=== PATIENT | male | born 1975 | race Hispanic/Latino ===

== ENCOUNTER 2017-02-08 17:04 | Inpatient (IN) | payer MEDICAID, OTHER ==
[2017-02-08 17:05] VITALS: BMI 24.3
[2017-02-08 17:50] LABS: BASO # 0.1 K/uL (0.0-0.2); BASO % 1.1 % (0.0-2.0); EOS # 0.2 K/uL (0.0-0.7); EOS % 2.1 % (0.0-4.0); HEMATOCRIT 43.2 % (35.0-51.0); LYMPH # 4.3 K/uL (1.0-4.3); LYMPH % 42.5 % (20.0-40.0); MEAN CELL VOLUME 95.2 fL (80.0-94.0); MEAN CORPUSCULAR HEMOGLOBIN 33.4 pg (27.0-31.0); MEAN CORPUSCULAR HGB CONC 35.1 g/dL (33.0-37.0); MEAN PLATELET VOLUME 8.1 fL (7.2-11.7); MONO # 0.5 K/uL (0.0-0.8); NRBC % 0.1 % (0.0-2.0); RED CELL DISTRIBUTION WIDTH 12.6 % (11.5-14.5); WHITE BLOOD COUNT 10.2 K/uL (4.8-10.8)
[2017-02-08 18:00] LABS: RBC URINE < 1 /hpf (0-3); URINE BILIRUBIN NEGATIVE (NEGATIVE); URINE BLOOD NEGATIVE (NEGATIVE); URINE COLOR Straw (YELLOW); URINE GLUCOSE (UA) 3+ mg/dL (Normal); URINE KETONE TRACE mg/dL (NEGATIVE); URINE LEUKOCYTE ESTERASE NEG Leu/uL (Negative); URINE PROTEIN NEGATIVE (NEGATIVE); URINE UROBILINOGEN NORMAL mg/dL (0.2-1.0); WBC URINE < 1 /hpf (0-5)
[2017-02-08 18:01] LABS: CHLORIDE 96 mmol/L (98-107); POTASSIUM 4.3 mmol/L (3.6-5.2); SODIUM 134 mmol/L (132-148)
[2017-02-08 18:03] LABS: BILIRUBIN,TOTAL 0.5 mg/dL (0.2-1.3); CARBON DIOXIDE 22 mmol/L (22-30); GFR AFRICAN-AMERICAN > 60
[2017-02-08 18:04] LABS: ALB/GLOB RATIO 1.3 (1.0-2.1); ALCOHOL SERUM 161 mg/dl (0-10); ALKALINE PHOSPHATASE 85 U/L (38-126); ALT/SGPT 47 U/L (21-72); AST/SGOT 31 U/L (17-59); BLOOD UREA NITROGEN 9 mg/dL (9-20); CALCIUM 9.7 mg/dl (8.6-10.4); GLUCOSE,RANDOM 364 mg/dL (75-110); TOTAL PROTEIN 7.9 g/dL (6.3-8.3)
--- NOTE | 2017-02-08 21:46 | PCM.BM ---
<Boo Mckinnon - Last Filed: 02/08/17 21:46> Treatment Plan Problems - Problems identified on initial assessmt Alcohol abuse Date Initiated: 02/08/17 Time Initiated: 20:00 Assessment reference: NA Status: Active Treatment assets and liabiliti Patient Assests: adapts well, educated, ADL independent, good support system, negotiates basic needs Patient Liabilities: dietary restrictions (diabetic diet), substance abuse ( alcohol), medical problems (diabetes) - Milieu Protocol Maintain good personal hygiene: daily Encourage regular showers, daily Remind patient to perform daily oral care Maintain personal safety: every shift Educate patient to report safety concerns to staff, every shift Monitor environment for contraband/sharps Medication safety: Monitor for expected outcome, potential side effects: every shift, Assess barriers to learning: every shift, Assess readiness for medication education: every shift <Gasper Harper - Last Filed: 02/11/17 12:52> - Diagnosis (1) Alcohol use disorder, severe, dependence Status: Acute Interventions: 02/11/17 12:52 * Assess 7x/week regarding severity of withdrawal * Educate regarding risks, benefits, side effects and alternatives of medications * Use Motivational Interviewing for abstinence * Use CBT for relapse prevention * Medication management for withdrawal symptoms * Encourage medication assisted treatment *
--- NOTE | 2017-02-08 23:46 | C.PDOC ---
History Of Present Illness 41 year old male who presents to the ER as a prescreen for ETOH detox. Patient reports his last drink was earlier today. Denies substance abuse or physical complaints. Chief Complaint (Nursing): Substance Abuse History Per: Patient History/Exam Limitations: no limitations Onset/Duration Of Symptoms: Days Current Symptoms Are (Timing): Still Present Suicide/Self Injury Attempted (Context): None Modifying Factor(s): Alcohol Associated Symptoms: denies: Depression, Suicidal Thoughts, Suicidal Plan Involuntary Hold By: None Recent travel outside of the [place]: No Past Medical History Reviewed: Historical Data, Nursing Documentation, Vital Signs Vital Signs: Last Vital Signs Temp 97.8 F 02/08/17 20:27 Pulse 120 H 02/08/17 20:47 Resp 18 02/08/17 20:27 BP 134/88 02/08/17 20:27 Pulse Ox 96 02/08/17 23:58 - Medical History PMH: Diabetes (Type 2), Gastritis - [facility] Procedures CLOSURE SKIN & SUBCUTANEOUS NEC (06/04/03) ESOPHAGOGASTRODUODENOSCOPY [EGD] W/CLOSED BIOPSY (11/12/14) INFLUENZA VACCINATION (02/05/13) LARYGNOSCOPY AND OTH TRACHEOSCOPY (05/02/14) Family History: States: Unknown Family Hx - Social History Hx Tobacco Use: Yes Hx Alcohol Use: Yes Hx Substance Use: No - Immunization History Hx Tetanus Toxoid Vaccination: Yes Hx Influenza Vaccination: No Hx Pneumococcal Vaccination: No Review Of Systems Constitutional: Negative for: Fever, Chills Gastrointestinal: Negative for: Nausea, Vomiting, Diarrhea Physical Exam - Physical Exam Appears: Non-toxic, No Acute Distress Skin: Normal Color, Warm, Dry Head: Atraumatic, Normacephalic Oral Mucosa: Moist Chest: Symmetrical Cardiovascular: Rhythm Regular Respiratory: Normal Breath Sounds, No Rales, No Rhonchi, No Wheezing Gastrointestinal/Abdominal: Soft, No Tenderness Neurological/Psych: Oriented x3, Normal Speech, Normal Cognition ED Course And Treatment - Laboratory Results Result Diagrams: 02/08/17 17:44 02/08/17 17:44 O2 Sat by Pulse Oximetry: 96 (Room air) Pulse Ox Interpretation: Normal Progress Note: Blood work and urinalysis ordered. Crisis notified. Disposition - Disposition Disposition: HOSPITALIZED Disposition Time: 19:00 Condition: STABLE - Clinical Impression Clinical Impression: Alcohol abuse - Scribe Statement The provider has reviewed the documentation as recorded by the Scribe Brendan Joseph All medical record entries made by the Scribe were at my direction and personally dictated by me. I have reviewed the chart and agree that the record accurately reflects my personal performance of the history, physical exam, medical decision making, and the department course for this patient. I have also personally directed, reviewed, and agree with the discharge instructions and disposition.
[2017-02-09] MEDS: Multiple Vitamins Tab PO SCH (09:34)
--- NOTE | 2017-02-09 11:34 | PCM.PSYCH ---
Initial Psychiatric Evaluation - Initial Psychiatric Evaluation Type of Admission: Voluntary Legal Status: Capacity Chief Complaint (in patient's own words): "Alcohol" History of Present Illness and Precipitating Events: The patient is seen, chart reviewed and case discussed. This is a 41-year-old male, single with no child, lives with his father and brother in [place]. 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 The patient admits to drinking from 1 pint to 3 pints every day for the past 2 years. However he first started drinking heavily 10 years ago. He smokes 2 packs per day cigarette and denies all other drugs. No history of DTs or seizures. He has never been to alcohol treatment before including AA. Past psych history: Denies Family psych history: Denies Medical history: Diabetes. He was on metformin but he stopped and just kept drinking and his sugar was very high on admission. Current Medications: Active Medications Generic Name Dose Route Start Last Admin Trade Name Freq PRN Reason Stop Dose Admin Chlordiazepoxide 25 mg 02/08/17 21:15 02/09/17 06:09 Librium PO 02/12/17 21:14 25 mg Q6 LUCILA Administration Taper Chlordiazepoxide 25 mg 02/08/17 22:20 Librium PO Q4H PRN alcohol withdrawal Clonidine HCl 0.1 mg 02/08/17 22:18 02/09/17 08:47 Catapres PO 0.1 mg Q4H PRN Administration Symptoms of alcohol withdrawl Folic Acid 1 mg 02/09/17 10:00 02/09/17 09:34 Folic Acid PO 1 mg DAILY LUCILA Administration Gabapentin 300 mg 02/09/17 10:00 02/09/17 09:37 Neurontin PO 300 mg TID LUCILA Administration Hydroxyzine HCl 50 mg 02/08/17 22:20 02/09/17 02:57 Atarax PO 50 mg Q6H PRN Administration Anxiety Ibuprofen 600 mg 02/08/17 22:20 Motrin Tab PO Q6H PRN Pain, moderate (4-7) Metformin HCl 500 mg 02/08/17 21:30 02/09/17 09:34 Glucophage PO 500 mg BID LUCILA Administration Multivitamins 1 tab 02/09/17 10:00 02/09/17 09:34 Hexavitamin PO 1 tab DAILY LUCILA Administration Nicotine 1 patch 02/09/17 10:00 02/09/17 09:34 Nicoderm Cq TD 1 patch DAILY LUCILA Administration Pneumococcal Polyvalent Vaccine 0.5 ml 02/11/17 10:00 Pneumovax 23 Vaccine IM 02/11/17 10:01 .ONCE ONE Quetiapine Fumarate 100 mg 02/09/17 22:00 Seroquel PO HS LUCILA Thiamine HCl 100 mg 02/09/17 10:00 02/09/17 09:37 Vitamin B1 Tab PO 100 mg DAILY LUCILA Administration Trazodone HCl 100 mg 02/08/17 22:18 Desyrel PO HS PRN Insomnia Past Psychiatric History - Past Psychiatric History Previous Treatment History: None Pertinent Medical Hx (Current Medical&Sleep Prob, Allergies): Allergies Allergy/AdvReac Type Severity Reaction Status Date / Time No Known Allergies Allergy Verified 02/08/17 17:12 MetFORMIN [glucoPHAGE] 1,000 mg PO DAILY #14 tab 12/22/16 Review of Systems - Neurological Neurological: UNREMARKABLE - Psychiatric Psychiatric: Abnormal Sleep Pattern, Anxiety. absent: Depression, Hallucinations, Homicidal Ideation, Suicidal Ideation Mental Status Examination - Personal Presentation Personal Presentation: Looks stated age - Affect Affect: Constricted - Motor Activity Motor Activity: Calm - Reliability in Providing Information Reliability in Providing Information: Good - Speech Speech: Organized - Mood Mood: Anxious - Formal Thought Process Formal Thought Process: No Impairment - Cognitive Functions Orientation: Person, Place, Situation, Time Sensorium: Alert Estimate of Intelligence: Average Judgement: Intact, as evidence by: Insight regarding need for hospitalization Memory: Recent intact, as evidence by: Ability to recall events of the day, Remote intact, as evidenced by: Abilit to recall sig. life events - Risk Risk: Withdrawal, Diminished functioning - Strength & Assets Inventory Strength & Assets Inventory: Cooperative - Limitations Limitations: Other DSM 5 DX - DSM 5 DSM 5 Diagnosis: Alcohol withdrawal - uncomplicated Alcohol use d/o - severe Tobacco use d/o - severe - Recommended/Plan of Treatment Treatment Recommendations and Plan of Treatment: Librium detox As needed medications Seroquel for sleep Gabapentin for augmentation Attend groups and activities Supportive therapy and psychoeducation [place] for abstinence CBT for relapse prevention Encourage MAT Refer to rehab or IOP Attend self-help groups as well Resume metformin Check accucheck Consult if needed 34 min Projected ELOS: 5 days Prognosis: good with treatment Discharge Plan and Discharge Criteria: No wdw sxs refer to rehab - Smoking Cessation Smoking Cessation Initiated: Yes
[2017-02-09 18:45] LABS: MAGNESIUM 1.7 mg/dL (1.6-2.3)
[2017-02-09 19:15] LABS: THYROID STIMULATING HORMONE 0.54 mIU/L (0.46-4.68)
[2017-02-10] MEDS: Multiple Vitamins Tab PO SCH (09:31)
--- NOTE | 2017-02-10 12:48 | RAD ---
HISTORY: productive cough, alcohol patient COMPARISON: No prior. TECHNIQUE: Chest PA and lateral FINDINGS: LUNGS: No active pulmonary disease. PLEURA: No significant pleural effusion identified. No pneumothorax apparent. CARDIOVASCULAR: Normal. OSSEOUS STRUCTURES: No significant abnormalities. VISUALIZED UPPER ABDOMEN: Normal. OTHER FINDINGS: None. IMPRESSION: No active disease.
--- NOTE | 2017-02-10 12:48 | PCM.PYCHPN ---
Psychiatric Progress Note - Psychiatric Progress Note Patient seen today, length of contact: 16 min Patient Chief Complaint: "Not well" Problems Identified/Issues Discussed: The pt is seen, chart reviewed, case discussed with staff. Support given, CBT and [place] used briefly No new symptoms reported, improving slowly and needs more time No SEs from medications, risks discussed. After care discussed Medication Change: Yes (detox changes daily, and is adjusted) Medical Record Reviewed: Yes Mental Status Examination - Cognitive Function Orientation: Person, Place, Situation, Time Memory: Impaired Attention: Poor Concentration: Poor Association: WNL Fund of Knowledge: WNL - Mood Mood: Anxious - Affect Affect: Constricted - Speech Speech: Appropriate - Formal Thought Process Formal Thought Process: No Impairment - Suicidal Ideation Suicidal Ideation: No - Homicidal Ideation Homicidal Ideation: No Goal/Treatment Plan - Goal/Treatment Plan Need for Continued Stay: Discharge may exacerbated symptoms, Severe functional impairment Progress Toward Problem(s) and Goals/Treatment Plan: Librium detox As needed medications Seroquel for sleep Gabapentin for augmentation Attend groups and activities Supportive therapy and psychoeducation [place] for abstinence CBT for relapse prevention Encourage MAT Refer to rehab or IOP Attend self-help groups as well Resume metformin Check accucheck Consult if needed
[2017-02-10] MEDS: Propranolol 60 mg ER Cap PO SCH (14:04)
[2017-02-11] MEDS: Multiple Vitamins Tab PO SCH (09:17)
[2017-02-11] MEDS ORDERED: Pneumococcal 23-Valent Vaccine IM ONE (10:00)
--- NOTE | 2017-02-11 13:55 | PCM.PYCHPN ---
Psychiatric Progress Note - Psychiatric Progress Note Patient seen today, length of contact: 16 min Patient Chief Complaint: "Feeling muhc better than before" Problems Identified/Issues Discussed: The pt is seen, chart reviewed, case discussed with staff. Pt stating he is feeling more anxious and still shaking Educated patient on controlling his blood sugar levels. No SEs from medications, risks discussed. Discussed starting patient on naltrexone. Pt plans to go to AA meetings and CRC after discharge Medication Change: Yes (detox changes daily, and is adjusted) Medical Record Reviewed: Yes Mental Status Examination - Cognitive Function Orientation: Person, Place, Situation, Time Memory: Intact Attention: WNL Concentration: WNL Association: WNL Fund of Knowledge: WNL - Mood Mood: Anxious - Affect Affect: Constricted - Speech Speech: Appropriate - Formal Thought Process Formal Thought Process: No Impairment - Suicidal Ideation Suicidal Ideation: No - Homicidal Ideation Homicidal Ideation: No Goal/Treatment Plan - Goal/Treatment Plan Need for Continued Stay: Discharge may exacerbated symptoms Progress Toward Problem(s) and Goals/Treatment Plan: Librium detox As needed medications Seroquel for sleep Gabapentin for augmentation Attend groups and activities Supportive therapy and psychoeducation [place] for abstinence CBT for relapse prevention Encourage MAT Refer to rehab or IOP Attend self-help groups as well Resume metformin Check accucheck Consult if needed - Smoking Cessation Smoking Cessation Initiated: No
[2017-02-11] MEDS: Propranolol 60 mg ER Cap PO SCH (14:24)
[2017-02-12] MEDS: Multiple Vitamins Tab PO SCH (09:49)
--- NOTE | 2017-02-12 13:29 | PCM.PYCHPN ---
Psychiatric Progress Note - Psychiatric Progress Note Patient seen today, length of contact: 16 min Patient Chief Complaint: "Feels Good" Problems Identified/Issues Discussed: The pt is seen, chart reviewed, case discussed with staff. Support given, CBT and [place] used briefly Still feels anxious and shaky , feels pain all around his joints. Pt slept well No SEs from medications, risks discussed. Discussed discharge plans with patient Medication Change: Yes (detox changes daily, and is adjusted) Medical Record Reviewed: Yes Mental Status Examination - Cognitive Function Orientation: Person, Place, Situation, Time Memory: Intact Attention: WNL Concentration: WNL Association: WNL Fund of Knowledge: WNL - Mood Mood: Anxious - Affect Affect: Constricted - Speech Speech: Stammering - Formal Thought Process Formal Thought Process: No Impairment - Suicidal Ideation Suicidal Ideation: No - Homicidal Ideation Homicidal Ideation: No Goal/Treatment Plan - Goal/Treatment Plan Need for Continued Stay: Discharge may exacerbated symptoms Progress Toward Problem(s) and Goals/Treatment Plan: Librium detox As needed medications Seroquel for sleep Gabapentin for augmentation Attend groups and activities Supportive therapy and psychoeducation [place] for abstinence CBT for relapse prevention Encourage MAT Refer to rehab or IOP Attend self-help groups as well Resume metformin Check accucheck Consult if needed - Smoking Cessation Smoking Cessation Initiated: No
[2017-02-12] MEDS: Aluminum Hydroxide/Magnesium Hydroxide Susp (30 mL) PO PRN (16:48)
[2017-02-13 06:55] VITALS: RESP 18
[2017-02-13] MEDS: Aluminum Hydroxide/Magnesium Hydroxide Susp (30 mL) PO PRN ×2 (08:58→20:13)
[2017-02-13] MEDS: Multiple Vitamins Tab PO SCH (09:54)
--- NOTE | 2017-02-13 14:20 | PCM.PYCHPN ---
Psychiatric Progress Note - Psychiatric Progress Note Patient seen today, length of contact: 16 min Patient Chief Complaint: "Feels Good" Problems Identified/Issues Discussed: The pt is seen, chart reviewed, case discussed with staff. Support given, CBT and [place] used briefly Pt slept well PT still feels anxious but having fewer tremors than yesterday. Recommended using naltrexone up to 6 months after discharge Discussed going to out [facility] in [place] and attend AA meetings in the area Medication Change: Yes (detox changes daily, and is adjusted) Medical Record Reviewed: Yes Mental Status Examination - Cognitive Function Orientation: Person, Place, Situation, Time Memory: Intact Attention: WNL Concentration: WNL Association: WNL Fund of Knowledge: WNL - Mood Mood: Anxious - Affect Affect: Constricted - Speech Speech: Stammering - Formal Thought Process Formal Thought Process: No Impairment - Suicidal Ideation Suicidal Ideation: No - Homicidal Ideation Homicidal Ideation: No Goal/Treatment Plan - Goal/Treatment Plan Need for Continued Stay: Discharge may exacerbated symptoms Progress Toward Problem(s) and Goals/Treatment Plan: Librium detox As needed medications Seroquel for sleep Gabapentin for augmentation Attend groups and activities Supportive therapy and psychoeducation [place] for abstinence CBT for relapse prevention Encourage MAT Refer to rehab or IOP Attend self-help groups as well Resume metformin Check accucheck Consult if needed
--- NOTE | 2017-02-14 08:43 | PCM.PYCHDC ---
Mental Status Examination - Mental Status Examination Orientation: Person, Place, Situation, Time Memory: Intact Mood: Anxious Affect: Constricted Speech: Stammering Attention: WNL Concentration: WNL Association: WNL Fund of Knowledge: WNL Formal Thought Process: No Impairment Suicidal Ideation: No Current Homicidal Ideation?: No Discharge Summary - Discharge Note Reason for Hospitalization: Alcohol Withdrawal and Detox Laboratory Data: Abnormal Lab Results 02/13/17 07:36 POC Glucose (mg/dL) 329 H Consultations:: List each consultation separately and include: 1. Reason for request. 2. Findings. 3. Follow-up Summary of Hospital Course include:: 1. Description of specific treatment plan utilized for patients during their course of treatmen. 2. Summarize the time- course for resolution of acute symptoms and/or regressed behaviors. 3. Describe issues identified and worked on during hospitalization. 4. Describe medication utilized. 5. Describe medical problems identified and treated. 6. Reassessment of suicide risk Summary of Hospital Course: The pt was admitted and started on treatment with psychotherapy, support, psychoeducation and medications. [place] and CBT used. The pt attended groups and activities, as well as milieu therapy. All the risks and benefits of medications are discussed and the patient understood and agreed. The pt improved with the treatments provided Still Feels anxious but has little to no tremors Has been sleeping well Pt talked to to attend [facility] facility, [facility] after discharge - Final Diagnosis (DSM 5) Condition upon Discharge: STABLE DSM 5: Alcohol Use disorder- Severe Alcohol Withdrawal Disposition: HOME/ ROUTINE Follow-up Treatment Plan: Continue below medications after discharge. Discharged to [facility] and recommended to attend AA meetings Use relapse prevention skills Return to ER or call 911 if suicidal, homicidal or symptoms relapse. Stay away from stress, alcohol and drugs. See primary doctor regularly and get labs. Prescriptions/Medication Reconciliation: Gabapentin [Neurontin] 400 mg PO TID #90 cap metFORMIN [glucOPHAGE] 500 mg PO BID #60 tab Naltrexone [Revia] 50 mg PO DAILY #30 tab QUEtiapine [Seroquel] 100 mg PO HS #30 tab traZODone [Desyrel] 50 mg PO HS PRN #30 tab PRN Reason: Insomnia - Smoking Cessation Smoking Cessation Medication prescribed: No - Antipsychotic Medications Pt discharged on 2 or more routine antipsychotic medications: No
[2017-02-14] MEDS: Multiple Vitamins Tab PO SCH (09:00)
[2017-02-14] MEDS: Aluminum Hydroxide/Magnesium Hydroxide Susp (30 mL) PO PRN (09:03)
[2017-02-14 09:12] VITALS: BP 120/77; PULSE 93; TEMP 97.6; O2SAT 99
== END 2017-02-14 10:00 | disposition home or self-care (01) | DRG 751 ==
LOC: C.ER 17:04 → C.7D 19:16
PROVIDERS: ADMIT Psychiatry & Neurology Psychiatry; ATTEND Psychiatry & Neurology Psychiatry
DX: F10.239 Alcohol dependence with withdrawal, unspecified (principal); E11.9 Type 2 diabetes mellitus without complications; F17.210 Nicotine dependence, cigarettes, uncomplicated

== ENCOUNTER 2017-06-20 13:25 | Inpatient (IN) | payer MEDICAID, OTHER ==
[2017-06-20 13:25] VITALS: BMI 24.3
[2017-06-20 15:07] LABS: URINE BACTERIA RARE (<OCC); URINE BILIRUBIN NEGATIVE (NEGATIVE); URINE BLOOD NEGATIVE (NEGATIVE); URINE CLARITY Clear (Clear); URINE COLOR Yellow (YELLOW); URINE GLUCOSE (UA) 3+ mg/dL (Normal); URINE LEUKOCYTE ESTERASE NEG Leu/uL (Negative); URINE NITRATE NEGATIVE (NEGATIVE); URINE PROTEIN NEGATIVE (NEGATIVE)
[2017-06-20 15:10] LABS: BASO % 0.5 % (0.0-2.0); EOS % 0.3 % (0.0-4.0); HEMOGLOBIN 16.5 g/dL (12.0-18.0); LYMPH # 1.2 K/uL (1.0-4.3); LYMPH % 15.5 % (20.0-40.0); MEAN CORPUSCULAR HEMOGLOBIN 31.8 pg (27.0-31.0); MEAN CORPUSCULAR HGB CONC 34.9 g/dL (33.0-37.0); MEAN PLATELET VOLUME 8.3 fL (7.2-11.7); MONO # 0.4 K/uL (0.0-0.8); MONO % 4.5 % (0.0-10.0); NEUT # 6.3 K/uL (1.8-7.0); NEUT % 79.2 % (50.0-75.0); RBC 5.2 Mil/uL (4.40-5.90); RED CELL DISTRIBUTION WIDTH 15.7 % (11.5-14.5); WHITE BLOOD COUNT 7.9 K/uL (4.8-10.8)
[2017-06-20 15:16] LABS: MEAN CELL VOLUME 91.2 fL (80.0-94.0)
[2017-06-20 15:23] LABS: ALBUMIN 4.5 g/dL (3.5-5.0); BLOOD UREA NITROGEN 13 mg/dL (9-20); CALCIUM 9.5 mg/dl (8.6-10.4); GFR AFRICAN-AMERICAN > 60; GFR NON-AFRICAN AMERICAN > 60
[2017-06-20 15:24] LABS: ALB/GLOB RATIO 1.2 (1.0-2.1); ALT/SGPT 34 U/L (21-72); AST/SGOT 49 U/L (17-59)
[2017-06-20 15:42] LABS: BARBITURATES, UR NEGATIVE (NEGATIVE); BENZODIAZEPINES, UR NEGATIVE (NEGATIVE); OPIATES, UR NEGATIVE (NEGATIVE); PHENCYCLIDINE, UR NEGATIVE (NEGATIVE)
[2017-06-20] MEDS ORDERED: Sodium Chloride 0.9% 1,000 ML IV ONE (15:42)
[2017-06-20] MEDS ORDERED: Potassium Chloride 20 mEq ER Tab PO ONE (16:01)
[2017-06-20] MEDS ORDERED: Sodium Chloride 0.9% 250 ML IV ONE (16:01)
[2017-06-20] MEDS: Potassium Chloride 20 mEq ER Tab PO SCH (16:02)
[2017-06-20] MEDS ORDERED: Multivitamin (MVI) 10 ML, Thiamine 100 MG, Folic Acid 1 MG in Sodium Chloride 0.9% 1,00... IV ONE (16:43)
[2017-06-20 16:51] VITALS: RESP 20
[2017-06-20] MEDS: Multivitamin (MVI) 10 ML, Thiamine 100 MG, Folic Acid 1 MG in Sodium Chloride 0.9% 1,00... IV SCH (18:50)
[2017-06-20 19:10] LABS: MAGNESIUM 1.6 mg/dL (1.6-2.3)
--- NOTE | 2017-06-20 20:14 | C.PDOC ---
History Of Present Illness 41 y/o male presents to the ER for detox from ETOH. Patient reports that his last drink was at 5:30 pm yesterday. Patient denies fever, cough, chest pain, and SOB. Chief Complaint (Nursing): Substance Abuse History Per: Patient History/Exam Limitations: no limitations Past Medical History Reviewed: Historical Data, Nursing Documentation, Vital Signs Vital Signs: Last Vital Signs Temp 98.2 F 06/20/17 16:30 Pulse 120 H 06/20/17 16:30 Resp 20 06/20/17 16:30 BP 118/86 06/20/17 16:30 Pulse Ox 98 06/20/17 20:23 - Medical History PMH: Anxiety, Diabetes (metformin), Gastritis Denies: Depression, Hepatitis, HIV, HTN, Chronic Kidney Disease, Seizures, Sexually Transmitted Disease Surgical History: No Surg Hx - [facility] Procedures CLOSURE SKIN & SUBCUTANEOUS NEC (06/04/03) ESOPHAGOGASTRODUODENOSCOPY [EGD] W/CLOSED BIOPSY (11/12/14) INFLUENZA VACCINATION (02/05/13) LARYGNOSCOPY AND OTH TRACHEOSCOPY (05/02/14) Family History: States: No Known Family Hx - Social History Hx Tobacco Use: Yes Hx Alcohol Use: Yes Hx Substance Use: Yes - Immunization History Hx Tetanus Toxoid Vaccination: No Hx Influenza Vaccination: No Hx Pneumococcal Vaccination: No Review Of Systems Constitutional: Negative for: Fever, Chills Cardiovascular: Negative for: Chest Pain Respiratory: Negative for: Cough, Shortness of Breath Physical Exam - Physical Exam Appears: No Acute Distress Skin: Normal Color, Warm Head: Atraumatic, Normacephalic Eye(s): bilateral: Normal Inspection Nose: Normal Oral Mucosa: Moist Neck: Supple Chest: Symmetrical Cardiovascular: Rhythm Regular Respiratory: Normal Breath Sounds, No Accessory Muscle Use, No Rales, No Rhonchi , No Wheezing Neurological/Psych: Oriented x3, Normal Speech, Other (hand tremors) Other Neurological Findings: Other (mild tongue fasciculation) ED Course And Treatment - Laboratory Results Result Diagrams: 06/20/17 15:01 06/20/17 15:01 O2 Sat by Pulse Oximetry: 98 (RA) Pulse Ox Interpretation: Normal Progress Note: After reviewing the labs, patient has been admitted to ' s service for low sodium, low potassium, and high glucose levels. Disposition - Disposition Disposition: HOSPITALIZED Disposition Time: 15:30 Condition: STABLE - Clinical Impression Clinical Impression: Alcohol use disorder, severe, dependence, Hyperglycemia, Hyponatremia - Scribe Statement The provider has reviewed the documentation as recorded by the Michelle Ruelas Provider Attestation: All medical record entries made by the Michelle were at my direction and personally dictated by me. I have reviewed the chart and agree that the record accurately reflects my personal performance of the history, physical exam, medical decision making, and the department course for this patient. I have also personally directed, reviewed, and agree with the discharge instructions and disposition.
[2017-06-21 08:41] LABS: BASO % 0.9 % (0.0-2.0); EOS # 0.1 K/uL (0.0-0.7); EOS % 1.7 % (0.0-4.0); LYMPH # 2.2 K/uL (1.0-4.3); LYMPH % 44.1 % (20.0-40.0); MEAN CELL VOLUME 90.3 fL (80.0-94.0); MEAN CORPUSCULAR HEMOGLOBIN 31.3 pg (27.0-31.0); MEAN CORPUSCULAR HGB CONC 34.7 g/dL (33.0-37.0); MONO # 0.2 K/uL (0.0-0.8); MONO % 4.4 % (0.0-10.0); NEUT # 2.5 K/uL (1.8-7.0); NEUT % 48.9 % (50.0-75.0); NRBC % 0.1 % (0.0-2.0); RBC 4.45 Mil/uL (4.40-5.90); RED CELL DISTRIBUTION WIDTH 15.6 % (11.5-14.5); WHITE BLOOD COUNT 5.1 K/uL (4.8-10.8)
[2017-06-21 08:43] LABS: ALB/GLOB RATIO 1.3 (1.0-2.1); ALBUMIN 3.6 g/dL (3.5-5.0); ALT/SGPT 24 U/L (21-72); AST/SGOT 29 U/L (17-59); BLOOD UREA NITROGEN 9 mg/dL (9-20); CALCIUM 8.2 mg/dl (8.6-10.4); GFR AFRICAN-AMERICAN > 60; GFR NON-AFRICAN AMERICAN > 60
[2017-06-21 08:51] LABS: HEMOGLOBIN 13.9 g/dL (12.0-18.0)
[2017-06-21] MEDS: Potassium Chloride 20 mEq ER Tab PO SCH (09:51)
--- NOTE | 2017-06-21 13:33 | PCM.PSYCH ---
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 The patient lives with his father and brother after spending 120 days at [facility] in [place]. He reports that he was there and returned with dirty urine because he relapsed and started to drink again. He reports ringing 2 pints of alcohol a day and smokes 1-2 packs of cigarettes a day. He began drinking 10 years ago but did not start drinking this heavily until 2 years ago. He denies the use of other drugs or substances. The patient reports that he came to the hospital to be admitted to detox but because his sodium and potassium were low and sugar was high they admitted him to the medical floor. The patient reports that upon finishing detox he would like to return to [facility]. Patient reports tremors but denies previous seizure and DTs. Detox Hx: has been to detox previously, number of times is unknown Rehab Hx: unknown Medical Hx: DM Type II Medications: denies Psych Hx: denies Fam psych Hx: denies Fam Substance Abuse Hx: denies Current Medications: Active Medications Generic Name Dose Route Start Last Admin Trade Name Danelle PRN Reason Stop Dose Admin Chlordiazepoxide 25 mg 06/21/17 12:00 06/21/17 11:24 Librium PO 06/26/17 11:59 25 mg Q6H [facility] Administration Taper Chlordiazepoxide 25 mg 06/21/17 11:12 Librium PO Q4H PRN Alcohol Withdrawal Clonidine HCl 0.1 mg 06/21/17 09:30 06/21/17 09:50 Catapres PO Not Given Q6H LUCILA Heparin Sodium (Porcine) 5,000 units 06/21/17 10:00 06/21/17 10:24 Heparin SC 5,000 units Q12 [facility] Administration Multivitamins/Vitamin C 10 ml/ 1,011.2 mls @ 100 mls/hr 06/20/17 18:00 18:50 Thiamine HCl 100 mg/ Folic IV 100 mls/hr Acid 1 mg/ Sodium Chloride Q24H [facility] Administration Lorazepam 1 mg 06/20/17 16:46 06/21/17 12:18 Ativan IVP 1 mg Q6H PRN Administration Anxiety Metformin HCl 1,000 mg 06/20/17 18:00 06/21/17 09:51 Glucophage PO 1,000 mg BID [facility] Administration Pneumococcal Polyvalent Vaccine 0.5 ml 06/23/17 10:00 Pneumovax 23 Vaccine IM 06/23/17 10:01 .ONCE ONE Potassium Chloride 40 meq 06/20/17 15:45 06/21/17 09:51 K-Dur 20 Meq Er Tab PO 40 meq DAILY [facility] Administration Trazodone HCl 100 mg 06/21/17 22:00 Desyrel PO HS [facility] Past Psychiatric History - Past Psychiatric History Previous Treatment History: Inpatient Pertinent Medical Hx (Current Medical&Sleep Prob, Allergies): Allergies Allergy/AdvReac Type Severity Reaction Status Date / Time No Known Allergies Allergy Verified 05/18/17 16:38 MetFORMIN [glucoPHAGE] 1,000 mg PO ONCE #20 tab 05/18/17 Review of Systems - Neurological Neurological: Tremor - Psychiatric Psychiatric: UNREMARKABLE Mental Status Examination - Personal Presentation Personal Presentation: Looks stated age - Affect Affect: Broad - Motor Activity Motor Activity: Calm - Reliability in Providing Information Reliability in Providing Information: Good - Speech Speech: Organized - Mood Mood: Anxious - Formal Thought Process Formal Thought Process: No Impairment - Obsessions/Compulsions Obsessions: None Compulsions: None - Cognitive Functions Orientation: Person, Place, Situation, Time Sensorium: Alert Attention/Concentration: Attentive Abstract Thinking: Innis Estimate of Intelligence: Average Judgement: Intact, as evidence by: Good judgement, Intact, as evidence by: Insight regarding need for hospitalization Memory: Recent intact, as evidence by: Ability to recall events of the day, Remote intact, as evidenced by: Abilit to recall sig. life events - Risk Risk: Seizure, Withdrawal - Strength & Assets Inventory Strength & Assets Inventory: Family support, Employment history, Cooperative DSM 5 DX - DSM 5 DSM 5 Diagnosis: Alcohol Withdrawal Alcohol Use d/o - severe Tobacco Use d/o - severe - Recommended/Plan of Treatment Treatment Recommendations and Plan of Treatment: Alcohol detox As needed medications All risks, benefits and alternatives of the meds discussed, and the pt agreed and understood. Therapy and psychoeducation [place] for abstinence CBT for relapse prevention Encourage MAT Refer back to [facility] Smoking cessation with [place] Nicotine patch When patient is medically cleared, transfer to detox - Please contact insurance underwriter sales. 34 min Projected ELOS: dependent on medical clearance Prognosis: good with treatment Discharge Plan and Discharge Criteria: Rehab and MAT - Smoking Cessation Smoking Cessation Initiated: Yes
[2017-06-21] MEDS: Alum-Mag Hydrox-Simethicone Susp (30 mL) PO PRN (17:28)
--- NOTE | 2017-06-21 18:36 | CP.PCM.HP ---
Past Patient History - Infectious Disease Hx of Infectious Diseases: None - Tetanus Immunizations Tetanus Immunization: Unknown - Past Medical History & Family History Past Medical History?: Yes - Past Social History Smoking Status: Light Smoker < 10 Cigarettes Daily - CARDIAC Hx Hypertension: No - PULMONARY Hx Tuberculosis: No - NEUROLOGICAL Hx Seizures: No - HEENT Hx HEENT Problems: No - RENAL Hx Chronic Kidney Disease: No - ENDOCRINE/METABOLIC Hx Endocrine Disorders: Yes Hx Diabetes Mellitus Type 2: Yes - HEMATOLOGICAL/ONCOLOGICAL Hx Human Immunodeficiency Virus (HIV): No - INTEGUMENTARY Hx Dermatological Problems: No (TATTOO TO LEFT LEG.) - MUSCULOSKELETAL/RHEUMATOLOGICAL Hx Falls: No - GASTROINTESTINAL Hx Gastritis: Yes - GENITOURINARY/GYNECOLOGICAL Hx Sexually Transmitted Disorders: No - PSYCHIATRIC Hx Anxiety: Yes Hx Depression: No Hx Substance Use: Yes - SURGICAL HISTORY Hx Surgeries: No - ANESTHESIA Hx Anesthesia: Yes Hx Anesthesia Reactions: No Meds Allergies/Adverse Reactions: Allergies Allergy/AdvReac Type Severity Reaction Status Date / Time No Known Allergies Allergy Verified 05/18/17 16:38 Physical Exam - Constitutional Appears: Well - Head Exam Head Exam: ATRAUMATIC, NORMAL INSPECTION, NORMOCEPHALIC - Eye Exam Eye Exam: EOMI, Normal appearance, PERRL Pupil Exam: NORMAL ACCOMODATION, PERRL - ENT Exam ENT Exam: Mucous Membranes Moist, Normal Exam - Neck Exam Neck exam: Positive for: Normal Inspection - Respiratory Exam Respiratory Exam: Decreased Breath Sounds - Cardiovascular Exam Cardiovascular Exam: REGULAR RHYTHM, +S1, +S2 - GI/Abdominal Exam GI & Abdominal Exam: Diminished Bowel Sounds, Soft - Rectal Exam Rectal Exam: Deferred Results - Vital Signs Recent Vital Signs: Last Vital Signs Temp 98.1 F 06/21/17 16:30 Pulse 95 H 06/21/17 16:30 Resp 20 06/21/17 16:30 BP 133/87 06/21/17 16:30 Pulse Ox 99 06/21/17 16:30 - Labs Result Diagrams: 06/21/17 08:22 06/21/17 08:22 Labs: Laboratory Results - last 24 hr 06/20/17 06/20/17 06/21/17 15:01 21:42 08:22 WBC 5.1 RBC 4.45 Hgb 13.9 D Hct 40.2 MCV 90.3 MCH 31.3 H MCHC 34.7 RDW 15.6 H Plt Count 112 L D MPV 9.0 Neut % (Auto) 48.9 L Lymph % (Auto) 44.1 H [place] % (Auto) 4.4 Eos % (Auto) 1.7 Baso % (Auto) 0.9 Neut # (Auto) 2.5 Lymph # (Auto) 2.2 [place] # (Auto) 0.2 Eos # (Auto) 0.1 Baso # (Auto) 0.0 Differential Comment Sodium 123 L Potassium 3.1 L Chloride 75 L D Carbon Dioxide 32 H Anion Gap 19 BUN 13 Creatinine 0.8 Est GFR ( Amer) > 60 Est GFR (Non-Af Amer) > 60 POC Glucose (mg/dL) 277 H Random Glucose 392 H Calcium 9.5 Phosphorus 3.8 Magnesium 1.6 Total Bilirubin 1.7 H AST 49 ALT 34 Alkaline Phosphatase 110 Total Protein 8.1 Albumin 4.5 Globulin 3.6 Albumin/Globulin Ratio 1.2 Alcohol, Quantitative < 10 06/21/17 06/21/17 08:22 16:44 WBC RBC Hgb Hct MCV MCH MCHC RDW Plt Count MPV Neut % (Auto) Lymph % (Auto) [place] % (Auto) Eos % (Auto) Baso % (Auto) Neut # (Auto) Lymph # (Auto) [place] # (Auto) Eos # (Auto) Baso # (Auto) Differential Comment Sodium 128 L Potassium 3.2 L Chloride 92 L D Carbon Dioxide 26 Anion Gap 13 BUN 9 Creatinine 0.5 L Est GFR ( Amer) > 60 Est GFR (Non-Af Amer) > 60 POC Glucose (mg/dL) 265 H Random Glucose 267 H Calcium 8.2 L Phosphorus Magnesium Total Bilirubin 0.9 AST 29 ALT 24 Alkaline Phosphatase 86 Total Protein 6.5 Albumin 3.6 Globulin 2.8 Albumin/Globulin Ratio 1.3 Alcohol, Quantitative
[2017-06-21] MEDS: Multivitamin (MVI) 10 ML, Thiamine 100 MG, Folic Acid 1 MG in Sodium Chloride 0.9% 1,00... IV SCH (18:46)
[2017-06-22 08:36] LABS: BASO % 0.9 % (0.0-2.0); EOS # 0.2 K/uL (0.0-0.7); EOS % 3.1 % (0.0-4.0); HEMOGLOBIN 12.5 g/dL (12.0-18.0); LYMPH # 2.3 K/uL (1.0-4.3); LYMPH % 45.7 % (20.0-40.0); MEAN CELL VOLUME 91.9 fL (80.0-94.0); MEAN CORPUSCULAR HEMOGLOBIN 31.7 pg (27.0-31.0); MEAN CORPUSCULAR HGB CONC 34.5 g/dL (33.0-37.0); MEAN PLATELET VOLUME 9.1 fL (7.2-11.7); MONO # 0.3 K/uL (0.0-0.8); MONO % 5.4 % (0.0-10.0); NEUT # 2.3 K/uL (1.8-7.0); NEUT % 44.9 % (50.0-75.0); RBC 3.94 Mil/uL (4.40-5.90); RED CELL DISTRIBUTION WIDTH 15.5 % (11.5-14.5); WHITE BLOOD COUNT 5.1 K/uL (4.8-10.8)
[2017-06-22 09:00] LABS: ALB/GLOB RATIO 1.2 (1.0-2.1); ALBUMIN 3.3 g/dL (3.5-5.0); ALT/SGPT 38 U/L (21-72); AST/SGOT 35 U/L (17-59); BLOOD UREA NITROGEN 9 mg/dL (9-20); CALCIUM 8.2 mg/dl (8.6-10.4); GFR AFRICAN-AMERICAN > 60; GFR NON-AFRICAN AMERICAN > 60
[2017-06-22] MEDS: Potassium Chloride 20 mEq ER Tab PO SCH (09:47)
[2017-06-22] MEDS: Pantoprazole 40 mg EC Tab PO SCH (09:47)
[2017-06-22] MEDS: Alum-Mag Hydrox-Simethicone Susp (30 mL) PO PRN (09:58)
[2017-06-22] MEDS: Sodium Chloride 0.9% 1,000 ML IV SCH (15:30)
[2017-06-22] MEDS: Multivitamin (MVI) 10 ML, Thiamine 100 MG, Folic Acid 1 MG in Sodium Chloride 0.9% 1,00... IV SCH (17:34)
--- NOTE | 2017-06-22 17:56 | CP.PCM.PN ---
Subjective - Date & Time of Evaluation Date of Evaluation: 06/22/17 Time of Evaluation: 08:40 - Subjective Subjective: clinically same Objective - Vital Signs/Intake and Output Vital Signs (last 24 hours): Temp Pulse Resp BP Pulse Ox 97.5 F L 77 20 136/95 H 100 06/22/17 16:00 06/22/17 16:00 06/22/17 16:00 06/22/17 16:00 06/22/17 16:00 Intake and Output: 06/22/17 06/22/17 06:59 18:59 Intake Total 1500 1280 Balance 1500 1280 - Medications Medications: Current Medications Al Hydrox/Mg Hydrox/Simethicone (Maalox Plus 30 Ml) 30 ml PO Q8 PRN PRN Reason: Indigestion / Heartburn Last Admin: 06/22/17 09:58 Dose: 30 ml Chlordiazepoxide (Librium) 25 mg PO Q8H [facility] PRN Reason: Taper Stop: 06/26/17 11:59 Last Admin: 06/22/17 12:29 Dose: 25 mg Chlordiazepoxide (Librium) 25 mg PO Q4H PRN PRN Reason: Alcohol Withdrawal Clonidine HCl (Catapres) 0.1 mg PO Q6H [facility] Last Admin: 06/22/17 17:20 Dose: Not Given Heparin Sodium (Porcine) (Heparin) 5,000 units SC Q12 [facility] Last Admin: 06/22/17 09:48 Dose: 5,000 units Multivitamins/Vitamin C 10 ml/Thiamine HCl 100 mg/ Folic Acid 1 mg/ Sodium Chloride 1,011.2 mls @ 100 mls/hr IV Q24H [facility] Last Admin: 06/22/17 17:34 Dose: 100 mls/hr Sodium Chloride (Sodium Chloride 0.9%) 1,000 mls @ 100 mls/hr IV .Q10H [facility] Lorazepam (Ativan) 1 mg IVP Q6H PRN PRN Reason: Anxiety Last Admin: 06/22/17 17:20 Dose: 1 mg Metformin HCl (Glucophage) 1,000 mg PO BID [facility] Last Admin: 06/22/17 17:20 Dose: 1,000 mg Nicotine (Nicoderm Cq) 1 patch TD DAILY [facility] Last Admin: 06/22/17 09:46 Dose: 1 patch Pantoprazole Sodium (Protonix Ec Tab) 40 mg PO DAILY [facility] Last Admin: 06/22/17 09:47 Dose: 40 mg Pneumococcal Polyvalent Vaccine (Pneumovax 23 Vaccine) 0.5 ml IM .ONCE ONE Stop: 06/23/17 10:01 Potassium Chloride (K-Dur 20 Meq Er Tab) 40 meq PO DAILY [facility] Last Admin: 06/22/17 09:47 Dose: 40 meq Trazodone HCl (Desyrel) 100 mg PO HS [facility] Last Admin: 06/21/17 21:23 Dose: 100 mg - Labs Labs: 06/22/17 08:26 06/22/17 08:26 - Constitutional Appears: Well - Head Exam Head Exam: ATRAUMATIC, NORMAL INSPECTION, NORMOCEPHALIC - Eye Exam Eye Exam: EOMI, Normal appearance, PERRL Pupil Exam: NORMAL ACCOMODATION, PERRL - ENT Exam ENT Exam: Mucous Membranes Moist, Normal Exam - Neck Exam Neck Exam: Full ROM, Normal Inspection. absent: Lymphadenopathy - Respiratory Exam Respiratory Exam: Decreased Breath Sounds - Cardiovascular Exam Cardiovascular Exam: REGULAR RHYTHM, +S1, +S2 - GI/Abdominal Exam GI & Abdominal Exam: Soft, Diminished Bowel Sounds - Rectal Exam Rectal Exam: Deferred
[2017-06-22] MEDS: (Novolog) Insulin Aspart, Recombinant 100 u/ml 10 ml vial SC SCH (22:41)
[2017-06-23] MEDS: Sodium Chloride 0.9% 1,000 ML IV SCH ×4 (04:21→23:12)
[2017-06-23] MEDS: (Novolog) Insulin Aspart, Recombinant 100 u/ml 10 ml vial SC SCH ×4 (08:30→21:45)
[2017-06-23] MEDS: Pantoprazole 40 mg EC Tab PO SCH (09:33)
[2017-06-23] MEDS: Potassium Chloride 20 mEq ER Tab PO SCH (09:33)
[2017-06-23] MEDS: Alum-Mag Hydrox-Simethicone Susp (30 mL) PO PRN (09:50)
[2017-06-23] MEDS ORDERED: Influenza Vaccine 60 mcg/0.5 mL SYR (4YR UP) IM ONE (10:00)
[2017-06-23] MEDS ORDERED: Pneumococcal 23-Valent Vaccine IM ONE (10:00)
[2017-06-23 11:38] LABS: BASO # 0.1 K/uL (0.0-0.2); BASO % 1.4 % (0.0-2.0); EOS # 0.1 K/uL (0.0-0.7); EOS % 2.5 % (0.0-4.0); HEMOGLOBIN 13.3 g/dL (12.0-18.0); LYMPH # 1.7 K/uL (1.0-4.3); LYMPH % 37.3 % (20.0-40.0); MEAN CELL VOLUME 92.2 fL (80.0-94.0); MEAN CORPUSCULAR HEMOGLOBIN 31.4 pg (27.0-31.0); MEAN CORPUSCULAR HGB CONC 34.1 g/dL (33.0-37.0); MEAN PLATELET VOLUME 8.4 fL (7.2-11.7); MONO # 0.3 K/uL (0.0-0.8); NEUT # 2.4 K/uL (1.8-7.0); NEUT % 52.8 % (50.0-75.0); RBC 4.24 Mil/uL (4.40-5.90); RED CELL DISTRIBUTION WIDTH 15.7 % (11.5-14.5); WHITE BLOOD COUNT 4.6 K/uL (4.8-10.8)
[2017-06-23 12:27] LABS: ALB/GLOB RATIO 1.2 (1.0-2.1); ALBUMIN 3.8 g/dL (3.5-5.0); ALT/SGPT 52 U/L (21-72); AST/SGOT 51 U/L (17-59); BLOOD UREA NITROGEN 10 mg/dL (9-20); CALCIUM 9.1 mg/dl (8.6-10.4); GFR AFRICAN-AMERICAN > 60; GFR NON-AFRICAN AMERICAN > 60
--- NOTE | 2017-06-23 13:44 | CP.PCM.PN ---
Subjective - Date & Time of Evaluation Date of Evaluation: 06/23/17 Time of Evaluation: 08:40 - Subjective Subjective: clinically same Objective - Vital Signs/Intake and Output Vital Signs (last 24 hours): Temp Pulse Resp BP Pulse Ox 97.9 F 79 20 119/80 98 06/23/17 08:29 06/23/17 08:29 06/23/17 08:29 06/23/17 08:29 06/23/17 08:29 Intake and Output: 06/23/17 06/23/17 06:59 18:59 Intake Total 1160 Balance 1160 - Medications Medications: Current Medications Al Hydrox/Mg Hydrox/Simethicone (Maalox Plus 30 Ml) 30 ml PO Q8 PRN PRN Reason: Indigestion / Heartburn Last Admin: 06/23/17 09:50 Dose: 30 ml Chlordiazepoxide (Librium) 25 mg PO Q8H [facility] PRN Reason: Taper Stop: 06/26/17 11:59 Last Admin: 06/23/17 12:29 Dose: 25 mg Chlordiazepoxide (Librium) 25 mg PO Q4H PRN PRN Reason: Alcohol Withdrawal Clonidine HCl (Catapres) 0.1 mg PO Q6H [facility] Last Admin: 06/23/17 08:43 Dose: Not Given Heparin Sodium (Porcine) (Heparin) 5,000 units SC Q12 [facility] Last Admin: 06/23/17 09:36 Dose: 5,000 units Multivitamins/Vitamin C 10 ml/Thiamine HCl 100 mg/ Folic Acid 1 mg/ Sodium Chloride 1,011.2 mls @ 100 mls/hr IV Q24H [facility] Last Admin: 06/22/17 17:34 Dose: 100 mls/hr Sodium Chloride (Sodium Chloride 0.9%) 1,000 mls @ 100 mls/hr IV .Q10H [facility] Last Admin: 06/23/17 11:30 Dose: Not Given Insulin Aspart (Novolog) 0 unit SC ACHS [facility] PRN Reason: Protocol Last Admin: 06/23/17 12:29 Dose: 1 unit Lorazepam (Ativan) 1 mg IVP Q6H PRN PRN Reason: Anxiety Last Admin: 06/23/17 09:32 Dose: 1 mg Metformin HCl (Glucophage) 1,000 mg PO BID [facility] Last Admin: 06/23/17 09:33 Dose: 1,000 mg Nicotine (Nicoderm Cq) 1 patch TD DAILY [facility] Last Admin: 06/23/17 09:34 Dose: 1 patch Pantoprazole Sodium (Protonix Ec Tab) 40 mg PO DAILY [facility] Last Admin: 06/23/17 09:33 Dose: 40 mg Potassium Chloride (K-Dur 20 Meq Er Tab) 40 meq PO DAILY [facility] Last Admin: 06/23/17 09:33 Dose: 40 meq Trazodone HCl (Desyrel) 100 mg PO HS [facility] Last Admin: 06/22/17 21:19 Dose: 100 mg - Labs Labs: 06/23/17 11:28 06/23/17 11:28 - Constitutional Appears: Well - Head Exam Head Exam: ATRAUMATIC, NORMAL INSPECTION, NORMOCEPHALIC - Eye Exam Eye Exam: EOMI, Normal appearance, PERRL Pupil Exam: NORMAL ACCOMODATION, PERRL - ENT Exam ENT Exam: Mucous Membranes Moist, Normal Exam - Neck Exam Neck Exam: Full ROM, Normal Inspection. absent: Lymphadenopathy - Respiratory Exam Respiratory Exam: Decreased Breath Sounds - Cardiovascular Exam Cardiovascular Exam: +S1 - GI/Abdominal Exam GI & Abdominal Exam: Soft, Diminished Bowel Sounds - Rectal Exam Rectal Exam: Deferred
[2017-06-23] MEDS: Multivitamin (MVI) 10 ML, Thiamine 100 MG, Folic Acid 1 MG in Sodium Chloride 0.9% 1,00... IV SCH (18:05)
[2017-06-24] MEDS: Sodium Chloride 0.9% 1,000 ML IV SCH ×3 (05:53→17:27)
[2017-06-24] MEDS: (Novolog) Insulin Aspart, Recombinant 100 u/ml 10 ml vial SC SCH ×4 (07:58→21:28)
[2017-06-24] MEDS: Potassium Chloride 20 mEq ER Tab PO SCH (09:59)
[2017-06-24] MEDS: Pantoprazole 40 mg EC Tab PO SCH (10:02)
--- NOTE | 2017-06-24 16:58 | CP.PCM.PN ---
Subjective - Date & Time of Evaluation Date of Evaluation: 06/24/17 Time of Evaluation: 08:20 - Subjective Subjective: clinically same Objective - Vital Signs/Intake and Output Vital Signs (last 24 hours): Temp Pulse Resp BP Pulse Ox 97.6 F 81 20 134/88 100 06/24/17 16:00 06/24/17 16:00 06/24/17 16:00 06/24/17 16:00 06/24/17 16:00 Intake and Output: 06/24/17 06/24/17 06:59 18:59 Intake Total 1840 400 Balance 1840 400 - Medications Medications: Current Medications Al Hydrox/Mg Hydrox/Simethicone (Maalox Plus 30 Ml) 30 ml PO Q8 PRN PRN Reason: Indigestion / Heartburn Last Admin: 06/23/17 09:50 Dose: 30 ml Chlordiazepoxide (Librium) 25 mg PO Q12H [facility] PRN Reason: Taper Stop: 06/26/17 11:59 Last Admin: 06/24/17 12:04 Dose: 25 mg Chlordiazepoxide (Librium) 25 mg PO Q4H PRN PRN Reason: Alcohol Withdrawal Clonidine HCl (Catapres) 0.1 mg PO Q6H [facility] Last Admin: 06/24/17 16:41 Dose: 0.1 mg Sodium Chloride (Sodium Chloride 0.9%) 1,000 mls @ 100 mls/hr IV .Q10H [facility] Last Admin: 06/24/17 07:59 Dose: Not Given Insulin Aspart (Novolog) 0 unit SC ACHS [facility] PRN Reason: Protocol Last Admin: 06/24/17 12:05 Dose: 3 unit Ketorolac Tromethamine (Toradol) 15 mg IVP Q6 PRN PRN Reason: Pain, severe (8-10) Last Admin: 06/24/17 16:41 Dose: 15 mg Lorazepam (Ativan) 1 mg IVP Q6H PRN PRN Reason: Anxiety Last Admin: 06/24/17 10:00 Dose: 1 mg Metformin HCl (Glucophage) 1,000 mg PO BID [facility] Last Admin: 06/24/17 10:01 Dose: 1,000 mg Nicotine (Nicoderm Cq) 1 patch TD DAILY [facility] Last Admin: 06/24/17 10:03 Dose: 1 patch Pantoprazole Sodium (Protonix Ec Tab) 40 mg PO DAILY [facility] Last Admin: 06/24/17 10:02 Dose: 40 mg Potassium Chloride (K-Dur 20 Meq Er Tab) 40 meq PO DAILY [facility] Last Admin: 06/24/17 09:59 Dose: 40 meq Trazodone HCl (Desyrel) 100 mg PO HS [facility] Last Admin: 06/23/17 21:43 Dose: 100 mg - Labs Labs: 06/23/17 11:28 06/23/17 11:28 - Constitutional Appears: Well - Head Exam Head Exam: ATRAUMATIC, NORMAL INSPECTION, NORMOCEPHALIC - Eye Exam Eye Exam: EOMI, Normal appearance, PERRL Pupil Exam: NORMAL ACCOMODATION, PERRL - ENT Exam ENT Exam: Mucous Membranes Moist, Normal Exam - Neck Exam Neck Exam: Full ROM, Normal Inspection. absent: Lymphadenopathy - Respiratory Exam Respiratory Exam: Decreased Breath Sounds - Cardiovascular Exam Cardiovascular Exam: REGULAR RHYTHM ( nb.), +S1, +S2 - GI/Abdominal Exam GI & Abdominal Exam: Soft, Diminished Bowel Sounds - Rectal Exam Rectal Exam: Deferred
[2017-06-24] MEDS: HYDROmorphone 1 mg/ml ISec IVP PRN (20:10)
[2017-06-25] MEDS: Sodium Chloride 0.9% 1,000 ML IV SCH ×2 (02:38→14:29)
[2017-06-25] MEDS: HYDROmorphone 1 mg/ml ISec IVP PRN ×2 (08:00→16:27)
[2017-06-25] MEDS: (Novolog) Insulin Aspart, Recombinant 100 u/ml 10 ml vial SC SCH ×4 (08:01→21:24)
[2017-06-25 08:10] LABS: ALB/GLOB RATIO 1.2 (1.0-2.1); ALBUMIN 3.5 g/dL (3.5-5.0); ALT/SGPT 60 U/L (21-72); AST/SGOT 53 U/L (17-59); BLOOD UREA NITROGEN 15 mg/dL (9-20); CALCIUM 8.3 mg/dl (8.6-10.4); GFR AFRICAN-AMERICAN > 60; GFR NON-AFRICAN AMERICAN > 60
[2017-06-25] MEDS: Potassium Chloride 20 mEq ER Tab PO SCH (10:06)
[2017-06-25] MEDS: Pantoprazole 40 mg EC Tab PO SCH (10:07)
--- NOTE | 2017-06-25 10:07 | CP.PCM.PN ---
Subjective - Date & Time of Evaluation Date of Evaluation: 06/25/17 Time of Evaluation: 10:00 - Subjective Subjective: Progress note. ATTENDING: BAMBI BOWMAN MD Pt seen and examined at bedside. this am. No acute distress. No events overnight. Pt is complaining of some aches and pains in his back. No fevers, chills, vomiting, diarrhea. Objective - Vital Signs/Intake and Output Vital Signs (last 24 hours): Temp Pulse Resp BP Pulse Ox 97.6 F 93 H 20 121/85 99 06/25/17 08:00 06/25/17 08:00 06/25/17 08:00 06/25/17 08:00 06/25/17 08:00 Intake and Output: 06/25/17 06/25/17 06:59 18:59 Intake Total 1250 Balance 1250 - Medications Medications: Current Medications Al Hydrox/Mg Hydrox/Simethicone (Maalox Plus 30 Ml) 30 ml PO Q8 PRN PRN Reason: Indigestion / Heartburn Last Admin: 06/23/17 09:50 Dose: 30 ml Chlordiazepoxide (Librium) 25 mg PO Q12H [facility] PRN Reason: Taper Stop: 06/26/17 11:59 Last Admin: 06/25/17 00:09 Dose: 25 mg Chlordiazepoxide (Librium) 25 mg PO Q4H PRN PRN Reason: Alcohol Withdrawal Clonidine HCl (Catapres) 0.1 mg PO Q6H [facility] Last Admin: 06/25/17 05:01 Dose: 0.1 mg Hydromorphone HCl (Dilaudid) 1 mg IVP Q8 PRN PRN Reason: Pain, severe (8-10) Last Admin: 06/25/17 08:00 Dose: 1 mg Sodium Chloride (Sodium Chloride 0.9%) 1,000 mls @ 100 mls/hr IV .Q10H [facility] Last Admin: 06/25/17 02:38 Dose: 100 mls/hr Insulin Aspart (Novolog) 0 unit SC ACHS [facility] PRN Reason: Protocol Last Admin: 06/25/17 08:01 Dose: 2 unit Ketorolac Tromethamine (Toradol) 15 mg IVP Q6 PRN PRN Reason: Pain, severe (8-10) Last Admin: 06/24/17 16:41 Dose: 15 mg Lorazepam (Ativan) 1 mg IVP Q6H PRN PRN Reason: Anxiety Last Admin: 06/25/17 00:19 Dose: 1 mg Metformin HCl (Glucophage) 1,000 mg PO BID [facility] Last Admin: 06/24/17 17:26 Dose: 1,000 mg Nicotine (Nicoderm Cq) 1 patch TD DAILY [facility] Last Admin: 06/24/17 10:03 Dose: 1 patch Pantoprazole Sodium (Protonix Ec Tab) 40 mg PO DAILY [facility] Last Admin: 06/24/17 10:02 Dose: 40 mg Potassium Chloride (K-Dur 20 Meq Er Tab) 40 meq PO DAILY [facility] Last Admin: 06/24/17 09:59 Dose: 40 meq Trazodone HCl (Desyrel) 100 mg PO HS [facility] Last Admin: 06/24/17 21:25 Dose: 100 mg - Labs Labs: 06/23/17 11:28 06/25/17 07:47 - Constitutional Appears: Non-toxic, No Acute Distress, Unkempt - Head Exam Head Exam: ATRAUMATIC, NORMAL INSPECTION, NORMOCEPHALIC - Eye Exam Eye Exam: EOMI - ENT Exam ENT Exam: Mucous Membranes Moist - Neck Exam Neck Exam: Full ROM, Normal Inspection - Respiratory Exam Respiratory Exam: NORMAL BREATHING PATTERN. absent: Respiratory Distress - Cardiovascular Exam Cardiovascular Exam: REGULAR RHYTHM, +S1, +S2 - GI/Abdominal Exam GI & Abdominal Exam: Soft, Normal Bowel Sounds. absent: Tenderness - Extremities Exam Extremities Exam: Full ROM, Normal Inspection - Neurological Exam Neurological Exam: Alert, Awake, Oriented x3 - Psychiatric Exam Psychiatric exam: Normal Affect, Normal Mood - Skin Skin Exam: Dry, Intact, Normal Color, Warm Assessment and Plan - Assessment and Plan (Free Text) Assessment: This is a 41 yo male with 1. Alcohol abuse -librium 25 q4 PRN -maalox -librium 25 q 12 [facility] -clonidine .1 q 6 [facility] -fall precautions -seizure precautions -CIWA protocol -dilaudid for pain IV PRN -ativan 1 mg IV q 6 hrs PRN -IV normal saline -psych consult. recs appreciated. 2. Leukopenia/thrombocytopenia -likely secondary to alcohol abuse -continue to monitor 3. hx of DM -continue metformin BID -ISS 4. hx of tobacco abuse -continue nicotine patch 5. hx of insomnia -continue trazodone 100 mg PO HS 6. hyponatremia -continue to monitor -may be secondary to hyperglycemia 6. GI/DVT ppx -protonix -continue SCDs. discussed with DR BOWMAN.
[2017-06-25 11:18] LABS: BASO % 0.6 % (0.0-2.0); EOS # 0.1 K/uL (0.0-0.7); HEMOGLOBIN 12.5 g/dL (12.0-18.0); LYMPH # 1.8 K/uL (1.0-4.3); LYMPH % 34.4 % (20.0-40.0); MEAN CELL VOLUME 91.4 fL (80.0-94.0); MEAN CORPUSCULAR HEMOGLOBIN 31.7 pg (27.0-31.0); MEAN CORPUSCULAR HGB CONC 34.7 g/dL (33.0-37.0); MONO # 0.6 K/uL (0.0-0.8); MONO % 10.5 % (0.0-10.0); NEUT # 2.8 K/uL (1.8-7.0); NEUT % 52.5 % (50.0-75.0); RBC 3.95 Mil/uL (4.40-5.90); WHITE BLOOD COUNT 5.3 K/uL (4.8-10.8)
[2017-06-25 12:00] LABS: ALB/GLOB RATIO 1.3 (1.0-2.1); ALBUMIN 3.6 g/dL (3.5-5.0); ALT/SGPT 65 U/L (21-72); AST/SGOT 61 U/L (17-59); BLOOD UREA NITROGEN 17 mg/dL (9-20); CALCIUM 8.6 mg/dl (8.6-10.4); GFR AFRICAN-AMERICAN > 60; GFR NON-AFRICAN AMERICAN > 60
--- NOTE | 2017-06-25 16:19 | CP.PCM.PN ---
Subjective - Date & Time of Evaluation Date of Evaluation: 06/25/17 Time of Evaluation: 07:20 - Subjective Subjective: clinically same Objective - Vital Signs/Intake and Output Vital Signs (last 24 hours): Temp Pulse Resp BP Pulse Ox 97.6 F 77 20 113/74 99 06/25/17 16:00 06/25/17 16:00 06/25/17 16:00 06/25/17 16:00 06/25/17 16:00 Intake and Output: 06/25/17 06/25/17 06:59 18:59 Intake Total 1250 1250 Balance 1250 1250 - Medications Medications: Current Medications Al Hydrox/Mg Hydrox/Simethicone (Maalox Plus 30 Ml) 30 ml PO Q8 PRN PRN Reason: Indigestion / Heartburn Last Admin: 06/23/17 09:50 Dose: 30 ml Chlordiazepoxide (Librium) 25 mg PO Q24H [facility] PRN Reason: Taper Stop: 06/26/17 11:59 Last Admin: 06/25/17 11:47 Dose: 25 mg Chlordiazepoxide (Librium) 25 mg PO Q4H PRN PRN Reason: Alcohol Withdrawal Hydromorphone HCl (Dilaudid) 1 mg IVP Q8 PRN PRN Reason: Pain, severe (8-10) Last Admin: 06/25/17 08:00 Dose: 1 mg Sodium Chloride (Sodium Chloride 0.9%) 1,000 mls @ 100 mls/hr IV .Q10H [facility] Last Admin: 06/25/17 14:29 Dose: Not Given Insulin Aspart (Novolog) 0 unit SC ACHS [facility] PRN Reason: Protocol Last Admin: 06/25/17 11:47 Dose: 3 unit Ketorolac Tromethamine (Toradol) 15 mg IVP Q6 PRN PRN Reason: Pain, severe (8-10) Last Admin: 06/24/17 16:41 Dose: 15 mg Lorazepam (Ativan) 1 mg IVP Q6H PRN PRN Reason: Anxiety Last Admin: 06/25/17 11:00 Dose: 1 mg Metformin HCl (Glucophage) 1,000 mg PO BID [facility] Last Admin: 06/25/17 10:07 Dose: 1,000 mg Nicotine (Nicoderm Cq) 1 patch TD DAILY [facility] Last Admin: 06/25/17 10:08 Dose: 1 patch Pantoprazole Sodium (Protonix Ec Tab) 40 mg PO DAILY [facility] Last Admin: 06/25/17 10:07 Dose: 40 mg Potassium Chloride (K-Dur 20 Meq Er Tab) 40 meq PO DAILY [facility] Last Admin: 06/25/17 10:06 Dose: 40 meq Trazodone HCl (Desyrel) 100 mg PO HS [facility] Last Admin: 06/24/17 21:25 Dose: 100 mg - Labs Labs: 06/25/17 11:05 06/25/17 11:05 - Constitutional Appears: Well - Head Exam Head Exam: ATRAUMATIC, NORMAL INSPECTION, NORMOCEPHALIC - Eye Exam Eye Exam: EOMI, Normal appearance, PERRL Pupil Exam: NORMAL ACCOMODATION, PERRL - ENT Exam ENT Exam: Mucous Membranes Moist, Normal Exam - Neck Exam Neck Exam: Full ROM, Normal Inspection. absent: Lymphadenopathy - Respiratory Exam Respiratory Exam: Decreased Breath Sounds - Cardiovascular Exam Cardiovascular Exam: REGULAR RHYTHM, +S1, +S2 - GI/Abdominal Exam GI & Abdominal Exam: Soft, Diminished Bowel Sounds - Rectal Exam Rectal Exam: Deferred
[2017-06-26] MEDS: HYDROmorphone 1 mg/ml ISec IVP PRN ×2 (00:14→08:43)
[2017-06-26 02:19] VITALS: O2SAT 98
[2017-06-26 07:37] LABS: BASO # 0.1 K/uL (0.0-0.2); BASO % 0.9 % (0.0-2.0); EOS # 0.1 K/uL (0.0-0.7); EOS % 2.1 % (0.0-4.0); LYMPH # 2.2 K/uL (1.0-4.3); LYMPH % 36.7 % (20.0-40.0); MEAN CELL VOLUME 91.9 fL (80.0-94.0); MEAN CORPUSCULAR HEMOGLOBIN 32.1 pg (27.0-31.0); MEAN CORPUSCULAR HGB CONC 34.9 g/dL (33.0-37.0); MEAN PLATELET VOLUME 7.6 fL (7.2-11.7); MONO # 0.9 K/uL (0.0-0.8); MONO % 14.3 % (0.0-10.0); NEUT # 2.8 K/uL (1.8-7.0); NRBC % 0.1 % (0.0-2.0); RBC 4.06 Mil/uL (4.40-5.90); RED CELL DISTRIBUTION WIDTH 15.8 % (11.5-14.5)
[2017-06-26 07:43] LABS: ALB/GLOB RATIO 1.3 (1.0-2.1); ALBUMIN 3.6 g/dL (3.5-5.0); ALT/SGPT 69 U/L (21-72); AST/SGOT 52 U/L (17-59); BLOOD UREA NITROGEN 14 mg/dL (9-20); CALCIUM 9.3 mg/dl (8.6-10.4); GFR AFRICAN-AMERICAN > 60; GFR NON-AFRICAN AMERICAN > 60
[2017-06-26] MEDS: (Novolog) Insulin Aspart, Recombinant 100 u/ml 10 ml vial SC SCH ×2 (08:42→12:31)
[2017-06-26 09:15] VITALS: BP 109/74; PULSE 89; TEMP 98
[2017-06-26] MEDS: Pantoprazole 40 mg EC Tab PO SCH (09:34)
[2017-06-26] MEDS: Potassium Chloride 20 mEq ER Tab PO SCH (09:34)
--- NOTE | 2017-06-26 11:08 | CP.PCM.PN ---
Subjective - Date & Time of Evaluation Date of Evaluation: 06/26/17 Time of Evaluation: 11:00 - Subjective Subjective: Progress note BAMBI BOWMAN: Attending Pt seen and examined at bedside. No acute distress. No events overnight. No fevers, chills, vomiting, diarrhea, cp, sob. Objective - Vital Signs/Intake and Output Vital Signs (last 24 hours): Temp Pulse Resp BP Pulse Ox 98.0 F 89 20 109/74 98 06/26/17 08:00 06/26/17 08:00 06/26/17 08:00 06/26/17 08:00 06/26/17 08:00 Intake and Output: 06/26/17 06/26/17 06:59 18:59 Intake Total 2360 Balance 2360 - Medications Medications: Current Medications Al Hydrox/Mg Hydrox/Simethicone (Maalox Plus 30 Ml) 30 ml PO Q8 PRN PRN Reason: Indigestion / Heartburn Last Admin: 06/23/17 09:50 Dose: 30 ml Hydromorphone HCl (Dilaudid) 1 mg IVP Q8 PRN PRN Reason: Pain, severe (8-10) Last Admin: 06/26/17 08:43 Dose: 1 mg Insulin Aspart (Novolog) 0 unit SC ACHS MARY ALICE PRN Reason: Protocol Last Admin: 06/26/17 08:42 Dose: 2 unit Ketorolac Tromethamine (Toradol) 15 mg IVP Q6 PRN PRN Reason: Pain, severe (8-10) Last Admin: 06/24/17 16:41 Dose: 15 mg Lorazepam (Ativan) 1 mg IVP Q6H PRN PRN Reason: Anxiety Last Admin: 06/25/17 11:00 Dose: 1 mg Metformin HCl (Glucophage) 1,000 mg PO BID [facility] Last Admin: 06/26/17 09:33 Dose: 1,000 mg Nicotine (Nicoderm Cq) 1 patch TD DAILY [facility] Last Admin: 06/26/17 09:34 Dose: 1 patch Pantoprazole Sodium (Protonix Ec Tab) 40 mg PO DAILY [facility] Last Admin: 06/26/17 09:34 Dose: 40 mg Potassium Chloride (K-Dur 20 Meq Er Tab) 40 meq PO DAILY [facility] Last Admin: 06/26/17 09:34 Dose: 40 meq Trazodone HCl (Desyrel) 100 mg PO HS MARY ALICE Last Admin: 06/25/17 21:24 Dose: 100 mg - Labs Labs: 06/26/17 07:21 06/26/17 07:21 - Constitutional Appears: Non-toxic, No Acute Distress, Unkempt - Head Exam Head Exam: ATRAUMATIC, NORMAL INSPECTION, NORMOCEPHALIC - Eye Exam Eye Exam: EOMI - ENT Exam ENT Exam: Mucous Membranes Moist - Respiratory Exam Respiratory Exam: NORMAL BREATHING PATTERN. absent: Respiratory Distress - Cardiovascular Exam Cardiovascular Exam: +S1, +S2 - GI/Abdominal Exam GI & Abdominal Exam: Soft, Normal Bowel Sounds. absent: Tenderness - Extremities Exam Extremities Exam: Full ROM, Normal Inspection - Neurological Exam Neurological Exam: Alert, Awake, Oriented x3 - Psychiatric Exam Psychiatric exam: Normal Affect, Normal Mood - Skin Skin Exam: Dry, Intact, Normal Color, Warm Assessment and Plan - Assessment and Plan (Free Text) Assessment: This is a 41 yo male with 1. Alcohol abuse -librium 25 q4 PRN -maalox -librium 25 q 12 MARY ALICE -clonidine .1 q 6 marya lice -fall precautions -seizure precautions -CIWA protocol -dilaudid for pain IV PRN -ativan 1 mg IV q 6 hrs PRN -IV normal saline -psych consult. recs appreciated. 2. Leukopenia/thrombocytopenia -likely secondary to alcohol abuse -continue to monitor 3. hx of DM -continue metformin BID -ISS 4. hx of tobacco abuse -continue nicotine patch 5. hx of insomnia -continue trazodone 100 mg PO HS 6. hyponatremia -continue to monitor -may be secondary to hyperglycemia 6. GI/DVT ppx -protonix -continue SCDs. discussed with DR BOWMAN.
--- NOTE | 2017-06-26 16:28 | CP.PCM.PN ---
Subjective - Date & Time of Evaluation Date of Evaluation: 06/26/17 Time of Evaluation: 16:21 - Subjective Subjective: PT SEEN AND EXAMINED TODAY, DENIES ANY PAIN, RESPIRATION EASY AND UNLABORED. NAD Objective - Vital Signs/Intake and Output Vital Signs (last 24 hours): Temp Pulse Resp BP Pulse Ox 98.0 F 89 20 109/74 98 06/26/17 08:00 06/26/17 08:00 06/26/17 08:00 06/26/17 08:00 06/26/17 08:00 Intake and Output: 06/26/17 06/26/17 06:59 18:59 Intake Total 2360 Balance 2360 - Labs Labs: 06/26/17 07:21 06/26/17 07:21 Assessment and Plan - Assessment and Plan (Free Text) Plan: PATIENT IS A 41 YEAR OLD MALE WITH PMHX DM II ADMITTED FOR HYPONATREMIA, HYPERGLYCEMIA, ALCOHOL DEPENDENCE, DETOX PT SEEN BY DR LOPEZ AND CLEARED FOR DISCHARGE PT GIVEN RX FOR METFORMIN AND TRAZADON PT CLEARED FOR DISCHARGE TO [facility]
== END 2017-06-26 12:20 | disposition home or self-care (01) | DRG 750 ==
LOC: C.ER 13:25 → C.9E 15:43 → C.3T 15:43
PROVIDERS: ADMIT Internal Medicine Nephrology; ATTEND Internal Medicine Nephrology
PROC: HZ2ZZZZ Detoxification Services for Substance Abuse Treatment (ICD-10-PCS; principal; 2017-06-21)
PROC: HZ59ZZZ Individual Psychotherapy for Substance Abuse Treatment, Supportive (ICD-10-PCS; 2017-06-21)
PROC: HZ90ZZZ Pharmacotherapy for Substance Abuse Treatment, Nicotine Replacement (ICD-10-PCS; 2017-06-21)
DX: F10.230 Alcohol dependence with withdrawal, uncomplicated (principal); E87.1 Hypo-osmolality and hyponatremia; D69.59 Other secondary thrombocytopenia; E11.65 Type 2 diabetes mellitus with hyperglycemia; D72.819 Decreased white blood cell count, unspecified; F17.210 Nicotine dependence, cigarettes, uncomplicated

== ENCOUNTER 2018-04-03 13:59 | Inpatient (IN) | payer MEDICAID, OTHER ==
[2018-04-03 13:59] VITALS: BMI 23.6
[2018-04-03] MEDS ORDERED: Multivitamin (MVI) 10 ML, Thiamine 100 MG, Folic Acid 1 MG in Sodium Chloride 0.9% 1,00... IV ONE (14:32)
[2018-04-03] MEDS ORDERED: Sodium Chloride 0.9% 1,000 ML IV ONE ×2 (14:32→15:20)
[2018-04-03 14:48] LABS: BASO # 0.1 K/uL (0.0-0.2); BASO % 0.5 % (0.0-2.0); HEMOGLOBIN 15.2 g/dL (12.0-18.0); LYMPH # 1.5 K/uL (1.0-4.3); LYMPH % 12.4 % (20.0-40.0); MEAN CORPUSCULAR HEMOGLOBIN 31.2 pg (27.0-31.0); MEAN CORPUSCULAR HGB CONC 33.9 g/dL (33.0-37.0); MEAN PLATELET VOLUME 9.1 fL (7.2-11.7); MONO # 0.5 K/uL (0.0-0.8); MONO % 4.4 % (0.0-10.0); NEUT # 10.2 K/uL (1.8-7.0); NEUT % 82.7 % (50.0-75.0); NRBC % 0.1 % (0.0-2.0); RBC 4.88 Mil/uL (4.40-5.90)
[2018-04-03 14:50] LABS: PROTHROMBIN TIME 10.8 SECONDS (9.7-12.2); WHITE BLOOD COUNT 12.3 K/uL (4.8-10.8)
--- NOTE | 2018-04-03 14:52 | C.PDOC ---
History Of Present Illness 42 year old male, whose past medical history includes diabetes and opiate and alcohol abuse ( as per previous records) presents to the ED for evaluation. Patient initially presented to the ED with complaint of vomiting for two days. While in the triage room, patient had a witnessed seizure. Additional information limited secondary to patient's clinical conditions. Time Seen by Provider: 04/03/18 14:06 Chief Complaint (Nursing): Seizure History Per: Patient History/Exam Limitations: clinical condition Recent Seizure Activity Began: Just Before Arrival Number Of Seizures: One Additional History Per: Patient Past Medical History Reviewed: Historical Data, Nursing Documentation, Vital Signs Vital Signs: Last Vital Signs Temp Pulse 123 H 04/03/18 14:13 Resp 25 H 04/03/18 14:13 BP 137/86 04/03/18 14:13 Pulse Ox - Medical History PMH: Anxiety, Diabetes (metformin), Gastritis Denies: Depression, Hepatitis, HIV, HTN, Chronic Kidney Disease, Seizures, Sexually Transmitted Disease Surgical History: No Surg Hx - [facility] Procedures CLOSURE SKIN & SUBCUTANEOUS NEC (06/04/03) DETOXIFICATION SERVICES FOR SUBSTANCE ABUSE TREATMENT (06/20/17) ESOPHAGOGASTRODUODENOSCOPY [EGD] W/CLOSED BIOPSY (11/12/14) INDIV PSYCHOTHERAPY FOR SUBSTANCE ABUSE TREATMENT, SUPPORT (06/20/17) INFLUENZA VACCINATION (02/05/13) LARYGNOSCOPY AND OTH TRACHEOSCOPY (05/02/14) PHARMACOTHERAPY FOR SUBSTANCE ABUSE, NICOTINE REPLACE (06/20/17) Family History: States: Unknown Family Hx - Social History Hx Tobacco Use: Yes Hx Alcohol Use: Yes Hx Substance Use: Yes - Immunization History Hx Tetanus Toxoid Vaccination: No Hx Influenza Vaccination: No Hx Pneumococcal Vaccination: No Review Of Systems Review Of Systems: ROS cannot be obtained secondary to pt's inabilty to answer questions. Physical Exam - Physical Exam Appears: Non-toxic, Unkempt, Confused, Chronically Ill, Other (agitated) Skin: Normal Color, Warm, Dry, Other (old, healing laceration to dorsal aspect of left hand ) Head: Normacephalic, Laceration (old, healing to right upper forehead ) Eye(s): bilateral: Normal Inspection, PERRL, EOMI Oral Mucosa: Dry Neck: Supple Chest: Symmetrical, No Deformity, No Tenderness Cardiovascular: Rhythm Regular, No Murmur, Other (tachycardia ) Respiratory: Normal Breath Sounds, No Rales, No Rhonchi, No Wheezing Gastrointestinal/Abdominal: Bowel Sounds, Soft Back: No Vertebral Tenderness, No Paraspinal Tenderness Extremity: Normal ROM (moving all extremites x4), Capillary Refill (less than 2 seconds ) Neurological/Psych: Other (awake, alert, confused) ED Course And Treatment - Laboratory Results Result Diagrams: 04/03/18 14:36 04/03/18 19:22 ECG Rhythm: Sinus Tachycardia Interpretation Of ECG: Sinus Tachycardia at rate 119bpm. Normal intervals, normal axis. No ST elevations or depression. Negative for ischemia. Rate From EC O2 Sat by Pulse Oximetry: 100 - Other Rad CXR X-Ray: Viewed By Me, Read By Radiologist Interpretation: Date of service: 04/03/2018. HISTORY: seizure. COMPARISON: Comparison chest 02/10/2017. FINDINGS: LUNGS: No active pulmonary disease. PLEURA: No significant pleural effusion identified, no pneumothorax apparent. CARDIOVASCULAR: No discernible aortic atherosclerotic calcification seen. Normal cardiac size. No pulmonary vascular congestion. OSSEOUS STRUCTURES: No significant abnormalities. VISUALIZED UPPER ABDOMEN: Normal. OTHER FINDINGS: None. IMPRESSION: No active disease. - CT Scan/US CT A/P Other Rad Studies (CT/US): Read By Radiologist, Radiology Report Reviewed CT/US Interpretation: Date of service: 04/03/2018. PROCEDURE: CT Abdomen and Pelvis without intravenous contrast. HISTORY: vomiting, elevated lipase. COMPARISON: None. TECHNIQUE: Axial and reformatted coronal and sagittal CT images of the abdomen and pelvis were obtained without IV or oral contrast administration.. Contrast dose: 0. Radiation dose: Total exam DLP = 414.11 mGy-cm. This CT exam was performed using one or more of the following dose reduction techniques: Automated exposure control, adjustment of the mA and/or kV according to patient size, and/or use of iterative reconstruction technique. FINDINGS: LOWER THORAX: Unremarkable. LIVER: The liver is mildly enlarged demonstrate moderate diffuse low-attenuation suggestive of moderate fibrofatty infiltration. GALLBLADDER AND BILE DUCTS: No evidence of acute cholecystitis or biliary obstruction. PANCREAS: No CT evidence of acute pancreatitis. No evidence of dilated main pancreatic duct. SPLEEN: Unremarkable. ADRENALS: There is 1.3 centimeter nodule at the left adrenal gland. KIDNEYS AND URETERS: No evidence of hydronephrosis or obstructing stone. The kidneys are symmetrical in size and shape. VASCULATURE: Unremarkable. No aortic aneurysm. No aortic atherosclerotic calcification or mural plaque present. BOWEL: Mildly dilated small bowel loops suspicious for mild enteritis. No evidence of high- grade bowel obstruction. APPENDIX: No evidence of appendicitis. PERITONEUM: Unremarkable. No free fluid. No free air. LYMPH NODES: Unremarkable. No enlarged lymph nodes. BLADDER: The urinary bladder is seen at low somewhat low position. Please correlate clinically for cystocele. REPRODUCTIVE: The prostate and seminal vesicles are mildly enlarged. BONES: No acute fracture. OTHER FINDINGS: None. IMPRESSION: Findings suspicious for enteritis. Moderate fatty liver infiltration. No CT evidence of acute cholecystitis or pancreatitis. No evidence of obstructing renal stone. CT Cervical spine Other Rad Studies (CT/US): Read By Radiologist, Radiology Report Reviewed CT/US Interpretation: Date of service: 04/03/2018. PROCEDURE: CT Cervical Spine without contrast. HISTORY: Seizure post fall. COMPARISON: None available. TECHNIQUE: Axial computed tomography images were obtained of the c ervical spine without the use of intravenous contrast. Coronal and sagittal reformatted images were created and reviewed. Radiation dose: Total exam DLP = 374.0 mGy-cm. This CT exam was performed using one or more of the following dose reduction techniques: Automated exposure control, adjustment of the mA and/or kV according to patient size, and/or use of iterative reconstruction technique. FINDINGS: Note that the examination is slightly limited by motion artifact.. VERTEBRAE: No fracture. Normal alignment. No destructive bony lesion. DISCS/SPINAL CANAL/NEURAL FORAMINA: No significant central canal or neural foraminal stenosis. Discs heights are grossly preserved. PARASPINAL SOFT TISSUES: Unremarkable. OTHER FINDINGS: None. IMPRESSION: Slightly limited motion degraded study. No acute fractures.. CT Head Other Rad Studies (CT/US): Read By Radiologist, Radiology Report Reviewed CT/US Interpretation: Date of service: 04/03/2018. PROCEDURE: CT HEAD WITHOUT CONTRAST. HISTORY: s/p fall and seizure. COMPARISON: None available. TECHNIQUE: Axial computed tomography images were obtained through the head/brain without intravenous contrast. Radiation dose: Total exam DLP = 1033.4 mGy-cm. This CT exam was performed using one or more of the following dose reduction techniques: Automated exposure control, adjustment of the mA and/or kV according to patient size, and/or use of iterative reconstruction technique. FINDINGS: HEMORRHAGE: Small region of high density noted within the right parietal cortex (series 4, image 42); in the setting of trauma finding presumed to represent blood unless proven otherwise. Recommend 6 hr follow-up noncontrast head CT. BRAIN: No mass effect or edema. Intracranial a therosclerosis. The samuel-white matter differentiation appears intact. Please note that MRI with diffusion imaging is more sensitive in the detection of acute ischemic event. VENTRICLES: No hydrocephalus. CALVARIUM: Unremarkable. PARANASAL SINUSES: Fluid/mucosal thickening of the left maxillary sinus. Mild mucosal thickening of the right maxillary sinus. MASTOID AIR CELLS: Unremarkable as visualized. No inflammatory changes. OTHER FINDINGS: None. IMPRESSION: Small region of high density noted within the right parietal cortex (series 4, image 42); in the setting of trauma finding presumed to represent blood unless proven otherwise. Recommend 6 hr follow-up noncontrast head CT. F luid/mucosal thickening of the left maxillary sinus; correlate for sinusitis. Mild mucosal thickening of the right maxillary sinus. Findings discussed with Dr. Taylor Deal on 04/03/18 at 5:36 p.m. Medical Decision Making Medical Decision Making: Progress: Bloodwork, urinalysis, CT Cervical Spine, CT Head, and EKG ordered and reviewed. 1529: Case discussed with Dr. 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 Recommends to order saline and KCL at 200cc per hour. Also recommends DKA protocol and accepts the patient for ICU. 1547: Case discussed with Dr. Johann chen, who accepts the patient. 1737 Case discussed with radiologist, Dr. Camarena, who states Head CT results show small region of high density noted within the right parietal cortex. States in the setting of trauma, the finding is presumed to represent blood unless proven otherwise. Recommend 6 hr follow-up noncontrast head CT. [address] Trin[address] Dr. Johann Chen notified. Disposition - Disposition Disposition: HOSPITALIZED Disposition Time: 15:47 Condition: FAIR - Clinical Impression Clinical Impression: Seizure, Dehydration, Vomiting, DKA (diabetic ketoacidoses) - Scribe Statement The provider has reviewed the documentation as recorded by the Scribe (Pat Chen) Provider Attestation: All medical record entries made by the Scribe were at my direction and persona lly dictated by me. I have reviewed the chart and agree that the record accurately reflects my personal performance of the history, physical exam, medical decision making, and the department course for this patient. I have also personally directed, reviewed, and agree with the discharge instructions and disposition.
[2018-04-03 14:54] LABS: URINE BILIRUBIN NEGATIVE (NEGATIVE); URINE BLOOD 2+ (NEGATIVE); URINE CLARITY Clear (Clear); URINE COLOR Yellow (YELLOW); URINE GLUCOSE (UA) 3+ mg/dL (Normal); URINE LEUKOCYTE ESTERASE NEG Leu/uL (Negative); URINE PROTEIN 1+ mg/dL (NEGATIVE); URINE UROBILINOGEN NORMAL mg/dL (0.2-1.0)
[2018-04-03 14:55] LABS: ACETAMINOPHEN < 10.0 ug/mL (10.0-30.0); SALICYLATE < 1.0 mg/dL 1
[2018-04-03 15:14] LABS: ALB/GLOB RATIO 1.9 (1.0-2.1); ALBUMIN 5.5 g/dL (3.5-5.0); ALT/SGPT 76 U/L (21-72); AST/SGOT 158 U/L (17-59); BLOOD UREA NITROGEN 24 mg/dL (9-20); CALCIUM 8.5 mg/dl (8.6-10.4); GFR NON-AFRICAN AMERICAN 45
[2018-04-03] MEDS ORDERED: Glucagon Recombinant 1 mg Inj IM PRN (15:21)
[2018-04-03] MEDS ORDERED: Dextrose 50% SYRINGE Inj (50 ml) IV PRN (15:21)
[2018-04-03 15:28] LABS: BARBITURATES, UR NEGATIVE (NEGATIVE); BENZODIAZEPINES, UR NEGATIVE (NEGATIVE); OPIATES, UR NEGATIVE (NEGATIVE); PHENCYCLIDINE, UR NEGATIVE (NEGATIVE)
[2018-04-03] MEDS ORDERED: Insulin Human Regular 100 UNIT in Sodium Chloride 0.9% 99 ML IV SCH ×3 (15:30→23:30)
[2018-04-03 16:15] LABS: ABG ALLEN TEST POS; ARTERIAL BLOOD GAS HCO3 18.5 mmol/L (21-28); ARTERIAL BLOOD GAS HEMOGLOBIN 14.3 g/dL (11.7-17.4); ARTERIAL BLOOD GAS O2 SAT 93.2 % (95-98); ARTERIAL BLOOD GAS PCO2 24 mm/Hg (35-45); ARTERIAL BLOOD GAS PO2 62 mm/Hg (80-100); ARTERIAL BLOOD GAS TCO2 15.6 mmol/L (22-28)
--- NOTE | 2018-04-03 16:21 | RAD ---
Date of service: 04/03/2018 HISTORY: seizure COMPARISON: Comparison chest 02/10/2017. FINDINGS: LUNGS: No active pulmonary disease. PLEURA: No significant pleural effusion identified, no pneumothorax apparent. CARDIOVASCULAR: No discernible aortic atherosclerotic calcification seen Normal cardiac size. No pulmonary vascular congestion. OSSEOUS STRUCTURES: No significant abnormalities. VISUALIZED UPPER ABDOMEN: Normal. OTHER FINDINGS: None. IMPRESSION: No active disease.
--- NOTE | 2018-04-03 16:55 | PCM.FALL ---
<MiriamandreaHardy stafford - Last Filed: 04/03/18 16:53> Post Fall Progress Note - Post Fall Fall Date: 04/03/18 Fall Time: 14:00 Description of Fall: in Triage of ED, pt transfered to bed then taken into ED - Post Fall Exam Vital Sign: Temp Pulse Resp BP Pulse Ox 99.3 F 119 H 20 151/113 H 100 04/03/18 14:30 04/03/18 15:47 04/03/18 15:47 04/03/18 15:47 04/03/18 16:52 Skull Exam: Negative for: Scalp wound, Scalp hematoma, Scalp depression Eye Exam: Negative for: Pupils reactive Mouth Exam: Negative for: Tongue bitten Neck Exam: Negative for: Tenderness, Weakness Spinal Exam: Negative for: Tenderness, Weakness Chest Exam: Negative for: Difficulty breathing Abdomen Exam: Negative for: Tenderness Pelvic Exam: Negative for: Tenderness Arm Exam: Negative for: Deformity Leg Exam: Negative for: Deformity (dilated) Impression/Plan: cervical collar 2mg ativan transfer to ED Vitals HR 123, BP 137/86, RR 25 <Lyle Carlton - Last Filed: 04/03/18 18:31> Post Fall Progress Note - Post Fall Exam Vital Sign: Temp Pulse Resp BP Pulse Ox 99.3 F 120 H 16 147/97 H 100 04/03/18 14:30 04/03/18 16:46 04/03/18 17:46 04/03/18 17:46 04/03/18 16:52 Addendum Addendum: 04/03/18 18:30 Hospitalist: Please not I do not know who this patient is, it was forwarded to me to sign by the medical radiation dosimetrist for documentation purposes. Lyle Carlton
--- NOTE | 2018-04-03 17:44 | CT ---
Date of service: 04/03/2018 PROCEDURE: CT HEAD WITHOUT CONTRAST. HISTORY: s/p fall and seizure COMPARISON: None available. TECHNIQUE: Axial computed tomography images were obtained through the head/brain without intravenous contrast. Radiation dose: Total exam DLP = 1033.4 mGy-cm. This CT exam was performed using one or more of the following dose reduction techniques: Automated exposure control, adjustment of the mA and/or kV according to patient size, and/or use of iterative reconstruction technique. FINDINGS: HEMORRHAGE: Small region of high density noted within the right parietal cortex (series 4, image 42); in the setting of trauma finding presumed to represent blood unless proven otherwise. Recommend 6 hr follow-up noncontrast head CT. BRAIN: No mass effect or edema. Intracranial atherosclerosis. The samuel-white matter differentiation appears intact. Please note that MRI with diffusion imaging is more sensitive in the detection of acute ischemic event. VENTRICLES: No hydrocephalus. CALVARIUM: Unremarkable. PARANASAL SINUSES: Fluid/mucosal thickening of the left maxillary sinus. Mild mucosal thickening of the right maxillary sinus. MASTOID AIR CELLS: Unremarkable as visualized. No inflammatory changes. OTHER FINDINGS: None. IMPRESSION: Small region of high density noted within the right parietal cortex (series 4, image 42); in the setting of trauma finding presumed to represent blood unless proven otherwise. Recommend 6 hr follow-up noncontrast head CT. Fluid/mucosal thickening of the left maxillary sinus; correlate for sinusitis. Mild mucosal thickening of the right maxillary sinus. Findings discussed with Dr. Taylor Deal on 04/03/18 at 5:36 p.m.
--- NOTE | 2018-04-03 17:45 | CT ---
Date of service: 04/03/2018 PROCEDURE: CT Cervical Spine without contrast HISTORY: Seizure post fall COMPARISON: None available. TECHNIQUE: Axial computed tomography images were obtained of the cervical spine without the use of intravenous contrast. Coronal and sagittal reformatted images were created and reviewed. Radiation dose: Total exam DLP = 374.0 mGy-cm. This CT exam was performed using one or more of the following dose reduction techniques: Automated exposure control, adjustment of the mA and/or kV according to patient size, and/or use of iterative reconstruction technique. FINDINGS: Note that the examination is slightly limited by motion artifact.. VERTEBRAE: No fracture. Normal alignment. No destructive bony lesion. DISCS/SPINAL CANAL/NEURAL FORAMINA: No significant central canal or neural foraminal stenosis. Discs heights are grossly preserved. PARASPINAL SOFT TISSUES: Unremarkable. OTHER FINDINGS: None. IMPRESSION: Slightly limited motion degraded study. No acute fractures..
--- NOTE | 2018-04-03 18:04 | CP.PCM.CON ---
<Matt Burton - Last Filed: 04/03/18 18:19> History of Present Illness - History of Present Illness History of Present Illness: PGY- 1 ICU consult note for Dr. Trinidad Patient is a 42 yo male, with a PMH of alcohol abuse, opiate abuse, gastritis, diabetes, and anxiety, presenting with a seizure episode. Fany phoenix was called in the ED waiting room and the patient was found to have a seizure episode. Upon chart review, patient has been multiple times at [facility] and [facility] (formerly [facility]3] for alcohol abuse, seizures, and hyperglycemia. In the ED today, patient was found to have a glucose level of more than 600. Patient admitted to the ICU for seizures, DKA, and alcohol withdrawal symptoms. History and ROS are both very limited due to patient's altered mental status, most of the past medical history is obtained from chart review. PMH: alcohol abuse, heroin abuse, Diabetes, Gastritis, Anxiety PSH: denies FH: Mother OR in 7th decade, Father OR in 6th decade SH: 15pack years, 3 beers every other day X 15 years, Cocaine use, opiate use home meds: unknown Allergies: NKDA PMD: unknown Review of Systems - Review of Systems All systems: reviewed and no additional remarkable complaints except Past Patient History - Infectious Disease Hx of Infectious Diseases: None - Tetanus Immunizations Tetanus Immunization: Unknown - Past Medical History & Family History Past Medical History?: Yes - Past Social History Smoking Status: Heavy Smoker > 10 Cigarettes Daily - CARDIAC Hx Hypertension: No - PULMONARY Hx Tuberculosis: No - NEUROLOGICAL Hx Seizures: No - HEENT Hx HEENT Problems: No - RENAL Hx Chronic Kidney Disease: No - ENDOCRINE/METABOLIC Hx Endocrine Disorders: Yes Hx Diabetes Mellitus Type 2: Yes - HEMATOLOGICAL/ONCOLOGICAL Hx Human Immunodeficiency Virus (HIV): No - INTEGUMENTARY Hx Dermatological Problems: No (TATTOO TO LEFT LEG.) - MUSCULOSKELETAL/RHEUMATOLOGICAL Hx Falls: Yes - GASTROINTESTINAL Hx Gastritis: Yes - GENITOURINARY/GYNECOLOGICAL Hx Sexually Transmitted Disorders: No - PSYCHIATRIC Hx Anxiety: Yes Hx Depression: No Hx Substance Use: Yes - SURGICAL HISTORY Hx Surgeries: No - ANESTHESIA Hx Anesthesia: Yes Hx Anesthesia Reactions: No Meds Allergies/Adverse Reactions: Allergies Allergy/AdvReac Type Severity Reaction Status Date / Time No Known Allergies Allergy Verified 04/03/18 14:18 - Medications Medications: Current Medications Dextrose (Dextrose 50% Inj) 0 ml IV STAT PRN; Protocol PRN Reason: Hypoglycemia Protocol Dextrose (Glutose 15) 0 gm PO ONCE PRN; Protocol PRN Reason: Hypoglycemia Protocol Glucagon (Glucagen Diagnostic Kit) 0 mg IM STAT PRN; Protocol PRN Reason: Hypoglycemia Protocol Multivitamins/Vitamin C 10 ml/Thiamine HCl 100 mg/ Folic Acid 1 mg/ Sodium Chloride 1,011.2 mls @ 150 mls/hr IV .Q6H45M ONE Stop: 04/03/18 21:16 Dextrose (Dextrose 5% In Water 1000 Ml) 1,000 mls @ 0 mls/hr IV .Q0M PRN; Protocol PRN Reason: Hypoglycemia Protocol Insulin Human Regular 100 unit (/ Sodium Chloride) 100 mls @ 7 mls/hr IV .Q1 4H18M [facility] Last Admin: 04/03/18 16:46 Dose: 7 mls/hr Potassium Chloride 20 meq/ (Sodium Chloride) 1,010 mls @ 200 mls/hr IV .Q5H3M [facility] Last Admin: 04/03/18 16:48 Dose: 200 mls/hr Lorazepam (Ativan) 1 mg IVP Q4H PRN PRN Reason: Symptoms of alcohol withdrawl Physical Exam - Constitutional Appears: Toxic, No Acute Distress - Head Exam Head Exam: ATRAUMATIC, NORMOCEPHALIC Additional comments: No lacerations or bleeding noted - Eye Exam Eye Exam: EOMI, Normal appearance, PERRL. absent: Scleral icterus Pupil Exam: PERRL - ENT Exam ENT Exam: Mucous Membranes Dry - Respiratory Exam Respiratory Exam: Rhonchi. absent: Accessory Muscle Use, Clear to Auscultation Bilateral, Rales, Wheezes, Respiratory Distress - Cardiovascular Exam Cardiovascular Exam: Tachycardia, +S1, +S2. absent: Gallop, Rubs, Systolic Murmur - GI/Abdominal Exam GI & Abdominal Exam: Normal Bowel Sounds, Soft. absent: Distended, Firm, Guarding, Tenderness - Extremities Exam Extremities exam: Positive for: normal inspection. Negative for: pedal edema - Psychiatric Exam Additional comments: Lethargic - Skin Additional comments: Bruising noted on bilateral knees. Results - Vital Signs Recent Vital Signs: Last Vital Signs Temp 99.3 F 04/03/18 14:30 Pulse 120 H 04/03/18 16:46 Resp 16 04/03/18 17:46 BP 147/97 H 04/03/18 17:46 Pulse Ox 100 04/03/18 16:52 - Labs Result Diagrams: 04/03/18 14:36 04/03/18 14:36 Labs: Laboratory Results - last 24 hr 04/03/18 04/03/18 04/03/18 14:17 14:36 14:36 WBC 12.3 H D RBC 4.88 Hgb 15.2 D Hct 44.9 MCV 92.0 MCH 31.2 H MCHC 33.9 RDW 14.0 Plt Count 192 MPV 9.1 Neut % (Auto) 82.7 H Lymph % (Auto) 12.4 L [place] % (Auto) 4.4 Eos % (Auto) 0.0 Baso % (Auto) 0.5 Neut # (Auto) 10.2 H Lymph # (Auto) 1.5 [place] # (Auto) 0.5 Eos # (Auto) 0.0 Baso # (Auto) 0.1 PT 10.8 INR 1.0 APTT 26 Puncture Site pCO2 pO2 HCO3 ABG pH ABG Total CO2 ABG O2 Saturation ABG Base Excess ABG Hemoglobin ABG Carboxyhemoglobin POC ABG HHb (Measured) ABG Methemoglobin Nathaniel Test A-a O2 Difference Respiratory Index Hgb O2 Saturation FiO2 Sodium Potassium Chloride Carbon Dioxide Anion Gap BUN Creatinine Est GFR ( Amer) Est GFR (Non-Af Amer) POC Glucose (mg/dL) > 500 H* Random Glucose Calcium Phosphorus Magnesium Total Bilirubin AST ALT Alkaline Phosphatase Troponin I Total Protein Albumin Globulin Albumin/Globulin Ratio Lipase Urine Color Urine Clarity Urine pH Ur Specific [place] Urine Protein Urine Glucose (UA) Urine Ketones Urine Blood Urine Nitrate Urine Bilirubin Urine Urobilinogen Ur Leukocyte Esterase Urine WBC (Auto) Urine RBC (Auto) Salicylates Urine Opiates Screen Urine Methadone Screen Acetaminophen Ur Barbiturates Screen Ur Phencyclidine Scrn Ur Amphetamines Screen U Benzodiazepines Scrn U Oth Cocaine Metabols U Cannabinoids Screen Alcohol, Quantitative 04/03/18 04/03/18 04/03/18 14:36 14:36 14:44 WBC RBC Hgb Hct MCV MCH MCHC RDW Plt Count MPV Neut % (Auto) Lymph % (Auto) [place] % (Auto) Eos % (Auto) Baso % (Auto) Neut # (Auto) Lymph # (Auto) [place] # (Auto) Eos # (Auto) Baso # (Auto) PT INR APTT Puncture Site pCO2 pO2 HCO3 ABG pH ABG Total CO2 ABG O2 Saturation ABG Base Excess ABG Hemoglobin ABG Carboxyhemoglobin POC ABG HHb (Measured) ABG Methemoglobin Nathaniel Test A-a O2 Difference Respiratory Index Hgb O2 Saturation FiO2 Sodium 119 L* Potassium 3.3 L Chloride 61 L D Carbon Dioxide 13 L Anion Gap 50 H BUN 24 H Creatinine 1.7 H Est GFR ( Amer) 54 Est GFR (Non-Af Amer) 45 POC Glucose (mg/dL) Random Glucose 600 H* D Calcium 8.5 L Phosphorus 6.3 H Magnesium 2.3 Total Bilirubin 1.7 H AST 158 H D ALT 76 H Alkaline Phosphatase 163 H D Troponin I 0.0220 Total Protein 8.3 Albumin 5.5 H D Globulin 2.8 Albumin/Globulin Ratio 1.9 Lipase Urine Color Urine Clarity Urine pH Ur Specific [place] Urine Protein Urine Glucose (UA) Urine Ketones Urine Blood Urine Nitrate Urine Bilirubin Urine Urobilinogen Ur Leukocyte Esterase Urine WBC (Auto) Urine RBC (Auto) Salicylates < 1.0 Urine Opiates Screen Negative Urine Methadone Screen Negative Acetaminophen < 10.0 L Ur Barbiturates Screen Negative Ur Phencyclidine Scrn Negative Ur Amphetamines Screen Negative U Benzodiazepines Scrn Negative U Oth Cocaine Metabols Negative U Cannabinoids Screen Negative Alcohol, Quantitative < 10 04/03/18 04/03/18 04/03/18 14:44 16:10 16:25 WBC RBC Hgb Hct MCV MCH MCHC RDW Plt Count MPV Neut % (Auto) Lymph % (Auto) [place] % (Auto) Eos % (Auto) Baso % (Auto) Neut # (Auto) Lymph # (Auto) [place] # (Auto) Eos # (Auto) Baso # (Auto) PT INR APTT Puncture Site Rradial pCO2 24 L pO2 62 L HCO3 18.5 L ABG pH 7.40 ABG Total CO2 15.6 L ABG O2 Saturation 93.2 L ABG Base Excess -7.9 L ABG Hemoglobin 14.3 ABG Carboxyhemoglobin 2.8 H POC ABG HHb (Measured) 6.5 H ABG Methemoglobin 1.3 Nathaniel Test Pos A-a O2 Difference 58.0 Respiratory Index 0.9 Hgb O2 Saturation 89.4 L FiO2 21.0 Sodium Potassium Chloride Carbon Dioxide Anion Gap BUN Creatinine Est GFR ( Amer) Est GFR (Non-Af Amer) POC Glucose (mg/dL) Random Glucose Calcium Phosphorus Magnesium Total Bilirubin AST ALT Alkaline Phosphatase Troponin I Total Protein Albumin Globulin Albumin/Globulin Ratio Lipase 1960 H Urine Color Yellow Urine Clarity Clear Urine pH 5.0 Ur Specific [place] 1.017 Urine Protein 1+ H Urine Glucose (UA) 3+ H Urine Ketones 2+ H Urine Blood 2+ H Urine Nitrate Negative Urine Bilirubin Negative Urine Urobilinogen Normal Ur Leukocyte Esterase Neg Urine WBC (Auto) 1 Urine RBC (Auto) 15 H Salicylates Urine Opiates Screen Urine Methadone Screen Acetaminophen Ur Barbiturates Screen Ur Phencyclidine Scrn Ur Amphetamines Screen U Benzodiazepines Scrn U Oth Cocaine Metabols U Cannabinoids Screen Alcohol, Quantitative Assessment & Plan - Assessment and Plan (Free Text) Assessment: Patient is a 42 year old male with PMH of alcohol abuse admitted to ICU for seizures, DKA, and alcohol withdrawal symptoms. Plan: Neuro: Seizures - Likely 2/2 alcohol withdrawal symptoms - Altered mental status - 6mg Ativan given in the ED - Neurochecks Q4 Alcohol withdrawal symtoms - Ativan 1mg IV Q4 PRN - Thiamine, folic acid, MV daily - CIWA protocol - Seizure protocol - Aspiration protocol Cardiovascular: Sinus tachycardia - EKG: Sinus tachycardia, no ST changes - Continue to monitor Respiratory: Tachypnea - Continue O2 nasal cannula - O2 sat: 100% on 2L O2 - Monitor for respiratory distress - CXR: No active disease GI: Rule out Acute pancreatitis - Lipase: 1960 - CT abdomen/pelvis (04/03): suspicious for enteritis. Moderate fatty liver. No evidence of pancreatitis, cholecystitis, or nephrolithiasis. - NPO - Lipid panel: f/u Alcoholic liver disease - AST/ALT: 158/76 - Hepatitis panel (03/10): negative Endo: DKA - Glucose level on admission: >600 - Insulin drip - HbA1C (03/10): 12.3 - BMP Q4H - Accuchecks Q4H x 6 - Dextrose 5%/ 0.9%NS with potassium chloride @ 150mls/hr - Hypoglycemia protocol Renal: NORMA - BUN/Cr: 24/1.7 - Pt given fluid bolus - Dextrose 5%/ 0.9%NS with potassium chloride @ 150mls/hr - Avoid nephrotoxins - Cotinue to monitor ID: Leukocytosis - WBC: 12.3 - Patient afebrile - Continue to monitor Prophylaxis: - SCD's - Lovenox 40mg SC QD - GI prophylaxis not indicated Case discussed with Dr. Vivi Burton <Luis Trinidad - Last Filed: 04/04/18 09:12> Meds - Medications Medications: Current Medications Chlordiazepoxide (Librium) 25 mg PO Q8 [facility] Last Admin: 04/04/18 05:36 Dose: Not Given Dextrose (Dextrose 50% Inj) 0 ml IV STAT PRN; Protocol PRN Reason: Hypoglycemia Protocol Dextrose (Glutose 15) 0 gm PO ONCE PRN; Protocol PRN Reason: Hypoglycemia Protocol Enoxaparin Sodium (Lovenox) 40 mg SC DAILY [facility] Glucagon (Glucagen Diagnostic Kit) 0 mg IM STAT PRN; Protocol PRN Reason: Hypoglycemia Protocol Dextrose (Dextrose 5% In Water 1000 Ml) 1,000 mls @ 0 mls/hr IV .Q0M PRN; Protocol PRN Reason: Hypoglycemia Protocol Folic Acid 1 mg/ Sodium (Chloride) 100.2 mls @ 60 mls/hr IV DAILY [facility] Potassium Phosphate 15 mmole/ (Sodium Chloride) 255 mls @ 42.5 mls/hr IVPB ONCE ONE Stop: 04/04/18 13:20 Potassium Chloride 20 meq/ (Dextrose/Sodium Chloride) 1,010 mls @ 100 mls/hr IV .Q10H6M [facility] Insulin Glargine (Lantus) 10 unit SC [facility] Last Admin: 04/03/18 23:59 Dose: 10 units Insulin Human Regular (Novolin R) 0 unit SC Q4H LUCILA; Protocol Lorazepam (Ativan) 1 mg IVP Q4H PRN PRN Reason: Symptoms of alcohol withdrawl Multivitamins/Vitamin C (Multi-Delyn Liquid) 5 ml PO DAILY [facility] Oxycodone/Acetaminophen (Percocet 5/325 Mg Tab) 1 tab PO Q6H PRN PRN Reason: Pain, moderate (4-7) Stop: 04/07/18 00:21 Last Admin: 04/04/18 04:46 Dose: 1 tab Results - Vital Signs Recent Vital Signs: Last Vital Signs Temp 98.4 F 04/04/18 08:00 Pulse 101 H 04/04/18 08:00 Resp 21 04/04/18 08:00 BP 138/80 04/04/18 08:00 Pulse Ox 99 04/04/18 08:00 - Labs Result Diagrams: 04/04/18 05:53 04/04/18 05:53 Labs: Laboratory Results - last 24 hr 04/03/18 04/03/18 04/03/18 14:17 14:36 14:36 WBC 12.3 H D RBC 4.88 Hgb 15.2 D Hct 44.9 MCV 92.0 MCH 31.2 H MCHC 33.9 RDW 14.0 Plt Count 192 MPV 9.1 Neut % (Auto) 82.7 H Lymph % (Auto) 12.4 L [place] % (Auto) 4.4 Eos % (Auto) 0.0 Baso % (Auto) 0.5 Neut # (Auto) 10.2 H Lymph # (Auto) 1.5 [place] # (Auto) 0.5 Eos # (Auto) 0.0 Baso # (Auto) 0.1 PT 10.8 INR 1.0 APTT 26 Puncture Site pCO2 pO2 HCO3 ABG pH ABG Total CO2 ABG O2 Saturation ABG Base Excess ABG Hemoglobin ABG Carboxyhemoglobin POC ABG HHb (Measured) ABG Methemoglobin Nathaniel Test A-a O2 Difference Respiratory Index Hgb O2 Saturation FiO2 Sodium Potassium Chloride Carbon Dioxide Anion Gap BUN Creatinine Est GFR ( Amer) Est GFR (Non-Af Amer) POC Glucose (mg/dL) > 500 H* Random Glucose Calcium Phosphorus Magnesium Total Bilirubin AST ALT Alkaline Phosphatase Troponin I Total Protein Albumin Globulin Albumin/Globulin Ratio Triglycerides Cholesterol LDL Cholesterol Direct HDL Cholesterol Lipase Urine Color Urine Clarity Urine pH Ur Specific [place] Urine Protein Urine Glucose (UA) Urine Ketones Urine Blood Urine Nitrate Urine Bilirubin Urine Urobilinogen Ur Leukocyte Esterase Urine WBC (Auto) Urine RBC (Auto) Salicylates Urine Opiates Screen Urine Methadone Screen Acetaminophen Ur Barbiturates Screen Ur Phencyclidine Scrn Ur Amphetamines Screen U Benzodiazepines Scrn U Oth Cocaine Metabols U Cannabinoids Screen Alcohol, Quantitative 04/03/18 04/03/18 04/03/18 14:36 14:36 14:44 WBC RBC Hgb Hct MCV MCH MCHC RDW Plt Count MPV Neut % (Auto) Lymph % (Auto) [place] % (Auto) Eos % (Auto) Baso % (Auto) Neut # (Auto) Lymph # (Auto) [place] # (Auto) Eos # (Auto) Baso # (Auto) PT INR APTT Puncture Site pCO2 pO2 HCO3 ABG pH ABG Total CO2 ABG O2 Saturation ABG Base Excess ABG Hemoglobin ABG Carboxyhemoglobin POC ABG HHb (Measured) ABG Methemoglobin Nathaniel Test A-a O2 Difference Respiratory Index Hgb O2 Saturation FiO2 Sodium 119 L* Potassium 3.3 L Chloride 61 L D Carbon Dioxide 13 L Anion Gap 50 H BUN 24 H Creatinine 1.7 H Est GFR ( Amer) 54 Est GFR (Non-Af Amer) 45 POC Glucose (mg/dL) Random Glucose 600 H* D Calcium 8.5 L Phosphorus 6.3 H Magnesium 2.3 Total Bilirubin 1.7 H AST 158 H D ALT 76 H Alkaline Phosphatase 163 H D Troponin I 0.0220 Total Protein 8.3 Albumin 5.5 H D Globulin 2.8 Albumin/Globulin Ratio 1.9 Triglycerides Cholesterol LDL Cholesterol Direct HDL Cholesterol Lipase Urine Color Urine Clarity Urine pH Ur Specific [place] Urine Protein Urine Glucose (UA) Urine Ketones Urine Blood Urine Nitrate Urine Bilirubin Urine Urobilinogen Ur Leukocyte Esterase Urine WBC (Auto) Urine RBC (Auto) Salicylates < 1.0 Urine Opiates Screen Negative Urine Methadone Screen Negative Acetaminophen < 10.0 L Ur Barbiturates Screen Negative Ur Phencyclidine Scrn Negative Ur Amphetamines Screen Negative U Benzodiazepines Scrn Negative U Oth Cocaine Metabols Negative U Cannabinoids Screen Negative Alcohol, Quantitative < 10 04/03/18 04/03/18 04/03/18 14:44 16:10 16:25 WBC RBC Hgb Hct MCV MCH MCHC RDW Plt Count MPV Neut % (Auto) Lymph % (Auto) [place] % (Auto) Eos % (Auto) Baso % (Auto) Neut # (Auto) Lymph # (Auto) [place] # (Auto) Eos # (Auto) Baso # (Auto) PT INR APTT Puncture Site Rradial pCO2 24 L pO2 62 L HCO3 18.5 L ABG pH 7.40 ABG Total CO2 15.6 L ABG O2 Saturation 93.2 L ABG Base Excess -7.9 L ABG Hemoglobin 14.3 ABG Carboxyhemoglobin 2.8 H POC ABG HHb (Measured) 6.5 H ABG Methemoglobin 1.3 Nathaniel Test Pos A-a O2 Difference 58.0 Respiratory Index 0.9 Hgb O2 Saturation 89.4 L FiO2 21.0 Sodium Potassium Chloride Carbon Dioxide Anion Gap BUN Creatinine Est GFR ( Amer) Est GFR (Non-Af Amer) POC Glucose (mg/dL) Random Glucose Calcium Phosphorus Magnesium Total Bilirubin AST ALT Alkaline Phosphatase Troponin I Total Protein Albumin Globulin Albumin/Globulin Ratio Triglycerides Cholesterol LDL Cholesterol Direct HDL Cholesterol Lipase 1960 H Urine Color Yellow Urine Clarity Clear Urine pH 5.0 Ur Specific [place] 1.017 Urine Protein 1+ H Urine Glucose (UA) 3+ H Urine Ketones 2+ H Urine Blood 2+ H Urine Nitrate Negative Urine Bilirubin Negative Urine Urobilinogen Normal Ur Leukocyte Esterase Neg Urine WBC (Auto) 1 Urine RBC (Auto) 15 H Salicylates Urine Opiates Screen Urine Methadone Screen Acetaminophen Ur Barbiturates Screen Ur Phencyclidine Scrn Ur Amphetamines Screen U Benzodiazepines Scrn U Oth Cocaine Metabols U Cannabinoids Screen Alcohol, Quantitative 04/03/18 04/03/18 04/03/18 19:22 21:40 22:42 WBC RBC Hgb Hct MCV MCH MCHC RDW Plt Count MPV Neut % (Auto) Lymph % (Auto) [place] % (Auto) Eos % (Auto) Baso % (Auto) Neut # (Auto) Lymph # (Auto) [place] # (Auto) Eos # (Auto) Baso # (Auto) PT INR APTT Puncture Site pCO2 pO2 HCO3 ABG pH ABG Total CO2 ABG O2 Saturation ABG Base Excess ABG Hemoglobin ABG Carboxyhemoglobin POC ABG HHb (Measured) ABG Methemoglobin Nathaniel Test A-a O2 Difference Respiratory Index Hgb O2 Saturation FiO2 Sodium 126 L Potassium 4.4 Chloride 82 L D Carbon Dioxide 17 L Anion Gap 31 H BUN 21 H Creatinine 1.0 Est GFR ( Amer) > 60 Est GFR (Non-Af Amer) > 60 POC Glucose (mg/dL) 187 H 207 H Random Glucose 127 H Calcium 7.7 L Phosphorus Magnesium Total Bilirubin 1.1 AST 124 H D ALT 61 Alkaline Phosphatase 102 Troponin I Total Protein 7.3 Albumin 4.5 Globulin 2.9 Albumin/Globulin Ratio 1.6 Triglycerides 353 H Cholesterol 270 H LDL Cholesterol Direct 141 H HDL Cholesterol 66 Lipase Urine Color Urine Clarity Urine pH Ur Specific [place] Urine Protein Urine Glucose (UA) Urine Ketones Urine Blood Urine Nitrate Urine Bilirubin Urine Urobilinogen Ur Leukocyte Esterase Urine WBC (Auto) Urine RBC (Auto) Salicylates Urine Opiates Screen Urine Methadone Screen Acetaminophen Ur Barbiturates Screen Ur Phencyclidine Scrn Ur Amphetamines Screen U Benzodiazepines Scrn U Oth Cocaine Metabols U Cannabinoids Screen Alcohol, Quantitative 04/03/18 04/04/18 04/04/18 23:27 00:30 01:29 WBC RBC Hgb Hct MCV MCH MCHC RDW Plt Count MPV Neut % (Auto) Lymph % (Auto) [place] % (Auto) Eos % (Auto) Baso % (Auto) Neut # (Auto) Lymph # (Auto) [place] # (Auto) Eos # (Auto) Baso # (Auto) PT INR APTT Puncture Site pCO2 pO2 HCO3 ABG pH ABG Total CO2 ABG O2 Saturation ABG Base Excess ABG Hemoglobin ABG Carboxyhemoglobin POC ABG HHb (Measured) ABG Methemoglobin Nathaniel Test A-a O2 Difference Respiratory Index Hgb O2 Saturation FiO2 Sodium Potassium Chloride Carbon Dioxide Anion Gap BUN Creatinine Est GFR ( Amer) Est GFR (Non-Af Amer) POC Glucose (mg/dL) 219 H 159 H 116 H Random Glucose Calcium Phosphorus Magnesium Total Bilirubin AST ALT Alkaline Phosphatase Troponin I Total Protein Albumin Globulin Albumin/Globulin Ratio Triglycerides Cholesterol LDL Cholesterol Direct HDL Cholesterol Lipase Urine Color Urine Clarity Urine pH Ur Specific [place] Urine Protein Urine Glucose (UA) Urine Ketones Urine Blood Urine Nitrate Urine Bilirubin Urine Urobilinogen Ur Leukocyte Esterase Urine WBC (Auto) Urine RBC (Auto) Salicylates Urine Opiates Screen Urine Methadone Screen Acetaminophen Ur Barbiturates Screen Ur Phencyclidine Scrn Ur Amphetamines Screen U Benzodiazepines Scrn U Oth Cocaine Metabols U Cannabinoids Screen Alcohol, Quantitative 04/04/18 04/04/18 04/04/18 01:57 02:21 03:29 WBC RBC Hgb Hct MCV MCH MCHC RDW Plt Count MPV Neut % (Auto) Lymph % (Auto) [place] % (Auto) Eos % (Auto) Baso % (Auto) Neut # (Auto) Lymph # (Auto) [place] # (Auto) Eos # (Auto) Baso # (Auto) PT INR APTT Puncture Site pCO2 pO2 HCO3 ABG pH ABG Total CO2 ABG O2 Saturation ABG Base Excess ABG Hemoglobin ABG Carboxyhemoglobin POC ABG HHb (Measured) ABG Methemoglobin Nathaniel Test A-a O2 Difference Respiratory Index Hgb O2 Saturation FiO2 Sodium 130 L Potassium 3.6 Chloride 92 L Carbon Dioxide 17 L Anion Gap 25 H BUN 18 Creatinine 0.8 Est GFR ( Amer) > 60 Est GFR (Non-Af Amer) > 60 POC Glucose (mg/dL) 101 196 H Random Glucose 72 L Calcium 7.6 L Phosphorus Magnesium Total Bilirubin AST ALT Alkaline Phosphatase Troponin I Total Protein Albumin Globulin Albumin/Globulin Ratio Triglycerides Cholesterol LDL Cholesterol Direct HDL Cholesterol Lipase Urine Color Urine Clarity Urine pH Ur Specific [place] Urine Protein Urine Glucose (UA) Urine Ketones Urine Blood Urine Nitrate Urine Bilirubin Urine Urobilinogen Ur Leukocyte Esterase Urine WBC (Auto) Urine RBC (Auto) Salicylates Urine Opiates Screen Urine Methadone Screen Acetaminophen Ur Barbiturates Screen Ur Phencyclidine Scrn Ur Amphetamines Screen U Benzodiazepines Scrn U Oth Cocaine Metabols U Cannabinoids Screen Alcohol, Quantitative 04/04/18 04/04/18 04/04/18 04:28 05:28 05:53 WBC 10.1 RBC 4.01 L Hgb 12.4 D Hct 35.8 MCV 89.1 D MCH 30.9 MCHC 34.7 RDW 13.7 Plt Count 98 L D MPV 8.0 Neut % (Auto) 78.8 H Lymph % (Auto) 16.7 L [place] % (Auto) 3.6 Eos % (Auto) 0.1 Baso % (Auto) 0.8 Neut # (Auto) 7.9 H Lymph # (Auto) 1.7 [place] # (Auto) 0.4 Eos # (Auto) 0.0 Baso # (Auto) 0.1 PT INR APTT Puncture Site pCO2 pO2 HCO3 ABG pH ABG Total CO2 ABG O2 Saturation ABG Base Excess ABG Hemoglobin ABG Carboxyhemoglobin POC ABG HHb (Measured) ABG Methemoglobin Nathaniel Test A-a O2 Difference Respiratory Index Hgb O2 Saturation FiO2 Sodium Potassium Chloride Carbon Dioxide Anion Gap BUN Creatinine Est GFR ( Amer) Est GFR (Non-Af Amer) POC Glucose (mg/dL) 154 H 128 H Random Glucose Calcium Phosphorus Magnesium Total Bilirubin AST ALT Alkaline Phosphatase Troponin I Total Protein Albumin Globulin Albumin/Globulin Ratio Triglycerides Cholesterol LDL Cholesterol Direct HDL Cholesterol Lipase Urine Color Urine Clarity Urine pH Ur Specific [place] Urine Protein Urine Glucose (UA) Urine Ketones Urine Blood Urine Nitrate Urine Bilirubin Urine Urobilinogen Ur Leukocyte Esterase Urine WBC (Auto) Urine RBC (Auto) Salicylates Urine Opiates Screen Urine Methadone Screen Acetaminophen Ur Barbiturates Screen Ur Phencyclidine Scrn Ur Amphetamines Screen U Benzodiazepines Scrn U Oth Cocaine Metabols U Cannabinoids Screen Alcohol, Quantitative 04/04/18 04/04/18 04/04/18 05:53 06:24 07:52 WBC RBC Hgb Hct MCV MCH MCHC RDW Plt Count MPV Neut % (Auto) Lymph % (Auto) [place] % (Auto) Eos % (Auto) Baso % (Auto) Neut # (Auto) Lymph # (Auto) [place] # (Auto) Eos # (Auto) Baso # (Auto) PT INR APTT Puncture Site pCO2 pO2 HCO3 ABG pH ABG Total CO2 ABG O2 Saturation ABG Base Excess ABG Hemoglobin ABG Carboxyhemoglobin POC ABG HHb (Measured) ABG Methemoglobin Nathaniel Test A-a O2 Difference Respiratory Index Hgb O2 Saturation FiO2 Sodium 131 L Potassium 3.5 L Chloride 96 L Carbon Dioxide 17 L Anion Gap 21 H BUN 14 Creatinine 0.8 Est GFR ( Amer) > 60 Est GFR (Non-Af Amer) > 60 POC Glucose (mg/dL) 158 H 141 H Random Glucose 124 H Calcium 7.7 L Phosphorus 1.3 L Magnesium 2.2 Total Bilirubin 0.8 AST 57 ALT 43 Alkaline Phosphatase 97 Troponin I Total Protein 6.6 Albumin 3.9 Globulin 2.7 Albumin/Globulin Ratio 1.5 Triglycerides Cholesterol LDL Cholesterol Direct HDL Cholesterol Lipase Urine Color Urine Clarity Urine pH Ur Specific [place] Urine Protein Urine Glucose (UA) Urine Ketones Urine Blood Urine Nitrate Urine Bilirubin Urine Urobilinogen Ur Leukocyte Esterase Urine WBC (Auto) Urine RBC (Auto) Salicylates Urine Opiates Screen Urine Methadone Screen Acetaminophen Ur Barbiturates Screen Ur Phencyclidine Scrn Ur Amphetamines Screen U Benzodiazepines Scrn U Oth Cocaine Metabols U Cannabinoids Screen Alcohol, Quantitative Attending/Attestation - Attestation I have personally seen and examined this patient.: Yes I have fully participated in the care of the patient.: Yes I have reviewed all pertinent clinical information: Yes Notes (Text): 04/03/18 07:30PM I have seen and examined the patient. Medical records, lab studies, and imaging were reviewed by me and a management plan was formulated on multidisciplinary rounds with resident Dr. Burton. I agree with their documented assessment and plan. Patient was in diabetic ketoacidosis and possibly alcoholic ketoacidosis, started on insulin drip, will monitor. Critical Care Time 35 minutes. Multi-disciplinary rounds were performed with house staff, nursing, speech therapy, respiratory therapy, pharmacy and nutrition with integrated input from the primary team/attending and other consulting services. The documented time is cumulative and includes review of patient data/exams/labs/chart review and examination of the patient on rounds and throughout the day; time is exclusive of any procedures or teaching time.
--- NOTE | 2018-04-03 18:04 | CT ---
Date of service: 04/03/2018 PROCEDURE: CT Abdomen and Pelvis without intravenous contrast HISTORY: vomiting, elevated lipase COMPARISON: None. TECHNIQUE: Axial and reformatted coronal and sagittal CT images of the abdomen and pelvis were obtained without IV or oral contrast administration.. Contrast dose: 0 Radiation dose: Total exam DLP = 414.11 mGy-cm. This CT exam was performed using one or more of the following dose reduction techniques: Automated exposure control, adjustment of the mA and/or kV according to patient size, and/or use of iterative reconstruction technique. FINDINGS: LOWER THORAX: Unremarkable. LIVER: The liver is mildly enlarged demonstrate moderate diffuse low-attenuation suggestive of moderate fibrofatty infiltration. GALLBLADDER AND BILE DUCTS: No evidence of acute cholecystitis or biliary obstruction. PANCREAS: No CT evidence of acute pancreatitis. No evidence of dilated main pancreatic duct. SPLEEN: Unremarkable. ADRENALS: There is 1.3 centimeter nodule at the left adrenal gland KIDNEYS AND URETERS: No evidence of hydronephrosis or obstructing stone. The kidneys are symmetrical in size and shape. VASCULATURE: Unremarkable. No aortic aneurysm. No aortic atherosclerotic calcification or mural plaque present. BOWEL: Mildly dilated small bowel loops suspicious for mild enteritis. No evidence of high-grade bowel obstruction. APPENDIX: No evidence of appendicitis. PERITONEUM: Unremarkable. No free fluid. No free air. LYMPH NODES: Unremarkable. No enlarged lymph nodes. BLADDER: The urinary bladder is seen at low somewhat low position. Please correlate clinically for cystocele. REPRODUCTIVE: The prostate and seminal vesicles are mildly enlarged. BONES: No acute fracture. OTHER FINDINGS: None. IMPRESSION: Findings suspicious for enteritis. Moderate fatty liver infiltration. No CT evidence of acute cholecystitis or pancreatitis. No evidence of obstructing renal stone.
[2018-04-03] MEDS ORDERED: Thiamine 100 mg/ml Inj IV ONE (18:13)
[2018-04-03] MEDS: Potassium Chloride 20 MEQ in Dextrose 5%/0.9% NS 1,000 ML IV SCH (18:40)
[2018-04-03 19:47] LABS: LDL CHOLESTEROL 141 mg/dL (0-129)
[2018-04-03 19:48] LABS: ALB/GLOB RATIO 1.6 (1.0-2.1); ALBUMIN 4.5 g/dL (3.5-5.0); ALT/SGPT 61 U/L (21-72); AST/SGOT 124 U/L (17-59); BLOOD UREA NITROGEN 21 mg/dL (9-20); CALCIUM 7.7 mg/dl (8.6-10.4); GFR NON-AFRICAN AMERICAN > 60; HDL CHOLESTEROL 66 mg/dL (30-70)
--- NOTE | 2018-04-03 21:48 | CP.PCM.HP ---
Past Patient History - Infectious Disease Hx of Infectious Diseases: None - Tetanus Immunizations Tetanus Immunization: Unknown - Past Medical History & Family History Past Medical History?: Yes - Past Social History Smoking Status: Heavy Smoker > 10 Cigarettes Daily - CARDIAC Hx Hypertension: No - PULMONARY Hx Tuberculosis: No - NEUROLOGICAL Hx Seizures: No - HEENT Hx HEENT Problems: No - RENAL Hx Chronic Kidney Disease: No - ENDOCRINE/METABOLIC Hx Endocrine Disorders: Yes Hx Diabetes Mellitus Type 2: Yes - HEMATOLOGICAL/ONCOLOGICAL Hx Human Immunodeficiency Virus (HIV): No - INTEGUMENTARY Hx Dermatological Problems: No (TATTOO TO LEFT LEG.) - MUSCULOSKELETAL/RHEUMATOLOGICAL Hx Falls: Yes - GASTROINTESTINAL Hx Gastritis: Yes - GENITOURINARY/GYNECOLOGICAL Hx Sexually Transmitted Disorders: No - PSYCHIATRIC Hx Anxiety: Yes Hx Depression: No Hx Substance Use: Yes - SURGICAL HISTORY Hx Surgeries: No - ANESTHESIA Hx Anesthesia: Yes Hx Anesthesia Reactions: No Meds Allergies/Adverse Reactions: Allergies Allergy/AdvReac Type Severity Reaction Status Date / Time No Known Allergies Allergy Verified 04/03/18 14:18 Physical Exam - Constitutional Appears: Well - Head Exam Head Exam: ATRAUMATIC, NORMAL INSPECTION, NORMOCEPHALIC - Eye Exam Eye Exam: EOMI, Normal appearance, PERRL Pupil Exam: NORMAL ACCOMODATION, PERRL - ENT Exam ENT Exam: Mucous Membranes Moist, Normal Exam - Neck Exam Neck exam: Positive for: Normal Inspection - Respiratory Exam Respiratory Exam: Decreased Breath Sounds - Cardiovascular Exam Cardiovascular Exam: REGULAR RHYTHM, +S1, +S2 - GI/Abdominal Exam GI & Abdominal Exam: Diminished Bowel Sounds, Soft - Rectal Exam Rectal Exam: Deferred Results - Vital Signs Recent Vital Signs: Last Vital Signs Temp 99.3 F 04/03/18 14:30 Pulse 120 H 04/03/18 18:40 Resp 26 H 04/03/18 18:40 BP 130/93 H 04/03/18 18:40 Pulse Ox 100 04/03/18 21:30 - Labs Result Diagrams: 04/03/18 14:36 04/03/18 19:22 Labs: Laboratory Results - last 24 hr 04/03/18 04/03/18 04/03/18 14:17 14:36 14:36 WBC 12.3 H D RBC 4.88 Hgb 15.2 D Hct 44.9 MCV 92.0 MCH 31.2 H MCHC 33.9 RDW 14.0 Plt Count 192 MPV 9.1 Neut % (Auto) 82.7 H Lymph % (Auto) 12.4 L [place] % (Auto) 4.4 Eos % (Auto) 0.0 Baso % (Auto) 0.5 Neut # (Auto) 10.2 H Lymph # (Auto) 1.5 [place] # (Auto) 0.5 Eos # (Auto) 0.0 Baso # (Auto) 0.1 PT 10.8 INR 1.0 APTT 26 Puncture Site pCO2 pO2 HCO3 ABG pH ABG Total CO2 ABG O2 Saturation ABG Base Excess ABG Hemoglobin ABG Carboxyhemoglobin POC ABG HHb (Measured) ABG Methemoglobin Nathaniel Test A-a O2 Difference Respiratory Index Hgb O2 Saturation FiO2 Sodium Potassium Chloride Carbon Dioxide Anion Gap BUN Creatinine Est GFR ( Amer) Est GFR (Non-Af Amer) POC Glucose (mg/dL) > 500 H* Random Glucose Calcium Phosphorus Magnesium Total Bilirubin AST ALT Alkaline Phosphatase Troponin I Total Protein Albumin Globulin Albumin/Globulin Ratio Triglycerides Cholesterol LDL Cholesterol Direct HDL Cholesterol Lipase Urine Color Urine Clarity Urine pH Ur Specific [place] Urine Protein Urine Glucose (UA) Urine Ketones Urine Blood Urine Nitrate Urine Bilirubin Urine Urobilinogen Ur Leukocyte Esterase Urine WBC (Auto) Urine RBC (Auto) Salicylates Urine Opiates Screen Urine Methadone Screen Acetaminophen Ur Barbiturates Screen Ur Phencyclidine Scrn Ur Amphetamines Screen U Benzodiazepines Scrn U Oth Cocaine Metabols U Cannabinoids Screen Alcohol, Quantitative 04/03/18 04/03/18 04/03/18 14:36 14:36 14:44 WBC RBC Hgb Hct MCV MCH MCHC RDW Plt Count MPV Neut % (Auto) Lymph % (Auto) [place] % (Auto) Eos % (Auto) Baso % (Auto) Neut # (Auto) Lymph # (Auto) [place] # (Auto) Eos # (Auto) Baso # (Auto) PT INR APTT Puncture Site pCO2 pO2 HCO3 ABG pH ABG Total CO2 ABG O2 Saturation ABG Base Excess ABG Hemoglobin ABG Carboxyhemoglobin POC ABG HHb (Measured) ABG Methemoglobin Nathaniel Test A-a O2 Difference Respiratory Index Hgb O2 Saturation FiO2 Sodium 119 L* Potassium 3.3 L Chloride 61 L D Carbon Dioxide 13 L Anion Gap 50 H BUN 24 H Creatinine 1.7 H Est GFR ( Amer) 54 Est GFR (Non-Af Amer) 45 POC Glucose (mg/dL) Random Glucose 600 H* D Calcium 8.5 L Phosphorus 6.3 H Magnesium 2.3 Total Bilirubin 1.7 H AST 158 H D ALT 76 H Alkaline Phosphatase 163 H D Troponin I 0.0220 Total Protein 8.3 Albumin 5.5 H D Globulin 2.8 Albumin/Globulin Ratio 1.9 Triglycerides Cholesterol LDL Cholesterol Direct HDL Cholesterol Lipase Urine Color Urine Clarity Urine pH Ur Specific [place] Urine Protein Urine Glucose (UA) Urine Ketones Urine Blood Urine Nitrate Urine Bilirubin Urine Urobilinogen Ur Leukocyte Esterase Urine WBC (Auto) Urine RBC (Auto) Salicylates < 1.0 Urine Opiates Screen Negative Urine Methadone Screen Negative Acetaminophen < 10.0 L Ur Barbiturates Screen Negative Ur Phencyclidine Scrn Negative Ur Amphetamines Screen Negative U Benzodiazepines Scrn Negative U Oth Cocaine Metabols Negative U Cannabinoids Screen Negative Alcohol, Quantitative < 10 04/03/18 04/03/18 04/03/18 14:44 16:10 16:25 WBC RBC Hgb Hct MCV MCH MCHC RDW Plt Count MPV Neut % (Auto) Lymph % (Auto) [place] % (Auto) Eos % (Auto) Baso % (Auto) Neut # (Auto) Lymph # (Auto) [place] # (Auto) Eos # (Auto) Baso # (Auto) PT INR APTT Puncture Site Rradial pCO2 24 L pO2 62 L HCO3 18.5 L ABG pH 7.40 ABG Total CO2 15.6 L ABG O2 Saturation 93.2 L ABG Base Excess -7.9 L ABG Hemoglobin 14.3 ABG Carboxyhemoglobin 2.8 H POC ABG HHb (Measured) 6.5 H ABG Methemoglobin 1.3 Nathaniel Test Pos A-a O2 Difference 58.0 Respiratory Index 0.9 Hgb O2 Saturation 89.4 L FiO2 21.0 Sodium Potassium Chloride Carbon Dioxide Anion Gap BUN Creatinine Est GFR ( Amer) Est GFR (Non-Af Amer) POC Glucose (mg/dL) Random Glucose Calcium Phosphorus Magnesium Total Bilirubin AST ALT Alkaline Phosphatase Troponin I Total Protein Albumin Globulin Albumin/Globulin Ratio Triglycerides Cholesterol LDL Cholesterol Direct HDL Cholesterol Lipase 1960 H Urine Color Yellow Urine Clarity Clear Urine pH 5.0 Ur Specific [place] 1.017 Urine Protein 1+ H Urine Glucose (UA) 3+ H Urine Ketones 2+ H Urine Blood 2+ H Urine Nitrate Negative Urine Bilirubin Negative Urine Urobilinogen Normal Ur Leukocyte Esterase Neg Urine WBC (Auto) 1 Urine RBC (Auto) 15 H Salicylates Urine Opiates Screen Urine Methadone Screen Acetaminophen Ur Barbiturates Screen Ur Phencyclidine Scrn Ur Amphetamines Screen U Benzodiazepines Scrn U Oth Cocaine Metabols U Cannabinoids Screen Alcohol, Quantitative 04/03/18 19:22 WBC RBC Hgb Hct MCV MCH MCHC RDW Plt Count MPV Neut % (Auto) Lymph % (Auto) [place] % (Auto) Eos % (Auto) Baso % (Auto) Neut # (Auto) Lymph # (Auto) [place] # (Auto) Eos # (Auto) Baso # (Auto) PT INR APTT Puncture Site pCO2 pO2 HCO3 ABG pH ABG Total CO2 ABG O2 Saturation ABG Base Excess ABG Hemoglobin ABG Carboxyhemoglobin POC ABG HHb (Measured) ABG Methemoglobin Nathaniel Test A-a O2 Difference Respiratory Index Hgb O2 Saturation FiO2 Sodium 126 L Potassium 4.4 Chloride 82 L D Carbon Dioxide 17 L Anion Gap 31 H BUN 21 H Creatinine 1.0 Est GFR ( Amer) > 60 Est GFR (Non-Af Amer) > 60 POC Glucose (mg/dL) Random Glucose 127 H Calcium 7.7 L Phosphorus Magnesium Total Bilirubin 1.1 AST 124 H D ALT 61 Alkaline Phosphatase 102 Troponin I Total Protein 7.3 Albumin 4.5 Globulin 2.9 Albumin/Globulin Ratio 1.6 Triglycerides 353 H Cholesterol 270 H LDL Cholesterol Direct 141 H HDL Cholesterol 66 Lipase Urine Color Urine Clarity Urine pH Ur Specific [place] Urine Protein Urine Glucose (UA) Urine Ketones Urine Blood Urine Nitrate Urine Bilirubin Urine Urobilinogen Ur Leukocyte Esterase Urine WBC (Auto) Urine RBC (Auto) Salicylates Urine Opiates Screen Urine Methadone Screen Acetaminophen Ur Barbiturates Screen Ur Phencyclidine Scrn Ur Amphetamines Screen U Benzodiazepines Scrn U Oth Cocaine Metabols U Cannabinoids Screen Alcohol, Quantitative
[2018-04-03] MEDS ORDERED: (Lantus) Insulin Glargine, Recombinant SC SCH (23:00)
[2018-04-04] MEDS: Potassium Chloride 20 MEQ in Dextrose 5%/0.9% NS 1,000 ML IV SCH ×2 (00:02→08:00)
[2018-04-04 02:14] LABS: BLOOD UREA NITROGEN 18 mg/dL (9-20); CALCIUM 7.6 mg/dl (8.6-10.4); GFR NON-AFRICAN AMERICAN > 60
[2018-04-04] MEDS: Oxycodone/Acetaminophen 5/325 mg Tab PO PRN ×2 (04:46→10:33)
[2018-04-04 05:55] LABS: BASO # 0.1 K/uL (0.0-0.2); BASO % 0.8 % (0.0-2.0); EOS % 0.1 % (0.0-4.0); HEMOGLOBIN 12.4 g/dL (12.0-18.0); LYMPH # 1.7 K/uL (1.0-4.3); LYMPH % 16.7 % (20.0-40.0); MEAN CELL VOLUME 89.1 fL (80.0-94.0); MEAN CORPUSCULAR HEMOGLOBIN 30.9 pg (27.0-31.0); MEAN CORPUSCULAR HGB CONC 34.7 g/dL (33.0-37.0); MONO # 0.4 K/uL (0.0-0.8); MONO % 3.6 % (0.0-10.0); NEUT # 7.9 K/uL (1.8-7.0); NEUT % 78.8 % (50.0-75.0); RBC 4.01 Mil/uL (4.40-5.90); RED CELL DISTRIBUTION WIDTH 13.7 % (11.5-14.5); WHITE BLOOD COUNT 10.1 K/uL (4.8-10.8)
[2018-04-04 06:20] LABS: ALB/GLOB RATIO 1.5 (1.0-2.1); ALBUMIN 3.9 g/dL (3.5-5.0); ALT/SGPT 43 U/L (21-72); AST/SGOT 57 U/L (17-59); BLOOD UREA NITROGEN 14 mg/dL (9-20); CALCIUM 7.7 mg/dl (8.6-10.4); GFR NON-AFRICAN AMERICAN > 60
[2018-04-04] MEDS ORDERED: Potassium Chloride 20 mEq/15 ml LIQ UD PO STA (07:23)
[2018-04-04] MEDS ORDERED: Potassium Chloride 20 MEQ in Dextrose 5%/0.9% NS 1,000 ML IV SCH (07:24)
[2018-04-04] MEDS: Potassium Phosphate 15 MMOLE in Sodium Chloride 0.9% 250 ML IVPB ONE ×2 (07:30→08:20)
--- NOTE | 2018-04-04 07:31 | CP.CCUPN ---
<Matt Burton - Last Filed: 04/04/18 07:22> CCU Subjective - Physician Review Critical Care Time Spent (in minutes): 35 CCU Objective - Vital Signs / Intake & Output Vital Signs (Last 4 hours): Vital Signs Temp Pulse Resp BP Pulse Ox 04/04/18 06:00 99 H 20 148/83 97 04/04/18 05:00 99 F 106 H 18 139/92 H 100 04/04/18 04:00 104 H 18 140/91 H 96 Intake and Output (Last 8hrs): Intake & Output 04/03/18 04/04/18 04/04/18 22:59 06:59 14:59 Intake Total 250 2256 Output Total 302 300 Balance -52 1956 Weight 141 lb 141 lb Intake: IV 22 Intake, IV Amount 250 2024 Left Forearm 100 800 Left Wrist 150 1210 Right Wrist 14 Oral 210 Output: Urine 300 300 Urine, Voided 300 300 Urine/Stool Mix 2 Other: Voiding Method Incontinent - Medications Active Medications: Active Medications Generic Name Dose Route Start Last Admin Trade Name Freq PRN Reason Stop Dose Admin Chlordiazepoxide 25 mg 04/04/18 00:30 04/04/18 05:36 Librium PO Not Given Q8 LUCILA Dextrose 0 ml 04/03/18 15:21 Dextrose 50% Inj IV STAT PRN Hypoglycemia Protocol Protocol Dextrose 0 gm 04/03/18 15:21 Glutose 15 PO ONCE PRN Hypoglycemia Protocol Protocol Enoxaparin Sodium 40 mg 04/04/18 10:00 Lovenox SC DAILY LUCILA Glucagon 0 mg 04/03/18 15:21 Glucagen Diagnostic Kit IM STAT PRN Hypoglycemia Protocol Protocol Dextrose 1,000 mls @ 0 mls/hr 04/03/18 15:21 Dextrose 5% In Water 1000 Ml IV .Q0M PRN Hypoglycemia Protocol Protocol Per Protocol Folic Acid 1 mg/ Sodium 100.2 mls @ 60 mls/hr 04/04/18 10:00 Chloride IV DAILY LUCILA Potassium Chloride 20 meq/ 1,010 mls @ 150 mls/hr 04/03/18 18:15 04/04/18 00:02 Dextrose/Sodium Chloride IV 150 mls/hr .[id number] LUCILA Administration Insulin Human Regular 100 unit 100 mls @ 7 mls/hr 04/03/18 23:30 04/04/18 05:31 / Sodium Chloride IV 0 unit/hr .[id number] LUCILA 0 mls/hr Titration Protocol 7 UNIT/HR Potassium Phosphate 15 mmole/ 255 mls @ 42.5 mls/hr 04/04/18 07:21 Sodium Chloride IVPB 04/04/18 13:20 ONCE ONE Insulin Glargine 10 unit 04/03/18 23:00 04/03/18 23:59 Lantus SC 10 units HS LUCILA Administration Lorazepam 1 mg 04/03/18 17:48 Ativan IVP Q4H PRN Symptoms of alcohol withdrawl Multivitamins/Vitamin C 5 ml 04/04/18 10:00 Multi-Delyn Liquid PO DAILY LUCILA Oxycodone/Acetaminophen 1 tab 04/04/18 00:20 04/04/18 04:46 Percocet 5/325 Mg Tab PO 04/07/18 00:21 1 tab Q6H PRN Administration Pain, moderate (4-7) - Patient Studies Lab Studies: Lab Studies 04/04/18 04/04/18 04/04/18 Range/Units 06:24 05:53 05:53 WBC 10.1 (4.8-10.8) K/uL RBC 4.01 L (4.40-5.90) Mil/uL Hgb 12.4 D (12.0-18.0) g/dL Hct 35.8 (35.0-51.0) % MCV 89.1 D (80.0-94.0) fL MCH 30.9 (27.0-31.0) pg MCHC 34.7 (33.0-37.0) g/dL RDW 13.7 (11.5-14.5) % Plt Count 98 L D (130-400) K/uL MPV 8.0 (7.2-11.7) fL Neut % (Auto) 78.8 H (50.0-75.0) % Lymph % (Auto) 16.7 L (20.0-40.0) % Posey % (Auto) 3.6 (0.0-10.0) % Eos % (Auto) 0.1 (0.0-4.0) % Baso % (Auto) 0.8 (0.0-2.0) % Neut # (Auto) 7.9 H (1.8-7.0) K/uL Lymph # (Auto) 1.7 (1.0-4.3) K/uL Posey # (Auto) 0.4 (0.0-0.8) K/uL Eos # (Auto) 0.0 (0.0-0.7) K/uL Baso # (Auto) 0.1 (0.0-0.2) K/uL PT (9.7-12.2) SECONDS INR APTT (21-34) SECONDS Puncture Site pCO2 (35-45) mm/Hg pO2 (80-100) mm/Hg HCO3 (21-28) mmol/L ABG pH (7.35-7.45) ABG Total CO2 (22-28) mmol/L ABG O2 Saturation (95-98) % ABG Base Excess (-2.0-3.0) mmol/L ABG Hemoglobin (11.7-17.4) g/dL ABG Carboxyhemoglobin (0.5-1.5) % POC ABG HHb (Measured) (0.0-5.0) % ABG Methemoglobin (0.0-3.0) % Nathaniel Test A-a O2 Difference mm/Hg Respiratory Index Hgb O2 Saturation (95.0-98.0) % FiO2 % Sodium 131 L (132-148) mmol/L Potassium 3.5 L (3.6-5.2) mmol/L Chloride 96 L (98-107) mmol/L Carbon Dioxide 17 L (22-30) mmol/L Anion Gap 21 H (10-20) BUN 14 (9-20) mg/dL Creatinine 0.8 (0.8-1.5) mg/dL Est GFR ( Amer) > 60 Est GFR (Non-Af Amer) > 60 POC Glucose (mg/dL) 158 H (65-110) mg/dL Random Glucose 124 H (75-110) mg/dL Calcium 7.7 L (8.6-10.4) mg/dl Phosphorus 1.3 L (2.5-4.5) mg/dL Magnesium 2.2 (1.6-2.3) mg/dL Total Bilirubin 0.8 (0.2-1.3) mg/dL AST 57 (17-59) U/L ALT 43 (21-72) U/L Alkaline Phosphatase 97 (38-126) U/L Troponin I (0.00-0.120) ng/mL Total Protein 6.6 (6.3-8.3) g/dL Albumin 3.9 (3.5-5.0) g/dL Globulin 2.7 (2.2-3.9) gm/dL Albumin/Globulin Ratio 1.5 (1.0-2.1) Triglycerides (0-149) mg/dL Cholesterol (0-199) mg/dL LDL Cholesterol Direct (0-129) mg/dL HDL Cholesterol (30-70) mg/dL Lipase (23-300) U/L Urine Color (YELLOW) Urine Clarity (Clear) Urine pH (5.0-8.0) Ur Specific Carroll (1.003-1.030) Urine Protein (NEGATIVE) mg/dL Urine Glucose (UA) (Normal) mg/dL Urine Ketones (NEGATIVE) mg/dL Urine Blood (NEGATIVE) Urine Nitrate (NEGATIVE) Urine Bilirubin (NEGATIVE) Urine Urobilinogen (0.2-1.0) mg/dL Ur Leukocyte Esterase (Negative) Mando/uL Urine WBC (Auto) (0-5) /hpf Urine RBC (Auto) (0-3) /hpf Salicylates mg/dL 1 Urine Opiates Screen (NEGATIVE) Urine Methadone Screen (NEGATIVE) Acetaminophen (10.0-30.0) ug/mL Ur Barbiturates Screen (NEGATIVE) Ur Phencyclidine Scrn (NEGATIVE) Ur Amphetamines Screen (NEGATIVE) U Benzodiazepines Scrn (NEGATIVE) U Oth Cocaine Metabols (NEGATIVE) U Cannabinoids Screen (NEGATIVE) Alcohol, Quantitative (0-10) mg/dl 04/04/18 04/04/18 04/04/18 Range/Units 05:28 04:28 03:29 WBC (4.8-10.8) K/uL RBC (4.40-5.90) Mil/uL Hgb (12.0-18.0) g/dL Hct (35.0-51.0) % MCV (80.0-94.0) fL MCH (27.0-31.0) pg MCHC (33.0-37.0) g/dL RDW (11.5-14.5) % Plt Count (130-400) K/uL MPV (7.2-11.7) fL Neut % (Auto) (50.0-75.0) % Lymph % (Auto) (20.0-40.0) % Posey % (Auto) (0.0-10.0) % Eos % (Auto) (0.0-4.0) % Baso % (Auto) (0.0-2.0) % Neut # (Auto) (1.8-7.0) K/uL Lymph # (Auto) (1.0-4.3) K/uL Posey # (Auto) (0.0-0.8) K/uL Eos # (Auto) (0.0-0.7) K/uL Baso # (Auto) (0.0-0.2) K/uL PT (9.7-12.2) SECONDS INR APTT (21-34) SECONDS Puncture Site pCO2 (35-45) mm/Hg pO2 (80-100) mm/Hg HCO3 (21-28) mmol/L ABG pH (7.35-7.45) ABG Total CO2 (22-28) mmol/L ABG O2 Saturation (95-98) % ABG Base Excess (-2.0-3.0) mmol/L ABG Hemoglobin (11.7-17.4) g/dL ABG Carboxyhemoglobin (0.5-1.5) % POC ABG HHb (Measured) (0.0-5.0) % ABG Methemoglobin (0.0-3.0) % Nathaniel Test A-a O2 Difference mm/Hg Respiratory Index Hgb O2 Saturation (95.0-98.0) % FiO2 % Sodium (132-148) mmol/L Potassium (3.6-5.2) mmol/L Chloride (98-107) mmol/L Carbon Dioxide (22-30) mmol/L Anion Gap (10-20) BUN (9-20) mg/dL Creatinine (0.8-1.5) mg/dL Est GFR ( Amer) Est GFR (Non-Af Amer) POC Glucose (mg/dL) 128 H 154 H 196 H (65-110) mg/dL Random Glucose (75-110) mg/dL Calcium (8.6-10.4) mg/dl Phosphorus (2.5-4.5) mg/dL Magnesium (1.6-2.3) mg/dL Total Bilirubin (0.2-1.3) mg/dL AST (17-59) U/L ALT (21-72) U/L Alkaline Phosphatase (38-126) U/L Troponin I (0.00-0.120) ng/mL Total Protein (6.3-8.3) g/dL Albumin (3.5-5.0) g/dL Globulin (2.2-3.9) gm/dL Albumin/Globulin Ratio (1.0-2.1) Triglycerides (0-149) mg/dL Cholesterol (0-199) mg/dL LDL Cholesterol Direct (0-129) mg/dL HDL Cholesterol (30-70) mg/dL Lipase (23-300) U/L Urine Color (YELLOW) Urine Clarity (Clear) Urine pH (5.0-8.0) Ur Specific Carroll (1.003-1.030) Urine Protein (NEGATIVE) mg/dL Urine Glucose (UA) (Normal) mg/dL Urine Ketones (NEGATIVE) mg/dL Urine Blood (NEGATIVE) Urine Nitrate (NEGATIVE) Urine Bilirubin (NEGATIVE) Urine Urobilinogen (0.2-1.0) mg/dL Ur Leukocyte Esterase (Negative) Mando/uL Urine WBC (Auto) (0-5) /hpf Urine RBC (Auto) (0-3) /hpf Salicylates mg/dL 1 Urine Opiates Screen (NEGATIVE) Urine Methadone Screen (NEGATIVE) Acetaminophen (10.0-30.0) ug/mL Ur Barbiturates Screen (NEGATIVE) Ur Phencyclidine Scrn (NEGATIVE) Ur Amphetamines Screen (NEGATIVE) U Benzodiazepines Scrn (NEGATIVE) U Oth Cocaine Metabols (NEGATIVE) U Cannabinoids Screen (NEGATIVE) Alcohol, Quantitative (0-10) mg/dl 04/04/18 04/04/18 04/04/18 Range/Units 02:21 01:57 01:29 WBC (4.8-10.8) K/uL RBC (4.40-5.90) Mil/uL Hgb (12.0-18.0) g/dL Hct (35.0-51.0) % MCV (80.0-94.0) fL MCH (27.0-31.0) pg MCHC (33.0-37.0) g/dL RDW (11.5-14.5) % Plt Count (130-400) K/uL MPV (7.2-11.7) fL Neut % (Auto) (50.0-75.0) % Lymph % (Auto) (20.0-40.0) % Posey % (Auto) (0.0-10.0) % Eos % (Auto) (0.0-4.0) % Baso % (Auto) (0.0-2.0) % Neut # (Auto) (1.8-7.0) K/uL Lymph # (Auto) (1.0-4.3) K/uL Posey # (Auto) (0.0-0.8) K/uL Eos # (Auto) (0.0-0.7) K/uL Baso # (Auto) (0.0-0.2) K/uL PT (9.7-12.2) SECONDS INR APTT (21-34) SECONDS Puncture Site pCO2 (35-45) mm/Hg pO2 (80-100) mm/Hg HCO3 (21-28) mmol/L ABG pH (7.35-7.45) ABG Total CO2 (22-28) mmol/L ABG O2 Saturation (95-98) % ABG Base Excess (-2.0-3.0) mmol/L ABG Hemoglobin (11.7-17.4) g/dL ABG Carboxyhemoglobin (0.5-1.5) % POC ABG HHb (Measured) (0.0-5.0) % ABG Methemoglobin (0.0-3.0) % Nathaniel Test A-a O2 Difference mm/Hg Respiratory Index Hgb O2 Saturation (95.0-98.0) % FiO2 % Sodium 130 L (132-148) mmol/L Potassium 3.6 (3.6-5.2) mmol/L Chloride 92 L (98-107) mmol/L Carbon Dioxide 17 L (22-30) mmol/L Anion Gap 25 H (10-20) BUN 18 (9-20) mg/dL Creatinine 0.8 (0.8-1.5) mg/dL Est GFR ( Amer) > 60 Est GFR (Non-Af Amer) > 60 POC Glucose (mg/dL) 101 116 H (65-110) mg/dL Random Glucose 72 L (75-110) mg/dL Calcium 7.6 L (8.6-10.4) mg/dl Phosphorus (2.5-4.5) mg/dL Magnesium (1.6-2.3) mg/dL Total Bilirubin (0.2-1.3) mg/dL AST (17-59) U/L ALT (21-72) U/L Alkaline Phosphatase (38-126) U/L Troponin I (0.00-0.120) ng/mL Total Protein (6.3-8.3) g/dL Albumin (3.5-5.0) g/dL Globulin (2.2-3.9) gm/dL Albumin/Globulin Ratio (1.0-2.1) Triglycerides (0-149) mg/dL Cholesterol (0-199) mg/dL LDL Cholesterol Direct (0-129) mg/dL HDL Cholesterol (30-70) mg/dL Lipase (23-300) U/L Urine Color (YELLOW) Urine Clarity (Clear) Urine pH (5.0-8.0) Ur Specific Carroll (1.003-1.030) Urine Protein (NEGATIVE) mg/dL Urine Glucose (UA) (Normal) mg/dL Urine Ketones (NEGATIVE) mg/dL Urine Blood (NEGATIVE) Urine Nitrate (NEGATIVE) Urine Bilirubin (NEGATIVE) Urine Urobilinogen (0.2-1.0) mg/dL Ur Leukocyte Esterase (Negative) Mando/uL Urine WBC (Auto) (0-5) /hpf Urine RBC (Auto) (0-3) /hpf Salicylates mg/dL 1 Urine Opiates Screen (NEGATIVE) Urine Methadone Screen (NEGATIVE) Acetaminophen (10.0-30.0) ug/mL Ur Barbiturates Screen (NEGATIVE) Ur Phencyclidine Scrn (NEGATIVE) Ur Amphetamines Screen (NEGATIVE) U Benzodiazepines Scrn (NEGATIVE) U Oth Cocaine Metabols (NEGATIVE) U Cannabinoids Screen (NEGATIVE) Alcohol, Quantitative (0-10) mg/dl 04/04/18 04/03/18 04/03/18 Range/Units 00:30 23:27 22:42 WBC (4.8-10.8) K/uL RBC (4.40-5.90) Mil/uL Hgb (12.0-18.0) g/dL Hct (35.0-51.0) % MCV (80.0-94.0) fL MCH (27.0-31.0) pg MCHC (33.0-37.0) g/dL RDW (11.5-14.5) % Plt Count (130-400) K/uL MPV (7.2-11.7) fL Neut % (Auto) (50.0-75.0) % Lymph % (Auto) (20.0-40.0) % Posey % (Auto) (0.0-10.0) % Eos % (Auto) (0.0-4.0) % Baso % (Auto) (0.0-2.0) % Neut # (Auto) (1.8-7.0) K/uL Lymph # (Auto) (1.0-4.3) K/uL Posey # (Auto) (0.0-0.8) K/uL Eos # (Auto) (0.0-0.7) K/uL Baso # (Auto) (0.0-0.2) K/uL PT (9.7-12.2) SECONDS INR APTT (21-34) SECONDS Puncture Site pCO2 (35-45) mm/Hg pO2 (80-100) mm/Hg HCO3 (21-28) mmol/L ABG pH (7.35-7.45) ABG Total CO2 (22-28) mmol/L ABG O2 Saturation (95-98) % ABG Base Excess (-2.0-3.0) mmol/L ABG Hemoglobin (11.7-17.4) g/dL ABG Carboxyhemoglobin (0.5-1.5) % POC ABG HHb (Measured) (0.0-5.0) % ABG Methemoglobin (0.0-3.0) % Nathaniel Test A-a O2 Difference mm/Hg Respiratory Index Hgb O2 Saturation (95.0-98.0) % FiO2 % Sodium (132-148) mmol/L Potassium (3.6-5.2) mmol/L Chloride (98-107) mmol/L Carbon Dioxide (22-30) mmol/L Anion Gap (10-20) BUN (9-20) mg/dL Creatinine (0.8-1.5) mg/dL Est GFR ( Amer) Est GFR (Non-Af Amer) POC Glucose (mg/dL) 159 H 219 H 207 H (65-110) mg/dL Random Glucose (75-110) mg/dL Calcium (8.6-10.4) mg/dl Phosphorus (2.5-4.5) mg/dL Magnesium (1.6-2.3) mg/dL Total Bilirubin (0.2-1.3) mg/dL AST (17-59) U/L ALT (21-72) U/L Alkaline Phosphatase (38-126) U/L Troponin I (0.00-0.120) ng/mL Total Protein (6.3-8.3) g/dL Albumin (3.5-5.0) g/dL Globulin (2.2-3.9) gm/dL Albumin/Globulin Ratio (1.0-2.1) Triglycerides (0-149) mg/dL Cholesterol (0-199) mg/dL LDL Cholesterol Direct (0-129) mg/dL HDL Cholesterol (30-70) mg/dL Lipase (23-300) U/L Urine Color (YELLOW) Urine Clarity (Clear) Urine pH (5.0-8.0) Ur Specific Carroll (1.003-1.030) Urine Protein (NEGATIVE) mg/dL Urine Glucose (UA) (Normal) mg/dL Urine Ketones (NEGATIVE) mg/dL Urine Blood (NEGATIVE) Urine Nitrate (NEGATIVE) Urine Bilirubin (NEGATIVE) Urine Urobilinogen (0.2-1.0) mg/dL Ur Leukocyte Esterase (Negative) Mando/uL Urine WBC (Auto) (0-5) /hpf Urine RBC (Auto) (0-3) /hpf Salicylates mg/dL 1 Urine Opiates Screen (NEGATIVE) Urine Methadone Screen (NEGATIVE) Acetaminophen (10.0-30.0) ug/mL Ur Barbiturates Screen (NEGATIVE) Ur Phencyclidine Scrn (NEGATIVE) Ur Amphetamines Screen (NEGATIVE) U Benzodiazepines Scrn (NEGATIVE) U Oth Cocaine Metabols (NEGATIVE) U Cannabinoids Screen (NEGATIVE) Alcohol, Quantitative (0-10) mg/dl 04/03/18 04/03/18 04/03/18 Range/Units 21:40 19:22 16:25 WBC (4.8-10.8) K/uL RBC (4.40-5.90) Mil/uL Hgb (12.0-18.0) g/dL Hct (35.0-51.0) % MCV (80.0-94.0) fL MCH (27.0-31.0) pg MCHC (33.0-37.0) g/dL RDW (11.5-14.5) % Plt Count (130-400) K/uL MPV (7.2-11.7) fL Neut % (Auto) (50.0-75.0) % Lymph % (Auto) (20.0-40.0) % Posey % (Auto) (0.0-10.0) % Eos % (Auto) (0.0-4.0) % Baso % (Auto) (0.0-2.0) % Neut # (Auto) (1.8-7.0) K/uL Lymph # (Auto) (1.0-4.3) K/uL Posey # (Auto) (0.0-0.8) K/uL Eos # (Auto) (0.0-0.7) K/uL Baso # (Auto) (0.0-0.2) K/uL PT (9.7-12.2) SECONDS INR APTT (21-34) SECONDS Puncture Site pCO2 (35-45) mm/Hg pO2 (80-100) mm/Hg HCO3 (21-28) mmol/L ABG pH (7.35-7.45) ABG Total CO2 (22-28) mmol/L ABG O2 Saturation (95-98) % ABG Base Excess (-2.0-3.0) mmol/L ABG Hemoglobin (11.7-17.4) g/dL ABG Carboxyhemoglobin (0.5-1.5) % POC ABG HHb (Measured) (0.0-5.0) % ABG Methemoglobin (0.0-3.0) % Nathaniel Test A-a O2 Difference mm/Hg Respiratory Index Hgb O2 Saturation (95.0-98.0) % FiO2 % Sodium 126 L (132-148) mmol/L Potassium 4.4 (3.6-5.2) mmol/L Chloride 82 L D (98-107) mmol/L Carbon Dioxide 17 L (22-30) mmol/L Anion Gap 31 H (10-20) BUN 21 H (9-20) mg/dL Creatinine 1.0 (0.8-1.5) mg/dL Est GFR ( Amer) > 60 Est GFR (Non-Af Amer) > 60 POC Glucose (mg/dL) 187 H (65-110) mg/dL Random Glucose 127 H (75-110) mg/dL Calcium 7.7 L (8.6-10.4) mg/dl Phosphorus (2.5-4.5) mg/dL Magnesium (1.6-2.3) mg/dL Total Bilirubin 1.1 (0.2-1.3) mg/dL AST 124 H D (17-59) U/L ALT 61 (21-72) U/L Alkaline Phosphatase 102 (38-126) U/L Troponin I (0.00-0.120) ng/mL Total Protein 7.3 (6.3-8.3) g/dL Albumin 4.5 (3.5-5.0) g/dL Globulin 2.9 (2.2-3.9) gm/dL Albumin/Globulin Ratio 1.6 (1.0-2.1) Triglycerides 353 H (0-149) mg/dL Cholesterol 270 H (0-199) mg/dL LDL Cholesterol Direct 141 H (0-129) mg/dL HDL Cholesterol 66 (30-70) mg/dL Lipase 1960 H (23-300) U/L Urine Color (YELLOW) Urine Clarity (Clear) Urine pH (5.0-8.0) Ur Specific Carroll (1.003-1.030) Urine Protein (NEGATIVE) mg/dL Urine Glucose (UA) (Normal) mg/dL Urine Ketones (NEGATIVE) mg/dL Urine Blood (NEGATIVE) Urine Nitrate (NEGATIVE) Urine Bilirubin (NEGATIVE) Urine Urobilinogen (0.2-1.0) mg/dL Ur Leukocyte Esterase (Negative) Mando/uL Urine WBC (Auto) (0-5) /hpf Urine RBC (Auto) (0-3) /hpf Salicylates mg/dL 1 Urine Opiates Screen (NEGATIVE) Urine Methadone Screen (NEGATIVE) Acetaminophen (10.0-30.0) ug/mL Ur Barbiturates Screen (NEGATIVE) Ur Phencyclidine Scrn (NEGATIVE) Ur Amphetamines Screen (NEGATIVE) U Benzodiazepines Scrn (NEGATIVE) U Oth Cocaine Metabols (NEGATIVE) U Cannabinoids Screen (NEGATIVE) Alcohol, Quantitative (0-10) mg/dl 04/03/18 04/03/18 04/03/18 Range/Units 16:10 14:44 14:44 WBC (4.8-10.8) K/uL RBC (4.40-5.90) Mil/uL Hgb (12.0-18.0) g/dL Hct (35.0-51.0) % MCV (80.0-94.0) fL MCH (27.0-31.0) pg MCHC (33.0-37.0) g/dL RDW (11.5-14.5) % Plt Count (130-400) K/uL MPV (7.2-11.7) fL Neut % (Auto) (50.0-75.0) % Lymph % (Auto) (20.0-40.0) % Posey % (Auto) (0.0-10.0) % Eos % (Auto) (0.0-4.0) % Baso % (Auto) (0.0-2.0) % Neut # (Auto) (1.8-7.0) K/uL Lymph # (Auto) (1.0-4.3) K/uL Posey # (Auto) (0.0-0.8) K/uL Eos # (Auto) (0.0-0.7) K/uL Baso # (Auto) (0.0-0.2) K/uL PT (9.7-12.2) SECONDS INR APTT (21-34) SECONDS Puncture Site Rradial pCO2 24 L (35-45) mm/Hg pO2 62 L (80-100) mm/Hg HCO3 18.5 L (21-28) mmol/L ABG pH 7.40 (7.35-7.45) ABG Total CO2 15.6 L (22-28) mmol/L ABG O2 Saturation 93.2 L (95-98) % ABG Base Excess -7.9 L (-2.0-3.0) mmol/L ABG Hemoglobin 14.3 (11.7-17.4) g/dL ABG Carboxyhemoglobin 2.8 H (0.5-1.5) % POC ABG HHb (Measured) 6.5 H (0.0-5.0) % ABG Methemoglobin 1.3 (0.0-3.0) % Nathaniel Test Pos A-a O2 Difference 58.0 mm/Hg Respiratory Index 0.9 Hgb O2 Saturation 89.4 L (95.0-98.0) % FiO2 21.0 % Sodium (132-148) mmol/L Potassium (3.6-5.2) mmol/L Chloride (98-107) mmol/L Carbon Dioxide (22-30) mmol/L Anion Gap (10-20) BUN (9-20) mg/dL Creatinine (0.8-1.5) mg/dL Est GFR ( Amer) Est GFR (Non-Af Amer) POC Glucose (mg/dL) (65-110) mg/dL Random Glucose (75-110) mg/dL Calcium (8.6-10.4) mg/dl Phosphorus (2.5-4.5) mg/dL Magnesium (1.6-2.3) mg/dL Total Bilirubin (0.2-1.3) mg/dL AST (17-59) U/L ALT (21-72) U/L Alkaline Phosphatase (38-126) U/L Troponin I (0.00-0.120) ng/mL Total Protein (6.3-8.3) g/dL Albumin (3.5-5.0) g/dL Globulin (2.2-3.9) gm/dL Albumin/Globulin Ratio (1.0-2.1) Triglycerides (0-149) mg/dL Cholesterol (0-199) mg/dL LDL Cholesterol Direct (0-129) mg/dL HDL Cholesterol (30-70) mg/dL Lipase (23-300) U/L Urine Color Yellow (YELLOW) Urine Clarity Clear (Clear) Urine pH 5.0 (5.0-8.0) Ur Specific Carroll 1.017 (1.003-1.030) Urine Protein 1+ H (NEGATIVE) mg/dL Urine Glucose (UA) 3+ H (Normal) mg/dL Urine Ketones 2+ H (NEGATIVE) mg/dL Urine Blood 2+ H (NEGATIVE) Urine Nitrate Negative (NEGATIVE) Urine Bilirubin Negative (NEGATIVE) Urine Urobilinogen Normal (0.2-1.0) mg/dL Ur Leukocyte Esterase Neg (Negative) Mando/uL Urine WBC (Auto) 1 (0-5) /hpf Urine RBC (Auto) 15 H (0-3) /hpf Salicylates mg/dL 1 Urine Opiates Screen Negative (NEGATIVE) Urine Methadone Screen Negative (NEGATIVE) Acetaminophen (10.0-30.0) ug/mL Ur Barbiturates Screen Negative (NEGATIVE) Ur Phencyclidine Scrn Negative (NEGATIVE) Ur Amphetamines Screen Negative (NEGATIVE) U Benzodiazepines Scrn Negative (NEGATIVE) U Oth Cocaine Metabols Negative (NEGATIVE) U Cannabinoids Screen Negative (NEGATIVE) Alcohol, Quantitative (0-10) mg/dl 04/03/18 04/03/18 04/03/18 Range/Units 14:36 14:36 14:36 WBC (4.8-10.8) K/uL RBC (4.40-5.90) Mil/uL Hgb (12.0-18.0) g/dL Hct (35.0-51.0) % MCV (80.0-94.0) fL MCH (27.0-31.0) pg MCHC (33.0-37.0) g/dL RDW (11.5-14.5) % Plt Count (130-400) K/uL MPV (7.2-11.7) fL Neut % (Auto) (50.0-75.0) % Lymph % (Auto) (20.0-40.0) % Posey % (Auto) (0.0-10.0) % Eos % (Auto) (0.0-4.0) % Baso % (Auto) (0.0-2.0) % Neut # (Auto) (1.8-7.0) K/uL Lymph # (Auto) (1.0-4.3) K/uL Posey # (Auto) (0.0-0.8) K/uL Eos # (Auto) (0.0-0.7) K/uL Baso # (Auto) (0.0-0.2) K/uL PT 10.8 (9.7-12.2) SECONDS INR 1.0 APTT 26 (21-34) SECONDS Puncture Site pCO2 (35-45) mm/Hg pO2 (80-100) mm/Hg HCO3 (21-28) mmol/L ABG pH (7.35-7.45) ABG Total CO2 (22-28) mmol/L ABG O2 Saturation (95-98) % ABG Base Excess (-2.0-3.0) mmol/L ABG Hemoglobin (11.7-17.4) g/dL ABG Carboxyhemoglobin (0.5-1.5) % POC ABG HHb (Measured) (0.0-5.0) % ABG Methemoglobin (0.0-3.0) % Nathaniel Test A-a O2 Difference mm/Hg Respiratory Index Hgb O2 Saturation (95.0-98.0) % FiO2 % Sodium 119 L* (132-148) mmol/L Potassium 3.3 L (3.6-5.2) mmol/L Chloride 61 L D (98-107) mmol/L Carbon Dioxide 13 L (22-30) mmol/L Anion Gap 50 H (10-20) BUN 24 H (9-20) mg/dL Creatinine 1.7 H (0.8-1.5) mg/dL Est GFR ( Amer) 54 Est GFR (Non-Af Amer) 45 POC Glucose (mg/dL) (65-110) mg/dL Random Glucose 600 H* D (75-110) mg/dL Calcium 8.5 L (8.6-10.4) mg/dl Phosphorus 6.3 H (2.5-4.5) mg/dL Magnesium 2.3 (1.6-2.3) mg/dL Total Bilirubin 1.7 H (0.2-1.3) mg/dL AST 158 H D (17-59) U/L ALT 76 H (21-72) U/L Alkaline Phosphatase 163 H D (38-126) U/L Troponin I 0.0220 (0.00-0.120) ng/mL Total Protein 8.3 (6.3-8.3) g/dL Albumin 5.5 H D (3.5-5.0) g/dL Globulin 2.8 (2.2-3.9) gm/dL Albumin/Globulin Ratio 1.9 (1.0-2.1) Triglycerides (0-149) mg/dL Cholesterol (0-199) mg/dL LDL Cholesterol Direct (0-129) mg/dL HDL Cholesterol (30-70) mg/dL Lipase (23-300) U/L Urine Color (YELLOW) Urine Clarity (Clear) Urine pH (5.0-8.0) Ur Specific Carroll (1.003-1.030) Urine Protein (NEGATIVE) mg/dL Urine Glucose (UA) (Normal) mg/dL Urine Ketones (NEGATIVE) mg/dL Urine Blood (NEGATIVE) Urine Nitrate (NEGATIVE) Urine Bilirubin (NEGATIVE) Urine Urobilinogen (0.2-1.0) mg/dL Ur Leukocyte Esterase (Negative) Mando/uL Urine WBC (Auto) (0-5) /hpf Urine RBC (Auto) (0-3) /hpf Salicylates < 1.0 mg/dL 1 Urine Opiates Screen (NEGATIVE) Urine Methadone Screen (NEGATIVE) Acetaminophen < 10.0 L (10.0-30.0) ug/mL Ur Barbiturates Screen (NEGATIVE) Ur Phencyclidine Scrn (NEGATIVE) Ur Amphetamines Screen (NEGATIVE) U Benzodiazepines Scrn (NEGATIVE) U Oth Cocaine Metabols (NEGATIVE) U Cannabinoids Screen (NEGATIVE) Alcohol, Quantitative < 10 (0-10) mg/dl 04/03/18 04/03/18 Range/Units 14:36 14:17 WBC 12.3 H D (4.8-10.8) K/uL RBC 4.88 (4.40-5.90) Mil/uL Hgb 15.2 D (12.0-18.0) g/dL Hct 44.9 (35.0-51.0) % MCV 92.0 (80.0-94.0) fL MCH 31.2 H (27.0-31.0) pg MCHC 33.9 (33.0-37.0) g/dL RDW 14.0 (11.5-14.5) % Plt Count 192 (130-400) K/uL MPV 9.1 (7.2-11.7) fL Neut % (Auto) 82.7 H (50.0-75.0) % Lymph % (Auto) 12.4 L (20.0-40.0) % Posey % (Auto) 4.4 (0.0-10.0) % Eos % (Auto) 0.0 (0.0-4.0) % Baso % (Auto) 0.5 (0.0-2.0) % Neut # (Auto) 10.2 H (1.8-7.0) K/uL Lymph # (Auto) 1.5 (1.0-4.3) K/uL Posey # (Auto) 0.5 (0.0-0.8) K/uL Eos # (Auto) 0.0 (0.0-0.7) K/uL Baso # (Auto) 0.1 (0.0-0.2) K/uL PT (9.7-12.2) SECONDS INR APTT (21-34) SECONDS Puncture Site pCO2 (35-45) mm/Hg pO2 (80-100) mm/Hg HCO3 (21-28) mmol/L ABG pH (7.35-7.45) ABG Total CO2 (22-28) mmol/L ABG O2 Saturation (95-98) % ABG Base Excess (-2.0-3.0) mmol/L ABG Hemoglobin (11.7-17.4) g/dL ABG Carboxyhemoglobin (0.5-1.5) % POC ABG HHb (Measured) (0.0-5.0) % ABG Methemoglobin (0.0-3.0) % Nathaniel Test A-a O2 Difference mm/Hg Respiratory Index Hgb O2 Saturation (95.0-98.0) % FiO2 % Sodium (132-148) mmol/L Potassium (3.6-5.2) mmol/L Chloride (98-107) mmol/L Carbon Dioxide (22-30) mmol/L Anion Gap (10-20) BUN (9-20) mg/dL Creatinine (0.8-1.5) mg/dL Est GFR ( Amer) Est GFR (Non-Af Amer) POC Glucose (mg/dL) > 500 H* (65-110) mg/dL Random Glucose (75-110) mg/dL Calcium (8.6-10.4) mg/dl Phosphorus (2.5-4.5) mg/dL Magnesium (1.6-2.3) mg/dL Total Bilirubin (0.2-1.3) mg/dL AST (17-59) U/L ALT (21-72) U/L Alkaline Phosphatase (38-126) U/L Troponin I (0.00-0.120) ng/mL Total Protein (6.3-8.3) g/dL Albumin (3.5-5.0) g/dL Globulin (2.2-3.9) gm/dL Albumin/Globulin Ratio (1.0-2.1) Triglycerides (0-149) mg/dL Cholesterol (0-199) mg/dL LDL Cholesterol Direct (0-129) mg/dL HDL Cholesterol (30-70) mg/dL Lipase (23-300) U/L Urine Color (YELLOW) Urine Clarity (Clear) Urine pH (5.0-8.0) Ur Specific Carroll (1.003-1.030) Urine Protein (NEGATIVE) mg/dL Urine Glucose (UA) (Normal) mg/dL Urine Ketones (NEGATIVE) mg/dL Urine Blood (NEGATIVE) Urine Nitrate (NEGATIVE) Urine Bilirubin (NEGATIVE) Urine Urobilinogen (0.2-1.0) mg/dL Ur Leukocyte Esterase (Negative) Mando/uL Urine WBC (Auto) (0-5) /hpf Urine RBC (Auto) (0-3) /hpf Salicylates mg/dL 1 Urine Opiates Screen (NEGATIVE) Urine Methadone Screen (NEGATIVE) Acetaminophen (10.0-30.0) ug/mL Ur Barbiturates Screen (NEGATIVE) Ur Phencyclidine Scrn (NEGATIVE) Ur Amphetamines Screen (NEGATIVE) U Benzodiazepines Scrn (NEGATIVE) U Oth Cocaine Metabols (NEGATIVE) U Cannabinoids Screen (NEGATIVE) Alcohol, Quantitative (0-10) mg/dl Laboratory Results - last 24 hr 04/03/18 04/03/18 04/03/18 14:17 14:36 14:36 WBC 12.3 H D RBC 4.88 Hgb 15.2 D Hct 44.9 MCV 92.0 MCH 31.2 H MCHC 33.9 RDW 14.0 Plt Count 192 MPV 9.1 Neut % (Auto) 82.7 H Lymph % (Auto) 12.4 L Posey % (Auto) 4.4 Eos % (Auto) 0.0 Baso % (Auto) 0.5 Neut # (Auto) 10.2 H Lymph # (Auto) 1.5 Posey # (Auto) 0.5 Eos # (Auto) 0.0 Baso # (Auto) 0.1 PT 10.8 INR 1.0 APTT 26 Puncture Site pCO2 pO2 HCO3 ABG pH ABG Total CO2 ABG O2 Saturation ABG Base Excess ABG Hemoglobin ABG Carboxyhemoglobin POC ABG HHb (Measured) ABG Methemoglobin Nathaniel Test A-a O2 Difference Respiratory Index Hgb O2 Saturation FiO2 Sodium Potassium Chloride Carbon Dioxide Anion Gap BUN Creatinine Est GFR ( Amer) Est GFR (Non-Af Amer) POC Glucose (mg/dL) > 500 H* Random Glucose Calcium Phosphorus Magnesium Total Bilirubin AST ALT Alkaline Phosphatase Troponin I Total Protein Albumin Globulin Albumin/Globulin Ratio Triglycerides Cholesterol LDL Cholesterol Direct HDL Cholesterol Lipase Urine Color Urine Clarity Urine pH Ur Specific Carroll Urine Protein Urine Glucose (UA) Urine Ketones Urine Blood Urine Nitrate Urine Bilirubin Urine Urobilinogen Ur Leukocyte Esterase Urine WBC (Auto) Urine RBC (Auto) Salicylates Urine Opiates Screen Urine Methadone Screen Acetaminophen Ur Barbiturates Screen Ur Phencyclidine Scrn Ur Amphetamines Screen U Benzodiazepines Scrn U Oth Cocaine Metabols U Cannabinoids Screen Alcohol, Quantitative 04/03/18 04/03/18 04/03/18 14:36 14:36 14:44 WBC RBC Hgb Hct MCV MCH MCHC RDW Plt Count MPV Neut % (Auto) Lymph % (Auto) Posey % (Auto) Eos % (Auto) Baso % (Auto) Neut # (Auto) Lymph # (Auto) Posey # (Auto) Eos # (Auto) Baso # (Auto) PT INR APTT Puncture Site pCO2 pO2 HCO3 ABG pH ABG Total CO2 ABG O2 Saturation ABG Base Excess ABG Hemoglobin ABG Carboxyhemoglobin POC ABG HHb (Measured) ABG Methemoglobin Nathaniel Test A-a O2 Difference Respiratory Index Hgb O2 Saturation FiO2 Sodium 119 L* Potassium 3.3 L Chloride 61 L D Carbon Dioxide 13 L Anion Gap 50 H BUN 24 H Creatinine 1.7 H Est GFR ( Amer) 54 Est GFR (Non-Af Amer) 45 POC Glucose (mg/dL) Random Glucose 600 H* D Calcium 8.5 L Phosphorus 6.3 H Magnesium 2.3 Total Bilirubin 1.7 H AST 158 H D ALT 76 H Alkaline Phosphatase 163 H D Troponin I 0.0220 Total Protein 8.3 Albumin 5.5 H D Globulin 2.8 Albumin/Globulin Ratio 1.9 Triglycerides Cholesterol LDL Cholesterol Direct HDL Cholesterol Lipase Urine Color Urine Clarity Urine pH Ur Specific Carroll Urine Protein Urine Glucose (UA) Urine Ketones Urine Blood Urine Nitrate Urine Bilirubin Urine Urobilinogen Ur Leukocyte Esterase Urine WBC (Auto) Urine RBC (Auto) Salicylates < 1.0 Urine Opiates Screen Negative Urine Methadone Screen Negative Acetaminophen < 10.0 L Ur Barbiturates Screen Negative Ur Phencyclidine Scrn Negative Ur Amphetamines Screen Negative U Benzodiazepines Scrn Negative U Oth Cocaine Metabols Negative U Cannabinoids Screen Negative Alcohol, Quantitative < 10 04/03/18 04/03/18 04/03/18 14:44 16:10 16:25 WBC RBC Hgb Hct MCV MCH MCHC RDW Plt Count MPV Neut % (Auto) Lymph % (Auto) Posey % (Auto) Eos % (Auto) Baso % (Auto) Neut # (Auto) Lymph # (Auto) Posey # (Auto) Eos # (Auto) Baso # (Auto) PT INR APTT Puncture Site Rradial pCO2 24 L pO2 62 L HCO3 18.5 L ABG pH 7.40 ABG Total CO2 15.6 L ABG O2 Saturation 93.2 L ABG Base Excess -7.9 L ABG Hemoglobin 14.3 ABG Carboxyhemoglobin 2.8 H POC ABG HHb (Measured) 6.5 H ABG Methemoglobin 1.3 Nathaniel Test Pos A-a O2 Difference 58.0 Respiratory Index 0.9 Hgb O2 Saturation 89.4 L FiO2 21.0 Sodium Potassium Chloride Carbon Dioxide Anion Gap BUN Creatinine Est GFR ( Amer) Est GFR (Non-Af Amer) POC Glucose (mg/dL) Random Glucose Calcium Phosphorus Magnesium Total Bilirubin AST ALT Alkaline Phosphatase Troponin I Total Protein Albumin Globulin Albumin/Globulin Ratio Triglycerides Cholesterol LDL Cholesterol Direct HDL Cholesterol Lipase 1960 H Urine Color Yellow Urine Clarity Clear Urine pH 5.0 Ur Specific Carroll 1.017 Urine Protein 1+ H Urine Glucose (UA) 3+ H Urine Ketones 2+ H Urine Blood 2+ H Urine Nitrate Negative Urine Bilirubin Negative Urine Urobilinogen Normal Ur Leukocyte Esterase Neg Urine WBC (Auto) 1 Urine RBC (Auto) 15 H Salicylates Urine Opiates Screen Urine Methadone Screen Acetaminophen Ur Barbiturates Screen Ur Phencyclidine Scrn Ur Amphetamines Screen U Benzodiazepines Scrn U Oth Cocaine Metabols U Cannabinoids Screen Alcohol, Quantitative 04/03/18 04/03/18 04/03/18 19:22 21:40 22:42 WBC RBC Hgb Hct MCV MCH MCHC RDW Plt Count MPV Neut % (Auto) Lymph % (Auto) Posey % (Auto) Eos % (Auto) Baso % (Auto) Neut # (Auto) Lymph # (Auto) Posey # (Auto) Eos # (Auto) Baso # (Auto) PT INR APTT Puncture Site pCO2 pO2 HCO3 ABG pH ABG Total CO2 ABG O2 Saturation ABG Base Excess ABG Hemoglobin ABG Carboxyhemoglobin POC ABG HHb (Measured) ABG Methemoglobin Nathaniel Test A-a O2 Difference Respiratory Index Hgb O2 Saturation FiO2 Sodium 126 L Potassium 4.4 Chloride 82 L D Carbon Dioxide 17 L Anion Gap 31 H BUN 21 H Creatinine 1.0 Est GFR ( Amer) > 60 Est GFR (Non-Af Amer) > 60 POC Glucose (mg/dL) 187 H 207 H Random Glucose 127 H Calcium 7.7 L Phosphorus Magnesium Total Bilirubin 1.1 AST 124 H D ALT 61 Alkaline Phosphatase 102 Troponin I Total Protein 7.3 Albumin 4.5 Globulin 2.9 Albumin/Globulin Ratio 1.6 Triglycerides 353 H Cholesterol 270 H LDL Cholesterol Direct 141 H HDL Cholesterol 66 Lipase Urine Color Urine Clarity Urine pH Ur Specific Carroll Urine Protein Urine Glucose (UA) Urine Ketones Urine Blood Urine Nitrate Urine Bilirubin Urine Urobilinogen Ur Leukocyte Esterase Urine WBC (Auto) Urine RBC (Auto) Salicylates Urine Opiates Screen Urine Methadone Screen Acetaminophen Ur Barbiturates Screen Ur Phencyclidine Scrn Ur Amphetamines Screen U Benzodiazepines Scrn U Oth Cocaine Metabols U Cannabinoids Screen Alcohol, Quantitative 04/03/18 04/04/18 04/04/18 23:27 00:30 01:29 WBC RBC Hgb Hct MCV MCH MCHC RDW Plt Count MPV Neut % (Auto) Lymph % (Auto) Posey % (Auto) Eos % (Auto) Baso % (Auto) Neut # (Auto) Lymph # (Auto) Posey # (Auto) Eos # (Auto) Baso # (Auto) PT INR APTT Puncture Site pCO2 pO2 HCO3 ABG pH ABG Total CO2 ABG O2 Saturation ABG Base Excess ABG Hemoglobin ABG Carboxyhemoglobin POC ABG HHb (Measured) ABG Methemoglobin Nathaniel Test A-a O2 Difference Respiratory Index Hgb O2 Saturation FiO2 Sodium Potassium Chloride Carbon Dioxide Anion Gap BUN Creatinine Est GFR ( Amer) Est GFR (Non-Af Amer) POC Glucose (mg/dL) 219 H 159 H 116 H Random Glucose Calcium Phosphorus Magnesium Total Bilirubin AST ALT Alkaline Phosphatase Troponin I Total Protein Albumin Globulin Albumin/Globulin Ratio Triglycerides Cholesterol LDL Cholesterol Direct HDL Cholesterol Lipase Urine Color Urine Clarity Urine pH Ur Specific [place] Urine Protein Urine Glucose (UA) Urine Ketones Urine Blood Urine Nitrate Urine Bilirubin Urine Urobilinogen Ur Leukocyte Esterase Urine WBC (Auto) Urine RBC (Auto) Salicylates Urine Opiates Screen Urine Methadone Screen Acetaminophen Ur Barbiturates Screen Ur Phencyclidine Scrn Ur Amphetamines Screen U Benzodiazepines Scrn U Oth Cocaine Metabols U Cannabinoids Screen Alcohol, Quantitative 04/04/18 04/04/18 04/04/18 01:57 02:21 03:29 WBC RBC Hgb Hct MCV MCH MCHC RDW Plt Count MPV Neut % (Auto) Lymph % (Auto) Posey % (Auto) Eos % (Auto) Baso % (Auto) Neut # (Auto) Lymph # (Auto) Posey # (Auto) Eos # (Auto) Baso # (Auto) PT INR APTT Puncture Site pCO2 pO2 HCO3 ABG pH ABG Total CO2 ABG O2 Saturation ABG Base Excess ABG Hemoglobin ABG Carboxyhemoglobin POC ABG HHb (Measured) ABG Methemoglobin Nathaniel Test A-a O2 Difference Respiratory Index Hgb O2 Saturation FiO2 Sodium 130 L Potassium 3.6 Chloride 92 L Carbon Dioxide 17 L Anion Gap 25 H BUN 18 Creatinine 0.8 Est GFR ( Amer) > 60 Est GFR (Non-Af Amer) > 60 POC Glucose (mg/dL) 101 196 H Random Glucose 72 L Calcium 7.6 L Phosphorus Magnesium Total Bilirubin AST ALT Alkaline Phosphatase Troponin I Total Protein Albumin Globulin Albumin/Globulin Ratio Triglycerides Cholesterol LDL Cholesterol Direct HDL Cholesterol Lipase Urine Color Urine Clarity Urine pH Ur Specific [place] Urine Protein Urine Glucose (UA) Urine Ketones Urine Blood Urine Nitrate Urine Bilirubin Urine Urobilinogen Ur Leukocyte Esterase Urine WBC (Auto) Urine RBC (Auto) Salicylates Urine Opiates Screen Urine Methadone Screen Acetaminophen Ur Barbiturates Screen Ur Phencyclidine Scrn Ur Amphetamines Screen U Benzodiazepines Scrn U Oth Cocaine Metabols U Cannabinoids Screen Alcohol, Quantitative 04/04/18 04/04/18 04/04/18 04:28 05:28 05:53 WBC 10.1 RBC 4.01 L Hgb 12.4 D Hct 35.8 MCV 89.1 D MCH 30.9 MCHC 34.7 RDW 13.7 Plt Count 98 L D MPV 8.0 Neut % (Auto) 78.8 H Lymph % (Auto) 16.7 L Posey % (Auto) 3.6 Eos % (Auto) 0.1 Baso % (Auto) 0.8 Neut # (Auto) 7.9 H Lymph # (Auto) 1.7 Posey # (Auto) 0.4 Eos # (Auto) 0.0 Baso # (Auto) 0.1 PT INR APTT Puncture Site pCO2 pO2 HCO3 ABG pH ABG Total CO2 ABG O2 Saturation ABG Base Excess ABG Hemoglobin ABG Carboxyhemoglobin POC ABG HHb (Measured) ABG Methemoglobin Nathaniel Test A-a O2 Difference Respiratory Index Hgb O2 Saturation FiO2 Sodium Potassium Chloride Carbon Dioxide Anion Gap BUN Creatinine Est GFR ( Amer) Est GFR (Non-Af Amer) POC Glucose (mg/dL) 154 H 128 H Random Glucose Calcium Phosphorus Magnesium Total Bilirubin AST ALT Alkaline Phosphatase Troponin I Total Protein Albumin Globulin Albumin/Globulin Ratio Triglycerides Cholesterol LDL Cholesterol Direct HDL Cholesterol Lipase Urine Color Urine Clarity Urine pH Ur Specific [place] Urine Protein Urine Glucose (UA) Urine Ketones Urine Blood Urine Nitrate Urine Bilirubin Urine Urobilinogen Ur Leukocyte Esterase Urine WBC (Auto) Urine RBC (Auto) Salicylates Urine Opiates Screen Urine Methadone Screen Acetaminophen Ur Barbiturates Screen Ur Phencyclidine Scrn Ur Amphetamines Screen U Benzodiazepines Scrn U Oth Cocaine Metabols U Cannabinoids Screen Alcohol, Quantitative 04/04/18 04/04/18 05:53 06:24 WBC RBC Hgb Hct MCV MCH MCHC RDW Plt Count MPV Neut % (Auto) Lymph % (Auto) Posey % (Auto) Eos % (Auto) Baso % (Auto) Neut # (Auto) Lymph # (Auto) Posey # (Auto) Eos # (Auto) Baso # (Auto) PT INR APTT Puncture Site pCO2 pO2 HCO3 ABG pH ABG Total CO2 ABG O2 Saturation ABG Base Excess ABG Hemoglobin ABG Carboxyhemoglobin POC ABG HHb (Measured) ABG Methemoglobin Nathaniel Test A-a O2 Difference Respiratory Index Hgb O2 Saturation FiO2 Sodium 131 L Potassium 3.5 L Chloride 96 L Carbon Dioxide 17 L Anion Gap 21 H BUN 14 Creatinine 0.8 Est GFR ( Amer) > 60 Est GFR (Non-Af Amer) > 60 POC Glucose (mg/dL) 158 H Random Glucose 124 H Calcium 7.7 L Phosphorus 1.3 L Magnesium 2.2 Total Bilirubin 0.8 AST 57 ALT 43 Alkaline Phosphatase 97 Troponin I Total Protein 6.6 Albumin 3.9 Globulin 2.7 Albumin/Globulin Ratio 1.5 Triglycerides Cholesterol LDL Cholesterol Direct HDL Cholesterol Lipase Urine Color Urine Clarity Urine pH Ur Specific [place] Urine Protein Urine Glucose (UA) Urine Ketones Urine Blood Urine Nitrate Urine Bilirubin Urine Urobilinogen Ur Leukocyte Esterase Urine WBC (Auto) Urine RBC (Auto) Salicylates Urine Opiates Screen Urine Methadone Screen Acetaminophen Ur Barbiturates Screen Ur Phencyclidine Scrn Ur Amphetamines Screen U Benzodiazepines Scrn U Oth Cocaine Metabols U Cannabinoids Screen Alcohol, Quantitative EKG/Cardiology Studies: Cardiology / EKG Studies 04/03/18 14:29 EKG [ELECTROCARDIOGRAM] Stat Comment: Mode Of Transportation: Reason For Exam: Seizure Fingerstick Blood Sugar Results: 219 Critical Care Progress Note - Nutrition Nutrition: Nutrition Category Date Time Status NPO Diet [DIET] Diets 04/03/18 Dinner Active Assessment/Plan - Assessment and Plan (Free Text) Assessment: Patient is a 42 year old male with PMH of alcohol abuse admitted to ICU for seizures, DKA, and alcohol withdrawal symptoms. Plan: Neuro: Seizures - Likely 2/2 alcohol withdrawal symptoms - Altered mental status - 6mg Ativan given in the ED - Neurochecks Q4 Alcohol withdrawal symtoms - Ativan 1mg IV Q4 PRN - Thiamine, folic acid, MV daily - CIWA protocol - Seizure protocol - Aspiration protocol Cardiovascular: Sinus tachycardia - EKG: Sinus tachycardia, no ST changes - Continue to monitor Respiratory: Tachypnea - Continue O2 nasal cannula - O2 sat: 100% on 2L O2 - Monitor for respiratory distress - CXR: No active disease GI: Rule out Acute pancreatitis - Lipase: 1960 - CT abdomen/pelvis (04/03): suspicious for enteritis. Moderate fatty liver. No evidence of pancreatitis, cholecystitis, or nephrolithiasis. - NPO - Lipid panel: Triglycerides 353, chol 270, LDL 141, HDL 66 Alcoholic liver disease - AST/ALT: 158/76 on admission - Hepatitis panel (03/10): negative Endo: DKA - Glucose level on admission: >600 - Anio gap today: 18 - Insulin drip - HbA1C (03/10): 12.3 - Accuchecks Q4H x 6 - Dextrose 5%/ 0.9%NS with potassium chloride @ 150mls/hr - Hypoglycemia protocol Renal: NORMA - Resolved - Pt given fluid bolus - Dextrose 5%/ 0.9%NS with potassium chloride @ 150mls/hr - Avoid nephrotoxins - Continue to monitor ID: Leukocytosis - Resolved - Patient afebrile - Continue to monitor Prophylaxis: - SCD's - Lovenox 40mg SC QD - GI prophylaxis not indicated Case discussed with Dr. Vivi Burton, PGY-1 <Luis Trinidad - Last Filed: 04/04/18 18:51> CCU Objective - Vital Signs / Intake & Output Vital Signs (Last 4 hours): Vital Signs Temp Pulse Resp BP Pulse Ox 04/04/18 12:00 98 F 99 H 20 124/80 99 Intake and Output (Last 8hrs): Intake & Output 04/04/18 04/04/18 04/04/18 06:59 14:59 22:59 Intake Total 2256 3010 Output Total 300 2000 Balance 195 1010 Weight 141 lb Intake: IV 22 Intake, IV Amount 2023 1250 Left Forearm 800 320 Left Wrist 1210 750 Right Wrist 14 180 Oral 210 1760 Output: Urine 300 500 Urine, Voided 300 500 Stool 1500 - Medications Active Medications: Active Medications Generic Name Dose Route Start Last Admin Trade Name Freq PRN Reason Stop Dose Admin Chlordiazepoxide 5 mg 04/04/18 10:16 04/04/18 10:51 Librium PO 5 mg Q8 PRN Administration Symptoms of alcohol withdrawl Dextrose 0 ml 04/03/18 15:21 Dextrose 50% Inj IV STAT PRN Hypoglycemia Protocol Protocol Dextrose 0 gm 04/03/18 15:21 Glutose 15 PO ONCE PRN Hypoglycemia Protocol Protocol Enoxaparin Sodium 40 mg 04/04/18 10:00 04/04/18 10:42 Lovenox SC Not Given DAILY LUCILA Folic Acid 1 mg 04/05/18 10:00 Folic Acid PO DAILY LUCILA Glucagon 0 mg 04/03/18 15:21 Glucagen Diagnostic Kit IM STAT PRN Hypoglycemia Protocol Protocol Dextrose 1,000 mls @ 0 mls/hr 04/03/18 15:21 Dextrose 5% In Water 1000 Ml IV .Q0M PRN Hypoglycemia Protocol Protocol Per Protocol Potassium Chloride 20 meq/ 1,010 mls @ 100 mls/hr 04/04/18 07:24 04/04/18 07:30 Dextrose/Sodium Chloride IV Not Given .Q10H6M LUCILA Insulin Glargine 10 unit 04/03/18 23:00 04/03/18 23:59 Lantus SC 10 units HS LUCILA Administration Insulin Human Regular 0 unit 04/04/18 08:30 04/04/18 12:00 Novolin R SC Not Given Q4H LUCILA Protocol Multivitamins/Vitamin C 5 ml 04/04/18 10:00 04/04/18 10:37 Multi-Delyn Liquid PO 5 ml DAILY LUCILA Administration Oxycodone/Acetaminophen 1 tab 04/04/18 00:20 04/04/18 10:33 Percocet 5/325 Mg Tab PO 04/07/18 00:21 1 tab Q6H PRN Administration Pain, moderate (4-7) Thiamine HCl 100 mg 04/05/18 10:00 Vitamin B1 Tab PO DAILY LUCILA - Patient Studies Lab Studies: Lab Studies 04/04/18 04/04/18 04/04/18 Range/Units 11:45 11:23 07:52 WBC (4.8-10.8) K/uL RBC (4.40-5.90) Mil/uL Hgb (12.0-18.0) g/dL Hct (35.0-51.0) % MCV (80.0-94.0) fL MCH (27.0-31.0) pg MCHC (33.0-37.0) g/dL RDW (11.5-14.5) % Plt Count (130-400) K/uL MPV (7.2-11.7) fL Neut % (Auto) (50.0-75.0) % Lymph % (Auto) (20.0-40.0) % Posey % (Auto) (0.0-10.0) % Eos % (Auto) (0.0-4.0) % Baso % (Auto) (0.0-2.0) % Neut # (Auto) (1.8-7.0) K/uL Lymph # (Auto) (1.0-4.3) K/uL Posey # (Auto) (0.0-0.8) K/uL Eos # (Auto) (0.0-0.7) K/uL Baso # (Auto) (0.0-0.2) K/uL Differential Comment Puncture Site pCO2 (35-45) mm/Hg pO2 (80-100) mm/Hg HCO3 (21-28) mmol/L ABG pH (7.35-7.45) ABG Total CO2 (22-28) mmol/L ABG O2 Saturation (95-98) % ABG Base Excess (-2.0-3.0) mmol/L ABG Hemoglobin (11.7-17.4) g/dL ABG Carboxyhemoglobin (0.5-1.5) % POC ABG HHb (Measured) (0.0-5.0) % ABG Methemoglobin (0.0-3.0) % Nathaniel Test A-a O2 Difference mm/Hg Respiratory Index Hgb O2 Saturation (95.0-98.0) % FiO2 % Sodium (132-148) mmol/L Potassium (3.6-5.2) mmol/L Chloride (98-107) mmol/L Carbon Dioxide (22-30) mmol/L Anion Gap (10-20) BUN (9-20) mg/dL Creatinine (0.8-1.5) mg/dL Est GFR ( Amer) Est GFR (Non-Af Amer) POC Glucose (mg/dL) 179 H 141 H (65-110) mg/dL Random Glucose (75-110) mg/dL Lactic Acid 1.6 (0.7-2.1) mmol/L Calcium (8.6-10.4) mg/dl Phosphorus (2.5-4.5) mg/dL Magnesium (1.6-2.3) mg/dL Total Bilirubin (0.2-1.3) mg/dL AST (17-59) U/L ALT (21-72) U/L Alkaline Phosphatase (38-126) U/L Total Protein (6.3-8.3) g/dL Albumin (3.5-5.0) g/dL Globulin (2.2-3.9) gm/dL Albumin/Globulin Ratio (1.0-2.1) Triglycerides (0-149) mg/dL Cholesterol (0-199) mg/dL LDL Cholesterol Direct (0-129) mg/dL HDL Cholesterol (30-70) mg/dL Lipase (23-300) U/L Urine Opiates Screen (NEGATIVE) Urine Methadone Screen (NEGATIVE) Ur Barbiturates Screen (NEGATIVE) Ur Phencyclidine Scrn (NEGATIVE) Ur Amphetamines Screen (NEGATIVE) U Benzodiazepines Scrn (NEGATIVE) U Oth Cocaine Metabols (NEGATIVE) U Cannabinoids Screen (NEGATIVE) Alcohol, Quantitative (0-10) mg/dl 04/04/18 04/04/18 04/04/18 Range/Units 06:24 05:53 05:53 WBC 10.1 (4.8-10.8) K/uL RBC 4.01 L (4.40-5.90) Mil/uL Hgb 12.4 D (12.0-18.0) g/dL Hct 35.8 (35.0-51.0) % MCV 89.1 D (80.0-94.0) fL MCH 30.9 (27.0-31.0) pg MCHC 34.7 (33.0-37.0) g/dL RDW 13.7 (11.5-14.5) % Plt Count 98 L D (130-400) K/uL MPV 8.0 (7.2-11.7) fL Neut % (Auto) 78.8 H (50.0-75.0) % Lymph % (Auto) 16.7 L (20.0-40.0) % Posey % (Auto) 3.6 (0.0-10.0) % Eos % (Auto) 0.1 (0.0-4.0) % Baso % (Auto) 0.8 (0.0-2.0) % Neut # (Auto) 7.9 H (1.8-7.0) K/uL Lymph # (Auto) 1.7 (1.0-4.3) K/uL Posey # (Auto) 0.4 (0.0-0.8) K/uL Eos # (Auto) 0.0 (0.0-0.7) K/uL Baso # (Auto) 0.1 (0.0-0.2) K/uL Differential Comment Puncture Site pCO2 (35-45) mm/Hg pO2 (80-100) mm/Hg HCO3 (21-28) mmol/L ABG pH (7.35-7.45) ABG Total CO2 (22-28) mmol/L ABG O2 Saturation (95-98) % ABG Base Excess (-2.0-3.0) mmol/L ABG Hemoglobin (11.7-17.4) g/dL ABG Carboxyhemoglobin (0.5-1.5) % POC ABG HHb (Measured) (0.0-5.0) % ABG Methemoglobin (0.0-3.0) % Nathaniel Test A-a O2 Difference mm/Hg Respiratory Index Hgb O2 Saturation (95.0-98.0) % FiO2 % Sodium 131 L (132-148) mmol/L Potassium 3.5 L (3.6-5.2) mmol/L Chloride 96 L (98-107) mmol/L Carbon Dioxide 17 L (22-30) mmol/L Anion Gap 21 H (10-20) BUN 14 (9-20) mg/dL Creatinine 0.8 (0.8-1.5) mg/dL Est GFR ( Amer) > 60 Est GFR (Non-Af Amer) > 60 POC Glucose (mg/dL) 158 H (65-110) mg/dL Random Glucose 124 H (75-110) mg/dL Lactic Acid (0.7-2.1) mmol/L Calcium 7.7 L (8.6-10.4) mg/dl Phosphorus 1.3 L (2.5-4.5) mg/dL Magnesium 2.2 (1.6-2.3) mg/dL Total Bilirubin 0.8 (0.2-1.3) mg/dL AST 57 (17-59) U/L ALT 43 (21-72) U/L Alkaline Phosphatase 97 (38-126) U/L Total Protein 6.6 (6.3-8.3) g/dL Albumin 3.9 (3.5-5.0) g/dL Globulin 2.7 (2.2-3.9) gm/dL Albumin/Globulin Ratio 1.5 (1.0-2.1) Triglycerides (0-149) mg/dL Cholesterol (0-199) mg/dL LDL Cholesterol Direct (0-129) mg/dL HDL Cholesterol (30-70) mg/dL Lipase (23-300) U/L Urine Opiates Screen (NEGATIVE) Urine Methadone Screen (NEGATIVE) Ur Barbiturates Screen (NEGATIVE) Ur Phencyclidine Scrn (NEGATIVE) Ur Amphetamines Screen (NEGATIVE) U Benzodiazepines Scrn (NEGATIVE) U Oth Cocaine Metabols (NEGATIVE) U Cannabinoids Screen (NEGATIVE) Alcohol, Quantitative (0-10) mg/dl 04/04/18 04/04/18 04/04/18 Range/Units 05:28 04:28 03:29 WBC (4.8-10.8) K/uL RBC (4.40-5.90) Mil/uL Hgb (12.0-18.0) g/dL Hct (35.0-51.0) % MCV (80.0-94.0) fL MCH (27.0-31.0) pg MCHC (33.0-37.0) g/dL RDW (11.5-14.5) % Plt Count (130-400) K/uL MPV (7.2-11.7) fL Neut % (Auto) (50.0-75.0) % Lymph % (Auto) (20.0-40.0) % Posey % (Auto) (0.0-10.0) % Eos % (Auto) (0.0-4.0) % Baso % (Auto) (0.0-2.0) % Neut # (Auto) (1.8-7.0) K/uL Lymph # (Auto) (1.0-4.3) K/uL Posey # (Auto) (0.0-0.8) K/uL Eos # (Auto) (0.0-0.7) K/uL Baso # (Auto) (0.0-0.2) K/uL Differential Comment Puncture Site pCO2 (35-45) mm/Hg pO2 (80-100) mm/Hg HCO3 (21-28) mmol/L ABG pH (7.35-7.45) ABG Total CO2 (22-28) mmol/L ABG O2 Saturation (95-98) % ABG Base Excess (-2.0-3.0) mmol/L ABG Hemoglobin (11.7-17.4) g/dL ABG Carboxyhemoglobin (0.5-1.5) % POC ABG HHb (Measured) (0.0-5.0) % ABG Methemoglobin (0.0-3.0) % Nathaniel Test A-a O2 Difference mm/Hg Respiratory Index Hgb O2 Saturation (95.0-98.0) % FiO2 % Sodium (132-148) mmol/L Potassium (3.6-5.2) mmol/L Chloride (98-107) mmol/L Carbon Dioxide (22-30) mmol/L Anion Gap (10-20) BUN (9-20) mg/dL Creatinine (0.8-1.5) mg/dL Est GFR ( Amer) Est GFR (Non-Af Amer) POC Glucose (mg/dL) 128 H 154 H 196 H (65-110) mg/dL Random Glucose (75-110) mg/dL Lactic Acid (0.7-2.1) mmol/L Calcium (8.6-10.4) mg/dl Phosphorus (2.5-4.5) mg/dL Magnesium (1.6-2.3) mg/dL Total Bilirubin (0.2-1.3) mg/dL AST (17-59) U/L ALT (21-72) U/L Alkaline Phosphatase (38-126) U/L Total Protein (6.3-8.3) g/dL Albumin (3.5-5.0) g/dL Globulin (2.2-3.9) gm/dL Albumin/Globulin Ratio (1.0-2.1) Triglycerides (0-149) mg/dL Cholesterol (0-199) mg/dL LDL Cholesterol Direct (0-129) mg/dL HDL Cholesterol (30-70) mg/dL Lipase (23-300) U/L Urine Opiates Screen (NEGATIVE) Urine Methadone Screen (NEGATIVE) Ur Barbiturates Screen (NEGATIVE) Ur Phencyclidine Scrn (NEGATIVE) Ur Amphetamines Screen (NEGATIVE) U Benzodiazepines Scrn (NEGATIVE) U Oth Cocaine Metabols (NEGATIVE) U Cannabinoids Screen (NEGATIVE) Alcohol, Quantitative (0-10) mg/dl 04/04/18 04/04/18 04/04/18 Range/Units 02:21 01:57 01:29 WBC (4.8-10.8) K/uL RBC (4.40-5.90) Mil/uL Hgb (12.0-18.0) g/dL Hct (35.0-51.0) % MCV (80.0-94.0) fL MCH (27.0-31.0) pg MCHC (33.0-37.0) g/dL RDW (11.5-14.5) % Plt Count (130-400) K/uL MPV (7.2-11.7) fL Neut % (Auto) (50.0-75.0) % Lymph % (Auto) (20.0-40.0) % Posey % (Auto) (0.0-10.0) % Eos % (Auto) (0.0-4.0) % Baso % (Auto) (0.0-2.0) % Neut # (Auto) (1.8-7.0) K/uL Lymph # (Auto) (1.0-4.3) K/uL Posey # (Auto) (0.0-0.8) K/uL Eos # (Auto) (0.0-0.7) K/uL Baso # (Auto) (0.0-0.2) K/uL Differential Comment Puncture Site pCO2 (35-45) mm/Hg pO2 (80-100) mm/Hg HCO3 (21-28) mmol/L ABG pH (7.35-7.45) ABG Total CO2 (22-28) mmol/L ABG O2 Saturation (95-98) % ABG Base Excess (-2.0-3.0) mmol/L ABG Hemoglobin (11.7-17.4) g/dL ABG Carboxyhemoglobin (0.5-1.5) % POC ABG HHb (Measured) (0.0-5.0) % ABG Methemoglobin (0.0-3.0) % Nathaniel Test A-a O2 Difference mm/Hg Respiratory Index Hgb O2 Saturation (95.0-98.0) % FiO2 % Sodium 130 L (132-148) mmol/L Potassium 3.6 (3.6-5.2) mmol/L Chloride 92 L (98-107) mmol/L Carbon Dioxide 17 L (22-30) mmol/L Anion Gap 25 H (10-20) BUN 18 (9-20) mg/dL Creatinine 0.8 (0.8-1.5) mg/dL Est GFR ( Amer) > 60 Est GFR (Non-Af Amer) > 60 POC Glucose (mg/dL) 101 116 H (65-110) mg/dL Random Glucose 72 L (75-110) mg/dL Lactic Acid (0.7-2.1) mmol/L Calcium 7.6 L (8.6-10.4) mg/dl Phosphorus (2.5-4.5) mg/dL Magnesium (1.6-2.3) mg/dL Total Bilirubin (0.2-1.3) mg/dL AST (17-59) U/L ALT (21-72) U/L Alkaline Phosphatase (38-126) U/L Total Protein (6.3-8.3) g/dL Albumin (3.5-5.0) g/dL Globulin (2.2-3.9) gm/dL Albumin/Globulin Ratio (1.0-2.1) Triglycerides (0-149) mg/dL Cholesterol (0-199) mg/dL LDL Cholesterol Direct (0-129) mg/dL HDL Cholesterol (30-70) mg/dL Lipase (23-300) U/L Urine Opiates Screen (NEGATIVE) Urine Methadone Screen (NEGATIVE) Ur Barbiturates Screen (NEGATIVE) Ur Phencyclidine Scrn (NEGATIVE) Ur Amphetamines Screen (NEGATIVE) U Benzodiazepines Scrn (NEGATIVE) U Oth Cocaine Metabols (NEGATIVE) U Cannabinoids Screen (NEGATIVE) Alcohol, Quantitative (0-10) mg/dl 04/04/18 04/03/18 04/03/18 Range/Units 00:30 23:27 22:42 WBC (4.8-10.8) K/uL RBC (4.40-5.90) Mil/uL Hgb (12.0-18.0) g/dL Hct (35.0-51.0) % MCV (80.0-94.0) fL MCH (27.0-31.0) pg MCHC (33.0-37.0) g/dL RDW (11.5-14.5) % Plt Count (130-400) K/uL MPV (7.2-11.7) fL Neut % (Auto) (50.0-75.0) % Lymph % (Auto) (20.0-40.0) % Posey % (Auto) (0.0-10.0) % Eos % (Auto) (0.0-4.0) % Baso % (Auto) (0.0-2.0) % Neut # (Auto) (1.8-7.0) K/uL Lymph # (Auto) (1.0-4.3) K/uL Posey # (Auto) (0.0-0.8) K/uL Eos # (Auto) (0.0-0.7) K/uL Baso # (Auto) (0.0-0.2) K/uL Differential Comment Puncture Site pCO2 (35-45) mm/Hg pO2 (80-100) mm/Hg HCO3 (21-28) mmol/L ABG pH (7.35-7.45) ABG Total CO2 (22-28) mmol/L ABG O2 Saturation (95-98) % ABG Base Excess (-2.0-3.0) mmol/L ABG Hemoglobin (11.7-17.4) g/dL ABG Carboxyhemoglobin (0.5-1.5) % POC ABG HHb (Measured) (0.0-5.0) % ABG Methemoglobin (0.0-3.0) % Nathaniel Test A-a O2 Difference mm/Hg Respiratory Index Hgb O2 Saturation (95.0-98.0) % FiO2 % Sodium (132-148) mmol/L Potassium (3.6-5.2) mmol/L Chloride (98-107) mmol/L Carbon Dioxide (22-30) mmol/L Anion Gap (10-20) BUN (9-20) mg/dL Creatinine (0.8-1.5) mg/dL Est GFR ( Amer) Est GFR (Non-Af Amer) POC Glucose (mg/dL) 159 H 219 H 207 H (65-110) mg/dL Random Glucose (75-110) mg/dL Lactic Acid (0.7-2.1) mmol/L Calcium (8.6-10.4) mg/dl Phosphorus (2.5-4.5) mg/dL Magnesium (1.6-2.3) mg/dL Total Bilirubin (0.2-1.3) mg/dL AST (17-59) U/L ALT (21-72) U/L Alkaline Phosphatase (38-126) U/L Total Protein (6.3-8.3) g/dL Albumin (3.5-5.0) g/dL Globulin (2.2-3.9) gm/dL Albumin/Globulin Ratio (1.0-2.1) Triglycerides (0-149) mg/dL Cholesterol (0-199) mg/dL LDL Cholesterol Direct (0-129) mg/dL HDL Cholesterol (30-70) mg/dL Lipase (23-300) U/L Urine Opiates Screen (NEGATIVE) Urine Methadone Screen (NEGATIVE) Ur Barbiturates Screen (NEGATIVE) Ur Phencyclidine Scrn (NEGATIVE) Ur Amphetamines Screen (NEGATIVE) U Benzodiazepines Scrn (NEGATIVE) U Oth Cocaine Metabols (NEGATIVE) U Cannabinoids Screen (NEGATIVE) Alcohol, Quantitative (0-10) mg/dl 04/03/18 04/03/18 04/03/18 Range/Units 21:40 19:22 16:25 WBC (4.8-10.8) K/uL RBC (4.40-5.90) Mil/uL Hgb (12.0-18.0) g/dL Hct (35.0-51.0) % MCV (80.0-94.0) fL MCH (27.0-31.0) pg MCHC (33.0-37.0) g/dL RDW (11.5-14.5) % Plt Count (130-400) K/uL MPV (7.2-11.7) fL Neut % (Auto) (50.0-75.0) % Lymph % (Auto) (20.0-40.0) % Posey % (Auto) (0.0-10.0) % Eos % (Auto) (0.0-4.0) % Baso % (Auto) (0.0-2.0) % Neut # (Auto) (1.8-7.0) K/uL Lymph # (Auto) (1.0-4.3) K/uL Posey # (Auto) (0.0-0.8) K/uL Eos # (Auto) (0.0-0.7) K/uL Baso # (Auto) (0.0-0.2) K/uL Differential Comment Puncture Site pCO2 (35-45) mm/Hg pO2 (80-100) mm/Hg HCO3 (21-28) mmol/L ABG pH (7.35-7.45) ABG Total CO2 (22-28) mmol/L ABG O2 Saturation (95-98) % ABG Base Excess (-2.0-3.0) mmol/L ABG Hemoglobin (11.7-17.4) g/dL ABG Carboxyhemoglobin (0.5-1.5) % POC ABG HHb (Measured) (0.0-5.0) % ABG Methemoglobin (0.0-3.0) % Nathaniel Test A-a O2 Difference mm/Hg Respiratory Index Hgb O2 Saturation (95.0-98.0) % FiO2 % Sodium 126 L (132-148) mmol/L Potassium 4.4 (3.6-5.2) mmol/L Chloride 82 L D (98-107) mmol/L Carbon Dioxide 17 L (22-30) mmol/L Anion Gap 31 H (10-20) BUN 21 H (9-20) mg/dL Creatinine 1.0 (0.8-1.5) mg/dL Est GFR ( Amer) > 60 Est GFR (Non-Af Amer) > 60 POC Glucose (mg/dL) 187 H (65-110) mg/dL Random Glucose 127 H (75-110) mg/dL Lactic Acid (0.7-2.1) mmol/L Calcium 7.7 L (8.6-10.4) mg/dl Phosphorus (2.5-4.5) mg/dL Magnesium (1.6-2.3) mg/dL Total Bilirubin 1.1 (0.2-1.3) mg/dL AST 124 H D (17-59) U/L ALT 61 (21-72) U/L Alkaline Phosphatase 102 (38-126) U/L Total Protein 7.3 (6.3-8.3) g/dL Albumin 4.5 (3.5-5.0) g/dL Globulin 2.9 (2.2-3.9) gm/dL Albumin/Globulin Ratio 1.6 (1.0-2.1) Triglycerides 353 H (0-149) mg/dL Cholesterol 270 H (0-199) mg/dL LDL Cholesterol Direct 141 H (0-129) mg/dL HDL Cholesterol 66 (30-70) mg/dL Lipase 1960 H (23-300) U/L Urine Opiates Screen (NEGATIVE) Urine Methadone Screen (NEGATIVE) Ur Barbiturates Screen (NEGATIVE) Ur Phencyclidine Scrn (NEGATIVE) Ur Amphetamines Screen (NEGATIVE) U Benzodiazepines Scrn (NEGATIVE) U Oth Cocaine Metabols (NEGATIVE) U Cannabinoids Screen (NEGATIVE) Alcohol, Quantitative (0-10) mg/dl 04/03/18 04/03/18 04/03/18 Range/Units 16:10 14:44 14:36 WBC (4.8-10.8) K/uL RBC (4.40-5.90) Mil/uL Hgb (12.0-18.0) g/dL Hct (35.0-51.0) % MCV (80.0-94.0) fL MCH (27.0-31.0) pg MCHC (33.0-37.0) g/dL RDW (11.5-14.5) % Plt Count (130-400) K/uL MPV (7.2-11.7) fL Neut % (Auto) (50.0-75.0) % Lymph % (Auto) (20.0-40.0) % Posey % (Auto) (0.0-10.0) % Eos % (Auto) (0.0-4.0) % Baso % (Auto) (0.0-2.0) % Neut # (Auto) (1.8-7.0) K/uL Lymph # (Auto) (1.0-4.3) K/uL Posey # (Auto) (0.0-0.8) K/uL Eos # (Auto) (0.0-0.7) K/uL Baso # (Auto) (0.0-0.2) K/uL Differential Comment Puncture Site Rradial pCO2 24 L (35-45) mm/Hg pO2 62 L (80-100) mm/Hg HCO3 18.5 L (21-28) mmol/L ABG pH 7.40 (7.35-7.45) ABG Total CO2 15.6 L (22-28) mmol/L ABG O2 Saturation 93.2 L (95-98) % ABG Base Excess -7.9 L (-2.0-3.0) mmol/L ABG Hemoglobin 14.3 (11.7-17.4) g/dL ABG Carboxyhemoglobin 2.8 H (0.5-1.5) % POC ABG HHb (Measured) 6.5 H (0.0-5.0) % ABG Methemoglobin 1.3 (0.0-3.0) % Nathaniel Test Pos A-a O2 Difference 58.0 mm/Hg Respiratory Index 0.9 Hgb O2 Saturation 89.4 L (95.0-98.0) % FiO2 21.0 % Sodium 119 L* (132-148) mmol/L Potassium 3.3 L (3.6-5.2) mmol/L Chloride 61 L D (98-107) mmol/L Carbon Dioxide 13 L (22-30) mmol/L Anion Gap 50 H (10-20) BUN 24 H (9-20) mg/dL Creatinine 1.7 H (0.8-1.5) mg/dL Est GFR ( Amer) 54 Est GFR (Non-Af Amer) 45 POC Glucose (mg/dL) (65-110) mg/dL Random Glucose 600 H* D (75-110) mg/dL Lactic Acid (0.7-2.1) mmol/L Calcium 8.5 L (8.6-10.4) mg/dl Phosphorus 6.3 H (2.5-4.5) mg/dL Magnesium 2.3 (1.6-2.3) mg/dL Total Bilirubin 1.7 H (0.2-1.3) mg/dL AST 158 H D (17-59) U/L ALT 76 H (21-72) U/L Alkaline Phosphatase 163 H D (38-126) U/L Total Protein 8.3 (6.3-8.3) g/dL Albumin 5.5 H D (3.5-5.0) g/dL Globulin 2.8 (2.2-3.9) gm/dL Albumin/Globulin Ratio 1.9 (1.0-2.1) Triglycerides (0-149) mg/dL Cholesterol (0-199) mg/dL LDL Cholesterol Direct (0-129) mg/dL HDL Cholesterol (30-70) mg/dL Lipase (23-300) U/L Urine Opiates Screen Negative (NEGATIVE) Urine Methadone Screen Negative (NEGATIVE) Ur Barbiturates Screen Negative (NEGATIVE) Ur Phencyclidine Scrn Negative (NEGATIVE) Ur Amphetamines Screen Negative (NEGATIVE) U Benzodiazepines Scrn Negative (NEGATIVE) U Oth Cocaine Metabols Negative (NEGATIVE) U Cannabinoids Screen Negative (NEGATIVE) Alcohol, Quantitative < 10 (0-10) mg/dl 04/03/18 Range/Units 14:17 WBC (4.8-10.8) K/uL RBC (4.40-5.90) Mil/uL Hgb (12.0-18.0) g/dL Hct (35.0-51.0) % MCV (80.0-94.0) fL MCH (27.0-31.0) pg MCHC (33.0-37.0) g/dL RDW (11.5-14.5) % Plt Count (130-400) K/uL MPV (7.2-11.7) fL Neut % (Auto) (50.0-75.0) % Lymph % (Auto) (20.0-40.0) % Posey % (Auto) (0.0-10.0) % Eos % (Auto) (0.0-4.0) % Baso % (Auto) (0.0-2.0) % Neut # (Auto) (1.8-7.0) K/uL Lymph # (Auto) (1.0-4.3) K/uL Posey # (Auto) (0.0-0.8) K/uL Eos # (Auto) (0.0-0.7) K/uL Baso # (Auto) (0.0-0.2) K/uL Differential Comment Puncture Site pCO2 (35-45) mm/Hg pO2 (80-100) mm/Hg HCO3 (21-28) mmol/L ABG pH (7.35-7.45) ABG Total CO2 (22-28) mmol/L ABG O2 Saturation (95-98) % ABG Base Excess (-2.0-3.0) mmol/L ABG Hemoglobin (11.7-17.4) g/dL ABG Carboxyhemoglobin (0.5-1.5) % POC ABG HHb (Measured) (0.0-5.0) % ABG Methemoglobin (0.0-3.0) % Nathaniel Test A-a O2 Difference mm/Hg Respiratory Index Hgb O2 Saturation (95.0-98.0) % FiO2 % Sodium (132-148) mmol/L Potassium (3.6-5.2) mmol/L Chloride (98-107) mmol/L Carbon Dioxide (22-30) mmol/L Anion Gap (10-20) BUN (9-20) mg/dL Creatinine (0.8-1.5) mg/dL Est GFR ( Amer) Est GFR (Non-Af Amer) POC Glucose (mg/dL) > 500 H* (65-110) mg/dL Random Glucose (75-110) mg/dL Lactic Acid (0.7-2.1) mmol/L Calcium (8.6-10.4) mg/dl Phosphorus (2.5-4.5) mg/dL Magnesium (1.6-2.3) mg/dL Total Bilirubin (0.2-1.3) mg/dL AST (17-59) U/L ALT (21-72) U/L Alkaline Phosphatase (38-126) U/L Total Protein (6.3-8.3) g/dL Albumin (3.5-5.0) g/dL Globulin (2.2-3.9) gm/dL Albumin/Globulin Ratio (1.0-2.1) Triglycerides (0-149) mg/dL Cholesterol (0-199) mg/dL LDL Cholesterol Direct (0-129) mg/dL HDL Cholesterol (30-70) mg/dL Lipase (23-300) U/L Urine Opiates Screen (NEGATIVE) Urine Methadone Screen (NEGATIVE) Ur Barbiturates Screen (NEGATIVE) Ur Phencyclidine Scrn (NEGATIVE) Ur Amphetamines Screen (NEGATIVE) U Benzodiazepines Scrn (NEGATIVE) U Oth Cocaine Metabols (NEGATIVE) U Cannabinoids Screen (NEGATIVE) Alcohol, Quantitative (0-10) mg/dl Laboratory Results - last 24 hr 04/03/18 04/03/18 04/03/18 14:17 14:36 14:44 WBC RBC Hgb Hct MCV MCH MCHC RDW Plt Count MPV Neut % (Auto) Lymph % (Auto) Posey % (Auto) Eos % (Auto) Baso % (Auto) Neut # (Auto) Lymph # (Auto) Posey # (Auto) Eos # (Auto) Baso # (Auto) Differential Comment Puncture Site pCO2 pO2 HCO3 ABG pH ABG Total CO2 ABG O2 Saturation ABG Base Excess ABG Hemoglobin ABG Carboxyhemoglobin POC ABG HHb (Measured) ABG Methemoglobin Nathaniel Test A-a O2 Difference Respiratory Index Hgb O2 Saturation FiO2 Sodium 119 L* Potassium 3.3 L Chloride 61 L D Carbon Dioxide 13 L Anion Gap 50 H BUN 24 H Creatinine 1.7 H Est GFR ( Amer) 54 Est GFR (Non-Af Amer) 45 POC Glucose (mg/dL) > 500 H* Random Glucose 600 H* D Lactic Acid Calcium 8.5 L Phosphorus 6.3 H Magnesium 2.3 Total Bilirubin 1.7 H AST 158 H D ALT 76 H Alkaline Phosphatase 163 H D Total Protein 8.3 Albumin 5.5 H D Globulin 2.8 Albumin/Globulin Ratio 1.9 Triglycerides Cholesterol LDL Cholesterol Direct HDL Cholesterol Lipase Urine Opiates Screen Negative Urine Methadone Screen Negative Ur Barbiturates Screen Negative Ur Phencyclidine Scrn Negative Ur Amphetamines Screen Negative U Benzodiazepines Scrn Negative U Oth Cocaine Metabols Negative U Cannabinoids Screen Negative Alcohol, Quantitative < 10 04/03/18 04/03/18 04/03/18 16:10 16:25 19:22 WBC RBC Hgb Hct MCV MCH MCHC RDW Plt Count MPV Neut % (Auto) Lymph % (Auto) Posey % (Auto) Eos % (Auto) Baso % (Auto) Neut # (Auto) Lymph # (Auto) Posey # (Auto) Eos # (Auto) Baso # (Auto) Differential Comment Puncture Site Rradial pCO2 24 L pO2 62 L HCO3 18.5 L ABG pH 7.40 ABG Total CO2 15.6 L ABG O2 Saturation 93.2 L ABG Base Excess -7.9 L ABG Hemoglobin 14.3 ABG Carboxyhemoglobin 2.8 H POC ABG HHb (Measured) 6.5 H ABG Methemoglobin 1.3 Nathaniel Test Pos A-a O2 Difference 58.0 Respiratory Index 0.9 Hgb O2 Saturation 89.4 L FiO2 21.0 Sodium 126 L Potassium 4.4 Chloride 82 L D Carbon Dioxide 17 L Anion Gap 31 H BUN 21 H Creatinine 1.0 Est GFR ( Amer) > 60 Est GFR (Non-Af Amer) > 60 POC Glucose (mg/dL) Random Glucose 127 H Lactic Acid Calcium 7.7 L Phosphorus Magnesium Total Bilirubin 1.1 AST 124 H D ALT 61 Alkaline Phosphatase 102 Total Protein 7.3 Albumin 4.5 Globulin 2.9 Albumin/Globulin Ratio 1.6 Triglycerides 353 H Cholesterol 270 H LDL Cholesterol Direct 141 H HDL Cholesterol 66 Lipase 1960 H Urine Opiates Screen Urine Methadone Screen Ur Barbiturates Screen Ur Phencyclidine Scrn Ur Amphetamines Screen U Benzodiazepines Scrn U Oth Cocaine Metabols U Cannabinoids Screen Alcohol, Quantitative 04/03/18 04/03/18 04/03/18 21:40 22:42 23:27 WBC RBC Hgb Hct MCV MCH MCHC RDW Plt Count MPV Neut % (Auto) Lymph % (Auto) Posey % (Auto) Eos % (Auto) Baso % (Auto) Neut # (Auto) Lymph # (Auto) Posey # (Auto) Eos # (Auto) Baso # (Auto) Differential Comment Puncture Site pCO2 pO2 HCO3 ABG pH ABG Total CO2 ABG O2 Saturation ABG Base Excess ABG Hemoglobin ABG Carboxyhemoglobin POC ABG HHb (Measured) ABG Methemoglobin Nathaniel Test A-a O2 Difference Respiratory Index Hgb O2 Saturation FiO2 Sodium Potassium Chloride Carbon Dioxide Anion Gap BUN Creatinine Est GFR ( Amer) Est GFR (Non-Af Amer) POC Glucose (mg/dL) 187 H 207 H 219 H Random Glucose Lactic Acid Calcium Phosphorus Magnesium Total Bilirubin AST ALT Alkaline Phosphatase Total Protein Albumin Globulin Albumin/Globulin Ratio Triglycerides Cholesterol LDL Cholesterol Direct HDL Cholesterol Lipase Urine Opiates Screen Urine Methadone Screen Ur Barbiturates Screen Ur Phencyclidine Scrn Ur Amphetamines Screen U Benzodiazepines Scrn U Oth Cocaine Metabols U Cannabinoids Screen Alcohol, Quantitative 04/04/18 04/04/18 04/04/18 00:30 01:29 01:57 WBC RBC Hgb Hct MCV MCH MCHC RDW Plt Count MPV Neut % (Auto) Lymph % (Auto) Posey % (Auto) Eos % (Auto) Baso % (Auto) Neut # (Auto) Lymph # (Auto) Posey # (Auto) Eos # (Auto) Baso # (Auto) Differential Comment Puncture Site pCO2 pO2 HCO3 ABG pH ABG Total CO2 ABG O2 Saturation ABG Base Excess ABG Hemoglobin ABG Carboxyhemoglobin POC ABG HHb (Measured) ABG Methemoglobin Nathaniel Test A-a O2 Difference Respiratory Index Hgb O2 Saturation FiO2 Sodium 130 L Potassium 3.6 Chloride 92 L Carbon Dioxide 17 L Anion Gap 25 H BUN 18 Creatinine 0.8 Est GFR ( Amer) > 60 Est GFR (Non-Af Amer) > 60 POC Glucose (mg/dL) 159 H 116 H Random Glucose 72 L Lactic Acid Calcium 7.6 L Phosphorus Magnesium Total Bilirubin AST ALT Alkaline Phosphatase Total Protein Albumin Globulin Albumin/Globulin Ratio Triglycerides Cholesterol LDL Cholesterol Direct HDL Cholesterol Lipase Urine Opiates Screen Urine Methadone Screen Ur Barbiturates Screen Ur Phencyclidine Scrn Ur Amphetamines Screen U Benzodiazepines Scrn U Oth Cocaine Metabols U Cannabinoids Screen Alcohol, Quantitative 04/04/18 04/04/18 04/04/18 02:21 03:29 04:28 WBC RBC Hgb Hct MCV MCH MCHC RDW Plt Count MPV Neut % (Auto) Lymph % (Auto) Posey % (Auto) Eos % (Auto) Baso % (Auto) Neut # (Auto) Lymph # (Auto) Posey # (Auto) Eos # (Auto) Baso # (Auto) Differential Comment Puncture Site pCO2 pO2 HCO3 ABG pH ABG Total CO2 ABG O2 Saturation ABG Base Excess ABG Hemoglobin ABG Carboxyhemoglobin POC ABG HHb (Measured) ABG Methemoglobin Nathaniel Test A-a O2 Difference Respiratory Index Hgb O2 Saturation FiO2 Sodium Potassium Chloride Carbon Dioxide Anion Gap BUN Creatinine Est GFR ( Amer) Est GFR (Non-Af Amer) POC Glucose (mg/dL) 101 196 H 154 H Random Glucose Lactic Acid Calcium Phosphorus Magnesium Total Bilirubin AST ALT Alkaline Phosphatase Total Protein Albumin Globulin Albumin/Globulin Ratio Triglycerides Cholesterol LDL Cholesterol Direct HDL Cholesterol Lipase Urine Opiates Screen Urine Methadone Screen Ur Barbiturates Screen Ur Phencyclidine Scrn Ur Amphetamines Screen U Benzodiazepines Scrn U Oth Cocaine Metabols U Cannabinoids Screen Alcohol, Quantitative 04/04/18 04/04/18 04/04/18 05:28 05:53 05:53 WBC 10.1 RBC 4.01 L Hgb 12.4 D Hct 35.8 MCV 89.1 D MCH 30.9 MCHC 34.7 RDW 13.7 Plt Count 98 L D MPV 8.0 Neut % (Auto) 78.8 H Lymph % (Auto) 16.7 L Posey % (Auto) 3.6 Eos % (Auto) 0.1 Baso % (Auto) 0.8 Neut # (Auto) 7.9 H Lymph # (Auto) 1.7 Posey # (Auto) 0.4 Eos # (Auto) 0.0 Baso # (Auto) 0.1 Differential Comment Puncture Site pCO2 pO2 HCO3 ABG pH ABG Total CO2 ABG O2 Saturation ABG Base Excess ABG Hemoglobin ABG Carboxyhemoglobin POC ABG HHb (Measured) ABG Methemoglobin Nathaniel Test A-a O2 Difference Respiratory Index Hgb O2 Saturation FiO2 Sodium 131 L Potassium 3.5 L Chloride 96 L Carbon Dioxide 17 L Anion Gap 21 H BUN 14 Creatinine 0.8 Est GFR ( Amer) > 60 Est GFR (Non-Af Amer) > 60 POC Glucose (mg/dL) 128 H Random Glucose 124 H Lactic Acid Calcium 7.7 L Phosphorus 1.3 L Magnesium 2.2 Total Bilirubin 0.8 AST 57 ALT 43 Alkaline Phosphatase 97 Total Protein 6.6 Albumin 3.9 Globulin 2.7 Albumin/Globulin Ratio 1.5 Triglycerides Cholesterol LDL Cholesterol Direct HDL Cholesterol Lipase Urine Opiates Screen Urine Methadone Screen Ur Barbiturates Screen Ur Phencyclidine Scrn Ur Amphetamines Screen U Benzodiazepines Scrn U Oth Cocaine Metabols U Cannabinoids Screen Alcohol, Quantitative 04/04/18 04/04/18 04/04/18 06:24 07:52 11:23 WBC RBC Hgb Hct MCV MCH MCHC RDW Plt Count MPV Neut % (Auto) Lymph % (Auto) Posey % (Auto) Eos % (Auto) Baso % (Auto) Neut # (Auto) Lymph # (Auto) Posey # (Auto) Eos # (Auto) Baso # (Auto) Differential Comment Puncture Site pCO2 pO2 HCO3 ABG pH ABG Total CO2 ABG O2 Saturation ABG Base Excess ABG Hemoglobin ABG Carboxyhemoglobin POC ABG HHb (Measured) ABG Methemoglobin Nathaniel Test A-a O2 Difference Respiratory Index Hgb O2 Saturation FiO2 Sodium Potassium Chloride Carbon Dioxide Anion Gap BUN Creatinine Est GFR ( Amer) Est GFR (Non-Af Amer) POC Glucose (mg/dL) 158 H 141 H 179 H Random Glucose Lactic Acid Calcium Phosphorus Magnesium Total Bilirubin AST ALT Alkaline Phosphatase Total Protein Albumin Globulin Albumin/Globulin Ratio Triglycerides Cholesterol LDL Cholesterol Direct HDL Cholesterol Lipase Urine Opiates Screen Urine Methadone Screen Ur Barbiturates Screen Ur Phencyclidine Scrn Ur Amphetamines Screen U Benzodiazepines Scrn U Oth Cocaine Metabols U Cannabinoids Screen Alcohol, Quantitative 04/04/18 11:45 WBC RBC Hgb Hct MCV MCH MCHC RDW Plt Count MPV Neut % (Auto) Lymph % (Auto) Posey % (Auto) Eos % (Auto) Baso % (Auto) Neut # (Auto) Lymph # (Auto) Posey # (Auto) Eos # (Auto) Baso # (Auto) Differential Comment Puncture Site pCO2 pO2 HCO3 ABG pH ABG Total CO2 ABG O2 Saturation ABG Base Excess ABG Hemoglobin ABG Carboxyhemoglobin POC ABG HHb (Measured) ABG Methemoglobin Nathaniel Test A-a O2 Difference Respiratory Index Hgb O2 Saturation FiO2 Sodium Potassium Chloride Carbon Dioxide Anion Gap BUN Creatinine Est GFR ( Amer) Est GFR (Non-Af Amer) POC Glucose (mg/dL) Random Glucose Lactic Acid 1.6 Calcium Phosphorus Magnesium Total Bilirubin AST ALT Alkaline Phosphatase Total Protein Albumin Globulin Albumin/Globulin Ratio Triglycerides Cholesterol LDL Cholesterol Direct HDL Cholesterol Lipase Urine Opiates Screen Urine Methadone Screen Ur Barbiturates Screen Ur Phencyclidine Scrn Ur Amphetamines Screen U Benzodiazepines Scrn U Oth Cocaine Metabols U Cannabinoids Screen Alcohol, Quantitative EKG/Cardiology Studies: Cardiology / EKG Studies 04/03/18 14:29 EKG [ELECTROCARDIOGRAM] Stat Comment: Mode Of Transportation: Reason For Exam: Seizure Critical Care Progress Note - Nutrition Nutrition: Nutrition Category Date Time Status Diabetic [Consistent Carbohydrate] [DIET] Diets 04/04/18 Lunch Active Attending/Attestation - Attestation I have personally seen and examined this patient.: Yes I have fully participated in the care of the patient.: Yes I have reviewed all pertinent clinical information: Yes Notes (Text): 04/04/18 15:07 I have seen and examined the patient. Medical records, lab studies, and imaging were reviewed by me and a management plan was formulated on multidisciplinary rounds with resident Dr. Burton. I agree with their documented assessment and plan. Stopped insulin drip, most likely secondary acidosis, possible alcoholic ketoacidosis. As soon as patient was off the drip he demanded to leave. He was AAO x 3. Advised him against this and risk to his health, but he did not care and signed out AMA. Critical Care Time 35 minutes. Multi-disciplinary rounds were performed with house staff, nursing, speech therapy, respiratory therapy, pharmacy and nutrition with integrated input from the primary team/attending and other consulting services. The documented time is cumulative and includes review of patient data/exams/labs/chart review and examination of the patient on rounds and throughout the day; time is exclusive of any procedures or teaching time.
[2018-04-04] MEDS: (Novolin R) Insulin Human Regular 100 units/ml vial SC SCH ×2 (08:00→12:00)
[2018-04-04] MEDS ORDERED: Multiple Vitamins Oral Solution PO SCH (10:00)
[2018-04-04] MEDS: Enoxaparin 40 mg Syringe SC SCH ×2 (10:35→10:42)
--- NOTE | 2018-04-04 12:39 | CARD ---
APPROVED REPORT Date of service: 04/03/2018 EKG Measurement Heart [id number] <Conclusion> Sinus tachycardia Otherwise normal ECG
--- NOTE | 2018-04-04 13:17 | CP.PCM.CON ---
History of Present Illness - History of Present Illness History of Present Illness: called re ? ICH L parietal region doubt it is there in any case of no consequence no NRS involvement indicated Past Patient History - Infectious Disease Hx of Infectious Diseases: None - Tetanus Immunizations Tetanus Immunization: Unknown - Past Medical History & Family History Past Medical History?: Yes - Past Social History Smoking Status: Heavy Smoker > 10 Cigarettes Daily - CARDIAC Hx Hypertension: No - PULMONARY Hx Tuberculosis: No - NEUROLOGICAL Hx Seizures: No - HEENT Hx HEENT Problems: No - RENAL Hx Chronic Kidney Disease: No - ENDOCRINE/METABOLIC Hx Diabetes Mellitus Type 2: Yes - HEMATOLOGICAL/ONCOLOGICAL Hx Human Immunodeficiency Virus (HIV): No - INTEGUMENTARY Hx Dermatological Problems: No (TATTOO TO LEFT LEG.) - MUSCULOSKELETAL/RHEUMATOLOGICAL Hx Falls: Yes - GASTROINTESTINAL Hx Gastritis: Yes - GENITOURINARY/GYNECOLOGICAL Hx Sexually Transmitted Disorders: No - PSYCHIATRIC Hx Anxiety: Yes Hx Depression: No Hx Substance Use: Yes - SURGICAL HISTORY Hx Surgeries: No - ANESTHESIA Hx Anesthesia: Yes Hx Anesthesia Reactions: No Meds Allergies/Adverse Reactions: Allergies Allergy/AdvReac Type Severity Reaction Status Date / Time No Known Allergies Allergy Verified 04/03/18 14:18 - Medications Medications: Current Medications Chlordiazepoxide (Librium) 5 mg PO Q8 PRN PRN Reason: Symptoms of alcohol withdrawl Last Admin: 04/04/18 10:51 Dose: 5 mg Dextrose (Dextrose 50% Inj) 0 ml IV STAT PRN; Protocol PRN Reason: Hypoglycemia Protocol Dextrose (Glutose 15) 0 gm PO ONCE PRN; Protocol PRN Reason: Hypoglycemia Protocol Enoxaparin Sodium (Lovenox) 40 mg SC DAILY [facility] Last Admin: 04/04/18 10:42 Dose: Not Given Folic Acid (Folic Acid) 1 mg PO DAILY [facility] Glucagon (Glucagen Diagnostic Kit) 0 mg IM STAT PRN; Protocol PRN Reason: Hypoglycemia Protocol Dextrose (Dextrose 5% In Water 1000 Ml) 1,000 mls @ 0 mls/hr IV .Q0M PRN; Protocol PRN Reason: Hypoglycemia Protocol Potassium Phosphate 15 mmole/ (Sodium Chloride) 255 mls @ 42.5 mls/hr IVPB ONCE ONE Stop: 04/04/18 13:20 Last Admin: 04/04/18 08:20 Dose: 42.5 mls/hr Potassium Chloride 20 meq/ (Dextrose/Sodium Chloride) 1,010 mls @ 100 mls/hr IV .Q10H6M [facility] Last Admin: 04/04/18 07:30 Dose: Not Given Insulin Glargine (Lantus) 10 unit SC HS [facility] Last Admin: 04/03/18 23:59 Dose: 10 units Insulin Human Regular (Novolin R) 0 unit SC Q4H [facility]; Protocol Last Admin: 04/04/18 08:00 Dose: Not Given Multivitamins/Vitamin C (Multi-Delyn Liquid) 5 ml PO DAILY [facility] Last Admin: 04/04/18 10:37 Dose: 5 ml Oxycodone/Acetaminophen (Percocet 5/325 Mg Tab) 1 tab PO Q6H PRN PRN Reason: Pain, moderate (4-7) Stop: 04/07/18 00:21 Last Admin: 04/04/18 10:33 Dose: 1 tab Thiamine HCl (Vitamin B1 Tab) 100 mg PO DAILY [facility] Results - Vital Signs Recent Vital Signs: Last Vital Signs Temp 98.4 F 04/04/18 08:00 Pulse 108 H 04/04/18 09:00 Resp 21 04/04/18 09:00 BP 140/80 04/04/18 09:00 Pulse Ox 98 04/04/18 09:00 - Labs Result Diagrams: 04/04/18 05:53 04/04/18 05:53 Labs: Laboratory Results - last 24 hr 04/03/18 04/03/18 04/03/18 14:17 14:36 14:36 WBC 12.3 H D RBC 4.88 Hgb 15.2 D Hct 44.9 MCV 92.0 MCH 31.2 H MCHC 33.9 RDW 14.0 Plt Count 192 MPV 9.1 Neut % (Auto) 82.7 H Lymph % (Auto) 12.4 L Kinney % (Auto) 4.4 Eos % (Auto) 0.0 Baso % (Auto) 0.5 Neut # (Auto) 10.2 H Lymph # (Auto) 1.5 Kinney # (Auto) 0.5 Eos # (Auto) 0.0 Baso # (Auto) 0.1 Differential Comment PT 10.8 INR 1.0 APTT 26 Puncture Site pCO2 pO2 HCO3 ABG pH ABG Total CO2 ABG O2 Saturation ABG Base Excess ABG Hemoglobin ABG Carboxyhemoglobin POC ABG HHb (Measured) ABG Methemoglobin Nathaniel Test A-a O2 Difference Respiratory Index Hgb O2 Saturation FiO2 Sodium Potassium Chloride Carbon Dioxide Anion Gap BUN Creatinine Est GFR ( Amer) Est GFR (Non-Af Amer) POC Glucose (mg/dL) > 500 H* Random Glucose Lactic Acid Calcium Phosphorus Magnesium Total Bilirubin AST ALT Alkaline Phosphatase Troponin I Total Protein Albumin Globulin Albumin/Globulin Ratio Triglycerides Cholesterol LDL Cholesterol Direct HDL Cholesterol Lipase Urine Color Urine Clarity Urine pH Ur Specific [place] Urine Protein Urine Glucose (UA) Urine Ketones Urine Blood Urine Nitrate Urine Bilirubin Urine Urobilinogen Ur Leukocyte Esterase Urine WBC (Auto) Urine RBC (Auto) Salicylates Urine Opiates Screen Urine Methadone Screen Acetaminophen Ur Barbiturates Screen Ur Phencyclidine Scrn Ur Amphetamines Screen U Benzodiazepines Scrn U Oth Cocaine Metabols U Cannabinoids Screen Alcohol, Quantitative 04/03/18 04/03/18 04/03/18 14:36 14:36 14:44 WBC RBC Hgb Hct MCV MCH MCHC RDW Plt Count MPV Neut % (Auto) Lymph % (Auto) Kinney % (Auto) Eos % (Auto) Baso % (Auto) Neut # (Auto) Lymph # (Auto) Kinney # (Auto) Eos # (Auto) Baso # (Auto) Differential Comment PT INR APTT Puncture Site pCO2 pO2 HCO3 ABG pH ABG Total CO2 ABG O2 Saturation ABG Base Excess ABG Hemoglobin ABG Carboxyhemoglobin POC ABG HHb (Measured) ABG Methemoglobin Nathaniel Test A-a O2 Difference Respiratory Index Hgb O2 Saturation FiO2 Sodium 119 L* Potassium 3.3 L Chloride 61 L D Carbon Dioxide 13 L Anion Gap 50 H BUN 24 H Creatinine 1.7 H Est GFR ( Amer) 54 Est GFR (Non-Af Amer) 45 POC Glucose (mg/dL) Random Glucose 600 H* D Lactic Acid Calcium 8.5 L Phosphorus 6.3 H Magnesium 2.3 Total Bilirubin 1.7 H AST 158 H D ALT 76 H Alkaline Phosphatase 163 H D Troponin I 0.0220 Total Protein 8.3 Albumin 5.5 H D Globulin 2.8 Albumin/Globulin Ratio 1.9 Triglycerides Cholesterol LDL Cholesterol Direct HDL Cholesterol Lipase Urine Color Urine Clarity Urine pH Ur Specific [place] Urine Protein Urine Glucose (UA) Urine Ketones Urine Blood Urine Nitrate Urine Bilirubin Urine Urobilinogen Ur Leukocyte Esterase Urine WBC (Auto) Urine RBC (Auto) Salicylates < 1.0 Urine Opiates Screen Negative Urine Methadone Screen Negative Acetaminophen < 10.0 L Ur Barbiturates Screen Negative Ur Phencyclidine Scrn Negative Ur Amphetamines Screen Negative U Benzodiazepines Scrn Negative U Oth Cocaine Metabols Negative U Cannabinoids Screen Negative Alcohol, Quantitative < 10 04/03/18 04/03/18 04/03/18 14:44 16:10 16:25 WBC RBC Hgb Hct MCV MCH MCHC RDW Plt Count MPV Neut % (Auto) Lymph % (Auto) Kinney % (Auto) Eos % (Auto) Baso % (Auto) Neut # (Auto) Lymph # (Auto) Kinney # (Auto) Eos # (Auto) Baso # (Auto) Differential Comment PT INR APTT Puncture Site Rradial pCO2 24 L pO2 62 L HCO3 18.5 L ABG pH 7.40 ABG Total CO2 15.6 L ABG O2 Saturation 93.2 L ABG Base Excess -7.9 L ABG Hemoglobin 14.3 ABG Carboxyhemoglobin 2.8 H POC ABG HHb (Measured) 6.5 H ABG Methemoglobin 1.3 Nathaniel Test Pos A-a O2 Difference 58.0 Respiratory Index 0.9 Hgb O2 Saturation 89.4 L FiO2 21.0 Sodium Potassium Chloride Carbon Dioxide Anion Gap BUN Creatinine Est GFR ( Amer) Est GFR (Non-Af Amer) POC Glucose (mg/dL) Random Glucose Lactic Acid Calcium Phosphorus Magnesium Total Bilirubin AST ALT Alkaline Phosphatase Troponin I Total Protein Albumin Globulin Albumin/Globulin Ratio Triglycerides Cholesterol LDL Cholesterol Direct HDL Cholesterol Lipase 1960 H Urine Color Yellow Urine Clarity Clear Urine pH 5.0 Ur Specific [place] 1.017 Urine Protein 1+ H Urine Glucose (UA) 3+ H Urine Ketones 2+ H Urine Blood 2+ H Urine Nitrate Negative Urine Bilirubin Negative Urine Urobilinogen Normal Ur Leukocyte Esterase Neg Urine WBC (Auto) 1 Urine RBC (Auto) 15 H Salicylates Urine Opiates Screen Urine Methadone Screen Acetaminophen Ur Barbiturates Screen Ur Phencyclidine Scrn Ur Amphetamines Screen U Benzodiazepines Scrn U Oth Cocaine Metabols U Cannabinoids Screen Alcohol, Quantitative 04/03/18 04/03/18 04/03/18 19:22 21:40 22:42 WBC RBC Hgb Hct MCV MCH MCHC RDW Plt Count MPV Neut % (Auto) Lymph % (Auto) Kinney % (Auto) Eos % (Auto) Baso % (Auto) Neut # (Auto) Lymph # (Auto) Kinney # (Auto) Eos # (Auto) Baso # (Auto) Differential Comment PT INR APTT Puncture Site pCO2 pO2 HCO3 ABG pH ABG Total CO2 ABG O2 Saturation ABG Base Excess ABG Hemoglobin ABG Carboxyhemoglobin POC ABG HHb (Measured) ABG Methemoglobin Nathaniel Test A-a O2 Difference Respiratory Index Hgb O2 Saturation FiO2 Sodium 126 L Potassium 4.4 Chloride 82 L D Carbon Dioxide 17 L Anion Gap 31 H BUN 21 H Creatinine 1.0 Est GFR ( Amer) > 60 Est GFR (Non-Af Amer) > 60 POC Glucose (mg/dL) 187 H 207 H Random Glucose 127 H Lactic Acid Calcium 7.7 L Phosphorus Magnesium Total Bilirubin 1.1 AST 124 H D ALT 61 Alkaline Phosphatase 102 Troponin I Total Protein 7.3 Albumin 4.5 Globulin 2.9 Albumin/Globulin Ratio 1.6 Triglycerides 353 H Cholesterol 270 H LDL Cholesterol Direct 141 H HDL Cholesterol 66 Lipase Urine Color Urine Clarity Urine pH Ur Specific [place] Urine Protein Urine Glucose (UA) Urine Ketones Urine Blood Urine Nitrate Urine Bilirubin Urine Urobilinogen Ur Leukocyte Esterase Urine WBC (Auto) Urine RBC (Auto) Salicylates Urine Opiates Screen Urine Methadone Screen Acetaminophen Ur Barbiturates Screen Ur Phencyclidine Scrn Ur Amphetamines Screen U Benzodiazepines Scrn U Oth Cocaine Metabols U Cannabinoids Screen Alcohol, Quantitative 04/03/18 04/04/18 04/04/18 23:27 00:30 01:29 WBC RBC Hgb Hct MCV MCH MCHC RDW Plt Count MPV Neut % (Auto) Lymph % (Auto) Kinney % (Auto) Eos % (Auto) Baso % (Auto) Neut # (Auto) Lymph # (Auto) Kinney # (Auto) Eos # (Auto) Baso # (Auto) Differential Comment PT INR APTT Puncture Site pCO2 pO2 HCO3 ABG pH ABG Total CO2 ABG O2 Saturation ABG Base Excess ABG Hemoglobin ABG Carboxyhemoglobin POC ABG HHb (Measured) ABG Methemoglobin Nathaniel Test A-a O2 Difference Respiratory Index Hgb O2 Saturation FiO2 Sodium Potassium Chloride Carbon Dioxide Anion Gap BUN Creatinine Est GFR ( Amer) Est GFR (Non-Af Amer) POC Glucose (mg/dL) 219 H 159 H 116 H Random Glucose Lactic Acid Calcium Phosphorus Magnesium Total Bilirubin AST ALT Alkaline Phosphatase Troponin I Total Protein Albumin Globulin Albumin/Globulin Ratio Triglycerides Cholesterol LDL Cholesterol Direct HDL Cholesterol Lipase Urine Color Urine Clarity Urine pH Ur Specific [place] Urine Protein Urine Glucose (UA) Urine Ketones Urine Blood Urine Nitrate Urine Bilirubin Urine Urobilinogen Ur Leukocyte Esterase Urine WBC (Auto) Urine RBC (Auto) Salicylates Urine Opiates Screen Urine Methadone Screen Acetaminophen Ur Barbiturates Screen Ur Phencyclidine Scrn Ur Amphetamines Screen U Benzodiazepines Scrn U Oth Cocaine Metabols U Cannabinoids Screen Alcohol, Quantitative 04/04/18 04/04/18 04/04/18 01:57 02:21 03:29 WBC RBC Hgb Hct MCV MCH MCHC RDW Plt Count MPV Neut % (Auto) Lymph % (Auto) Kinney % (Auto) Eos % (Auto) Baso % (Auto) Neut # (Auto) Lymph # (Auto) Kinney # (Auto) Eos # (Auto) Baso # (Auto) Differential Comment PT INR APTT Puncture Site pCO2 pO2 HCO3 ABG pH ABG Total CO2 ABG O2 Saturation ABG Base Excess ABG Hemoglobin ABG Carboxyhemoglobin POC ABG HHb (Measured) ABG Methemoglobin Nathaniel Test A-a O2 Difference Respiratory Index Hgb O2 Saturation FiO2 Sodium 130 L Potassium 3.6 Chloride 92 L Carbon Dioxide 17 L Anion Gap 25 H BUN 18 Creatinine 0.8 Est GFR ( Amer) > 60 Est GFR (Non-Af Amer) > 60 POC Glucose (mg/dL) 101 196 H Random Glucose 72 L Lactic Acid Calcium 7.6 L Phosphorus Magnesium Total Bilirubin AST ALT Alkaline Phosphatase Troponin I Total Protein Albumin Globulin Albumin/Globulin Ratio Triglycerides Cholesterol LDL Cholesterol Direct HDL Cholesterol Lipase Urine Color Urine Clarity Urine pH Ur Specific [place] Urine Protein Urine Glucose (UA) Urine Ketones Urine Blood Urine Nitrate Urine Bilirubin Urine Urobilinogen Ur Leukocyte Esterase Urine WBC (Auto) Urine RBC (Auto) Salicylates Urine Opiates Screen Urine Methadone Screen Acetaminophen Ur Barbiturates Screen Ur Phencyclidine Scrn Ur Amphetamines Screen U Benzodiazepines Scrn U Oth Cocaine Metabols U Cannabinoids Screen Alcohol, Quantitative 04/04/18 04/04/18 04/04/18 04:28 05:28 05:53 WBC 10.1 RBC 4.01 L Hgb 12.4 D Hct 35.8 MCV 89.1 D MCH 30.9 MCHC 34.7 RDW 13.7 Plt Count 98 L D MPV 8.0 Neut % (Auto) 78.8 H Lymph % (Auto) 16.7 L Kinney % (Auto) 3.6 Eos % (Auto) 0.1 Baso % (Auto) 0.8 Neut # (Auto) 7.9 H Lymph # (Auto) 1.7 Kinney # (Auto) 0.4 Eos # (Auto) 0.0 Baso # (Auto) 0.1 Differential Comment PT INR APTT Puncture Site pCO2 pO2 HCO3 ABG pH ABG Total CO2 ABG O2 Saturation ABG Base Excess ABG Hemoglobin ABG Carboxyhemoglobin POC ABG HHb (Measured) ABG Methemoglobin Nathaniel Test A-a O2 Difference Respiratory Index Hgb O2 Saturation FiO2 Sodium Potassium Chloride Carbon Dioxide Anion Gap BUN Creatinine Est GFR ( Amer) Est GFR (Non-Af Amer) POC Glucose (mg/dL) 154 H 128 H Random Glucose Lactic Acid Calcium Phosphorus Magnesium Total Bilirubin AST ALT Alkaline Phosphatase Troponin I Total Protein Albumin Globulin Albumin/Globulin Ratio Triglycerides Cholesterol LDL Cholesterol Direct HDL Cholesterol Lipase Urine Color Urine Clarity Urine pH Ur Specific [place] Urine Protein Urine Glucose (UA) Urine Ketones Urine Blood Urine Nitrate Urine Bilirubin Urine Urobilinogen Ur Leukocyte Esterase Urine WBC (Auto) Urine RBC (Auto) Salicylates Urine Opiates Screen Urine Methadone Screen Acetaminophen Ur Barbiturates Screen Ur Phencyclidine Scrn Ur Amphetamines Screen U Benzodiazepines Scrn U Oth Cocaine Metabols U Cannabinoids Screen Alcohol, Quantitative 04/04/18 04/04/18 04/04/18 05:53 06:24 07:52 WBC RBC Hgb Hct MCV MCH MCHC RDW Plt Count MPV Neut % (Auto) Lymph % (Auto) Kin[place] % (Auto) Eos % (Auto) Baso % (Auto) Neut # (Auto) Lymph # (Auto) Kinney # (Auto) Eos # (Auto) Baso # (Auto) Differential Comment PT INR APTT Puncture Site pCO2 pO2 HCO3 ABG pH ABG Total CO2 ABG O2 Saturation ABG Base Excess ABG Hemoglobin ABG Carboxyhemoglobin POC ABG HHb (Measured) ABG Methemoglobin Nathaniel Test A-a O2 Difference Respiratory Index Hgb O2 Saturation FiO2 Sodium 131 L Potassium 3.5 L Chloride 96 L Carbon Dioxide 17 L Anion Gap 21 H BUN 14 Creatinine 0.8 Est GFR ( Amer) > 60 Est GFR (Non-Af Amer) > 60 POC Glucose (mg/dL) 158 H 141 H Random Glucose 124 H Lactic Acid Calcium 7.7 L Phosphorus 1.3 L Magnesium 2.2 Total Bilirubin 0.8 AST 57 ALT 43 Alkaline Phosphatase 97 Troponin I Total Protein 6.6 Albumin 3.9 Globulin 2.7 Albumin/Globulin Ratio 1.5 Triglycerides Cholesterol LDL Cholesterol Direct HDL Cholesterol Lipase Urine Color Urine Clarity Urine pH Ur Specific [place] Urine Protein Urine Glucose (UA) Urine Ketones Urine Blood Urine Nitrate Urine Bilirubin Urine Urobilinogen Ur Leukocyte Esterase Urine WBC (Auto) Urine RBC (Auto) Salicylates Urine Opiates Screen Urine Methadone Screen Acetaminophen Ur Barbiturates Screen Ur Phencyclidine Scrn Ur Amphetamines Screen U Benzodiazepines Scrn U Oth Cocaine Metabols U Cannabinoids Screen Alcohol, Quantitative 04/04/18 04/04/18 11:23 11:45 WBC RBC Hgb Hct MCV MCH MCHC RDW Plt Count MPV Neut % (Auto) Lymph % (Auto) Kinney % (Auto) Eos % (Auto) Baso % (Auto) Neut # (Auto) Lymph # (Auto) Kinney # (Auto) Eos # (Auto) Baso # (Auto) Differential Comment PT INR APTT Puncture Site pCO2 pO2 HCO3 ABG pH ABG Total CO2 ABG O2 Saturation ABG Base Excess ABG Hemoglobin ABG Carboxyhemoglobin POC ABG HHb (Measured) ABG Methemoglobin Nathaniel Test A-a O2 Difference Respiratory Index Hgb O2 Saturation FiO2 Sodium Potassium Chloride Carbon Dioxide Anion Gap BUN Creatinine Est GFR ( Amer) Est GFR (Non-Af Amer) POC Glucose (mg/dL) 179 H Random Glucose Lactic Acid 1.6 Calcium Phosphorus Magnesium Total Bilirubin AST ALT Alkaline Phosphatase Troponin I Total Protein Albumin Globulin Albumin/Globulin Ratio Triglycerides Cholesterol LDL Cholesterol Direct HDL Cholesterol Lipase Urine Color Urine Clarity Urine pH Ur Specific [place] Urine Protein Urine Glucose (UA) Urine Ketones Urine Blood Urine Nitrate Urine Bilirubin Urine Urobilinogen Ur Leukocyte Esterase Urine WBC (Auto) Urine RBC (Auto) Salicylates Urine Opiates Screen Urine Methadone Screen Acetaminophen Ur Barbiturates Screen Ur Phencyclidine Scrn Ur Amphetamines Screen U Benzodiazepines Scrn U Oth Cocaine Metabols U Cannabinoids Screen Alcohol, Quantitative
[2018-04-04 13:25] VITALS: PULSE 99
--- NOTE | 2018-04-04 14:03 | CT ---
Date of service: 04/04/2018 PROCEDURE: CT HEAD WITHOUT CONTRAST. HISTORY: 6 hours post 1rst History of fall and seizure COMPARISON: 04/03/2018 TECHNIQUE: Axial computed tomography images were obtained through the head/brain without intravenous contrast. Radiation dose: Total exam DLP = 1009.65 mGy-cm. This CT exam was performed using one or more of the following dose reduction techniques: Automated exposure control, adjustment of the mA and/or kV according to patient size, and/or use of iterative reconstruction technique. Please note that the scan is grossly technically limited in that the inferior aspect of the cerebellum was not included on the scan. Attempts to have the patient return from the intensive care unit 2 Radiology to complete the scan were unsuccessful as the patient had reportedly signed out against medical advice. FINDINGS: HEMORRHAGE: Focal cortical high attenuation in the posterior right parietal cortex essentially unchanged from prior examination, possibly representing focal parenchymal hemorrhage. Consistent with petechial contusion. Cannot entirely rule out subarachnoid component. No other hemorrhage identified elsewhere. BRAIN: No mass effect or edema. Ovoid 8 area of low attenuation in the right parietal white matter may represent an old lacune. No evidence of acute infarct. VENTRICLES: Unremarkable. No hydrocephalus. CALVARIUM: Unremarkable. PARANASAL SINUSES: Extensive chronic left maxillary sinusitis. Minimal chronic ethmoid sinusitis. Minimal chronic right maxillary sinusitis. MASTOID AIR CELLS: Unremarkable as visualized. No inflammatory changes. OTHER FINDINGS: None. IMPRESSION: Likely focal petechial contusion in the posterior right parietal lobe. Incomplete examination. The patient has signed out against medical advice and the examination could not be completed. No significant change from prior examination of 04/03/2018. Chronic paranasal sinusitis.
[2018-04-04 14:47] VITALS: RESP 20; O2SAT 99
[2018-04-04 14:50] VITALS: BP 124/80; TEMP 98
== END 2018-04-04 13:00 | disposition left against medical advice (07) | DRG 294 ==
LOC: C.ER 13:59 → C.9E 15:50 → C.9I 20:19
PROVIDERS: ADMIT Internal Medicine Nephrology; ATTEND Internal Medicine Nephrology
DX: E11.10 Type 2 diabetes mellitus with ketoacidosis without coma (principal); E86.0 Dehydration; R56.9 Unspecified convulsions; F10.239 Alcohol dependence with withdrawal, unspecified; F14.90 Cocaine use, unspecified, uncomplicated; F17.210 Nicotine dependence, cigarettes, uncomplicated

== ENCOUNTER 2018-04-06 05:06 | Inpatient (IN) | payer OTHER ==
[2018-04-06 05:06] VITALS: BMI 23.6
[2018-04-06] MEDS ORDERED: Sodium Chloride 0.9% 1,000 ML IV ONE ×2 (05:28→06:31)
[2018-04-06] MEDS ORDERED: (Novolin R) Insulin Human Regular 100 units/ml vial IVP STA (05:32)
--- NOTE | 2018-04-06 05:34 | C.PDOC ---
History Of Present Illness 42 year old male presents to the ED for evaluation of vomiting blood today [employer]. Patient reports she was admitted to ICU and signed out AMA 2 days ago. Patient has PMHx of DKA and GI bleed. Patient reports he drank some alcohol today. Patient denies fever, chills, diarrhea, dysuria, hematuria, back pain, weakness, numbness. Chief Complaint (Nursing): GI Problem History Per: Patient History/Exam Limitations: no limitations Onset/Duration Of Symptoms: Hrs Current Symptoms Are (Timing): Still Present Location Of Pain/Discomfort: Diffuse Quality Of Discomfort: "Pain" Associated Symptoms: Nausea, Vomiting. denies: Diarrhea, Urinary Symptoms Recent travel outside of the [place]: No Additional History Per: Patient Past Medical History Reviewed: Historical Data, Nursing Documentation, Vital Signs Vital Signs: Last Vital Signs Temp 97.9 F 04/06/18 05:12 Pulse 123 H 04/06/18 05:12 Resp 28 H 04/06/18 05:12 BP 125/86 04/06/18 05:12 Pulse Ox 98 04/06/18 05:12 - Medical History PMH: Anxiety, Diabetes (metformin), Gastritis Denies: Depression, Hepatitis, HIV, HTN, Chronic Kidney Disease, Seizures, Sexually Transmitted Disease Surgical History: No Surg Hx - [facility] Procedures CLOSURE SKIN & SUBCUTANEOUS NEC (06/04/03) DETOXIFICATION SERVICES FOR SUBSTANCE ABUSE TREATMENT (06/20/17) ESOPHAGOGASTRODUODENOSCOPY [EGD] W/CLOSED BIOPSY (11/12/14) INDIV PSYCHOTHERAPY FOR SUBSTANCE ABUSE TREATMENT, SUPPORT (06/20/17) INFLUENZA VACCINATION (02/05/13) LARYGNOSCOPY AND OTH TRACHEOSCOPY (05/02/14) PHARMACOTHERAPY FOR SUBSTANCE ABUSE, NICOTINE REPLACE (06/20/17) Family History: States: Unknown Family Hx - Social History Hx Tobacco Use: Yes Hx Alcohol Use: Yes Hx Substance Use: Yes (denies) - Immunization History Hx Tetanus Toxoid Vaccination: No Hx Influenza Vaccination: No Hx Pneumococcal Vaccination: No Review Of Systems Constitutional: Negative for: Fever, Chills Cardiovascular: Negative for: Chest Pain Respiratory: Negative for: Cough, Shortness of Breath Gastrointestinal: Positive for: Vomiting, Abdominal Pain. Negative for: Nausea, Diarrhea Skin: Negative for: Rash Neurological: Negative for: Weakness, Numbness, Headache, Dizziness Physical Exam - Physical Exam Appears: Non-toxic, No Acute Distress, Other (AOB) Skin: Normal Color, Warm, Dry Head: Atraumatic, Normacephalic Eye(s): bilateral: Normal Inspection Oral Mucosa: Moist Neck: Normal ROM, Supple Chest: Symmetrical Cardiovascular: Rhythm Regular Respiratory: Normal Breath Sounds, No Rales, No Rhonchi, No Wheezing, Other (non specific cough) Gastrointestinal/Abdominal: Soft, No Tenderness, No Guarding, No Rebound Extremity: Normal ROM, No Tenderness, No Swelling Neurological/Psych: Oriented x3, Normal Speech, Normal Cognition Gait: Steady ED Course And Treatment - Laboratory Results Result Diagrams: 04/06/18 05:39 04/06/18 05:39 ECG: Interpreted By Me, Viewed By Me ECG Rhythm: Sinus Tachycardia ECG Interpretation: No Acute Changes Interpretation Of ECG: Sinus tachycardia,otherwise normal tracings. Rate From EC O2 Sat by Pulse Oximetry: 98 (ON RA) Pulse Ox Interpretation: Normal Medical Decision Making Medical Decision Making: Plan: * ABG * CXR * EKG * Labs * Insulin * IV fluids * UA Disposition - Disposition Disposition: HOSPITALIZED Disposition Time: 07:00 Condition: GUARDED Forms: [employer] (Scottish) - Clinical Impression Clinical Impression: DKA (diabetic ketoacidoses), Hyperglycemia - Scribe Statement The provider has reviewed the documentation as recorded by the Scribe Kt Hua All medical record entries made by the Scribe were at my direction and personally dictated by me. I have reviewed the chart and agree that the record accurately reflects my personal performance of the history, physical exam, medi megan decision making, and the department course for this patient. I have also personally directed, reviewed, and agree with the discharge instructions and disposition.
[2018-04-06 05:42] LABS: BASO # 0.1 K/uL (0.0-0.2); BASO % 0.7 % (0.0-2.0); EOS % 0.1 % (0.0-4.0); HEMOGLOBIN 12.4 g/dL (12.0-18.0); LYMPH # 0.7 K/uL (1.0-4.3); LYMPH % 6.1 % (20.0-40.0); MEAN CELL VOLUME 90.7 fL (80.0-94.0); MEAN CORPUSCULAR HEMOGLOBIN 31.2 pg (27.0-31.0); MEAN CORPUSCULAR HGB CONC 34.5 g/dL (33.0-37.0); MEAN PLATELET VOLUME 9.1 fL (7.2-11.7); MONO # 0.4 K/uL (0.0-0.8); MONO % 3.5 % (0.0-10.0); NEUT % 89.6 % (50.0-75.0); PLATELET COUNT 150 K/uL (130-400); RBC 3.96 Mil/uL (4.40-5.90); RED CELL DISTRIBUTION WIDTH 13.3 % (11.5-14.5); WHITE BLOOD COUNT 11.2 K/uL (4.8-10.8)
[2018-04-06 05:49] LABS: ABG ALLEN TEST POS; ARTERIAL BLOOD GAS HCO3 12.3 mmol/L (21-28); ARTERIAL BLOOD GAS HEMOGLOBIN 12.3 g/dL (11.7-17.4); ARTERIAL BLOOD GAS O2 SAT 99.2 % (95-98); ARTERIAL BLOOD GAS PCO2 16 mm/Hg (35-45); ARTERIAL BLOOD GAS PO2 121 mm/Hg (80-100); ARTERIAL BLOOD GAS TCO2 8.4 mmol/L (22-28)
[2018-04-06] MEDS ORDERED: (Novolin R) Insulin Human Regular 100 units/ml vial ONE (05:57)
[2018-04-06] MEDS ORDERED: Insulin Human Regular 100 UNIT in Sodium Chloride 0.9% 99 ML IV SCH (06:00)
[2018-04-06 06:21] LABS: BANDS 2 % (0-2); LYMPHOCYTE 10 % (20-40); MONOCYTE 3 % (0-10); NEUTROPHIL 85 % (50-75); PLATELET ESTIMATE NORMAL (NORMAL); TOTAL CELLS COUNTED 100
[2018-04-06 06:28] LABS: ALB/GLOB RATIO 1.5 (1.0-2.1); ALBUMIN 4.5 g/dL (3.5-5.0); ALT/SGPT 39 U/L (21-72); AST/SGOT 55 U/L (17-59); BLOOD UREA NITROGEN 18 mg/dL (9-20); CALCIUM 8.2 mg/dl (8.6-10.4); GFR NON-AFRICAN AMERICAN > 60; LIPASE 127 U/L (23-300)
[2018-04-06] MEDS ORDERED: Sodium Chloride 0.9% 1,000 ML ONE (06:40)
[2018-04-06 07:33] LABS: SQUAMOUS EPITHIAL < 1 /hpf (0-5); URINE BACTERIA RARE (<OCC); URINE BILIRUBIN NEGATIVE (NEGATIVE); URINE BLOOD 3+ (NEGATIVE); URINE CLARITY Clear (Clear); URINE COLOR Yellow (YELLOW); URINE GLUCOSE (UA) 3+ mg/dL (Normal); URINE LEUKOCYTE ESTERASE TRACE Leu/uL (Negative); URINE PROTEIN NEGATIVE (NEGATIVE); URINE UROBILINOGEN NORMAL mg/dL (0.2-1.0)
--- NOTE | 2018-04-06 07:51 | CP.PCM.CON ---
History of Present Illness - History of Present Illness History of Present Illness: Hospitalist Covering ICU Consult Note Patient was seen and examined in ER Bed #4 04/06/18 at 6:55 AM 42 year old male (PMHx: DM 2, Alcohol Abuse, Opiate Abuse, Gastritis, Anxiety) who presented to [facility] ER earlier this morning with chief complaint of vomiting blood. Patient was recently admitted to [facility] ICU for treatment of DKA but signed AMA (04/03/18 through 04/04/18). Currently upon FULL ROS: Complains of low back pain nonradiating chronic in nature and asking for narcotic pain medication N/V stating that he is vomiting dark red blood material (he was witnessed "vomiting" which was him coughing/bringing up clear white material) Soreness in throat NO abdominal pain NO chest pain NO palpitations NO SOB/Wheezing NO burning/pain with urination NO new changes in vision NO new changes in hearing NO paresthesias NO edema NO headache PMHx: DM 2, Alcohol Abuse, Opiate Abuse, Gastritis, Anxiety PSHx: Denies Allergies: NKDA Medications: Metformin 1,000 mg PO 2x/day (can not recall last use) Social Hx: 15 pack years of smoking, 3 beers every other day X 15 years and daily vodka 1 pint, Cocaine Abuse (this as per prior records but patient denied on my exam), Opiate Abuse (admits to Percocet but NOT Heroin) Family Hx: Mother [place] in 7th decade, Father [place] in 6th decade PMD: unspecified by patient General: Lethargic but following instructions and answering questions HEENT: NCA, EOMI, PERRLA, NO cervical/supraclavicular/submandibular lymphadenopathy but complains of pain when palpating these areas, NO thyromegaly, Nasal Turbinates and Oral Mucosa are dry, NO pharyngeal erythema/exudate Cardio: NS1 and NS2, NO M/R/G GI: BSx4, Soft, NT, ND, NO guarding/rebound tenderness, NO HSM up palpation Resp: CTA B/L, NO R/R/W (+) upper airway sounds with inspiration Ext: Pulses are strong and equal, Capillary Refill is 2 seconds, NO edema, Multiple excoriations on lower legs and scattered on upper arms all without any evidence of surrounding cellulitis Neuro: CN II through XII are grossly intact, Muscle strength was not checked at this time Skin: Full body skin exam did not reveal any ulcerations on any part of the skin or on any of the bony prominences or between webbing of toes : NO evidence of peritoneal/scrotal erythema or skin breakdown, NO rectal/anal abscess palpated with NO gross blood on glove Assessment and Plan: 1). DKA Anion Gap is 34, Bicarb < 15, Urine + Ketones, Blood Glucose > 250 5 units of Regular Insulin given in the ER Started on Regular Insulin Drip at 7 units per hour based upon 0.1 units/kg/hour Received 2 liter NS boluses in ER and started on /2 NS at 250 ml/hr as potassium is below 5.3 and Insulin Drip started with goal of receiving 4 liters by 1:30 PM today 04/06/18 Add D5 to the fluids once blood glucose reaches 250 with goal of keeping blood glucose between 150 and 200 for the next 24 hours Accuchecks Q1H Vitals Q2H BMP, Mag, Phos, Serum Osm Q4H x 6 starting at 8 AM Beta Hydroxybuturic Acid, HgBA1C, TSH, Free T4, Lipids at 8 AM F/U Blood Culture F/U Urine Culture F/U UDS F/U Rapid Influenza Chest X Ray does not show any active disease as per my reading F/U further recommendations from Endocrine Dr. Ulrich 2). Alcohol Abuse Last drink of alcohol was Vodka a few hours before he presented to ER Folic Acid 1 mg PO 1x/day Thiamine 100 mg PO 1x/day MVI 1 capsule PO 1x/day Ativan 1 mg IV Q6H PRN signs of withdrawl 3). C/O Nausea and Vomiting Blood Could be secondary to the DKA CT Abdomen Pelvis 04/03/18: suspicious for enteritis, moderate fatty liver infiltration Monitor HgB/Hct which is currently normal HOLD anticoagulation for now NO evidence of this during my exam when patient was "vomiting" Zofran 4 mg IV Q6H PRN N/V Reglan 10 mg IV Q6H PRN N/V Protonix 40 mg IV Q12H fow now Should resolve with treatment of the DKA 4). Hx of Opiate Abuse Patient states that his last use of Percocet was 1 month ago but denies current Cocaine or Heroin abuse F/U UDS 5). Prophylaxis Protonix 40 mg IV Q12H NO anticoagulation for DVT prophylaxis considering patient's complaints. Therefore Bilateral SCDs NPO for now until anion gap closes Misha Gill D.O. Past Patient History - Infectious Disease Hx of Infectious Diseases: None - Tetanus Immunizations Tetanus Immunization: Unknown - Past Medical History & Family History Past Medical History?: Yes - Past Social History Smoking Status: Heavy Smoker > 10 Cigarettes Daily - CARDIAC Hx Hypertension: No - PULMONARY Hx Tuberculosis: No - NEUROLOGICAL Hx Seizures: No - HEENT Hx HEENT Problems: No - RENAL Hx Chronic Kidney Disease: No - ENDOCRINE/METABOLIC Hx Diabetes Mellitus Type 2: Yes - HEMATOLOGICAL/ONCOLOGICAL Hx Human Immunodeficiency Virus (HIV): No - INTEGUMENTARY Hx Dermatological Problems: No (TATTOO TO LEFT LEG.) - MUSCULOSKELETAL/RHEUMATOLOGICAL Hx Falls: Yes - GASTROINTESTINAL Hx Gastritis: Yes - GENITOURINARY/GYNECOLOGICAL Hx Sexually Transmitted Disorders: No - PSYCHIATRIC Hx Anxiety: Yes Hx Depression: No Hx Substance Use: Yes (denies) - SURGICAL HISTORY Hx Surgeries: No - ANESTHESIA Hx Anesthesia: Yes Hx Anesthesia Reactions: No Meds Allergies/Adverse Reactions: Allergies Allergy/AdvReac Type Severity Reaction Status Date / Time No Known Allergies Allergy Verified 04/03/18 14:18 - Medications Medications: Current Medications Folic Acid (Folic Acid) 1 mg PO DAILY [facility] Insulin Human Regular 100 unit (/ Sodium Chloride) 100 mls @ 7 mls/hr IV .[id number] [facility] Last Admin: 04/06/18 06:45 Dose: 7 mls/hr Potassium Chloride 30 meq/ (Sodium Chloride) 1,015 mls @ 250 mls/hr IV .Q4H4M [facility] Last Admin: 04/06/18 07:47 Dose: 250 mls/hr Lorazepam (Ativan) 1 mg IVP Q6H PRN PRN Reason: Symptoms of alcohol withdrawl Multivitamins (Hexavitamin) 1 tab PO DAILY [facility] Ondansetron HCl (Zofran Inj) 4 mg IVP Q6H PRN PRN Reason: Nausea/Vomiting Last Admin: 04/06/18 07:30 Dose: 4 mg Thiamine HCl (Vitamin B1 Tab) 100 mg PO DAILY [facility] Results - Vital Signs Recent Vital Signs: Last Vital Signs Temp 98.5 F 04/06/18 07:35 Pulse 125 H 04/06/18 07:35 Resp 26 H 04/06/18 07:35 BP 118/69 04/06/18 07:35 Pulse Ox 96 04/06/18 07:35 - Labs Result Diagrams: 04/06/18 05:39 04/06/18 05:39 Labs: Laboratory Results - last 24 hr 04/06/18 04/06/18 04/06/18 05:22 05:39 05:39 WBC 11.2 H RBC 3.96 L Hgb 12.4 Hct 35.9 MCV 90.7 MCH 31.2 H MCHC 34.5 RDW 13.3 Plt Count 150 MPV 9.1 Neut % (Auto) 89.6 H Lymph % (Auto) 6.1 L Bryan % (Auto) 3.5 Eos % (Auto) 0.1 Baso % (Auto) 0.7 Neut # (Auto) 10.0 H Lymph # (Auto) 0.7 L Bryan # (Auto) 0.4 Eos # (Auto) 0.0 Baso # (Auto) 0.1 Neutrophils % (Manual) 85 H Band Neutrophils % 2 Lymphocytes % (Manual) 10 L Monocytes % (Manual) 3 Platelet Estimate Normal Puncture Site pCO2 pO2 HCO3 ABG pH ABG Total CO2 ABG O2 Saturation ABG Base Excess ABG Hemoglobin ABG Carboxyhemoglobin POC ABG HHb (Measured) ABG Methemoglobin Nathaniel Test A-a O2 Difference Respiratory Index Hgb O2 Saturation Liter Flow Vent Mode FiO2 Crit Value Called To Crit Value Called By Crit Value Read Back Blood Gas Notified Time Sodium 124 L Potassium 4.0 Chloride 84 L Carbon Dioxide 6 L* D Anion Gap 38 H BUN 18 Creatinine 0.9 Est GFR ( Amer) > 60 Est GFR (Non-Af Amer) > 60 POC Glucose (mg/dL) 438 H* Random Glucose 511 H* D Calcium 8.2 L Total Bilirubin 1.3 AST 55 ALT 39 Alkaline Phosphatase 130 H D Total Protein 7.7 Albumin 4.5 Globulin 3.1 Albumin/Globulin Ratio 1.5 Lipase 127 Urine Color Urine Clarity Urine pH Ur Specific [place] Urine Protein Urine Glucose (UA) Urine Ketones Urine Blood Urine Nitrate Urine Bilirubin Urine Urobilinogen Ur Leukocyte Esterase Urine WBC (Auto) Urine RBC (Auto) Ur Squamous Epith Cells Urine Bacteria Alcohol, Quantitative 81 H B-Hydroxybutyrate 9.06 H 04/06/18 04/06/18 04/06/18 05:45 07:06 07:08 WBC RBC Hgb Hct MCV MCH MCHC RDW Plt Count MPV Neut % (Auto) Lymph % (Auto) Bryan % (Auto) Eos % (Auto) Baso % (Auto) Neut # (Auto) Lymph # (Auto) Bryan # (Auto) Eos # (Auto) Baso # (Auto) Neutrophils % (Manual) Band Neutrophils % Lymphocytes % (Manual) Monocytes % (Manual) Platelet Estimate Puncture Site Rr pCO2 16 L* pO2 121 H HCO3 12.3 L ABG pH 7.30 L ABG Total CO2 8.4 L ABG O2 Saturation 99.2 H ABG Base Excess -16.1 L ABG Hemoglobin 12.3 ABG Carboxyhemoglobin 3.3 H POC ABG HHb (Measured) 0.8 ABG Methemoglobin 1.6 Nathaniel Test Pos A-a O2 Difference 59.0 Respiratory Index 0.5 Hgb O2 Saturation 94.3 L Liter Flow 2.0 Vent Mode Bipap FiO2 28.0 Crit Value Called To Dr teddy hodges/dottie Crit Value Called By Kyrie castillo/rt Crit Value Read Back Y Blood Gas Notified Time 550 Sodium Potassium Chloride Carbon Dioxide Anion Gap BUN Creatinine Est GFR ( Amer) Est GFR (Non-Af Amer) POC Glucose (mg/dL) 332 H Random Glucose Calcium Total Bilirubin AST ALT Alkaline Phosphatase Total Protein Albumin Globulin Albumin/Globulin Ratio Lipase Urine Color Yellow Urine Clarity Clear Urine pH 5.0 Ur Specific [place] 1.022 Urine Protein Negative Urine Glucose (UA) 3+ H Urine Ketones 2+ H Urine Blood 3+ H Urine Nitrate Negative Urine Bilirubin Negative Urine Urobilinogen Normal Ur Leukocyte Esterase Trace Urine WBC (Auto) 5 Urine RBC (Auto) 1 Ur Squamous Epith Cells < 1 Urine Bacteria Rare Alcohol, Quantitative B-Hydroxybutyrate
[2018-04-06 07:54] LABS: BARBITURATES, UR NEGATIVE (NEGATIVE); OPIATES, UR NEGATIVE (NEGATIVE); PHENCYCLIDINE, UR NEGATIVE (NEGATIVE)
[2018-04-06 08:22] LABS: BENZODIAZEPINES, UR POSITIVE (NEGATIVE)
[2018-04-06] MEDS: Potassium Chloride 30 MEQ in Dextrose 5%/0.45% NS 1,000 ML IV SCH ×5 (08:39→23:18)
[2018-04-06 08:42] LABS: LDL CHOLESTEROL 72 mg/dL (0-129)
[2018-04-06 08:47] LABS: FREE T4 0.7 ng/dL (0.78-2.19)
[2018-04-06 08:50] LABS: BARBITURATES, UR NEGATIVE (NEGATIVE); OPIATES, UR NEGATIVE (NEGATIVE); PHENCYCLIDINE, UR NEGATIVE (NEGATIVE)
[2018-04-06 08:50] LABS: BLOOD UREA NITROGEN 12 mg/dL (9-20); CALCIUM 6.3 mg/dl (8.6-10.4); GFR NON-AFRICAN AMERICAN > 60; HDL CHOLESTEROL 39 mg/dL (30-70)
--- NOTE | 2018-04-06 08:54 | RAD ---
Chest x-ray single frontal view HISTORY: Diabetic. COMPARISON: 04/03/2018 Findings: Mild venous congestion. Right hilar prominence. Mild patchy increased markings in the right infrahilar region. Upper lobe granulomatous changes. Heart size within normal limits. Degenerative changes in the spine. Deformity of the mid left clavicle, chronic. Impression: Mild venous congestion. Right hilar prominence. Mild patchy increased markings in the right infrahilar region. Upper lobe granulomatous changes. Heart size within normal limits. Degenerative changes in the spine. Deformity of the mid left clavicle, chronic.
[2018-04-06 09:16] LABS: BENZODIAZEPINES, UR POSITIVE (NEGATIVE)
[2018-04-06] MEDS: Multiple Vitamins Tab PO SCH (10:05)
[2018-04-06 10:22] LABS: BLOOD UREA NITROGEN 13 mg/dL (9-20); CALCIUM 7.4 mg/dl (8.6-10.4); GFR NON-AFRICAN AMERICAN > 60
[2018-04-06] MEDS: Insulin Human Regular 100 UNIT in Sodium Chloride 0.9% 99 ML IV SCH (11:00)
[2018-04-06 13:43] LABS: BLOOD UREA NITROGEN 13 mg/dL (9-20); CALCIUM 7.9 mg/dl (8.6-10.4); GFR NON-AFRICAN AMERICAN > 60
[2018-04-06 20:00] LABS: BLOOD UREA NITROGEN 12 mg/dL (9-20); GFR NON-AFRICAN AMERICAN > 60
[2018-04-06] MEDS ORDERED: Potassium Phosphate 15 MMOLE in Dextrose 5% In Water 250 ML IVPB ONE (20:16)
[2018-04-06] MEDS: Magnesium Sulfate 1 gm in D5W 1 GM/100 ML BAG IVPB SCH ×2 (20:25→20:55)
[2018-04-07] MEDS ORDERED: Potassium Phosphate 15 MMOLE in Sodium Chloride 0.9% 250 ML IV ONE (02:00)
[2018-04-07] MEDS: Insulin Human Regular 100 UNIT in Sodium Chloride 0.9% 99 ML IV SCH ×2 (02:02→11:07)
[2018-04-07] MEDS: Potassium Chloride 30 MEQ in Dextrose 5%/0.45% NS 1,000 ML IV SCH ×3 (02:04→11:31)
[2018-04-07 06:34] LABS: HEMOGLOBIN 10.9 g/dL (12.0-18.0); MEAN CELL VOLUME 88.4 fL (80.0-94.0); MEAN PLATELET VOLUME 8.2 fL (7.2-11.7); RBC 3.51 Mil/uL (4.40-5.90); RED CELL DISTRIBUTION WIDTH 13.8 % (11.5-14.5); WHITE BLOOD COUNT 6.4 K/uL (4.8-10.8)
[2018-04-07 06:45] LABS: BLOOD UREA NITROGEN 6 mg/dL (9-20); CALCIUM 7.3 mg/dl (8.6-10.4); GFR NON-AFRICAN AMERICAN > 60
[2018-04-07 06:47] LABS: LDL CHOLESTEROL 102 mg/dL (0-129)
[2018-04-07 06:48] LABS: BLOOD UREA NITROGEN 6 mg/dL (9-20); CALCIUM 7.2 mg/dl (8.6-10.4); GFR NON-AFRICAN AMERICAN > 60; HDL CHOLESTEROL 42 mg/dL (30-70)
[2018-04-07 06:49] LABS: IRON 22 ug/dL (49-181)
[2018-04-07 06:58] LABS: % IRON SATURATION 10 (20-55); TOTAL IRON BINDING CAPACITY 223 ug/dL (250-450)
--- NOTE | 2018-04-07 07:40 | CON ---
DATE: 04/06/2018 HISTORY OF PRESENT ILLNESS: This is a 42-year-old male with known history of type 2 diabetes, presenting here with generalized body weakness and supervening upper abdominal pain with intractable vomiting episodes and was found to be in diabetic ketoacidosis and dehydration, is being referred now for diabetic evaluation and management. He was actually here over a day ago with AAA and signed out against medical advice as per the nursing staff. PAST MEDICAL HISTORY: As mentioned above, history of type 2 diabetes, currently on metformin given as 1 g b.i.d., history of hypertension, and dyslipidemia. FAMILY HISTORY: Positive for diabetes and hypertension. SOCIAL HISTORY: The patient has a history of chronic alcoholism. The patient admits failure with nicotine dependence. REVIEW OF SYSTEMS: Admits to generalized body weakness with episodic bouts of dizziness and lightheadedness from these episodes with diffuse upper abdominal pain, also admits to marked polyuria, nocturia, and polydipsia as noted. PHYSICAL EXAMINATION: GENERAL: This is an average built male, in no apparent distress. VITAL SIGNS: Blood pressure of . HEENT: Head, normocephalic. Eyes anicteric with pink conjunctivae. Funduscopy not possible at this time. Ears, nose, and throat otherwise normal. NECK: Supple. Thyroid gland is normal size. No carotid bruits or any cervical adenopathy. CARDIOPULMONARY: Adynamic precordium. S1 and S2 are rapid and regular. LUNGS: Clear to auscultation. ABDOMEN: Flat, soft, with positive bowel sounds. EXTREMITIES: No peripheral edema. Pulses are +2 bilaterally. LABORATORY DATA: 12.3% which is extremely elevated and given metabolic control condition. His glucose levels have ranged from 164 to 197 mg/dL. His latest chemistries show a BUN of 18, sodium 134, potassium 4, chloride 84, CO2 of 26, glucose is 511, and creatinine is 0.9. ASSESSMENT: This is a 42-year-old with diabetes mellitus type 2 insulin-requiring diabetes, presenting here with diabetic ketoacidosis. . Khushi Ulrich MD
[2018-04-07 07:43] LABS: FOLATE 4.3 ng/mL
[2018-04-07] MEDS ORDERED: Multivitamin (MVI) 10 ML, Thiamine 100 MG, Folic Acid 1 MG in Sodium Chloride 0.9% 1,00... IV ONE (07:48)
[2018-04-07] MEDS ORDERED: Potassium Phosphate 30 MMOLE in Sodium Chloride 0.9% 500 ML IV ONE (08:00)
--- NOTE | 2018-04-07 09:53 | CARD ---
APPROVED REPORT Date of service: 04/06/2018 EKG Measurement Heart [id number] ID [id number] <Conclusion> Sinus tachycardia Otherwise normal ECG
[2018-04-07] MEDS: Multiple Vitamins Tab PO SCH (10:00)
[2018-04-07] MEDS: Enoxaparin 40 mg Syringe SC SCH (10:32)
--- NOTE | 2018-04-07 10:49 | HP ---
DATE OF EXAM: 04/06/2018 The patient was seen and examined at the beside on 04/06/2018. CHIEF COMPLAINT: Nausea and vomiting. HISTORY OF PRESENT ILLNESS: Mr. Jared Escamilla is a 42-year-old male with past medical history of alcohol abuse, opiate abuse, gastritis, and anxiety, came to the emergency room of [facility] with nausea and vomiting. The patient was recently admitted at [facility] in the ICU for treatment of DKA. Signed against medical advice on 04/03/2018. Now came back complaining of low back pain, not radiating and according to him, he is using narcotics for back pain. Nausea and vomiting started. He is vomiting dark red blood material. Coughing, bringing phlegm, soreness in the throat. PAST MEDICAL HISTORY: Diabetes mellitus, alcohol abuse, opiate abuse, gastritis, and anxiety. PAST SURGICAL HISTORY: Denied. ALLERGIES: THE PATIENT IS NOT ALLERGIC WITH ANY MEDICATIONS. HOME MEDICATIONS: Metformin. FAMILY HISTORY: Mother; [place] in 7th decade. Father; [place] in 6th decade. SOCIAL HISTORY: Fifteen pack year of smoking, 3 beer everyday for 15 years daily, vodka 1 pint, cocaine abuse. The patient denies , opiate abuse, admits to Percocet, but not heroin. REVIEW OF SYSTEMS: The patient was seen and examined at the bedside. Still nauseous and vomiting. No fever. No chills. No hematuria. No hematochezia. No swelling of the legs. No chest pain. No palpitation, but still nauseous. No coughing. PHYSICAL EXAMINATION VITAL SIGNS: Temperature is 97.9, pulse 123, respiratory rate 28, blood pressure 125/86. HEENT: Head; normocephalic, atraumatic. Eyes PERRLA. Extraocular muscles intact. Conjunctivae clear. Nose patent. Mucous membranes moist. NECK: Supple. No carotid bruits. No JVD or thyromegaly. CHEST: Bilaterally symmetrical. HEART: S1, S2 positive. LUNGS: Clear to auscultation. ABDOMEN: Soft. Bowel sounds positive. No organomegaly. EXTREMITIES: No edema, no cyanosis. NEUROLOGIC: The patient is awake and alert. Moving all four extremities. No focal deficits. LABORATORY DATA: White blood cells 11.3, hemoglobin 12.4, hematocrit 35.9, and platelets 150. Sodium 124, potassium 4.0, BUN 18, creatinine 0.9, glucose of 511. ASSESSMENT AND PLAN: Mr. Jared Escamilla is a 42-year-old male with leukocytosis, hyponatremia, hypochloremia, and hyperglycemia, is admitted for diabetic ketoacidosis and hyperglycemia. The patient is very noncompliant. Signed against medical advice, last admission with diabetic ketoacidosis. The patient's blood sugar was low, got dextrose, history of alcohol abuse, opiate abuse, gastritis, and anxiety. Using metformin for diabetes as per patient. Getting insulin drip. Vitals every 2 hours. Electrolytes adjusted. Blood test ordered. Follow up blood cultures. Follow up urine cultures. Chest x-ray does not show any active disease as per radiology reading. History of opiate use. Gastrointestinal and deep venous thrombosis prophylaxis given. Urge to be compliant. Repeat labs. We will follow up. Harmony Leyva MD MTDD
[2018-04-07] MEDS ORDERED: (Novolin R) Insulin Human Regular 100 units/ml vial SC SCH (11:30)
[2018-04-07] MEDS: Piperacill/Tazo 3.375gm in Dex 3.375 GM/50 ML BAG IVPB SCH ×3 (11:49→22:32)
--- NOTE | 2018-04-07 12:11 | PCM.PSYCH ---
Initial Psychiatric Evaluation - Initial Psychiatric Evaluation Type of Admission: Voluntary Legal Status: Capacity History of Present Illness and Precipitating Events: Patient (ICU4) is a 42 year old male who is currently single, lives with his father, and is unemployed. He says that he admitted himself to the hospital after drinking a pint of vodka two days ago. He normally drinks a pint of vodka per day. He has been abusing alcohol for a couple of years now. He states that he has been to detox last year. He has attended AA meetings in the past but stopped going. He denies feeling depressed, feelings of wanting to hurt himself or others, or hearing voices. He denies having racing thoughts. He states that his sleep hasn't been great lately and that he has low energy. He denies illict drug use. He currently smokes a pack a day for 20 years. Past Psych Hx: Denies Past Medical Hx: Type II Diabetes Current Medications: - Past Family Psych Hx: Denies. Assessment: Alcohol Use Disorder, severe. Plan: Taper with librium. Attend groups and activities Individual therapy daily Psychoeducation and support daily Encourage compliance with meds and after care Current Medications: Active Medications Generic Name Dose Route Start Last Admin Trade Name Freq PRN Reason Stop Dose Admin Enoxaparin Sodium 40 mg 04/07/18 10:00 04/07/18 10:32 Lovenox SC 40 mg DAILY LUCILA Administration Folic Acid 1 mg 04/06/18 10:00 04/07/18 10:00 Folic Acid PO Not Given DAILY [facility] Potassium Chloride 30 meq/ 1,015 mls @ 250 mls/hr 04/06/18 08:15 04/07/18 11:31 Dextrose/Sodium Chloride IV 250 mls/hr .Q4H4M [facility] Administration Insulin Human Regular 100 unit 100 mls @ 7 mls/hr 04/06/18 11:02 04/07/18 11:07 / Sodium Chloride IV 2 ml/hr .[id number] LUCILA 2 mls/hr Administration Protocol Multivitamins/Vitamin C 10 ml/ 1,011.2 mls @ 100 mls/hr 04/07/18 07:48 04/07/18 08:00 Thiamine HCl 100 mg/ Folic IV 04/07/18 17:54 100 mls/hr Acid 1 mg/ Sodium Chloride .Q10H7M ONE Administration Potassium Phosphate 30 mmole/ 510 mls @ 63 mls/hr 04/07/18 08:00 04/07/18 08:00 Sodium Chloride IV 04/07/18 16:05 63 mls/hr ONCE ONE Administration Piperacillin Sod/Tazobactam Sod 3.375 gm in 50 mls @ 100 mls/hr 04/07/18 11:00 Zosyn 3.375 Gm Iv Premix IVPB Q6H [facility]UC[facility]A Protocol Lorazepam 1 mg 04/06/18 07:32 Ativan IVP Q6H PRN Symptoms of alcohol withdrawl Metoclopramide HCl 10 mg 04/06/18 10:30 04/06/18 10:30 Reglan IVP 10 mg Q6H PRN Administration Nausea/Vomiting Multivitamins 1 tab 04/06/18 10:00 04/07/18 10:00 Hexavitamin PO Not Given DAILY [facility] Ondansetron HCl 4 mg 04/06/18 07:20 04/07/18 05:00 Zofran Inj IVP 4 mg Q6H PRN Administration Nausea/Vomiting Thiamine HCl 100 mg 04/06/18 10:00 04/07/18 10:00 Vitamin B1 Tab PO Not Given DAILY [facility] Past Psychiatric History - Past Psychiatric History Pertinent Medical Hx (Current Medical&Sleep Prob, Allergies): Allergies Allergy/AdvReac Type Severity Reaction Status Date / Time No Known Allergies Allergy Verified 04/03/18 14:18 metFORMIN [glucOPHAGE] 1,000 mg PO BID 30 Days #60 tab 06/26/17 traZODone [Desyrel] 100 mg PO HS #30 tab 06/26/17
--- NOTE | 2018-04-07 12:27 | RAD ---
Date of service: 04/07/2018 HISTORY: PNA COMPARISON: Comparison chest dated 04/06/2018 FINDINGS: LUNGS: There appears to be some minor left basilar atelectasis PLEURA: No significant pleural effusion identified, no pneumothorax apparent. CARDIOVASCULAR: No aortic atherosclerotic calcification present. Normal cardiac size. No pulmonary vascular congestion. OSSEOUS STRUCTURES: No significant abnormalities. VISUALIZED UPPER ABDOMEN: Normal. OTHER FINDINGS: None. IMPRESSION: Minor left basilar atelectasis..
[2018-04-07 16:13] LABS: BLOOD UREA NITROGEN 3 mg/dL (9-20); GFR NON-AFRICAN AMERICAN > 60
--- NOTE | 2018-04-07 16:44 | CP.CCUPN ---
CCU Subjective - Physician Review Subjective (Free Text): 04/07/18 16:41 Brooklynn Zelaya PGY1 Progress Note for Dr. Thurman Pt was examined at bedside this morning. He reported not feeling well. He reported nausea and spitting up phlegm, and complained of a sore throat. He denied dizziness, headache, chest pain, abdominal pain, diarrhea, dysuria. 04/07/18 16:44 CCU Objective - Vital Signs / Intake & Output Intake and Output (Last 8hrs): Intake & Output 04/07/18 04/07/18 04/07/18 06:59 14:59 22:59 Intake Total 2717 3220.5 415 Output Total 2400 1200 300 Balance 317 2020.5 115 Weight 162 lb 12.8 oz Intake: IV 24 59.5 Intake, IV Amount 2643 3161 415 Left Distal Port Upper 441 63 arm Left Forearm 1999 1999 250 Left Upper arm 700 100 Left Wrist 25 20 2 RFA #[id number] Right Forearm 200 Oral 50 Output: Urine 2400 1200 300 Urine, Voided 2400 1200 300 - Physical Exam Head: Positive for: Atraumatic, Normocephalic Pupils: Positive for: PERRL Extroacular Muscles: Positive for: EOMI Conjunctiva: Positive for: Normal Mouth: Positive for: Moist Mucous Membranes Pharnyx: Positive for: Normal, Muffled/Hoarse Voice Neck: Positive for: Normal Range of Motion Respiratory/Chest: Positive for: Rales, Other. Negative for: Respiratory Distress, Wheezes, Rhonchi Cardiovascular: Positive for: Regular Rate and Rhythm, Normal S1, S2. Negative for: Murmurs Abdomen: Positive for: Normal Bowel Sounds. Negative for: Tenderness, Distention, Peritoneal Signs Upper Extremity: Positive for: Normal Inspection. Negative for: Cyanosis, Edema Lower Extremity: Positive for: Normal Inspection. Negative for: Edema Neurological: Positive for: GCS=15, CN II-XII Intact, Speech Normal Skin: Positive for: Warm, Dry, Normal Color Psychiatric: Positive for: Alert, Oriented x 3 - Medications Active Medications: Active Medications Generic Name Dose Route Start Last Admin Trade Name Freq PRN Reason Stop Dose Admin Enoxaparin Sodium 40 mg 04/07/18 10:00 04/07/18 10:32 Lovenox SC 40 mg DAILY LUCILA Administration Folic Acid 1 mg 04/06/18 10:00 04/07/18 10:00 Folic Acid PO Not Given DAILY [facility] Potassium Chloride 30 meq/ 1,015 mls @ 250 mls/hr 04/06/18 08:15 04/07/18 11:31 Dextrose/Sodium Chloride IV 250 mls/hr .[id number] LUCILA Administration Insulin Human Regular 100 unit 100 mls @ 7 mls/hr 04/06/18 11:02 04/07/18 11:07 / Sodium Chloride IV 2 ml/hr .[id number] LUCILA 2 mls/hr Administration Protocol Multivitamins/Vitamin C 10 ml/ 1,011.2 mls @ 100 mls/hr 04/07/18 07:48 04/07/18 08:00 Thiamine HCl 100 mg/ Folic IV 04/07/18 17:54 100 mls/hr Acid 1 mg/ Sodium Chloride .[id number] ONE Administration Piperacillin Sod/Tazobactam Sod 3.375 gm in 50 mls @ 100 mls/hr 04/07/18 11:00 Zosyn 3.375 Gm Iv Premix IVPB Q6H [facility] Protocol Lorazepam 1 mg 04/06/18 07:32 Ativan IVP Q6H PRN Symptoms of alcohol withdrawl Metoclopramide HCl 10 mg 04/06/18 10:30 04/06/18 10:30 Reglan IVP 10 mg Q6H PRN Administration Nausea/Vomiting Multivitamins 1 tab 04/06/18 10:00 04/07/18 10:00 Hexavitamin PO Not Given DAILY [facility] Ondansetron HCl 4 mg 04/06/18 07:20 04/07/18 05:00 Zofran Inj IVP 4 mg Q6H PRN Administration Nausea/Vomiting Thiamine HCl 100 mg 04/06/18 10:00 04/07/18 10:00 Vitamin B1 Tab PO Not Given DAILY [facility]A - Patient Studies Lab Studies: Microbiology Studies 04/06/18 08:23 Blood Culture - Preliminary Blood-Venous NO GROWTH AFTER 24 HOURS 04/06/18 08:14 Blood Culture - Preliminary Blood-Venous NO GROWTH AFTER 24 HOURS Lab Studies 04/07/18 04/07/18 04/07/18 Range/Units 16:04 15:31 14:53 WBC (4.8-10.8) K/uL RBC (4.40-5.90) Mil/uL Hgb (12.0-18.0) g/dL Hct (35.0-51.0) % MCV (80.0-94.0) fL MCH (27.0-31.0) pg MCHC (33.0-37.0) g/dL RDW (11.5-14.5) % Plt Count (130-400) K/uL MPV (7.2-11.7) fL Sodium 128 L (132-148) mmol/L Potassium 3.0 L (3.6-5.2) mmol/L Chloride 97 L (98-107) mmol/L Carbon Dioxide 25 (22-30) mmol/L Anion Gap 9 L (10-20) BUN 3 L (9-20) mg/dL Creatinine 0.4 L (0.8-1.5) mg/dL Est GFR ( Amer) > 60 Est GFR (Non-Af Amer) > 60 POC Glucose (mg/dL) 127 H 152 H (65-110) mg/dL Random Glucose 137 H (75-110) mg/dL Hemoglobin A1c (4.2-6.5) % Serum Osmolality (272-300) mosm/kg Calcium 7.0 L (8.6-10.4) mg/dl Phosphorus (2.5-4.5) mg/dL Magnesium (1.6-2.3) mg/dL Iron (49-181) ug/dL TIBC (250-450) ug/dL % Saturation (20-55) Triglycerides (0-149) mg/dL Cholesterol (0-199) mg/dL LDL Cholesterol Direct (0-129) mg/dL HDL Cholesterol (30-70) mg/dL Vitamin B12 (239-931) pg/mL Folate ng/mL TSH 3rd Generation (0.46-4.68) mIU/L 04/07/18 04/07/18 04/07/18 Range/Units 14:38 13:12 13:10 WBC (4.8-10.8) K/uL RBC (4.40-5.90) Mil/uL Hgb (12.0-18.0) g/dL Hct (35.0-51.0) % MCV (80.0-94.0) fL MCH (27.0-31.0) pg MCHC (33.0-37.0) g/dL RDW (11.5-14.5) % Plt Count (130-400) K/uL MPV (7.2-11.7) fL Sodium (132-148) mmol/L Potassium (3.6-5.2) mmol/L Chloride (98-107) mmol/L Carbon Dioxide (22-30) mmol/L Anion Gap (10-20) BUN (9-20) mg/dL Creatinine (0.8-1.5) mg/dL Est GFR ( Amer) Est GFR (Non-Af Amer) POC Glucose (mg/dL) 185 H 233 H > 500 H* (65-110) mg/dL Random Glucose (75-110) mg/dL Hemoglobin A1c (4.2-6.5) % Serum Osmolality (272-300) mosm/kg Calcium (8.6-10.4) mg/dl Phosphorus (2.5-4.5) mg/dL Magnesium (1.6-2.3) mg/dL Iron (49-181) ug/dL TIBC (250-450) ug/dL % Saturation (20-55) Triglycerides (0-149) mg/dL Cholesterol (0-199) mg/dL LDL Cholesterol Direct (0-129) mg/dL HDL Cholesterol (30-70) mg/dL Vitamin B12 (239-931) pg/mL Folate ng/mL TSH 3rd Generation (0.46-4.68) mIU/L 04/07/18 04/07/18 04/07/18 Range/Units 12:09 11:03 10:15 WBC (4.8-10.8) K/uL RBC (4.40-5.90) Mil/uL Hgb (12.0-18.0) g/dL Hct (35.0-51.0) % MCV (80.0-94.0) fL MCH (27.0-31.0) pg MCHC (33.0-37.0) g/dL RDW (11.5-14.5) % Plt Count (130-400) K/uL MPV (7.2-11.7) fL Sodium (132-148) mmol/L Potassium (3.6-5.2) mmol/L Chloride (98-107) mmol/L Carbon Dioxide (22-30) mmol/L Anion Gap (10-20) BUN (9-20) mg/dL Creatinine (0.8-1.5) mg/dL Est GFR ( Amer) Est GFR (Non-Af Amer) POC Glucose (mg/dL) 160 H 167 H 181 H (65-110) mg/dL Random Glucose (75-110) mg/dL Hemoglobin A1c (4.2-6.5) % Serum Osmolality (272-300) mosm/kg Calcium (8.6-10.4) mg/dl Phosphorus (2.5-4.5) mg/dL Magnesium (1.6-2.3) mg/dL Iron (49-181) ug/dL TIBC (250-450) ug/dL % Saturation (20-55) Triglycerides (0-149) mg/dL Cholesterol (0-199) mg/dL LDL Cholesterol Direct (0-129) mg/dL HDL Cholesterol (30-70) mg/dL Vitamin B12 (239-931) pg/mL Folate ng/mL TSH 3rd Generation (0.46-4.68) mIU/L 04/07/18 04/07/18 04/07/18 Range/Units 08:54 08:01 07:00 WBC (4.8-10.8) K/uL RBC (4.40-5.90) Mil/uL Hgb (12.0-18.0) g/dL Hct (35.0-51.0) % MCV (80.0-94.0) fL MCH (27.0-31.0) pg MCHC (33.0-37.0) g/dL RDW (11.5-14.5) % Plt Count (130-400) K/uL MPV (7.2-11.7) fL Sodium (132-148) mmol/L Potassium (3.6-5.2) mmol/L Chloride (98-107) mmol/L Carbon Dioxide (22-30) mmol/L Anion Gap (10-20) BUN (9-20) mg/dL Creatinine (0.8-1.5) mg/dL Est GFR ( Amer) Est GFR (Non-Af Amer) POC Glucose (mg/dL) 348 H 192 H 221 H (65-110) mg/dL Random Glucose (75-110) mg/dL Hemoglobin A1c (4.2-6.5) % Serum Osmolality (272-300) mosm/kg Calcium (8.6-10.4) mg/dl Phosphorus (2.5-4.5) mg/dL Magnesium (1.6-2.3) mg/dL Iron (49-181) ug/dL TIBC (250-450) ug/dL % Saturation (20-55) Triglycerides (0-149) mg/dL Cholesterol (0-199) mg/dL LDL Cholesterol Direct (0-129) mg/dL HDL Cholesterol (30-70) mg/dL Vitamin B12 (239-931) pg/mL Folate ng/mL TSH 3rd Generation (0.46-4.68) mIU/L 04/07/18 04/07/18 04/07/18 Range/Units 06:22 06:22 06:16 WBC 6.4 (4.8-10.8) K/uL RBC 3.51 L (4.40-5.90) Mil/uL Hgb 10.9 L (12.0-18.0) g/dL Hct 31.1 L (35.0-51.0) % MCV 88.4 D (80.0-94.0) fL MCH 31.0 (27.0-31.0) pg MCHC 35.0 (33.0-37.0) g/dL RDW 13.8 (11.5-14.5) % Plt Count 177 (130-400) K/uL MPV 8.2 (7.2-11.7) fL Sodium (132-148) mmol/L Potassium (3.6-5.2) mmol/L Chloride (98-107) mmol/L Carbon Dioxide (22-30) mmol/L Anion Gap (10-20) BUN (9-20) mg/dL Creatinine (0.8-1.5) mg/dL Est GFR ( Amer) Est GFR (Non-Af Amer) POC Glucose (mg/dL) (65-110) mg/dL Random Glucose (75-110) mg/dL Hemoglobin A1c 12.2 H (4.2-6.5) % Serum Osmolality (272-300) mosm/kg Calcium (8.6-10.4) mg/dl Phosphorus (2.5-4.5) mg/dL Magnesium (1.6-2.3) mg/dL Iron 22 L (49-181) ug/dL TIBC 223 L (250-450) ug/dL % Saturation 10 L (20-55) Triglycerides (0-149) mg/dL Cholesterol (0-199) mg/dL LDL Cholesterol Direct (0-129) mg/dL HDL Cholesterol (30-70) mg/dL Vitamin B12 (239-931) pg/mL Folate ng/mL TSH 3rd Generation (0.46-4.68) mIU/L 04/07/18 04/07/18 04/07/18 Range/Units 06:16 06:16 06:16 WBC (4.8-10.8) K/uL RBC (4.40-5.90) Mil/uL Hgb (12.0-18.0) g/dL Hct (35.0-51.0) % MCV (80.0-94.0) fL MCH (27.0-31.0) pg MCHC (33.0-37.0) g/dL RDW (11.5-14.5) % Plt Count (130-400) K/uL MPV (7.2-11.7) fL Sodium 131 L (132-148) mmol/L Potassium 3.0 L (3.6-5.2) mmol/L Chloride 96 L (98-107) mmol/L Carbon Dioxide 23 (22-30) mmol/L Anion Gap 16 (10-20) BUN 6 L (9-20) mg/dL Creatinine 0.5 L (0.8-1.5) mg/dL Est GFR ( Amer) > 60 Est GFR (Non-Af Amer) > 60 POC Glucose (mg/dL) (65-110) mg/dL Random Glucose 182 H (75-110) mg/dL Hemoglobin A1c (4.2-6.5) % Serum Osmolality 272 (272-300) mosm/kg Calcium 7.3 L (8.6-10.4) mg/dl Phosphorus (2.5-4.5) mg/dL Magnesium (1.6-2.3) mg/dL Iron 23 L (49-181) ug/dL TIBC (250-450) ug/dL % Saturation (20-55) Triglycerides (0-149) mg/dL Cholesterol (0-199) mg/dL LDL Cholesterol Direct (0-129) mg/dL HDL Cholesterol (30-70) mg/dL Vitamin B12 (239-931) pg/mL Folate ng/mL TSH 3rd Generation 0.10 L (0.46-4.68) mIU/L 04/07/18 04/07/18 04/07/18 Range/Units 06:16 06:01 05:13 WBC (4.8-10.8) K/uL RBC (4.40-5.90) Mil/uL Hgb (12.0-18.0) g/dL Hct (35.0-51.0) % MCV (80.0-94.0) fL MCH (27.0-31.0) pg MCHC (33.0-37.0) g/dL RDW (11.5-14.5) % Plt Count (130-400) K/uL MPV (7.2-11.7) fL Sodium 130 L (132-148) mmol/L Potassium 3.0 L (3.6-5.2) mmol/L Chloride 95 L (98-107) mmol/L Carbon Dioxide 23 (22-30) mmol/L Anion Gap 15 (10-20) BUN 6 L (9-20) mg/dL Creatinine 0.5 L (0.8-1.5) mg/dL Est GFR ( Amer) > 60 Est GFR (Non-Af Amer) > 60 POC Glucose (mg/dL) 208 H 197 H (65-110) mg/dL Random Glucose 182 H (75-110) mg/dL Hemoglobin A1c (4.2-6.5) % Serum Osmolality (272-300) mosm/kg Calcium 7.2 L (8.6-10.4) mg/dl Phosphorus 0.8 L* (2.5-4.5) mg/dL Magnesium 2.1 (1.6-2.3) mg/dL Iron (49-181) ug/dL TIBC (250-450) ug/dL % Saturation (20-55) Triglycerides 142 D (0-149) mg/dL Cholesterol 159 (0-199) mg/dL LDL Cholesterol Direct 102 (0-129) mg/dL HDL Cholesterol 42 (30-70) mg/dL Vitamin B12 874 (239-931) pg/mL Folate 4.3 ng/mL TSH 3rd Generation (0.46-4.68) mIU/L 04/07/18 04/07/18 04/07/18 Range/Units 04:04 02:53 01:59 WBC (4.8-10.8) K/uL RBC (4.40-5.90) Mil/uL Hgb (12.0-18.0) g/dL Hct (35.0-51.0) % MCV (80.0-94.0) fL MCH (27.0-31.0) pg MCHC (33.0-37.0) g/dL RDW (11.5-14.5) % Plt Count (130-400) K/uL MPV (7.2-11.7) fL Sodium (132-148) mmol/L Potassium (3.6-5.2) mmol/L Chloride (98-107) mmol/L Carbon Dioxide (22-30) mmol/L Anion Gap (10-20) BUN (9-20) mg/dL Creatinine (0.8-1.5) mg/dL Est GFR ( Amer) Est GFR (Non-Af Amer) POC Glucose (mg/dL) 222 H 243 H 217 H (65-110) mg/dL Random Glucose (75-110) mg/dL Hemoglobin A1c (4.2-6.5) % Serum Osmolality (272-300) mosm/kg Calcium (8.6-10.4) mg/dl Phosphorus (2.5-4.5) mg/dL Magnesium (1.6-2.3) mg/dL Iron (49-181) ug/dL TIBC (250-450) ug/dL % Saturation (20-55) Triglycerides (0-149) mg/dL Cholesterol (0-199) mg/dL LDL Cholesterol Direct (0-129) mg/dL HDL Cholesterol (30-70) mg/dL Vitamin B12 (239-931) pg/mL Folate ng/mL TSH 3rd Generation (0.46-4.68) mIU/L 04/07/18 04/06/18 04/06/18 Range/Units 00:50 23:55 22:57 WBC (4.8-10.8) K/uL RBC (4.40-5.90) Mil/uL Hgb (12.0-18.0) g/dL Hct (35.0-51.0) % MCV (80.0-94.0) fL MCH (27.0-31.0) pg MCHC (33.0-37.0) g/dL RDW (11.5-14.5) % Plt Count (130-400) K/uL MPV (7.2-11.7) fL Sodium (132-148) mmol/L Potassium (3.6-5.2) mmol/L Chloride (98-107) mmol/L Carbon Dioxide (22-30) mmol/L Anion Gap (10-20) BUN (9-20) mg/dL Creatinine (0.8-1.5) mg/dL Est GFR ( Amer) Est GFR (Non-Af Amer) POC Glucose (mg/dL) 210 H 315 H 242 H (65-110) mg/dL Random Glucose (75-110) mg/dL Hemoglobin A1c (4.2-6.5) % Serum Osmolality (272-300) mosm/kg Calcium (8.6-10.4) mg/dl Phosphorus (2.5-4.5) mg/dL Magnesium (1.6-2.3) mg/dL Iron (49-181) ug/dL TIBC (250-450) ug/dL % Saturation (20-55) Triglycerides (0-149) mg/dL Cholesterol (0-199) mg/dL LDL Cholesterol Direct (0-129) mg/dL HDL Cholesterol (30-70) mg/dL Vitamin B12 (239-931) pg/mL Folate ng/mL TSH 3rd Generation (0.46-4.68) mIU/L 04/06/18 04/06/18 04/06/18 Range/Units 22:00 21:14 19:51 WBC (4.8-10.8) K/uL RBC (4.40-5.90) Mil/uL Hgb (12.0-18.0) g/dL Hct (35.0-51.0) % MCV (80.0-94.0) fL MCH (27.0-31.0) pg MCHC (33.0-37.0) g/dL RDW (11.5-14.5) % Plt Count (130-400) K/uL MPV (7.2-11.7) fL Sodium (132-148) mmol/L Potassium (3.6-5.2) mmol/L Chloride (98-107) mmol/L Carbon Dioxide (22-30) mmol/L Anion Gap (10-20) BUN (9-20) mg/dL Creatinine (0.8-1.5) mg/dL Est GFR ( Amer) Est GFR (Non-Af Amer) POC Glucose (mg/dL) 240 H 223 H 184 H (65-110) mg/dL Random Glucose (75-110) mg/dL Hemoglobin A1c (4.2-6.5) % Serum Osmolality (272-300) mosm/kg Calcium (8.6-10.4) mg/dl Phosphorus (2.5-4.5) mg/dL Magnesium (1.6-2.3) mg/dL Iron (49-181) ug/dL TIBC (250-450) ug/dL % Saturation (20-55) Triglycerides (0-149) mg/dL Cholesterol (0-199) mg/dL LDL Cholesterol Direct (0-129) mg/dL HDL Cholesterol (30-70) mg/dL Vitamin B12 (239-931) pg/mL Folate ng/mL TSH 3rd Generation (0.46-4.68) mIU/L 04/06/18 04/06/18 04/06/18 Range/Units 19:35 19:35 19:06 WBC (4.8-10.8) K/uL RBC (4.40-5.90) Mil/uL Hgb (12.0-18.0) g/dL Hct (35.0-51.0) % MCV (80.0-94.0) fL MCH (27.0-31.0) pg MCHC (33.0-37.0) g/dL RDW (11.5-14.5) % Plt Count (130-400) K/uL MPV (7.2-11.7) fL Sodium 129 L (132-148) mmol/L Potassium 2.9 L (3.6-5.2) mmol/L Chloride 95 L (98-107) mmol/L Carbon Dioxide 20 L (22-30) mmol/L Anion Gap 17 (10-20) BUN 12 (9-20) mg/dL Creatinine 0.6 L (0.8-1.5) mg/dL Est GFR ( Amer) > 60 Est GFR (Non-Af Amer) > 60 POC Glucose (mg/dL) 186 H (65-110) mg/dL Random Glucose 156 H (75-110) mg/dL Hemoglobin A1c (4.2-6.5) % Serum Osmolality 273 (272-300) mosm/kg Calcium 8.0 L (8.6-10.4) mg/dl Phosphorus 0.7 L* (2.5-4.5) mg/dL Magnesium 2.0 (1.6-2.3) mg/dL Iron (49-181) ug/dL TIBC (250-450) ug/dL % Saturation (20-55) Triglycerides (0-149) mg/dL Cholesterol (0-199) mg/dL LDL Cholesterol Direct (0-129) mg/dL HDL Cholesterol (30-70) mg/dL Vitamin B12 (239-931) pg/mL Folate ng/mL TSH 3rd Generation (0.46-4.68) mIU/L 04/06/18 04/06/18 04/06/18 Range/Units 18:02 17:03 16:45 WBC (4.8-10.8) K/uL RBC (4.40-5.90) Mil/uL Hgb (12.0-18.0) g/dL Hct (35.0-51.0) % MCV (80.0-94.0) fL MCH (27.0-31.0) pg MCHC (33.0-37.0) g/dL RDW (11.5-14.5) % Plt Count (130-400) K/uL MPV (7.2-11.7) fL Sodium (132-148) mmol/L Potassium (3.6-5.2) mmol/L Chloride (98-107) mmol/L Carbon Dioxide (22-30) mmol/L Anion Gap (10-20) BUN (9-20) mg/dL Creatinine (0.8-1.5) mg/dL Est GFR ( Amer) Est GFR (Non-Af Amer) POC Glucose (mg/dL) 225 H 218 H (65-110) mg/dL Random Glucose (75-110) mg/dL Hemoglobin A1c (4.2-6.5) % Serum Osmolality 347 H (272-300) mosm/kg Calcium (8.6-10.4) mg/dl Phosphorus (2.5-4.5) mg/dL Magnesium (1.6-2.3) mg/dL Iron (49-181) ug/dL TIBC (250-450) ug/dL % Saturation (20-55) Triglycerides (0-149) mg/dL Cholesterol (0-199) mg/dL LDL Cholesterol Direct (0-129) mg/dL HDL Cholesterol (30-70) mg/dL Vitamin B12 (239-931) pg/mL Folate ng/mL TSH 3rd Generation (0.46-4.68) mIU/L 04/06/18 Range/Units 16:43 WBC (4.8-10.8) K/uL RBC (4.40-5.90) Mil/uL Hgb (12.0-18.0) g/dL Hct (35.0-51.0) % MCV (80.0-94.0) fL MCH (27.0-31.0) pg MCHC (33.0-37.0) g/dL RDW (11.5-14.5) % Plt Count (130-400) K/uL MPV (7.2-11.7) fL Sodium (132-148) mmol/L Potassium (3.6-5.2) mmol/L Chloride (98-107) mmol/L Carbon Dioxide (22-30) mmol/L Anion Gap (10-20) BUN (9-20) mg/dL Creatinine (0.8-1.5) mg/dL Est GFR ( Amer) Est GFR (Non-Af Amer) POC Glucose (mg/dL) 209 H (65-110) mg/dL Random Glucose (75-110) mg/dL Hemoglobin A1c (4.2-6.5) % Serum Osmolality (272-300) mosm/kg Calcium (8.6-10.4) mg/dl Phosphorus (2.5-4.5) mg/dL Magnesium (1.6-2.3) mg/dL Iron (49-181) ug/dL TIBC (250-450) ug/dL % Saturation (20-55) Triglycerides (0-149) mg/dL Cholesterol (0-199) mg/dL LDL Cholesterol Direct (0-129) mg/dL HDL Cholesterol (30-70) mg/dL Vitamin B12 (239-931) pg/mL Folate ng/mL TSH 3rd Generation (0.46-4.68) mIU/L Laboratory Results - last 24 hr 04/06/18 04/06/18 04/06/18 16:43 16:45 17:03 WBC RBC Hgb Hct MCV MCH MCHC RDW Plt Count MPV Sodium Potassium Chloride Carbon Dioxide Anion Gap BUN Creatinine Est GFR ( Amer) Est GFR (Non-Af Amer) POC Glucose (mg/dL) 209 H 218 H Random Glucose Hemoglobin A1c Serum Osmolality 347 H Calcium Phosphorus Magnesium Iron TIBC % Saturation Triglycerides Cholesterol LDL Cholesterol Direct HDL Cholesterol Vitamin B12 Folate TSH 3rd Generation 04/06/18 04/06/18 04/06/18 18:02 19:06 19:35 WBC RBC Hgb Hct MCV MCH MCHC RDW Plt Count MPV Sodium Potassium Chloride Carbon Dioxide Anion Gap BUN Creatinine Est GFR ( Amer) Est GFR (Non-Af Amer) POC Glucose (mg/dL) 225 H 186 H Random Glucose Hemoglobin A1c Serum Osmolality 273 Calcium Phosphorus Magnesium Iron TIBC % Saturation Triglycerides Cholesterol LDL Cholesterol Direct HDL Cholesterol Vitamin B12 Folate TSH 3rd Generation 04/06/18 04/06/18 04/06/18 19:35 19:51 21:14 WBC RBC Hgb Hct MCV MCH MCHC RDW Plt Count MPV Sodium 129 L Potassium 2.9 L Chloride 95 L Carbon Dioxide 20 L Anion Gap 17 BUN 12 Creatinine 0.6 L Est GFR ( Amer) > 60 Est GFR (Non-Af Amer) > 60 POC Glucose (mg/dL) 184 H 223 H Random Glucose 156 H Hemoglobin A1c Serum Osmolality Calcium 8.0 L Phosphorus 0.7 L* Magnesium 2.0 Iron TIBC % Saturation Triglycerides Cholesterol LDL Cholesterol Direct HDL Cholesterol Vitamin B12 Folate TSH 3rd Generation 04/06/18 04/06/18 04/06/18 22:00 22:57 23:55 WBC RBC Hgb Hct MCV MCH MCHC RDW Plt Count MPV Sodium Potassium Chloride Carbon Dioxide Anion Gap BUN Creatinine Est GFR ( Amer) Est GFR (Non-Af Amer) POC Glucose (mg/dL) 240 H 242 H 315 H Random Glucose Hemoglobin A1c Serum Osmolality Calcium Phosphorus Magnesium Iron TIBC % Saturation Triglycerides Cholesterol LDL Cholesterol Direct HDL Cholesterol Vitamin B12 Folate TSH 3rd Generation 04/07/18 04/07/18 04/07/18 00:50 01:59 02:53 WBC RBC Hgb Hct MCV MCH MCHC RDW Plt Count MPV Sodium Potassium Chloride Carbon Dioxide Anion Gap BUN Creatinine Est GFR ( Amer) Est GFR (Non-Af Amer) POC Glucose (mg/dL) 210 H 217 H 243 H Random Glucose Hemoglobin A1c Serum Osmolality Calcium Phosphorus Magnesium Iron TIBC % Saturation Triglycerides Cholesterol LDL Cholesterol Direct HDL Cholesterol Vitamin B12 Folate TSH 3rd Generation 04/07/18 04/07/18 04/07/18 04:04 05:13 06:01 WBC RBC Hgb Hct MCV MCH MCHC RDW Plt Count MPV Sodium Potassium Chloride Carbon Dioxide Anion Gap BUN Creatinine Est GFR ( Amer) Est GFR (Non-Af Amer) POC Glucose (mg/dL) 222 H 197 H 208 H Random Glucose Hemoglobin A1c Serum Osmolality Calcium Phosphorus Magnesium Iron TIBC % Saturation Triglycerides Cholesterol LDL Cholesterol Direct HDL Cholesterol Vitamin B12 Folate TSH 3rd Generation 04/07/18 04/07/18 04/07/18 06:16 06:16 06:16 WBC RBC Hgb Hct MCV MCH MCHC RDW Plt Count MPV Sodium 130 L 131 L Potassium 3.0 L 3.0 L Chloride 95 L 96 L Carbon Dioxide 23 23 Anion Gap 15 16 BUN 6 L 6 L Creatinine 0.5 L 0.5 L Est GFR ( Amer) > 60 > 60 Est GFR (Non-Af Amer) > 60 > 60 POC Glucose (mg/dL) Random Glucose 182 H 182 H Hemoglobin A1c Serum Osmolality 272 Calcium 7.2 L 7.3 L Phosphorus 0.8 L* Magnesium 2.1 Iron TIBC % Saturation Triglycerides 142 D Cholesterol 159 LDL Cholesterol Direct 102 HDL Cholesterol 42 Vitamin B12 874 Folate 4.3 TSH 3rd Generation 0.10 L 04/07/18 04/07/18 04/07/18 06:16 06:16 06:22 WBC 6.4 RBC 3.51 L Hgb 10.9 L Hct 31.1 L MCV 88.4 D MCH 31.0 MCHC 35.0 RDW 13.8 Plt Count 177 MPV 8.2 Sodium Potassium Chloride Carbon Dioxide Anion Gap BUN Creatinine Est GFR ( Amer) Est GFR (Non-Af Amer) POC Glucose (mg/dL) Random Glucose Hemoglobin A1c Serum Osmolality Calcium Phosphorus Magnesium Iron 23 L 22 L TIBC 223 L % Saturation 10 L Triglycerides Cholesterol LDL Cholesterol Direct HDL Cholesterol Vitamin B12 Folate TSH 3rd Generation 04/07/18 04/07/18 04/07/18 06:22 07:00 08:01 WBC RBC Hgb Hct MCV MCH MCHC RDW Plt Count MPV Sodium Potassium Chloride Carbon Dioxide Anion Gap BUN Creatinine Est GFR ( Amer) Est GFR (Non-Af Amer) POC Glucose (mg/dL) 221 H 192 H Random Glucose Hemoglobin A1c 12.2 H Serum Osmolality Calcium Phosphorus Magnesium Iron TIBC % Saturation Triglycerides Cholesterol LDL Cholesterol Direct HDL Cholesterol Vitamin B12 Folate TSH 3rd Generation 04/07/18 04/07/18 04/07/18 08:54 10:15 11:03 WBC RBC Hgb Hct MCV MCH MCHC RDW Plt Count MPV Sodium Potassium Chloride Carbon Dioxide Anion Gap BUN Creatinine Est GFR ( Amer) Est GFR (Non-Af Amer) POC Glucose (mg/dL) 348 H 181 H 167 H Random Glucose Hemoglobin A1c Serum Osmolality Calcium Phosphorus Magnesium Iron TIBC % Saturation Triglycerides Cholesterol LDL Cholesterol Direct HDL Cholesterol Vitamin B12 Folate TSH 3rd Generation 04/07/18 04/07/18 04/07/18 12:09 13:10 13:12 WBC RBC Hgb Hct MCV MCH MCHC RDW Plt Count MPV Sodium Potassium Chloride Carbon Dioxide Anion Gap BUN Creatinine Est GFR ( Amer) Est GFR (Non-Af Amer) POC Glucose (mg/dL) 160 H > 500 H* 233 H Random Glucose Hemoglobin A1c Serum Osmolality Calcium Phosphorus Magnesium Iron TIBC % Saturation Triglycerides Cholesterol LDL Cholesterol Direct HDL Cholesterol Vitamin B12 Folate TSH 3rd Generation 04/07/18 04/07/18 04/07/18 14:38 14:53 15:31 WBC RBC Hgb Hct MCV MCH MCHC RDW Plt Count MPV Sodium 128 L Potassium 3.0 L Chloride 97 L Carbon Dioxide 25 Anion Gap 9 L BUN 3 L Creatinine 0.4 L Est GFR ( Amer) > 60 Est GFR (Non-Af Amer) > 60 POC Glucose (mg/dL) 185 H 152 H Random Glucose 137 H Hemoglobin A1c Serum Osmolality Calcium 7.0 L Phosphorus Magnesium Iron TIBC % Saturation Triglycerides Cholesterol LDL Cholesterol Direct HDL Cholesterol Vitamin B12 Folate TSH 3rd Generation 04/07/18 16:04 WBC RBC Hgb Hct MCV MCH MCHC RDW Plt Count MPV Sodium Potassium Chloride Carbon Dioxide Anion Gap BUN Creatinine Est GFR ( Amer) Est GFR (Non-Af Amer) POC Glucose (mg/dL) 127 H Random Glucose Hemoglobin A1c Serum Osmolality Calcium Phosphorus Magnesium Iron TIBC % Saturation Triglycerides Cholesterol LDL Cholesterol Direct HDL Cholesterol Vitamin B12 Folate TSH 3rd Generation Fingerstick Blood Sugar Results: 167 Review of Systems - Review of Systems Review of Systems: as per HPI Critical Care Progress Note - Nutrition Nutrition: Nutrition Category Date Time Status Diabetic [Consistent Carbohydrate] [DIET] Diets 04/07/18 Dinner Active Assessment/Plan - Assessment and Plan (Free Text) Assessment: 42yo M with PMH DM 2, Alcohol Abuse, Opiate Abuse, Gastritis, Anxiety presented to ED with chief complaint of vomiting blood. Patient was recently admitted to [facility] ICU for treatment of DKA but signed AMA (04/03/18 through 03/08 ). Pt admitted for treatment of DKA. Anion gap has closed and glucose controlled. Plan: Neuro - AAOx3 - no focal deficits Cardio - maintain normotension Pulm - CXR 04/07: minor left basilar atelectasis - zosyn 3.375mg IV q8h - maintain spO2>92% GI - zofran 4mg IV q6h PRN - reglan 10mg IV q6h PRN Renal - no active issues Endo - DKA, anion gap 6 today - glucose 127 - d/c insulin drip - d/c D5 1/2 NS - lantus 10u SC - low dose sliding scale - hypoglycemia protocol - accuchecks q6h - K+ 3.0 - Potassium Phosphate 30mmole @63ml/hr - B-hydroxybutarate 5.52 - HbA1c 12.2 ID - CXR 04/07: minor left basilar atelectasis - zosyn 3.375mg IV q8h Heme - no active issues Psych - h/o etoh use - multivitamin daily - folic acid daily - thiamine daily - ativan 1mg IV PRN - Psych consulted, Dr. Scott PPX: GI: protonix 40mg IV q12 DVT: lovenox 40 sc daily HHD Pt seen and case reviewed with Dr. Thurman
[2018-04-07] MEDS ORDERED: (Lantus) Insulin Glargine, Recombinant SC ONE (17:15)
[2018-04-07] MEDS: (Novolin R) Insulin Human Regular 100 units/ml vial SC SCH (22:57)
--- NOTE | 2018-04-08 01:51 | PN ---
DATE: 04/07/2018 ENDOCRINOLOGY FOLLOWUP NOTE LOCATION: ICU room 4. This is a 42-year-old male with recent uncontrolled type 2 insulin-requiring diabetes, presenting here with diabetic ketoacidosis and dehydration and has now improved clinically and metabolically with the initiation of vigorous IV hydration and intensive insulin therapy as given. He has now been taken off the insulin drip infusion as noted today. His glycemic values have remarkably improved and have ranged from 127 to 158 mg/dL. His latest chemistries showed a BUN of 3, sodium 128, potassium 3, chloride 97, CO2 of 25, glucose 137, and creatinine 0.4. His hemoglobin A1c is 12.2% which is extremely elevated and once again confirming his suboptimal metabolic control even prior to this admission. So at this time, we will continue the low-dose correction scale using regular insulin as given. However, we will start him on oral hypoglycemic therapy with Amaryl given as 4 mg b.i.d. before meals as ordered. We will hold off the metformin at this time considering the recent metabolic acidosis as noted. We will obtain serial chemistries and supplement accordingly as needed. We have recommended continuing the IV hydration to fully replenish the lost fluids and electrolytes especially with the persistent hyponatremia and hypokalemia as noted otherwise. We will obtain serial chemistries and supplement accordingly as needed. We will follow. Khushi Ulrich MD
[2018-04-08] MEDS: Piperacill/Tazo 3.375gm in Dex 3.375 GM/50 ML BAG IVPB SCH ×4 (05:25→22:30)
[2018-04-08 05:55] LABS: BASO % 0.3 % (0.0-2.0); EOS # 0.1 K/uL (0.0-0.7); EOS % 1.3 % (0.0-4.0); HEMOGLOBIN 11.3 g/dL (12.0-18.0); LYMPH % 19.4 % (20.0-40.0); MEAN CELL VOLUME 88.6 fL (80.0-94.0); MEAN CORPUSCULAR HEMOGLOBIN 31.4 pg (27.0-31.0); MEAN CORPUSCULAR HGB CONC 35.4 g/dL (33.0-37.0); MEAN PLATELET VOLUME 9.1 fL (7.2-11.7); MONO # 0.8 K/uL (0.0-0.8); MONO % 16.3 % (0.0-10.0); NEUT # 3.2 K/uL (1.8-7.0); NEUT % 62.7 % (50.0-75.0); NRBC % 0.1 % (0.0-2.0); RBC 3.59 Mil/uL (4.40-5.90); RED CELL DISTRIBUTION WIDTH 13.8 % (11.5-14.5); WHITE BLOOD COUNT 5.1 K/uL (4.8-10.8)
[2018-04-08 06:25] LABS: ALB/GLOB RATIO 1.1 (1.0-2.1); ALBUMIN 3.3 g/dL (3.5-5.0)
[2018-04-08 06:39] LABS: ALT/SGPT 37 U/L (21-72); AST/SGOT 46 U/L (17-59); BLOOD UREA NITROGEN 5 mg/dL (9-20); CALCIUM 7.8 mg/dl (8.6-10.4); GFR NON-AFRICAN AMERICAN > 60
[2018-04-08] MEDS: (Novolin R) Insulin Human Regular 100 units/ml vial SC SCH ×4 (08:26→22:00)
--- NOTE | 2018-04-08 08:27 | PN ---
DATE: 04/07/2018 SUBJECTIVE: The patient is a 42-year-old male. The patient was seen and examined on 04/07/2018, looking comfortable. Nausea is better. Having sore throat. No fever. No chills. No hematuria or hematochezia. No chest pain. No palpitation. PHYSICAL EXAMINATION: VITAL SIGNS: Temperature 98.6, pulse 112, respiratory rate 18, and blood pressure 120/80. HEENT: Head: Normocephalic and atraumatic. Eyes: PERRLA. Extraocular muscles are intact. Conjunctivae clear. Nose patent. Mucous membranes moist. NECK: Supple. No carotid bruit. No JVD or thyromegaly. CHEST: Bilaterally symmetrical. HEART: S1 and S2 positive. LUNGS: Clear to auscultation. ABDOMEN: Soft. Bowel sounds present. No organomegaly. EXTREMITIES: No edema. No cyanosis. NEUROLOGICAL: The patient is awake and alert. Moving all 4 extremities. No focal deficit. MEDICATIONS: Heparin, Ativan, folic acid, multivitamins, Lovenox, Reglan, Zofran, and Zosyn. LABORATORY DATA: White blood cells 6.4, hemoglobin 10.9, hematocrit 31.1, and platelets 177. Sodium 128, potassium 3, BUN 3, creatinine 0.4, glucose 113, and calcium 7. ASSESSMENT AND PLAN: Mr. Jared Reese is a 42-year-old male with leukocytosis, anemia, hyponatremia, hypokalemia, hypochloremia, hyperglycemia, hypocalcemia, proteinuria, ketonuria, hematuria, came with alcohol intoxication, beta-hydroxybutyrate with high levels are trending down. Influenza is negative. He is in the intensive care unit, seen by dip stand loader, Dr. Thurman and psychiatrist, Dr. Scott. History of ethanol abuse. Signed against medical advice last admission a couple of days ago. History of diabetes mellitus type 2, opiate abuse, gastritis, anxiety, having nausea, vomiting, and has diabetic ketoacidosis. Anion gap has been closed and glucose controlled. No focal deficit. Getting Zosyn , Zofran 4 mg for nauseousness, and Reglan every 6 hours. No active issue in the kidneys. Endocrinology is on the case. Getting Zosyn. We will fix the electrolytes. Repeat labs. We will follow up. Harmony Leyva MD [facility]
[2018-04-08] MEDS: Multiple Vitamins Tab PO SCH (10:44)
[2018-04-08] MEDS: Enoxaparin 40 mg Syringe SC SCH (10:44)
[2018-04-08 14:51] VITALS: RESP 20
[2018-04-08] MEDS: Potassium & Sodium Phosphate PO SCH (17:47)
[2018-04-08] MEDS ORDERED: Magnesium Oxide 400 mg Tab UD PO ONE (18:00)
[2018-04-08] MEDS ORDERED: Potassium Chloride 20 mEq ER Tab PO ONE (18:00)
[2018-04-08] MEDS: Benzocaine/Menthol (Cepacol) Lozenge MT PRN (21:37)
--- NOTE | 2018-04-08 23:16 | PN ---
DATE: 04/08/2018 LOCATION: In ICU, room 4. SUBJECTIVE: This is a 42-year-old male with recent uncontrolled type 2 insulin-requiring diabetes, presenting here with diabetic ketoacidosis and dehydration and has since then improved clinically and metabolically as noted thereof. He received vigorous IV hydration and intensive insulin therapy on admission here to the ICU with remarkable improvement thereof. His glucose values overnight have ranged from 187 to 265 mg/dL. His bedtime glucose was elevated at 313 mg/dL. LABORATORY DATA: His A1c is extremely elevated at 12.3% indicative of suboptimal metabolic control of his diabetic condition even prior to this admission. His chemistries showed BUN of 5, sodium 128, potassium 3.2, chloride 89, CO2 of 27, glucose 157 and creatinine 0.5. PLAN OF MANAGEMENT: So at this time, we will modify his current oral regimen and add metformin given as 1 g b.i.d. to start today as ordered. We will continue the Amaryl given as 4 mg b.i.d. before meals as ordered. We will hold off the resumption of insulin therapy for now as the patient has a remarkable biochemical response to intensive insulin therapy as given in the ICU as ordered. This wound enhance his outpatient adherence to his oral therapy for now as indicated. We will obtain serial chemistries and supplement accordingly as needed. We will follow. Khushi Ulrich MD
[2018-04-08] MEDS: Sodium Chloride 0.9% 1,000 ML IV SCH (23:23)
--- NOTE | 2018-04-09 04:32 | PN ---
DATE: 04/08/2018 SUBJECTIVE: The patient is a 42-year-old male. The patient was seen and examined on 04/08/2018, looking comfortable. No fever. No chills. No nausea, vomiting, or diarrhea. No hematuria or hematochezia. No swelling of the legs. No chest pain. No palpitation. No headache or dizziness. PHYSICAL EXAMINATION: VITAL SIGNS: Temperature 98, blood pressure 100/64, respiratory rate 20, pulse 101. HEENT: Head: Normocephalic and atraumatic. Eyes: PERRLA. Extraocular movements intact. Conjunctivae clear. Nose patent. Mucous membranes moist. NECK: Supple. No carotid bruits, JVD or thyromegaly. CHEST: Bilaterally symmetrical. HEART: S1 and S2 positive. LUNGS: Clear to auscultation. ABDOMEN: Soft. Bowel sounds present. No organomegaly. EXTREMITIES: No edema. No cyanosis. NEUROLOGIC: The patient is awake and alert. Moving all four extremities. No focal deficits. MEDICATIONS: Heparin, Ativan, folic acid, Glucophage, multivitamin, Lovenox, potassium, Novolin, Reglan, vitamin B1, Zofran, and Zosyn. LABORATORY DATA: White blood cells 5.1, hemoglobin 11.3, hematocrit 31.8, platelets 264. Sodium 128, potassium 3.2, BUN 5, creatinine 0.5, glucose 265. ASSESSMENT AND PLAN: Mr. Jared Rodríguez is a 42-year-old male with neutropenia, hypokalemia, hypochloremia insulin-dependent diabetes mellitus, hypocalcemia, hypophosphatemia, hypoalbuminemia. Leukocytosis, improved. Anemia, proteinuria, ketonuria, hematuria, history of ethanol abuse, beta-hydroxybutyrate abuse. Seen by Appreciated no more insulin, therefore continue hydration. The patient came with diabetic ketoacidosis, improving. Electrolytic imbalance, getting adjusted. Repeat labs. History of opiate abuse, gastritis and anxiety. Nausea and vomiting is better. On 04/04/2018, the patient left against medical advice and came back. Re-admitted under my service. Has anion gap and glucose controlled. Neurologically, the patient is oriented x3. Continue Zosyn, Zofran, Reglan p.r.n. Discontinue D5 half normal saline. Discontinue insulin drip. He will be getting insulin on low dose sliding scale. Repeat labs. We will follow up. Harmony Leyva MD [facility]
[2018-04-09] MEDS: Piperacill/Tazo 3.375gm in Dex 3.375 GM/50 ML BAG IVPB SCH ×4 (04:57→22:06)
[2018-04-09] MEDS: (Novolin R) Insulin Human Regular 100 units/ml vial SC SCH ×4 (07:41→21:46)
[2018-04-09 07:51] LABS: BLOOD UREA NITROGEN 6 mg/dL (9-20); GFR NON-AFRICAN AMERICAN > 60
[2018-04-09] MEDS: Sodium Chloride 0.9% 1,000 ML IV SCH ×3 (08:01→21:48)
[2018-04-09 08:17] LABS: HEMOGLOBIN 10.4 g/dL (12.0-18.0); MEAN CELL VOLUME 89.2 fL (80.0-94.0); MEAN CORPUSCULAR HEMOGLOBIN 31.7 pg (27.0-31.0); MEAN CORPUSCULAR HGB CONC 35.6 g/dL (33.0-37.0); MEAN PLATELET VOLUME 7.4 fL (7.2-11.7); RBC 3.29 Mil/uL (4.40-5.90); RED CELL DISTRIBUTION WIDTH 13.6 % (11.5-14.5)
[2018-04-09 08:18] LABS: WHITE BLOOD COUNT 7.9 K/uL (4.8-10.8)
[2018-04-09] MEDS: Potassium & Sodium Phosphate PO SCH ×3 (09:09→17:36)
[2018-04-09] MEDS: Enoxaparin 40 mg Syringe SC SCH (09:09)
[2018-04-09] MEDS: Multiple Vitamins Tab PO SCH (09:09)
[2018-04-09] MEDS: Benzocaine/Menthol (Cepacol) Lozenge MT PRN (15:56)
--- NOTE | 2018-04-09 19:48 | PN ---
DATE: 04/09/2018 ENDOCRINOLOGY FOLLOWUP NOTE LOCATION: Room 351. SUBJECTIVE: This is a 42-year-old male with recent uncontrolled type 2 insulin-requiring diabetes, now being followed closely for metabolic management. His glycemic levels overnight started to fluctuate as noted with glucose values ranging from 187 to 265 mg/dL. LABORATORY DATA: His chemistry shows a BUN of 6, sodium 129, potassium 3.4, chloride 86, CO2 of 33, glucose 263 and creatinine 0.6. His A1c is extremely elevated at 12.3%, indicative of suboptimal metabolic control of his diabetic condition even prior to this admission. ASSESSMENT AND PLAN: So, at this time, we will modify once again his current regimen and actually add basal insulin with Lantus to be given as 12 units subcutaneous at bedtime daily to start tonight. We will continue the dual oral hypoglycemic drug therapy with metformin at 1 g b.i.d. and Amaryl at 4 mg b.i.d. as ordered. We will obtain serial chemistries and supplement accordingly as needed. We will also continue the low dose correction scale using Novolog insulin as given. We will follow. Khushi Ulrich MD
[2018-04-09] MEDS ORDERED: (Lantus) Insulin Glargine, Recombinant SC SCH (22:00)
[2018-04-10] MEDS ORDERED: DiphenhydrAMINE 50 mg/ml Inj IVP STA (01:49)
[2018-04-10] MEDS: Sodium Chloride 0.9% 1,000 ML IV SCH ×2 (02:52→14:52)
[2018-04-10] MEDS: Piperacill/Tazo 3.375gm in Dex 3.375 GM/50 ML BAG IVPB SCH ×4 (05:14→22:27)
--- NOTE | 2018-04-10 06:57 | PN ---
DATE: 04/09/2018 SUBJECTIVE: The patient is a 42-year-old male. The patient was seen and examined at the bedside on 04/09/2018. Looking comfortable. No fever. No chills. No hematuria or hematochezia. No swelling of the legs. No chest pain or palpitations. Tolerating food very well. Seen by the industrial psychology teacher. PHYSICAL EXAMINATION: VITAL SIGNS: Temperature 98.3, pulse 94, blood pressure 131/84, respiratory rate 20. HEENT: Head is normocephalic and atraumatic. Eyes PERRLA. Extraocular movements are intact. Conjunctivae clear. Nose patent. Mucous membranes are moist. NECK: Supple. No carotid bruits. No JVD or thyromegaly. CHEST: Bilaterally symmetrical. HEART: S1 and S2 positive. LUNGS: Clear to auscultation. ABDOMEN: Soft. Bowel sounds present. No organomegaly. EXTREMITIES: No edema. No cyanosis. NEUROLOGIC: The patient is awake and alert. Moving all four extremities. No focal deficits. MEDICATIONS: Amaryl, Ativan, folic acid, Glucophage, multivitamin, Lantus, Lovenox, Novolin, Reglan, NS, B1, Zofran, Zosyn. LABORATORY DATA: White blood cells 7.9, hemoglobin 10.7, hematocrit 29.4, and platelets 357. Sodium 129, potassium 3.4, BUN 6, creatinine 0.6, glucose 116, calcium 8. ASSESSMENT AND PLAN: The patient is a 42-year-old male with anemia, hyponatremia, hypokalemia, hypochloremia, hyperglycemia, insulin-dependent diabetes mellitus, hypocalcemia, proteinuria, ketonuria, hematuria, history of ethanol abuse. Seen by Dr. Khushi Ulrich, industrial psychology teacher. The patient has uncontrolled diabetes mellitus, insulin requiring. We will continue dual oral hypoglycemic therapy with metformin and Amaryl. Gastrointestinal and deep venous thrombosis prophylaxis. We will replete electrolytes. We will follow up. Harmony Leyva MD
[2018-04-10] MEDS: (Novolin R) Insulin Human Regular 100 units/ml vial SC SCH ×4 (07:36→21:15)
[2018-04-10 08:37] LABS: ALBUMIN 2.9 g/dL (3.5-5.0); ALT/SGPT 35 U/L (21-72); AST/SGOT 23 U/L (17-59); BLOOD UREA NITROGEN 4 mg/dL (9-20); GFR NON-AFRICAN AMERICAN > 60
--- NOTE | 2018-04-10 09:01 | CP.PCM.PCO ---
Physician Communication Note - Physician Communication Note Physician Communication Note: RN called to inform about k- 2.5 ,
[2018-04-10] MEDS: Potassium Chloride 20 mEq ER Tab PO SCH (09:04)
[2018-04-10] MEDS ORDERED: Potassium Chloride 20 mEq/15 ml LIQ UD PO ONE (09:30)
[2018-04-10] MEDS: Potassium & Sodium Phosphate PO SCH ×3 (09:31→17:31)
[2018-04-10] MEDS: Multiple Vitamins Tab PO SCH (09:32)
[2018-04-10] MEDS ORDERED: Potassium Phosphate 15 MMOLE in Dextrose 5% In Water 250 ML IVPB ONE (14:00)
[2018-04-10 14:41] LABS: BLOOD UREA NITROGEN 5 mg/dL (9-20); CALCIUM 8.2 mg/dl (8.6-10.4); GFR NON-AFRICAN AMERICAN > 60
[2018-04-10] MEDS ORDERED: Albuterol-Ipratrop 3 mg / 0.5 (3 ml) UD INH PRN (14:48)
[2018-04-10] MEDS: Magnesium Sulfate 1 gm in D5W 1 GM/100 ML BAG IVPB SCH ×3 (16:05→22:23)
[2018-04-10] MEDS ORDERED: (Lantus) Insulin Glargine, Recombinant SC SCH (22:00)
[2018-04-11] MEDS: Magnesium Sulfate 1 gm in D5W 1 GM/100 ML BAG IVPB SCH (04:49)
[2018-04-11] MEDS: Sodium Chloride 0.9% 1,000 ML IV SCH (05:00)
[2018-04-11] MEDS: Piperacill/Tazo 3.375gm in Dex 3.375 GM/50 ML BAG IVPB SCH ×4 (05:22→22:22)
--- NOTE | 2018-04-11 07:24 | PN ---
DATE: 04/10/2018 SUBJECTIVE: The patient is a 42-year-old male. The patient was seen and examined at the bedside on 04/10/2018. Looking comfortable. sleep problem. No fever. No chills. No hematuria or hematochezia. No swelling of the legs. No chest pain or palpitation. No headache or dizziness. The patient's left leg was normal. Nurse practitionerGemma transferred the patient to the telemetry and fixed the electrolytes. We will repeat the electrolytes. No fever. No chills. No hematuria or hematochezia. No swelling of the legs. PHYSICAL EXAMINATION: VITAL SIGNS: Temperature 98.4, pulse 102, blood pressure 135/90, and respiratory rate 20. HEENT: Head, normocephalic and atraumatic. Eyes, PERRLA. Extraocular muscles are intact. Conjunctivae clear. Nose patent. Mucous membranes moist. NECK: Supple. No carotid bruits or thyromegaly. CHEST: Bilaterally symmetrical. HEART: S1, S2 positive. LUNGS: Clear to auscultation. ABDOMEN: Soft. Bowel sounds present. No organomegaly. EXTREMITIES: No edema. No cyanosis. NEUROLOGICAL: The patient is awake, alert, moving all four extremities. No focal deficits. MEDICATIONS: Amaryl, Benadryl, benzocaine, DuoNeb, folic acid, metformin, multivitamins, potassium, Lantus, magnesium, Neutra-Phos, Novolin, Pepcid, Reglan, vitamin B1, and Zosyn. LABORATORY DATA: White blood cells 7.9, hemoglobin 10.4, hematocrit 29.4, platelets 354. Sodium 129, potassium 3.3, BUN 5, creatinine 0.6, glucose 244, calcium . ASSESSMENT AND PLAN: The patient is a 42-year-old male with history of leukocytosis, improved; anemia; hyponatremia; hypochloremia; hyperglycemia; hypocalcemia; hypophosphatemia, hematuria; drug screen is positive for beta hydroxybutyrate; alcohol positive; electrolyte imbalance. , nurse practitioner, replaced that, and discussion done with nurse practitioner. Has insomnia as the patient is sleep, and if the patient's electrolytes are good tomorrow, we will discharge the patient. Today, I had discussion done with the nurse that we have to teach him how to use insulin and how to keep record of his blood sugar. Diabetic education consult called. We will follow up. Harmony Leyva MD
--- NOTE | 2018-04-11 07:27 | PN ---
DATE: 04/10/2018 ENDOCRINOLOGY FOLLOWUP NOTE LOCATION: Room 566. This is a 42-year-old male with recent uncontrolled type 2 insulin-requiring diabetes, now being followed closely for metabolic management. His glycemic levels are fluctuating, and the glucose values overnight have ranged from 220 to 276 mg/dL. His chemistries showed a BUN of 5, sodium 129, potassium 3.3, chloride 91, CO2 of 29, glucose 276, and creatinine 0.6. So at this time, we will modify once again his basal insulin and increase the Lantus to units subcu at bedtime daily to start tonight. We will continue the dual oral hypoglycemic therapy given as Amaryl at 4 mg b.i.d. before meals as ordered with metformin given as 1 g b.i.d. after meals of given as ordered. We will obtain serial chemistries and supplement accordingly as needed. We will also continue the low-dose corrections using NovoLog insulin as ordered. We will continue the IV hydration and serial chemistries accordingly. We will follow. Khushi Ulrich MD
[2018-04-11] MEDS: (Novolin R) Insulin Human Regular 100 units/ml vial SC SCH ×4 (08:19→21:13)
[2018-04-11 08:24] LABS: HEMOGLOBIN 9.8 g/dL (12.0-18.0); MEAN CELL VOLUME 90.6 fL (80.0-94.0); MEAN CORPUSCULAR HEMOGLOBIN 31.4 pg (27.0-31.0); MEAN CORPUSCULAR HGB CONC 34.7 g/dL (33.0-37.0); RBC 3.12 Mil/uL (4.40-5.90); WHITE BLOOD COUNT 6.9 K/uL (4.8-10.8)
[2018-04-11 08:37] LABS: ALB/GLOB RATIO 1.1 (1.0-2.1); ALT/SGPT 41 U/L (21-72); AST/SGOT 26 U/L (17-59); BLOOD UREA NITROGEN 4 mg/dL (9-20); CALCIUM 7.8 mg/dl (8.6-10.4); GFR NON-AFRICAN AMERICAN > 60
[2018-04-11] MEDS: Potassium Chloride 20 mEq ER Tab PO SCH ×2 (10:23→10:24)
[2018-04-11] MEDS: Potassium & Sodium Phosphate PO SCH ×3 (10:24→18:06)
[2018-04-11] MEDS: Multiple Vitamins Tab PO SCH (10:24)
--- NOTE | 2018-04-11 23:02 | PN ---
DATE: 04/11/2018 ENDOCRINOLOGY FOLLOWUP NOTE LOCATION: Room 566. SUBJECTIVE: This is a 42-year-old male with recent uncontrolled type 2 insulin-requiring diabetes, now being followed closely for metabolic management because of recent hyperglycemic accelerations as noted thereof. His glucose values have improved overnight and have ranged from 172 to 197 mg/dL plus 153 before breakfast this morning as noted. LABORATORY DATA: His chemistry showed a BUN of 4, sodium 132, potassium 3.2, chloride 95, CO2 of 30, glucose 154, and creatinine 0.5. ASSESSMENT AND PLAN: So at this time, we will continue the same combination of both oral hypoglycemic therapy given in combination with basal insulin as ordered. We will continue the Lantus given as 16 units subcutaneously at bedtime daily as given. We will continue the metformin at 1000 mg b.i.d. with meals and Amaryl at 4 mg b.i.d. before meals as ordered. We will continue the low-dose correction scale using regular insulin as ordered. We will follow and advise accordingly. Khushi Ulrich MD
--- NOTE | 2018-04-12 05:10 | PN ---
DATE: 04/11/2018 SUBJECTIVE: The patient is a 42-year-old male. The patient was seen and examined at bedside on 04/11/2018. Looking comfortable. No fever. No chills. No nausea, vomiting, or diarrhea. No hematuria or hematochezia. No swelling of the legs. No chest pain or palpitation. No headache or dizziness. Just complaining that he cannot sleep at night. PHYSICAL EXAMINATION: VITAL SIGNS: Temperature 98.2, pulse 106, blood pressure 118/79, and respiratory rate 20. HEENT: Head, normocephalic and atraumatic. Eyes, PERRLA. Extraocular muscles intact. Conjunctivae clear. Nose patent. NECK: Supple. No carotid bruit, JVD, or thyromegaly. CHEST: Bilaterally symmetrical. HEART: S1 and S2 positive. LUNGS: Clear to auscultation. ABDOMEN: Soft. Bowel sounds present. No organomegaly. EXTREMITIES: No edema. No cyanosis. NEUROLOGICAL: The patient is awake, alert, and moving all four extremities. No focal deficits. MEDICATIONS: Amaryl, Benadryl, DuoNeb, folic acid, metformin, potassium, Lantus, Neutra-Phos, Novolin, Pepcid, Reglan, Seroquel, ____, and Zosyn. LABORATORY DATA: White blood cells 6.9, hemoglobin 9.8, hematocrit 28.2, and platelets 630. Sodium 132, potassium 3.2, BUN 4, creatinine 0.5, glucose 206, calcium 7.8, and magnesium 2.4. ASSESSMENT AND PLAN: Mr. Jared Rodríguez is a 42-year-old male with hypokalemia, hypochloremia, hypocalcemia, hypermagnesemia, anemia, thrombocytosis, proteinuria, ketonuria, urinary tract infection, drug screening positive, seen by Dr. Khushi Ulrich, medical sales. The patient has diabetes type 2 uncontrolled, insulin requiring, currently receiving combination of both oral hypoglycemic therapy and combination with basal insulin as ordered. Continue Lantus. We will replete the electrolytes. Gastrointestinal and deep venous thrombosis prophylaxis. We will follow up. Harmony Leyva MD
[2018-04-12] MEDS: Piperacill/Tazo 3.375gm in Dex 3.375 GM/50 ML BAG IVPB SCH ×2 (06:05→11:21)
[2018-04-12] MEDS: (Novolin R) Insulin Human Regular 100 units/ml vial SC SCH ×4 (08:43→21:08)
[2018-04-12] MEDS: Potassium Chloride 20 mEq ER Tab PO SCH ×2 (09:19→11:40)
[2018-04-12] MEDS: Multiple Vitamins Tab PO SCH (09:19)
[2018-04-12] MEDS: Potassium & Sodium Phosphate PO SCH ×3 (09:20→18:07)
[2018-04-12] MEDS: Lidocaine 5% Patch TD SCH (11:21)
[2018-04-12 11:58] LABS: BLOOD UREA NITROGEN 8 mg/dL (9-20); GFR NON-AFRICAN AMERICAN > 60
[2018-04-12] MEDS ORDERED: Potassium Chloride 20 mEq ER Tab PO ONE (12:00)
[2018-04-12] MEDS ORDERED: (Lantus) Insulin Glargine, Recombinant SC SCH (22:00)
--- NOTE | 2018-04-12 22:33 | PN ---
DATE: 04/12/2018 ENDOCRINOLOGY FOLLOWUP NOTE LOCATION: In room 566. SUBJECTIVE: This is a 42-year-old male with recent uncontrolled type 2 insulin-requiring diabetes with persistent hyperglycemic accelerations and variable oral intake, and is now being followed closely for metabolic management. His glucose levels overnight have ranged from 162 to 200 and 306 mg/dL. LABORATORY DATA: His latest chemistries show a BUN of 8, sodium 131, potassium 4.4, chloride 92, CO2 29, glucose 279, and creatinine 0.6. ASSESSMENT AND PLAN: So at this time, we will modify once again his basal insulin and increase the Lantus to 20 units subcutaneously at bedtime daily, to start tonight. We will continue the dual oral hypoglycemic therapy with Amaryl at 4 mg b.i.d. and metformin at 1000 mg b.i.d. with meals as ordered. We will add also Januvia given as 100 mg once daily to augment insulin sensitivity thereof. We are trying to hold off the addition of prandial insulin three times a day because of the patient's very strong history of poor medical followup or nonadherence to his insulin regimen. We will obtain serial chemistries and supplement accordingly as needed. We will follow. Khushi Ulrich MD
[2018-04-13 08:12] VITALS: BP 116/75; PULSE 111; TEMP 98.3; O2SAT 95
[2018-04-13] MEDS: Lidocaine 5% Patch TD SCH (08:40)
[2018-04-13] MEDS: (Novolin R) Insulin Human Regular 100 units/ml vial SC SCH (08:40)
[2018-04-13] MEDS: Multiple Vitamins Tab PO SCH (09:12)
[2018-04-13] MEDS: Potassium Chloride 20 mEq ER Tab PO SCH ×2 (09:12)
[2018-04-13] MEDS: Potassium & Sodium Phosphate PO SCH (09:12)
--- NOTE | 2018-04-13 09:40 | PN ---
DATE: 04/12/2018 SUBJECTIVE: The patient was seen and examined at the bedside on 04/12/2018. Looking comfortable. No fever. No chills. No nausea or vomiting. No hematuria or hematochezia. No headache or dizziness. No palpitations. PHYSICAL EXAMINATION: VITAL SIGNS: Temperature 98.1, pulse 97, blood pressure 105/73, respiratory rate 20. HEENT: Head: Normocephalic, atraumatic. Eyes: PERRLA. Extraocular muscles intact. Conjunctivae clear. Nose patent. Mucous membranes moist. NECK: Supple. No carotid bruits, JVD, or thyromegaly. CHEST: Bilaterally symmetric. HEART: S1 and S2 positive. LUNGS: Clear to auscultation. ABDOMEN: Soft. Bowel sounds present. No organomegaly. EXTREMITIES: No edema. No cyanosis. NEUROLOGIC: The patient is awake and alert. Moving all four extremities. No focal deficits. MEDICATIONS: Amaryl, Benadryl, Cepacol Lozenges, DuoNeb, folic acid, metformin, Januvia, K-Dur, Lantus, Lidoderm, Neutra-Phos, Novolin, Pepcid, Reglan, Seroquel, vitamin B1. LABORATORY DATA: We do not have the cardiovascular reviewed or labs. ASSESSMENT AND PLAN: Mr. Jared Rodríguez is a 42-year-old male with anemia, thrombocytosis, hyponatremia, hypoglycemia, Gastrointestinal and deep venous thrombosis prophylaxis. The patient has history of uncontrolled diabetes mellitus type 2, ____ possibility of diabetic ketoacidosis, history of electrolyte imbalance, replaced, acute urinary tract infection, blood sugar, possibility of dying, drug screening by Dr. Khushi Ulrich. Endocrinology ____. The patient had ____. The patient is ____, history of drug abuse, history of ethanol abuse. ____ understands. Psych is on the case. We will follow. Harmony Leyva MD
--- NOTE | 2018-04-13 14:07 | PN ---
DATE: 04/13/2018 ENDOCRINOLOGY FOLLOWUP NOTE LOCATION: Room #566. SUBJECTIVE: This is a 42-year-old male with recent uncontrolled type 2 insulin requiring diabetes, presenting here with diabetic ketoacidosis and dehydration and has since then improved clinically and metabolically as note thereof. There is also significant history of chronic alcoholism with recent intoxication as noted. His chemistry showed the BUN of 8, sodium 131, potassium 4.4, chloride 92, CO2 29, glucose 279, and creatinine 0.6. His glucose levels overnight have ranged from 200 to 219 mg/dL. So at this time, we will modify once again his basal insulin and increase the Lantus to 24 units subcutaneously at bedtime daily to start tonight. We will continue the oral hypoglycemic therapy to really just enhance adherence and compliance with the patient and continue the metformin at 1000 mg b.i.d. with meals with Advil given as 4 mg b.i.d. before meals as ordered. We also added Januvia of 100 mg once daily in the morning, which just started today as ordered. He can be sent home on a combination of the so called Janumet b.i.d. with Amaryl at 4 mg b.i.d. upon discharge. We will obtain serial chemistry and supplement accordingly as needed. We will follow with you. Khushi Ulrich MD
[2018-04-13] MEDS ORDERED: (Lantus) Insulin Glargine, Recombinant SC SCH (22:00)
== END 2018-04-13 11:30 | disposition home or self-care (01) | DRG 294 ==
LOC: C.ER 05:06 → C.9I 07:04 → C.3T 04-08 19:34 → C.5S 04-10 11:40
PROVIDERS: ADMIT Internal Medicine; ATTEND Internal Medicine
DX: E11.10 Type 2 diabetes mellitus with ketoacidosis without coma (principal); E87.6 Hypokalemia; E87.1 Hypo-osmolality and hyponatremia; E86.0 Dehydration; F14.10 Cocaine abuse, uncomplicated; F11.10 Opioid abuse, uncomplicated; Z79.4 Long term (current) use of insulin; D70.9 Neutropenia, unspecified; E83.51 Hypocalcemia; F10.220 Alcohol dependence with intoxication, uncomplicated; Y90.4 Blood alcohol level of 80-99 mg/100 ml; F17.210 Nicotine dependence, cigarettes, uncomplicated; F41.9 Anxiety disorder, unspecified; G47.00 Insomnia, unspecified; I10 Essential (primary) hypertension

== ENCOUNTER 2018-04-24 11:03 | Inpatient (IN) | payer OTHER ==
[2018-04-24 11:04] VITALS: BMI 22.1
[2018-04-24] MEDS ORDERED: Thiamine 100 mg/ml Inj IV ONE (11:25)
[2018-04-24] MEDS ORDERED: Sodium Chloride 0.9% 1,000 ML IV ONE ×2 (11:26→12:29)
[2018-04-24] MEDS ORDERED: Sodium Chloride 0.9% 1,000 ML ONE ×2 (11:44→12:52)
[2018-04-24 11:48] LABS: BASO # 0.1 K/uL (0.0-0.2); BASO % 0.5 % (0.0-2.0); HEMOGLOBIN 12.1 g/dL (12.0-18.0); LYMPH # 1.5 K/uL (1.0-4.3); LYMPH % 11.8 % (20.0-40.0); MEAN CELL VOLUME 89.3 fL (80.0-94.0); MEAN CORPUSCULAR HEMOGLOBIN 30.8 pg (27.0-31.0); MEAN CORPUSCULAR HGB CONC 34.5 g/dL (33.0-37.0); MEAN PLATELET VOLUME 6.8 fL (7.2-11.7); MONO # 0.5 K/uL (0.0-0.8); MONO % 3.6 % (0.0-10.0); NEUT # 10.8 K/uL (1.8-7.0); NEUT % 84.1 % (50.0-75.0); RBC 3.92 Mil/uL (4.40-5.90); RED CELL DISTRIBUTION WIDTH 14.7 % (11.5-14.5)
[2018-04-24 11:53] LABS: WHITE BLOOD COUNT 12.8 K/uL (4.8-10.8)
[2018-04-24 11:57] LABS: PROTHROMBIN TIME 11.3 SECONDS (9.7-12.2)
[2018-04-24 12:06] LABS: ALB/GLOB RATIO 1.2 (1.0-2.1); ALBUMIN 3.9 g/dL (3.5-5.0); ALT/SGPT 14 U/L (21-72); AST/SGOT 26 U/L (17-59); BLOOD UREA NITROGEN 7 mg/dL (9-20); CALCIUM 8.1 mg/dl (8.6-10.4); GFR NON-AFRICAN AMERICAN > 60
[2018-04-24] MEDS ORDERED: Magnesium Sulfate 1 gm in D5W 1 GM/100 ML BAG IVPB ONE ×2 (12:09→12:52)
[2018-04-24 12:14] LABS: B-TYPE NATRIURETIC PEPTIDE 44.7 pg/mL (0-450)
[2018-04-24 12:16] LABS: LIPASE 18 U/L (23-300)
--- NOTE | 2018-04-24 12:22 | C.PDOC ---
History Of Present Illness 42 y/o male presents to the ER for evaluation of ETOH abuse. Patient states that he has been binge drinking for the past 6 days. Patient reports that he was not able to drink today secondary to nausea and abdominal pain. He is complaining of feeling weak,nauseous, and having abdominal pain. Denies fever, chills, vomiting, dysuria, and hematuria. Time Seen by Provider: 04/24/18 11:23 Chief Complaint (Nursing): Substance Abuse History Per: Patient History/Exam Limitations: no limitations Onset/Duration Of Symptoms: Days Current Symptoms Are (Timing): Still Present Severity: Moderate Past Medical History Reviewed: Historical Data, Nursing Documentation, Vital Signs Vital Signs: Last Vital Signs Temp 98.3 F 04/24/18 11:07 Pulse 129 H 04/24/18 11:07 Resp 20 04/24/18 11:07 BP 135/86 04/24/18 11:07 Pulse Ox 100 04/24/18 11:07 - Medical History PMH: Anxiety, Diabetes (metformin), Gastritis Denies: Depression, Hepatitis, HIV, HTN, Chronic Kidney Disease, Seizures, Sexually Transmitted Disease - [facility] Procedures CLOSURE SKIN & SUBCUTANEOUS NEC (06/04/03) DETOXIFICATION SERVICES FOR SUBSTANCE ABUSE TREATMENT (06/20/17) ESOPHAGOGASTRODUODENOSCOPY [EGD] W/CLOSED BIOPSY (11/12/14) INDIV PSYCHOTHERAPY FOR SUBSTANCE ABUSE TREATMENT, SUPPORT (06/20/17) INFLUENZA VACCINATION (02/05/13) LARYGNOSCOPY AND OTH TRACHEOSCOPY (05/02/14) PHARMACOTHERAPY FOR SUBSTANCE ABUSE, NICOTINE REPLACE (06/20/17) Family History: States: Unknown Family Hx - Social History Hx Tobacco Use: Yes Hx Alcohol Use: Yes Hx Substance Use: No - Immunization History Hx Tetanus Toxoid Vaccination: Yes Hx Influenza Vaccination: Yes Hx Pneumococcal Vaccination: No Review Of Systems Except As Marked, All Systems Reviewed And Found Negative. Constitutional: Positive for: Weakness. Negative for: Fever, Chills Gastrointestinal: Positive for: Nausea, Abdominal Pain. Negative for: Vomiting Genitourinary: Negative for: Dysuria, Hematuria Physical Exam - Physical Exam Appears: Non-toxic, No Acute Distress Skin: Normal Color, Warm, Dry Head: Atraumatic, Normacephalic Eye(s): bilateral: Normal Inspection Nose: Normal Oral Mucosa: Moist Neck: Supple Chest: Symmetrical Cardiovascular: Rhythm Regular Respiratory: Normal Breath Sounds, No Rales, No Rhonchi, No Wheezing Gastrointestinal/Abdominal: Soft, Tenderness (diffuse tenderness), No Guarding, No Rebound Extremity: Normal ROM Neurological/Psych: Oriented x3, Normal Speech ED Course And Treatment - Laboratory Results Result Diagrams: 04/24/18 11:43 04/24/18 11:43 ECG: Interpreted By Me, Viewed By Me ECG Rhythm: Sinus Tachycardia Interpretation Of ECG: Sinus Tachycardia with normal intervals, normal axises, and no ST/ T wave abnormalities Rate From EC O2 Sat by Pulse Oximetry: 100 (RA) Pulse Ox Interpretation: Normal - Radiology CXR: Interpreted by Me, Viewed By Me CXR Interpretation: Yes: No Acute Disease Medical Decision Making Medical Decision Making: Assessment: ETOH intoxication, Abdominal Pain Plan: --Labs --ECG --UA --IV Fluids --Zofran IV --Thiamine IV --Magnesium Sulfate IV patient feels better but still anxious. cleared medically and accepted by Dr. Harper to detox. Disposition Discussed With : Gasper Harper Doctor Will See Patient In The: Hospital Counseled Patient/Family Regarding: Studies Performed, Diagnosis - Disposition Disposition: HOSPITALIZED Disposition Time: 13:44 Condition: FAIR - Clinical Impression Clinical Impression: Alcohol use disorder, severe, dependence - Scribe Statement The provider has reviewed the documentation as recorded by the Michelle Ruelas Provider Attestation: All medical record entries made by the Scribe were at my direction and personally dictated by me. I have reviewed the chart and agree that the record accurately reflects my personal performance of the history, physical exam, medical decision making, and the department course for this patient. I have also personally directed, reviewed, and agree with the discharge instructions and disposition.
[2018-04-24 13:15] LABS: URINE BILIRUBIN NEGATIVE (NEGATIVE); URINE BLOOD NEGATIVE (NEGATIVE); URINE CLARITY Clear (Clear); URINE COLOR Yellow (YELLOW); URINE GLUCOSE (UA) 3+ mg/dL (Normal); URINE LEUKOCYTE ESTERASE NEG Leu/uL (Negative); URINE PROTEIN 1+ mg/dL (NEGATIVE)
[2018-04-24 13:31] LABS: BARBITURATES, UR NEGATIVE (NEGATIVE); BENZODIAZEPINES, UR NEGATIVE (NEGATIVE); OPIATES, UR NEGATIVE (NEGATIVE); PHENCYCLIDINE, UR NEGATIVE (NEGATIVE)
--- NOTE | 2018-04-24 13:53 | RAD ---
HISTORY: SOB COMPARISON: Chest x-ray performed 04/07/18 TECHNIQUE: Chest, one view. FINDINGS: LUNGS: No focal consolidation. Please note that chest x-ray has limited sensitivity for the detection of pulmonary masses. PLEURA: No significant pleural effusion identified. No definite pneumothorax . CARDIOVASCULAR: Heart size appears within normal limits. No significant atherosclerotic calcification present. OSSEOUS STRUCTURES: No acute osseous abnormality identified. VISUALIZED UPPER ABDOMEN: Unremarkable. OTHER FINDINGS: None. IMPRESSION: No focal consolidation.
--- NOTE | 2018-04-24 14:52 | PCM.BM ---
<Clau Lubin - Last Filed: 04/24/18 14:51> Treatment Plan Problems - Problems identified on initial assessmt potential for alcohol withdrawals Date Initiated: 04/24/18 Assessment reference: NA Status: Active Treatment assets and liabiliti Patient Assests: adapts well, educated, ADL independent, good support system, negotiates basic needs Patient Liabilities: substance abuse, other - Milieu Protocol Maintain good personal hygiene: daily Encourage regular showers, daily Remind patient to perform daily oral care, daily Assist patient to perform ADL's Conduct patient checks and document Observation sheet: Q15 minutes Maintain personal safety: every shift Educate patient to report safety concerns to staff, every shift Monitor environment for contraband/sharps Medication safety: Monitor for expected outcome, potential side effects: every shift, Assess barriers to learning: every shift, Assess readiness for medication education: every shift <Gasper Harper - Last Filed: 04/25/18 12:12> - Diagnosis (1) Alcohol use disorder, severe, dependence Status: Acute Interventions: 04/25/18 12:12 * Assess 7x/week regarding severity of withdrawal * Educate regarding risks, benefits, side effects and alternatives of medications * Use Motivational Interviewing for abstinence * Use CBT for relapse prevention * Medication management for withdrawal symptoms * Encourage medication assisted treatment * <Kathryn Rod - Last Filed: 05/02/18 09:35> Family Contact Family involvement: No known Family/SO - Goals for Treatment Patient goals for treatment: Complete detox and apply for long-term inpatient rehab. Discharge/Continuing Care - Education Needs Education Needs: Patient Medication, Patient Diagnosis/Disease Process, Patient Coping Skills, Patient Anger Management skills, Patient Placement options, Patient Community resources, Patient Other (diabetic care maintenance) - Discharge Discharge Criteria: Ability to care for self, No longer exhibiting s/s of withdrawal, Reduction of target symptoms Discharge to:: Substance Abuse Rehab - Treatment Team Participation Patient/Family/SO Statement: 05/02/18 09:35 "I need to go inpatient somewhere..." Discussed with Family/SO: No Was Patient/Family/SO present at Treatment Team Meeting: Yes
[2018-04-24] MEDS: (Novolog) Insulin Aspart, Recombinant 100 u/ml 10 ml vial SC SCH ×2 (17:30→21:08)
[2018-04-25] MEDS: (Novolog) Insulin Aspart, Recombinant 100 u/ml 10 ml vial SC SCH ×4 (09:01→21:11)
[2018-04-25] MEDS: Multiple Vitamins Tab PO SCH (09:29)
--- NOTE | 2018-04-25 12:06 | CARD ---
APPROVED REPORT Date of service: 04/24/2018 EKG Measurement Heart [id number] <Conclusion> Sinus tachycardia Possible Left atrial enlargement Borderline ECG
--- NOTE | 2018-04-25 12:11 | PCM.PSYCH ---
Initial Psychiatric Evaluation - Initial Psychiatric Evaluation Type of Admission: Voluntary Legal Status: Capacity Chief Complaint (in patient's own words): "Too much alcohol" History of Present Illness and Precipitating Events: The patient is seen, chart reviewed and case discussed. 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 The patient admits to drinking 2 to 3 pints every day for the past 2 years. However he first started drinking heavily 10 years ago. He smokes 2 packs per day cigarette and denies all other drugs. No history of DTs or seizures but he has severe wdw sxs He has never been to rehab but he was with us last year. Past psych history: Denies but he now feels depressed. Family psych history: Denies Medical history: Diabetes. He was on metformin and glyp. but he stopped and just kept drinking and his sugar was high on admission again. Current Medications: Active Medications Generic Name Dose Route Start Last Admin Trade Name Danelle PRN Reason Stop Dose Admin Chlordiazepoxide 25 mg 04/24/18 16:00 04/25/18 09:28 Librium PO 04/29/18 15:59 25 mg Q6H LUCILA Administration Taper Chlordiazepoxide 25 mg 04/24/18 13:52 Librium PO Q4H PRN Alcohol Withdrawal Clonidine HCl 0.1 mg 04/24/18 13:52 Catapres PO Q4H PRN Symptoms of alcohol withdrawl Folic Acid 1 mg 04/25/18 10:00 04/25/18 09:27 Folic Acid PO 1 mg DAILY LUCILA Administration Glimepiride 2 mg 04/24/18 17:00 04/25/18 09:29 Amaryl PO 2 mg DAILY LUCILA Administration Insulin Aspart 0 unit 04/24/18 16:30 04/25/18 11:54 Novolog SC 8 units ACHS LUCILA Administration Protocol Metformin HCl 1,000 mg 04/25/18 08:00 04/25/18 09:02 Glucophage PO 1,000 mg BRK LUCILA Administration Multivitamins 1 tab 04/25/18 10:00 04/25/18 09:29 Hexavitamin PO 1 tab DAILY LUCILA Administration Nicotine 1 patch 04/25/18 10:00 04/25/18 09:46 Nicoderm Cq TD 1 patch DAILY LUCILA Administration Ondansetron HCl 4 mg 04/25/18 09:31 04/25/18 09:46 Zofran Odt PO 4 mg Q6 PRN Administration Nausea/Vomiting Quetiapine Fumarate 50 mg 04/24/18 22:00 04/24/18 21:07 Seroquel PO 50 mg HS LUCILA Administration Thiamine HCl 100 mg 04/25/18 10:00 04/25/18 09:27 Vitamin B1 Tab PO 100 mg DAILY LUCILA Administration Trazodone HCl 50 mg 04/24/18 13:52 04/24/18 21:07 Desyrel PO 50 mg HS PRN Administration Insomnia Past Psychiatric History - Past Psychiatric History Previous Treatment History: None Pertinent Medical Hx (Current Medical&Sleep Prob, Allergies): Allergies Allergy/AdvReac Type Severity Reaction Status Date / Time No Known Allergies Allergy Verified 04/24/18 11:12 traZODone [Desyrel] 100 mg PO HS #30 tab 06/26/17 Glimepiride [amaRYL] 4 mg PO ACBD #60 tab 04/12/18 Insulin Glargine,Hum.rec.anlog [Lantus Solostar] 16 unit SQ HS 30 Days insuln.pen 04/12/18 QUEtiapine [SEROquel] 50 mg PO HS #30 tab 04/12/18 MetFORMIN [glucoPHAGE] 1,000 mg PO AC 04/24/18 Review of Systems - Neurological Neurological: Tremor - Psychiatric Psychiatric: Abnormal Sleep Pattern, Anhedonia, Anxiety, Depression, Difficulty Concentrating. absent: Hallucinations, Homicidal Ideation, Mood Swings, S uicidal Ideation Mental Status Examination - Personal Presentation Personal Presentation: Looks stated age - Affect Affect: Other (intense, irate) - Motor Activity Motor Activity: Calm - Reliability in Providing Information Reliability in Providing Information: Fair - Speech Speech: Organized - Mood Mood: Depressed, Anxious, Other (irate) - Formal Thought Process Formal Thought Process: No Impairment - Cognitive Functions Orientation: Person, Place, Situation, Time Sensorium: Alert Attention/Concentration: Easily distracted Abstract Thinking: Suring Estimate of Intelligence: Average Judgement: Intact, as evidence by: Insight regarding need for hospitalization Memory: Recent intact, as evidence by: Ability to recall events of the day, Remote intact, as evidenced by: Abilit to recall sig. life events - Risk Risk: Withdrawal, Diminished functioning - Strength & Assets Inventory Strength & Assets Inventory: Cooperative - Limitations Limitations: Living alone DSM 5 DX - DSM 5 DSM 5 Diagnosis: Alcohol withdrawal - uncomplicated Alcohol use d/o - severe Tobacco use d/o - severe Personality d/o - unspecified Depressive d/o - unspecified DM HTN - Recommended/Plan of Treatment Treatment Recommendations and Plan of Treatment: Librium detox As needed medications Seroquel for sleep Gabapentin for augmentation Attend groups and activities Supportive therapy and psychoeducation [place] for abstinence CBT for relapse prevention Encourage MAT Refer to rehab or IOP Attend self-help groups as well Resume DM meds and FS coverage Check accucheck Consult if needed 35 min Projected ELOS: 4-5 days - Smoking Cessation Smoking Cessation Initiated: Yes
[2018-04-25] MEDS: Aluminum Hydroxide/Magnesium Hydroxide Susp (30 mL) PO PRN (16:06)
[2018-04-25 17:05] LABS: ALB/GLOB RATIO 1.1 (1.0-2.1); ALBUMIN 3.5 g/dL (3.5-5.0); AST/SGOT 29 U/L (17-59); BLOOD UREA NITROGEN 8 mg/dL (9-20); CALCIUM 8.7 mg/dl (8.6-10.4); GFR NON-AFRICAN AMERICAN > 60
[2018-04-25 17:06] LABS: ALT/SGPT 10 U/L (21-72)
[2018-04-25] MEDS: Calcium Carbonate 500 mg Chewable Antacid Tab PO SCH (17:20)
[2018-04-25] MEDS ORDERED: (Novolog) Insulin Aspart, Recombinant 100 u/ml 10 ml vial SC STA (21:25)
[2018-04-25] MEDS ORDERED: Potassium Chloride 20 mEq ER Tab PO ONE (21:43)
[2018-04-25 21:55] LABS: BASO # 0.1 K/uL (0.0-0.2); BASO % 0.8 % (0.0-2.0); EOS # 0.2 K/uL (0.0-0.7); EOS % 2.2 % (0.0-4.0); HEMOGLOBIN 10.9 g/dL (12.0-18.0); LYMPH # 2.9 K/uL (1.0-4.3); LYMPH % 40.7 % (20.0-40.0); MEAN CORPUSCULAR HEMOGLOBIN 29.8 pg (27.0-31.0); MEAN CORPUSCULAR HGB CONC 32.7 g/dL (33.0-37.0); MEAN PLATELET VOLUME 7.1 fL (7.2-11.7); MONO # 0.2 K/uL (0.0-0.8); MONO % 2.7 % (0.0-10.0); NEUT # 3.9 K/uL (1.8-7.0); NEUT % 53.6 % (50.0-75.0); RBC 3.66 Mil/uL (4.40-5.90); RED CELL DISTRIBUTION WIDTH 14.5 % (11.5-14.5); WHITE BLOOD COUNT 7.2 K/uL (4.8-10.8)
[2018-04-25 22:13] LABS: ALB/GLOB RATIO 1.1 (1.0-2.1); ALBUMIN 3.4 g/dL (3.5-5.0); ALT/SGPT 8 U/L (21-72); AST/SGOT 18 U/L (17-59); BLOOD UREA NITROGEN 8 mg/dL (9-20); CALCIUM 8.7 mg/dl (8.6-10.4); GFR NON-AFRICAN AMERICAN > 60
[2018-04-25 22:15] LABS: MEAN CELL VOLUME 91.4 fL (80.0-94.0)
[2018-04-26] MEDS: (Novolog) Insulin Aspart, Recombinant 100 u/ml 10 ml vial SC SCH ×4 (08:09→21:24)
[2018-04-26] MEDS: Multiple Vitamins Tab PO SCH (09:25)
[2018-04-26] MEDS: Calcium Carbonate 500 mg Chewable Antacid Tab PO SCH ×2 (09:31→17:58)
[2018-04-26] MEDS: Aluminum Hydroxide/Magnesium Hydroxide Susp (30 mL) PO PRN ×2 (13:10→17:21)
--- NOTE | 2018-04-26 13:20 | PCM.PYCHPN ---
Psychiatric Progress Note - Psychiatric Progress Note Patient seen today, length of contact: 19 min Patient Chief Complaint: "I am still withdrawing" Problems Identified/Issues Discussed: The pt is seen, chart reviewed, case discussed with staff. The pt is compliant with medications and reports no side-effects. Symptoms are improving but needs more time to stabilize. He complained of ongoing withdrawal symptoms and especially anxiety Valium given with good effect Pt attends groups and activities. Support given, psycho-education provided. After care discussed. Medication Change: Yes (Detox changes daily) Medical Record Reviewed: Yes Mental Status Examination - Cognitive Function Orientation: Person, Place, Situation, Time Memory: Intact Attention: Poor Concentration: Poor Association: WNL Fund of Knowledge: WNL - Mood Mood: Depressed, Anxious, Other (irate) - Affect Affect: Other (intense, irate) - Speech Speech: Appropriate - Formal Thought Process Formal Thought Process: No Impairment - Suicidal Ideation Suicidal Ideation: No - Homicidal Ideation Homicidal Ideation: No Goal/Treatment Plan - Goal/Treatment Plan Need for Continued Stay: Discharge may exacerbated symptoms, Severe functional impairment Progress Toward Problem(s) and Goals/Treatment Plan: Librium detox As needed medications Seroquel for sleep Gabapentin for augmentation Attend groups and activities Supportive therapy and psychoeducation [place] for abstinence CBT for relapse prevention Encourage MAT Refer to rehab or IOP Attend self-help groups as well Resume DM meds and FS coverage Check accucheck Consult if needed
[2018-04-26] MEDS: (Lantus) Insulin Glargine, Recombinant SC SCH (21:31)
[2018-04-26] MEDS ORDERED: Potassium Chloride 20 mEq ER Tab PO ONE (21:45)
[2018-04-27] MEDS: (Novolog) Insulin Aspart, Recombinant 100 u/ml 10 ml vial SC SCH ×4 (08:27→21:28)
[2018-04-27] MEDS: Calcium Carbonate 500 mg Chewable Antacid Tab PO SCH ×2 (09:17→17:10)
[2018-04-27] MEDS: Aluminum Hydroxide/Magnesium Hydroxide Susp (30 mL) PO PRN (09:17)
[2018-04-27] MEDS: Multiple Vitamins Tab PO SCH (09:19)
[2018-04-27] MEDS: guaiFENesin 200 mg/10 ml Syrup UD PO PRN (18:50)
[2018-04-27] MEDS: (Lantus) Insulin Glargine, Recombinant SC SCH (21:25)
--- NOTE | 2018-04-27 23:08 | PCM.PYCHPN ---
Psychiatric Progress Note - Psychiatric Progress Note Patient seen today, length of contact: 16 min Patient Chief Complaint: "I am not well" Problems Identified/Issues Discussed: The pt is seen, chart reviewed, case discussed with staff. The pt is compliant with medications and reports no side-effects. Symptoms are improving but needs more time to stabilize. Med-seeking, but also has genuine wdw sxs too and lots of anxiety Glucose is very high - addressed Pt attends groups and activities. Support given, psycho-education provided. After care discussed. He is not sure. Medication Change: Yes (Detox changes daily) Medical Record Reviewed: Yes Mental Status Examination - Cognitive Function Orientation: Person, Place, Situation, Time Memory: Intact Attention: Poor Concentration: Poor Association: WNL Fund of Knowledge: WNL - Mood Mood: Depressed, Anxious, Other (irate) - Affect Affect: Other (intense, irate) - Speech Speech: Appropriate - Formal Thought Process Formal Thought Process: No Impairment - Suicidal Ideation Suicidal Ideation: No - Homicidal Ideation Homicidal Ideation: No Goal/Treatment Plan - Goal/Treatment Plan Need for Continued Stay: Discharge may exacerbated symptoms, Severe functional impairment Progress Toward Problem(s) and Goals/Treatment Plan: Librium detox As needed medications Seroquel for sleep Gabapentin for augmentation Attend groups and activities Supportive therapy and psychoeducation [place] for abstinence CBT for relapse prevention Encourage MAT Refer to rehab or IOP Attend self-help groups as well Resume DM meds and FS coverage Check accucheck Consult if needed
[2018-04-28] MEDS: guaiFENesin 200 mg/10 ml Syrup UD PO PRN ×2 (01:35→19:05)
[2018-04-28] MEDS: (Novolog) Insulin Aspart, Recombinant 100 u/ml 10 ml vial SC SCH ×4 (08:30→21:04)
[2018-04-28] MEDS: Calcium Carbonate 500 mg Chewable Antacid Tab PO SCH ×2 (09:27→17:03)
[2018-04-28] MEDS: Multiple Vitamins Tab PO SCH (09:27)
--- NOTE | 2018-04-28 13:32 | PCM.PYCHPN ---
Psychiatric Progress Note - Psychiatric Progress Note Patient seen today, length of contact: 17 min Patient Chief Complaint: "I am a little better - my stomach hurts" Problems Identified/Issues Discussed: The pt is seen, chart reviewed, case discussed with staff. Support and psychoeducation given, CBT and ME used briefly No new symptoms reported, improving slowly and needs more time No SEs from medications, risks discussed. Protonix added for stomach After care discussed Medication Change: Yes (Detox changes daily) Medical Record Reviewed: Yes Mental Status Examination - Cognitive Function Orientation: Person, Place, Situation, Time Memory: Intact Attention: Poor Concentration: Poor Association: WNL Fund of Knowledge: WNL - Mood Mood: Depressed, Anxious, Other (irate) - Affect Affect: Other (intense, irate) - Speech Speech: Appropriate - Formal Thought Process Formal Thought Process: No Impairment - Suicidal Ideation Suicidal Ideation: No - Homicidal Ideation Homicidal Ideation: No Goal/Treatment Plan - Goal/Treatment Plan Need for Continued Stay: Discharge may exacerbated symptoms, Severe functional impairment Progress Toward Problem(s) and Goals/Treatment Plan: Librium detox As needed medications Seroquel for sleep Gabapentin for augmentation Attend groups and activities Supportive therapy and psychoeducation [place] for abstinence CBT for relapse prevention Encourage MAT Refer to rehab or IOP Attend self-help groups as well Resume DM meds and FS coverage Check accucheck Consult if needed
[2018-04-28] MEDS: Pantoprazole 20 mg EC Tab PO SCH (13:48)
[2018-04-28] MEDS: Aluminum Hydroxide/Magnesium Hydroxide Susp (30 mL) PO PRN (15:49)
[2018-04-28] MEDS: (Lantus) Insulin Glargine, Recombinant SC SCH (21:00)
[2018-04-29] MEDS: (Novolog) Insulin Aspart, Recombinant 100 u/ml 10 ml vial SC SCH ×4 (08:23→21:23)
[2018-04-29 09:07] LABS: ALB/GLOB RATIO 1.1 (1.0-2.1); ALBUMIN 3.5 g/dL (3.5-5.0); ALT/SGPT 22 U/L (21-72); AST/SGOT 25 U/L (17-59); BLOOD UREA NITROGEN 12 mg/dL (9-20); CALCIUM 8.8 mg/dl (8.6-10.4); GFR NON-AFRICAN AMERICAN > 60; LIPASE 33 U/L (23-300)
[2018-04-29 09:25] LABS: BASO % 0.7 % (0.0-2.0); EOS # 0.3 K/uL (0.0-0.7); EOS % 5.1 % (0.0-4.0); HEMOGLOBIN 11.8 g/dL (12.0-18.0); LYMPH # 2.7 K/uL (1.0-4.3); LYMPH % 49.2 % (20.0-40.0); MEAN CELL VOLUME 93.3 fL (80.0-94.0); MEAN CORPUSCULAR HEMOGLOBIN 30.6 pg (27.0-31.0); MEAN CORPUSCULAR HGB CONC 32.8 g/dL (33.0-37.0); MEAN PLATELET VOLUME 7.5 fL (7.2-11.7); MONO # 0.6 K/uL (0.0-0.8); MONO % 11.2 % (0.0-10.0); NEUT # 1.8 K/uL (1.8-7.0); NEUT % 33.8 % (50.0-75.0); NRBC % 0.1 % (0.0-2.0); RBC 3.85 Mil/uL (4.40-5.90); RED CELL DISTRIBUTION WIDTH 15.4 % (11.5-14.5); WHITE BLOOD COUNT 5.4 K/uL (4.8-10.8)
[2018-04-29] MEDS: Aluminum Hydroxide/Magnesium Hydroxide Susp (30 mL) PO PRN ×2 (09:26→18:47)
[2018-04-29] MEDS: Multiple Vitamins Tab PO SCH (09:28)
[2018-04-29] MEDS: Pantoprazole 20 mg EC Tab PO SCH (09:29)
[2018-04-29] MEDS: Calcium Carbonate 500 mg Chewable Antacid Tab PO SCH ×2 (09:37→17:12)
--- NOTE | 2018-04-29 10:59 | PCM.PYCHPN ---
Psychiatric Progress Note - Psychiatric Progress Note Patient seen today, length of contact: 17 min Patient Chief Complaint: I am feeling little better Problems Identified/Issues Discussed: Patient was seen and evaluated, chart reviewed and discussed with the staff. Patient still reports withdrawal symptoms and still reports sweating, headaches, anxiety and shakes. Patient reports improvement in his mood and denies any feelings of hopelessness and helplessness. He denies any auditory hallucinations or any paranoia. He is compliant with the withdrawal medications and denies any side effects Symptoms are improving but he needs to stay longer for further stabilization. Supportive therapy was given Medication Change: Yes (Detox changes daily) Medical Record Reviewed: Yes Mental Status Examination - Cognitive Function Orientation: Person, Place, Situation, Time Memory: Intact Attention: Poor Concentration: Poor Association: WNL Fund of Knowledge: WNL - Mood Mood: Depressed, Anxious, Other (irate) - Affect Affect: Other (intense, irate) - Speech Speech: Appropriate - Formal Thought Process Formal Thought Process: No Impairment - Suicidal Ideation Suicidal Ideation: No - Homicidal Ideation Homicidal Ideation: No Goal/Treatment Plan - Goal/Treatment Plan Need for Continued Stay: Discharge may exacerbated symptoms, Severe functional impairment Progress Toward Problem(s) and Goals/Treatment Plan: Alcohol withdrawal - uncomplicated Alcohol use d/o - severe Tobacco use d/o - severe Personality d/o - unspecified Depressive d/o - unspecified DM HTN Librium detox As needed medications Seroquel for sleep Gabapentin for augmentation Attend groups and activities Supportive therapy and psychoeducation [place] for abstinence CBT for relapse prevention Encourage MAT Refer to rehab or IOP Attend self-help groups as well Resume DM meds and FS coverage Check accucheck Consult if needed
[2018-04-29] MEDS: (Lantus) Insulin Glargine, Recombinant SC SCH (21:28)
[2018-04-30] MEDS: (Novolog) Insulin Aspart, Recombinant 100 u/ml 10 ml vial SC SCH ×4 (08:39→21:17)
[2018-04-30] MEDS: Pantoprazole 20 mg EC Tab PO SCH (09:16)
[2018-04-30] MEDS: Calcium Carbonate 500 mg Chewable Antacid Tab PO SCH ×2 (09:16→17:04)
[2018-04-30] MEDS: Multiple Vitamins Tab PO SCH (09:16)
[2018-04-30] MEDS: Aluminum Hydroxide/Magnesium Hydroxide Susp (30 mL) PO PRN (10:40)
--- NOTE | 2018-04-30 21:08 | PCM.PYCHPN ---
Psychiatric Progress Note - Psychiatric Progress Note Patient seen today, length of contact: 15 minutes Patient Chief Complaint: I am feeling better. Problems Identified/Issues Discussed: Patient seen, chart reviewed, case discussed with the staff. Issues related to illness and treatment were discussed with the patient and staff. Reported compliant with treatment with no adverse affects. Tolerating treatment very well. Patient reported feeling better. His blood sugar is still not in control. Will call medical consult. Mood reported as anxious. Affect appropriate. Calm and cooperative. Awake, alert and oriented 3. Speech soft with good eye contact. Aftercare discussed with the patient. At the time of evaluation, patient denied any delusions, auditory or visual hallucinations, suicidal ideations or homicidal ideations. Medical Problems: Diabetes mellitus Diagnostic Results: Reviewed DSM 5 Symptoms Update: Some improvement with treatment. Medication Change: No Medical Record Reviewed: Yes Consults ordered or reviewed: Medical consult Mental Status Examination - Cognitive Function Orientation: Person, Place, Situation, Time Memory: Intact Attention: WNL Concentration: WNL Association: [facility] Fund of Knowledge: [facility] Decription of patient's judgement and insights: Fair - Mood Mood: Anxious - Affect Affect: Other (Appropriate) - Speech Speech: Appropriate - Formal Thought Process Formal Thought Process: No Impairment Psychotic Thoughts and Behaviors: None - Suicidal Ideation Suicidal Ideation: No - Homicidal Ideation Homicidal Ideation: No Goal/Treatment Plan - Goal/Treatment Plan Need for Continued Stay: Remain at risks for inpatient hospitalization, Discharge may exacerbated symptoms, Severe functional impairment Progress Toward Problem(s) and Goals/Treatment Plan: Patient is improving with treatment. Patient/staff education. Supportive therapy. CBT for relapse prevention. [place] for abstinence. Will call medical consult for uncontrolled diabetes mellitus. Continue rest of the treatment as before. Patient will go to [facility] in [place] for follow-up care after discharge from the hospital. Estimated Date of D/C: 05/01/18 - Smoking Cessation Smoking Cessation Initiated: Yes
[2018-04-30] MEDS: (Lantus) Insulin Glargine, Recombinant SC SCH (21:09)
--- NOTE | 2018-05-01 03:27 | CON ---
DATE: 04/30/2018 ENDOCRINOLOGY CONSULT LOCATION: Room 762. HISTORY OF PRESENT ILLNESS: This is a 42-year-old male with recent uncontrolled type 2 insulin-requiring diabetes presenting here with alcohol intoxication and is now admitted to the alcohol detox unit and is being referred also now for diabetic management because of recent marked hyperglycemic accelerations as noted thereof. PAST MEDICAL HISTORY: As mentioned above, history of type 2 insulin-requiring diabetes, previously seen a month ago here for diabetic ketoacidosis and dehydration and actually improved metabolically on a combination of oral hypoglycemic therapy and basal insulin therapy given as Lantus at 16 units subcu at bedtime daily. He was also on a combination of Amaryl given as 4 mg b.i.d. and metformin 1 g b.i.d. as given with Januvia 100 mg once daily. History of hypertension and dyslipidemia, history of chronic alcoholism as noted. History of generalized anxiety state, on anxiolytic medications taken p.r.n. History of chronic gastritis. FAMILY HISTORY: Positive for diabetes, hypertension. SOCIAL HISTORY: The patient admits to chronic alcoholism with recent alcoholic intoxication, consuming 2-3 pints of alcohol a day; history of nicotine dependence and smokes two packs a day for many years now. The patient actually is currently homeless as his family in [place] refused the patient to return to their home. REVIEW OF SYSTEMS: As mention above, admits to generalized body weakness with progressive bouts of dizziness and lightheadedness, worse on the day of admission. Also admits to easy fatigability and tiredness with hypersomnolence as noted. No chest pains, palpitations, or PND. His oral intake has been variable with nausea, dyspepsia, and diffuse upper abdominal pain. Also admits to marked polyuria, nocturia, polydipsia. PHYSICAL EXAMINATION: GENERAL: This is an average-built male in no apparent distress. VITAL SIGNS: Blood pressure of 140/80, pulse of 100 beats per minute and regular, temperature 98, respirations 20. Height is 5 feet 9 inches. Weight is 140 pounds. HEENT: Head is normocephalic. Eyes: Anicteric with pink conjunctivae. Funduscopy is not possible at this time. Ears, nose, and throat otherwise normal. NECK: Supple. Thyroid gland is normal in size. No carotid bruits or any cervical adenopathy. CARDIOPULMONARY: Some adynamic precordium. S1 and S2 are rapid and regular. LUNGS: Clear to auscultation. ABDOMEN: Flat, soft with positive bowel sounds. EXTREMITIES. No peripheral edema. Pulses are +2 bilaterally. LABORATORY DATA: His chemistries showed initially a BUN of 7, sodium 127, potassium 3.4, chloride 85, CO2 of 27, glucose 246, and creatinine 0.4. TSH is 0.25, lipase is 18. ASSESSMENT: This is a 42-year-old male with uncontrolled and decompensated type 2 insulin-requiring diabetes with extremes of glycemic fluctuations and recent hyperglycemic accelerations of glucose levels ranging from 369 to over 500 mg/dL related to drug omission and poor adherence to healthier food choices and continued chronic alcoholism and recent acute alcohol intoxication. PLAN OF MANAGEMENT: We will continue the basal insulin regimen as ordered with Lantus given as 20 units subcu at bedtime daily, and we will titrate incrementally as indicated to optimize metabolic control. We will modify the coverage scale to obviate hypoglycemia and detailed orders have been given. We will try to avoid giving him prandial insulin with NovoLog given t.i.d. because of his current homelessness situation. We will maximize his Amaryl to 4 mg b.i.d. before meals and continue the metformin at 1 g b.i.d. as ordered. We will also add Januvia at 100 mg once daily in the morning, to start tomorrow as ordered. We will obtain serial chemistries and supplement accordingly as needed. We will also repeat the thyroid studies as indicated as the initial levels were indicative of the so-called acute sick euthyroid syndrome. We will follow and advise accordingly. Khushi Ulrich MD
[2018-05-01] MEDS: (Novolog) Insulin Aspart, Recombinant 100 u/ml 10 ml vial SC SCH ×4 (08:02→21:36)
[2018-05-01] MEDS: Pantoprazole 20 mg EC Tab PO SCH (09:51)
[2018-05-01] MEDS: Multiple Vitamins Tab PO SCH (09:51)
[2018-05-01] MEDS: Calcium Carbonate 500 mg Chewable Antacid Tab PO SCH ×2 (09:55→18:24)
--- NOTE | 2018-05-01 12:57 | PCM.RRT ---
RN ADMISSIONS Nurses Assessment - Situation Date: 05/01/18 Time RN ADMISSIONS was called: 12:46 RN ADMISSIONS Responder Arrival Time:: 12:48 RN ADMISSIONS Location:: Med/Detox Room Number: 762B RN ADMISSIONS Reason for Call: Respiratory Distress RN ADMISSIONS Called By: RN - IV IV Inserted during RN ADMISSIONS?: No - Respiratory RN ADMISSIONS Delivery Method: Room Air - Diagnostic Test Ordered CT Scan: Yes (CT neck) - Time RN ADMISSIONS Ended Time RN ADMISSIONS Ended: 12:51 - Recommendations 5) RN ADMISSIONS Level of Care Recommendations: Remain in current setting - Neurological Status (Select all that apply): Alert, Responsive, Oriented - Respiratory Oxygen Delivery Method: Room Air - Constitutional Appears: Non-toxic, No Acute Distress - Head Head Exam: ATRAUMATIC, NORMOCEPHALIC - Eyes Eye Exam: EOMI, Normal appearance - Respiratory Exam Respiratory Exam: Clear to Ausculation Bilateral, NORMAL BREATHING PATTERN. absent: Rales, Rhonchi, Wheezes - Cardiovascular Exam Cardiovascular Exam: REGULAR RHYTHM, +S1, +S2 - GI/Abdominal Exam GI & Abdominal Exam: Soft, Normal Bowel Sounds. absent: Tenderness - Neurological Exam Neurological Exam: Alert, Awake, Oriented x3 - Extremities Exam Extremities Exam: Normal Capillary Refill. absent: Calf Tenderness Plan - Assessment of Findings&Treatment Plan Patient had tried to self induce vomiting as he was feeling a choking sensation. He was able to produce liquid comprising of what he had this morning. Nurse attempted to Heimlich, however patient was sufficiently breathing and nothing came out. RN ADMISSIONS called by RN for difficulty breathing @ 1246 Vitals taken on arrival: T afebrile HR 95 BP 118/74 RR 16 O2 99% RA Patient says he still has the sensation of something stuck. CT Neck ordered. If CT neg, patient is clear for discharge per medicine. RN ADMISSIONS ended at 1251.
[2018-05-01] MEDS ORDERED: Iodixanol 320 MG/ML 100 ML BOTTLE IV ONE (14:06)
--- NOTE | 2018-05-01 16:48 | CT ---
Date of service: 05/01/2018 PROCEDURE: CT NECK WITH CONTRAST HISTORY: R/o obstruction COMPARISON: None available. TECHNIQUE: CT of the neck with intravenous contrast. Coronal and sagittal reformats generated. Intravenous contrast dose: 100 mL Visipaque 320 Radiation dose: Total exam DLP = 100 mL Visipaque 320 mGy-cm. This CT exam was performed using one or more of the following dose reduction techniques: Automated exposure control, adjustment of the mA and/or kV according to patient size, and/or use of iterative reconstruction technique. FINDINGS: NASOPHARYNX: Unremarkable. SUPRAHYOID NECK: Unremarkable oropharynx, oral cavity, parapharyngeal space and retropharyngeal space. INFRAHYOID NECK: Unremarkable larynx, hypopharynx, and supraglottic space. Vocal cords intact. MASS: None. GLANDS: Parotid and submandibular glands unremarkable. Normal size thyroid gland, without nodule. LYMPH NODES: Shotty subcentimeter cervical nodes are seen bilaterally. CERVICAL SPINE: No fracture or focal lesion. VASCULAR STRUCTURES: There is severe stenosis of the right internal carotid artery beginning at the carotid bifurcation. This is best demonstrated on series 2, image 47. There is mural thrombus or atheromatous plaque surrounding the narrowed lumen. There is focal intimal calcification at this isolated level, of uncertain significance. In retrospect, on examination of 05/02/2014, there is a similar focal atheromatous plaque to a much lesser extent on the right. This could represent atherosclerosis. However, it is an isolated focus. In addition, there is abnormal soft tissue density about the distal common carotid and the internal carotid artery bilaterally. This is of uncertain significance. The possibility of a vasculitis must be considered. Appropriate clinical and laboratory evaluation is advised. Consider vascular surgical consult. OTHER FINDINGS: The upper thoracic esophagus has a moderate amount of dependent fluid creating an air-fluid level. This indicates either extensive gastroesophageal reflux or stenosis/obstruction of the more distal thoracic esophagus. The reported episode of choking earlier on this same date may have been the result of aspiration of the patient's secretions. IMPRESSION: No radiopaque foreign body fluid within the upper thoracic esophagus reflecting either extensive reflux or distal stenosis/obstruction in the thoracic esophagus. Focal stenosis of the right internal carotid artery with abnormal soft tissue density between the jugular vein and internal carotid artery bilaterally, of uncertain significance rule out vasculitis. No other significant abnormality.
--- NOTE | 2018-05-01 18:10 | PCM.PYCHPN ---
Psychiatric Progress Note - Psychiatric Progress Note Patient seen today, length of contact: 15 minutes Patient Chief Complaint: I am feeling better. Problems Identified/Issues Discussed: Patient seen, chart reviewed, case discussed with the staff. Issues related to illness and treatment were discussed with the patient and staff. Reported compliant with treatment with no adverse affects. Tolerating treatment very well. Patient reported feeling better. His blood sugar is better after adjustment of his medication for blood sugar. Patient was seen by Dr. Khushi philip and today cleared the patient medically for discharge. Later while eating dinner, for breast start in his throat and patient choked. Heimlich procedure was attempted and meanwhile cold was announced. Patient was evaluated by medical team, reported was removed from his neck and ordered CT neck for further evaluation. CT neck later found abnormal. Patient's discharge was canceled until patient will be evaluated by medical team and cleared him medically. Mood reported as anxious. Affect appropriate. Calm and cooperative. Awake, alert and oriented 3. Speech soft with good eye contact. Aftercare discussed with the patient. At the time of evaluation, patient denied any delusions, auditory or visual hallucinations, suicidal ideations or homicidal ideations. Medical Problems: Diabetes mellitus Diagnostic Results: Reviewed DSM 5 Symptoms Update: Improvement with treatment Medication Change: No Medical Record Reviewed: Yes Consults ordered or reviewed: Reviewed Mental Status Examination - Cognitive Function Orientation: Person, Place, Situation, Time Memory: Intact Attention: WNL Concentration: WNL Association: WN Fund of Knowledge: [facility] Decription of patient's judgement and insights: Fair - Mood Mood: Anxious - Affect Affect: Other (Appropriate) - Speech Speech: Appropriate - Formal Thought Process Formal Thought Process: No Impairment Psychotic Thoughts and Behaviors: None - Suicidal Ideation Suicidal Ideation: No - Homicidal Ideation Homicidal Ideation: No Goal/Treatment Plan - Goal/Treatment Plan Need for Continued Stay: Remain at risks for inpatient hospitalization, Discha rge may exacerbated symptoms, Severe functional impairment Progress Toward Problem(s) and Goals/Treatment Plan: Patient is improving with treatment. Patient/staff education. Supportive therapy. CBT for relapse prevention. [place] for abstinence. Will call medicine again. Patient will go to [facility] in [place] for follow-up care after discharge from the hospital. Estimated Date of D/C: 05/01/18 - Smoking Cessation Smoking Cessation Initiated: Yes
--- NOTE | 2018-05-01 18:42 | CP.PCM.PCO ---
Physician Communication Note - Physician Communication Note Physician Communication Note: please see above
[2018-05-01 19:57] VITALS: RESP 18
[2018-05-01] MEDS: (Lantus) Insulin Glargine, Recombinant SC SCH (21:16)
[2018-05-01] MEDS ORDERED: Magnesium Hydroxide Susp 30 ml UD PO PRN (21:20)
[2018-05-02] MEDS: (Novolog) Insulin Aspart, Recombinant 100 u/ml 10 ml vial SC SCH (08:10)
--- NOTE | 2018-05-02 08:14 | PN ---
DATE: 05/01/2018 ENDOCRINOLOGY FOLLOWUP NOTE LOCATION: Room 762. SUBJECTIVE: This is a 42-year-old male with recent uncontrolled type 2 insulin-requiring diabetes, presenting here for alcohol detox and also being followed closely for metabolic management because of marked hyperglycemic accelerations related to drug omission as noted thereof. His glycemic levels are fluctuating, but improved overnight, and the glucose values have ranged from 146 to 154 mg/dL today, and it was 289 at bedtime last night. LABORATORY DATA: His chemistry showed a BUN of 12, sodium 137, potassium 4.1, chloride 100, CO2 of 29, glucose 138, creatinine 0.6. ASSESSMENT: This is a 42-year-old male with uncontrolled and decompensated type 2 insulin-requiring diabetes with marked hyperglycemic accelerations related to drug omission and is now undergoing alcohol detoxification as noted. PLAN OF MANAGEMENT: We will continue the basal insulin regimen another type of given as Lantus 20 units subcu at bedtime daily as given. We will continue the triple oral hypoglycemic drug therapy with Januvia given as 100 mg daily and metformin at 1 g b.i.d. and Amaryl given as 4 mg b.i.d. as ordered. We will also obtain serial chemistries and supplement accordingly as needed. We will follow. Khushi Ulrich MD
[2018-05-02] MEDS: Calcium Carbonate 500 mg Chewable Antacid Tab PO SCH (09:22)
[2018-05-02] MEDS: Multiple Vitamins Tab PO SCH (09:22)
[2018-05-02] MEDS: Pantoprazole 20 mg EC Tab PO SCH (09:22)
[2018-05-02 09:40] VITALS: BP 110/80; PULSE 102; TEMP 97.2; O2SAT 100
--- NOTE | 2018-05-02 18:45 | PN ---
DATE: 05/02/2018 ENDOCRINOLOGY FOLLOWUP NOTE LOCATION: Room 762. SUBJECTIVE: This is a 42-year-old male with recent uncontrolled type 2 insulin-requiring diabetes, admitted to alcohol detox and now being followed closely for metabolic management. His glycemic levels have remarkably improved overnight with glucose values ranging from 117 to 125 and 171 mg/dL. LABORATORY DATA: His latest chemistry shows a BUN of 12, sodium 137, potassium 4.1, chloride 100, CO2 of 29, glucose 138, and creatinine 0.6. ASSESSMENT: This is a 42-year-old male with uncontrolled and decompensated type 2 insulin-requiring diabetes with marked hyperglycemic accelerations related to a recent drug omission and is now admitted to alcohol detox because of recent acute alcoholic intoxication. PLAN OF MANAGEMENT: We will continue the modified basal and oral hypoglycemic drug regimen as given. We will continue his Lantus given as 20 unit subcutaneously at bedtime daily as ordered. We will continue also the triple oral hypoglycemic regimen with Januvia given at 100 mg daily and metformin at 1 g twice daily and Amaryl at 4 mg twice daily as ordered. He will follow up with his medical doctor for outpatient and ongoing medical and diabetic management. He will be transferred today to the alcohol rehab unit as noted. The imperative need for tighter metabolic control was discussed with the patient at bedside. We will follow. Khushi Ulrich MD
--- NOTE | 2018-05-02 23:30 | PCM.PYCHDC ---
Mental Status Examination - Mental Status Examination Orientation: Person, Place, Situation, Time Memory: Intact Mood: Neutral Affect: Other (Appropriate) Speech: Appropriate Attention: WNL Concentration: WNL Association: WNL Fund of Knowledge: WNL Formal Thought Process: No Impairment Description of patient's judgement and insight: Fair Psychotic Thoughts and Behaviors: None Suicidal Ideation: No Current Homicidal Ideation?: No Discharge Summary - Discharge Note Reason for Hospitalization: Alcohol use disorder severe Tobacco use disorder severe. Depressive disorder Laboratory Data: Abnormal Lab Results 05/02/18 08:01 POC Glucose (mg/dL) 125 H Consultations:: List each consultation separately and include: 1. Reason for request. 2. Findings. 3. Follow-up Consultations: Reviewed Summary of Hospital Course include:: 1. Description of specific treatment plan utilized for patients during their course of treatmen. 2. Summarize the time- course for resolution of acute symptoms and/or regressed behaviors. 3. Describe issues identified and worked on during hospitalization. 4. Describe medication utilized. 5. Describe medical problems identified and treated. 6. Reassessment of suicide risk Summary of Hospital Course: The patient is seen, chart reviewed and case discussed. 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 The patient admits to drinking 2 to 3 pints every day for the past 2 years. However he first started drinking heavily 10 years ago. He smokes 2 packs per day cigarette and denies all other drugs. No history of DTs or seizures but he has severe wdw sxs He has never been to rehab but he was with us last year. Past psych history: Denies but he now feels depressed. Family psych history: Denies Medical history: Diabetes. He was on metformin and glyp. but he stopped and just kept drinking and his sugar was high on admission again. During his stay in the hospital, patient was treated with Ativan taper for alcohol withdrawal symptoms. Was started on other PRN medications. During his admission his blood sugar was very uncontrolled due to noncompliance with the treatment. [employer] was consulted who adjusted the medications for blood sugar. With above treatments patient started feeling better, had no withdrawal symptoms, his blood sugar was controlled with medication adjustment. With above treatment, patient started feeling better, had no withdrawal symptoms and his blood sugar was also within normal limits. Patient was ready for discharge from the hospital. Patient was also cleared for discharge by director of hotel. At the time of evaluation and discharge, patient was awake, alert and oriented x3, had no delusions, no auditory or visual hallucinations, no suicidal ideations or homicidal ideations. Patient was discharged in a stable condition. - Final Diagnosis (DSM 5) Condition upon Discharge: FAIR Disposition: HOME/ ROUTINE Follow-up Treatment Plan: Patient will go to [facility] in [place] for follow-up care after discharge from the hospital. Prescriptions/Medication Reconciliation: busPIRone [Buspar] 10 mg PO BID #60 tab Gabapentin [Neurontin] 400 mg PO TID #90 cap Glimepiride [amaRYL] 4 mg PO ACBD #30 tab metFORMIN [glucOPHAGE] 1,000 mg PO BID #60 tab Omeprazole 40 mg PO DAILY #30 capsule. Pantoprazole [Protonix EC Tab] 20 mg PO DAILY #30 ect QUEtiapine [SEROquel] 200 mg PO HS #30 tab SITagliptin [Januvia] 100 mg PO DAILY #30 tab traZODone [Desyrel] 100 mg PO HS PRN #30 tab PRN Reason: Insomnia - Smoking Cessation Smoking Cessation Medication prescribed: No - Antipsychotic Medications Pt discharged on 2 or more routine antipsychotic medications: No
== END 2018-05-02 11:20 | disposition home or self-care (01) | DRG 750 ==
LOC: C.ER 11:03 → C.7D 13:43
PROVIDERS: ADMIT Psychiatry & Neurology Psychiatry; ATTEND Psychiatry & Neurology Psychiatry
PROC: HZ2ZZZZ Detoxification Services for Substance Abuse Treatment (ICD-10-PCS; principal; 2018-04-24)
PROC: HZ52ZZZ Individual Psychotherapy for Substance Abuse Treatment, Cognitive-Behavioral (ICD-10-PCS; 2018-04-24)
PROC: HZ59ZZZ Individual Psychotherapy for Substance Abuse Treatment, Supportive (ICD-10-PCS; 2018-04-24)
PROC: HZ56ZZZ Individual Psychotherapy for Substance Abuse Treatment, Psychoeducation (ICD-10-PCS; 2018-04-24)
PROC: HZ46ZZZ Group Counseling for Substance Abuse Treatment, Psychoeducation (ICD-10-PCS; 2018-04-24)
PROC: GZHZZZZ Group Psychotherapy (ICD-10-PCS; 2018-04-24)
PROC: GZ58ZZZ Individual Psychotherapy, Cognitive-Behavioral (ICD-10-PCS; 2018-04-24)
PROC: GZ56ZZZ Individual Psychotherapy, Supportive (ICD-10-PCS; 2018-04-24)
PROC: HZ42ZZZ Group Counseling for Substance Abuse Treatment, Cognitive-Behavioral (ICD-10-PCS; 2018-04-24)
DX: F10.230 Alcohol dependence with withdrawal, uncomplicated (principal); E11.65 Type 2 diabetes mellitus with hyperglycemia; F10.220 Alcohol dependence with intoxication, uncomplicated; Y90.0 Blood alcohol level of less than 20 mg/100 ml; E78.5 Hyperlipidemia, unspecified; F32.9 Major depressive disorder, single episode, unspecified; F41.1 Generalized anxiety disorder; I10 Essential (primary) hypertension; Z79.4 Long term (current) use of insulin; Z91.19 Patient's noncompliance with other medical treatment and regimen; F17.210 Nicotine dependence, cigarettes, uncomplicated

== ENCOUNTER 2018-05-07 09:43 | Emergency (ER) | payer OTHER ==
[2018-05-07 09:44] VITALS: BMI 22.1
[2018-05-07 10:01] VITALS: O2SAT 100
[2018-05-07 12:05] VITALS: BP 113/79; PULSE 85; RESP 18; TEMP 98.1
--- NOTE | 2018-05-07 12:57 | C.PDOC ---
History Of Present Illness 42 year old male presents to the ED for evaluation of a foreign body sensation to his throat. Patient states he choked on a hamburger while was receiving detox one week ago. Patient underwent a CT scan at the time, but is unsure of the results. He returns to the ED because he is still experiencing the sensation. Patient has been tolerating liquids, but reports some difficulty with swallowing sold foods. He reports mild throat pain. Otherwise, patient denies fever, chills, headache. Time Seen by Provider: 05/07/18 09:59 Chief Complaint (Nursing): ENT Problem History Per: Patient History/Exam Limitations: None Onset/Duration Of Symptoms: Days Current Symptoms Are (Timing): Still Present Past Medical History Reviewed: Historical Data, Nursing Documentation, Vital Signs Vital Signs: Last Vital Signs Temp 98.1 F 05/07/18 11:12 Pulse 85 05/07/18 11:12 Resp 18 05/07/18 11:12 BP 113/79 05/07/18 11:12 Pulse Ox 100 05/07/18 11:12 - Medical History PMH: Anxiety, Diabetes (metformin), Gastritis Denies: Depression, Hepatitis, HIV, HTN, Chronic Kidney Disease, Seizures, Sexually Transmitted Disease Surgical History: No Surg Hx - [facility] Procedures CLOSURE SKIN & SUBCUTANEOUS NEC (06/04/03) DETOXIFICATION SERVICES FOR SUBSTANCE ABUSE TREATMENT (04/24/18) ESOPHAGOGASTRODUODENOSCOPY [EGD] W/CLOSED BIOPSY (11/12/14) GROUP HIGH LEAD YARDER FOR SUBSTANCE ABUSE TREATMENT, PSYCHOEDUCATION (04/24/18) GROUP HIGH LEAD YARDER FOR SUBSTANCE ABUSE, COGNITIVE BEHAVIORAL (04/24/18) GROUP PSYCHOTHERAPY (04/24/18) INDIV PSYCHOTHERAPY FOR SUBSTANCE ABUSE TREATMENT, SUPPORT (04/24/18) INDIV PSYCHOTHERAPY FOR SUBSTANCE ABUSE, COGNITIV BEHAVIORAL (04/24/18) INDIV PSYCHOTHERAPY FOR SUBSTANCE ABUSE, PSYCHOEDUCATION (04/24/18) INDIVIDUAL PSYCHOTHERAPY, COGNITIVE-BEHAVIORAL (04/24/18) INDIVIDUAL PSYCHOTHERAPY, SUPPORTIVE (04/24/18) INFLUENZA VACCINATION (02/05/13) LARYGNOSCOPY AND OTH TRACHEOSCOPY (05/02/14) PHARMACOTHERAPY FOR SUBSTANCE ABUSE, NICOTINE REPLACE (06/20/17) Family History: States: Unknown Family Hx - Social History Hx Tobacco Use: Yes Hx Alcohol Use: Yes (Discharged from Detox) Hx Substance Use: No - Immunization History Hx Tetanus Toxoid Vaccination: Yes Hx Influenza Vaccination: Yes (02/2018) Hx Pneumococcal Vaccination: No Review Of Systems Constitutional: Negative for: Fever, Chills ENT: Positive for: Throat Pain, Other Neurological: Negative for: Headache Physical Exam - Physical Exam Appears: Non-toxic, No Acute Distress Skin: Normal Color, Warm, Dry Head: Atraumatic, Normacephalic Eye(s): bilateral: Normal Inspection Oral Mucosa: Moist Throat: Normal, No Erythema, No Exudate, No Drooling Neck: Supple Chest: Symmetrical, No Deformity Cardiovascular: Rhythm Regular Respiratory: Normal Breath Sounds Extremity: Normal ROM Neurological/Psych: Oriented x3, Normal Speech, Normal Cognition ED Course And Treatment O2 Sat by Pulse Oximetry: 100 (on RA) Pulse Ox Interpretation: Normal Medical Decision Making Medical Decision Making: Progress: Case discussed with Dr. Mack's certified juvenile probation officer. Patient will be evaluated in office tomorrow. Disposition - Disposition Referrals: Saurabh Mack MD [Staff Provider] - Disposition: HOME/ ROUTINE Disposition Time: 11:30 Condition: STABLE Additional Instructions: Follow up on 05/08/18 at 10:00am. Prescriptions: Famotidine [Pepcid] 1 tab PO BID #30 tab Instructions: Sore Throat in Adults Forms: [facility] (Comoran), General Discharge Instructions - Clinical Impression Clinical Impression: Throat pain in adult - Scribe Statement The provider has reviewed the documentation as recorded by the Scribe (Pat Gill) Provider Attestation: All medical record entries made by the Scribe were at my direction and personally dictated by me. I have reviewed the chart and agree that the record accurately reflects my personal performance of the history, physical exam, medical decision making, and the department course for this patient. I have also personally directed, reviewed, and agree with the discharge instructions and disposition.
== END 2018-05-07 11:33 | disposition home or self-care (01) ==
LOC: C.ER 09:43
DX: R07.0 Pain in throat (principal)

== ENCOUNTER 2018-05-18 14:58 | Emergency (ER) | payer OTHER ==
[2018-05-18 14:58] VITALS: BMI 22.1
[2018-05-18 15:17] VITALS: RESP 18
--- NOTE | 2018-05-18 15:19 | C.PDOC ---
History Of Present Illness 42 y/o male brought in by ambulance for ETOH intoxication. Patient was found wandering the streets with unsteady gait, and brought to the ED for evaluation. He denies any suicidal or homicidal ideation. Patient offers no medical complaints at this time. PMHx is significant for diabetes and alcohol abuse. Time Seen by Provider: 05/18/18 15:10 Chief Complaint (Nursing): Substance Abuse History Per: Patient History/Exam Limitations: intoxication Onset/Duration Of Symptoms: Hrs Current Symptoms Are (Timing): Still Present Modifying Factor(s): Alcohol Additional History Per: EMS Past Medical History Reviewed: Historical Data, Nursing Documentation, Vital Signs - Medical History PMH: Anxiety, Diabetes (metformin), Gastritis Denies: Depression, Hepatitis, HIV, HTN, Chronic Kidney Disease, Seizures, Sexually Transmitted Disease Other PMH: Alcohol abuse - [facility] Procedures CLOSURE SKIN & SUBCUTANEOUS NEC (06/04/03) DETOXIFICATION SERVICES FOR SUBSTANCE ABUSE TREATMENT (04/24/18) ESOPHAGOGASTRODUODENOSCOPY [EGD] W/CLOSED BIOPSY (11/12/14) GROUP COURT ATTENDANT FOR SUBSTANCE ABUSE TREATMENT, PSYCHOEDUCATION (04/24/18) GROUP COURT ATTENDANT FOR SUBSTANCE ABUSE, COGNITIVE BEHAVIORAL (04/24/18) GROUP PSYCHOTHERAPY (04/24/18) INDIV PSYCHOTHERAPY FOR SUBSTANCE ABUSE TREATMENT, SUPPORT (04/24/18) INDIV PSYCHOTHERAPY FOR SUBSTANCE ABUSE, COGNITIV BEHAVIORAL (04/24/18) INDIV PSYCHOTHERAPY FOR SUBSTANCE ABUSE, PSYCHOEDUCATION (04/24/18) INDIVIDUAL PSYCHOTHERAPY, COGNITIVE-BEHAVIORAL (04/24/18) INDIVIDUAL PSYCHOTHERAPY, SUPPORTIVE (04/24/18) INFLUENZA VACCINATION (02/05/13) LARYGNOSCOPY AND OTH TRACHEOSCOPY (05/02/14) PHARMACOTHERAPY FOR SUBSTANCE ABUSE, NICOTINE REPLACE (06/20/17) Family History: States: Unknown Family Hx - Social History Hx Tobacco Use: Yes Hx Alcohol Use: Yes (Discharged from Detox) Hx Substance Use: No - Immunization History Hx Tetanus Toxoid Vaccination: Yes Hx Influenza Vaccination: Yes (02/2018) Hx Pneumococcal Vaccination: No Review Of Systems Except As Marked, All Systems Reviewed And Found Negative. Constitutional: Negative for: Fever Cardiovascular: Negative for: Chest Pain Respiratory: Negative for: Shortness of Breath Gastrointestinal: Negative for: Vomiting, Abdominal Pain Neurological: Negative for: Weakness Psych: Positive for: Other (ETOH intoxication). Negative for: Suicidal ideation (or homicidal) Physical Exam - Physical Exam Appears: Non-toxic, No Acute Distress Skin: Warm, Dry Head: Atraumatic, Normacephalic Eye(s): bilateral: Normal Inspection, PERRL, EOMI Oral Mucosa: Moist Neck: Normal ROM Chest: Symmetrical Cardiovascular: Rhythm Regular, No Murmur Respiratory: Normal Breath Sounds, No Accessory Muscle Use, Other (No respiratory distress) Gastrointestinal/Abdominal: Soft, No Tenderness, No Distention Extremity: Bilateral: Atraumatic, Normal ROM Neurological/Psych: Other (Alert, +Alcohol on breath, otherwise calm and cooperative) Gait: Unsteady ED Course And Treatment O2 Sat by Pulse Oximetry: 99 (RA) Pulse Ox Interpretation: Normal Medical Decision Making Medical Decision Making: Impression: ETOH intoxication Plan: --Will monitor in the ED for clinical sobriety, and discharge when sober 17:00 On reassessment patient is clinically sober, AAOx3, ambulating in the ED with steady gait. Patient is asking to leave so he can get to his [facility] on time. Will discharge patient home, outpatient resources provided. Disposition Counseled Patient/Family Regarding: Diagnosis, Need For Followup - Disposition Referrals: Alcoholics Anonymous [Outside] Disposition: HOME/ ROUTINE Disposition Time: 17:05 Condition: STABLE Additional Instructions: Shelters list Instructions: Alcohol Use - When Is Drinking a Problem?, Alcohol Abuse and Alcoholism (DC) Forms: [facility] (Turkmen) - Clinical Impression Clinical Impression: Alcohol intoxication - Scribe Statement The provider has reviewed the documentation as recorded by the Michelle Cope Provider Attestation: All medical record entries made by the Michelle were at my direction and persona lly dictated by me. I have reviewed the chart and agree that the record accurately reflects my personal performance of the history, physical exam, medical decision making, and the department course for this patient. I have also personally directed, reviewed, and agree with the discharge instructions and disposition.
[2018-05-18 17:26] VITALS: BP 118/81; PULSE 102; TEMP 97.3; O2SAT 100
== END 2018-05-18 17:45 | disposition home or self-care (01) ==
LOC: C.ER 14:58
DX: F10.129 Alcohol abuse with intoxication, unspecified (principal); E11.9 Type 2 diabetes mellitus without complications; Z79.84 Long term (current) use of oral hypoglycemic drugs

== ENCOUNTER → 2018-05-18 18:14 | Emergency (ER) | payer OTHER ==
[2018-05-18 18:15] VITALS: BMI 22.1
== END | disposition left against medical advice (07) ==
LOC: C.ER 18:14
DX: Z02.89 Encounter for other administrative examinations (principal); F19.10 Other psychoactive substance abuse, uncomplicated

== ENCOUNTER 2018-06-13 11:53 | Inpatient (IN) | payer OTHER ==
[2018-06-13 11:53] VITALS: BMI 20.7
[2018-06-13 12:49] LABS: URINE BILIRUBIN NEGATIVE (NEGATIVE); URINE BLOOD NEGATIVE (NEGATIVE); URINE CLARITY Clear (Clear); URINE COLOR Yellow (YELLOW); URINE GLUCOSE (UA) 3+ mg/dL (Normal); URINE LEUKOCYTE ESTERASE NEG Leu/uL (Negative); URINE PROTEIN NEGATIVE (NEGATIVE); URINE UROBILINOGEN NORMAL mg/dL (0.2-1.0)
[2018-06-13 13:11] LABS: BARBITURATES, UR NEGATIVE (NEGATIVE); BENZODIAZEPINES, UR NEGATIVE (NEGATIVE); OPIATES, UR NEGATIVE (NEGATIVE); PHENCYCLIDINE, UR NEGATIVE (NEGATIVE)
[2018-06-13 13:29] LABS: BASO # 0.1 K/uL (0.0-0.2); BASO % 1.1 % (0.0-2.0); EOS % 0.5 % (0.0-4.0); HEMOGLOBIN 11.4 g/dL (12.0-18.0); LYMPH % 25.6 % (20.0-40.0); MEAN CORPUSCULAR HEMOGLOBIN 28.1 pg (27.0-31.0); MEAN CORPUSCULAR HGB CONC 32.6 g/dL (33.0-37.0); MEAN PLATELET VOLUME 7.1 fL (7.2-11.7); MONO # 0.4 K/uL (0.0-0.8); MONO % 5.6 % (0.0-10.0); NEUT # 5.4 K/uL (1.8-7.0); NEUT % 67.2 % (50.0-75.0); RBC 4.06 Mil/uL (4.40-5.90); RED CELL DISTRIBUTION WIDTH 17.6 % (11.5-14.5)
[2018-06-13 13:30] LABS: MEAN CELL VOLUME 86.3 fL (80.0-94.0)
[2018-06-13 13:46] LABS: ALB/GLOB RATIO 1.4 (1.0-2.1); ALBUMIN 3.7 g/dL (3.5-5.0); ALT/SGPT 53 U/L (21-72); AST/SGOT 31 U/L (17-59); BLOOD UREA NITROGEN 3 mg/dL (9-20); CALCIUM 7.8 mg/dl (8.6-10.4); GFR NON-AFRICAN AMERICAN > 60
--- NOTE | 2018-06-13 13:51 | C.PDOC ---
History Of Present Illness 42 year old male presents to the ED requesting alcohol detox. Patient was on the detox waiting list, and was being called to come in prior to presenting to the ED himself. Contrary to triage, patient denies abdominal pain at this time. He reports feeling slightly tremulous. Otherwise, he denies fever, chills, nausea and vomiting. Time Seen by Provider: 06/13/18 12:22 Chief Complaint (Nursing): Abdominal Pain History Per: Patient History/Exam Limitations: no limitations Onset/Duration Of Symptoms: Hrs Current Symptoms Are (Timing): Still Present Past Medical History Vital Signs: Last Vital Signs Temp 98.0 F 06/13/18 12:19 Pulse 107 H 06/13/18 12:19 Resp 18 06/13/18 12:19 BP 155/105 H 06/13/18 12:19 Pulse Ox 100 06/13/18 12:19 - Medical History PMH: Anxiety, Diabetes (metformin), Gastritis Denies: Depression, Hepatitis, HIV, HTN, Chronic Kidney Disease, Seizures, Sexually Transmitted Disease - [facility] Procedures CLOSURE SKIN & SUBCUTANEOUS NEC (06/04/03) DETOXIFICATION SERVICES FOR SUBSTANCE ABUSE TREATMENT (04/24/18) ESOPHAGOGASTRODUODENOSCOPY [EGD] W/CLOSED BIOPSY (11/12/14) GROUP DRAW BENCH OPERATOR FOR SUBSTANCE ABUSE TREATMENT, PSYCHOEDUCATION (04/24/18) GROUP DRAW BENCH OPERATOR FOR SUBSTANCE ABUSE, COGNITIVE BEHAVIORAL (04/24/18) GROUP PSYCHOTHERAPY (04/24/18) INDIV PSYCHOTHERAPY FOR SUBSTANCE ABUSE TREATMENT, SUPPORT (04/24/18) INDIV PSYCHOTHERAPY FOR SUBSTANCE ABUSE, COGNITIV BEHAVIORAL (04/24/18) INDIV PSYCHOTHERAPY FOR SUBSTANCE ABUSE, PSYCHOEDUCATION (04/24/18) INDIVIDUAL PSYCHOTHERAPY, COGNITIVE-BEHAVIORAL (04/24/18) INDIVIDUAL PSYCHOTHERAPY, SUPPORTIVE (04/24/18) INFLUENZA VACCINATION (02/05/13) LARYGNOSCOPY AND OTH TRACHEOSCOPY (05/02/14) PHARMACOTHERAPY FOR SUBSTANCE ABUSE, NICOTINE REPLACE (06/20/17) Family History: States: Unknown Family Hx - Social History Hx Tobacco Use: Yes Hx Alcohol Use: Yes Hx Substance Use: No - Immunization History Hx Tetanus Toxoid Vaccination: Yes Hx Influenza Vaccination: Yes (02/2018) Hx Pneumococcal Vaccination: No ED Course And Treatment - Laboratory Results Result Diagrams: 06/13/18 13:14 06/13/18 13:14 Lab Results: Total Bilirubin 0.3 mg/dL (0.2-1.3) 06/13/18 13:14 AST 31 U/L (17-59) 06/13/18 13:14 ALT 53 U/L (21-72) 06/13/18 13:14 Alkaline Phosphatase 109 U/L (38-126) 06/13/18 13:14 Total Protein 6.3 g/dL (6.3-8.3) 06/13/18 13:14 Albumin 3.7 g/dL (3.5-5.0) 06/13/18 13:14 Globulin 2.7 gm/dL (2.2-3.9) 06/13/18 13:14 Albumin/Globulin Ratio 1.4 (1.0-2.1) 06/13/18 13:14 Urine Color Yellow (YELLOW) 06/13/18 12:39 Urine Clarity Clear (Clear) 06/13/18 12:39 Urine pH 6.0 (5.0-8.0) 06/13/18 12:39 Ur Specific [place] 1.031 (1.003-1.030) H 06/13/18 12:39 Urine Protein Negative mg/dL (NEGATIVE) 06/13/18 12:39 Urine Glucose (UA) 3+ mg/dL (Normal) H 06/13/18 12:39 Urine Ketones Negative mg/dL (NEGATIVE) 06/13/18 12:39 Urine Blood Negative (NEGATIVE) 06/13/18 12:39 Urine Nitrate Negative (NEGATIVE) 06/13/18 12:39 Urine Bilirubin Negative (NEGATIVE) 06/13/18 12:39 Urine Urobilinogen Normal mg/dL (0.2-1.0) 06/13/18 12:39 Ur Leukocyte Esterase Neg Mando/uL (Negative) 06/13/18 12:39 Urine WBC (Auto) < 1 /hpf (0-5) 06/13/18 12:39 Urine RBC (Auto) < 1 /hpf (0-3) 06/13/18 12:39 O2 Sat by Pulse Oximetry: 100 (on RA ) Pulse Ox Interpretation: Normal Disposition - Disposition Forms: [facility] (Luxembourger) - Scribe Statement The provider has reviewed the documentation as recorded by the Scribe (Pat Gill) Provider Attestation: All medical record entries made by the Scribe were at my direction and personally dictated by me. I have reviewed the chart and agree that the record accurately reflects my personal performance of the history, physical exam, medical decision making, and the department course for this patient. I have also personally directed, reviewed, and agree with the discharge instructions and disposition.
--- NOTE | 2018-06-13 13:58 | C.PDOC ---
History Of Present Illness 42 year old male presents to the ED requesting alcohol detox. Patient was on the detox waiting list, and was being called to come in prior to presenting to the ED himself. Contrary to triage, patient denies abdominal pain at this time. He reports feeling slightly tremulous. Otherwise, he denies fever, chills, nausea and vomiting. Time Seen by Provider: 06/13/18 12:22 Chief Complaint (Nursing): Abdominal Pain History Per: Patient History/Exam Limitations: no limitations Onset/Duration Of Symptoms: Hrs Current Symptoms Are (Timing): Still Present Suicide/Self Injury Attempted (Context): None Modifying Factor(s): Alcohol Involuntary Hold By: None Recent travel outside of the [place]: No Additional History Per: Patient Past Medical History Reviewed: Historical Data, Nursing Documentation, Vital Signs Vital Signs: Last Vital Signs Temp 98.0 F 06/13/18 12:19 Pulse 107 H 06/13/18 12:19 Resp 18 06/13/18 12:19 BP 155/105 H 06/13/18 12:19 Pulse Ox 100 06/13/18 12:19 - Medical History PMH: Anxiety, Diabetes (metformin), Gastritis Denies: Depression, Hepatitis, HIV, HTN, Chronic Kidney Disease, Seizures, Sexually Transmitted Disease Surgical History: No Surg Hx - [facility] Procedures CLOSURE SKIN & SUBCUTANEOUS NEC (06/04/03) DETOXIFICATION SERVICES FOR SUBSTANCE ABUSE TREATMENT (04/24/18) ESOPHAGOGASTRODUODENOSCOPY [EGD] W/CLOSED BIOPSY (11/12/14) GROUP REGIONAL CONSTRUCTION MANAGER FOR SUBSTANCE ABUSE TREATMENT, PSYCHOEDUCATION (04/24/18) GROUP REGIONAL CONSTRUCTION MANAGER FOR SUBSTANCE ABUSE, COGNITIVE BEHAVIORAL (04/24/18) GROUP PSYCHOTHERAPY (04/24/18) INDIV PSYCHOTHERAPY FOR SUBSTANCE ABUSE TREATMENT, SUPPORT (04/24/18) INDIV PSYCHOTHERAPY FOR SUBSTANCE ABUSE, COGNITIV BEHAVIORAL (04/24/18) INDIV PSYCHOTHERAPY FOR SUBSTANCE ABUSE, PSYCHOEDUCATION (04/24/18) INDIVIDUAL PSYCHOTHERAPY, COGNITIVE-BEHAVIORAL (04/24/18) INDIVIDUAL PSYCHOTHERAPY, SUPPORTIVE (04/24/18) INFLUENZA VACCINATION (02/05/13) LARYGNOSCOPY AND OTH TRACHEOSCOPY (05/02/14) PHARMACOTHERAPY FOR SUBSTANCE ABUSE, NICOTINE REPLACE (06/20/17) Family History: States: Unknown Family Hx - Social History Hx Tobacco Use: Yes Hx Alcohol Use: Yes Hx Substance Use: No - Immunization History Hx Tetanus Toxoid Vaccination: Yes Hx Influenza Vaccination: Yes (02/2018) Hx Pneumococcal Vaccination: No Review Of Systems Constitutional: Negative for: Fever, Chills Gastrointestinal: Negative for: Nausea, Vomiting, Abdominal Pain Neurological: Positive for: Other (mild tremors ) Psych: Positive for: Other (alcohol detox ) Physical Exam - Physical Exam Appears: Non-toxic, No Acute Distress, Unkempt, Other (disheveled) Skin: Normal Color, Warm, Dry Head: Atraumatic, Normacephalic Eye(s): bilateral: Normal Inspection Oral Mucosa: Moist Neck: Supple Chest: Symmetrical, No Deformity, No Tenderness Cardiovascular: Rhythm Regular, No Murmur Respiratory: Normal Breath Sounds, No Rales, No Rhonchi, No Wheezing Extremity: Normal ROM, Capillary Refill (less than 2 seconds ) Neurological/Psych: Normal Speech, Normal Cognition, Other (mild fine tremor noted ) ED Course And Treatment - Laboratory Results Result Diagrams: 06/13/18 13:14 06/13/18 13:14 Lab Results: Total Bilirubin 0.3 mg/dL (0.2-1.3) 06/13/18 13:14 AST 31 U/L (17-59) 06/13/18 13:14 ALT 53 U/L (21-72) 06/13/18 13:14 Alkaline Phosphatase 109 U/L (38-126) 06/13/18 13:14 Total Protein 6.3 g/dL (6.3-8.3) 06/13/18 13:14 Albumin 3.7 g/dL (3.5-5.0) 06/13/18 13:14 Globulin 2.7 gm/dL (2.2-3.9) 06/13/18 13:14 Albumin/Globulin Ratio 1.4 (1.0-2.1) 06/13/18 13:14 Urine Color Yellow (YELLOW) 06/13/18 12:39 Urine Clarity Clear (Clear) 06/13/18 12:39 Urine pH 6.0 (5.0-8.0) 06/13/18 12:39 Ur Specific [place] 1.031 (1.003-1.030) H 06/13/18 12:39 Urine Protein Negative mg/dL (NEGATIVE) 06/13/18 12:39 Urine Glucose (UA) 3+ mg/dL (Normal) H 06/13/18 12:39 Urine Ketones Negative mg/dL (NEGATIVE) 06/13/18 12:39 Urine Blood Negative (NEGATIVE) 06/13/18 12:39 Urine Nitrate Negative (NEGATIVE) 06/13/18 12:39 Urine Bilirubin Negative (NEGATIVE) 06/13/18 12:39 Urine Urobilinogen Normal mg/dL (0.2-1.0) 06/13/18 12:39 Ur Leukocyte Esterase Neg Mando/uL (Negative) 06/13/18 12:39 Urine WBC (Auto) < 1 /hpf (0-5) 06/13/18 12:39 Urine RBC (Auto) < 1 /hpf (0-3) 06/13/18 12:39 O2 Sat by Pulse Oximetry: 100 (on RA ) Pulse Ox Interpretation: Normal Medical Decision Making Medical Decision Making: Progress: Bloodwork ordered and reviewed. Patient evaluated by casino workerKajal. Disposition - Disposition Disposition: HOSPITALIZED Disposition Time: 14:07 Condition: GUARDED Forms: [employer] (Kinyarwanda) - Clinical Impression Clinical Impression: Alcohol abuse, Alcohol withdrawal - Scribe Statement The provider has reviewed the documentation as recorded by the Scribe (Pat Gill) Provider Attestation: All medical record entries made by the Scribe were at my direction and personally dictated by me. I have reviewed the chart and agree that the record accurately reflects my personal performance of the history, physical exam, medical decision making, and the department course for this patient. I have also personally directed, reviewed, and agree with the discharge instructions and disposition. Decision To Admit - Pt Status Changed To: Hospital Disposition Of: Inpatient - Admit Certification Admit to Inpatient:: After my assessment, the patient will require hospitalization for at least two midnights. This is because of the severity of symptoms shown, intensity of services needed, and/or the medical risk in this patient being treated as an outpatient. - InPatient: Physician Admission Certification: I certify that this patient requires 2 or more midnights of care for the following reason:: Medical Detox - . Bed Request Type: Detox Admitting Physician: Gasper Harper Patient Diagnosis: Alcohol abuse, Alcohol withdrawal
--- NOTE | 2018-06-13 14:54 | PCM.BM ---
<Audie Rico - Last Filed: 06/13/18 14:52> Treatment Plan Problems - Problems identified on initial assessmt knowledge deficit:alcohol use Date Initiated: 06/13/18 Time Initiated: 14:52 Assessment reference: NA Status: Active anxiety related to substance use Date Initiated: 06/13/18 Time Initiated: 14:53 Assessment reference: NA Status: Active denial Date Initiated: 06/13/18 Time Initiated: 14:54 Assessment reference: NA Status: Active defensive coping Date Initiated: 06/13/18 Time Initiated: 14:55 Assessment reference: NA Status: Active Treatment assets and liabiliti Patient Assests: adapts well, educated, ADL independent, good support system, negotiates basic needs Patient Liabilities: substance abuse, medical problems - Milieu Protocol Maintain good personal hygiene: daily Encourage regular showers, daily Remind patient to perform daily oral care, daily Assist patient to perform ADL's Conduct patient checks and document Observation sheet: Q15 minutes Maintain personal safety: every shift Educate patient to report safety concerns to staff, every shift Monitor environment for contraband/sharps Medication safety: Monitor for expected outcome, potential side effects: every shift, Assess barriers to learning: every shift, Assess readiness for medication education: every shift <Gasper Harper - Last Filed: 06/17/18 12:24> - Diagnosis (1) Alcohol use disorder, severe, dependence Status: Acute Interventions: 06/15/18 12:24 * Assess 7x/week regarding severity of withdrawal * Educate regarding risks, benefits, side effects and alternatives of medications * Use Motivational Interviewing for abstinence * Use CBT for relapse prevention * Medication management for withdrawal symptoms * Encourage medication assisted treatment *
[2018-06-13] MEDS: Multiple Vitamins Tab PO SCH (18:14)
[2018-06-13] MEDS: Magnesium Oxide 400 mg Tab UD PO SCH (18:27)
[2018-06-13] MEDS: Calcium-Vit D 250 mg-125 Units Tab UD PO SCH (18:27)
[2018-06-14] MEDS: Magnesium Oxide 400 mg Tab UD PO SCH ×2 (09:07→17:55)
[2018-06-14] MEDS: Calcium-Vit D 250 mg-125 Units Tab UD PO SCH (09:07)
[2018-06-14] MEDS: Multiple Vitamins Tab PO SCH (09:07)
--- NOTE | 2018-06-14 09:24 | PCM.PSYCH ---
Initial Psychiatric Evaluation - Initial Psychiatric Evaluation Type of Admission: Voluntary Legal Status: Capacity Chief Complaint (in patient's own words): "I needed detox again" History of Present Illness and Precipitating Events: The patient is seen, chart reviewed and case discussed. This is a 42-year-old male, single with no child, he is homeless now but his fa and brother are in [place]. 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 The patient admits to drinking 2 to 3 pints every day for the past 2-3 years. However he first started drinking heavily 10 years ago. He smokes 1 pack per day cigarette and denies all other drugs. No history of DTs or seizures but he has severe wdw sxs He has never been to rehab but he was with us last year. He was recently discharged from [facility] b/c of a joke which was racial and "misunderstood" by a counselor. Past psych history: Denies but he now feels depressed. Family psych history: Denies Medical history: Diabetes. He was on metformin and glyp. but he stopped and just kept drinking and his sugar was high on admission again. Current Medications: Active Medications Generic Name Dose Route Start Last Admin Trade Name Freq PRN Reason Stop Dose Admin Calcium/Vitamin D 1 tab 06/13/18 17:30 06/14/18 09:07 Oscal-D 250 Mg-125 Units Tab PO 1 tab DAILY LUCILA Administration Chlordiazepoxide 25 mg 06/13/18 18:00 06/14/18 05:37 Librium PO 06/18/18 17:59 25 mg Q6 LUCILA Administration Taper Clonidine HCl 0.1 mg 06/13/18 17:25 06/14/18 05:41 Catapres PO 0.1 mg Q4H PRN Administration Symptoms of alcohol withdrawl Folic Acid 1 mg 06/13/18 17:30 06/14/18 09:07 Folic Acid PO 1 mg DAILY LUCILA Administration Gabapentin 300 mg 06/13/18 18:00 06/14/18 09:16 Neurontin PO 300 mg BID LUCILA Administration Glimepiride 4 mg 06/13/18 18:00 06/14/18 09:07 Amaryl PO 4 mg BID LUCILA Administration Hydroxyzine HCl 50 mg 06/13/18 17:23 06/14/18 09:07 Atarax PO 50 mg Q6H PRN Administration Anxiety Ibuprofen 600 mg 06/13/18 17:23 Motrin Tab PO Q6H PRN Pain, moderate (4-7) Magnesium Oxide 400 mg 06/13/18 18:00 06/14/18 09:07 Mag-Ox PO 400 mg BID LUCILA Administration Metformin HCl 1,000 mg 06/13/18 18:00 06/14/18 09:06 Glucophage PO 1,000 mg BID LUCILA Administration Mirtazapine 15 mg 06/13/18 22:00 06/13/18 21:27 Remeron PO Not Given HS LUCILA Multivitamins 1 tab 06/13/18 17:30 06/14/18 09:07 Hexavitamin PO 1 tab DAILY LUCILA Administration Nicotine 1 patch 06/14/18 10:00 06/14/18 09:06 Nicoderm Cq TD 1 patch DAILY LUCILA Administration Ondansetron HCl 4 mg 06/13/18 18:36 06/13/18 18:42 Zofran Tab PO 4 mg Q6H PRN Administration Heartburn Sitagliptin Phosphate 25 mg 06/14/18 10:00 06/14/18 09:06 Januvia PO 25 mg DAILY LUCILA Administration Thiamine HCl 100 mg 06/13/18 17:30 06/14/18 09:07 Vitamin B1 Tab PO 100 mg DAILY LUCILA Administration Trazodone HCl 100 mg 06/13/18 17:23 Desyrel PO HS PRN Insomnia Past Psychiatric History - Past Psychiatric History Previous Treatment History: Intensive Outpatient Pertinent Medical Hx (Current Medical&Sleep Prob, Allergies): Allergies Allergy/AdvReac Type Severity Reaction Status Date / Time No Known Allergies Allergy Verified 05/18/18 15:46 Clotrimazole 1% [Lotrimin AF 1%] 1 ml TOP BID bottle 06/06/18 Gabapentin [Neurontin] 400 mg PO TID #90 cap 06/06/18 Glimepiride [amaRYL] 4 mg PO BID #60 tab 06/06/18 Insulin Glargine, Recombina [Lantus] 20 unit SC HS #1 vial 06/06/18 Omeprazole 40 mg PO DAILY #30 capsule. 06/06/18 QUEtiapine [SEROquel] 200 mg PO HS #30 tab 06/06/18 busPIRone [Buspar] 10 mg PO BID #60 tab 06/06/18 metFORMIN [glucOPHAGE] 1,000 mg PO BID #60 tab 06/06/18 traZODone [Desyrel] 100 mg PO HS PRN #30 tab 06/06/18 Review of Systems - Neurological Neurological: Tremor - Psychiatric Psychiatric: Abnormal Sleep Pattern, Anhedonia, Anxiety, Difficulty Concentrating. absent: Hallucinations, Homicidal Ideation, Suicidal Ideation Mental Status Examination - Personal Presentation Personal Presentation: Looks older than stated age (unkempt) - Affect Affect: Constricted - Motor Activity Motor Activity: Calm - Reliability in Providing Information Reliability in Providing Information: Good - Speech Speech: Organized - Mood Mood: Depressed, Anxious - Formal Thought Process Formal Thought Process: No Impairment - Cognitive Functions Orientation: Person, Place, Situation, Time Sensorium: Alert Attention/Concentration: Easily distracted Estimate of Intelligence: Average Judgement: Intact, as evidence by: Insight regarding need for hospitalization Memory: Recent intact, as evidence by: Ability to recall events of the day, Remote impaired as evidenced by: Inability to recall sig life events - Risk Risk: Withdrawal, Diminished functioning - Strength & Assets Inventory Strength & Assets Inventory: Cooperative - Limitations Limitations: Other DSM 5 DX - DSM 5 DSM 5 Diagnosis: Alcohol withdrawal - uncomplicated Alcohol use d/o - severe Tobacco use d/o - severe Depressive d/o - unspecified DM HTN - Recommended/Plan of Treatment Treatment Recommendations and Plan of Treatment: Librium detox As needed medications Remeron for depression Gabapentin for augmentation Attend groups and activities Supportive therapy and psychoeducation NC for abstinence CBT for relapse prevention Encourage MAT Refer to rehab or IOP Attend self-help groups as well Resume DM meds and FS coverage Check accucheck Consult if needed 35 min Projected ELOS: 5 days Prognosis: good w treatment - Smoking Cessation Smoking Cessation Initiated: Yes
[2018-06-14] MEDS: Aluminum Hydroxide/Magnesium Hydroxide Susp (30 mL) PO PRN (18:16)
[2018-06-14] MEDS ORDERED: DiphenhydrAMINE 50 mg/ml Inj IM PRN (18:22)
[2018-06-15] MEDS: Multiple Vitamins Tab PO SCH (11:10)
[2018-06-15] MEDS: Magnesium Oxide 400 mg Tab UD PO SCH ×2 (11:10→17:20)
[2018-06-15] MEDS: Calcium-Vit D 250 mg-125 Units Tab UD PO SCH (11:11)
--- NOTE | 2018-06-15 15:22 | OP ---
PROCEDURE DATE: 06/15/2018 PREOPERATIVE DIAGNOSIS: Dysphagia. POSTOPERATIVE DIAGNOSIS: Dysphagia. PROCEDURE: Flexible laryngoscopy. SURGEON: Saurabh Mack MD SIGNIFICANT FINDINGS: Papillomatous lesion noted on the right posterior vocal cord. DESCRIPTION OF PROCEDURE: The patient was placed in seated position. Base of nose was decongested using Afrin. Flexible laryngoscope was inserted into the left nasal cavity and passed through nasopharynx, oropharynx, and hypopharynx. The pharyngeal canales, base of tongue, vallecula, epiglottis, AE folds, false cords, true cords, piriform sinuses were brought into view. No masses or lesions were noted except for lesions on the right posterior vocal cord. Vocal cords were noted to be mobile bilaterally. The scope was removed. The patient tolerated the procedure well. Saurabh Mack MD
[2018-06-15] MEDS: Aluminum Hydroxide/Magnesium Hydroxide Susp (30 mL) PO PRN (15:48)
--- NOTE | 2018-06-15 21:19 | CP.PCM.CON ---
Past Patient History - Infectious Disease Hx of Infectious Diseases: None - Tetanus Immunizations Tetanus Immunization: Unknown - Past Medical History & Family History Past Medical History?: Yes - Past Social History Smoking Status: Heavy Smoker > 10 Cigarettes Daily - CARDIAC Hx Hypertension: No - PULMONARY Hx Tuberculosis: No Other/Comment: Currently smokes 2 ppd - NEUROLOGICAL Hx Seizures: No - HEENT Hx HEENT Problems: No - RENAL Hx Chronic Kidney Disease: No - ENDOCRINE/METABOLIC Hx Endocrine Disorders: Yes Hx Diabetes Mellitus Type 2: Yes - HEMATOLOGICAL/ONCOLOGICAL Hx Human Immunodeficiency Virus (HIV): No - INTEGUMENTARY Hx Dermatological Problems: No - MUSCULOSKELETAL/RHEUMATOLOGICAL Hx Back Pain: Yes Hx Falls: Yes - GASTROINTESTINAL Hx Gastritis: Yes Hx Gastroesophageal Reflux: Yes Hx Pancreatitis: Yes HX Swallowing Problems: Yes - GENITOURINARY/GYNECOLOGICAL Hx Sexually Transmitted Disorders: No - PSYCHIATRIC Hx Substance Use: Yes - SURGICAL HISTORY Hx Surgeries: No - ANESTHESIA Hx Anesthesia: No Meds Allergies/Adverse Reactions: Allergies Allergy/AdvReac Type Severity Reaction Status Date / Time No Known Allergies Allergy Verified 05/18/18 15:46 - Medications Medications: Current Medications Al Hydrox/Mg Hydrox/Simethicone (Maalox 30 Ml) 30 ml PO Q6H PRN PRN Reason: Indigestion / Heartburn Last Admin: 06/15/18 15:48 Dose: 30 ml Calcium/Vitamin D (Oscal-D 250 Mg-125 Units Tab) 1 tab PO DAILY [facility] Last Admin: 06/15/18 11:11 Dose: Not Given Chlordiazepoxide (Librium) 25 mg PO Q8H [facility]; Taper Stop: 06/18/18 17:59 Last Admin: 06/15/18 17:20 Dose: 25 mg Clonidine HCl (Catapres) 0.1 mg PO Q4H PRN PRN Reason: Symptoms of alcohol withdrawl Last Admin: 06/15/18 04:51 Dose: 0.1 mg Cyclobenzaprine HCl (Flexeril) 5 mg PO TIDAC [facility] Last Admin: 06/15/18 17:20 Dose: 5 mg Diphenhydramine HCl (Benadryl) 25 mg IM Q6H PRN PRN Reason: Allergy symptoms Folic Acid (Folic Acid) 1 mg PO DAILY [facility] Last Admin: 06/15/18 09:43 Dose: 1 mg Gabapentin (Neurontin) 300 mg PO BID [facility] Last Admin: 06/15/18 17:20 Dose: 300 mg Glimepiride (Amaryl) 4 mg PO BID [facility] Last Admin: 06/15/18 17:21 Dose: 4 mg Hydroxyzine HCl (Atarax) 50 mg PO Q6H PRN PRN Reason: Anxiety Last Admin: 06/15/18 07:15 Dose: 50 mg Ibuprofen (Motrin Tab) 600 mg PO Q6H PRN PRN Reason: Pain, moderate (4-7) Magnesium Oxide (Mag-Ox) 400 mg PO BID [facility] Last Admin: 06/15/18 17:20 Dose: 400 mg Metformin HCl (Glucophage) 1,000 mg PO BID [facility] Last Admin: 06/15/18 17:24 Dose: Not Given Mirtazapine (Remeron) 15 mg PO HS [facility] Last Admin: 06/14/18 21:46 Dose: 15 mg Multivitamins (Hexavitamin) 1 tab PO DAILY [facility] Last Admin: 06/15/18 11:10 Dose: Not Given Nicotine (Nicoderm Cq) 1 patch TD DAILY [facility] Last Admin: 06/15/18 09:45 Dose: 1 patch Ondansetron HCl (Zofran Tab) 4 mg PO Q6H PRN PRN Reason: Heartburn Last Admin: 06/15/18 04:51 Dose: 4 mg Sitagliptin Phosphate (Januvia) 25 mg PO DAILY [facility] Last Admin: 06/15/18 11:10 Dose: Not Given Thiamine HCl (Vitamin B1 Tab) 100 mg PO DAILY [facility] Last Admin: 06/15/18 11:11 Dose: Not Given Trazodone HCl (Desyrel) 100 mg PO HS PRN PRN Reason: Insomnia Last Admin: 06/14/18 21:46 Dose: 100 mg Physical Exam - Constitutional Appears: Well - Head Exam Head Exam: ATRAUMATIC, NORMAL INSPECTION, NORMOCEPHALIC - Eye Exam Eye Exam: EOMI, Normal appearance, PERRL Pupil Exam: NORMAL ACCOMODATION, PERRL - ENT Exam ENT Exam: Mucous Membranes Moist, Normal Exam - Neck Exam Neck exam: Positive for: Normal Inspection - Respiratory Exam Respiratory Exam: Decreased Breath Sounds - Cardiovascular Exam Cardiovascular Exam: REGULAR RHYTHM, +S1, +S2 - GI/Abdominal Exam GI & Abdominal Exam: Diminished Bowel Sounds, Soft - Rectal Exam Rectal Exam: Deferred Results - Vital Signs Recent Vital Signs: Last Vital Signs Temp 97.6 F 06/15/18 16:57 Pulse 98 H 06/15/18 16:57 Resp 18 06/15/18 16:57 BP 101/74 06/15/18 16:57 Pulse Ox 98 06/15/18 16:57 - Labs Result Diagrams: 06/13/18 13:14 06/13/18 13:14 Labs: Laboratory Results - last 24 hr 06/15/18 07:29 POC Glucose (mg/dL) 192 H
--- NOTE | 2018-06-16 01:16 | PCM.PYCHPN ---
Psychiatric Progress Note - Psychiatric Progress Note Patient seen today, length of contact: 16 min Patient Chief Complaint: "I needed detox again" Problems Identified/Issues Discussed: The pt is seen, chart reviewed, case discussed with staff. Support and psychoeducation given, CBT and CA used briefly No new symptoms reported, improving slowly and needs more time Swallowing problem continues - addressed No SEs from medications, risks discussed. After care discussed Medication Change: Yes (detox changes daily) Medical Record Reviewed: Yes Mental Status Examination - Cognitive Function Orientation: Person, Place, Situation, Time Memory: Intact Attention: WNL Concentration: Poor Association: WNL Fund of Knowledge: WNL - Mood Mood: Depressed, Anxious - Affect Affect: Constricted - Formal Thought Process Formal Thought Process: No Impairment - Suicidal Ideation Suicidal Ideation: No - Homicidal Ideation Homicidal Ideation: No Goal/Treatment Plan - Goal/Treatment Plan Need for Continued Stay: Discharge may exacerbated symptoms, Severe functional impairment Progress Toward Problem(s) and Goals/Treatment Plan: Librium detox As needed medications Remeron for depression Gabapentin for augmentation Attend groups and activities Supportive therapy and psychoeducation CA for abstinence CBT for relapse prevention Encourage MAT Refer to rehab or IOP Attend self-help groups as well Resume DM meds and FS coverage Check accucheck Consult for swallow and GI
[2018-06-16] MEDS: Multiple Vitamins Tab PO SCH (10:15)
[2018-06-16] MEDS: Calcium-Vit D 250 mg-125 Units Tab UD PO SCH (10:16)
[2018-06-16] MEDS: Magnesium Oxide 400 mg Tab UD PO SCH ×2 (10:16→17:05)
--- NOTE | 2018-06-16 15:00 | CP.PCM.PN ---
Subjective - Date & Time of Evaluation Date of Evaluation: 06/16/18 Time of Evaluation: 11:45 - Subjective Subjective: clinically same Objective - Vital Signs/Intake and Output Vital Signs (last 24 hours): Temp Pulse Resp BP Pulse Ox 97.7 F 108 H 18 99/75 L 100 06/16/18 13:50 06/16/18 13:50 06/16/18 13:10 06/16/18 13:10 06/16/18 13:10 - Medications Medications: Current Medications Al Hydrox/Mg Hydrox/Simethicone (Maalox 30 Ml) 30 ml PO Q6H PRN PRN Reason: Indigestion / Heartburn Last Admin: 06/15/18 15:48 Dose: 30 ml Calcium/Vitamin D (Oscal-D 250 Mg-125 Units Tab) 1 tab PO DAILY [facility] Last Admin: 06/16/18 10:16 Dose: Not Given Chlordiazepoxide (Librium) 25 mg PO Q8H [facility]; Taper Stop: 06/18/18 17:59 Last Admin: 06/16/18 10:13 Dose: 25 mg Clonidine HCl (Catapres) 0.1 mg PO Q4H PRN PRN Reason: Symptoms of alcohol withdrawl Last Admin: 06/15/18 04:51 Dose: 0.1 mg Cyclobenzaprine HCl (Flexeril) 5 mg PO TIDAC [facility] Last Admin: 06/16/18 11:31 Dose: 5 mg Diphenhydramine HCl (Benadryl) 25 mg IM Q6H PRN PRN Reason: Allergy symptoms Folic Acid (Folic Acid) 1 mg PO DAILY [facility] Last Admin: 06/16/18 10:14 Dose: Not Given Gabapentin (Neurontin) 300 mg PO BID [facility] Last Admin: 06/16/18 10:16 Dose: Not Given Glimepiride (Amaryl) 4 mg PO BID [facility] Last Admin: 06/16/18 10:14 Dose: Not Given Hydroxyzine HCl (Atarax) 50 mg PO Q6H PRN PRN Reason: Anxiety Last Admin: 06/15/18 21:24 Dose: 50 mg Ibuprofen (Motrin Tab) 600 mg PO Q6H PRN PRN Reason: Pain, moderate (4-7) Magnesium Oxide (Mag-Ox) 400 mg PO BID [facility] Last Admin: 06/16/18 10:16 Dose: Not Given Metformin HCl (Glucophage) 1,000 mg PO BID [facility] Last Admin: 06/16/18 10:15 Dose: Not Given Mirtazapine (Remeron) 15 mg PO HS [facility] Last Admin: 06/15/18 21:24 Dose: 15 mg Multivitamins (Hexavitamin) 1 tab PO DAILY [facility] Last Admin: 06/16/18 10:15 Dose: Not Given Nicotine (Nicoderm Cq) 1 patch TD DAILY [facility] Last Admin: 06/16/18 10:16 Dose: Not Given Ondansetron HCl (Zofran Tab) 4 mg PO Q6H PRN PRN Reason: Heartburn Last Admin: 06/15/18 04:51 Dose: 4 mg Sitagliptin Phosphate (Januvia) 25 mg PO DAILY [facility] Last Admin: 06/16/18 10:15 Dose: Not Given Thiamine HCl (Vitamin B1 Tab) 100 mg PO DAILY [facility] Last Admin: 06/16/18 10:17 Dose: Not Given Trazodone HCl (Desyrel) 100 mg PO HS PRN PRN Reason: Insomnia Last Admin: 06/14/18 21:46 Dose: 100 mg - Labs Labs: 06/13/18 13:14 06/13/18 13:14 - Constitutional Appears: Well - Head Exam Head Exam: ATRAUMATIC, NORMAL INSPECTION, NORMOCEPHALIC - Eye Exam Eye Exam: EOMI, Normal appearance, PERRL Pupil Exam: NORMAL ACCOMODATION, PERRL - ENT Exam ENT Exam: Mucous Membranes Moist, Normal Exam - Neck Exam Neck Exam: Full ROM, Normal Inspection. absent: Lymphadenopathy - Respiratory Exam Respiratory Exam: Decreased Breath Sounds - Cardiovascular Exam Cardiovascular Exam: REGULAR RHYTHM, +S1, +S2 - GI/Abdominal Exam GI & Abdominal Exam: Soft, Diminished Bowel Sounds - Rectal Exam Rectal Exam: Deferred Assessment and Plan (1) Alcohol abuse Status: Acute (2) Alcohol withdrawal Status: Acute (3) Airway compromise Status: Acute (4) Alcohol intoxication Status: Acute (5) Alcohol use disorder, severe, dependence Status: Acute (6) Alcoholic pancreatitis Status: Acute (7) Colitis Status: Acute (8) DKA (diabetic ketoacidoses) Status: Acute (9) Dehydration Status: Acute (10) Esophagitis Status: Acute (11) Hyperglycemia Status: Acute (12) Hypokalemia Status: Acute (13) Hyponatremia Status: Acute (14) Seizure Status: Acute (15) Throat pain in adult Status: Acute (16) Upper gastrointestinal hemorrhage Status: Acute (17) Vomiting Status: Acute (18) Intussusception of jejunum Status: Resolved - Assessment and Plan (Free Text) Plan: meds reviewed. labs reviewed. rosemary meds and management as ordered. follow up with qm consultant recommendations. monitor labs. diet as tolerated per orders. Patient is transferred from the psych floor to the medical floor Continue Benadryl Status post ENT Status post psych Continue metformin IV fluid Zofran GI consult
[2018-06-16 20:01] LABS: BASO # 0.1 K/uL (0.0-0.2); EOS # 0.1 K/uL (0.0-0.7); EOS % 0.9 % (0.0-4.0); LYMPH # 2.9 K/uL (1.0-4.3); MEAN PLATELET VOLUME 7.3 fL (7.2-11.7)
[2018-06-16 20:11] LABS: LYMPH % 33.7 % (20.0-40.0); MEAN CELL VOLUME 87.6 fL (80.0-94.0); MEAN CORPUSCULAR HEMOGLOBIN 28.7 pg (27.0-31.0); MEAN CORPUSCULAR HGB CONC 32.8 g/dL (33.0-37.0); MONO # 0.5 K/uL (0.0-0.8); MONO % 6.1 % (0.0-10.0); NEUT # 4.9 K/uL (1.8-7.0); NEUT % 58.3 % (50.0-75.0); RBC 5.1 Mil/uL (4.40-5.90); RED CELL DISTRIBUTION WIDTH 18.2 % (11.5-14.5); WHITE BLOOD COUNT 8.5 K/uL (4.8-10.8)
[2018-06-16 20:15] LABS: HEMOGLOBIN 14.6 g/dL (12.0-18.0)
[2018-06-16 20:23] LABS: INR 1.1; PROTHROMBIN TIME 11.6 SECONDS (9.7-12.2)
[2018-06-16] MEDS: Dextrose 5%/0.45% NS 1,000 ML IV SCH (20:25)
[2018-06-16 20:28] LABS: ALB/GLOB RATIO 1.2 (1.0-2.1); ALBUMIN 4.6 g/dL (3.5-5.0); ALT/SGPT 35 U/L (21-72); AST/SGOT 22 U/L (17-59); BLOOD UREA NITROGEN 23 mg/dL (9-20); CALCIUM 9.8 mg/dl (8.6-10.4); GFR NON-AFRICAN AMERICAN > 60
[2018-06-16] MEDS: (Novolog) Insulin Aspart, Recombinant 100 u/ml 10 ml vial SC SCH (21:45)
[2018-06-16] MEDS ORDERED: DiphenhydrAMINE 50 mg/ml Inj IVP STA (22:26)
[2018-06-17] MEDS: (Novolog) Insulin Aspart, Recombinant 100 u/ml 10 ml vial SC SCH ×5 (03:21→22:04)
--- NOTE | 2018-06-17 07:08 | CP.PCM.CON ---
<Alex Ozuna - Last Filed: 06/17/18 07:49> History of Present Illness - History of Present Illness History of Present Illness: PGY6 GI Fellow Adamaris Note Patient is a 42yo male with PMHx significant for alcohol-induced pancreatitis, type 2 DM, HTN, PUD, polysubstance abuse (EtOH/cocaine/her oin/benzodiazepines/tobacco) who presented to the hospital for alcohol detox. During his inpatient stay, he began to complain to staff about progressively worsening dysphagia and odynophagia to both liquids and solids. Patient admits to intermittent episodes of dysphagia for over a year, but notes more persistent and worsening symptoms since the end of May (2-3 weeks). At this time, he admits to regurgitation of any liquids or solid food within 30 minutes of intake. In the last week he has had more trouble tolerating his oral secretions, frequently spitting large amounts of saliva. Admits to daily nausea and episodes of emesis. Notes 10-20lb weight loss in the last two months. Denies any change in bowel habits, fever, chills, hematochezia/melena/hematemesis. Prior imaging in April 2018 did note possible inflammation vs narrowing in the proximal esophagus with air-fluid levels noted. Patient has been nonadherent with outpatient follow up and medical therapies as advised. Currently, he admits to being homeless and thus has not taken any prescribed or OTC medications. 12 system ROS performed and negative except where stated PMHx: See HPI PSHx: Discussed with patient and he denies any surgical history FHx: Discussed with patient and he denies any significant family history Social: Admits to daily EtOH abuse, recent illicit substance abuse, + daily tobacco use 1/2ppd x 30 years Endo: 04/18 EGD mild gastritis, severe ulcerative esophagitis 11/17 EGD Esophageal ulceration, Grade 1 esophageal varices, multiple gastric ulcers, hiatal hernia Past Patient History - Infectious Disease Hx of Infectious Diseases: None - Tetanus Immunizations Tetanus Immunization: Unknown - Past Medical History & Family History Past Medical History?: Yes - Past Social History Smoking Status: Light Smoker < 10 Cigarettes Daily - CARDIAC Hx Hypertension: No - PULMONARY Hx Tuberculosis: No Other/Comment: Currently smokes 2 ppd - NEUROLOGICAL Hx Seizures: No - HEENT Hx HEENT Problems: No - RENAL Hx Chronic Kidney Disease: No - ENDOCRINE/METABOLIC Hx Diabetes Mellitus Type 2: Yes - HEMATOLOGICAL/ONCOLOGICAL Hx Human Immunodeficiency Virus (HIV): No - INTEGUMENTARY Hx Dermatological Problems: No - MUSCULOSKELETAL/RHEUMATOLOGICAL Hx Back Pain: Yes Hx Falls: Yes - GASTROINTESTINAL Hx Gastritis: Yes Hx Gastroesophageal Reflux: Yes Hx Pancreatitis: Yes HX Swallowing Problems: Yes - GENITOURINARY/GYNECOLOGICAL Hx Sexually Transmitted Disorders: No - PSYCHIATRIC Hx Substance Use: Yes - SURGICAL HISTORY Hx Surgeries: No - ANESTHESIA Hx Anesthesia: No Meds Allergies/Adverse Reactions: Allergies Allergy/AdvReac Type Severity Reaction Status Date / Time No Known Allergies Allergy Verified 05/18/18 15:46 - Medications Medications: Current Medications Al Hydrox/Mg Hydrox/Simethicone (Maalox 30 Ml) 30 ml PO Q6H PRN PRN Reason: Indigestion / Heartburn Last Admin: 06/15/18 15:48 Dose: 30 ml Calcium/Vitamin D (Oscal-D 250 Mg-125 Units Tab) 1 tab PO DAILY [facility] Last Admin: 06/16/18 10:16 Dose: Not Given Chlordiazepoxide (Librium) 25 mg PO Q12H [facility]; Taper Stop: 06/18/18 17:59 Last Admin: 06/17/18 06:00 Dose: Not Given Clonidine HCl (Catapres) 0.1 mg PO Q4H PRN PRN Reason: Symptoms of alcohol withdrawl Last Admin: 06/15/18 04:51 Dose: 0.1 mg Cyclobenzaprine HCl (Flexeril) 5 mg PO TIDAC [facility] Last Admin: 06/16/18 15:31 Dose: Not Given Diphenhydramine HCl (Benadryl) 25 mg IM Q6H PRN PRN Reason: Allergy symptoms Folic Acid (Folic Acid) 1 mg PO DAILY [facility] Last Admin: 06/16/18 10:14 Dose: Not Given Gabapentin (Neurontin) 300 mg PO BID [facility] Last Admin: 06/16/18 17:05 Dose: Not Given Glimepiride (Amaryl) 4 mg PO BID [facility] Last Admin: 06/16/18 17:06 Dose: Not Given Hydroxyzine HCl (Atarax) 50 mg PO Q6H PRN PRN Reason: Anxiety Last Admin: 06/15/18 21:24 Dose: 50 mg Dextrose/Sodium Chloride (Dextrose 5%/0.45% Ns 1000 Ml) 1,000 mls @ 75 mls/hr IV .[id number] [facility] Last Admin: 06/16/18 20:25 Dose: 75 mls/hr Ibuprofen (Motrin Tab) 600 mg PO Q6H PRN PRN Reason: Pain, moderate (4-7) Influenza Virus Vaccine (Flucelvax Quad 2264-8448 Syr) 60 mcg IM .ONCE ONE Stop: 06/18/18 10:01 Insulin Aspart (Novolog) 0 unit SC Q6H [facility]; Protocol Last Admin: 06/17/18 03:21 Dose: Not Given Magnesium Oxide (Mag-Ox) 400 mg PO BID [facility] Last Admin: 06/16/18 17:05 Dose: Not Given Metformin HCl (Glucophage) 1,000 mg PO BID [facility] Last Admin: 06/16/18 17:04 Dose: Not Given Mirtazapine (Remeron) 15 mg PO HS [facility] Last Admin: 06/15/18 21:24 Dose: 15 mg Multivitamins (Hexavitamin) 1 tab PO DAILY [facility] Last Admin: 06/16/18 10:15 Dose: Not Given Nicotine (Nicoderm Cq) 1 patch TD DAILY [facility] Last Admin: 06/16/18 10:16 Dose: Not Given Ondansetron HCl (Zofran Inj) 4 mg IVP Q8 PRN PRN Reason: Nausea/Vomiting Last Admin: 06/16/18 20:22 Dose: 4 mg Pneumococcal Polyvalent Vaccine (Pneumovax 23 Vaccine) 0.5 ml IM .ONCE ONE Stop: 06/18/18 10:01 Sitagliptin Phosphate (Januvia) 25 mg PO DAILY [facility] Last Admin: 06/16/18 10:15 Dose: Not Given Thiamine HCl (Vitamin B1 Tab) 100 mg PO DAILY [facility] Last Admin: 06/16/18 10:17 Dose: Not Given Trazodone HCl (Desyrel) 100 mg PO HS PRN PRN Reason: Insomnia Last Admin: 06/14/18 21:46 Dose: 100 mg Physical Exam - Constitutional Appears: Non-toxic, No Acute Distress Additional comments: thin - Eye Exam Eye Exam: EOMI, PERRL - ENT Exam ENT Exam: Mucous Membranes Moist - Respiratory Exam Respiratory Exam: Clear to Auscultation Bilateral. absent: Rales, Rhonchi, Wheezes - Cardiovascular Exam Cardiovascular Exam: Tachycardia, REGULAR RHYTHM, +S1, +S2 - GI/Abdominal Exam GI & Abdominal Exam: Normal Bowel Sounds, Soft. absent: Distended, Firm, Guarding, Organomegaly, Rigid, Tenderness - Extremities Exam Extremities exam: Positive for: normal inspection. Negative for: pedal edema Additional comments: excoriations on lower legs B/L - Neurological Exam Neurological exam: Alert, Oriented x3 - Psychiatric Exam Psychiatric exam: Anxious, Normal Affect - Skin Skin Exam: Dry, Warm Results - Vital Signs Recent Vital Signs: Last Vital Signs Temp 297.7 F H 06/17/18 07:00 Pulse 83 06/17/18 07:00 Resp 20 06/17/18 07:00 BP 136/86 06/17/18 07:00 Pulse Ox 97 06/17/18 00:00 - Labs Result Diagrams: 06/16/18 19:57 06/16/18 19:57 Labs: Laboratory Results - last 24 hr 06/16/18 06/16/18 06/16/18 08:04 19:57 19:57 WBC 8.5 RBC 5.10 Hgb 14.6 D Hct 44.6 MCV 87.6 MCH 28.7 MCHC 32.8 L RDW 18.2 H Plt Count 618 H MPV 7.3 Neut % (Auto) 58.3 Lymph % (Auto) 33.7 [place] % (Auto) 6.1 Eos % (Auto) 0.9 Baso % (Auto) 1.0 Neut # (Auto) 4.9 Lymph # (Auto) 2.9 [place] # (Auto) 0.5 Eos # (Auto) 0.1 Baso # (Auto) 0.1 PT 11.6 INR 1.1 Sodium Potassium Chloride Carbon Dioxide Anion Gap BUN Creatinine Est GFR ( Amer) Est GFR (Non-Af Amer) POC Glucose (mg/dL) 180 H Random Glucose Calcium Phosphorus Magnesium Total Bilirubin AST ALT Alkaline Phosphatase Total Protein Albumin Globulin Albumin/Globulin Ratio 06/16/18 06/16/18 06/17/18 19:57 21:10 03:16 WBC RBC Hgb Hct MCV MCH MCHC RDW Plt Count MPV Neut % (Auto) Lymph % (Auto) [place] % (Auto) Eos % (Auto) Baso % (Auto) Neut # (Auto) Lymph # (Auto) [place] # (Auto) Eos # (Auto) Baso # (Auto) PT INR Sodium 142 Potassium 3.8 Chloride 100 Carbon Dioxide 25 Anion Gap 21 H BUN 23 H Creatinine 0.9 Est GFR ( Amer) > 60 Est GFR (Non-Af Amer) > 60 POC Glucose (mg/dL) 211 H 238 H Random Glucose 203 H D Calcium 9.8 Phosphorus 5.2 H Magnesium 2.1 Total Bilirubin 0.5 AST 22 ALT 35 Alkaline Phosphatase 145 H D Total Protein 8.5 H Albumin 4.6 Globulin 3.9 Albumin/Globulin Ratio 1.2 Assessment & Plan - Assessment and Plan (Free Text) Assessment: Patient is a 42yo male with PMHx significant for alcohol-induced pancreatitis, type 2 DM, HTN, PUD, polysubstance abuse (EtOH /cocaine/heroin/benzodiazepines/tobacco) who presented to the hospital for alcohol detox -Dysphagia -Odynophagia -Abnormal CT imaging of the esophagus -Unintentional weight loss -Polysubstance abuse Plan: -CT neck from April 2018 reviewed - evidence of proximal airway narrowing -Patient made NPO past midnight last night -Plan for EGD this morning; R/O malignant obstruction, recurrent esophagitis, infectious etiologies, EoE - rumination syndrome or motility disorder in differential as well -Plan per findings -Agree with IV hydration given orthostasis -Smoking/EtOH/illicit substance cessation stressed -Lab work reviewed - Date & Time Date: 06/17/18 Time: 07:00 <Smith Jasso - Last Filed: 06/17/18 08:13> Meds - Medications Medications: Current Medications Al Hydrox/Mg Hydrox/Simethicone (Maalox 30 Ml) 30 ml PO Q6H PRN PRN Reason: Indigestion / Heartburn Last Admin: 06/15/18 15:48 Dose: 30 ml Calcium/Vitamin D (Oscal-D 250 Mg-125 Units Tab) 1 tab PO DAILY [facility] Last Admin: 06/16/18 10:16 Dose: Not Given Chlordiazepoxide (Librium) 25 mg PO Q12H [facility]; Taper Stop: 06/18/18 17:59 Last Admin: 06/17/18 06:00 Dose: Not Given Clonidine HCl (Catapres) 0.1 mg PO Q4H PRN PRN Reason: Symptoms of alcohol withdrawl Last Admin: 06/15/18 04:51 Dose: 0.1 mg Cyclobenzaprine HCl (Flexeril) 5 mg PO TIDAC [facility] Last Admin: 06/16/18 15:31 Dose: Not Given Diphenhydramine HCl (Benadryl) 25 mg IM Q6H PRN PRN Reason: Allergy symptoms Folic Acid (Folic Acid) 1 mg PO DAILY [facility] Last Admin: 06/16/18 10:14 Dose: Not Given Gabapentin (Neurontin) 300 mg PO BID [facility] Last Admin: 06/16/18 17:05 Dose: Not Given Glimepiride (Amaryl) 4 mg PO BID [facility] Last Admin: 06/16/18 17:06 Dose: Not Given Hydroxyzine HCl (Atarax) 50 mg PO Q6H PRN PRN Reason: Anxiety Last Admin: 06/15/18 21:24 Dose: 50 mg Dextrose/Sodium Chloride (Dextrose 5%/0.45% Ns 1000 Ml) 1,000 mls @ 75 mls/hr IV .[id number] [facility] Last Admin: 06/16/18 20:25 Dose: 75 mls/hr Ibuprofen (Motrin Tab) 600 mg PO Q6H PRN PRN Reason: Pain, moderate (4-7) Influenza Virus Vaccine (Flucelvax Quad 7946-2374 Syr) 60 mcg IM .ONCE ONE Stop: 06/18/18 10:01 Insulin Aspart (Novolog) 0 unit SC Q6H [facility]; Protocol Last Admin: 06/17/18 03:21 Dose: Not Given Magnesium Oxide (Mag-Ox) 400 mg PO BID [facility] Last Admin: 06/16/18 17:05 Dose: Not Given Metformin HCl (Glucophage) 1,000 mg PO BID [facility] Last Admin: 06/16/18 17:04 Dose: Not Given Mirtazapine (Remeron) 15 mg PO HS [facility] Last Admin: 06/15/18 21:24 Dose: 15 mg Multivitamins (Hexavitamin) 1 tab PO DAILY [facility] Last Admin: 06/16/18 10:15 Dose: Not Given Nicotine (Nicoderm Cq) 1 patch TD DAILY [facility] Last Admin: 06/16/18 10:16 Dose: Not Given Ondansetron HCl (Zofran Inj) 4 mg IVP Q8 PRN PRN Reason: Nausea/Vomiting Last Admin: 06/16/18 20:22 Dose: 4 mg Pneumococcal Polyvalent Vaccine (Pneumovax 23 Vaccine) 0.5 ml IM .ONCE ONE Stop: 06/18/18 10:01 Sitagliptin Phosphate (Januvia) 25 mg PO DAILY [facility] Last Admin: 06/16/18 10:15 Dose: Not Given Thiamine HCl (Vitamin B1 Tab) 100 mg PO DAILY [facility] Last Admin: 06/16/18 10:17 Dose: Not Given Trazodone HCl (Desyrel) 100 mg PO HS PRN PRN Reason: Insomnia Last Admin: 06/14/18 21:46 Dose: 100 mg Results - Vital Signs Recent Vital Signs: Last Vital Signs Temp 297.7 F H 06/17/18 07:47 Pulse 83 06/17/18 07:47 Resp 20 06/17/18 07:47 BP 136/86 06/17/18 07:47 Pulse Ox 97 06/17/18 07:47 - Labs Result Diagrams: 06/16/18 19:57 06/16/18 19:57 Labs: Laboratory Results - last 24 hr 06/16/18 06/16/18 06/16/18 08:04 19:57 19:57 WBC 8.5 RBC 5.10 Hgb 14.6 D Hct 44.6 MCV 87.6 MCH 28.7 MCHC 32.8 L RDW 18.2 H Plt Count 618 H MPV 7.3 Neut % (Auto) 58.3 Lymph % (Auto) 33.7 [place] % (Auto) 6.1 Eos % (Auto) 0.9 Baso % (Auto) 1.0 Neut # (Auto) 4.9 Lymph # (Auto) 2.9 [place] # (Auto) 0.5 Eos # (Auto) 0.1 Baso # (Auto) 0.1 PT 11.6 INR 1.1 Sodium Potassium Chloride Carbon Dioxide Anion Gap BUN Creatinine Est GFR ( Amer) Est GFR (Non-Af Amer) POC Glucose (mg/dL) 180 H Random Glucose Calcium Phosphorus Magnesium Total Bilirubin AST ALT Alkaline Phosphatase Total Protein Albumin Globulin Albumin/Globulin Ratio 06/16/18 06/16/18 06/17/18 19:57 21:10 03:16 WBC RBC Hgb Hct MCV MCH MCHC RDW Plt Count MPV Neut % (Auto) Lymph % (Auto) [place] % (Auto) Eos % (Auto) Baso % (Auto) Neut # (Auto) Lymph # (Auto) [place] # (Auto) Eos # (Auto) Baso # (Auto) PT INR Sodium 142 Potassium 3.8 Chloride 100 Carbon Dioxide 25 Anion Gap 21 H BUN 23 H Creatinine 0.9 Est GFR ( Amer) > 60 Est GFR (Non-Af Amer) > 60 POC Glucose (mg/dL) 211 H 238 H Random Glucose 203 H D Calcium 9.8 Phosphorus 5.2 H Magnesium 2.1 Total Bilirubin 0.5 AST 22 ALT 35 Alkaline Phosphatase 145 H D Total Protein 8.5 H Albumin 4.6 Globulin 3.9 Albumin/Globulin Ratio 1.2 06/17/18 06:46 WBC RBC Hgb Hct MCV MCH MCHC RDW Plt Count MPV Neut % (Auto) Lymph % (Auto) [place] % (Auto) Eos % (Auto) Baso % (Auto) Neut # (Auto) Lymph # (Auto) [place] # (Auto) Eos # (Auto) Baso # (Auto) PT INR Sodium Potassium Chloride Carbon Dioxide Anion Gap BUN Creatinine Est GFR ( Amer) Est GFR (Non-Af Amer) POC Glucose (mg/dL) 203 H Random Glucose Calcium Phosphorus Magnesium Total Bilirubin AST ALT Alkaline Phosphatase Total Protein Albumin Globulin Albumin/Globulin Ratio Attending/Attestation - Attestation I have personally seen and examined this patient.: Yes I have fully participated in the care of the patient.: Yes I have reviewed all pertinent clinical information: Yes Notes (Text): 06/17/18 08:08 I have seen and examined patient with GI fellow. Agree with above documentation with the following additions. In brief, this is a 42 year old male with history of polysubstance abuse, DM, HTN, PUD, who presents to hospital for ETOH detoxification. GI called for evaluation of progressive dysphagia. He reports chronic dysphagia to both solids and liquids over the past one year which has gotten worse over the past 2-3 weeks. He reports ongoing nausea with emesis f ollowing attempted meal consumption. Additionally, he reports a weight loss of nearly 20 pounds over the past few months. He had an EGD in 2014 which showed multiple esophageal ulcers, grade I varices. Polysubstance abuse DM HTN PUD Dysphagia, weight loss CT imaging reviewed by me showing air/fluid level in esophagus suggestive of obstructive pathology - NPO - Continue with IV PPI therapy - Continue with IVF hydration, supportive care - Plan for EGD today for further evaluation of progressive dysphagia, weight loss in order to rule out underlying malignancy
[2018-06-17] MEDS ORDERED: Propofol 10 mg/ml Inj (20 ML) ONE (07:52)
[2018-06-17] MEDS ORDERED: ePHEDrine 50 mg/ml Inj ONE (08:12)
[2018-06-17] MEDS: Dextrose 5%/0.45% NS 1,000 ML IV SCH ×2 (09:34→22:03)
[2018-06-17] MEDS: Calcium-Vit D 250 mg-125 Units Tab UD PO SCH (11:00)
[2018-06-17] MEDS: Magnesium Oxide 400 mg Tab UD PO SCH ×2 (11:00→17:27)
[2018-06-17] MEDS: Multiple Vitamins Tab PO SCH (11:00)
--- NOTE | 2018-06-17 12:16 | CP.PCM.PN ---
Subjective - Date & Time of Evaluation Date of Evaluation: 06/17/18 Time of Evaluation: 08:15 - Subjective Subjective: clinically same Objective - Vital Signs/Intake and Output Vital Signs (last 24 hours): Temp Pulse Resp BP Pulse Ox 97.5 F L 88 20 144/98 H 98 06/17/18 09:16 06/17/18 09:16 06/17/18 09:16 06/17/18 09:16 06/17/18 09:16 Intake and Output: 06/17/18 06/17/18 06:59 18:59 Intake Total 400 Balance 400 - Medications Medications: Current Medications Al Hydrox/Mg Hydrox/Simethicone (Maalox 30 Ml) 30 ml PO Q6H PRN PRN Reason: Indigestion / Heartburn Last Admin: 06/15/18 15:48 Dose: 30 ml Calcium/Vitamin D (Oscal-D 250 Mg-125 Units Tab) 1 tab PO DAILY [facility] Last Admin: 06/17/18 11:00 Dose: 1 tab Chlordiazepoxide (Librium) 25 mg PO Q12H [facility]; Taper Stop: 06/18/18 17:59 Last Admin: 06/17/18 06:00 Dose: Not Given Clonidine HCl (Catapres) 0.1 mg PO Q4H PRN PRN Reason: Symptoms of alcohol withdrawl Last Admin: 06/15/18 04:51 Dose: 0.1 mg Cyclobenzaprine HCl (Flexeril) 5 mg PO TIDAC [facility] Last Admin: 06/17/18 08:45 Dose: Not Given Folic Acid (Folic Acid) 1 mg PO DAILY [facility] Last Admin: 06/17/18 11:00 Dose: 1 mg Gabapentin (Neurontin) 300 mg PO BID [facility] Last Admin: 06/17/18 11:00 Dose: 300 mg Glimepiride (Amaryl) 4 mg PO BID [facility] Last Admin: 06/17/18 11:00 Dose: 4 mg Hydroxyzine HCl (Atarax) 50 mg PO Q6H PRN PRN Reason: Anxiety Last Admin: 06/15/18 21:24 Dose: 50 mg Dextrose/Sodium Chloride (Dextrose 5%/0.45% Ns 1000 Ml) 1,000 mls @ 75 mls/hr IV .[id number] [facility] Last Admin: 06/17/18 09:34 Dose: 75 mls/hr Influenza Virus Vaccine (Flucelvax Quad 3507-2330 Syr) 60 mcg IM .ONCE ONE Stop: 06/18/18 10:01 Insulin Aspart (Novolog) 0 unit SC Q6H [facility]; Protocol Last Admin: 06/17/18 08:30 Dose: Not Given Magnesium Oxide (Mag-Ox) 400 mg PO BID [facility] Last Admin: 06/17/18 11:00 Dose: 400 mg Metformin HCl (Glucophage) 1,000 mg PO BID [facility] Last Admin: 06/17/18 11:00 Dose: Not Given Mirtazapine (Remeron) 15 mg PO HS [facility] Last Admin: 06/15/18 21:24 Dose: 15 mg Multivitamins (Hexavitamin) 1 tab PO DAILY [facility] Last Admin: 06/17/18 11:00 Dose: 1 tab Nicotine (Nicoderm Cq) 1 patch TD DAILY [facility] Last Admin: 06/17/18 11:00 Dose: 1 patch Ondansetron HCl (Zofran Inj) 4 mg IVP Q8 PRN PRN Reason: Nausea/Vomiting Last Admin: 06/16/18 20:22 Dose: 4 mg Pantoprazole Sodium (Protonix Inj) 40 mg IVP Q12H [facility] Last Admin: 06/17/18 09:33 Dose: 40 mg Sitagliptin Phosphate (Januvia) 25 mg PO DAILY [facility] Last Admin: 06/17/18 11:00 Dose: 25 mg Thiamine HCl (Vitamin B1 Tab) 100 mg PO DAILY [facility] Last Admin: 06/17/18 11:00 Dose: 100 mg Trazodone HCl (Desyrel) 100 mg PO HS PRN PRN Reason: Insomnia Last Admin: 06/14/18 21:46 Dose: 100 mg - Labs Labs: 06/16/18 19:57 06/16/18 19:57 PT 11.6 SECONDS (9.7-12.2) 06/16/18 19:57 INR 1.1 06/16/18 19:57 - Constitutional Appears: Well - Head Exam Head Exam: ATRAUMATIC, NORMAL INSPECTION, NORMOCEPHALIC - Eye Exam Eye Exam: EOMI, Normal appearance, PERRL Pupil Exam: NORMAL ACCOMODATION, PERRL - ENT Exam ENT Exam: Mucous Membranes Moist, Normal Exam - Neck Exam Neck Exam: Full ROM, Normal Inspection. absent: Lymphadenopathy - Respiratory Exam Respiratory Exam: Decreased Breath Sounds - Cardiovascular Exam Cardiovascular Exam: REGULAR RHYTHM, +S1, +S2 - GI/Abdominal Exam GI & Abdominal Exam: Soft, Diminished Bowel Sounds - Rectal Exam Rectal Exam: Deferred Assessment and Plan (1) Alcohol abuse Status: Acute (2) Alcohol withdrawal Status: Acute (3) Airway compromise Status: Acute (4) Alcohol intoxication Status: Acute (5) Alcohol use disorder, severe, dependence Status: Acute (6) Alcoholic pancreatitis Status: Acute (7) Colitis Status: Acute (8) DKA (diabetic ketoacidoses) Status: Acute (9) Dehydration Status: Acute (10) Esophagitis Status: Acute (11) Hyperglycemia Status: Acute (12) Hypokalemia Status: Acute (13) Hyponatremia Status: Acute (14) Seizure Status: Acute (15) Throat pain in adult Status: Acute (16) Upper gastrointestinal hemorrhage Status: Acute (17) Vomiting Status: Acute
--- NOTE | 2018-06-17 12:33 | PCM.PYCHPN ---
Psychiatric Progress Note - Psychiatric Progress Note Patient seen today, length of contact: 17 min Patient Chief Complaint: "I am not well" Problems Identified/Issues Discussed: The pt is seen, chart reviewed, case discussed with staff. The pt is compliant with medications and reports no side-effects. Symptoms are improving but needs more time to stabilize. Pt attends groups and activities. Support given, psycho-education provided. After care discussed. Consults are on board for his swallow problem - help appreciated Diet is liquid now Medication Change: Yes (detox changes daily) Medical Record Reviewed: Yes Mental Status Examination - Cognitive Function Orientation: Person, Place, Situation, Time Memory: Intact Attention: WNL Concentration: Poor Association: WNL Fund of Knowledge: WNL - Mood Mood: Depressed, Anxious - Affect Affect: Constricted - Formal Thought Process Formal Thought Process: No Impairment - Suicidal Ideation Suicidal Ideation: No - Homicidal Ideation Homicidal Ideation: No Goal/Treatment Plan - Goal/Treatment Plan Need for Continued Stay: Discharge may exacerbated symptoms, Severe functional impairment Progress Toward Problem(s) and Goals/Treatment Plan: Librium detox As needed medications Remeron for depression Gabapentin for augmentation Attend groups and activities Supportive therapy and psychoeducation [place] for abstinence CBT for relapse prevention Encourage MAT Refer to rehab or IOP Attend self-help groups as well Resume DM meds and FS coverage Check accucheck Consult for swallow and GI Estimated Date of D/C: 06/18/18
--- NOTE | 2018-06-17 12:36 | PCM.PYCHPN ---
Psychiatric Progress Note - Psychiatric Progress Note Patient seen today, length of contact: 16 min Patient Chief Complaint: "I am better" Problems Identified/Issues Discussed: The pt is seen, chart reviewed, case discussed with staff. He is NOW in the medical unit b/c he needed IV fluids, EGD, etc Feeling better. EGD done this am Consult was asked for his ongoing detox treatment Support and psychoeducation given, CBT and MS used briefly No new symptoms reported, improving slowly and needs more time No SEs from medications, risks discussed. After care discussed - Still wants to go to [facility] rehab in [place]. Our counselor will still help and he needs a phone interview Medication Change: Yes (detox changes daily) Medical Record Reviewed: Yes Mental Status Examination - Cognitive Function Orientation: Person, Place, Situation, Time Memory: Intact Attention: WNL Concentration: Poor Association: WNL Fund of Knowledge: WNL - Mood Mood: Depressed, Anxious - Affect Affect: Constricted - Formal Thought Process Formal Thought Process: No Impairment - Suicidal Ideation Suicidal Ideation: No - Homicidal Ideation Homicidal Ideation: No Goal/Treatment Plan - Goal/Treatment Plan Need for Continued Stay: Severe functional impairment, Other (medical clearance) Progress Toward Problem(s) and Goals/Treatment Plan: Librium detox ending IF he cannot swallow librium, he can be given iv or im Ativan As needed medications Remeron for depression Gabapentin for augmentation Supportive therapy and psychoeducation Refer to rehab at [facility]
[2018-06-18 07:15] LABS: BASO # 0.1 K/uL (0.0-0.2); BASO % 0.8 % (0.0-2.0); EOS # 0.2 K/uL (0.0-0.7); EOS % 2.5 % (0.0-4.0); LYMPH # 2.8 K/uL (1.0-4.3); LYMPH % 32.6 % (20.0-40.0); MEAN CELL VOLUME 86.6 fL (80.0-94.0); MEAN CORPUSCULAR HEMOGLOBIN 28.3 pg (27.0-31.0); MEAN CORPUSCULAR HGB CONC 32.7 g/dL (33.0-37.0); MEAN PLATELET VOLUME 7.5 fL (7.2-11.7); MONO # 0.6 K/uL (0.0-0.8); NEUT # 4.9 K/uL (1.8-7.0); NEUT % 57.1 % (50.0-75.0); NRBC % 0.1 % (0.0-2.0); RBC 4.31 Mil/uL (4.40-5.90); RED CELL DISTRIBUTION WIDTH 17.5 % (11.5-14.5); WHITE BLOOD COUNT 8.6 K/uL (4.8-10.8)
[2018-06-18] MEDS: (Novolog) Insulin Aspart, Recombinant 100 u/ml 10 ml vial SC SCH ×4 (07:29→21:40)
[2018-06-18 07:32] LABS: HEMOGLOBIN 12.2 g/dL (12.0-18.0)
[2018-06-18 08:19] LABS: ALB/GLOB RATIO 1.1 (1.0-2.1); ALT/SGPT 34 U/L (21-72); AST/SGOT 30 U/L (17-59); BLOOD UREA NITROGEN 3 mg/dL (9-20); CALCIUM 8.3 mg/dl (8.6-10.4); GFR NON-AFRICAN AMERICAN > 60
[2018-06-18] MEDS ORDERED: Influenza Vaccine 60 mcg/0.5 mL SYR (4YR UP) IM ONE (10:00)
[2018-06-18] MEDS ORDERED: Pneumococcal 23-Valent Vaccine IM ONE (10:00)
[2018-06-18] MEDS: Magnesium Oxide 400 mg Tab UD PO SCH ×2 (10:06→17:35)
[2018-06-18] MEDS: Multiple Vitamins Tab PO SCH (10:07)
[2018-06-18] MEDS: Calcium-Vit D 250 mg-125 Units Tab UD PO SCH ×2 (10:11→11:22)
--- NOTE | 2018-06-18 11:10 | PCM.PYCHPN ---
Psychiatric Progress Note - Psychiatric Progress Note Patient seen today, length of contact: 16 min Patient Chief Complaint: "I cannot sleep" Problems Identified/Issues Discussed: The pt is seen, chart reviewed, case discussed with staff. Support and psychoeducation given Pt is improving slowly and needs more time, still have ongoing symptoms. But detox ended and it's mostly post-wdw anx Ativan iv cn be used for insomnia as he is unable to swallow even crushed pills he claims No SEs from medications, risks discussed. After care discussed but he will have to wait as his medical condition is complicated. Medication Change: Yes (detox ended) Medical Record Reviewed: Yes Mental Status Examination - Cognitive Function Orientation: Person, Place, Situation, Time Memory: Intact Attention: WNL Concentration: Poor Association: WNL Fund of Knowledge: WNL - Mood Mood: Depressed, Anxious - Affect Affect: Constricted - Formal Thought Process Formal Thought Process: No Impairment - Suicidal Ideation Suicidal Ideation: No - Homicidal Ideation Homicidal Ideation: No Goal/Treatment Plan - Goal/Treatment Plan Need for Continued Stay: Other (medical clearance) Progress Toward Problem(s) and Goals/Treatment Plan: Librium detox ending IF he cannot swallow librium, he can be given iv or im Ativan As needed medications Remeron for depression Gabapentin for augmentation Supportive therapy and psychoeducation Refer to rehab at [facility]
[2018-06-18] MEDS: Dextrose 5%/0.45% NS 1,000 ML IV SCH (11:58)
[2018-06-18] MEDS ORDERED: Lidocaine Hydrochloride 10 ML INJ ONE (12:56)
[2018-06-18] MEDS ORDERED: Propofol 10 mg/ml Inj (20 ML) ONE (12:56)
[2018-06-18] MEDS ORDERED: Etomidate 20 mg/10ml Inj IV ONE (12:56)
--- NOTE | 2018-06-18 14:30 | CP.PCM.PN ---
Subjective - Date & Time of Evaluation Date of Evaluation: 06/18/18 Time of Evaluation: 07:30 - Subjective Subjective: clinically same Objective - Vital Signs/Intake and Output Vital Signs (last 24 hours): Temp Pulse Resp BP Pulse Ox 98.2 F 79 20 123/67 100 06/18/18 13:52 06/18/18 13:52 06/18/18 13:52 06/18/18 13:52 06/18/18 13:52 Intake and Output: 06/18/18 06/18/18 06:59 18:59 Intake Total 600 200 Output Total 800 Balance -200 200 - Medications Medications: Current Medications Al Hydrox/Mg Hydrox/Simethicone (Maalox 30 Ml) 30 ml PO Q6H PRN PRN Reason: Indigestion / Heartburn Last Admin: 06/15/18 15:48 Dose: 30 ml Chlordiazepoxide (Librium) 25 mg PO ONCE ONE Stop: 06/18/18 18:01 Clonidine HCl (Catapres) 0.1 mg PO Q4H PRN PRN Reason: Symptoms of alcohol withdrawl Last Admin: 06/18/18 10:22 Dose: 0.1 mg Cyclobenzaprine HCl (Flexeril) 5 mg PO TIDAC [facility] Last Admin: 06/18/18 11:59 Dose: Not Given Folic Acid (Folic Acid) 1 mg PO DAILY [facility] Last Admin: 06/18/18 10:06 Dose: 1 mg Gabapentin (Neurontin) 300 mg PO BID [facility] Last Admin: 06/18/18 10:06 Dose: 300 mg Glimepiride (Amaryl) 4 mg PO BID [facility] Last Admin: 06/18/18 10:06 Dose: Not Given Hydroxyzine HCl (Atarax) 50 mg PO Q6H PRN PRN Reason: Anxiety Last Admin: 06/15/18 21:24 Dose: 50 mg Dextrose/Sodium Chloride (Dextrose 5%/0.45% Ns 1000 Ml) 1,000 mls @ 75 mls/hr IV .[id number] [facility] Last Admin: 06/18/18 11:58 Dose: 75 mls/hr Insulin Aspart (Novolog) 0 unit SC ACHS [facility]; Protocol Last Admin: 06/18/18 11:59 Dose: Not Given Magnesium Oxide (Mag-Ox) 400 mg PO BID [facility] Last Admin: 06/18/18 10:06 Dose: 400 mg Metformin HCl (Glucophage) 1,000 mg PO BID [facility] Last Admin: 06/18/18 10:06 Dose: Not Given Mirtazapine (Remeron) 15 mg PO HS [facility] Last Admin: 06/17/18 21:57 Dose: 15 mg Multivitamins (Hexavitamin) 1 tab PO DAILY [facility] Last Admin: 06/18/18 10:07 Dose: 1 tab Nicotine (Nicoderm Cq) 1 patch TD DAILY [facility] Last Admin: 06/18/18 10:05 Dose: 1 patch Ondansetron HCl (Zofran Inj) 4 mg IVP Q8 PRN PRN Reason: Nausea/Vomiting Last Admin: 06/18/18 10:25 Dose: 4 mg Pantoprazole Sodium (Protonix Inj) 40 mg IVP Q12H [facility] Last Admin: 06/18/18 08:30 Dose: 40 mg Sitagliptin Phosphate (Januvia) 25 mg PO DAILY [facility] Last Admin: 06/18/18 10:07 Dose: Not Given Thiamine HCl (Vitamin B1 Tab) 100 mg PO DAILY [facility] Last Admin: 06/18/18 10:06 Dose: 100 mg Trazodone HCl (Desyrel) 100 mg PO HS PRN PRN Reason: Insomnia Last Admin: 06/14/18 21:46 Dose: 100 mg - Labs Labs: 06/18/18 07:02 06/18/18 07:02 PT 11.6 SECONDS (9.7-12.2) 06/16/18 19:57 INR 1.1 06/16/18 19:57 - Constitutional Appears: Well - Head Exam Head Exam: ATRAUMATIC, NORMAL INSPECTION, NORMOCEPHALIC - Eye Exam Eye Exam: EOMI, Normal appearance, PERRL Pupil Exam: NORMAL ACCOMODATION, PERRL - ENT Exam ENT Exam: Mucous Membranes Moist, Normal Exam - Neck Exam Neck Exam: Full ROM, Normal Inspection. absent: Lymphadenopathy - Respiratory Exam Respiratory Exam: Decreased Breath Sounds - Cardiovascular Exam Cardiovascular Exam: REGULAR RHYTHM, +S1, +S2 - GI/Abdominal Exam GI & Abdominal Exam: Soft, Diminished Bowel Sounds - Rectal Exam Rectal Exam: Deferred Assessment and Plan (1) Alcohol abuse Status: Acute (2) Alcohol withdrawal Status: Acute (3) Airway compromise Status: Acute (4) Alcohol intoxication Status: Acute (5) Alcohol use disorder, severe, dependence Status: Acute (6) Alcoholic pancreatitis Status: Acute (7) Colitis Status: Acute (8) DKA (diabetic ketoacidoses) Status: Acute (9) Dehydration Status: Acute (10) Esophagitis Status: Acute (11) Hyperglycemia Status: Acute (12) Hypokalemia Status: Acute (13) Hyponatremia Status: Acute (14) Seizure Status: Acute (15) Throat pain in adult Status: Acute (16) Upper gastrointestinal hemorrhage Status: Acute (17) Vomiting Status: Acute
--- NOTE | 2018-06-18 15:13 | CP.PCM.CON ---
<Adam Pedroza - Last Filed: 06/18/18 15:29> History of Present Illness - History of Present Illness History of Present Illness: SURGERY NOTE FOR DR. FITZPATRICK 42M presents with new onset dysphagia. Patients he has not been able to tolerate solid PO diet, stating that he does have nausea and vomiting. Patient barely tolerates pureed diet. States that he is able to tolerate some liquids. Patient told other services that his dysphagia has been on going for omnths and he admits to 10-20 lb weight loss. EGD was attempted but stenosis of esophagus was encountered and also ulcerative esophagitis. PMH: DM, Pancreatitis, HTN, PUD PSH: denies Social: admits to tobacco, admits to alcohol, denies illicit drug use, however admitted to other services hx of cocaine, heroine Allergies: NKDA Past Patient History - Infectious Disease Hx of Infectious Diseases: None - Tetanus Immunizations Tetanus Immunization: Unknown - Past Medical History & Family History Past Medical History?: Yes - Past Social History Smoking Status: Light Smoker < 10 Cigarettes Daily - CARDIAC Hx Hypertension: No - PULMONARY Hx Tuberculosis: No Other/Comment: Currently smokes 2 ppd - NEUROLOGICAL Hx Seizures: No - HEENT Hx HEENT Problems: No - RENAL Hx Chronic Kidney Disease: No - ENDOCRINE/METABOLIC Hx Diabetes Mellitus Type 2: Yes - HEMATOLOGICAL/ONCOLOGICAL Hx Human Immunodeficiency Virus (HIV): No - INTEGUMENTARY Hx Dermatological Problems: No - MUSCULOSKELETAL/RHEUMATOLOGICAL Hx Back Pain: Yes Hx Falls: Yes - GASTROINTESTINAL Hx Gastritis: Yes Hx Gastroesophageal Reflux: Yes Hx Pancreatitis: Yes HX Swallowing Problems: Yes - GENITOURINARY/GYNECOLOGICAL Hx Sexually Transmitted Disorders: No - PSYCHIATRIC Hx Substance Use: Yes - SURGICAL HISTORY Hx Surgeries: No - ANESTHESIA Hx Anesthesia: No Meds Allergies/Adverse Reactions: Allergies Allergy/AdvReac Type Severity Reaction Status Date / Time No Known Allergies Allergy Verified 05/18/18 15:46 - Medications Medications: Current Medications Al Hydrox/Mg Hydrox/Simethicone (Maalox 30 Ml) 30 ml PO Q6H PRN PRN Reason: Indigestion / Heartburn Last Admin: 06/15/18 15:48 Dose: 30 ml Chlordiazepoxide (Librium) 25 mg PO ONCE ONE Stop: 06/18/18 18:01 Clonidine HCl (Catapres) 0.1 mg PO Q4H PRN PRN Reason: Symptoms of alcohol withdrawl Last Admin: 06/18/18 10:22 Dose: 0.1 mg Cyclobenzaprine HCl (Flexeril) 5 mg PO TIDAC [facility] Last Admin: 06/18/18 11:59 Dose: Not Given Folic Acid (Folic Acid) 1 mg PO DAILY [facility] Last Admin: 06/18/18 10:06 Dose: 1 mg Gabapentin (Neurontin) 300 mg PO BID [facility] Last Admin: 06/18/18 10:06 Dose: 300 mg Glimepiride (Amaryl) 4 mg PO BID [facility] Last Admin: 06/18/18 10:06 Dose: Not Given Hydroxyzine HCl (Atarax) 50 mg PO Q6H PRN PRN Reason: Anxiety Last Admin: 06/15/18 21:24 Dose: 50 mg Dextrose/Sodium Chloride (Dextrose 5%/0.45% Ns 1000 Ml) 1,000 mls @ 75 mls/hr IV .[id number] [facility] Last Admin: 06/18/18 11:58 Dose: 75 mls/hr Potassium Chloride (Potassium Chloride 20 Meq/100 Ml) 20 meq in 100 mls @ 50 mls/hr IVPB ONCE ONE Stop: 06/18/18 17:59 Insulin Aspart (Novolog) 0 unit SC [facility]; Protocol Last Admin: 06/18/18 11:59 Dose: Not Given Magnesium Oxide (Mag-Ox) 400 mg PO BID [facility] Last Admin: 06/18/18 10:06 Dose: 400 mg Metformin HCl (Glucophage) 1,000 mg PO BID [facility] Last Admin: 06/18/18 10:06 Dose: Not Given Mirtazapine (Remeron) 15 mg PO HS [facility] Last Admin: 06/17/18 21:57 Dose: 15 mg Multivitamins (Hexavitamin) 1 tab PO DAILY [facility] Last Admin: 06/18/18 10:07 Dose: 1 tab Nicotine (Nicoderm Cq) 1 patch TD DAILY [facility] Last Admin: 06/18/18 10:05 Dose: 1 patch Ondansetron HCl (Zofran Inj) 4 mg IVP Q8 PRN PRN Reason: Nausea/Vomiting Last Admin: 06/18/18 10:25 Dose: 4 mg Pantoprazole Sodium (Protonix Inj) 40 mg IVP Q12H [facility] Last Admin: 06/18/18 08:30 Dose: 40 mg Sitagliptin Phosphate (Januvia) 25 mg PO DAILY [facility] Last Admin: 06/18/18 10:07 Dose: Not Given Thiamine HCl (Vitamin B1 Tab) 100 mg PO DAILY [facility] Last Admin: 06/18/18 10:06 Dose: 100 mg Trazodone HCl (Desyrel) 100 mg PO HS PRN PRN Reason: Insomnia Last Admin: 06/14/18 21:46 Dose: 100 mg Physical Exam - Constitutional Appears: Non-toxic, No Acute Distress - Eye Exam Eye Exam: EOMI, PERRL - Respiratory Exam Respiratory Exam: Clear to Auscultation Bilateral, NORMAL BREATHING PATTERN - Cardiovascular Exam Cardiovascular Exam: REGULAR RHYTHM, +S1, +S2 - GI/Abdominal Exam GI & Abdominal Exam: Soft. absent: Distended, Firm, Guarding, Rebound, Rigid, Tenderness - Extremities Exam Extremities exam: Negative for: pedal edema, tenderness - Neurological Exam Neurological exam: Alert, Oriented x3 - Psychiatric Exam Psychiatric exam: Normal Affect, Normal Mood - Skin Skin Exam: Dry, Intact, Normal Color, Warm Results - Vital Signs Recent Vital Signs: Last Vital Signs Temp 98.2 F 06/18/18 13:52 Pulse 79 06/18/18 13:52 Resp 20 06/18/18 13:52 BP 123/67 06/18/18 13:52 Pulse Ox 100 06/18/18 13:52 - Labs Result Diagrams: 06/18/18 07:02 06/18/18 07:02 Labs: Laboratory Results - last 24 hr 06/17/18 06/17/18 06/18/18 16:37 21:43 07:02 WBC 8.6 RBC 4.31 L Hgb 12.2 D Hct 37.3 MCV 86.6 MCH 28.3 MCHC 32.7 L RDW 17.5 H Plt Count 403 H D MPV 7.5 Neut % (Auto) 57.1 Lymph % (Auto) 32.6 [place] % (Auto) 7.0 Eos % (Auto) 2.5 Baso % (Auto) 0.8 Neut # (Auto) 4.9 Lymph # (Auto) 2.8 [place] # (Auto) 0.6 Eos # (Auto) 0.2 Baso # (Auto) 0.1 Sodium Potassium Chloride Carbon Dioxide Anion Gap BUN Creatinine Est GFR ( Amer) Est GFR (Non-Af Amer) POC Glucose (mg/dL) 478 H* 212 H Random Glucose Calcium Total Bilirubin AST ALT Alkaline Phosphatase Total Protein Albumin Globulin Albumin/Globulin Ratio 06/18/18 06/18/18 06/18/18 07:02 07:06 11:47 WBC RBC Hgb Hct MCV MCH MCHC RDW Plt Count MPV Neut % (Auto) Lymph % (Auto) [place] % (Auto) Eos % (Auto) Baso % (Auto) Neut # (Auto) Lymph # (Auto) [place] # (Auto) Eos # (Auto) Baso # (Auto) Sodium 134 Potassium 3.5 L Chloride 105 Carbon Dioxide 24 Anion Gap 9 L BUN 3 L Creatinine 0.5 L Est GFR ( Amer) > 60 Est GFR (Non-Af Amer) > 60 POC Glucose (mg/dL) 184 H 176 H Random Glucose 174 H Calcium 8.3 L Total Bilirubin 0.3 AST 30 ALT 34 Alkaline Phosphatase 88 Total Protein 5.8 L Albumin 3.0 L D Globulin 2.8 Albumin/Globulin Ratio 1.1 Assessment & Plan - Assessment and Plan (Free Text) Assessment: 42M with dysphagia 2/2 esophageal stenosis EGD unable to traverse past stenosis Plan: - Patient will require gastrostomy tomorrow - Needs documentation of medical clearance - Will discuss further plans with Dr. Amari Pedroza, PGY3 <Derrick Fitzpatrick - Last Filed: 06/22/18 16:54> Meds - Medications Medications: Current Medications Al Hydrox/Mg Hydrox/Simethicone (Maalox 30 Ml) 30 ml PO Q6H PRN PRN Reason: Indigestion / Heartburn Last Admin: 06/15/18 15:48 Dose: 30 ml Clonidine HCl (Catapres) 0.1 mg PO Q4H PRN PRN Reason: Symptoms of alcohol withdrawl Last Admin: 06/18/18 10:22 Dose: 0.1 mg Cyclobenzaprine HCl (Flexeril) 5 mg PO TIDAC [facility] Last Admin: 06/22/18 12:09 Dose: 5 mg Folic Acid (Folic Acid) 1 mg PO DAILY [facility] Last Admin: 06/22/18 09:54 Dose: 1 mg Gabapentin (Neurontin) 300 mg PO BID [facility] Last Admin: 06/22/18 09:54 Dose: 300 mg Glimepiride (Amaryl) 4 mg PO BID [facility] Last Admin: 06/18/18 17:35 Dose: 4 mg Hydroxyzine HCl (Atarax) 50 mg PO Q6H PRN PRN Reason: Anxiety Last Admin: 06/15/18 21:24 Dose: 50 mg Sodium Chloride (Sodium Chloride 0.9%) 1,000 mls @ 125 mls/hr IV .Q8H [facility] Last Admin: 06/22/18 11:59 Dose: 125 mls/hr Insulin Aspart (Novolog) 0 unit SC ACHS [facility]; Protocol Last Admin: 06/22/18 12:09 Dose: 2 units Lorazepam (Ativan) 0.5 mg IVP HS PRN PRN Reason: Insomnia Magnesium Oxide (Mag-Ox) 400 mg PO BID [facility] Last Admin: 06/22/18 09:54 Dose: 400 mg Metformin HCl (Glucophage) 1,000 mg PO BID [facility] Last Admin: 06/22/18 09:54 Dose: 1,000 mg Mirtazapine (Remeron) 15 mg PO HS [facility] Last Admin: 06/21/18 22:05 Dose: 15 mg Multivitamins (Hexavitamin) 1 tab PO DAILY [facility] Last Admin: 06/22/18 09:55 Dose: 1 tab Nicotine (Nicoderm Cq) 1 patch TD DAILY [facility] Last Admin: 06/22/18 09:55 Dose: 1 patch Ondansetron HCl (Zofran Inj) 4 mg IVP Q8 PRN PRN Reason: Nausea/Vomiting Last Admin: 06/22/18 09:55 Dose: 4 mg Pantoprazole Sodium (Protonix Inj) 40 mg IVP Q12H [facility] Last Admin: 06/22/18 08:27 Dose: 40 mg Sitagliptin Phosphate (Januvia) 25 mg PO DAILY [facility] Last Admin: 06/22/18 09:54 Dose: 25 mg Thiamine HCl (Vitamin B1 Tab) 100 mg PO DAILY [facility] Last Admin: 06/22/18 09:54 Dose: 100 mg Trazodone HCl (Desyrel) 100 mg PO HS PRN PRN Reason: Insomnia Last Admin: 06/21/18 22:05 Dose: 100 mg Results - Vital Signs Recent Vital Signs: Last Vital Signs Temp 99 F 06/22/18 16:00 Pulse 107 H 06/22/18 16:00 Resp 20 06/22/18 16:00 BP 107/77 06/22/18 16:00 Pulse Ox 96 06/22/18 16:00 - Labs Result Diagrams: 06/22/18 08:05 06/22/18 08:05 Labs: Laboratory Results - last 24 hr 06/21/18 06/22/18 06/22/18 21:28 07:16 08:05 WBC 6.9 RBC 4.97 Hgb 14.0 Hct 42.6 MCV 85.7 MCH 28.1 MCHC 32.8 L RDW 17.3 H Plt Count 401 H MPV 8.0 Sodium Potassium Chloride Carbon Dioxide Anion Gap BUN Creatinine Est GFR ( Amer) Est GFR (Non-Af Amer) POC Glucose (mg/dL) 123 H 190 H Random Glucose Calcium 06/22/18 06/22/18 06/22/18 08:05 11:04 16:29 WBC RBC Hgb Hct MCV MCH MCHC RDW Plt Count MPV Sodium 133 Potassium 5.6 H Chloride 97 L Carbon Dioxide 30 Anion Gap 12 BUN 3 L Creatinine 0.6 L Est GFR ( Amer) > 60 Est GFR (Non-Af Amer) > 60 POC Glucose (mg/dL) 214 H 371 H Random Glucose 158 H Calcium 9.1 Attending/Attestation - Attestation I have personally seen and examined this patient.: Yes I have fully participated in the care of the patient.: Yes I have reviewed all pertinent clinical information: Yes Notes (Text): Pt was seen and examined at bedside Agree with above note and assessment Pt with dysphagia and EGD findings of Esophageal stenosis Abdomen: Soft, NT, Non distended labs and Radiology reviewed Ass: Dysphagia due to esophageal stricture Plan : Liquid diet CT surgery consult f.u Path report EUS Plan d.w pt in detail. Risk and benefit explained in detail.
--- NOTE | 2018-06-18 15:58 | CT ---
Date of service: 06/18/2018 PROCEDURE: CT Chest without contrast HISTORY: dysphagia, esoph stricture, R/O mass lesion COMPARISON: None available. TECHNIQUE: Contiguous axial images were obtained through the chest without intravenous contrast enhancement. Sagittal and coronal reconstructions were performed. Radiation dose: Total exam DLP = 360.77 mGy-cm. This CT exam was performed using one or more of the following dose reduction techniques: Automated exposure control, adjustment of the mA and/or kV according to patient size, and/or use of iterative reconstruction technique. FINDINGS: LUNGS: There are small nodular opacities noted at the right upper lobe likely represent infectious process versus aspiration. MEDIASTINUM: Unremarkable thoracic aorta. No aneurysm. Normal sized heart. Main pulmonary artery unremarkable. No vascular congestion. No lymphadenopathy. Mid to distal esophageal mucosal thickening noted. Suspicious for focal wall thickening versus circumferential mass at distal esophagus best seen on image 89 series 4. The assessment is limited without IV contrast administration. The differential consideration include esophagitis and stricture in the distal esophagus due to gastroesophageal reflux. No aortic atherosclerotic calcification. PLEURA: No pleural fluid. No pneumothorax. Small pleural thickening noted at the right lower chest. BONES: There is moderate to severe compression deformity of T7 vertebral body. There is also [id number] compression deformity at the superior portion of T9 vertebral body. There is subacute or old fracture at the posterior aspect of left 11 rib noted. UPPER ABDOMEN: The stomach is distended. There is mild diffuse thickening of the adrenal glands noted. OTHER FINDINGS: None. IMPRESSION: Diffuse thickening of esophagus. Suspicious for mass versus focal stricture in the distal esophagus. The assessment is limited without IV contrast administration. Further evaluation by upper GI study or enhance CT may be obtained. Small nodular opacities at the right lung upper lobe suspicious for aspiration versus pneumonia. Moderate to severe compression deformity of T7 and [id number] compression deformity of T9 noted.
--- NOTE | 2018-06-18 16:02 | RAD ---
Date of service: 06/18/2018 HISTORY: pre-op COMPARISON: Portable chest 04/24/2018. FINDINGS: LUNGS: No active pulmonary disease. PLEURA: No significant pleural effusion identified, no pneumothorax apparent. CARDIOVASCULAR: No aortic atherosclerotic calcification present. Normal cardiac size. No pulmonary vascular congestion. OSSEOUS STRUCTURES: No significant abnormalities. VISUALIZED UPPER ABDOMEN: Normal. OTHER FINDINGS: None. IMPRESSION: No interval acute cardiopulmonary disease appreciated.
[2018-06-19] MEDS: Dextrose 5%/0.45% NS 1,000 ML IV SCH ×3 (04:33→19:27)
[2018-06-19 07:19] LABS: BASO # 0.1 K/uL (0.0-0.2); BASO % 1.1 % (0.0-2.0); EOS # 0.1 K/uL (0.0-0.7); EOS % 2.5 % (0.0-4.0); HEMOGLOBIN 12.2 g/dL (12.0-18.0); LYMPH # 2.2 K/uL (1.0-4.3); LYMPH % 39.8 % (20.0-40.0); MEAN CELL VOLUME 86.2 fL (80.0-94.0); MEAN CORPUSCULAR HEMOGLOBIN 27.8 pg (27.0-31.0); MEAN CORPUSCULAR HGB CONC 32.2 g/dL (33.0-37.0); MEAN PLATELET VOLUME 7.6 fL (7.2-11.7); MONO # 0.4 K/uL (0.0-0.8); MONO % 7.8 % (0.0-10.0); NEUT # 2.6 K/uL (1.8-7.0); NEUT % 48.8 % (50.0-75.0); RBC 4.4 Mil/uL (4.40-5.90); RED CELL DISTRIBUTION WIDTH 17.5 % (11.5-14.5); WHITE BLOOD COUNT 5.4 K/uL (4.8-10.8)
--- NOTE | 2018-06-19 07:31 | CP.PCM.PN ---
<Alex Ozuna - Last Filed: 06/19/18 09:33> Subjective - Date & Time of Evaluation Date of Evaluation: 06/19/18 Time of Evaluation: 07:15 - Subjective Subjective: PGY6 GI Fellow Progress Note Patient seen and examined bedside this morning. The patient states that he is feeling well today and has no new complaints. No events overnight. Tolerated clear liquid diet without difficulty yesterday. No nausea/vomiting. Passing stool. 12 system ROS performed and negative except where stated Objective - Vital Signs/Intake and Output Vital Signs (last 24 hours): Temp Pulse Resp BP Pulse Ox 98.5 F 98 H 20 97/66 L 98 06/19/18 00:00 06/19/18 00:00 06/19/18 00:00 06/19/18 00:00 06/19/18 00:00 Intake and Output: 06/19/18 06/19/18 06:59 18:59 Intake Total 600 Balance 600 - Medications Medications: Current Medications Al Hydrox/Mg Hydrox/Simethicone (Maalox 30 Ml) 30 ml PO Q6H PRN PRN Reason: Indigestion / Heartburn Last Admin: 06/15/18 15:48 Dose: 30 ml Clonidine HCl (Catapres) 0.1 mg PO Q4H PRN PRN Reason: Symptoms of alcohol withdrawl Last Admin: 06/18/18 10:22 Dose: 0.1 mg Cyclobenzaprine HCl (Flexeril) 5 mg PO TIDAC [facility] Last Admin: 06/18/18 16:30 Dose: 5 mg Folic Acid (Folic Acid) 1 mg PO DAILY [facility] Last Admin: 06/18/18 10:06 Dose: 1 mg Gabapentin (Neurontin) 300 mg PO BID [facility] Last Admin: 06/18/18 17:36 Dose: 300 mg Glimepiride (Amaryl) 4 mg PO BID [facility] Last Admin: 06/18/18 17:35 Dose: 4 mg Hydroxyzine HCl (Atarax) 50 mg PO Q6H PRN PRN Reason: Anxiety Last Admin: 06/15/18 21:24 Dose: 50 mg Dextrose/Sodium Chloride (Dextrose 5%/0.45% Ns 1000 Ml) 1,000 mls @ 75 mls/hr IV .[id number] [facility] Last Admin: 06/19/18 04:33 Dose: 75 mls/hr Insulin Aspart (Novolog) 0 unit SC ACHS [facility]; Protocol Last Admin: 06/18/18 21:40 Dose: 2 units Magnesium Oxide (Mag-Ox) 400 mg PO BID [facility] Last Admin: 06/18/18 17:35 Dose: 400 mg Metformin HCl (Glucophage) 1,000 mg PO BID [facility] Last Admin: 06/18/18 17:35 Dose: 1,000 mg Mirtazapine (Remeron) 15 mg PO HS [facility] Last Admin: 06/18/18 21:43 Dose: 15 mg Multivitamins (Hexavitamin) 1 tab PO DAILY [facility] Last Admin: 06/18/18 10:07 Dose: 1 tab Nicotine (Nicoderm Cq) 1 patch TD DAILY [facility] Last Admin: 06/18/18 10:05 Dose: 1 patch Ondansetron HCl (Zofran Inj) 4 mg IVP Q8 PRN PRN Reason: Nausea/Vomiting Last Admin: 06/18/18 21:46 Dose: 4 mg Pantoprazole Sodium (Protonix Inj) 40 mg IVP Q12H [facility] Last Admin: 06/18/18 20:30 Dose: 40 mg Sitagliptin Phosphate (Januvia) 25 mg PO DAILY [facility] Last Admin: 06/18/18 10:07 Dose: Not Given Thiamine HCl (Vitamin B1 Tab) 100 mg PO DAILY [facility] Last Admin: 06/18/18 10:06 Dose: 100 mg Trazodone HCl (Desyrel) 100 mg PO HS PRN PRN Reason: Insomnia Last Admin: 06/18/18 21:43 Dose: 100 mg - Labs Labs: 06/19/18 07:04 06/18/18 07:02 PT 11.6 SECONDS (9.7-12.2) 06/16/18 19:57 INR 1.1 06/16/18 19:57 - Constitutional Appears: Non-toxic, No Acute Distress, Other (thin) - Eye Exam Eye Exam: EOMI, PERRL - ENT Exam ENT Exam: Mucous Membranes Moist - Respiratory Exam Respiratory Exam: Clear to Ausculation Bilateral. absent: Rales, Rhonchi, Wheezes - Cardiovascular Exam Cardiovascular Exam: RRR, +S1, +S2 - GI/Abdominal Exam GI & Abdominal Exam: Soft, Normal Bowel Sounds. absent: Distended, Firm, Guarding, Rigid, Tenderness, Organomegaly - Extremities Exam Extremities Exam: Normal Inspection. absent: Pedal Edema - Neurological Exam Neurological Exam: Alert, Awake, Oriented x3 - Psychiatric Exam Psychiatric exam: Anxious, Normal Affect - Skin Skin Exam: Dry, Warm Assessment and Plan - Assessment and Plan (Free Text) Assessment: Patient is a 42yo male with PMHx significant for alcohol-induced pancreatitis, type 2 DM, HTN, PUD, polysubstance abuse (EtOH/cocaine/heroin/benzodiazepines/tobacco) who presented to the hospital for alcohol detox -Dysphagia 2/2 esophageal stricture - differential includes peptic stricture, malignancy, severe erosive esophagitis -Odynophagia 2/2 above -Grade D esophagitis -Unintentional weight loss -Polysubstance abuse Plan: -Could not pass stricture with adult or pediatric endoscope -Awaiting pathology reports from esophageal biopsies -Dilation of stricture at this juncture would carry high risk of perforation -Ongoing aggressive PPI therapy with pantoprazole 40mg PO BID - continue for at least 4-6 weeks -Clear liquid diet only by mouth, patient must avoid solid food at this time -Plan for surgically placed PEG today -Building Engineer evaluation recommended -Social service assistance recommended given need for placement, plan for PEG insertion -Repeat endoscopy in 4-6 weeks to check healing and consider dilation <Smith Jasso - Last Filed: 06/19/18 10:28> Objective - Vital Signs/Intake and Output Vital Signs (last 24 hours): Temp Pulse Resp BP Pulse Ox 97.8 F 98 H 20 103/69 97 06/19/18 08:18 06/19/18 08:18 06/19/18 08:18 06/19/18 08:18 06/19/18 08:18 Intake and Output: 06/19/18 06/19/18 06:59 18:59 Intake Total 600 Balance 600 - Medications Medications: Current Medications Al Hydrox/Mg Hydrox/Simethicone (Maalox 30 Ml) 30 ml PO Q6H PRN PRN Reason: Indigestion / Heartburn Last Admin: 06/15/18 15:48 Dose: 30 ml Clonidine HCl (Catapres) 0.1 mg PO Q4H PRN PRN Reason: Symptoms of alcohol withdrawl Last Admin: 06/18/18 10:22 Dose: 0.1 mg Cyclobenzaprine HCl (Flexeril) 5 mg PO TIDAC [facility] Last Admin: 06/19/18 08:21 Dose: Not Given Folic Acid (Folic Acid) 1 mg PO DAILY [facility] Last Admin: 06/18/18 10:06 Dose: 1 mg Gabapentin (Neurontin) 300 mg PO BID [facility] Last Admin: 06/18/18 17:36 Dose: 300 mg Glimepiride (Amaryl) 4 mg PO BID [facility] Last Admin: 06/18/18 17:35 Dose: 4 mg Hydroxyzine HCl (Atarax) 50 mg PO Q6H PRN PRN Reason: Anxiety Last Admin: 06/15/18 21:24 Dose: 50 mg Dextrose/Sodium Chloride (Dextrose 5%/0.45% Ns 1000 Ml) 1,000 mls @ 75 mls/hr IV .[id number] [facility] Last Admin: 06/19/18 04:33 Dose: 75 mls/hr Insulin Aspart (Novolog) 0 unit SC [facility]; Protocol Last Admin: 06/19/18 08:20 Dose: Not Given Magnesium Oxide (Mag-Ox) 400 mg PO BID [facility] Last Admin: 06/18/18 17:35 Dose: 400 mg Metformin HCl (Glucophage) 1,000 mg PO BID [facility] Last Admin: 06/18/18 17:35 Dose: 1,000 mg Mirtazapine (Remeron) 15 mg PO HS [facility] Last Admin: 06/18/18 21:43 Dose: 15 mg Multivitamins (Hexavitamin) 1 tab PO DAILY [facility] Last Admin: 06/18/18 10:07 Dose: 1 tab Nicotine (Nicoderm Cq) 1 patch TD DAILY [facility] Last Admin: 06/18/18 10:05 Dose: 1 patch Ondansetron HCl (Zofran Inj) 4 mg IVP Q8 PRN PRN Reason: Nausea/Vomiting Last Admin: 06/18/18 21:46 Dose: 4 mg Pantoprazole Sodium (Protonix Inj) 40 mg IVP Q12H [facility] Last Admin: 06/18/18 20:30 Dose: 40 mg Sitagliptin Phosphate (Januvia) 25 mg PO DAILY [facility] Last Admin: 06/18/18 10:07 Dose: Not Given Thiamine HCl (Vitamin B1 Tab) 100 mg PO DAILY [facility] Last Admin: 06/18/18 10:06 Dose: 100 mg Trazodone HCl (Desyrel) 100 mg PO HS PRN PRN Reason: Insomnia Last Admin: 06/18/18 21:43 Dose: 100 mg - Labs Labs: 06/19/18 07:04 06/19/18 07:04 PT 11.6 SECONDS (9.7-12.2) 06/16/18 19:57 INR 1.1 06/16/18 19:57 Attending/Attestation - Attestation I have personally seen and examined this patient.: Yes I have fully participated in the care of the patient.: Yes I have reviewed all pertinent clinical information, including history, physical exam and plan: Yes Notes (Text): 06/19/18 10:25 I have seen and examined patient with GI fellow. No acute events overnight, he is seen resting in bed comfortably. He denies abdominal pain, nausea, vomiting, fever/chills. Scheduled for surgical gastrostomy tube placement today. DM/HTN ETOH abuse Weight loss Dysphagia - s/p EGD x 2 showing mid/distal esophageal stricture, unable to traverse despite use of XP scope CT chest reviewed by me showing distal esophageal thickening, no contrast was performed to evaluate for lymphadenopathy or mass - NPO - Patient scheduled for surgical gastrostomy tube placement today, follow up surgical recommendations - ETOH cessation - Continue with PPI therapy - Would recommend repeat EGD within 1 month to assess for interval improvement and for further evaluation/treatment
[2018-06-19 07:41] LABS: ALB/GLOB RATIO 1.1 (1.0-2.1); ALT/SGPT 26 U/L (21-72); AST/SGOT 17 U/L (17-59); BLOOD UREA NITROGEN 2 mg/dL (9-20); CALCIUM 8.3 mg/dl (8.6-10.4); GFR NON-AFRICAN AMERICAN > 60
[2018-06-19] MEDS: (Novolog) Insulin Aspart, Recombinant 100 u/ml 10 ml vial SC SCH ×4 (08:20→21:22)
[2018-06-19] MEDS: Magnesium Oxide 400 mg Tab UD PO SCH ×2 (11:04→17:01)
[2018-06-19] MEDS: Multiple Vitamins Tab PO SCH (11:16)
--- NOTE | 2018-06-19 14:53 | CP.PCM.PN ---
<Adam Pedroza - Last Filed: 06/19/18 14:49> Subjective - Date & Time of Evaluation Date of Evaluation: 06/19/18 Time of Evaluation: 14:49 - Subjective Subjective: SURGERY NOTE FOR DR. Fitzpatrick 42M seen and examined at bedside. No acute events overnight. Patient tolerating some liquid diet today. Objective - Vital Signs/Intake and Output Vital Signs (last 24 hours): Temp Pulse Resp BP Pulse Ox 97.8 F 98 H 20 103/69 97 06/19/18 08:18 06/19/18 08:18 06/19/18 08:18 06/19/18 08:18 06/19/18 08:18 Intake and Output: 06/19/18 06/19/18 06:59 18:59 Intake Total 600 Balance 600 - Medications Medications: Current Medications Al Hydrox/Mg Hydrox/Simethicone (Maalox 30 Ml) 30 ml PO Q6H PRN PRN Reason: Indigestion / Heartburn Last Admin: 06/15/18 15:48 Dose: 30 ml Clonidine HCl (Catapres) 0.1 mg PO Q4H PRN PRN Reason: Symptoms of alcohol withdrawl Last Admin: 06/18/18 10:22 Dose: 0.1 mg Cyclobenzaprine HCl (Flexeril) 5 mg PO TIDAC [facility] Last Admin: 06/19/18 12:16 Dose: 5 mg Folic Acid (Folic Acid) 1 mg PO DAILY [facility] Last Admin: 06/19/18 11:04 Dose: 1 mg Gabapentin (Neurontin) 300 mg PO BID [facility] Last Admin: 06/19/18 11:04 Dose: 300 mg Glimepiride (Amaryl) 4 mg PO BID [facility] Last Admin: 06/18/18 17:35 Dose: 4 mg Hydroxyzine HCl (Atarax) 50 mg PO Q6H PRN PRN Reason: Anxiety Last Admin: 06/15/18 21:24 Dose: 50 mg Dextrose/Sodium Chloride (Dextrose 5%/0.45% Ns 1000 Ml) 1,000 mls @ 75 mls/hr IV .[id number] [facility] Last Admin: 06/19/18 04:33 Dose: 75 mls/hr Insulin Aspart (Novolog) 0 unit SC [facility]; Protocol Last Admin: 06/19/18 12:26 Dose: Not Given Lorazepam (Ativan) 0.5 mg IVP HS PRN PRN Reason: Insomnia Magnesium Oxide (Mag-Ox) 400 mg PO BID [facility] Last Admin: 06/19/18 11:04 Dose: 400 mg Metformin HCl (Glucophage) 1,000 mg PO BID [facility] Last Admin: 06/19/18 11:05 Dose: 1,000 mg Mirtazapine (Remeron) 15 mg PO HS [facility] Last Admin: 06/18/18 21:43 Dose: 15 mg Multivitamins (Hexavitamin) 1 tab PO DAILY [facility] Last Admin: 06/19/18 11:16 Dose: 1 tab Nicotine (Nicoderm Cq) 1 patch TD DAILY [facility] Last Admin: 06/19/18 11:16 Dose: 1 patch Ondansetron HCl (Zofran Inj) 4 mg IVP Q8 PRN PRN Reason: Nausea/Vomiting Last Admin: 06/18/18 21:46 Dose: 4 mg Pantoprazole Sodium (Protonix Inj) 40 mg IVP Q12H [facility] Last Admin: 06/19/18 08:30 Dose: 40 mg Sitagliptin Phosphate (Januvia) 25 mg PO DAILY [facility] Last Admin: 06/19/18 11:04 Dose: 25 mg Thiamine HCl (Vitamin B1 Tab) 100 mg PO DAILY [facility] Last Admin: 06/19/18 11:03 Dose: 100 mg Trazodone HCl (Desyrel) 100 mg PO HS PRN PRN Reason: Insomnia Last Admin: 06/18/18 21:43 Dose: 100 mg - Labs Labs: 06/19/18 07:04 06/19/18 07:04 PT 11.6 SECONDS (9.7-12.2) 06/16/18 19:57 INR 1.1 06/16/18 19:57 - Constitutional Appears: Non-toxic, No Acute Distress - Respiratory Exam Respiratory Exam: Clear to Ausculation Bilateral, NORMAL BREATHING PATTERN - Cardiovascular Exam Cardiovascular Exam: REGULAR RHYTHM, +S1, +S2 - GI/Abdominal Exam GI & Abdominal Exam: Soft. absent: Distended, Firm, Guarding, Rigid, Tenderness, Rebound - Extremities Exam Extremities Exam: absent: Pedal Edema, Tenderness Assessment and Plan - Assessment and Plan (Free Text) Assessment: 42M with esophageal stricture Plan: - discussed with CT surgery - await biopsy - will hold off on feeding tube till pathology returns - Explained to patient - continue clear liquid diet Further recs discuss with Dr. Amari Pedroza, PGY3 <Derrick Fitzpatrick - Last Filed: 06/22/18 16:55> Objective - Vital Signs/Intake and Output Vital Signs (last 24 hours): Temp Pulse Resp BP Pulse Ox 99 F 107 H 20 107/77 96 06/22/18 16:00 06/22/18 16:00 06/22/18 16:00 06/22/18 16:00 06/22/18 16:00 Intake and Output: 06/22/18 06/22/18 06:59 18:59 Intake Total 2140 1999 Output Total 1000 Balance 1140 1999 - Medications Medications: Current Medications Al Hydrox/Mg Hydrox/Simethicone (Maalox 30 Ml) 30 ml PO Q6H PRN PRN Reason: Indigestion / Heartburn Last Admin: 06/15/18 15:48 Dose: 30 ml Clonidine HCl (Catapres) 0.1 mg PO Q4H PRN PRN Reason: Symptoms of alcohol withdrawl Last Admin: 06/18/18 10:22 Dose: 0.1 mg Cyclobenzaprine HCl (Flexeril) 5 mg PO TIDAC [facility] Last Admin: 06/22/18 12:09 Dose: 5 mg Folic Acid (Folic Acid) 1 mg PO DAILY [facility] Last Admin: 06/22/18 09:54 Dose: 1 mg Gabapentin (Neurontin) 300 mg PO BID [facility] Last Admin: 06/22/18 09:54 Dose: 300 mg Glimepiride (Amaryl) 4 mg PO BID [facility] Last Admin: 06/18/18 17:35 Dose: 4 mg Hydroxyzine HCl (Atarax) 50 mg PO Q6H PRN PRN Reason: Anxiety Last Admin: 06/15/18 21:24 Dose: 50 mg Sodium Chloride (Sodium Chloride 0.9%) 1,000 mls @ 125 mls/hr IV .Q8H [facility] Last Admin: 06/22/18 11:59 Dose: 125 mls/hr Insulin Aspart (Novolog) 0 unit SC ACHS [facility]; Protocol Last Admin: 06/22/18 12:09 Dose: 2 units Lorazepam (Ativan) 0.5 mg IVP HS PRN PRN Reason: Insomnia Magnesium Oxide (Mag-Ox) 400 mg PO BID [facility] Last Admin: 06/22/18 09:54 Dose: 400 mg Metformin HCl (Glucophage) 1,000 mg PO BID [facility] Last Admin: 06/22/18 09:54 Dose: 1,000 mg Mirtazapine (Remeron) 15 mg PO HS [facility] Last Admin: 06/21/18 22:05 Dose: 15 mg Multivitamins (Hexavitamin) 1 tab PO DAILY [facility] Last Admin: 06/22/18 09:55 Dose: 1 tab Nicotine (Nicoderm Cq) 1 patch TD DAILY [facility] Last Admin: 06/22/18 09:55 Dose: 1 patch Ondansetron HCl (Zofran Inj) 4 mg IVP Q8 PRN PRN Reason: Nausea/Vomiting Last Admin: 06/22/18 09:55 Dose: 4 mg Pantoprazole Sodium (Protonix Inj) 40 mg IVP Q12H [facility] Last Admin: 06/22/18 08:27 Dose: 40 mg Sitagliptin Phosphate (Januvia) 25 mg PO DAILY [facility] Last Admin: 06/22/18 09:54 Dose: 25 mg Thiamine HCl (Vitamin B1 Tab) 100 mg PO DAILY [facility] Last Admin: 06/22/18 09:54 Dose: 100 mg Trazodone HCl (Desyrel) 100 mg PO HS PRN PRN Reason: Insomnia Last Admin: 06/21/18 22:05 Dose: 100 mg - Labs Labs: 06/22/18 08:05 06/22/18 08:05 PT 11.6 SECONDS (9.7-12.2) 06/16/18 19:57 INR 1.1 06/16/18 19:57 Attending/Attestation - Attestation I have personally seen and examined this patient.: Yes I have fully participated in the care of the patient.: Yes I have reviewed all pertinent clinical information, including history, physical exam and plan: Yes Notes (Text): Pt was seen and examined at bedside Agree with above note and assessment Pt is stable clinically CT surgery input appreciated Will wait for path report Plan d.w pt in detail.
--- NOTE | 2018-06-19 16:43 | CP.PCM.PCO ---
Physician Communication Note - Physician Communication Note Physician Communication Note: Patient is medically cleared for surgery as per DR Johann Gill
--- NOTE | 2018-06-19 19:25 | CP.PCM.PN ---
Subjective - Date & Time of Evaluation Date of Evaluation: 06/19/18 Time of Evaluation: 07:30 - Subjective Subjective: clinically same Objective - Vital Signs/Intake and Output Vital Signs (last 24 hours): Temp Pulse Resp BP Pulse Ox 98.8 F 97 H 20 115/79 100 06/19/18 17:16 06/19/18 17:16 06/19/18 17:16 06/19/18 17:16 06/19/18 17:16 Intake and Output: 06/19/18 06/20/18 18:59 06:59 Intake Total 1000 Balance 1000 - Medications Medications: Current Medications Al Hydrox/Mg Hydrox/Simethicone (Maalox 30 Ml) 30 ml PO Q6H PRN PRN Reason: Indigestion / Heartburn Last Admin: 06/15/18 15:48 Dose: 30 ml Clonidine HCl (Catapres) 0.1 mg PO Q4H PRN PRN Reason: Symptoms of alcohol withdrawl Last Admin: 06/18/18 10:22 Dose: 0.1 mg Cyclobenzaprine HCl (Flexeril) 5 mg PO TIDAC [facility] Last Admin: 06/19/18 12:16 Dose: 5 mg Folic Acid (Folic Acid) 1 mg PO DAILY [facility] Last Admin: 06/19/18 11:04 Dose: 1 mg Gabapentin (Neurontin) 300 mg PO BID [facility] Last Admin: 06/19/18 17:01 Dose: 300 mg Glimepiride (Amaryl) 4 mg PO BID [facility] Last Admin: 06/18/18 17:35 Dose: 4 mg Hydroxyzine HCl (Atarax) 50 mg PO Q6H PRN PRN Reason: Anxiety Last Admin: 06/15/18 21:24 Dose: 50 mg Dextrose/Sodium Chloride (Dextrose 5%/0.45% Ns 1000 Ml) 1,000 mls @ 75 mls/hr IV .[id number] [facility] Last Admin: 06/19/18 15:23 Dose: Not Given Insulin Aspart (Novolog) 0 unit SC ACHS [facility]; Protocol Last Admin: 06/19/18 17:04 Dose: 3 units Lorazepam (Ativan) 0.5 mg IVP HS PRN PRN Reason: Insomnia Magnesium Oxide (Mag-Ox) 400 mg PO BID [facility] Last Admin: 06/19/18 17:01 Dose: 400 mg Metformin HCl (Glucophage) 1,000 mg PO BID [facility] Last Admin: 06/19/18 17:01 Dose: 1,000 mg Mirtazapine (Remeron) 15 mg PO HS [facility] Last Admin: 06/18/18 21:43 Dose: 15 mg Multivitamins (Hexavitamin) 1 tab PO DAILY [facility] Last Admin: 06/19/18 11:16 Dose: 1 tab Nicotine (Nicoderm Cq) 1 patch TD DAILY [facility] Last Admin: 06/19/18 11:16 Dose: 1 patch Ondansetron HCl (Zofran Inj) 4 mg IVP Q8 PRN PRN Reason: Nausea/Vomiting Last Admin: 06/18/18 21:46 Dose: 4 mg Pantoprazole Sodium (Protonix Inj) 40 mg IVP Q12H [facility] Last Admin: 06/19/18 08:30 Dose: 40 mg Sitagliptin Phosphate (Januvia) 25 mg PO DAILY [facility] Last Admin: 06/19/18 11:04 Dose: 25 mg Thiamine HCl (Vitamin B1 Tab) 100 mg PO DAILY [facility] Last Admin: 06/19/18 11:03 Dose: 100 mg Trazodone HCl (Desyrel) 100 mg PO HS PRN PRN Reason: Insomnia Last Admin: 06/18/18 21:43 Dose: 100 mg - Labs Labs: 06/19/18 07:04 06/19/18 07:04 PT 11.6 SECONDS (9.7-12.2) 06/16/18 19:57 INR 1.1 06/16/18 19:57 - Constitutional Appears: Well - Head Exam Head Exam: ATRAUMATIC, NORMAL INSPECTION, NORMOCEPHALIC - Eye Exam Eye Exam: EOMI, Normal appearance, PERRL Pupil Exam: NORMAL ACCOMODATION, PERRL - ENT Exam ENT Exam: Mucous Membranes Moist, Normal Exam - Neck Exam Neck Exam: Full ROM, Normal Inspection. absent: Lymphadenopathy - Respiratory Exam Respiratory Exam: Decreased Breath Sounds - Cardiovascular Exam Cardiovascular Exam: REGULAR RHYTHM, +S1, +S2 - GI/Abdominal Exam GI & Abdominal Exam: Soft, Diminished Bowel Sounds - Rectal Exam Rectal Exam: Deferred Assessment and Plan (1) Alcohol abuse Status: Acute (2) Alcohol withdrawal Status: Acute (3) Airway compromise Status: Acute (4) Alcohol intoxication Status: Acute (5) Alcohol use disorder, severe, dependence Status: Acute (6) Alcoholic pancreatitis Status: Acute (7) Colitis Status: Acute (8) DKA (diabetic ketoacidoses) Status: Acute (9) Dehydration Status: Acute (10) Esophagitis Status: Acute (11) Hyperglycemia Status: Acute (12) Hypokalemia Status: Acute (13) Hyponatremia Status: Acute (14) Seizure Status: Acute (15) Throat pain in adult Status: Acute (16) Upper gastrointestinal hemorrhage Status: Acute (17) Vomiting Status: Acute
[2018-06-20] MEDS: Dextrose 5%/0.45% NS 1,000 ML IV SCH ×3 (06:53→20:51)
--- NOTE | 2018-06-20 08:11 | CP.PCM.PN ---
<Adam Pedroza - Last Filed: 06/20/18 08:11> Subjective - Date & Time of Evaluation Date of Evaluation: 06/20/18 Time of Evaluation: 08:09 - Subjective Subjective: SURGERY NOTE FOR DR. FITZPATRICK 42M seen and examined bedside. No acute events overnight. Tolerates some liquids. does not tolerate solids. Denies nausea/vomiting. Objective - Vital Signs/Intake and Output Vital Signs (last 24 hours): Temp Pulse Resp BP Pulse Ox 97.8 F 85 20 146/99 H 99 06/20/18 07:37 06/20/18 07:37 06/20/18 07:37 06/20/18 07:37 06/20/18 07:37 Intake and Output: 06/20/18 06/20/18 06:59 18:59 Intake Total 1200 Balance 1200 - Medications Medications: Current Medications Al Hydrox/Mg Hydrox/Simethicone (Maalox 30 Ml) 30 ml PO Q6H PRN PRN Reason: Indigestion / Heartburn Last Admin: 06/15/18 15:48 Dose: 30 ml Clonidine HCl (Catapres) 0.1 mg PO Q4H PRN PRN Reason: Symptoms of alcohol withdrawl Last Admin: 06/18/18 10:22 Dose: 0.1 mg Cyclobenzaprine HCl (Flexeril) 5 mg PO TIDAC [facility] Last Admin: 06/19/18 16:30 Dose: 5 mg Folic Acid (Folic Acid) 1 mg PO DAILY [facility] Last Admin: 06/19/18 11:04 Dose: 1 mg Gabapentin (Neurontin) 300 mg PO BID [facility] Last Admin: 06/19/18 17:01 Dose: 300 mg Glimepiride (Amaryl) 4 mg PO BID [facility] Last Admin: 06/18/18 17:35 Dose: 4 mg Hydroxyzine HCl (Atarax) 50 mg PO Q6H PRN PRN Reason: Anxiety Last Admin: 06/15/18 21:24 Dose: 50 mg Dextrose/Sodium Chloride (Dextrose 5%/0.45% Ns 1000 Ml) 1,000 mls @ 75 mls/hr IV .[id number] [facility] Last Admin: 06/20/18 06:53 Dose: 75 mls/hr Insulin Aspart (Novolog) 0 unit SC [facility]; Protocol Last Admin: 06/19/18 21:22 Dose: Not Given Lorazepam (Ativan) 0.5 mg IVP HS PRN PRN Reason: Insomnia Magnesium Oxide (Mag-Ox) 400 mg PO BID [facility] Last Admin: 06/19/18 17:01 Dose: 400 mg Metformin HCl (Glucophage) 1,000 mg PO BID [facility] Last Admin: 06/19/18 17:01 Dose: 1,000 mg Mirtazapine (Remeron) 15 mg PO HS [facility] Last Admin: 06/19/18 22:02 Dose: 15 mg Multivitamins (Hexavitamin) 1 tab PO DAILY [facility] Last Admin: 06/19/18 11:16 Dose: 1 tab Nicotine (Nicoderm Cq) 1 patch TD DAILY [facility] Last Admin: 06/19/18 11:16 Dose: 1 patch Ondansetron HCl (Zofran Inj) 4 mg IVP Q8 PRN PRN Reason: Nausea/Vomiting Last Admin: 06/19/18 21:27 Dose: 4 mg Pantoprazole Sodium (Protonix Inj) 40 mg IVP Q12H [facility] Last Admin: 06/19/18 21:22 Dose: 40 mg Sitagliptin Phosphate (Januvia) 25 mg PO DAILY [facility] Last Admin: 06/19/18 11:04 Dose: 25 mg Thiamine HCl (Vitamin B1 Tab) 100 mg PO DAILY [facility] Last Admin: 06/19/18 11:03 Dose: 100 mg Trazodone HCl (Desyrel) 100 mg PO HS PRN PRN Reason: Insomnia Last Admin: 06/19/18 21:37 Dose: 100 mg - Labs Labs: 06/19/18 07:04 06/19/18 07:04 PT 11.6 SECONDS (9.7-12.2) 06/16/18 19:57 INR 1.1 06/16/18 19:57 - Constitutional Appears: Non-toxic, No Acute Distress - Respiratory Exam Respiratory Exam: NORMAL BREATHING PATTERN - Cardiovascular Exam Cardiovascular Exam: REGULAR RHYTHM, +S2 - GI/Abdominal Exam GI & Abdominal Exam: Soft, Tenderness. absent: Distended, Firm, Guarding, Rigid, Rebound - Neurological Exam Neurological Exam: Alert, Awake Assessment and Plan - Assessment and Plan (Free Text) Assessment: 42M with dysphagia 2/2 esophageal stricture Pathology - necroinflammatory debris, rare squamous cells. no malignancy seen Plan: - Plan for OR for feeding tube saturday. Discussed with Dr. Amari Pedroza, PGY3 <Derrick Fitzpatrick - Last Filed: 06/22/18 16:56> Objective - Vital Signs/Intake and Output Vital Signs (last 24 hours): Temp Pulse Resp BP Pulse Ox 99 F 107 H 20 107/77 96 06/22/18 16:00 06/22/18 16:00 06/22/18 16:00 06/22/18 16:00 06/22/18 16:00 Intake and Output: 06/22/18 06/22/18 06:59 18:59 Intake Total 2140 1999 Output Total 1000 Balance 1140 1999 - Medications Medications: Current Medications Al Hydrox/Mg Hydrox/Simethicone (Maalox 30 Ml) 30 ml PO Q6H PRN PRN Reason: Indigestion / Heartburn Last Admin: 06/15/18 15:48 Dose: 30 ml Clonidine HCl (Catapres) 0.1 mg PO Q4H PRN PRN Reason: Symptoms of alcohol withdrawl Last Admin: 06/18/18 10:22 Dose: 0.1 mg Cyclobenzaprine HCl (Flexeril) 5 mg PO TIDAC [facility] Last Admin: 06/22/18 12:09 Dose: 5 mg Folic Acid (Folic Acid) 1 mg PO DAILY [facility] Last Admin: 06/22/18 09:54 Dose: 1 mg Gabapentin (Neurontin) 300 mg PO BID [facility] Last Admin: 06/22/18 09:54 Dose: 300 mg Glimepiride (Amaryl) 4 mg PO BID [facility] Last Admin: 06/18/18 17:35 Dose: 4 mg Hydroxyzine HCl (Atarax) 50 mg PO Q6H PRN PRN Reason: Anxiety Last Admin: 06/15/18 21:24 Dose: 50 mg Sodium Chloride (Sodium Chloride 0.9%) 1,000 mls @ 125 mls/hr IV .Q8H [facility] Last Admin: 06/22/18 11:59 Dose: 125 mls/hr Insulin Aspart (Novolog) 0 unit SC ACHS [facility]; Protocol Last Admin: 06/22/18 12:09 Dose: 2 units Lorazepam (Ativan) 0.5 mg IVP HS PRN PRN Reason: Insomnia Magnesium Oxide (Mag-Ox) 400 mg PO BID [facility] Last Admin: 06/22/18 09:54 Dose: 400 mg Metformin HCl (Glucophage) 1,000 mg PO BID [facility] Last Admin: 06/22/18 09:54 Dose: 1,000 mg Mirtazapine (Remeron) 15 mg PO HS [facility] Last Admin: 06/21/18 22:05 Dose: 15 mg Multivitamins (Hexavitamin) 1 tab PO DAILY [facility] Last Admin: 06/22/18 09:55 Dose: 1 tab Nicotine (Nicoderm Cq) 1 patch TD DAILY [facility] Last Admin: 06/22/18 09:55 Dose: 1 patch Ondansetron HCl (Zofran Inj) 4 mg IVP Q8 PRN PRN Reason: Nausea/Vomiting Last Admin: 06/22/18 09:55 Dose: 4 mg Pantoprazole Sodium (Protonix Inj) 40 mg IVP Q12H [facility] Last Admin: 06/22/18 08:27 Dose: 40 mg Sitagliptin Phosphate (Januvia) 25 mg PO DAILY [facility] Last Admin: 06/22/18 09:54 Dose: 25 mg Thiamine HCl (Vitamin B1 Tab) 100 mg PO DAILY [facility] Last Admin: 06/22/18 09:54 Dose: 100 mg Trazodone HCl (Desyrel) 100 mg PO HS PRN PRN Reason: Insomnia Last Admin: 06/21/18 22:05 Dose: 100 mg - Labs Labs: 06/22/18 08:05 06/22/18 08:05 PT 11.6 SECONDS (9.7-12.2) 06/16/18 19:57 INR 1.1 06/16/18 19:57 Attending/Attestation - Attestation I have fully participated in the care of the patient.: Yes I have reviewed all pertinent clinical information, including history, physical exam and plan: Yes Notes (Text): Path is suggestive of no malignancy Will plan for G tube on saturday C.w liquid diet Plan d.w pt in detail..
--- NOTE | 2018-06-20 08:45 | CP.PCM.PN ---
<Alex Ozuna - Last Filed: 06/20/18 13:09> Subjective - Date & Time of Evaluation Date of Evaluation: 06/20/18 Time of Evaluation: 07:45 - Subjective Subjective: PGY6 GI Fellow Progress Note Patient seen and examined bedside this morning. The patient states that he is feeling well today and has no new complaints. Tolerating liquid diet without issue. No nausea, vomiting episodes. 12 system ROS performed and negative except where stated Objective - Vital Signs/Intake and Output Vital Signs (last 24 hours): Temp Pulse Resp BP Pulse Ox 97.8 F 85 20 146/99 H 99 06/20/18 07:37 06/20/18 07:37 06/20/18 07:37 06/20/18 07:37 06/20/18 07:37 Intake and Output: 06/20/18 06/20/18 06:59 18:59 Intake Total 1200 Balance 1200 - Medications Medications: Current Medications Al Hydrox/Mg Hydrox/Simethicone (Maalox 30 Ml) 30 ml PO Q6H PRN PRN Reason: Indigestion / Heartburn Last Admin: 06/15/18 15:48 Dose: 30 ml Clonidine HCl (Catapres) 0.1 mg PO Q4H PRN PRN Reason: Symptoms of alcohol withdrawl Last Admin: 06/18/18 10:22 Dose: 0.1 mg Cyclobenzaprine HCl (Flexeril) 5 mg PO TIDAC [facility] Last Admin: 06/19/18 16:30 Dose: 5 mg Folic Acid (Folic Acid) 1 mg PO DAILY [facility] Last Admin: 06/19/18 11:04 Dose: 1 mg Gabapentin (Neurontin) 300 mg PO BID [facility] Last Admin: 06/19/18 17:01 Dose: 300 mg Glimepiride (Amaryl) 4 mg PO BID [facility] Last Admin: 06/18/18 17:35 Dose: 4 mg Hydroxyzine HCl (Atarax) 50 mg PO Q6H PRN PRN Reason: Anxiety Last Admin: 06/15/18 21:24 Dose: 50 mg Dextrose/Sodium Chloride (Dextrose 5%/0.45% Ns 1000 Ml) 1,000 mls @ 75 mls/hr IV .[id number] [facility] Last Admin: 06/20/18 06:53 Dose: 75 mls/hr Insulin Aspart (Novolog) 0 unit SC ACHS [facility]; Protocol Last Admin: 06/19/18 21:22 Dose: Not Given Lorazepam (Ativan) 0.5 mg IVP HS PRN PRN Reason: Insomnia Magnesium Oxide (Mag-Ox) 400 mg PO BID [facility] Last Admin: 06/19/18 17:01 Dose: 400 mg Metformin HCl (Glucophage) 1,000 mg PO BID [facility] Last Admin: 06/19/18 17:01 Dose: 1,000 mg Mirtazapine (Remeron) 15 mg PO HS [facility] Last Admin: 06/19/18 22:02 Dose: 15 mg Multivitamins (Hexavitamin) 1 tab PO DAILY [facility] Last Admin: 06/19/18 11:16 Dose: 1 tab Nicotine (Nicoderm Cq) 1 patch TD DAILY [facility] Last Admin: 06/19/18 11:16 Dose: 1 patch Ondansetron HCl (Zofran Inj) 4 mg IVP Q8 PRN PRN Reason: Nausea/Vomiting Last Admin: 06/19/18 21:27 Dose: 4 mg Pantoprazole Sodium (Protonix Inj) 40 mg IVP Q12H [facility] Last Admin: 06/19/18 21:22 Dose: 40 mg Sitagliptin Phosphate (Januvia) 25 mg PO DAILY [facility] Last Admin: 06/19/18 11:04 Dose: 25 mg Thiamine HCl (Vitamin B1 Tab) 100 mg PO DAILY [facility] Last Admin: 06/19/18 11:03 Dose: 100 mg Trazodone HCl (Desyrel) 100 mg PO HS PRN PRN Reason: Insomnia Last Admin: 06/19/18 21:37 Dose: 100 mg - Labs Labs: 06/19/18 07:04 06/19/18 07:04 PT 11.6 SECONDS (9.7-12.2) 06/16/18 19:57 INR 1.1 06/16/18 19:57 - Constitutional Appears: Non-toxic, No Acute Distress - Eye Exam Eye Exam: EOMI, PERRL - ENT Exam ENT Exam: Mucous Membranes Moist - Respiratory Exam Respiratory Exam: Clear to Ausculation Bilateral. absent: Rales, Rhonchi, Wheezes - Cardiovascular Exam Cardiovascular Exam: RRR, +S1, +S2 - GI/Abdominal Exam GI & Abdominal Exam: Soft, Normal Bowel Sounds. absent: Distended, Firm, Guarding, Rigid, Tenderness, Organomegaly - Extremities Exam Extremities Exam: Normal Inspection. absent: Pedal Edema - Neurological Exam Neurological Exam: Alert, Awake, Oriented x3 - Psychiatric Exam Psychiatric exam: Normal Affect, Normal Mood - Skin Skin Exam: Dry, Warm Assessment and Plan - Assessment and Plan (Free Text) Assessment: Patient is a 42yo male with PMHx significant for alcohol-induced pancreatitis, type 2 DM, HTN, PUD, polysubstance abuse (EtOH/cocaine/heroin/benzodiazepines/tobacco) who presented to the hospital for alcohol detox -Dysphagia 2/2 esophageal stricture - suspect peptic stricture -Odynophagia 2/2 above -Grade D esophagitis -Unintentional weight loss -Polysubstance abuse Plan: -Pathology report reviewed, no evidence for malignancy/infection in biopsies obtained -Suspect peptic stricture and severe erosive esophagitis -Continue PPI with Pantoprazole 40mg PO BID -Repeat endoscopy in 4-6 weeks to check healing and for consideration for dilation of stricture -Will need supplemental nutrition source, PEG planned for surgical placement on Saturday -Continue liquid diet with Ensure supplementation -Social service assistance recommended given need for placement, plan for PEG insertion -Check CT Chest with IV contrast <Smith Jasso - Last Filed: 06/20/18 13:51> Objective - Vital Signs/Intake and Output Vital Signs (last 24 hours): Temp Pulse Resp BP Pulse Ox 97.8 F 85 20 146/99 H 99 06/20/18 07:37 06/20/18 07:37 06/20/18 07:37 06/20/18 07:37 06/20/18 07:37 Intake and Output: 06/20/18 06/20/18 06:59 18:59 Intake Total 1200 Balance 1200 - Medications Medications: Current Medications Al Hydrox/Mg Hydrox/Simethicone (Maalox 30 Ml) 30 ml PO Q6H PRN PRN Reason: Indigestion / Heartburn Last Admin: 06/15/18 15:48 Dose: 30 ml Clonidine HCl (Catapres) 0.1 mg PO Q4H PRN PRN Reason: Symptoms of alcohol withdrawl Last Admin: 06/18/18 10:22 Dose: 0.1 mg Cyclobenzaprine HCl (Flexeril) 5 mg PO TIDAC [facility] Last Admin: 06/20/18 13:07 Dose: 5 mg Folic Acid (Folic Acid) 1 mg PO DAILY [facility] Last Admin: 06/20/18 09:18 Dose: 1 mg Gabapentin (Neurontin) 300 mg PO BID [facility] Last Admin: 06/20/18 09:26 Dose: 300 mg Glimepiride (Amaryl) 4 mg PO BID [facility] Last Admin: 06/18/18 17:35 Dose: 4 mg Hydroxyzine HCl (Atarax) 50 mg PO Q6H PRN PRN Reason: Anxiety Last Admin: 06/15/18 21:24 Dose: 50 mg Dextrose/Sodium Chloride (Dextrose 5%/0.45% Ns 1000 Ml) 1,000 mls @ 75 mls/hr IV .[id number] [facility] Last Admin: 06/20/18 06:53 Dose: 75 mls/hr Insulin Aspart (Novolog) 0 unit SC [facility]; Protocol Last Admin: 06/20/18 09:37 Dose: Not Given Lorazepam (Ativan) 0.5 mg IVP HS PRN PRN Reason: Insomnia Magnesium Oxide (Mag-Ox) 400 mg PO BID [facility] Last Admin: 06/20/18 09:24 Dose: 400 mg Metformin HCl (Glucophage) 1,000 mg PO BID [facility] Last Admin: 06/20/18 09:36 Dose: Not Given Mirtazapine (Remeron) 15 mg PO HS [facility] Last Admin: 06/19/18 22:02 Dose: 15 mg Multivitamins (Hexavitamin) 1 tab PO DAILY [facility] Last Admin: 06/20/18 09:27 Dose: 1 tab Nicotine (Nicoderm Cq) 1 patch TD DAILY [facility] Last Admin: 06/20/18 09:30 Dose: 1 patch Ondansetron HCl (Zofran Inj) 4 mg IVP Q8 PRN PRN Reason: Nausea/Vomiting Last Admin: 06/19/18 21:27 Dose: 4 mg Pantoprazole Sodium (Protonix Inj) 40 mg IVP Q12H [facility] Last Admin: 06/20/18 09:22 Dose: 40 mg Sitagliptin Phosphate (Januvia) 25 mg PO DAILY [facility] Last Admin: 06/20/18 09:16 Dose: 25 mg Thiamine HCl (Vitamin B1 Tab) 100 mg PO DAILY [facility] Last Admin: 06/20/18 09:22 Dose: 100 mg Trazodone HCl (Desyrel) 100 mg PO HS PRN PRN Reason: Insomnia Last Admin: 06/19/18 21:37 Dose: 100 mg - Labs Labs: 06/19/18 07:04 06/19/18 07:04 PT 11.6 SECONDS (9.7-12.2) 06/16/18 19:57 INR 1.1 06/16/18 19:57 Attending/Attestation - Attestation I have personally seen and examined this patient.: Yes I have fully participated in the care of the patient.: Yes I have reviewed all pertinent clinical information, including history, physical exam and plan: Yes Notes (Text): 06/20/18 13:49 I have seen and examined patient with GI fellow. No acute events overnight, he is seen resting in bed comfortably. He denies abdominal pain, nausea, vomiting, diarrhea, fever/chills. Tolerating PO liquids without difficulty. DM/HTN ETOH abuse Dysphagia - s/p incomplete EGD x 2 due to mid/distal esophageal stricture, unable to be traversed - Liquid diet as tolerated - Awaiting EGD biopsy results - Obtain repeat CT chest with contrast - Surgical team planning for feeding tube placement for ongoing nutritional support - Continue with PPI therapy - Will monitor patient clinical course
[2018-06-20] MEDS: Magnesium Oxide 400 mg Tab UD PO SCH ×2 (09:24→17:20)
[2018-06-20] MEDS: Multiple Vitamins Tab PO SCH (09:27)
[2018-06-20] MEDS: (Novolog) Insulin Aspart, Recombinant 100 u/ml 10 ml vial SC SCH ×3 (09:37→22:13)
[2018-06-20] MEDS ORDERED: Iodixanol 320 MG/ML 100 ML BOTTLE IV ONE (15:22)
--- NOTE | 2018-06-20 17:41 | CT ---
Date of service: 06/20/2018 PROCEDURE: CT Chest with contrast HISTORY: Dysphagia COMPARISON: Comparison made with CT noncontrast CT chest dated 06/18/2018. The TECHNIQUE: Contiguous axial images were obtained through the chest with intravenous contrast enhancement. Sagittal and coronal reconstructions were performed. IV contrast: Radiation dose: Total exam DLP = 276.04 mGy-cm. This CT exam was performed using one or more of the following dose reduction techniques: Automated exposure control, adjustment of the mA and/or kV according to patient size, and/or use of iterative reconstruction technique. FINDINGS: LUNGS: Mild minor passive/dependent type atelectasis seen both posterior lower lung zones right greater than left. No acute consolidation. No effusion or pneumothorax MEDIASTINUM: Unremarkable thoracic aorta. No aneurysm or dissection. Ascending thoracic aorta measures approximately 3.0 cm and descending thoracic aorta measures approximately 2.2 cm.No significant aortic atherosclerotic calcification or mural plaque present. Pulmonary trunk measures approximately 2.35 cm. No significant mediastinal or hilar adenopathy. Trachea midline and patent with no large central endoluminal lesions. Air is seen throughout most of the proximal esophagus.. Redemonstrated is mild wall thickening of the mid to distal esophagus extending from the inferior margin of the aortic arch to the EG junction. Consider follow-up endoscopy if not recently performed. PLEURA: No effusion or pneumothorax as above.. BONES: Redemonstrated is an anterior wedge compression fracture of the T7 with mild compression deformity superior T9 segment. Clinical correlation with history recommended. UPPER ABDOMEN: The gallbladder appears incompletely distended which presumably in part accounts for thick-walled appearance. No obvious intraluminal gallbladder calculi seen of within the visualized portions of the gallbladder. Mild fatty hepatic infiltration. There is also more localized fatty infiltration left lobe liver adjacent to the fissure. Nodular enlargement both adrenal glands OTHER FINDINGS: Minor bilateral gynecomastia changes are present. IMPRESSION: There is mild wall thickening mid to distal esophagus of uncertain etiology. Rule out esophagitis versus stricture of uncertain etiology. Follow-up endoscopy recommended if not recently performed. Minor passive/dependent type atelectasis. Redemonstrated is an anterior wedge compression fracture of the T7 with mild compression deformity superior T9 segment. Clinical correlation with history recommended. Minor changes of gynecomastia. Nodular enlargement both adrenal glands.
--- NOTE | 2018-06-20 18:28 | CP.PCM.PN ---
Subjective - Date & Time of Evaluation Date of Evaluation: 06/20/18 Time of Evaluation: 07:30 - Subjective Subjective: clinically same Objective - Vital Signs/Intake and Output Vital Signs (last 24 hours): Temp Pulse Resp BP Pulse Ox 98.1 F 91 H 20 135/80 97 06/20/18 16:00 06/20/18 16:00 06/20/18 16:00 06/20/18 16:00 06/20/18 16:00 Intake and Output: 06/20/18 06/20/18 06:59 18:59 Intake Total 1200 1600 Balance 1200 1600 - Medications Medications: Current Medications Al Hydrox/Mg Hydrox/Simethicone (Maalox 30 Ml) 30 ml PO Q6H PRN PRN Reason: Indigestion / Heartburn Last Admin: 06/15/18 15:48 Dose: 30 ml Clonidine HCl (Catapres) 0.1 mg PO Q4H PRN PRN Reason: Symptoms of alcohol withdrawl Last Admin: 06/18/18 10:22 Dose: 0.1 mg Cyclobenzaprine HCl (Flexeril) 5 mg PO TIDAC [facility] Last Admin: 06/20/18 17:21 Dose: 5 mg Folic Acid (Folic Acid) 1 mg PO DAILY [facility] Last Admin: 06/20/18 09:18 Dose: 1 mg Gabapentin (Neurontin) 300 mg PO BID [facility] Last Admin: 06/20/18 17:13 Dose: 300 mg Glimepiride (Amaryl) 4 mg PO BID [facility] Last Admin: 06/18/18 17:35 Dose: 4 mg Hydroxyzine HCl (Atarax) 50 mg PO Q6H PRN PRN Reason: Anxiety Last Admin: 06/15/18 21:24 Dose: 50 mg Dextrose/Sodium Chloride (Dextrose 5%/0.45% Ns 1000 Ml) 1,000 mls @ 75 mls/hr IV .[id number] [facility] Last Admin: 06/20/18 17:01 Dose: Not Given Insulin Aspart (Novolog) 0 unit SC ACHS [facility]; Protocol Last Admin: 06/20/18 17:19 Dose: 3 units Lorazepam (Ativan) 0.5 mg IVP HS PRN PRN Reason: Insomnia Magnesium Oxide (Mag-Ox) 400 mg PO BID [facility] Last Admin: 06/20/18 17:20 Dose: 400 mg Metformin HCl (Glucophage) 1,000 mg PO BID [facility] Last Admin: 06/20/18 17:14 Dose: 1,000 mg Mirtazapine (Remeron) 15 mg PO HS [facility] Last Admin: 06/19/18 22:02 Dose: 15 mg Multivitamins (Hexavitamin) 1 tab PO DAILY [facility] Last Admin: 06/20/18 09:27 Dose: 1 tab Nicotine (Nicoderm Cq) 1 patch TD DAILY [facility] Last Admin: 06/20/18 09:30 Dose: 1 patch Ondansetron HCl (Zofran Inj) 4 mg IVP Q8 PRN PRN Reason: Nausea/Vomiting Last Admin: 06/20/18 16:40 Dose: 4 mg Pantoprazole Sodium (Protonix Inj) 40 mg IVP Q12H [facility] Last Admin: 06/20/18 09:22 Dose: 40 mg Sitagliptin Phosphate (Januvia) 25 mg PO DAILY [facility] Last Admin: 06/20/18 09:16 Dose: 25 mg Thiamine HCl (Vitamin B1 Tab) 100 mg PO DAILY [facility] Last Admin: 06/20/18 09:22 Dose: 100 mg Trazodone HCl (Desyrel) 100 mg PO HS PRN PRN Reason: Insomnia Last Admin: 06/19/18 21:37 Dose: 100 mg - Labs Labs: 06/19/18 07:04 06/19/18 07:04 PT 11.6 SECONDS (9.7-12.2) 06/16/18 19:57 INR 1.1 06/16/18 19:57 - Constitutional Appears: Well - Head Exam Head Exam: ATRAUMATIC, NORMAL INSPECTION, NORMOCEPHALIC - Eye Exam Eye Exam: EOMI, Normal appearance, PERRL Pupil Exam: NORMAL ACCOMODATION, PERRL - ENT Exam ENT Exam: Mucous Membranes Moist, Normal Exam - Neck Exam Neck Exam: Full ROM, Normal Inspection. absent: Lymphadenopathy - Respiratory Exam Respiratory Exam: Decreased Breath Sounds - Cardiovascular Exam Cardiovascular Exam: REGULAR RHYTHM, +S1, +S2 - GI/Abdominal Exam GI & Abdominal Exam: Soft, Diminished Bowel Sounds - Rectal Exam Rectal Exam: Deferred Assessment and Plan (1) Alcohol abuse Status: Acute (2) Alcohol withdrawal Status: Acute (3) Airway compromise Status: Acute (4) Alcohol intoxication Status: Acute (5) Alcohol use disorder, severe, dependence Status: Acute (6) Alcoholic pancreatitis Status: Acute (7) Colitis Status: Acute (8) DKA (diabetic ketoacidoses) Status: Acute (9) Dehydration Status: Acute (10) Esophagitis Status: Acute (11) Hyperglycemia Status: Acute (12) Hypokalemia Status: Acute (13) Hyponatremia Status: Acute (14) Seizure Status: Acute (15) Throat pain in adult Status: Acute (16) Upper gastrointestinal hemorrhage Status: Acute (17) Vomiting Status: Acute
[2018-06-21] MEDS: Dextrose 5%/0.45% NS 1,000 ML IV SCH ×2 (06:07→19:55)
[2018-06-21] MEDS: (Novolog) Insulin Aspart, Recombinant 100 u/ml 10 ml vial SC SCH ×4 (08:30→22:07)
[2018-06-21] MEDS: Multiple Vitamins Tab PO SCH (09:38)
[2018-06-21] MEDS: Magnesium Oxide 400 mg Tab UD PO SCH ×2 (09:38→17:18)
--- NOTE | 2018-06-21 11:48 | CP.PCM.PN ---
<Gina Dean - Last Filed: 06/21/18 11:45> Subjective - Date & Time of Evaluation Date of Evaluation: 06/21/18 Time of Evaluation: 08:00 - Subjective Subjective: Surgery: Dr. Fitzpatrick Pt seen and examined. No acute overnight events. Pt states he feels well and denies complaints. States he's tolerating his liquid diet and denies nausea/vomiting, but per discussion with nursing pt does have episodes of vomiting after consuming large amounts of liquids. Denies fevers/chills. Objective - Vital Signs/Intake and Output Vital Signs (last 24 hours): Temp Pulse Resp BP Pulse Ox 97.5 F L 90 20 135/100 H 95 06/21/18 08:26 06/21/18 08:26 06/21/18 08:26 06/21/18 08:26 06/21/18 08:26 Intake and Output: 06/21/18 06/21/18 06:59 18:59 Intake Total 2100 1800 Balance 2100 1800 - Medications Medications: Current Medications Al Hydrox/Mg Hydrox/Simethicone (Maalox 30 Ml) 30 ml PO Q6H PRN PRN Reason: Indigestion / Heartburn Last Admin: 06/15/18 15:48 Dose: 30 ml Clonidine HCl (Catapres) 0.1 mg PO Q4H PRN PRN Reason: Symptoms of alcohol withdrawl Last Admin: 06/18/18 10:22 Dose: 0.1 mg Cyclobenzaprine HCl (Flexeril) 5 mg PO TIDAC ON LICENSE OF [facility] Last Admin: 06/21/18 07:03 Dose: 5 mg Folic Acid (Folic Acid) 1 mg PO DAILY ON [facility] OF [facility] Last Admin: 06/21/18 09:51 Dose: Not Given Gabapentin (Neurontin) 300 mg PO BID ON LICENSE OF [facility] Last Admin: 06/21/18 09:38 Dose: 300 mg Glimepiride (Amaryl) 4 mg PO BID ON LICENSE OF [facility] Last Admin: 06/18/18 17:35 Dose: 4 mg Hydroxyzine HCl (Atarax) 50 mg PO Q6H PRN PRN Reason: Anxiety Last Admin: 06/15/18 21:24 Dose: 50 mg Dextrose/Sodium Chloride (Dextrose 5%/0.45% Ns 1000 Ml) 1,000 mls @ 75 mls/hr IV .[id number] ON LICENSE OF [facility] Last Admin: 06/21/18 06:07 Dose: 75 mls/hr Insulin Aspart (Novolog) 0 unit SC ACHS ON LICENSE OF [facility]; Protocol Last Admin: 06/21/18 08:30 Dose: Not Given Lorazepam (Ativan) 0.5 mg IVP HS PRN PRN Reason: Insomnia Magnesium Oxide (Mag-Ox) 400 mg PO BID ON LICENSE OF [facility] Last Admin: 06/21/18 09:38 Dose: 400 mg Metformin HCl (Glucophage) 1,000 mg PO BID ON LICENSE OF [facility] Last Admin: 06/21/18 09:38 Dose: Not Given Mirtazapine (Remeron) 15 mg PO HS ON LICENSE OF [facility] Last Admin: 06/20/18 22:15 Dose: 15 mg Multivitamins (Hexavitamin) 1 tab PO DAILY ON [facility] OF [facility] Last Admin: 06/21/18 09:38 Dose: Not Given Nicotine (Nicoderm Cq) 1 patch TD DAILY ON [facility] OF [facility] Last Admin: 06/21/18 09:38 Dose: 1 patch Ondansetron HCl (Zofran Inj) 4 mg IVP Q8 PRN PRN Reason: Nausea/Vomiting Last Admin: 06/21/18 08:30 Dose: 4 mg Pantoprazole Sodium (Protonix Inj) 40 mg IVP Q12H ON [facility] OF [facility] Last Admin: 06/21/18 08:53 Dose: 40 mg Sitagliptin Phosphate (Januvia) 25 mg PO DAILY ON [facility] OF [facility] Last Admin: 06/21/18 09:38 Dose: Not Given Thiamine HCl (Vitamin B1 Tab) 100 mg PO DAILY ON [facility] OF [facility] Last Admin: 06/21/18 09:38 Dose: 100 mg Trazodone HCl (Desyrel) 100 mg PO HS PRN PRN Reason: Insomnia Last Admin: 06/19/18 21:37 Dose: 100 mg - Labs Labs: 06/19/18 07:04 06/19/18 07:04 PT 11.6 SECONDS (9.7-12.2) 06/16/18 19:57 INR 1.1 06/16/18 19:57 - Constitutional Appears: Well, No Acute Distress - Head Exam Head Exam: ATRAUMATIC, NORMOCEPHALIC - Eye Exam Eye Exam: Normal appearance - ENT Exam ENT Exam: Mucous Membranes Moist - Respiratory Exam Respiratory Exam: NORMAL BREATHING PATTERN - Cardiovascular Exam Cardiovascular Exam: RRR - GI/Abdominal Exam GI & Abdominal Exam: Soft. absent: Tenderness - Neurological Exam Neurological Exam: Alert, Awake, Oriented x3 - Skin Skin Exam: Dry, Warm Assessment and Plan - Assessment and Plan (Free Text) Assessment: 42M with partially obstructing Esophageal mass/stricture Plan: - plan for feeding tube on saturday - cont liquids in the meantime - optimize for OR - d/w Dr. Amari Dean <Derrick Fitzpatrick - Last Filed: 06/22/18 16:57> Objective - Vital Signs/Intake and Output Vital Signs (last 24 hours): Temp Pulse Resp BP Pulse Ox 99 F 107 H 20 107/77 96 06/22/18 16:00 06/22/18 16:00 06/22/18 16:00 06/22/18 16:00 06/22/18 16:00 Intake and Output: 06/22/18 06/22/18 06:59 18:59 Intake Total 2140 2000 Output Total 1000 Balance 1140 2000 - Medications Medications: Current Medications Al Hydrox/Mg Hydrox/Simethicone (Maalox 30 Ml) 30 ml PO Q6H PRN PRN Reason: Indigestion / Heartburn Last Admin: 06/15/18 15:48 Dose: 30 ml Clonidine HCl (Catapres) 0.1 mg PO Q4H PRN PRN Reason: Symptoms of alcohol withdrawl Last Admin: 06/18/18 10:22 Dose: 0.1 mg Cyclobenzaprine HCl (Flexeril) 5 mg PO TIDAC ON [facility] OF [facility] Last Admin: 06/22/18 12:09 Dose: 5 mg Folic Acid (Folic Acid) 1 mg PO DAILY ON [facility] Last Admin: 06/22/18 09:54 Dose: 1 mg Gabapentin (Neurontin) 300 mg PO BID ON [facility] OF [facility] Last Admin: 06/22/18 09:54 Dose: 300 mg Glimepiride (Amaryl) 4 mg PO BID ON [facility] Last Admin: 06/18/18 17:35 Dose: 4 mg Hydroxyzine HCl (Atarax) 50 mg PO Q6H PRN PRN Reason: Anxiety Last Admin: 06/15/18 21:24 Dose: 50 mg Sodium Chloride (Sodium Chloride 0.9%) 1,000 mls @ 125 mls/hr IV .Q8H ON LICENSE OF [facility] Last Admin: 06/22/18 11:59 Dose: 125 mls/hr Insulin Aspart (Novolog) 0 unit SC ACHS ON LICENSE OF [facility]; Protocol Last Admin: 06/22/18 12:09 Dose: 2 units Lorazepam (Ativan) 0.5 mg IVP HS PRN PRN Reason: Insomnia Magnesium Oxide (Mag-Ox) 400 mg PO BID ON [facility] OF [facility] Last Admin: 06/22/18 09:54 Dose: 400 mg Metformin HCl (Glucophage) 1,000 mg PO BID ON [facility] Last Admin: 06/22/18 09:54 Dose: 1,000 mg Mirtazapine (Remeron) 15 mg PO HS ON [facility] Last Admin: 06/21/18 22:05 Dose: 15 mg Multivitamins (Hexavitamin) 1 tab PO DAILY ON [facility] Last Admin: 06/22/18 09:55 Dose: 1 tab Nicotine (Nicoderm Cq) 1 patch TD DAILY [facility] Last Admin: 06/22/18 09:55 Dose: 1 patch Ondansetron HCl (Zofran Inj) 4 mg IVP Q8 PRN PRN Reason: Nausea/Vomiting Last Admin: 06/22/18 09:55 Dose: 4 mg Pantoprazole Sodium (Protonix Inj) 40 mg IVP Q12H ON [facility] Last Admin: 06/22/18 08:27 Dose: 40 mg Sitagliptin Phosphate (Januvia) 25 mg PO DAILY ON [facility] Last Admin: 06/22/18 09:54 Dose: 25 mg Thiamine HCl (Vitamin B1 Tab) 100 mg PO DAILY ON [facility] Last Admin: 06/22/18 09:54 Dose: 100 mg Trazodone HCl (Desyrel) 100 mg PO HS PRN PRN Reason: Insomnia Last Admin: 06/21/18 22:05 Dose: 100 mg - Labs Labs: 06/22/18 08:05 06/22/18 08:05 PT 11.6 SECONDS (9.7-12.2) 06/16/18 19:57 INR 1.1 06/16/18 19:57 Attending/Attestation - Attestation I have personally seen and examined this patient.: Yes I have fully participated in the care of the patient.: Yes I have reviewed all pertinent clinical information, including history, physical exam and plan: Yes Notes (Text): Pt was seen and examined at bedside Agree with above note and assessment Pt is improving clinically Medical clearance EKG, CXR Consent Plan d.w pt in detail. Risk and benefit explained in detail.
--- NOTE | 2018-06-21 18:12 | CP.PCM.PN ---
Subjective - Date & Time of Evaluation Date of Evaluation: 06/21/18 Time of Evaluation: 07:15 - Subjective Subjective: clinically same Objective - Vital Signs/Intake and Output Vital Signs (last 24 hours): Temp Pulse Resp BP Pulse Ox 98.2 F 108 H 20 126/88 97 06/21/18 16:00 06/21/18 16:00 06/21/18 16:00 06/21/18 16:00 06/21/18 16:00 Intake and Output: 06/21/18 06/21/18 06:59 18:59 Intake Total 2100 3900 Balance 2100 3900 - Medications Medications: Current Medications Al Hydrox/Mg Hydrox/Simethicone (Maalox 30 Ml) 30 ml PO Q6H PRN PRN Reason: Indigestion / Heartburn Last Admin: 06/15/18 15:48 Dose: 30 ml Clonidine HCl (Catapres) 0.1 mg PO Q4H PRN PRN Reason: Symptoms of alcohol withdrawl Last Admin: 06/18/18 10:22 Dose: 0.1 mg Cyclobenzaprine HCl (Flexeril) 5 mg PO TIDAC [facility] Last Admin: 06/21/18 17:18 Dose: 5 mg Folic Acid (Folic Acid) 1 mg PO DAILY [facility] Last Admin: 06/21/18 09:51 Dose: Not Given Gabapentin (Neurontin) 300 mg PO BID [facility] Last Admin: 06/21/18 17:18 Dose: 300 mg Glimepiride (Amaryl) 4 mg PO BID [facility] Last Admin: 06/18/18 17:35 Dose: 4 mg Hydroxyzine HCl (Atarax) 50 mg PO Q6H PRN PRN Reason: Anxiety Last Admin: 06/15/18 21:24 Dose: 50 mg Dextrose/Sodium Chloride (Dextrose 5%/0.45% Ns 1000 Ml) 1,000 mls @ 75 mls/hr IV .[id number] [facility] Last Admin: 06/21/18 06:07 Dose: 75 mls/hr Insulin Aspart (Novolog) 0 unit SC [facility]; Protocol Last Admin: 06/21/18 16:30 Dose: 5 units Lorazepam (Ativan) 0.5 mg IVP HS PRN PRN Reason: Insomnia Magnesium Oxide (Mag-Ox) 400 mg PO BID [facility] Last Admin: 06/21/18 17:18 Dose: 400 mg Metformin HCl (Glucophage) 1,000 mg PO BID [facility] Last Admin: 06/21/18 17:18 Dose: 1,000 mg Mirtazapine (Remeron) 15 mg PO HS [facility] Last Admin: 06/20/18 22:15 Dose: 15 mg Multivitamins (Hexavitamin) 1 tab PO DAILY [facility] Last Admin: 06/21/18 09:38 Dose: Not Given Nicotine (Nicoderm Cq) 1 patch TD DAILY [facility] Last Admin: 06/21/18 09:38 Dose: 1 patch Ondansetron HCl (Zofran Inj) 4 mg IVP Q8 PRN PRN Reason: Nausea/Vomiting Last Admin: 06/21/18 08:30 Dose: 4 mg Pantoprazole Sodium (Protonix Inj) 40 mg IVP Q12H [facility] Last Admin: 06/21/18 08:53 Dose: 40 mg Sitagliptin Phosphate (Januvia) 25 mg PO DAILY [facility] Last Admin: 06/21/18 09:38 Dose: Not Given Thiamine HCl (Vitamin B1 Tab) 100 mg PO DAILY [facility] Last Admin: 06/21/18 09:38 Dose: 100 mg Trazodone HCl (Desyrel) 100 mg PO HS PRN PRN Reason: Insomnia Last Admin: 06/19/18 21:37 Dose: 100 mg - Labs Labs: 06/19/18 07:04 06/19/18 07:04 PT 11.6 SECONDS (9.7-12.2) 06/16/18 19:57 INR 1.1 06/16/18 19:57 - Constitutional Appears: Well - Head Exam Head Exam: ATRAUMATIC, NORMAL INSPECTION, NORMOCEPHALIC - Eye Exam Eye Exam: EOMI, Normal appearance, PERRL Pupil Exam: NORMAL ACCOMODATION, PERRL - ENT Exam ENT Exam: Mucous Membranes Moist, Normal Exam - Neck Exam Neck Exam: Full ROM, Normal Inspection. absent: Lymphadenopathy - Respiratory Exam Respiratory Exam: Decreased Breath Sounds - Cardiovascular Exam Cardiovascular Exam: REGULAR RHYTHM, +S1, +S2 - GI/Abdominal Exam GI & Abdominal Exam: Soft, Diminished Bowel Sounds - Rectal Exam Rectal Exam: Deferred Assessment and Plan (1) Alcohol abuse Status: Acute (2) Alcohol withdrawal Status: Acute (3) Airway compromise Status: Acute (4) Alcohol intoxication Status: Acute (5) Alcohol use disorder, severe, dependence Status: Acute (6) Alcoholic pancreatitis Status: Acute (7) Colitis Status: Acute (8) DKA (diabetic ketoacidoses) Status: Acute (9) Dehydration Status: Acute (10) Esophagitis Status: Acute (11) Hyperglycemia Status: Acute (12) Hypokalemia Status: Acute (13) Hyponatremia Status: Acute (14) Seizure Status: Acute (15) Throat pain in adult Status: Acute (16) Upper gastrointestinal hemorrhage Status: Acute (17) Vomiting Status: Acute
--- NOTE | 2018-06-22 08:23 | CP.PCM.PN ---
<Adam Pedroza - Last Filed: 06/22/18 08:20> Subjective - Date & Time of Evaluation Date of Evaluation: 06/22/18 Time of Evaluation: 08:20 - Subjective Subjective: SURGERY NOTE FOR DR. FITZPATRICK 42M seen and examined at bedside. No acute events overnight. Patient tolerating having clear diet and also spitting up. Objective - Vital Signs/Intake and Output Vital Signs (last 24 hours): Temp Pulse Resp BP Pulse Ox 98.1 F 103 H 20 112/79 98 06/22/18 08:09 06/22/18 08:09 06/22/18 08:09 06/22/18 08:09 06/22/18 08:09 Intake and Output: 06/22/18 06/22/18 06:59 18:59 Intake Total 2140 Output Total 1000 Balance 1140 - Medications Medications: Current Medications Al Hydrox/Mg Hydrox/Simethicone (Maalox 30 Ml) 30 ml PO Q6H PRN PRN Reason: Indigestion / Heartburn Last Admin: 06/15/18 15:48 Dose: 30 ml Clonidine HCl (Catapres) 0.1 mg PO Q4H PRN PRN Reason: Symptoms of alcohol withdrawl Last Admin: 06/18/18 10:22 Dose: 0.1 mg Cyclobenzaprine HCl (Flexeril) 5 mg PO TIDAC [facility] Last Admin: 06/22/18 06:34 Dose: 5 mg Folic Acid (Folic Acid) 1 mg PO DAILY [facility] Last Admin: 06/21/18 09:51 Dose: Not Given Gabapentin (Neurontin) 300 mg PO BID [facility] Last Admin: 06/21/18 17:18 Dose: 300 mg Glimepiride (Amaryl) 4 mg PO BID [facility] Last Admin: 06/18/18 17:35 Dose: 4 mg Hydroxyzine HCl (Atarax) 50 mg PO Q6H PRN PRN Reason: Anxiety Last Admin: 06/15/18 21:24 Dose: 50 mg Dextrose/Sodium Chloride (Dextrose 5%/0.45% Ns 1000 Ml) 1,000 mls @ 75 mls/hr IV .[id number] [facility] Last Admin: 06/21/18 19:55 Dose: 75 mls/hr Insulin Aspart (Novolog) 0 unit SC ACHS [facility]; Protocol Last Admin: 06/21/18 22:07 Dose: Not Given Lorazepam (Ativan) 0.5 mg IVP HS PRN PRN Reason: Insomnia Magnesium Oxide (Mag-Ox) 400 mg PO BID [facility] Last Admin: 06/21/18 17:18 Dose: 400 mg Metformin HCl (Glucophage) 1,000 mg PO BID [facility] Last Admin: 06/21/18 17:18 Dose: 1,000 mg Mirtazapine (Remeron) 15 mg PO HS [facility] Last Admin: 06/21/18 22:05 Dose: 15 mg Multivitamins (Hexavitamin) 1 tab PO DAILY [facility] Last Admin: 06/21/18 09:38 Dose: Not Given Nicotine (Nicoderm Cq) 1 patch TD DAILY [facility] Last Admin: 06/21/18 09:38 Dose: 1 patch Ondansetron HCl (Zofran Inj) 4 mg IVP Q8 PRN PRN Reason: Nausea/Vomiting Last Admin: 06/22/18 04:30 Dose: 4 mg Pantoprazole Sodium (Protonix Inj) 40 mg IVP Q12H [facility] Last Admin: 06/21/18 20:30 Dose: 40 mg Sitagliptin Phosphate (Januvia) 25 mg PO DAILY [facility] Last Admin: 06/21/18 09:38 Dose: Not Given Thiamine HCl (Vitamin B1 Tab) 100 mg PO DAILY [facility] Last Admin: 06/21/18 09:38 Dose: 100 mg Trazodone HCl (Desyrel) 100 mg PO HS PRN PRN Reason: Insomnia Last Admin: 06/21/18 22:05 Dose: 100 mg - Labs Labs: 06/19/18 07:04 06/19/18 07:04 PT 11.6 SECONDS (9.7-12.2) 06/16/18 19:57 INR 1.1 06/16/18 19:57 - Constitutional Appears: Non-toxic, No Acute Distress - Respiratory Exam Respiratory Exam: Clear to Ausculation Bilateral, NORMAL BREATHING PATTERN - Cardiovascular Exam Cardiovascular Exam: REGULAR RHYTHM, +S1, +S2 - GI/Abdominal Exam GI & Abdominal Exam: Soft. absent: Distended, Guarding, Tenderness, Rebound - Extremities Exam Extremities Exam: absent: Pedal Edema, Tenderness - Neurological Exam Neurological Exam: Alert, Awake Assessment and Plan - Assessment and Plan (Free Text) Assessment: 42M presents with esophageal stricture Plan: - plan for surgical feeding tube on Saturday. - PreOp tonight. Further recs discuss with Dr. Amari Pedroza, PGY3 <Derrick Fitzpatrick - Last Filed: 06/22/18 16:58> Objective - Vital Signs/Intake and Output Vital Signs (last 24 hours): Temp Pulse Resp BP Pulse Ox 99 F 107 H 20 107/77 96 06/22/18 16:00 06/22/18 16:00 06/22/18 16:00 06/22/18 16:00 06/22/18 16:00 Intake and Output: 06/22/18 06/22/18 06:59 18:59 Intake Total 2140 1999 Output Total 1000 Balance 1140 1999 - Medications Medications: Current Medications Al Hydrox/Mg Hydrox/Simethicone (Maalox 30 Ml) 30 ml PO Q6H PRN PRN Reason: Indigestion / Heartburn Last Admin: 06/15/18 15:48 Dose: 30 ml Clonidine HCl (Catapres) 0.1 mg PO Q4H PRN PRN Reason: Symptoms of alcohol withdrawl Last Admin: 06/18/18 10:22 Dose: 0.1 mg Cyclobenzaprine HCl (Flexeril) 5 mg PO TIDAC [facility] Last Admin: 06/22/18 12:09 Dose: 5 mg Folic Acid (Folic Acid) 1 mg PO DAILY [facility] Last Admin: 06/22/18 09:54 Dose: 1 mg Gabapentin (Neurontin) 300 mg PO BID [facility] Last Admin: 06/22/18 09:54 Dose: 300 mg Glimepiride (Amaryl) 4 mg PO BID [facility] Last Admin: 06/18/18 17:35 Dose: 4 mg Hydroxyzine HCl (Atarax) 50 mg PO Q6H PRN PRN Reason: Anxiety Last Admin: 06/15/18 21:24 Dose: 50 mg Sodium Chloride (Sodium Chloride 0.9%) 1,000 mls @ 125 mls/hr IV .Q8H [facility] Last Admin: 06/22/18 11:59 Dose: 125 mls/hr Insulin Aspart (Novolog) 0 unit SC ACHS [facility]; Protocol Last Admin: 06/22/18 12:09 Dose: 2 units Lorazepam (Ativan) 0.5 mg IVP HS PRN PRN Reason: Insomnia Magnesium Oxide (Mag-Ox) 400 mg PO BID [facility] Last Admin: 06/22/18 09:54 Dose: 400 mg Metformin HCl (Glucophage) 1,000 mg PO BID [facility] Last Admin: 06/22/18 09:54 Dose: 1,000 mg Mirtazapine (Remeron) 15 mg PO HS [facility] Last Admin: 06/21/18 22:05 Dose: 15 mg Multivitamins (Hexavitamin) 1 tab PO DAILY [facility] Last Admin: 06/22/18 09:55 Dose: 1 tab Nicotine (Nicoderm Cq) 1 patch TD DAILY [facility] Last Admin: 06/22/18 09:55 Dose: 1 patch Ondansetron HCl (Zofran Inj) 4 mg IVP Q8 PRN PRN Reason: Nausea/Vomiting Last Admin: 06/22/18 09:55 Dose: 4 mg Pantoprazole Sodium (Protonix Inj) 40 mg IVP Q12H [facility] Last Admin: 06/22/18 08:27 Dose: 40 mg Sitagliptin Phosphate (Januvia) 25 mg PO DAILY [facility] Last Admin: 06/22/18 09:54 Dose: 25 mg Thiamine HCl (Vitamin B1 Tab) 100 mg PO DAILY [facility] Last Admin: 06/22/18 09:54 Dose: 100 mg Trazodone HCl (Desyrel) 100 mg PO HS PRN PRN Reason: Insomnia Last Admin: 06/21/18 22:05 Dose: 100 mg - Labs Labs: 06/22/18 08:05 06/22/18 08:05 PT 11.6 SECONDS (9.7-12.2) 06/16/18 19:57 INR 1.1 06/16/18 19:57 Attending/Attestation - Attestation I have fully participated in the care of the patient.: Yes I have reviewed all pertinent clinical information, including history, physical exam and plan: Yes Notes (Text): OR for G tube tomorrow Consent NPO ,IVF Avoid ASA, NSAIDS Plan d.w pt in detail.
[2018-06-22 08:26] LABS: MEAN CELL VOLUME 85.7 fL (80.0-94.0); MEAN CORPUSCULAR HEMOGLOBIN 28.1 pg (27.0-31.0); MEAN CORPUSCULAR HGB CONC 32.8 g/dL (33.0-37.0); RBC 4.97 Mil/uL (4.40-5.90); RED CELL DISTRIBUTION WIDTH 17.3 % (11.5-14.5); WHITE BLOOD COUNT 6.9 K/uL (4.8-10.8)
[2018-06-22] MEDS: (Novolog) Insulin Aspart, Recombinant 100 u/ml 10 ml vial SC SCH ×4 (08:27→21:35)
[2018-06-22 08:52] LABS: BLOOD UREA NITROGEN 3 mg/dL (9-20); CALCIUM 9.1 mg/dl (8.6-10.4); GFR NON-AFRICAN AMERICAN > 60
[2018-06-22] MEDS: Magnesium Oxide 400 mg Tab UD PO SCH ×2 (09:54→17:20)
[2018-06-22] MEDS: Multiple Vitamins Tab PO SCH (09:55)
[2018-06-22] MEDS: Dextrose 5%/0.45% NS 1,000 ML IV SCH (09:57)
[2018-06-22] MEDS: Sodium Chloride 0.9% 1,000 ML IV SCH ×2 (11:59→19:15)
--- NOTE | 2018-06-22 12:40 | CP.PCM.PN ---
Subjective - Date & Time of Evaluation Date of Evaluation: 06/22/18 Time of Evaluation: 07:30 - Subjective Subjective: clinically same Objective - Vital Signs/Intake and Output Vital Signs (last 24 hours): Temp Pulse Resp BP Pulse Ox 98.1 F 103 H 20 112/79 98 06/22/18 08:09 06/22/18 08:09 06/22/18 08:09 06/22/18 08:09 06/22/18 08:09 Intake and Output: 06/22/18 06/22/18 06:59 18:59 Intake Total 2140 Output Total 1000 Balance 1140 - Medications Medications: Current Medications Al Hydrox/Mg Hydrox/Simethicone (Maalox 30 Ml) 30 ml PO Q6H PRN PRN Reason: Indigestion / Heartburn Last Admin: 06/15/18 15:48 Dose: 30 ml Clonidine HCl (Catapres) 0.1 mg PO Q4H PRN PRN Reason: Symptoms of alcohol withdrawl Last Admin: 06/18/18 10:22 Dose: 0.1 mg Cyclobenzaprine HCl (Flexeril) 5 mg PO TIDAC [facility] Last Admin: 06/22/18 12:09 Dose: 5 mg Folic Acid (Folic Acid) 1 mg PO DAILY [facility] Last Admin: 06/22/18 09:54 Dose: 1 mg Gabapentin (Neurontin) 300 mg PO BID [facility] Last Admin: 06/22/18 09:54 Dose: 300 mg Glimepiride (Amaryl) 4 mg PO BID [facility] Last Admin: 06/18/18 17:35 Dose: 4 mg Hydroxyzine HCl (Atarax) 50 mg PO Q6H PRN PRN Reason: Anxiety Last Admin: 06/15/18 21:24 Dose: 50 mg Sodium Chloride (Sodium Chloride 0.9%) 1,000 mls @ 125 mls/hr IV .Q8H [facility] Last Admin: 06/22/18 11:59 Dose: 125 mls/hr [facility] Last Admin: 06/22/18 12:09 Dose: 2 units Lorazepam (Ativan) 0.5 mg IVP HS PRN PRN Reason: Insomnia Magnesium Oxide (Mag-Ox) 400 mg PO BID [facility] Last Admin: 06/22/18 09:54 Dose: 400 mg Metformin HCl (Glucophage) 1,000 mg PO BID [facility] Last Admin: 06/22/18 09:54 Dose: 1,000 mg Mirtazapine (Remeron) 15 mg PO HS [facility] Last Admin: 06/21/18 22:05 Dose: 15 mg Multivitamins (Hexavitamin) 1 tab PO DAILY [facility] Last Admin: 06/22/18 09:55 Dose: 1 tab Nicotine (Nicoderm Cq) 1 patch TD DAILY [facility] Last Admin: 06/22/18 09:55 Dose: 1 patch Ondansetron HCl (Zofran Inj) 4 mg IVP Q8 PRN PRN Reason: Nausea/Vomiting Last Admin: 06/22/18 09:55 Dose: 4 mg Pantoprazole Sodium (Protonix Inj) 40 mg IVP Q12H [facility] Last Admin: 06/22/18 08:27 Dose: 40 mg Sitagliptin Phosphate (Januvia) 25 mg PO DAILY [facility] Last Admin: 06/22/18 09:54 Dose: 25 mg Thiamine HCl (Vitamin B1 Tab) 100 mg PO DAILY [facility] Last Admin: 06/22/18 09:54 Dose: 100 mg Trazodone HCl (Desyrel) 100 mg PO HS PRN PRN Reason: Insomnia Last Admin: 06/21/18 22:05 Dose: 100 mg - Labs Labs: 06/22/18 08:05 06/22/18 08:05 PT 11.6 SECONDS (9.7-12.2) 06/16/18 19:57 INR 1.1 06/16/18 19:57 - Constitutional Appears: Well - Head Exam Head Exam: ATRAUMATIC, NORMAL INSPECTION, NORMOCEPHALIC - Eye Exam Eye Exam: EOMI, Normal appearance, PERRL Pupil Exam: NORMAL ACCOMODATION, PERRL - ENT Exam ENT Exam: Mucous Membranes Moist, Normal Exam - Neck Exam Neck Exam: Full ROM, Normal Inspection. absent: Lymphadenopathy - Respiratory Exam Respiratory Exam: Decreased Breath Sounds - Cardiovascular Exam Cardiovascular Exam: REGULAR RHYTHM, +S1, +S2 - GI/Abdominal Exam GI & Abdominal Exam: Diminished Bowel Sounds - Rectal Exam Rectal Exam: Deferred Assessment and Plan (1) Alcohol abuse Status: Acute (2) Alcohol withdrawal Status: Acute (3) Airway compromise Status: Acute (4) Alcohol intoxication Status: Acute (5) Alcohol use disorder, severe, dependence Status: Acute (6) Alcoholic pancreatitis Status: Acute (7) Colitis Status: Acute (8) DKA (diabetic ketoacidoses) Status: Acute (9) Dehydration Status: Acute (10) Esophagitis Status: Acute (11) Hyperglycemia Status: Acute (12) Hypokalemia Status: Acute (13) Hyponatremia Status: Acute (14) Seizure Status: Acute (15) Throat pain in adult Status: Acute (16) Upper gastrointestinal hemorrhage Status: Acute (17) Vomiting Status: Acute
[2018-06-23] MEDS: Sodium Chloride 0.9% 1,000 ML IV SCH ×3 (04:00→19:41)
[2018-06-23 06:44] LABS: BASO # 0.1 K/uL (0.0-0.2); BASO % 1.4 % (0.0-2.0); EOS # 0.2 K/uL (0.0-0.7); EOS % 2.7 % (0.0-4.0); HEMOGLOBIN 13.8 g/dL (12.0-18.0); LYMPH # 2.7 K/uL (1.0-4.3); MEAN CELL VOLUME 86.4 fL (80.0-94.0); MEAN CORPUSCULAR HEMOGLOBIN 27.4 pg (27.0-31.0); MEAN CORPUSCULAR HGB CONC 31.7 g/dL (33.0-37.0); MEAN PLATELET VOLUME 7.7 fL (7.2-11.7); MONO # 0.6 K/uL (0.0-0.8); MONO % 9.1 % (0.0-10.0); NEUT # 2.9 K/uL (1.8-7.0); NEUT % 44.8 % (50.0-75.0); RBC 5.04 Mil/uL (4.40-5.90); RED CELL DISTRIBUTION WIDTH 17.5 % (11.5-14.5); WHITE BLOOD COUNT 6.5 K/uL (4.8-10.8)
[2018-06-23 06:49] LABS: PROTHROMBIN TIME 10.4 SECONDS (9.7-12.2)
[2018-06-23 07:00] LABS: ALB/GLOB RATIO 1.1 (1.0-2.1); ALBUMIN 3.5 g/dL (3.5-5.0); ALT/SGPT 21 U/L (21-72); AST/SGOT 30 U/L (17-59); BLOOD UREA NITROGEN 4 mg/dL (9-20); GFR NON-AFRICAN AMERICAN > 60
[2018-06-23] MEDS: (Novolog) Insulin Aspart, Recombinant 100 u/ml 10 ml vial SC SCH ×4 (08:52→21:36)
[2018-06-23] MEDS: Multiple Vitamins Tab PO SCH (09:02)
[2018-06-23] MEDS: Magnesium Oxide 400 mg Tab UD PO SCH ×2 (09:03→19:40)
--- NOTE | 2018-06-23 14:10 | CP.PCM.PN ---
Subjective - Date & Time of Evaluation Date of Evaluation: 06/23/18 Time of Evaluation: 07:15 - Subjective Subjective: clinically same Objective - Vital Signs/Intake and Output Vital Signs (last 24 hours): Temp Pulse Resp BP Pulse Ox 97.4 F L 90 20 115/81 98 06/23/18 07:55 06/23/18 07:55 06/23/18 07:55 06/23/18 07:55 06/23/18 07:55 Intake and Output: 06/23/18 06/23/18 06:59 18:59 Intake Total 2440 Balance 2440 - Medications Medications: Current Medications Al Hydrox/Mg Hydrox/Simethicone (Maalox 30 Ml) 30 ml PO Q6H PRN PRN Reason: Indigestion / Heartburn Last Admin: 06/15/18 15:48 Dose: 30 ml Clonidine HCl (Catapres) 0.1 mg PO Q4H PRN PRN Reason: Symptoms of alcohol withdrawl Last Admin: 06/18/18 10:22 Dose: 0.1 mg Cyclobenzaprine HCl (Flexeril) 5 mg PO TIDAC [facility] Last Admin: 06/23/18 12:00 Dose: Not Given Folic Acid (Folic Acid) 1 mg PO DAILY [facility] Last Admin: 06/23/18 09:01 Dose: Not Given Gabapentin (Neurontin) 300 mg PO BID [facility] Last Admin: 06/23/18 09:03 Dose: Not Given Glimepiride (Amaryl) 4 mg PO BID [facility] Last Admin: 06/18/18 17:35 Dose: 4 mg Hydroxyzine HCl (Atarax) 50 mg PO Q6H PRN PRN Reason: Anxiety Last Admin: 06/15/18 21:24 Dose: 50 mg Sodium Chloride (Sodium Chloride 0.9%) 1,000 mls @ 125 mls/hr IV .Q8H [facility] Last Admin: 06/23/18 12:48 Dose: 125 mls/hr Insulin Aspart (Novolog) 0 unit SC [facility]; Protocol Last Admin: 06/23/18 12:46 Dose: Not Given Lorazepam (Ativan) 0.5 mg IVP HS PRN PRN Reason: Insomnia Magnesium Oxide (Mag-Ox) 400 mg PO BID [facility] Last Admin: 06/23/18 09:03 Dose: Not Given Metformin HCl (Glucophage) 1,000 mg PO BID [facility] Last Admin: 06/23/18 09:02 Dose: Not Given Mirtazapine (Remeron) 15 mg PO HS [facility] Last Admin: 06/22/18 21:36 Dose: 15 mg Multivitamins (Hexavitamin) 1 tab PO DAILY [facility] Last Admin: 06/23/18 09:02 Dose: Not Given Nicotine (Nicoderm Cq) 1 patch TD DAILY [facility] Last Admin: 06/23/18 09:15 Dose: 1 patch Ondansetron HCl (Zofran Inj) 4 mg IVP Q8 PRN PRN Reason: Nausea/Vomiting Last Admin: 06/23/18 05:42 Dose: 4 mg Pantoprazole Sodium (Protonix Inj) 40 mg IVP Q12H [facility] Last Admin: 06/23/18 09:15 Dose: 40 mg Sitagliptin Phosphate (Januvia) 25 mg PO DAILY [facility] Last Admin: 06/23/18 09:03 Dose: Not Given Thiamine HCl (Vitamin B1 Tab) 100 mg PO DAILY [facility] Last Admin: 06/23/18 09:03 Dose: Not Given Trazodone HCl (Desyrel) 100 mg PO HS PRN PRN Reason: Insomnia Last Admin: 06/22/18 21:33 Dose: 100 mg - Labs Labs: 06/23/18 06:24 06/23/18 06:24 PT 10.4 SECONDS (9.7-12.2) 06/23/18 06:24 INR 1.0 06/23/18 06:24 Assessment and Plan (1) Alcohol abuse Status: Acute (2) Alcohol withdrawal Status: Acute (3) Airway compromise Status: Acute (4) Alcohol intoxication Status: Acute (5) Alcohol use disorder, severe, dependence Status: Acute (6) Alcoholic pancreatitis Status: Acute (7) Colitis Status: Acute (8) DKA (diabetic ketoacidoses) Status: Acute (9) Dehydration Status: Acute (10) Esophagitis Status: Acute (11) Hyperglycemia Status: Acute (12) Hypokalemia Status: Acute (13) Hyponatremia Status: Acute (14) Seizure Status: Acute (15) Throat pain in adult Status: Acute (16) Upper gastrointestinal hemorrhage Status: Acute (17) Vomiting Status: Acute
[2018-06-23] MEDS ORDERED: ceFAZolin 1 gm in NS 2 GM/200 ML BAG IVPB ONE (15:57)
[2018-06-23] MEDS ORDERED: Lidocaine/Epinephrine 1% 1:100000 10 ML IJ ONE (15:58)
[2018-06-23] MEDS ORDERED: Bupivacaine HCl 0.25% PF (10 ml) Inj ONE (15:58)
[2018-06-23] MEDS ORDERED: Bupivacaine Liposomal Inj 20 ml INJ ONE (16:20)
[2018-06-23] MEDS ORDERED: Midazolam 2 MG/2 ML VIAL ONE (16:32)
[2018-06-23] MEDS ORDERED: Sodium Chloride 0.9% 40 ML IV ONE (16:33)
[2018-06-23] MEDS ORDERED: Rocuronium 10 mg/ml (5 ml) ONE (17:10)
[2018-06-23] MEDS ORDERED: Neostigmine 1:1000 (1 mg/ml) Inj ONE (17:29)
[2018-06-23] MEDS: HYDROmorphone 0.5 mg/0.5 ml ISec IVP PRN ×4 (18:12→19:23)
--- NOTE | 2018-06-23 18:20 | PCM.SURG1 ---
Surgeon's Initial Post Op Note - Surgeon's Notes Surgeon: Dr. Fitzpatrick Ssis Architect: Dr. Villanueva PGY-4, Everardo Gallo OMS-III Type of Anesthesia: General Endo, Local Pre-Operative Diagnosis: Esophageal stricture Operative Findings: see operative report Post-Operative Diagnosis: Esophageal stricture Operation Performed: Open gastrostomy w/ Exparel Specimen/Specimens Removed: none Estimated Blood Loss: EBL {In ML}: 10 Blood Products Given: N/A Date of Surgery/Procedure: 06/23/18 Time of Surgery/Procedure: 18:20
[2018-06-23] MEDS ORDERED: HYDROmorphone 0.5 mg/0.5 ml ISec ONE ×2 (18:26→18:35)
[2018-06-23] MEDS: Morphine 4 MG/ML VIAL IVP PRN (23:34)
--- NOTE | 2018-06-24 03:30 | OP ---
PROCEDURE DATE: 06/23/2018 PREOPERATIVE DIAGNOSES: 1. Dysphagia. 2. Esophageal stenosis, possible benign. POSTOPERATIVE DIAGNOSES: 1. Dysphagia. 2. Esophageal stenosis, possible benign. PROCEDURE DONE: 1. Open gastrostomy tube placement. 2. Gastropexy. SURGEON: Derrick Fitzpatrick MD COLLAR TACKER: Evi Villanueva DO, PGY-4 resident. ANESTHESIA: General endotracheal tube anesthesia. ESTIMATED BLOOD LOSS: Around 10 mL. DRAIN: None. PATHOLOGY: None. COMPLICATIONS: None. INTRAOPERATIVE FINDINGS: The patient had normal looking stomach and there was no intraperitoneal carcinomatosis or other abnormality detected. DESCRIPTION OF PROCEDURE: On intraoperative steps, this is a 42-year-old male who was diagnosed with a dysphagia and esophageal stenosis and the patient needed feeding tube access and the patient was consented for open G-tube. The patient was brought the OR, placed supine on the operating table. After induction of the anesthesia, the abdomen was prepped and draped in the usual sterile fashion. An upper midline incision was made. Peritoneal cavity was entered. The stomach was identified. The antrum and the body part of the stomach was marked, pursestring suture was taken, the G-tube was passed from the left upper quadrant into the peritoneal cavity and then the G-tube was placed into the stomach. The pursestring suture was tied and now the gastropexy was done. The pursestring sutures and the needles were used the fixate the stomach anteriorly to the anterior abdominal wall and another three extra sutures were placed from the stomach to the anterior abdominal wall just to prevent the leakage as well as to make sure proper fixation of the stomach, and after that the G-tube balloon was inflated. The G-tube was functioning without any blockage and the G-tube was fixated to the skin and the peritoneal cavity was closed in two layers, the fascia and the muscles with #1 loop PDS as well as interrupted 0 Prolene sutures, subcu with a 3-0 Vicryl, skin with 4-0 Monocryl. Dry sterile dressing was applied. The patient tolerated the procedure well. Count of instrument and gauze was correct. There was no apparent complication. The patient was extubated in OR and sent to the postanesthesia care unit in stable condition. Derrick Fitzpatrick MD [facility] # [id number]
[2018-06-24] MEDS: Morphine 4 MG/ML VIAL IVP PRN ×5 (04:07→20:43)
[2018-06-24] MEDS: Sodium Chloride 0.9% 1,000 ML IV SCH ×3 (04:24→18:29)
[2018-06-24 07:13] LABS: HEMOGLOBIN 12.4 g/dL (12.0-18.0); MEAN CELL VOLUME 86.8 fL (80.0-94.0); MEAN CORPUSCULAR HEMOGLOBIN 27.1 pg (27.0-31.0); MEAN CORPUSCULAR HGB CONC 31.2 g/dL (33.0-37.0); MEAN PLATELET VOLUME 7.8 fL (7.2-11.7); RBC 4.58 Mil/uL (4.40-5.90); RED CELL DISTRIBUTION WIDTH 17.2 % (11.5-14.5); WHITE BLOOD COUNT 9.5 K/uL (4.8-10.8)
[2018-06-24 07:37] LABS: BLOOD UREA NITROGEN 11 mg/dL (9-20); CALCIUM 9.1 mg/dl (8.6-10.4); GFR NON-AFRICAN AMERICAN > 60
--- NOTE | 2018-06-24 07:42 | CP.PCM.PN ---
<Alex Ozuna - Last Filed: 06/24/18 08:19> Subjective - Date & Time of Evaluation Date of Evaluation: 06/24/18 Time of Evaluation: 06:50 - Subjective Subjective: PGY6 GI Fellow Progress Note Patient seen and examined bedside this morning. The patient states that he has soreness in the abdomen surrounding newly placed PEG site. No nausea, vomiting overnight. Has been maintained strict NPO since procedure and eager to have some liquids. 12 system ROS performed and negative except where stated Objective - Vital Signs/Intake and Output Vital Signs (last 24 hours): Temp Pulse Resp BP Pulse Ox 98.7 F 81 20 96/60 L 95 06/24/18 00:00 06/23/18 21:00 06/24/18 00:00 06/24/18 00:00 06/24/18 00:00 Intake and Output: 06/24/18 06/24/18 06:59 18:59 Intake Total 250 Output Total 30 Balance 220 - Medications Medications: Current Medications Al Hydrox/Mg Hydrox/Simethicone (Maalox 30 Ml) 30 ml PO Q6H PRN PRN Reason: Indigestion / Heartburn Last Admin: 06/15/18 15:48 Dose: 30 ml Clonidine HCl (Catapres) 0.1 mg PO Q4H PRN PRN Reason: Symptoms of alcohol withdrawl Last Admin: 06/18/18 10:22 Dose: 0.1 mg Cyclobenzaprine HCl (Flexeril) 5 mg PO TIDAC [facility] Last Admin: 06/23/18 19:39 Dose: Not Given Folic Acid (Folic Acid) 1 mg PO DAILY [facility] Last Admin: 06/23/18 09:01 Dose: Not Given Gabapentin (Neurontin) 300 mg PO BID [facility] Last Admin: 06/23/18 19:40 Dose: Not Given Glimepiride (Amaryl) 4 mg PO BID [facility] Last Admin: 06/18/18 17:35 Dose: 4 mg Hydromorphone HCl (Dilaudid) 0.5 mg IVP Q10M PRN PRN Reason: Pain, moderate (4-7) Last Admin: 06/23/18 19:23 Dose: 0.5 mg Hydroxyzine HCl (Atarax) 50 mg PO Q6H PRN PRN Reason: Anxiety Last Admin: 06/15/18 21:24 Dose: 50 mg Sodium Chloride (Sodium Chloride 0.9%) 1,000 mls @ 125 mls/hr IV .Q8H [facility] Last Admin: 06/24/18 04:24 Dose: 125 mls/hr Insulin Aspart (Novolog) 0 unit SC ACHS [facility]; Protocol Last Admin: 06/23/18 21:36 Dose: Not Given Lorazepam (Ativan) 0.5 mg IVP HS PRN PRN Reason: Insomnia Last Admin: 06/23/18 22:06 Dose: 0.5 mg Magnesium Oxide (Mag-Ox) 400 mg PO BID [facility] Last Admin: 06/23/18 19:40 Dose: Not Given Metformin HCl (Glucophage) 1,000 mg PO BID [facility] Last Admin: 06/23/18 19:39 Dose: Not Given Mirtazapine (Remeron) 15 mg PO HS [facility] Last Admin: 06/23/18 21:36 Dose: Not Given Morphine Sulfate (Morphine) 4 mg IVP Q4 PRN PRN Reason: Pain, moderate (4-7) Last Admin: 06/24/18 04:07 Dose: 4 mg Multivitamins (Hexavitamin) 1 tab PO DAILY [facility] Last Admin: 06/23/18 09:02 Dose: Not Given Nicotine (Nicoderm Cq) 1 patch TD DAILY [facility] Last Admin: 06/23/18 09:15 Dose: 1 patch Ondansetron HCl (Zofran Inj) 4 mg IVP Q8 PRN PRN Reason: Nausea/Vomiting Last Admin: 06/24/18 04:45 Dose: 4 mg Pantoprazole Sodium (Protonix Inj) 40 mg IVP Q12H [facility] Last Admin: 06/23/18 21:20 Dose: 40 mg Sitagliptin Phosphate (Januvia) 25 mg PO DAILY [facility] Last Admin: 06/23/18 09:03 Dose: Not Given Thiamine HCl (Vitamin B1 Tab) 100 mg PO DAILY [facility] Last Admin: 06/23/18 09:03 Dose: Not Given Trazodone HCl (Desyrel) 100 mg PO HS PRN PRN Reason: Insomnia Last Admin: 06/22/18 21:33 Dose: 100 mg - Labs Labs: 06/24/18 07:05 06/23/18 06:24 PT 10.4 SECONDS (9.7-12.2) 06/23/18 06:24 INR 1.0 06/23/18 06:24 - Constitutional Appears: Non-toxic, No Acute Distress - Eye Exam Eye Exam: EOMI, PERRL - ENT Exam ENT Exam: Mucous Membranes Moist - Respiratory Exam Respiratory Exam: Clear to Ausculation Bilateral. absent: Rales, Rhonchi, Wheezes - Cardiovascular Exam Cardiovascular Exam: RRR, +S1, +S2 - GI/Abdominal Exam GI & Abdominal Exam: Soft, Tenderness (around PEG site), Normal Bowel Sounds. absent: Distended, Firm, Guarding, Rigid, Organomegaly Additional comments: PEG in LUQ connected and draining to arguello - Extremities Exam Extremities Exam: Normal Inspection. absent: Pedal Edema - Neurological Exam Neurological Exam: Alert, Awake, Oriented x3 - Psychiatric Exam Psychiatric exam: Normal Affect, Normal Mood - Skin Skin Exam: Dry, Warm Assessment and Plan - Assessment and Plan (Free Text) Assessment: Patient is a 42yo male with PMHx significant for alcohol-induced pancreatitis, type 2 DM, HTN, PUD, polysubstance abuse (EtOH /cocaine/heroin/benzodiazepines/tobacco) who presented to the hospital for alcohol detox -Dysphagia 2/2 esophageal stricture - suspect peptic stricture -Odynophagia 2/2 above -Grade D esophagitis -Unintentional weight loss -Polysubstance abuse Plan: -S/P surgically placed PEG yesterday -If OK with surgery, would initiate use of PEG tube for tube feeding with Glucerna 1.5 with goal of 60cc/hr -Can switch PPI to per PEG once in use -Will need repeat endoscopy in 4-6 weeks -EtOH abstinence stressed -OK to supplement with clear liquid diet as tolerated -Social service assistance <Smith Jasso - Last Filed: 06/24/18 08:49> Objective - Vital Signs/Intake and Output Vital Signs (last 24 hours): Temp Pulse Resp BP Pulse Ox 97.9 F 90 20 143/90 100 06/24/18 08:18 06/24/18 08:18 06/24/18 08:18 06/24/18 08:18 06/24/18 08:18 Intake and Output: 06/24/18 06/24/18 06:59 18:59 Intake Total 250 1000 Output Total 30 850 Balance 220 150 - Medications Medications: Current Medications Al Hydrox/Mg Hydrox/Simethicone (Maalox 30 Ml) 30 ml PO Q6H PRN PRN Reason: Indigestion / Heartburn Last Admin: 06/15/18 15:48 Dose: 30 ml Clonidine HCl (Catapres) 0.1 mg PO Q4H PRN PRN Reason: Symptoms of alcohol withdrawl Last Admin: 06/18/18 10:22 Dose: 0.1 mg Cyclobenzaprine HCl (Flexeril) 5 mg PO TIDAC [facility] Last Admin: 06/24/18 08:12 Dose: Not Given Folic Acid (Folic Acid) 1 mg PO DAILY [facility] Last Admin: 06/23/18 09:01 Dose: Not Given Gabapentin (Neurontin) 300 mg PO BID [facility] Last Admin: 06/23/18 19:40 Dose: Not Given Glimepiride (Amaryl) 4 mg PO BID [facility] Last Admin: 06/18/18 17:35 Dose: 4 mg Hydromorphone HCl (Dilaudid) 0.5 mg IVP Q10M PRN PRN Reason: Pain, moderate (4-7) Last Admin: 06/23/18 19:23 Dose: 0.5 mg Hydroxyzine HCl (Atarax) 50 mg PO Q6H PRN PRN Reason: Anxiety Last Admin: 06/15/18 21:24 Dose: 50 mg Sodium Chloride (Sodium Chloride 0.9%) 1,000 mls @ 125 mls/hr IV .Q8H [facility] Last Admin: 06/24/18 04:24 Dose: 125 mls/hr Insulin Aspart (Novolog) 0 unit SC [facility]; Protocol Last Admin: 06/24/18 08:13 Dose: Not Given Lorazepam (Ativan) 0.5 mg IVP HS PRN PRN Reason: Insomnia Last Admin: 06/23/18 22:06 Dose: 0.5 mg Magnesium Oxide (Mag-Ox) 400 mg PO BID [facility] Last Admin: 06/23/18 19:40 Dose: Not Given Metformin HCl (Glucophage) 1,000 mg PO BID [facility] Last Admin: 06/23/18 19:39 Dose: Not Given Mirtazapine (Remeron) 15 mg PO HS [facility] Last Admin: 06/23/18 21:36 Dose: Not Given Morphine Sulfate (Morphine) 4 mg IVP Q4 PRN PRN Reason: Pain, moderate (4-7) Last Admin: 06/24/18 08:40 Dose: 4 mg Multivitamins (Hexavitamin) 1 tab PO DAILY [facility] Last Admin: 06/23/18 09:02 Dose: Not Given Nicotine (Nicoderm Cq) 1 patch TD DAILY [facility] Last Admin: 06/23/18 09:15 Dose: 1 patch Ondansetron HCl (Zofran Inj) 4 mg IVP Q8 PRN PRN Reason: Nausea/Vomiting Last Admin: 06/24/18 04:45 Dose: 4 mg Pantoprazole Sodium (Protonix Inj) 40 mg IVP Q12H [facility] Last Admin: 06/24/18 08:39 Dose: 40 mg Sitagliptin Phosphate (Januvia) 25 mg PO DAILY [facility] Last Admin: 06/23/18 09:03 Dose: Not Given Thiamine HCl (Vitamin B1 Tab) 100 mg PO DAILY [facility] Last Admin: 06/23/18 09:03 Dose: Not Given Trazodone HCl (Desyrel) 100 mg PO HS PRN PRN Reason: Insomnia Last Admin: 06/22/18 21:33 Dose: 100 mg - Labs Labs: 06/24/18 07:05 06/24/18 07:05 PT 10.4 SECONDS (9.7-12.2) 06/23/18 06:24 INR 1.0 06/23/18 06:24 Attending/Attestation - Attestation I have personally seen and examined this patient.: Yes I have fully participated in the care of the patient.: Yes I have reviewed all pertinent clinical information, including history, physical exam and plan: Yes Notes (Text): 06/24/18 08:46 I have seen and examined patient with GI fellow. No acute events overnight, he underwent surgical gastrostomy tube placement yesterday. He endorses pain at feeding tube site but otherwise denies nausea, vomiting, fever/chills. DM/HTN ETOH abuse Dysphagia, esophageal stricture - unable to traverse during attempted EGD x 2 Weight loss - Begin tube feeding as per surgical recommendations - Continue with PPI therapy twice daily - ETOH cessation - Patient will benefit from repeat EGD within 1-2 months after medical therapy for further evaluation and treatment of esophageal stricture - No further planned GI intervention, will sign off case. Please reconsult as necessary, thank you.
[2018-06-24] MEDS: (Novolog) Insulin Aspart, Recombinant 100 u/ml 10 ml vial SC SCH ×4 (08:13→21:10)
[2018-06-24] MEDS ORDERED: Iohexol 240 200 ML ONE (08:19)
--- NOTE | 2018-06-24 09:23 | CP.PCM.PN ---
<Evi Villanueva - Last Filed: 06/24/18 13:41> Subjective - Date & Time of Evaluation Date of Evaluation: 06/24/18 Time of Evaluation: 07:00 - Subjective Subjective: GENERAL SURGERY PROGRESS NOTE FOR DR. FITZPATRICK Patient seen and examined at bedside. He reports pain at the incision site. He is passing flatus and had BM this AM. He reports getting OOB to bathroom and is voiding. Reports some mild nausea but no vomiting. Pt admits to drinking 1/2 cup of water this morning despite being strict NPO. Objective - Vital Signs/Intake and Output Vital Signs (last 24 hours): Temp Pulse Resp BP Pulse Ox 97.9 F 90 20 143/90 100 06/24/18 08:18 06/24/18 08:18 06/24/18 08:18 06/24/18 08:18 06/24/18 08:18 Intake and Output: 06/24/18 06/24/18 06:59 18:59 Intake Total 250 1000 Output Total 30 850 Balance 220 150 - Medications Medications: Current Medications Al Hydrox/Mg Hydrox/Simethicone (Maalox 30 Ml) 30 ml PO Q6H PRN PRN Reason: Indigestion / Heartburn Last Admin: 06/15/18 15:48 Dose: 30 ml Clonidine HCl (Catapres) 0.1 mg PO Q4H PRN PRN Reason: Symptoms of alcohol withdrawl Last Admin: 06/18/18 10:22 Dose: 0.1 mg Cyclobenzaprine HCl (Flexeril) 5 mg PO TIDAC [facility] Last Admin: 06/24/18 08:12 Dose: Not Given Folic Acid (Folic Acid) 1 mg PO DAILY [facility] Last Admin: 06/23/18 09:01 Dose: Not Given Gabapentin (Neurontin) 300 mg PO BID [facility] Last Admin: 06/23/18 19:40 Dose: Not Given Glimepiride (Amaryl) 4 mg PO BID [facility] Last Admin: 06/18/18 17:35 Dose: 4 mg Hydromorphone HCl (Dilaudid) 0.5 mg IVP Q10M PRN PRN Reason: Pain, moderate (4-7) Last Admin: 06/23/18 19:23 Dose: 0.5 mg Hydroxyzine HCl (Atarax) 50 mg PO Q6H PRN PRN Reason: Anxiety Last Admin: 06/15/18 21:24 Dose: 50 mg Sodium Chloride (Sodium Chloride 0.9%) 1,000 mls @ 125 mls/hr IV .Q8H [facility] Last Admin: 06/24/18 04:24 Dose: 125 mls/hr Insulin Aspart (Novolog) 0 unit SC ACHS [facility]; Protocol Last Admin: 06/24/18 08:13 Dose: Not Given Lorazepam (Ativan) 0.5 mg IVP HS PRN PRN Reason: Insomnia Last Admin: 06/23/18 22:06 Dose: 0.5 mg Magnesium Oxide (Mag-Ox) 400 mg PO BID [facility] Last Admin: 06/23/18 19:40 Dose: Not Given Metformin HCl (Glucophage) 1,000 mg PO BID [facility] Last Admin: 06/23/18 19:39 Dose: Not Given Mirtazapine (Remeron) 15 mg PO HS [facility] Last Admin: 06/23/18 21:36 Dose: Not Given Morphine Sulfate (Morphine) 4 mg IVP Q4 PRN PRN Reason: Pain, moderate (4-7) Last Admin: 06/24/18 08:40 Dose: 4 mg Multivitamins (Hexavitamin) 1 tab PO DAILY [facility] Last Admin: 06/23/18 09:02 Dose: Not Given Nicotine (Nicoderm Cq) 1 patch TD DAILY [facility] Last Admin: 06/23/18 09:15 Dose: 1 patch Ondansetron HCl (Zofran Inj) 4 mg IVP Q8 PRN PRN Reason: Nausea/Vomiting Last Admin: 06/24/18 04:45 Dose: 4 mg Pantoprazole Sodium (Protonix Inj) 40 mg IVP Q12H [facility] Last Admin: 06/24/18 08:39 Dose: 40 mg Sitagliptin Phosphate (Januvia) 25 mg PO DAILY [facility] Last Admin: 06/23/18 09:03 Dose: Not Given Thiamine HCl (Vitamin B1 Tab) 100 mg PO DAILY [facility] Last Admin: 06/23/18 09:03 Dose: Not Given Trazodone HCl (Desyrel) 100 mg PO HS PRN PRN Reason: Insomnia Last Admin: 06/22/18 21:33 Dose: 100 mg - Labs Labs: 06/24/18 07:05 06/24/18 07:05 PT 10.4 SECONDS (9.7-12.2) 06/23/18 06:24 INR 1.0 06/23/18 06:24 - Constitutional Appears: Non-toxic, No Acute Distress - Head Exam Head Exam: ATRAUMATIC, NORMAL INSPECTION - Eye Exam Eye Exam: EOMI, Normal appearance - Respiratory Exam Respiratory Exam: NORMAL BREATHING PATTERN. absent: Respiratory Distress - Cardiovascular Exam Cardiovascular Exam: +S1, +S2 - GI/Abdominal Exam GI & Abdominal Exam: Soft, Tenderness (aly-incisional tenderness). absent: Distended, Firm, Guarding, Rigid, Rebound Additional comments: Gastrostomy tube in place to gravity drainage with 1L in [place] bag - Neurological Exam Neurological Exam: Alert, Awake, Oriented x3 - Psychiatric Exam Psychiatric exam: Normal Affect, Normal Mood - Skin Skin Exam: Dry, Warm Assessment and Plan - Assessment and Plan (Free Text) Assessment: 42yo M with esophageal stricture and esophagitis s/p stiven gastrostomy POD#1 - G tube study this AM with gastrograffin - If negative study, may begin tube feeds through tube - GI recs: PPI BID, repeat EGD in 1-2 months - Encourage ambulation and IS use - DVT PPx - Discussed plan with Dr. Amari Villanueva PGY-4 <Derrick Fitzpatrick - Last Filed: 06/29/18 22:07> Objective - Vital Signs/Intake and Output Vital Signs (last 24 hours): Temp Pulse Resp BP Pulse Ox 99.4 F 106 H 20 117/83 94 L 06/29/18 15:00 06/29/18 15:00 06/29/18 15:00 06/29/18 15:00 06/29/18 15:00 Intake and Output: 06/29/18 06/30/18 18:59 06:59 Intake Total 580 Balance 580 - Medications Medications: Current Medications Al Hydrox/Mg Hydrox/Simethicone (Maalox 30 Ml) 30 ml PO Q6H PRN PRN Reason: Indigestion / Heartburn Last Admin: 06/15/18 15:48 Dose: 30 ml Clonidine HCl (Catapres) 0.1 mg PO Q4H PRN PRN Reason: Symptoms of alcohol withdrawl Last Admin: 06/18/18 10:22 Dose: 0.1 mg Cyclobenzaprine HCl (Flexeril) 5 mg PO TIDAC [facility] Last Admin: 06/29/18 17:41 Dose: 5 mg Enoxaparin Sodium (Lovenox) 40 mg SC DAILY [facility] Last Admin: 06/29/18 10:23 Dose: 40 mg Folic Acid (Folic Acid) 1 mg PO DAILY [facility] Last Admin: 06/29/18 10:24 Dose: 1 mg Gabapentin (Neurontin) 300 mg PO BID [facility] Last Admin: 06/29/18 17:41 Dose: 300 mg Glimepiride (Amaryl) 4 mg PO BID [facility] Last Admin: 06/18/18 17:35 Dose: 4 mg Hydroxyzine HCl (Atarax) 50 mg PO Q6H PRN PRN Reason: Anxiety Last Admin: 06/24/18 17:34 Dose: 50 mg Insulin Aspart (Novolog) 0 unit SC [facility]; Protocol Last Admin: 06/29/18 21:14 Dose: Not Given Lorazepam (Ativan) 0.5 mg IVP HS PRN PRN Reason: Insomnia Last Admin: 06/28/18 22:52 Dose: 0.5 mg Magnesium Oxide (Mag-Ox) 400 mg PO BID [facility] Last Admin: 06/29/18 17:41 Dose: 400 mg Metformin HCl (Glucophage) 1,000 mg PO BID [facility] Last Admin: 06/29/18 17:41 Dose: 1,000 mg Mirtazapine (Remeron) 15 mg PO HS [facility] Last Admin: 06/28/18 22:02 Dose: 15 mg Morphine Sulfate (Morphine) 4 mg IVP Q4 PRN PRN Reason: Pain, moderate (4-7) Last Admin: 06/29/18 20:40 Dose: 4 mg Multivitamins (Hexavitamin) 1 tab PO DAILY [facility] Last Admin: 06/29/18 10:26 Dose: Not Given Nicotine (Nicoderm Cq) 1 patch TD DAILY [facility] Last Admin: 06/29/18 10:24 Dose: 1 patch Ondansetron HCl (Zofran Inj) 4 mg IVP Q8 PRN PRN Reason: Nausea/Vomiting Last Admin: 06/29/18 17:41 Dose: 4 mg Pantoprazole Sodium (Protonix Inj) 40 mg IVP Q12H [facility] Last Admin: 06/29/18 08:30 Dose: 40 mg Sitagliptin Phosphate (Januvia) 25 mg PO DAILY [facility] Last Admin: 06/29/18 10:24 Dose: 25 mg Thiamine HCl (Vitamin B1 Tab) 100 mg PO DAILY [facility] Last Admin: 06/29/18 10:24 Dose: 100 mg Trazodone HCl (Desyrel) 100 mg PO HS PRN PRN Reason: Insomnia Last Admin: 06/22/18 21:33 Dose: 100 mg - Labs Labs: 06/27/18 06:51 06/27/18 06:51 PT 10.4 SECONDS (9.7-12.2) 06/23/18 06:24 INR 1.0 06/23/18 06:24 Attending/Attestation - Attestation I have personally seen and examined this patient.: Yes I have fully participated in the care of the patient.: Yes I have reviewed all pertinent clinical information, including history, physical exam and plan: Yes Notes (Text): Pt was seen and examined at bedside Agree with above note and assessment Pt is improving, Incisional Pain Start tube feed tomorrow c.w current mx CT surgery f.u Plan d.w pt in detail.
[2018-06-24] MEDS: Multiple Vitamins Tab PO SCH (10:15)
[2018-06-24] MEDS: Magnesium Oxide 400 mg Tab UD PO SCH ×2 (10:16→17:34)
[2018-06-24] MEDS: Enoxaparin 40 mg Syringe SC SCH (11:09)
--- NOTE | 2018-06-24 12:37 | RAD ---
Date of service: 06/24/2018 HISTORY: Gastrostomy tube study COMPARISON: None available. FINDINGS: BOWEL: Preliminary radiograph demonstrates gastrostomy tube at the left roosevelt abdomen in the inferior epigastric region with subsequent images captured following Omnipaque injection by surgical instruments inspector. The stomach is a partially opacified with iodinated contrast material which also partially surrounds the bulb from the gastrostomy tubing. No definitive extravasation of iodinated contrast material is appreciated. Proximal duodenum is also opacified with contrast. Nonobstructive bowel gas pattern identified. No large free intrarenal gas collection identified. BONES: Normal. OTHER FINDINGS: None. IMPRESSION: Adequate gastrostomy tube positioning with iodinated contrast material identified within the stomach and duodenum with none definitely shown extravasated.
--- NOTE | 2018-06-24 16:49 | CP.PCM.PN ---
Subjective - Date & Time of Evaluation Date of Evaluation: 06/24/18 Time of Evaluation: 07:15 - Subjective Subjective: clinically same Objective - Vital Signs/Intake and Output Vital Signs (last 24 hours): Temp Pulse Resp BP Pulse Ox 98.6 F 92 H 20 153/106 H 95 06/24/18 16:00 06/24/18 16:00 06/24/18 16:00 06/24/18 16:00 06/24/18 16:00 Intake and Output: 06/24/18 06/24/18 06:59 18:59 Intake Total 250 2100 Output Total 30 1001 Balance 220 1099 - Medications Medications: Current Medications Al Hydrox/Mg Hydrox/Simethicone (Maalox 30 Ml) 30 ml PO Q6H PRN PRN Reason: Indigestion / Heartburn Last Admin: 06/15/18 15:48 Dose: 30 ml Clonidine HCl (Catapres) 0.1 mg PO Q4H PRN PRN Reason: Symptoms of alcohol withdrawl Last Admin: 06/18/18 10:22 Dose: 0.1 mg Cyclobenzaprine HCl (Flexeril) 5 mg PO TIDAC [facility] Last Admin: 06/24/18 12:05 Dose: 5 mg Enoxaparin Sodium (Lovenox) 40 mg SC DAILY [facility] Last Admin: 06/24/18 11:09 Dose: 40 mg Folic Acid (Folic Acid) 1 mg PO DAILY [facility] Last Admin: 06/24/18 10:15 Dose: Not Given Gabapentin (Neurontin) 300 mg PO BID [facility] Last Admin: 06/24/18 10:16 Dose: Not Given Glimepiride (Amaryl) 4 mg PO BID [facility] Last Admin: 06/18/18 17:35 Dose: 4 mg Hydromorphone HCl (Dilaudid) 0.5 mg IVP Q10M PRN PRN Reason: Pain, moderate (4-7) Last Admin: 06/23/18 19:23 Dose: 0.5 mg Hydroxyzine HCl (Atarax) 50 mg PO Q6H PRN PRN Reason: Anxiety Last Admin: 06/15/18 21:24 Dose: 50 mg Sodium Chloride (Sodium Chloride 0.9%) 1,000 mls @ 125 mls/hr IV .Q8H [facility] Last Admin: 06/24/18 12:00 Dose: 125 mls/hr Insulin Aspart (Novolog) 0 unit SC ACHS [facility]; Protocol Last Admin: 06/24/18 11:20 Dose: Not Given Lorazepam (Ativan) 0.5 mg IVP HS PRN PRN Reason: Insomnia Last Admin: 06/23/18 22:06 Dose: 0.5 mg Magnesium Oxide (Mag-Ox) 400 mg PO BID [facility] Last Admin: 06/24/18 10:16 Dose: Not Given Metformin HCl (Glucophage) 1,000 mg PO BID [facility] Last Admin: 06/24/18 10:15 Dose: Not Given Mirtazapine (Remeron) 15 mg PO HS [facility] Last Admin: 06/23/18 21:36 Dose: Not Given Morphine Sulfate (Morphine) 4 mg IVP Q4 PRN PRN Reason: Pain, moderate (4-7) Last Admin: 06/24/18 12:54 Dose: 4 mg Multivitamins (Hexavitamin) 1 tab PO DAILY [facility] Last Admin: 06/24/18 10:15 Dose: Not Given Nicotine (Nicoderm Cq) 1 patch TD DAILY [facility] Last Admin: 06/24/18 11:09 Dose: 1 patch Ondansetron HCl (Zofran Inj) 4 mg IVP Q8 PRN PRN Reason: Nausea/Vomiting Last Admin: 06/24/18 04:45 Dose: 4 mg Pantoprazole Sodium (Protonix Inj) 40 mg IVP Q12H [facility] Last Admin: 06/24/18 08:39 Dose: 40 mg Sitagliptin Phosphate (Januvia) 25 mg PO DAILY [facility] Last Admin: 06/24/18 10:15 Dose: Not Given Thiamine HCl (Vitamin B1 Tab) 100 mg PO DAILY [facility] Last Admin: 06/24/18 10:17 Dose: Not Given Trazodone HCl (Desyrel) 100 mg PO HS PRN PRN Reason: Insomnia Last Admin: 06/22/18 21:33 Dose: 100 mg - Labs Labs: 06/24/18 07:05 06/24/18 07:05 PT 10.4 SECONDS (9.7-12.2) 06/23/18 06:24 INR 1.0 06/23/18 06:24 Assessment and Plan (1) Alcohol abuse Status: Acute (2) Alcohol withdrawal Status: Acute (3) Airway compromise Status: Acute (4) Alcohol intoxication Status: Acute (5) Alcohol use disorder, severe, dependence Status: Acute (6) Alcoholic pancreatitis Status: Acute (7) Colitis Status: Acute (8) DKA (diabetic ketoacidoses) Status: Acute (9) Dehydration Status: Acute (10) Esophagitis Status: Acute (11) Hyperglycemia Status: Acute (12) Hypokalemia Status: Acute (13) Hyponatremia Status: Acute (14) Seizure Status: Acute (15) Throat pain in adult Status: Acute (16) Upper gastrointestinal hemorrhage Status: Acute (17) Vomiting Status: Acute - Assessment and Plan (Free Text) Plan: Monitor labs PT OT Follow-up with the consultation Other management as ordered endoScope he will be done again by another doctor continue Amaryl continue with the medications status post endoscopy twice unable to pass scope Dr. Fitzpatrick post surgically placed PEG Can switch PPI to per PEG once in a use EtOH abstinence advised past Neck clear liquid diet but did the surgery
[2018-06-25] MEDS: Sodium Chloride 0.9% 1,000 ML IV SCH ×3 (03:06→11:16)
[2018-06-25] MEDS: Morphine 4 MG/ML VIAL IVP PRN ×4 (06:38→21:01)
[2018-06-25 08:16] VITALS: RESP 20
[2018-06-25] MEDS: (Novolog) Insulin Aspart, Recombinant 100 u/ml 10 ml vial SC SCH ×4 (08:31→21:14)
[2018-06-25] MEDS: Multiple Vitamins Tab PO SCH (10:55)
[2018-06-25] MEDS: Magnesium Oxide 400 mg Tab UD PO SCH ×2 (10:57→17:44)
[2018-06-25] MEDS: Enoxaparin 40 mg Syringe SC SCH (10:57)
--- NOTE | 2018-06-25 12:18 | CP.PCM.PN ---
<Evi Villanueva - Last Filed: 06/25/18 23:21> Subjective - Date & Time of Evaluation Date of Evaluation: 06/25/18 Time of Evaluation: 07:00 - Subjective Subjective: GENERAL SURGERY PROGRESS NOTE FOR DR. FITZPATRICK Patient seen and examined at bedside. He reports being "sore" but denies abdominal pain. He is passing flatus. He reports getting OOB to bathroom and is voiding. Reports some mild nausea and was given Zofran. No vomiting. Pt is tolerating CLD. On glucerna @ 50cc/hr Objective - Vital Signs/Intake and Output Vital Signs (last 24 hours): Temp Pulse Resp BP Pulse Ox 98.9 F 110 H 20 124/78 96 06/25/18 08:00 06/25/18 08:00 06/25/18 08:00 06/25/18 08:00 06/25/18 08:00 Intake and Output: 06/25/18 06/25/18 06:59 18:59 Intake Total 2840 Output Total 650 Balance 2190 - Medications Medications: Current Medications Al Hydrox/Mg Hydrox/Simethicone (Maalox 30 Ml) 30 ml PO Q6H PRN PRN Reason: Indigestion / Heartburn Last Admin: 06/15/18 15:48 Dose: 30 ml Clonidine HCl (Catapres) 0.1 mg PO Q4H PRN PRN Reason: Symptoms of alcohol withdrawl Last Admin: 06/18/18 10:22 Dose: 0.1 mg Cyclobenzaprine HCl (Flexeril) 5 mg PO TIDAC [facility] Last Admin: 06/25/18 11:45 Dose: 5 mg Enoxaparin Sodium (Lovenox) 40 mg SC DAILY [facility] Last Admin: 06/25/18 10:57 Dose: 40 mg Folic Acid (Folic Acid) 1 mg PO DAILY [facility] Last Admin: 06/25/18 10:55 Dose: 1 mg Gabapentin (Neurontin) 300 mg PO BID [facility] Last Admin: 06/25/18 10:55 Dose: 300 mg Glimepiride (Amaryl) 4 mg PO BID [facility] Last Admin: 06/18/18 17:35 Dose: 4 mg Hydromorphone HCl (Dilaudid) 0.5 mg IVP Q10M PRN PRN Reason: Pain, moderate (4-7) Last Admin: 06/23/18 19:23 Dose: 0.5 mg Hydroxyzine HCl (Atarax) 50 mg PO Q6H PRN PRN Reason: Anxiety Last Admin: 06/24/18 17:34 Dose: 50 mg Insulin Aspart (Novolog) 0 unit SC ACHS [facility]; Protocol Last Admin: 06/25/18 11:46 Dose: Not Given Lorazepam (Ativan) 0.5 mg IVP HS PRN PRN Reason: Insomnia Last Admin: 06/24/18 21:54 Dose: 0.5 mg Magnesium Oxide (Mag-Ox) 400 mg PO BID [facility] Last Admin: 06/25/18 10:57 Dose: 400 mg Metformin HCl (Glucophage) 1,000 mg PO BID [facility] Last Admin: 06/25/18 10:55 Dose: 1,000 mg Mirtazapine (Remeron) 15 mg PO HS [facility] Last Admin: 06/24/18 21:54 Dose: 15 mg Morphine Sulfate (Morphine) 4 mg IVP Q4 PRN PRN Reason: Pain, moderate (4-7) Last Admin: 06/25/18 11:19 Dose: 4 mg Multivitamins (Hexavitamin) 1 tab PO DAILY [facility] Last Admin: 06/25/18 10:55 Dose: 1 tab Nicotine (Nicoderm Cq) 1 patch TD DAILY [facility] Last Admin: 06/25/18 10:58 Dose: 1 patch Ondansetron HCl (Zofran Inj) 4 mg IVP Q8 PRN PRN Reason: Nausea/Vomiting Last Admin: 06/25/18 06:40 Dose: 4 mg Pantoprazole Sodium (Protonix Inj) 40 mg IVP Q12H [facility] Last Admin: 06/25/18 08:31 Dose: 40 mg Sitagliptin Phosphate (Januvia) 25 mg PO DAILY [facility] Last Admin: 06/25/18 10:57 Dose: 25 mg Thiamine HCl (Vitamin B1 Tab) 100 mg PO DAILY [facility] Last Admin: 06/25/18 10:56 Dose: 100 mg Trazodone HCl (Desyrel) 100 mg PO HS PRN PRN Reason: Insomnia Last Admin: 06/22/18 21:33 Dose: 100 mg - Labs Labs: 06/24/18 07:05 06/24/18 07:05 PT 10.4 SECONDS (9.7-12.2) 06/23/18 06:24 INR 1.0 06/23/18 06:24 - Constitutional Appears: Non-toxic, No Acute Distress - Head Exam Head Exam: ATRAUMATIC, NORMAL INSPECTION - Eye Exam Eye Exam: EOMI, Normal appearance - Respiratory Exam Respiratory Exam: NORMAL BREATHING PATTERN. absent: Respiratory Distress - Cardiovascular Exam Cardiovascular Exam: +S1, +S2 - GI/Abdominal Exam GI & Abdominal Exam: Soft. absent: Distended, Firm, Guarding, Rigid, Tenderness, Rebound Additional comments: Dressing clean/dry/intact G tube in place connected to tube feeds @50cc/hr (goal of 60cc/hr) - Neurological Exam Neurological Exam: Alert, Awake, Oriented x3 - Psychiatric Exam Psychiatric exam: Normal Affect, Normal Mood - Skin Skin Exam: Dry, Warm Assessment and Plan - Assessment and Plan (Free Text) Assessment: 42yo M with esophageal stricture and esophagitis s/p stiven gastrostomy POD#2 - Tolerating tube feeds via G tube - Will discuss with thoracic surgery regarding possible balloon dilation/stent - Encourage ambulation and IS use - DVT PPx - Discussed plan with Dr. Amari Villanueva PGY-4 <Derrick Fitzpatrick - Last Filed: 06/29/18 22:08> Objective - Vital Signs/Intake and Output Vital Signs (last 24 hours): Temp Pulse Resp BP Pulse Ox 99.4 F 106 H 20 117/83 94 L 06/29/18 15:00 06/29/18 15:00 06/29/18 15:00 06/29/18 15:00 06/29/18 15:00 Intake and Output: 06/29/18 06/30/18 18:59 06:59 Intake Total 580 Balance 580 - Medications Medications: Current Medications Al Hydrox/Mg Hydrox/Simethicone (Maalox 30 Ml) 30 ml PO Q6H PRN PRN Reason: Indigestion / Heartburn Last Admin: 06/15/18 15:48 Dose: 30 ml Clonidine HCl (Catapres) 0.1 mg PO Q4H PRN PRN Reason: Symptoms of alcohol withdrawl Last Admin: 06/18/18 10:22 Dose: 0.1 mg Cyclobenzaprine HCl (Flexeril) 5 mg PO TIDAC [facility] Last Admin: 06/29/18 17:41 Dose: 5 mg Enoxaparin Sodium (Lovenox) 40 mg SC DAILY [facility] Last Admin: 06/29/18 10:23 Dose: 40 mg Folic Acid (Folic Acid) 1 mg PO DAILY [facility] Last Admin: 06/29/18 10:24 Dose: 1 mg Gabapentin (Neurontin) 300 mg PO BID [facility] Last Admin: 06/29/18 17:41 Dose: 300 mg Glimepiride (Amaryl) 4 mg PO BID [facility] Last Admin: 06/18/18 17:35 Dose: 4 mg Hydroxyzine HCl (Atarax) 50 mg PO Q6H PRN PRN Reason: Anxiety Last Admin: 06/24/18 17:34 Dose: 50 mg Insulin Aspart (Novolog) 0 unit SC [facility]; Protocol Last Admin: 06/29/18 21:14 Dose: Not Given Lorazepam (Ativan) 0.5 mg IVP HS PRN PRN Reason: Insomnia Last Admin: 06/28/18 22:52 Dose: 0.5 mg Magnesium Oxide (Mag-Ox) 400 mg PO BID [facility] Last Admin: 06/29/18 17:41 Dose: 400 mg Metformin HCl (Glucophage) 1,000 mg PO BID [facility] Last Admin: 06/29/18 17:41 Dose: 1,000 mg Mirtazapine (Remeron) 15 mg PO HS [facility] Last Admin: 06/28/18 22:02 Dose: 15 mg Morphine Sulfate (Morphine) 4 mg IVP Q4 PRN PRN Reason: Pain, moderate (4-7) Last Admin: 06/29/18 20:40 Dose: 4 mg Multivitamins (Hexavitamin) 1 tab PO DAILY [facility] Last Admin: 06/29/18 10:26 Dose: Not Given Nicotine (Nicoderm Cq) 1 patch TD DAILY [facility] Last Admin: 06/29/18 10:24 Dose: 1 patch Ondansetron HCl (Zofran Inj) 4 mg IVP Q8 PRN PRN Reason: Nausea/Vomiting Last Admin: 06/29/18 17:41 Dose: 4 mg Pantoprazole Sodium (Protonix Inj) 40 mg IVP Q12H [facility] Last Admin: 06/29/18 08:30 Dose: 40 mg Sitagliptin Phosphate (Januvia) 25 mg PO DAILY [facility] Last Admin: 06/29/18 10:24 Dose: 25 mg Thiamine HCl (Vitamin B1 Tab) 100 mg PO DAILY [facility] Last Admin: 06/29/18 10:24 Dose: 100 mg Trazodone HCl (Desyrel) 100 mg PO HS PRN PRN Reason: Insomnia Last Admin: 06/22/18 21:33 Dose: 100 mg - Labs Labs: 06/27/18 06:51 06/27/18 06:51 PT 10.4 SECONDS (9.7-12.2) 06/23/18 06:24 INR 1.0 06/23/18 06:24 Attending/Attestation - Attestation I have personally seen and examined this patient.: Yes I have fully participated in the care of the patient.: Yes I have reviewed all pertinent clinical information, including history, physical exam and plan: Yes Notes (Text): Pt was seen and examined at bedside Agree with above note and assessment Pt is tolerating tube feeds Can start bolus feeds f.u as out pt Plan d.w pt in detail.
--- NOTE | 2018-06-25 17:13 | CP.PCM.PN ---
Subjective - Date & Time of Evaluation Date of Evaluation: 06/25/18 Time of Evaluation: 07:15 - Subjective Subjective: clinically same Objective - Vital Signs/Intake and Output Vital Signs (last 24 hours): Temp Pulse Resp BP Pulse Ox 98.0 F 98 H 20 130/90 97 06/25/18 15:05 06/25/18 15:05 06/25/18 15:05 06/25/18 15:05 06/25/18 15:05 Intake and Output: 06/25/18 06/25/18 06:59 18:59 Intake Total 2840 1765 Output Total 650 750 Balance 2190 1015 - Medications Medications: Current Medications Al Hydrox/Mg Hydrox/Simethicone (Maalox 30 Ml) 30 ml PO Q6H PRN PRN Reason: Indigestion / Heartburn Last Admin: 06/15/18 15:48 Dose: 30 ml Clonidine HCl (Catapres) 0.1 mg PO Q4H PRN PRN Reason: Symptoms of alcohol withdrawl Last Admin: 06/18/18 10:22 Dose: 0.1 mg Cyclobenzaprine HCl (Flexeril) 5 mg PO TIDAC [facility] Last Admin: 06/25/18 11:45 Dose: 5 mg Enoxaparin Sodium (Lovenox) 40 mg SC DAILY [facility] Last Admin: 06/25/18 10:57 Dose: 40 mg Folic Acid (Folic Acid) 1 mg PO DAILY [facility] Last Admin: 06/25/18 10:55 Dose: 1 mg Gabapentin (Neurontin) 300 mg PO BID [facility] Last Admin: 06/25/18 10:55 Dose: 300 mg Glimepiride (Amaryl) 4 mg PO BID [facility] Last Admin: 06/18/18 17:35 Dose: 4 mg Hydromorphone HCl (Dilaudid) 0.5 mg IVP Q10M PRN PRN Reason: Pain, moderate (4-7) Last Admin: 06/23/18 19:23 Dose: 0.5 mg Hydroxyzine HCl (Atarax) 50 mg PO Q6H PRN PRN Reason: Anxiety Last Admin: 06/24/18 17:34 Dose: 50 mg Insulin Aspart (Novolog) 0 unit SC [facility]; Protocol Last Admin: 06/25/18 17:12 Dose: Not Given Lorazepam (Ativan) 0.5 mg IVP HS PRN PRN Reason: Insomnia Last Admin: 06/24/18 21:54 Dose: 0.5 mg Magnesium Oxide (Mag-Ox) 400 mg PO BID [facility] Last Admin: 06/25/18 10:57 Dose: 400 mg Metformin HCl (Glucophage) 1,000 mg PO BID [facility] Last Admin: 06/25/18 10:55 Dose: 1,000 mg Mirtazapine (Remeron) 15 mg PO HS [facility] Last Admin: 06/24/18 21:54 Dose: 15 mg Morphine Sulfate (Morphine) 4 mg IVP Q4 PRN PRN Reason: Pain, moderate (4-7) Last Admin: 06/25/18 16:34 Dose: 4 mg Multivitamins (Hexavitamin) 1 tab PO DAILY [facility] Last Admin: 06/25/18 10:55 Dose: 1 tab Nicotine (Nicoderm Cq) 1 patch TD DAILY [facility] Last Admin: 06/25/18 10:58 Dose: 1 patch Ondansetron HCl (Zofran Inj) 4 mg IVP Q8 PRN PRN Reason: Nausea/Vomiting Last Admin: 06/25/18 06:40 Dose: 4 mg Pantoprazole Sodium (Protonix Inj) 40 mg IVP Q12H [facility] Last Admin: 06/25/18 08:31 Dose: 40 mg Sitagliptin Phosphate (Januvia) 25 mg PO DAILY [facility] Last Admin: 06/25/18 10:57 Dose: 25 mg Thiamine HCl (Vitamin B1 Tab) 100 mg PO DAILY [facility] Last Admin: 06/25/18 10:56 Dose: 100 mg Trazodone HCl (Desyrel) 100 mg PO HS PRN PRN Reason: Insomnia Last Admin: 06/22/18 21:33 Dose: 100 mg - Labs Labs: 06/24/18 07:05 06/24/18 07:05 PT 10.4 SECONDS (9.7-12.2) 06/23/18 06:24 INR 1.0 06/23/18 06:24 Assessment and Plan (1) Alcohol abuse Status: Acute (2) Alcohol withdrawal Status: Acute (3) Airway compromise Status: Acute (4) Alcohol intoxication Status: Acute (5) Alcohol use disorder, severe, dependence Status: Acute (6) Alcoholic pancreatitis Status: Acute (7) Colitis Status: Acute (8) DKA (diabetic ketoacidoses) Status: Acute (9) Dehydration Status: Acute (10) Esophagitis Status: Acute (11) Hyperglycemia Status: Acute (12) Hypokalemia Status: Acute (13) Hyponatremia Status: Acute (14) Seizure Status: Acute (15) Throat pain in adult Status: Acute (16) Upper gastrointestinal hemorrhage Status: Acute (17) Vomiting Status: Acute
[2018-06-26] MEDS: Morphine 4 MG/ML VIAL IVP PRN ×5 (02:43→20:59)
[2018-06-26] MEDS: (Novolog) Insulin Aspart, Recombinant 100 u/ml 10 ml vial SC SCH ×4 (08:06→22:00)
--- NOTE | 2018-06-26 10:33 | CP.PCM.PN ---
<Adam Pedroza D - Last Filed: 06/26/18 10:30> Subjective - Date & Time of Evaluation Date of Evaluation: 06/26/18 Time of Evaluation: 10:30 - Subjective Subjective: SURGERY NOTE FOR DR. FITZPATRICK/YOBANY 42M seen and examined at bedside. Patient tolerating clear liquids, tolerating tube feeds. Objective - Vital Signs/Intake and Output Vital Signs (last 24 hours): Temp Pulse Resp BP Pulse Ox 99.1 F 93 H 20 110/71 96 06/26/18 07:33 06/26/18 07:33 06/26/18 07:33 06/26/18 07:33 06/26/18 07:33 Intake and Output: 06/26/18 06/26/18 06:59 18:59 Intake Total 487 Output Total 400 Balance 87 - Medications Medications: Current Medications Al Hydrox/Mg Hydrox/Simethicone (Maalox 30 Ml) 30 ml PO Q6H PRN PRN Reason: Indigestion / Heartburn Last Admin: 06/15/18 15:48 Dose: 30 ml Clonidine HCl (Catapres) 0.1 mg PO Q4H PRN PRN Reason: Symptoms of alcohol withdrawl Last Admin: 06/18/18 10:22 Dose: 0.1 mg Cyclobenzaprine HCl (Flexeril) 5 mg PO TIDAC [facility] Last Admin: 06/26/18 08:16 Dose: Not Given Enoxaparin Sodium (Lovenox) 40 mg SC DAILY [facility] Last Admin: 06/25/18 10:57 Dose: 40 mg Folic Acid (Folic Acid) 1 mg PO DAILY [facility] Last Admin: 06/25/18 10:55 Dose: 1 mg Gabapentin (Neurontin) 300 mg PO BID [facility] Last Admin: 06/25/18 17:45 Dose: 300 mg Glimepiride (Amaryl) 4 mg PO BID [facility] Last Admin: 06/18/18 17:35 Dose: 4 mg Hydroxyzine HCl (Atarax) 50 mg PO Q6H PRN PRN Reason: Anxiety Last Admin: 06/24/18 17:34 Dose: 50 mg Insulin Aspart (Novolog) 0 unit SC [facility]; Protocol Last Admin: 06/26/18 08:06 Dose: Not Given Lorazepam (Ativan) 0.5 mg IVP HS PRN PRN Reason: Insomnia Last Admin: 06/25/18 22:39 Dose: 0.5 mg Magnesium Oxide (Mag-Ox) 400 mg PO BID [facility] Last Admin: 06/25/18 17:44 Dose: 400 mg Metformin HCl (Glucophage) 1,000 mg PO BID [facility] Last Admin: 06/25/18 17:44 Dose: 1,000 mg Mirtazapine (Remeron) 15 mg PO HS [facility] Last Admin: 06/25/18 21:01 Dose: 15 mg Morphine Sulfate (Morphine) 4 mg IVP Q4 PRN PRN Reason: Pain, moderate (4-7) Last Admin: 06/26/18 08:08 Dose: 4 mg Multivitamins (Hexavitamin) 1 tab PO DAILY [facility] Last Admin: 06/25/18 10:55 Dose: 1 tab Nicotine (Nicoderm Cq) 1 patch TD DAILY [facility] Last Admin: 06/25/18 10:58 Dose: 1 patch Ondansetron HCl (Zofran Inj) 4 mg IVP Q8 PRN PRN Reason: Nausea/Vomiting Last Admin: 06/26/18 02:51 Dose: 4 mg Pantoprazole Sodium (Protonix Inj) 40 mg IVP Q12H [facility] Last Admin: 06/26/18 08:07 Dose: 40 mg Sitagliptin Phosphate (Januvia) 25 mg PO DAILY [facility] Last Admin: 06/25/18 10:57 Dose: 25 mg Thiamine HCl (Vitamin B1 Tab) 100 mg PO DAILY [facility] Last Admin: 06/25/18 10:56 Dose: 100 mg Trazodone HCl (Desyrel) 100 mg PO HS PRN PRN Reason: Insomnia Last Admin: 06/22/18 21:33 Dose: 100 mg - Labs Labs: 06/24/18 07:05 06/24/18 07:05 PT 10.4 SECONDS (9.7-12.2) 06/23/18 06:24 INR 1.0 06/23/18 06:24 - Constitutional Appears: Non-toxic, No Acute Distress - Respiratory Exam Respiratory Exam: NORMAL BREATHING PATTERN - Cardiovascular Exam Cardiovascular Exam: REGULAR RHYTHM, +S1, +S2 - GI/Abdominal Exam GI & Abdominal Exam: Soft. absent: Distended, Firm, Guarding, Rigid, Tenderness, Rebound Additional comments: G-tube in place Dressing CDI - Neurological Exam Neurological Exam: Alert, Awake Assessment and Plan - Assessment and Plan (Free Text) Assessment: 42M with esophageal stricture, with stiven gastrostomy POD#3 Plan: - Continue tube feeds - patient cleared for DC with outpatient follow-up for scopes Discussed with Attendings Dago Pedroza, PGY3 <Derrick Fitzpatrick - Last Filed: 06/29/18 22:09> Objective - Vital Signs/Intake and Output Vital Signs (last 24 hours): Temp Pulse Resp BP Pulse Ox 99.4 F 106 H 20 117/83 94 L 06/29/18 15:00 06/29/18 15:00 06/29/18 15:00 06/29/18 15:00 06/29/18 15:00 Intake and Output: 06/29/18 06/30/18 18:59 06:59 Intake Total 580 Balance 580 - Medications Medications: Current Medications Al Hydrox/Mg Hydrox/Simethicone (Maalox 30 Ml) 30 ml PO Q6H PRN PRN Reason: Indigestion / Heartburn Last Admin: 06/15/18 15:48 Dose: 30 ml Clonidine HCl (Catapres) 0.1 mg PO Q4H PRN PRN Reason: Symptoms of alcohol withdrawl Last Admin: 06/18/18 10:22 Dose: 0.1 mg Cyclobenzaprine HCl (Flexeril) 5 mg PO TIDAC [facility] Last Admin: 06/29/18 17:41 Dose: 5 mg Enoxaparin Sodium (Lovenox) 40 mg SC DAILY [facility] Last Admin: 06/29/18 10:23 Dose: 40 mg Folic Acid (Folic Acid) 1 mg PO DAILY [facility] Last Admin: 06/29/18 10:24 Dose: 1 mg Gabapentin (Neurontin) 300 mg PO BID [facility] Last Admin: 06/29/18 17:41 Dose: 300 mg Glimepiride (Amaryl) 4 mg PO BID [facility] Last Admin: 06/18/18 17:35 Dose: 4 mg Hydroxyzine HCl (Atarax) 50 mg PO Q6H PRN PRN Reason: Anxiety Last Admin: 06/24/18 17:34 Dose: 50 mg Insulin Aspart (Novolog) 0 unit SC [facility]; Protocol Last Admin: 06/29/18 21:14 Dose: Not Given Lorazepam (Ativan) 0.5 mg IVP HS PRN PRN Reason: Insomnia Last Admin: 06/28/18 22:52 Dose: 0.5 mg Magnesium Oxide (Mag-Ox) 400 mg PO BID [facility] Last Admin: 06/29/18 17:41 Dose: 400 mg Metformin HCl (Glucophage) 1,000 mg PO BID [facility] Last Admin: 06/29/18 17:41 Dose: 1,000 mg Mirtazapine (Remeron) 15 mg PO HS [facility] Last Admin: 06/28/18 22:02 Dose: 15 mg Morphine Sulfate (Morphine) 4 mg IVP Q4 PRN PRN Reason: Pain, moderate (4-7) Last Admin: 06/29/18 20:40 Dose: 4 mg Multivitamins (Hexavitamin) 1 tab PO DAILY [facility] Last Admin: 06/29/18 10:26 Dose: Not Given Nicotine (Nicoderm Cq) 1 patch TD DAILY [facility] Last Admin: 06/29/18 10:24 Dose: 1 patch Ondansetron HCl (Zofran Inj) 4 mg IVP Q8 PRN PRN Reason: Nausea/Vomiting Last Admin: 06/29/18 17:41 Dose: 4 mg Pantoprazole Sodium (Protonix Inj) 40 mg IVP Q12H [facility] Last Admin: 06/29/18 08:30 Dose: 40 mg Sitagliptin Phosphate (Januvia) 25 mg PO DAILY [facility] Last Admin: 06/29/18 10:24 Dose: 25 mg Thiamine HCl (Vitamin B1 Tab) 100 mg PO DAILY [facility] Last Admin: 06/29/18 10:24 Dose: 100 mg Trazodone HCl (Desyrel) 100 mg PO HS PRN PRN Reason: Insomnia Last Admin: 06/22/18 21:33 Dose: 100 mg - Labs Labs: 06/27/18 06:51 06/27/18 06:51 PT 10.4 SECONDS (9.7-12.2) 06/23/18 06:24 INR 1.0 06/23/18 06:24 Attending/Attestation - Attestation I have personally seen and examined this patient.: Yes I have fully participated in the care of the patient.: Yes I have reviewed all pertinent clinical information, including history, physical exam and plan: Yes Notes (Text): Pt was seen and examined at bedside Agree with above note and assessment Pt is stable clinically Tolerating bolus feed CT surgery f.u as out pt Plan d.w pt in detail.
[2018-06-26] MEDS: Enoxaparin 40 mg Syringe SC SCH (11:00)
[2018-06-26] MEDS: Magnesium Oxide 400 mg Tab UD PO SCH ×2 (11:00→18:13)
[2018-06-26] MEDS: Multiple Vitamins Tab PO SCH (11:47)
[2018-06-27] MEDS: Morphine 4 MG/ML VIAL IVP PRN ×4 (06:00→20:38)
[2018-06-27 07:03] LABS: BASO % 0.6 % (0.0-2.0); EOS # 0.3 K/uL (0.0-0.7); HEMOGLOBIN 11.7 g/dL (12.0-18.0); LYMPH # 1.8 K/uL (1.0-4.3); LYMPH % 28.2 % (20.0-40.0); MEAN CORPUSCULAR HEMOGLOBIN 27.8 pg (27.0-31.0); MEAN PLATELET VOLUME 7.7 fL (7.2-11.7); MONO # 0.6 K/uL (0.0-0.8); MONO % 9.8 % (0.0-10.0); NEUT # 3.7 K/uL (1.8-7.0); NEUT % 57.4 % (50.0-75.0); RBC 4.21 Mil/uL (4.40-5.90); RED CELL DISTRIBUTION WIDTH 17.1 % (11.5-14.5); WHITE BLOOD COUNT 6.5 K/uL (4.8-10.8)
[2018-06-27 07:17] LABS: ALB/GLOB RATIO 1.1 (1.0-2.1); ALBUMIN 3.1 g/dL (3.5-5.0); ALT/SGPT 30 U/L (21-72); AST/SGOT 21 U/L (17-59); BLOOD UREA NITROGEN 4 mg/dL (9-20); CALCIUM 8.4 mg/dl (8.6-10.4); GFR NON-AFRICAN AMERICAN > 60
[2018-06-27 07:21] LABS: MEAN CELL VOLUME 84.3 fL (80.0-94.0)
[2018-06-27] MEDS: (Novolog) Insulin Aspart, Recombinant 100 u/ml 10 ml vial SC SCH ×4 (07:30→22:36)
[2018-06-27] MEDS: Multiple Vitamins Tab PO SCH (10:25)
[2018-06-27] MEDS: Magnesium Oxide 400 mg Tab UD PO SCH ×2 (10:25→17:06)
[2018-06-27] MEDS: Enoxaparin 40 mg Syringe SC SCH (10:26)
--- NOTE | 2018-06-27 11:46 | CP.PCM.PCO ---
Physician Communication Note - Physician Communication Note Physician Communication Note: Pt is seen yesterday briefly. Stabilized. Psych will sign off
--- NOTE | 2018-06-27 19:43 | CP.PCM.PN ---
Subjective - Date & Time of Evaluation Date of Evaluation: 06/27/18 Time of Evaluation: 07:15 - Subjective Subjective: clinically same Objective - Vital Signs/Intake and Output Vital Signs (last 24 hours): Temp Pulse Resp BP Pulse Ox 98.2 F 108 H 20 111/74 99 06/27/18 17:40 06/27/18 17:40 06/27/18 17:40 06/27/18 17:40 06/27/18 17:40 Intake and Output: 06/27/18 06/28/18 18:59 06:59 Intake Total 340 Balance 340 - Medications Medications: Current Medications Al Hydrox/Mg Hydrox/Simethicone (Maalox 30 Ml) 30 ml PO Q6H PRN PRN Reason: Indigestion / Heartburn Last Admin: 06/15/18 15:48 Dose: 30 ml Clonidine HCl (Catapres) 0.1 mg PO Q4H PRN PRN Reason: Symptoms of alcohol withdrawl Last Admin: 06/18/18 10:22 Dose: 0.1 mg Cyclobenzaprine HCl (Flexeril) 5 mg PO TIDAC [facility] Last Admin: 06/27/18 17:06 Dose: 5 mg Enoxaparin Sodium (Lovenox) 40 mg SC DAILY [facility] Last Admin: 06/27/18 10:26 Dose: Not Given Folic Acid (Folic Acid) 1 mg PO DAILY [facility] Last Admin: 06/27/18 10:25 Dose: 1 mg Gabapentin (Neurontin) 300 mg PO BID [facility] Last Admin: 06/27/18 17:06 Dose: 300 mg Glimepiride (Amaryl) 4 mg PO BID [facility] Last Admin: 06/18/18 17:35 Dose: 4 mg Hydroxyzine HCl (Atarax) 50 mg PO Q6H PRN PRN Reason: Anxiety Last Admin: 06/24/18 17:34 Dose: 50 mg Insulin Aspart (Novolog) 0 unit SC [facility]; Protocol Last Admin: 06/27/18 16:20 Dose: Not Given Lorazepam (Ativan) 0.5 mg IVP HS PRN PRN Reason: Insomnia Last Admin: 06/26/18 22:08 Dose: 0.5 mg Magnesium Oxide (Mag-Ox) 400 mg PO BID [facility] Last Admin: 06/27/18 17:06 Dose: 400 mg Metformin HCl (Glucophage) 1,000 mg PO BID [facility] Last Admin: 06/27/18 17:06 Dose: 1,000 mg Mirtazapine (Remeron) 15 mg PO HS [facility] Last Admin: 06/26/18 21:07 Dose: 15 mg Multivitamins (Hexavitamin) 1 tab PO DAILY [facility] Last Admin: 06/27/18 10:25 Dose: 1 tab Nicotine (Nicoderm Cq) 1 patch TD DAILY [facility] Last Admin: 06/27/18 10:24 Dose: 1 patch Ondansetron HCl (Zofran Inj) 4 mg IVP Q8 PRN PRN Reason: Nausea/Vomiting Last Admin: 06/27/18 15:55 Dose: 4 mg Pantoprazole Sodium (Protonix Inj) 40 mg IVP Q12H [facility] Last Admin: 06/27/18 08:32 Dose: 40 mg Sitagliptin Phosphate (Januvia) 25 mg PO DAILY [facility] Last Admin: 06/27/18 10:26 Dose: Not Given Thiamine HCl (Vitamin B1 Tab) 100 mg PO DAILY [facility] Last Admin: 06/27/18 10:24 Dose: 100 mg Trazodone HCl (Desyrel) 100 mg PO HS PRN PRN Reason: Insomnia Last Admin: 06/22/18 21:33 Dose: 100 mg - Labs Labs: 06/27/18 06:51 06/27/18 06:51 PT 10.4 SECONDS (9.7-12.2) 06/23/18 06:24 INR 1.0 06/23/18 06:24 Assessment and Plan (1) Alcohol abuse Status: Acute (2) Alcohol withdrawal Status: Acute (3) Airway compromise Status: Acute (4) Alcohol intoxication Status: Acute (5) Alcohol use disorder, severe, dependence Status: Acute (6) Alcoholic pancreatitis Status: Acute (7) Colitis Status: Acute (8) DKA (diabetic ketoacidoses) Status: Acute (9) Dehydration Status: Acute (10) Esophagitis Status: Acute (11) Hyperglycemia Status: Acute (12) Hypokalemia Status: Acute (13) Hyponatremia Status: Acute (14) Seizure Status: Acute (15) Throat pain in adult Status: Acute (16) Upper gastrointestinal hemorrhage Status: Acute (17) Vomiting Status: Acute
[2018-06-28] MEDS: Morphine 4 MG/ML VIAL IVP PRN ×5 (03:42→22:02)
--- NOTE | 2018-06-28 06:34 | CP.PCM.PN ---
<Evi Villanueva - Last Filed: 06/28/18 07:48> Subjective - Date & Time of Evaluation Date of Evaluation: 06/27/18 Time of Evaluation: 07:00 - Subjective Subjective: GENERAL SURGERY PROGRESS NOTE FOR DR. FITZPATRICK Patient seen and examined at bedside. He reports some abdominal pain. He is having bowel funciton. He reports getting OOB to bathroom and has pain when he does so. Objective - Vital Signs/Intake and Output Vital Signs (last 24 hours): Temp Pulse Resp BP Pulse Ox 98.1 F 89 20 107/70 98 06/28/18 00:00 06/28/18 00:00 06/28/18 00:00 06/28/18 00:00 06/28/18 00:00 Intake and Output: 06/27/18 06/28/18 18:59 06:59 Intake Total 340 400 Output Total 100 Balance 340 300 - Medications Medications: Current Medications Al Hydrox/Mg Hydrox/Simethicone (Maalox 30 Ml) 30 ml PO Q6H PRN PRN Reason: Indigestion / Heartburn Last Admin: 06/15/18 15:48 Dose: 30 ml Clonidine HCl (Catapres) 0.1 mg PO Q4H PRN PRN Reason: Symptoms of alcohol withdrawl Last Admin: 06/18/18 10:22 Dose: 0.1 mg Cyclobenzaprine HCl (Flexeril) 5 mg PO TIDAC [facility] Last Admin: 06/27/18 17:06 Dose: 5 mg Enoxaparin Sodium (Lovenox) 40 mg SC DAILY [facility] Last Admin: 06/27/18 10:26 Dose: Not Given Folic Acid (Folic Acid) 1 mg PO DAILY [facility] Last Admin: 06/27/18 10:25 Dose: 1 mg Gabapentin (Neurontin) 300 mg PO BID [facility] Last Admin: 06/27/18 17:06 Dose: 300 mg Glimepiride (Amaryl) 4 mg PO BID [facility] Last Admin: 06/18/18 17:35 Dose: 4 mg Hydroxyzine HCl (Atarax) 50 mg PO Q6H PRN PRN Reason: Anxiety Last Admin: 06/24/18 17:34 Dose: 50 mg Insulin Aspart (Novolog) 0 unit SC [facility]; Protocol Last Admin: 06/27/18 22:36 Dose: Not Given Lorazepam (Ativan) 0.5 mg IVP HS PRN PRN Reason: Insomnia Last Admin: 06/27/18 21:38 Dose: 0.5 mg Magnesium Oxide (Mag-Ox) 400 mg PO BID [facility] Last Admin: 06/27/18 17:06 Dose: 400 mg Metformin HCl (Glucophage) 1,000 mg PO BID [facility] Last Admin: 06/27/18 17:06 Dose: 1,000 mg Mirtazapine (Remeron) 15 mg PO HS [facility] Last Admin: 06/27/18 21:30 Dose: 15 mg Morphine Sulfate (Morphine) 4 mg IVP Q4 PRN PRN Reason: Pain, moderate (4-7) Last Admin: 06/28/18 03:42 Dose: 4 mg Multivitamins (Hexavitamin) 1 tab PO DAILY [facility] Last Admin: 06/27/18 10:25 Dose: 1 tab Nicotine (Nicoderm Cq) 1 patch TD DAILY [facility] Last Admin: 06/27/18 10:24 Dose: 1 patch Ondansetron HCl (Zofran Inj) 4 mg IVP Q8 PRN PRN Reason: Nausea/Vomiting Last Admin: 06/28/18 03:47 Dose: 4 mg Pantoprazole Sodium (Protonix Inj) 40 mg IVP Q12H [facility] Last Admin: 06/27/18 19:42 Dose: 40 mg Sitagliptin Phosphate (Januvia) 25 mg PO DAILY [facility] Last Admin: 06/27/18 10:26 Dose: Not Given Thiamine HCl (Vitamin B1 Tab) 100 mg PO DAILY [facility] Last Admin: 06/27/18 10:24 Dose: 100 mg Trazodone HCl (Desyrel) 100 mg PO HS PRN PRN Reason: Insomnia Last Admin: 06/22/18 21:33 Dose: 100 mg - Labs Labs: 06/27/18 06:51 06/27/18 06:51 PT 10.4 SECONDS (9.7-12.2) 06/23/18 06:24 INR 1.0 06/23/18 06:24 - Constitutional Appears: Non-toxic, No Acute Distress - Head Exam Head Exam: ATRAUMATIC, NORMAL INSPECTION - Eye Exam Eye Exam: EOMI, Normal appearance - Respiratory Exam Respiratory Exam: NORMAL BREATHING PATTERN. absent: Respiratory Distress - Cardiovascular Exam Cardiovascular Exam: +S1, +S2 - GI/Abdominal Exam GI & Abdominal Exam: Soft, Tenderness (aly-incisional). absent: Distended, Firm, Guarding, Rigid, Rebound Additional comments: Dressing clean/dry/intact G tube in place - Neurological Exam Neurological Exam: Alert, Awake, Oriented x3 - Psychiatric Exam Psychiatric exam: Normal Affect, Normal Mood - Skin Skin Exam: Dry, Normal Color Assessment and Plan - Assessment and Plan (Free Text) Assessment: 42yo M with esophageal stricture and esophagitis s/p stiven gastrostomy POD#4 - Tolerating tube feeds via G tube - As per thoracic surgery, EGD as outpatient for possible balloon dilation/stent - Encourage ambulation and IS use - DVT PPx - Clear for DC from surgical standpoint - Discussed plan with Dr. Amari Villanueva PGY-4 <Derrick Fitzpatrick - Last Filed: 06/29/18 22:11> Objective - Vital Signs/Intake and Output Vital Signs (last 24 hours): Temp Pulse Resp BP Pulse Ox 99.4 F 106 H 20 117/83 94 L 06/29/18 15:00 06/29/18 15:00 06/29/18 15:00 06/29/18 15:00 06/29/18 15:00 Intake and Output: 06/29/18 06/30/18 18:59 06:59 Intake Total 580 Balance 580 - Medications Medications: Current Medications Al Hydrox/Mg Hydrox/Simethicone (Maalox 30 Ml) 30 ml PO Q6H PRN PRN Reason: Indigestion / Heartburn Last Admin: 06/15/18 15:48 Dose: 30 ml Clonidine HCl (Catapres) 0.1 mg PO Q4H PRN PRN Reason: Symptoms of alcohol withdrawl Last Admin: 06/18/18 10:22 Dose: 0.1 mg Cyclobenzaprine HCl (Flexeril) 5 mg PO TIDAC [facility] Last Admin: 06/29/18 17:41 Dose: 5 mg Enoxaparin Sodium (Lovenox) 40 mg SC DAILY [facility] Last Admin: 06/29/18 10:23 Dose: 40 mg Folic Acid (Folic Acid) 1 mg PO DAILY [facility] Last Admin: 06/29/18 10:24 Dose: 1 mg Gabapentin (Neurontin) 300 mg PO BID [facility] Last Admin: 06/29/18 17:41 Dose: 300 mg Glimepiride (Amaryl) 4 mg PO BID [facility] Last Admin: 06/18/18 17:35 Dose: 4 mg Hydroxyzine HCl (Atarax) 50 mg PO Q6H PRN PRN Reason: Anxiety Last Admin: 06/24/18 17:34 Dose: 50 mg Insulin Aspart (Novolog) 0 unit SC [facility]; Protocol Last Admin: 06/29/18 21:14 Dose: Not Given Lorazepam (Ativan) 0.5 mg IVP HS PRN PRN Reason: Insomnia Last Admin: 06/28/18 22:52 Dose: 0.5 mg Magnesium Oxide (Mag-Ox) 400 mg PO BID [facility] Last Admin: 06/29/18 17:41 Dose: 400 mg Metformin HCl (Glucophage) 1,000 mg PO BID [facility] Last Admin: 06/29/18 17:41 Dose: 1,000 mg Mirtazapine (Remeron) 15 mg PO HS [facility] Last Admin: 06/28/18 22:02 Dose: 15 mg Morphine Sulfate (Morphine) 4 mg IVP Q4 PRN PRN Reason: Pain, moderate (4-7) Last Admin: 06/29/18 20:40 Dose: 4 mg Multivitamins (Hexavitamin) 1 tab PO DAILY [facility] Last Admin: 06/29/18 10:26 Dose: Not Given Nicotine (Nicoderm Cq) 1 patch TD DAILY [facility] Last Admin: 06/29/18 10:24 Dose: 1 patch Ondansetron HCl (Zofran Inj) 4 mg IVP Q8 PRN PRN Reason: Nausea/Vomiting Last Admin: 06/29/18 17:41 Dose: 4 mg Pantoprazole Sodium (Protonix Inj) 40 mg IVP Q12H [facility] Last Admin: 06/29/18 08:30 Dose: 40 mg Sitagliptin Phosphate (Januvia) 25 mg PO DAILY [facility] Last Admin: 06/29/18 10:24 Dose: 25 mg Thiamine HCl (Vitamin B1 Tab) 100 mg PO DAILY [facility] Last Admin: 06/29/18 10:24 Dose: 100 mg Trazodone HCl (Desyrel) 100 mg PO HS PRN PRN Reason: Insomnia Last Admin: 06/22/18 21:33 Dose: 100 mg - Labs Labs: 06/27/18 06:51 06/27/18 06:51 PT 10.4 SECONDS (9.7-12.2) 06/23/18 06:24 INR 1.0 06/23/18 06:24 Attending/Attestation - Attestation I have personally seen and examined this patient.: Yes I have fully participated in the care of the patient.: Yes I have reviewed all pertinent clinical information, including history, physical exam and plan: Yes Notes (Text): Pt was seen and examined at bedside Agree with above note and assessment As per CT surgery, f.u as out pt for further treatment f.u as out pt Plan d.w pt in detail.
[2018-06-28] MEDS: (Novolog) Insulin Aspart, Recombinant 100 u/ml 10 ml vial SC SCH ×4 (08:21→21:24)
[2018-06-28] MEDS: Multiple Vitamins Tab PO SCH (10:37)
[2018-06-28] MEDS: Magnesium Oxide 400 mg Tab UD PO SCH ×2 (10:37→17:31)
[2018-06-28] MEDS: Enoxaparin 40 mg Syringe SC SCH (10:38)
--- NOTE | 2018-06-28 14:12 | CP.PCM.PN ---
Subjective - Date & Time of Evaluation Date of Evaluation: 06/28/18 Time of Evaluation: 07:15 - Subjective Subjective: clinically same Objective - Vital Signs/Intake and Output Vital Signs (last 24 hours): Temp Pulse Resp BP Pulse Ox 97.9 F 92 H 20 128/84 96 06/28/18 08:56 06/28/18 08:56 06/28/18 08:56 06/28/18 08:56 06/28/18 08:56 Intake and Output: 06/28/18 06/28/18 06:59 18:59 Intake Total 400 Output Total 100 Balance 300 - Medications Medications: Current Medications Al Hydrox/Mg Hydrox/Simethicone (Maalox 30 Ml) 30 ml PO Q6H PRN PRN Reason: Indigestion / Heartburn Last Admin: 06/15/18 15:48 Dose: 30 ml Clonidine HCl (Catapres) 0.1 mg PO Q4H PRN PRN Reason: Symptoms of alcohol withdrawl Last Admin: 06/18/18 10:22 Dose: 0.1 mg Cyclobenzaprine HCl (Flexeril) 5 mg PO TIDAC [facility] Last Admin: 06/28/18 12:30 Dose: 5 mg Enoxaparin Sodium (Lovenox) 40 mg SC DAILY [facility] Last Admin: 06/28/18 10:38 Dose: 40 mg Folic Acid (Folic Acid) 1 mg PO DAILY [facility] Last Admin: 06/28/18 10:37 Dose: 1 mg Gabapentin (Neurontin) 300 mg PO BID [facility] Last Admin: 06/28/18 10:38 Dose: 300 mg Glimepiride (Amaryl) 4 mg PO BID [facility] Last Admin: 06/18/18 17:35 Dose: 4 mg Hydroxyzine HCl (Atarax) 50 mg PO Q6H PRN PRN Reason: Anxiety Last Admin: 06/24/18 17:34 Dose: 50 mg Insulin Aspart (Novolog) 0 unit SC [facility]; Protocol Last Admin: 06/28/18 12:30 Dose: Not Given Lorazepam (Ativan) 0.5 mg IVP HS PRN PRN Reason: Insomnia Last Admin: 06/27/18 21:38 Dose: 0.5 mg Magnesium Oxide (Mag-Ox) 400 mg PO BID [facility] Last Admin: 06/28/18 10:37 Dose: 400 mg Metformin HCl (Glucophage) 1,000 mg PO BID [facility] Last Admin: 06/28/18 10:38 Dose: 1,000 mg Mirtazapine (Remeron) 15 mg PO HS [facility] Last Admin: 06/27/18 21:30 Dose: 15 mg Morphine Sulfate (Morphine) 4 mg IVP Q4 PRN PRN Reason: Pain, moderate (4-7) Last Admin: 06/28/18 13:28 Dose: 4 mg Multivitamins (Hexavitamin) 1 tab PO DAILY [facility] Last Admin: 06/28/18 10:37 Dose: Not Given Nicotine (Nicoderm Cq) 1 patch TD DAILY [facility] Last Admin: 06/28/18 10:38 Dose: 1 patch Ondansetron HCl (Zofran Inj) 4 mg IVP Q8 PRN PRN Reason: Nausea/Vomiting Last Admin: 06/28/18 03:47 Dose: 4 mg Pantoprazole Sodium (Protonix Inj) 40 mg IVP Q12H [facility] Last Admin: 06/28/18 08:39 Dose: 40 mg Sitagliptin Phosphate (Januvia) 25 mg PO DAILY [facility] Last Admin: 06/28/18 10:36 Dose: 25 mg Thiamine HCl (Vitamin B1 Tab) 100 mg PO DAILY [facility] Last Admin: 06/28/18 10:36 Dose: 100 mg Trazodone HCl (Desyrel) 100 mg PO HS PRN PRN Reason: Insomnia Last Admin: 06/22/18 21:33 Dose: 100 mg - Labs Labs: 06/27/18 06:51 06/27/18 06:51 PT 10.4 SECONDS (9.7-12.2) 06/23/18 06:24 INR 1.0 06/23/18 06:24 - Constitutional Appears: Well - Head Exam Head Exam: ATRAUMATIC, NORMAL INSPECTION, NORMOCEPHALIC - Eye Exam Eye Exam: EOMI, Normal appearance, PERRL Pupil Exam: NORMAL ACCOMODATION, PERRL - ENT Exam ENT Exam: Mucous Membranes Moist, Normal Exam - Neck Exam Neck Exam: Full ROM, Normal Inspection. absent: Lymphadenopathy - Respiratory Exam Respiratory Exam: Decreased Breath Sounds - Cardiovascular Exam Cardiovascular Exam: REGULAR RHYTHM, +S1, +S2 - GI/Abdominal Exam GI & Abdominal Exam: Soft, Diminished Bowel Sounds - Rectal Exam Rectal Exam: Deferred Assessment and Plan (1) Alcohol abuse Status: Acute (2) Alcohol withdrawal Status: Acute (3) Airway compromise Status: Acute (4) Alcohol intoxication Status: Acute (5) Alcohol use disorder, severe, dependence Status: Acute (6) Alcoholic pancreatitis Status: Acute (7) Colitis Status: Acute (8) DKA (diabetic ketoacidoses) Status: Acute (9) Dehydration Status: Acute (10) Esophagitis Status: Acute (11) Hyperglycemia Status: Acute (12) Hypokalemia Status: Acute (13) Hyponatremia Status: Acute (14) Seizure Status: Acute (15) Throat pain in adult Status: Acute (16) Upper gastrointestinal hemorrhage Status: Acute (17) Vomiting Status: Acute
[2018-06-29] MEDS: Morphine 4 MG/ML VIAL IVP PRN ×5 (04:01→20:40)
[2018-06-29] MEDS: (Novolog) Insulin Aspart, Recombinant 100 u/ml 10 ml vial SC SCH ×4 (08:08→21:14)
[2018-06-29] MEDS: Enoxaparin 40 mg Syringe SC SCH (10:23)
[2018-06-29] MEDS: Magnesium Oxide 400 mg Tab UD PO SCH ×2 (10:24→17:41)
[2018-06-29] MEDS: Multiple Vitamins Tab PO SCH (10:26)
--- NOTE | 2018-06-29 15:16 | CP.PCM.PN ---
Subjective - Date & Time of Evaluation Date of Evaluation: 06/29/18 Time of Evaluation: 07:15 - Subjective Subjective: clinically same Objective - Vital Signs/Intake and Output Vital Signs (last 24 hours): Temp Pulse Resp BP Pulse Ox 99.7 F H 99 H 20 118/80 96 06/29/18 08:25 06/29/18 08:25 06/29/18 08:25 06/29/18 08:25 06/29/18 08:25 Intake and Output: 06/29/18 06/29/18 06:59 18:59 Intake Total 780 Balance 780 - Medications Medications: Current Medications Al Hydrox/Mg Hydrox/Simethicone (Maalox 30 Ml) 30 ml PO Q6H PRN PRN Reason: Indigestion / Heartburn Last Admin: 06/15/18 15:48 Dose: 30 ml Clonidine HCl (Catapres) 0.1 mg PO Q4H PRN PRN Reason: Symptoms of alcohol withdrawl Last Admin: 06/18/18 10:22 Dose: 0.1 mg Cyclobenzaprine HCl (Flexeril) 5 mg PO TIDAC [facility] Last Admin: 06/29/18 12:29 Dose: 5 mg Enoxaparin Sodium (Lovenox) 40 mg SC DAILY [facility] Last Admin: 06/29/18 10:23 Dose: 40 mg Folic Acid (Folic Acid) 1 mg PO DAILY [facility] Last Admin: 06/29/18 10:24 Dose: 1 mg Gabapentin (Neurontin) 300 mg PO BID [facility] Last Admin: 06/29/18 10:24 Dose: 300 mg Glimepiride (Amaryl) 4 mg PO BID [facility] Last Admin: 06/18/18 17:35 Dose: 4 mg Hydroxyzine HCl (Atarax) 50 mg PO Q6H PRN PRN Reason: Anxiety Last Admin: 06/24/18 17:34 Dose: 50 mg Insulin Aspart (Novolog) 0 unit SC [facility]; Protocol Last Admin: 06/29/18 12:22 Dose: Not Given Lorazepam (Ativan) 0.5 mg IVP HS PRN PRN Reason: Insomnia Last Admin: 06/28/18 22:52 Dose: 0.5 mg Magnesium Oxide (Mag-Ox) 400 mg PO BID [facility] Last Admin: 06/29/18 10:24 Dose: 400 mg Metformin HCl (Glucophage) 1,000 mg PO BID [facility] Last Admin: 06/29/18 10:24 Dose: 1,000 mg Mirtazapine (Remeron) 15 mg PO HS [facility] Last Admin: 06/28/18 22:02 Dose: 15 mg Morphine Sulfate (Morphine) 4 mg IVP Q4 PRN PRN Reason: Pain, moderate (4-7) Last Admin: 06/29/18 12:30 Dose: 4 mg Multivitamins (Hexavitamin) 1 tab PO DAILY [facility] Last Admin: 06/29/18 10:26 Dose: Not Given Nicotine (Nicoderm Cq) 1 patch TD DAILY [facility] Last Admin: 06/29/18 10:24 Dose: 1 patch Ondansetron HCl (Zofran Inj) 4 mg IVP Q8 PRN PRN Reason: Nausea/Vomiting Last Admin: 06/29/18 04:00 Dose: 4 mg Pantoprazole Sodium (Protonix Inj) 40 mg IVP Q12H [facility] Last Admin: 06/29/18 08:30 Dose: 40 mg Sitagliptin Phosphate (Januvia) 25 mg PO DAILY [facility] Last Admin: 06/29/18 10:24 Dose: 25 mg Thiamine HCl (Vitamin B1 Tab) 100 mg PO DAILY [facility] Last Admin: 06/29/18 10:24 Dose: 100 mg Trazodone HCl (Desyrel) 100 mg PO HS PRN PRN Reason: Insomnia Last Admin: 06/22/18 21:33 Dose: 100 mg - Labs Labs: 06/27/18 06:51 06/27/18 06:51 PT 10.4 SECONDS (9.7-12.2) 06/23/18 06:24 INR 1.0 06/23/18 06:24 Assessment and Plan (1) Alcohol abuse Status: Acute (2) Alcohol withdrawal Status: Acute (3) Airway compromise Status: Acute (4) Alcohol intoxication Status: Acute (5) Alcohol use disorder, severe, dependence Status: Acute (6) Alcoholic pancreatitis Status: Acute (7) Colitis Status: Acute (8) DKA (diabetic ketoacidoses) Status: Acute (9) Dehydration Status: Acute (10) Esophagitis Status: Acute (11) Hyperglycemia Status: Acute (12) Hypokalemia Status: Acute (13) Hyponatremia Status: Acute (14) Seizure Status: Acute (15) Throat pain in adult Status: Acute (16) Upper gastrointestinal hemorrhage Status: Acute (17) Vomiting Status: Acute
[2018-06-30] MEDS: Morphine 4 MG/ML VIAL IVP PRN ×6 (00:24→21:05)
[2018-06-30] MEDS: (Novolog) Insulin Aspart, Recombinant 100 u/ml 10 ml vial SC SCH ×4 (08:00→21:30)
[2018-06-30] MEDS: Multiple Vitamins Tab PO SCH (10:55)
[2018-06-30] MEDS: Magnesium Oxide 400 mg Tab UD PO SCH ×2 (10:55→17:37)
[2018-06-30] MEDS: Enoxaparin 40 mg Syringe SC SCH (11:00)
--- NOTE | 2018-06-30 17:03 | CP.PCM.PN ---
Subjective - Date & Time of Evaluation Date of Evaluation: 06/30/18 Time of Evaluation: 11:00 - Subjective Subjective: alert, awake, ambulatory, no vomiting or distress. Objective - Vital Signs/Intake and Output Vital Signs (last 24 hours): Temp Pulse Resp BP Pulse Ox 98.4 F 89 20 120/88 98 06/30/18 16:00 06/30/18 16:00 06/30/18 16:00 06/30/18 16:00 06/30/18 16:00 Intake and Output: 06/30/18 06/30/18 06:59 18:59 Intake Total 680 Balance 680 - Medications Medications: Current Medications Al Hydrox/Mg Hydrox/Simethicone (Maalox 30 Ml) 30 ml PO Q6H PRN PRN Reason: Indigestion / Heartburn Last Admin: 06/15/18 15:48 Dose: 30 ml Clonidine HCl (Catapres) 0.1 mg PO Q4H PRN PRN Reason: Symptoms of alcohol withdrawl Last Admin: 06/18/18 10:22 Dose: 0.1 mg Cyclobenzaprine HCl (Flexeril) 5 mg PO TIDAC [facility] Last Admin: 06/30/18 12:42 Dose: Not Given Enoxaparin Sodium (Lovenox) 40 mg SC DAILY [facility] Last Admin: 06/30/18 11:00 Dose: 40 mg Folic Acid (Folic Acid) 1 mg PO DAILY [facility] Last Admin: 06/30/18 10:54 Dose: 1 mg Gabapentin (Neurontin) 300 mg PO BID [facility] Last Admin: 06/30/18 10:54 Dose: 300 mg Glimepiride (Amaryl) 4 mg PO BID [facility] Last Admin: 06/18/18 17:35 Dose: 4 mg Hydroxyzine HCl (Atarax) 50 mg PO Q6H PRN PRN Reason: Anxiety Last Admin: 06/24/18 17:34 Dose: 50 mg Insulin Aspart (Novolog) 0 unit SC [facility]; Protocol Last Admin: 06/30/18 12:40 Dose: 1 units Lorazepam (Ativan) 0.5 mg IVP HS PRN PRN Reason: Insomnia Last Admin: 06/29/18 22:30 Dose: 0.5 mg Magnesium Oxide (Mag-Ox) 400 mg PO BID [facility] Last Admin: 06/30/18 10:55 Dose: 400 mg Metformin HCl (Glucophage) 1,000 mg PO BID [facility] Last Admin: 06/30/18 10:55 Dose: 1,000 mg Mirtazapine (Remeron) 15 mg PO HS [facility] Last Admin: 06/29/18 22:30 Dose: 15 mg Morphine Sulfate (Morphine) 4 mg IVP Q4 PRN PRN Reason: Pain, moderate (4-7) Last Admin: 06/30/18 16:52 Dose: 4 mg Multivitamins (Hexavitamin) 1 tab PO DAILY [facility] Last Admin: 06/30/18 10:55 Dose: 1 tab Nicotine (Nicoderm Cq) 1 patch TD DAILY [facility] Last Admin: 06/30/18 10:55 Dose: 1 patch Ondansetron HCl (Zofran Inj) 4 mg IVP Q8 PRN PRN Reason: Nausea/Vomiting Last Admin: 06/30/18 16:21 Dose: 4 mg Pantoprazole Sodium (Protonix Inj) 40 mg IVP Q12H [facility] Last Admin: 06/30/18 08:12 Dose: 40 mg Sitagliptin Phosphate (Januvia) 25 mg PO DAILY [facility] Last Admin: 06/30/18 11:00 Dose: 25 mg Thiamine HCl (Vitamin B1 Tab) 100 mg PO DAILY [facility] Last Admin: 06/30/18 10:55 Dose: 100 mg Trazodone HCl (Desyrel) 100 mg PO HS PRN PRN Reason: Insomnia Last Admin: 06/22/18 21:33 Dose: 100 mg - Labs Labs: 06/27/18 06:51 06/27/18 06:51 PT 10.4 SECONDS (9.7-12.2) 06/23/18 06:24 INR 1.0 06/23/18 06:24 Assessment and Plan - Assessment and Plan (Free Text) Assessment: 42 year old male with severe esophagitis, admitted with dehydration, seen and examined. Alert and oriented x3, ambulatory, claims he has no place to leave due to his drinking problem. Discussed with DR Johann Gill, discharge plan for today. imani turpin arranged for bolus feeding. Advised to follow up with DR Johann Gill in the office in 1 week.Patient is trying to make housing arrangements.
--- NOTE | 2018-06-30 18:42 | CP.PCM.PN ---
Subjective - Date & Time of Evaluation Date of Evaluation: 06/30/18 Time of Evaluation: 07:15 - Subjective Subjective: clinically same Objective - Vital Signs/Intake and Output Vital Signs (last 24 hours): Temp Pulse Resp BP Pulse Ox 98.4 F 89 20 120/88 98 06/30/18 16:00 06/30/18 16:00 06/30/18 16:00 06/30/18 16:00 06/30/18 16:00 Intake and Output: 06/30/18 06/30/18 06:59 18:59 Intake Total 680 Balance 680 - Medications Medications: Current Medications Al Hydrox/Mg Hydrox/Simethicone (Maalox 30 Ml) 30 ml PO Q6H PRN PRN Reason: Indigestion / Heartburn Last Admin: 06/15/18 15:48 Dose: 30 ml Clonidine HCl (Catapres) 0.1 mg PO Q4H PRN PRN Reason: Symptoms of alcohol withdrawl Last Admin: 06/18/18 10:22 Dose: 0.1 mg Cyclobenzaprine HCl (Flexeril) 5 mg PO TIDAC [facility] Last Admin: 06/30/18 16:30 Dose: 5 mg Enoxaparin Sodium (Lovenox) 40 mg SC DAILY [facility] Last Admin: 06/30/18 11:00 Dose: 40 mg Folic Acid (Folic Acid) 1 mg PO DAILY [facility] Last Admin: 06/30/18 10:54 Dose: 1 mg Gabapentin (Neurontin) 300 mg PO BID [facility] Last Admin: 06/30/18 17:37 Dose: 300 mg Glimepiride (Amaryl) 4 mg PO BID [facility] Last Admin: 06/18/18 17:35 Dose: 4 mg Hydroxyzine HCl (Atarax) 50 mg PO Q6H PRN PRN Reason: Anxiety Last Admin: 06/24/18 17:34 Dose: 50 mg Insulin Aspart (Novolog) 0 unit SC [facility]; Protocol Last Admin: 06/30/18 16:30 Dose: Not Given Lorazepam (Ativan) 0.5 mg IVP HS PRN PRN Reason: Insomnia Last Admin: 06/29/18 22:30 Dose: 0.5 mg Magnesium Oxide (Mag-Ox) 400 mg PO BID [facility] Last Admin: 06/30/18 17:37 Dose: 400 mg Metformin HCl (Glucophage) 1,000 mg PO BID [facility] Last Admin: 06/30/18 17:37 Dose: 1,000 mg Mirtazapine (Remeron) 15 mg PO HS [facility] Last Admin: 06/29/18 22:30 Dose: 15 mg Morphine Sulfate (Morphine) 4 mg IVP Q4 PRN PRN Reason: Pain, moderate (4-7) Last Admin: 06/30/18 16:52 Dose: 4 mg Multivitamins (Hexavitamin) 1 tab PO DAILY [facility] Last Admin: 06/30/18 10:55 Dose: 1 tab Nicotine (Nicoderm Cq) 1 patch TD DAILY [facility] Last Admin: 06/30/18 10:55 Dose: 1 patch Ondansetron HCl (Zofran Inj) 4 mg IVP Q8 PRN PRN Reason: Nausea/Vomiting Last Admin: 06/30/18 16:21 Dose: 4 mg Pantoprazole Sodium (Protonix Inj) 40 mg IVP Q12H [facility] Last Admin: 06/30/18 08:12 Dose: 40 mg Sitagliptin Phosphate (Januvia) 25 mg PO DAILY [facility] Last Admin: 06/30/18 11:00 Dose: 25 mg Thiamine HCl (Vitamin B1 Tab) 100 mg PO DAILY [facility] Last Admin: 06/30/18 10:55 Dose: 100 mg Trazodone HCl (Desyrel) 100 mg PO HS PRN PRN Reason: Insomnia Last Admin: 06/22/18 21:33 Dose: 100 mg - Labs Labs: 06/27/18 06:51 06/27/18 06:51 PT 10.4 SECONDS (9.7-12.2) 06/23/18 06:24 INR 1.0 06/23/18 06:24 Assessment and Plan (1) Alcohol abuse Status: Acute (2) Alcohol withdrawal Status: Acute (3) Airway compromise Status: Acute (4) Alcohol intoxication Status: Acute (5) Alcohol use disorder, severe, dependence Status: Acute (6) Alcoholic pancreatitis Status: Acute (7) Colitis Status: Acute (8) DKA (diabetic ketoacidoses) Status: Acute (9) Dehydration Status: Acute (10) Esophagitis Status: Acute (11) Hyperglycemia Status: Acute (12) Hypokalemia Status: Acute (13) Hyponatremia Status: Acute (14) Seizure Status: Acute (15) Throat pain in adult Status: Acute (16) Upper gastrointestinal hemorrhage Status: Acute (17) Vomiting Status: Acute
[2018-07-01] MEDS: Morphine 4 MG/ML VIAL IVP PRN ×3 (01:17→10:46)
[2018-07-01] MEDS: (Novolog) Insulin Aspart, Recombinant 100 u/ml 10 ml vial SC SCH ×4 (08:12→21:31)
[2018-07-01] MEDS: Multiple Vitamins Tab PO SCH (10:50)
[2018-07-01] MEDS: Enoxaparin 40 mg Syringe SC SCH ×2 (10:51→11:10)
[2018-07-01] MEDS: Magnesium Oxide 400 mg Tab UD PO SCH ×2 (10:51→17:16)
--- NOTE | 2018-07-01 14:32 | CP.PCM.PN ---
Subjective - Date & Time of Evaluation Date of Evaluation: 07/01/18 Time of Evaluation: 07:15 - Subjective Subjective: clinically same Objective - Vital Signs/Intake and Output Vital Signs (last 24 hours): Temp Pulse Resp BP Pulse Ox 98.2 F 107 H 20 109/74 96 07/01/18 08:00 07/01/18 08:00 07/01/18 08:00 07/01/18 08:00 07/01/18 08:00 Intake and Output: 07/01/18 07/01/18 06:59 18:59 Intake Total 900 440 Balance 900 440 - Medications Medications: Current Medications Al Hydrox/Mg Hydrox/Simethicone (Maalox 30 Ml) 30 ml PO Q6H PRN PRN Reason: Indigestion / Heartburn Last Admin: 06/15/18 15:48 Dose: 30 ml Clonidine HCl (Catapres) 0.1 mg PO Q4H PRN PRN Reason: Symptoms of alcohol withdrawl Last Admin: 06/18/18 10:22 Dose: 0.1 mg Cyclobenzaprine HCl (Flexeril) 5 mg PO TIDAC [facility] Last Admin: 07/01/18 13:57 Dose: Not Given Folic Acid (Folic Acid) 1 mg PO DAILY [facility] Last Admin: 07/01/18 10:50 Dose: 1 mg Gabapentin (Neurontin) 300 mg PO BID [facility] Last Admin: 07/01/18 10:50 Dose: 300 mg Glimepiride (Amaryl) 4 mg PO BID [facility] Last Admin: 06/18/18 17:35 Dose: 4 mg Hydroxyzine HCl (Atarax) 50 mg PO Q6H PRN PRN Reason: Anxiety Last Admin: 06/24/18 17:34 Dose: 50 mg Insulin Aspart (Novolog) 0 unit SC [facility]; Protocol Last Admin: 07/01/18 12:20 Dose: Not Given Lorazepam (Ativan) 0.5 mg IVP HS PRN PRN Reason: Insomnia Last Admin: 06/29/18 22:30 Dose: 0.5 mg Magnesium Oxide (Mag-Ox) 400 mg PO BID [facility] Last Admin: 07/01/18 10:51 Dose: 400 mg Metformin HCl (Glucophage) 1,000 mg PO BID [facility] Last Admin: 07/01/18 10:50 Dose: 1,000 mg Mirtazapine (Remeron) 15 mg PO HS [facility] Last Admin: 06/30/18 21:18 Dose: 15 mg Morphine Sulfate (Morphine) 4 mg IVP Q4 PRN PRN Reason: Pain, moderate (4-7) Last Admin: 07/01/18 10:46 Dose: 4 mg Multivitamins (Hexavitamin) 1 tab PO DAILY [facility] Last Admin: 07/01/18 10:50 Dose: 1 tab Nicotine (Nicoderm Cq) 1 patch TD DAILY [facility] Last Admin: 07/01/18 10:51 Dose: 1 patch Ondansetron HCl (Zofran Inj) 4 mg IVP Q8 PRN PRN Reason: Nausea/Vomiting Last Admin: 07/01/18 05:45 Dose: 4 mg Pantoprazole Sodium (Protonix Inj) 40 mg IVP Q12H [facility] Last Admin: 07/01/18 10:52 Dose: 40 mg Sitagliptin Phosphate (Januvia) 25 mg PO DAILY [facility] Last Admin: 07/01/18 10:50 Dose: 25 mg Thiamine HCl (Vitamin B1 Tab) 100 mg PO DAILY [facility] Last Admin: 07/01/18 10:50 Dose: 100 mg Trazodone HCl (Desyrel) 100 mg PO HS PRN PRN Reason: Insomnia Last Admin: 06/30/18 21:32 Dose: 100 mg - Labs Labs: 06/27/18 06:51 06/27/18 06:51 PT 10.4 SECONDS (9.7-12.2) 06/23/18 06:24 INR 1.0 06/23/18 06:24 Assessment and Plan (1) Alcohol abuse Status: Acute (2) Alcohol withdrawal Status: Acute (3) Airway compromise Status: Acute (4) Alcohol intoxication Status: Acute (5) Alcohol use disorder, severe, dependence Status: Acute (6) Alcoholic pancreatitis Status: Acute (7) Colitis Status: Acute (8) DKA (diabetic ketoacidoses) Status: Acute (9) Dehydration Status: Acute (10) Esophagitis Status: Acute (11) Hyperglycemia Status: Acute (12) Hypokalemia Status: Acute (13) Hyponatremia Status: Acute (14) Seizure Status: Acute (15) Throat pain in adult Status: Acute (16) Upper gastrointestinal hemorrhage Status: Acute (17) Vomiting Status: Acute
[2018-07-01] MEDS: Oxycodone/Acetaminophen 5/325 mg Tab PO PRN ×2 (16:49→22:37)
[2018-07-02] MEDS: Oxycodone/Acetaminophen 5/325 mg Tab PO PRN ×3 (06:12→18:55)
[2018-07-02] MEDS: (Novolog) Insulin Aspart, Recombinant 100 u/ml 10 ml vial SC SCH ×4 (08:18→21:35)
[2018-07-02] MEDS: Multiple Vitamins Tab PO SCH (10:52)
[2018-07-02] MEDS: Magnesium Oxide 400 mg Tab UD PO SCH ×2 (10:53→17:18)
[2018-07-02] MEDS ORDERED: Pantoprazole 40 mg EC Tab PO SCH (16:30)
--- NOTE | 2018-07-02 18:00 | CP.PCM.PN ---
Subjective - Date & Time of Evaluation Date of Evaluation: 07/02/18 Time of Evaluation: 07:15 - Subjective Subjective: clinically same Objective - Vital Signs/Intake and Output Vital Signs (last 24 hours): Temp Pulse Resp BP Pulse Ox 97.9 F 81 20 109/80 96 07/02/18 16:00 07/02/18 16:00 07/02/18 16:00 07/02/18 16:00 07/02/18 16:00 Intake and Output: 07/02/18 07/02/18 06:59 18:59 Intake Total 880 650 Balance 880 650 - Medications Medications: Current Medications Al Hydrox/Mg Hydrox/Simethicone (Maalox 30 Ml) 30 ml PO Q6H PRN PRN Reason: Indigestion / Heartburn Last Admin: 06/15/18 15:48 Dose: 30 ml Clonidine HCl (Catapres) 0.1 mg PO Q4H PRN PRN Reason: Symptoms of alcohol withdrawl Last Admin: 06/18/18 10:22 Dose: 0.1 mg Cyclobenzaprine HCl (Flexeril) 5 mg PO TIDAC [facility] Last Admin: 07/02/18 16:30 Dose: 5 mg Folic Acid (Folic Acid) 1 mg PO DAILY [facility] Last Admin: 07/02/18 10:52 Dose: 1 mg Gabapentin (Neurontin) 300 mg PO BID [facility] Last Admin: 07/02/18 17:18 Dose: 300 mg Glimepiride (Amaryl) 4 mg PO BID [facility] Last Admin: 06/18/18 17:35 Dose: 4 mg Hydroxyzine HCl (Atarax) 50 mg PO Q6H PRN PRN Reason: Anxiety Last Admin: 06/24/18 17:34 Dose: 50 mg Insulin Aspart (Novolog) 0 unit SC [facility]; Protocol Last Admin: 07/02/18 16:30 Dose: Not Given Lorazepam (Ativan) 0.5 mg IVP HS PRN PRN Reason: Insomnia Last Admin: 06/29/18 22:30 Dose: 0.5 mg Magnesium Oxide (Mag-Ox) 400 mg PO BID [facility] Last Admin: 07/02/18 17:18 Dose: 400 mg Metformin HCl (Glucophage) 1,000 mg PO BID [facility] Last Admin: 07/02/18 17:18 Dose: 1,000 mg Mirtazapine (Remeron) 15 mg PO HS [facility] Last Admin: 07/01/18 21:33 Dose: 15 mg Multivitamins (Hexavitamin) 1 tab PO DAILY [facility] Last Admin: 07/02/18 10:52 Dose: 1 tab Nicotine (Nicoderm Cq) 1 patch TD DAILY [facility] Last Admin: 07/02/18 10:53 Dose: 1 patch Oxycodone/Acetaminophen (Percocet 5/325 Mg Tab) 1 tab PO Q6H PRN PRN Reason: Pain, moderate (4-7) Stop: 07/04/18 15:38 Last Admin: 07/02/18 12:41 Dose: 1 tab Pantoprazole Sodium (Protonix Ec Tab) 40 mg PO BIDAC [facility] Last Admin: 07/02/18 16:30 Dose: 40 mg Sitagliptin Phosphate (Januvia) 25 mg PO DAILY [facility] Last Admin: 07/02/18 10:52 Dose: 25 mg Thiamine HCl (Vitamin B1 Tab) 100 mg PO DAILY [facility] Last Admin: 07/02/18 10:52 Dose: 100 mg Trazodone HCl (Desyrel) 100 mg PO HS PRN PRN Reason: Insomnia Last Admin: 07/01/18 21:33 Dose: 100 mg - Labs Labs: 06/27/18 06:51 06/27/18 06:51 PT 10.4 SECONDS (9.7-12.2) 06/23/18 06:24 INR 1.0 06/23/18 06:24 Assessment and Plan (1) Alcohol abuse Status: Acute (2) Alcohol withdrawal Status: Acute (3) Airway compromise Status: Acute (4) Alcohol intoxication Status: Acute (5) Alcohol use disorder, severe, dependence Status: Acute (6) Alcoholic pancreatitis Status: Acute (7) Colitis Status: Acute (8) DKA (diabetic ketoacidoses) Status: Acute (9) Dehydration Status: Acute (10) Esophagitis Status: Acute (11) Hyperglycemia Status: Acute (12) Hypokalemia Status: Acute (13) Hyponatremia Status: Acute (14) Seizure Status: Acute (15) Throat pain in adult Status: Acute (16) Upper gastrointestinal hemorrhage Status: Acute (17) Vomiting Status: Acute
[2018-07-03] MEDS: Oxycodone/Acetaminophen 5/325 mg Tab PO PRN ×4 (00:55→20:21)
[2018-07-03] MEDS: (Novolog) Insulin Aspart, Recombinant 100 u/ml 10 ml vial SC SCH ×4 (08:20→21:24)
[2018-07-03] MEDS ORDERED: Pantoprazole 40 mg Susp UD PO SCH (08:45)
[2018-07-03] MEDS: Multiple Vitamins Tab PO SCH (11:26)
[2018-07-03] MEDS: Magnesium Oxide 400 mg Tab UD PO SCH ×2 (11:26→17:04)
[2018-07-03] MEDS: Pantoprazole 40 mg Susp UD GT SCH (17:05)
--- NOTE | 2018-07-03 17:35 | CP.PCM.PN ---
Subjective - Date & Time of Evaluation Date of Evaluation: 07/03/18 Time of Evaluation: 07:15 - Subjective Subjective: clinically same Objective - Vital Signs/Intake and Output Vital Signs (last 24 hours): Temp Pulse Resp BP Pulse Ox 98.7 F 101 H 20 130/90 97 07/03/18 16:00 07/03/18 16:00 07/03/18 16:00 07/03/18 16:00 07/03/18 16:00 Intake and Output: 07/03/18 07/03/18 06:59 18:59 Intake Total 790 220 Balance 790 220 - Medications Medications: Current Medications Al Hydrox/Mg Hydrox/Simethicone (Maalox 30 Ml) 30 ml PO Q6H PRN PRN Reason: Indigestion / Heartburn Last Admin: 06/15/18 15:48 Dose: 30 ml Clonidine HCl (Catapres) 0.1 mg PO Q4H PRN PRN Reason: Symptoms of alcohol withdrawl Last Admin: 06/18/18 10:22 Dose: 0.1 mg Cyclobenzaprine HCl (Flexeril) 5 mg PO TIDAC [facility] Last Admin: 07/03/18 17:04 Dose: 5 mg Folic Acid (Folic Acid) 1 mg PO DAILY [facility] Last Admin: 07/03/18 11:26 Dose: 1 mg Gabapentin (Neurontin) 300 mg PO BID [facility] Last Admin: 07/03/18 17:04 Dose: 300 mg Glimepiride (Amaryl) 4 mg PO BID [facility] Last Admin: 06/18/18 17:35 Dose: 4 mg Hydroxyzine HCl (Atarax) 50 mg PO Q6H PRN PRN Reason: Anxiety Last Admin: 06/24/18 17:34 Dose: 50 mg Insulin Aspart (Novolog) 0 unit SC [facility]; Protocol Last Admin: 07/03/18 12:36 Dose: 2 units Lorazepam (Ativan) 0.5 mg IVP HS PRN PRN Reason: Insomnia Last Admin: 06/29/18 22:30 Dose: 0.5 mg Magnesium Oxide (Mag-Ox) 400 mg PO BID [facility] Last Admin: 07/03/18 17:04 Dose: 400 mg Metformin HCl (Glucophage) 1,000 mg PO BID [facility] Last Admin: 07/03/18 17:04 Dose: 1,000 mg Mirtazapine (Remeron) 15 mg PO HS [facility] Last Admin: 07/02/18 21:34 Dose: 15 mg Multivitamins (Hexavitamin) 1 tab PO DAILY [facility] Last Admin: 07/03/18 11:26 Dose: 1 tab Nicotine (Nicoderm Cq) 1 patch TD DAILY [facility] Last Admin: 07/03/18 11:27 Dose: 1 patch Oxycodone/Acetaminophen (Percocet 5/325 Mg Tab) 1 tab PO Q6H PRN PRN Reason: Pain, moderate (4-7) Stop: 07/04/18 15:38 Last Admin: 07/03/18 14:00 Dose: 1 tab Pantoprazole Sodium (Protonix Susp) 40 mg GT BIDAC [facility] Last Admin: 07/03/18 17:05 Dose: 40 mg Sitagliptin Phosphate (Januvia) 25 mg PO DAILY [facility] Last Admin: 07/03/18 11:26 Dose: 25 mg Thiamine HCl (Vitamin B1 Tab) 100 mg PO DAILY [facility] Last Admin: 07/03/18 11:26 Dose: 100 mg Trazodone HCl (Desyrel) 100 mg PO HS PRN PRN Reason: Insomnia Last Admin: 07/02/18 21:34 Dose: 100 mg - Labs Labs: 06/27/18 06:51 06/27/18 06:51 PT 10.4 SECONDS (9.7-12.2) 06/23/18 06:24 INR 1.0 06/23/18 06:24 Assessment and Plan (1) Alcohol abuse Status: Acute (2) Alcohol withdrawal Status: Acute (3) Airway compromise Status: Acute (4) Alcohol intoxication Status: Acute (5) Alcohol use disorder, severe, dependence Status: Acute (6) Alcoholic pancreatitis Status: Acute (7) Colitis Status: Acute (8) DKA (diabetic ketoacidoses) Status: Acute (9) Dehydration Status: Acute (10) Esophagitis Status: Acute (11) Hyperglycemia Status: Acute (12) Hypokalemia Status: Acute (13) Hyponatremia Status: Acute (14) Seizure Status: Acute (15) Throat pain in adult Status: Acute (16) Upper gastrointestinal hemorrhage Status: Acute (17) Vomiting Status: Acute
[2018-07-04] MEDS: Oxycodone/Acetaminophen 5/325 mg Tab PO PRN ×3 (06:05→18:42)
[2018-07-04] MEDS: (Novolog) Insulin Aspart, Recombinant 100 u/ml 10 ml vial SC SCH ×3 (08:29→17:47)
[2018-07-04] MEDS: Pantoprazole 40 mg Susp UD GT SCH ×2 (08:29→17:56)
[2018-07-04] MEDS: Magnesium Oxide 400 mg Tab UD PO SCH ×2 (09:37→17:55)
[2018-07-04] MEDS: Multiple Vitamins Tab PO SCH (09:38)
--- NOTE | 2018-07-04 19:20 | CP.PCM.PN ---
Subjective - Date & Time of Evaluation Date of Evaluation: 07/04/18 Time of Evaluation: 07:15 - Subjective Subjective: clinically same Objective - Vital Signs/Intake and Output Vital Signs (last 24 hours): Temp Pulse Resp BP Pulse Ox 98.4 F 108 H 20 121/78 95 07/04/18 16:00 07/04/18 16:00 07/04/18 16:00 07/04/18 16:00 07/04/18 16:00 - Medications Medications: Current Medications Al Hydrox/Mg Hydrox/Simethicone (Maalox 30 Ml) 30 ml PO Q6H PRN PRN Reason: Indigestion / Heartburn Last Admin: 06/15/18 15:48 Dose: 30 ml Clonidine HCl (Catapres) 0.1 mg PO Q4H PRN PRN Reason: Symptoms of alcohol withdrawl Last Admin: 06/18/18 10:22 Dose: 0.1 mg Cyclobenzaprine HCl (Flexeril) 5 mg PO TIDAC [facility] Last Admin: 07/04/18 17:55 Dose: 5 mg Folic Acid (Folic Acid) 1 mg PO DAILY [facility] Last Admin: 07/04/18 09:37 Dose: 1 mg Gabapentin (Neurontin) 300 mg PO BID [facility] Last Admin: 07/04/18 17:55 Dose: 300 mg Glimepiride (Amaryl) 4 mg PO BID [facility] Last Admin: 06/18/18 17:35 Dose: 4 mg Hydroxyzine HCl (Atarax) 50 mg PO Q6H PRN PRN Reason: Anxiety Last Admin: 06/24/18 17:34 Dose: 50 mg Insulin Aspart (Novolog) 0 unit SC [facility]; Protocol Last Admin: 07/04/18 17:47 Dose: Not Given Lorazepam (Ativan) 0.5 mg IVP HS PRN PRN Reason: Insomnia Last Admin: 07/04/18 00:12 Dose: 0.5 mg Magnesium Oxide (Mag-Ox) 400 mg PO BID [facility] Last Admin: 07/04/18 17:55 Dose: 400 mg Metformin HCl (Glucophage) 1,000 mg PO BID [facility] Last Admin: 07/04/18 17:55 Dose: 1,000 mg Mirtazapine (Remeron) 15 mg PO HS [facility] Last Admin: 07/03/18 21:29 Dose: 15 mg Multivitamins (Hexavitamin) 1 tab PO DAILY [facility] Last Admin: 07/04/18 09:38 Dose: 1 tab Nicotine (Nicoderm Cq) 1 patch TD DAILY [facility] Last Admin: 07/04/18 09:37 Dose: 1 patch Ondansetron HCl (Zofran Inj) 4 mg IVP Q4 PRN PRN Reason: Nausea/Vomiting Last Admin: 07/04/18 14:47 Dose: 4 mg Oxycodone/Acetaminophen (Percocet 5/325 Mg Tab) 1 tab PO Q6H PRN PRN Reason: pain Stop: 07/07/18 18:04 Last Admin: 07/04/18 18:42 Dose: 1 tab Pantoprazole Sodium (Protonix Susp) 40 mg GT BIDAC [facility] Last Admin: 07/04/18 17:56 Dose: 40 mg Sitagliptin Phosphate (Januvia) 25 mg PO DAILY [facility] Last Admin: 07/04/18 09:37 Dose: 25 mg Thiamine HCl (Vitamin B1 Tab) 100 mg PO DAILY [facility] Last Admin: 07/04/18 09:37 Dose: 100 mg Trazodone HCl (Desyrel) 100 mg PO HS PRN PRN Reason: Insomnia Last Admin: 07/02/18 21:34 Dose: 100 mg - Labs Labs: 06/27/18 06:51 06/27/18 06:51 PT 10.4 SECONDS (9.7-12.2) 06/23/18 06:24 INR 1.0 06/23/18 06:24 Assessment and Plan (1) Alcohol abuse Status: Acute (2) Alcohol withdrawal Status: Acute (3) Airway compromise Status: Acute (4) Alcohol intoxication Status: Acute (5) Alcohol use disorder, severe, dependence Status: Acute (6) Alcoholic pancreatitis Status: Acute (7) Colitis Status: Acute (8) DKA (diabetic ketoacidoses) Status: Acute (9) Dehydration Status: Acute (10) Esophagitis Status: Acute (11) Hyperglycemia Status: Acute (12) Hypokalemia Status: Acute (13) Hyponatremia Status: Acute (14) Seizure Status: Acute (15) Throat pain in adult Status: Acute (16) Upper gastrointestinal hemorrhage Status: Acute (17) Vomiting Status: Acute
[2018-07-05] MEDS: Oxycodone/Acetaminophen 5/325 mg Tab PO PRN ×2 (03:24→12:42)
[2018-07-05] MEDS: (Novolog) Insulin Aspart, Recombinant 100 u/ml 10 ml vial SC SCH (07:50)
[2018-07-05] MEDS: Pantoprazole 40 mg Susp UD GT SCH (08:25)
[2018-07-05] MEDS: Magnesium Oxide 400 mg Tab UD PO SCH (10:19)
[2018-07-05] MEDS: Multiple Vitamins Tab PO SCH (10:26)
--- NOTE | 2018-07-05 12:08 | CP.PCM.PN ---
Subjective - Date & Time of Evaluation Date of Evaluation: 07/05/18 Time of Evaluation: 07:30 - Subjective Subjective: clinically same Objective - Vital Signs/Intake and Output Vital Signs (last 24 hours): Temp Pulse Resp BP Pulse Ox 98.4 F 98 H 20 127/90 98 07/05/18 07:38 07/05/18 07:38 07/05/18 07:38 07/05/18 07:38 07/05/18 07:38 Intake and Output: 07/05/18 07/05/18 06:59 18:59 Intake Total 910 Balance 910 - Medications Medications: Current Medications Al Hydrox/Mg Hydrox/Simethicone (Maalox 30 Ml) 30 ml PO Q6H PRN PRN Reason: Indigestion / Heartburn Last Admin: 06/15/18 15:48 Dose: 30 ml Clonidine HCl (Catapres) 0.1 mg PO Q4H PRN PRN Reason: Symptoms of alcohol withdrawl Last Admin: 06/18/18 10:22 Dose: 0.1 mg Cyclobenzaprine HCl (Flexeril) 5 mg PO TIDAC [facility] Last Admin: 07/05/18 08:25 Dose: 5 mg Folic Acid (Folic Acid) 1 mg PO DAILY [facility] Last Admin: 07/05/18 10:20 Dose: 1 mg Gabapentin (Neurontin) 300 mg PO BID [facility] Last Admin: 07/05/18 10:19 Dose: 300 mg Glimepiride (Amaryl) 4 mg PO BID [facility] Last Admin: 06/18/18 17:35 Dose: 4 mg Hydroxyzine HCl (Atarax) 50 mg PO Q6H PRN PRN Reason: Anxiety Last Admin: 06/24/18 17:34 Dose: 50 mg Insulin Aspart (Novolog) 0 unit SC [facility]; Protocol Last Admin: 07/05/18 07:50 Dose: Not Given Lorazepam (Ativan) 0.5 mg IVP HS PRN PRN Reason: Insomnia Last Admin: 07/04/18 00:12 Dose: 0.5 mg Magnesium Oxide (Mag-Ox) 400 mg PO BID [facility] Last Admin: 07/05/18 10:19 Dose: 400 mg Metformin HCl (Glucophage) 1,000 mg PO BID [facility] Last Admin: 07/05/18 10:19 Dose: 1,000 mg Mirtazapine (Remeron) 15 mg PO HS [facility] Last Admin: 07/04/18 22:10 Dose: 15 mg Multivitamins (Hexavitamin) 1 tab PO DAILY [facility] Last Admin: 07/05/18 10:26 Dose: 1 tab Nicotine (Nicoderm Cq) 1 patch TD DAILY [facility] Last Admin: 07/05/18 10:19 Dose: 1 patch Ondansetron HCl (Zofran Inj) 4 mg IVP Q4 PRN PRN Reason: Nausea/Vomiting Last Admin: 07/05/18 08:25 Dose: 4 mg Oxycodone/Acetaminophen (Percocet 5/325 Mg Tab) 1 tab PO Q6H PRN PRN Reason: pain Stop: 07/07/18 18:04 Last Admin: 07/05/18 03:24 Dose: 1 tab Pantoprazole Sodium (Protonix Susp) 40 mg GT BIDAC [facility] Last Admin: 07/05/18 08:25 Dose: 40 mg Sitagliptin Phosphate (Januvia) 25 mg PO DAILY [facility] Last Admin: 07/05/18 10:19 Dose: 25 mg Thiamine HCl (Vitamin B1 Tab) 100 mg PO DAILY [facility] Last Admin: 07/05/18 10:20 Dose: 100 mg Trazodone HCl (Desyrel) 100 mg PO HS PRN PRN Reason: Insomnia Last Admin: 07/02/18 21:34 Dose: 100 mg - Labs Labs: 06/27/18 06:51 06/27/18 06:51 PT 10.4 SECONDS (9.7-12.2) 06/23/18 06:24 INR 1.0 06/23/18 06:24 - Constitutional Appears: Well - Head Exam Head Exam: ATRAUMATIC, NORMAL INSPECTION, NORMOCEPHALIC - Eye Exam Eye Exam: EOMI, Normal appearance, PERRL Pupil Exam: NORMAL ACCOMODATION, PERRL - ENT Exam ENT Exam: Mucous Membranes Moist, Normal Exam - Neck Exam Neck Exam: Full ROM, Normal Inspection. absent: Lymphadenopathy - Respiratory Exam Respiratory Exam: Decreased Breath Sounds - Cardiovascular Exam Cardiovascular Exam: REGULAR RHYTHM, +S1, +S2 - GI/Abdominal Exam GI & Abdominal Exam: Soft, Diminished Bowel Sounds - Rectal Exam Rectal Exam: Deferred Assessment and Plan (1) Alcohol abuse Status: Acute (2) Alcohol withdrawal Status: Acute (3) Airway compromise Status: Acute (4) Alcohol intoxication Status: Acute (5) Alcohol use disorder, severe, dependence Status: Acute (6) Alcoholic pancreatitis Status: Acute (7) Colitis Status: Acute (8) DKA (diabetic ketoacidoses) Status: Acute (9) Dehydration Status: Acute (10) Esophagitis Status: Acute (11) Hyperglycemia Status: Acute (12) Hypokalemia Status: Acute (13) Hyponatremia Status: Acute (14) Seizure Status: Acute (15) Throat pain in adult Status: Acute (16) Upper gastrointestinal hemorrhage Status: Acute (17) Vomiting Status: Acute
[2018-07-05 16:05] VITALS: BP 118/82; PULSE 101; TEMP 98.5; O2SAT 97
--- NOTE | 2018-07-05 17:04 | CP.PCM.PN ---
Subjective - Date & Time of Evaluation Date of Evaluation: 07/05/18 Time of Evaluation: 11:00 - Subjective Subjective: alert, orientedx3, ambulatory, no acute pain or distress. Objective - Vital Signs/Intake and Output Vital Signs (last 24 hours): Temp Pulse Resp BP Pulse Ox 98.5 F 101 H 20 118/82 97 07/05/18 16:04 07/05/18 16:04 07/05/18 16:04 07/05/18 16:04 07/05/18 16:04 Intake and Output: 07/05/18 07/05/18 06:59 18:59 Intake Total 910 360 Balance 910 360 - Medications Medications: Current Medications Al Hydrox/Mg Hydrox/Simethicone (Maalox 30 Ml) 30 ml PO Q6H PRN PRN Reason: Indigestion / Heartburn Last Admin: 06/15/18 15:48 Dose: 30 ml Clonidine HCl (Catapres) 0.1 mg PO Q4H PRN PRN Reason: Symptoms of alcohol withdrawl Last Admin: 06/18/18 10:22 Dose: 0.1 mg Cyclobenzaprine HCl (Flexeril) 5 mg PO TIDAC [facility] Last Admin: 07/05/18 08:25 Dose: 5 mg Folic Acid (Folic Acid) 1 mg PO DAILY [facility] Last Admin: 07/05/18 10:20 Dose: 1 mg Gabapentin (Neurontin) 300 mg PO BID [facility] Last Admin: 07/05/18 10:19 Dose: 300 mg Glimepiride (Amaryl) 4 mg PO BID [facility] Last Admin: 06/18/18 17:35 Dose: 4 mg Hydroxyzine HCl (Atarax) 50 mg PO Q6H PRN PRN Reason: Anxiety Last Admin: 06/24/18 17:34 Dose: 50 mg Insulin Aspart (Novolog) 0 unit SC [facility]; Protocol Last Admin: 07/05/18 07:50 Dose: Not Given Lorazepam (Ativan) 0.5 mg IVP HS PRN PRN Reason: Insomnia Last Admin: 07/04/18 00:12 Dose: 0.5 mg Magnesium Oxide (Mag-Ox) 400 mg PO BID [facility] Last Admin: 07/05/18 10:19 Dose: 400 mg Metformin HCl (Glucophage) 1,000 mg PO BID [facility] Last Admin: 07/05/18 10:19 Dose: 1,000 mg Mirtazapine (Remeron) 15 mg PO HS [facility] Last Admin: 07/04/18 22:10 Dose: 15 mg Multivitamins (Hexavitamin) 1 tab PO DAILY [facility] Last Admin: 07/05/18 10:26 Dose: 1 tab Nicotine (Nicoderm Cq) 1 patch TD DAILY [facility] Last Admin: 07/05/18 10:19 Dose: 1 patch Ondansetron HCl (Zofran Inj) 4 mg IVP Q4 PRN PRN Reason: Nausea/Vomiting Last Admin: 07/05/18 08:25 Dose: 4 mg Oxycodone/Acetaminophen (Percocet 5/325 Mg Tab) 1 tab PO Q6H PRN PRN Reason: pain Stop: 07/07/18 18:04 Last Admin: 07/05/18 12:42 Dose: 1 tab Pantoprazole Sodium (Protonix Susp) 40 mg GT BIDAC [facility] Last Admin: 07/05/18 08:25 Dose: 40 mg Sitagliptin Phosphate (Januvia) 25 mg PO DAILY [facility] Last Admin: 07/05/18 10:19 Dose: 25 mg Thiamine HCl (Vitamin B1 Tab) 100 mg PO DAILY [facility] Last Admin: 07/05/18 10:20 Dose: 100 mg Trazodone HCl (Desyrel) 100 mg PO HS PRN PRN Reason: Insomnia Last Admin: 07/02/18 21:34 Dose: 100 mg - Labs Labs: 06/27/18 06:51 06/27/18 06:51 PT 10.4 SECONDS (9.7-12.2) 06/23/18 06:24 INR 1.0 06/23/18 06:24 Assessment and Plan - Assessment and Plan (Free Text) Assessment: Patient is seen and examined. Alert, awake, no sob or vomiting. Tolerates bolus feedings and clear liquid diet. Discussed with DR Johann Gill, plan to discharge to [facility] today on current medications. Patient verbalized understanding.
== END 2018-07-05 17:30 | DRG 551 ==
LOC: C.ER 11:53 → C.7D 14:08 → C.3T 06-16 17:42
PROVIDERS: ADMIT Internal Medicine Nephrology; ATTEND Internal Medicine Nephrology
PROC: 0CJS8ZZ Inspection of Larynx, Via Natural or Artificial Opening Endoscopic (ICD-10-PCS; principal; 2018-06-15)
PROC: 0DH60UZ Insertion of Feeding Device into Stomach, Open Approach (ICD-10-PCS; 2018-06-23)
DX: K22.2 Esophageal obstruction (principal); K56.1 Intussusception; F10.230 Alcohol dependence with withdrawal, uncomplicated; R56.9 Unspecified convulsions; E87.6 Hypokalemia; E87.1 Hypo-osmolality and hyponatremia; E11.10 Type 2 diabetes mellitus with ketoacidosis without coma; E86.0 Dehydration; K29.70 Gastritis, unspecified, without bleeding; K44.9 Diaphragmatic hernia without obstruction or gangrene; K52.9 Noninfective gastroenteritis and colitis, unspecified; Z59.0 Homelessness; F17.210 Nicotine dependence, cigarettes, uncomplicated; G47.00 Insomnia, unspecified; I10 Essential (primary) hypertension; F32.9 Major depressive disorder, single episode, unspecified; K21.9 Gastro-esophageal reflux disease without esophagitis; K22.10 Ulcer of esophagus without bleeding; Z68.20 Body mass index [BMI] 20.0-20.9, adult; J38.3 Other diseases of vocal cords

== ENCOUNTER 2018-07-20 10:38 | Inpatient (IN) | payer OTHER ==
[2018-07-20 10:39] VITALS: BMI 20.7
--- NOTE | 2018-07-20 11:36 | C.PDOC ---
History Of Present Illness 43 year old male presents from the senior living for evaluation of fainting, lightheadedness, and abdominal pain radiating to the mid back for 4 days. Pt states he started to eat solid food 1 week ago but food gets stuck causing him to vomit. Pt reports he was discharged from the senior living last night but needed to stay after an episode of fainting. Notes he is compliant with medications. States G-tube occasionally oozes. PMD: Gamal Gill. Denies G-tube bleeding, fever, chills, and any other associated symptoms. Per medical records: PMHx of dysphasia, diabetes type II, G-tube, depression, anxiety, alcohol and opioid abuse Time Seen by Provider: 07/20/18 11:06 Chief Complaint (Nursing): Abdominal Pain History Per: Patient History/Exam Limitations: no limitations Onset/Duration Of Symptoms: Days Current Symptoms Are (Timing): Still Present Location Of Pain/Discomfort: Diffuse Radiation Of Pain To:: Back (mid. ) Associated Symptoms: Vomiting, Loss Of Appetite. denies: Fever, Chills Recent travel outside of the [place]: No Past Medical History Reviewed: Historical Data, Nursing Documentation, Vital Signs Vital Signs: Last Vital Signs Temp 97.8 F 07/20/18 10:45 Pulse 100 H 07/20/18 11:05 Resp 89 H 07/20/18 11:05 BP 113/83 07/20/18 11:05 Pulse Ox 100 07/20/18 11:05 - Medical History PMH: Anxiety, Diabetes (metformin), Gastritis, Pancreatitis Denies: Depression, Hepatitis, HIV, HTN, Chronic Kidney Disease, Seizures, Sexually Transmitted Disease - [facility] Procedures CLOSURE SKIN & SUBCUTANEOUS NEC (06/04/03) DETOXIFICATION SERVICES FOR SUBSTANCE ABUSE TREATMENT (04/24/18) ESOPHAGOGASTRODUODENOSCOPY [EGD] W/CLOSED BIOPSY (11/12/14) GROUP NURSE SEXUAL ASSAULT FOR SUBSTANCE ABUSE TREATMENT, PSYCHOEDUCATION (04/24/18) GROUP NURSE SEXUAL ASSAULT FOR SUBSTANCE ABUSE, COGNITIVE BEHAVIORAL (04/24/18) GROUP PSYCHOTHERAPY (04/24/18) INDIV PSYCHOTHERAPY FOR SUBSTANCE ABUSE TREATMENT, SUPPORT (04/24/18) INDIV PSYCHOTHERAPY FOR SUBSTANCE ABUSE, COGNITIV BEHAVIORAL (04/24/18) INDIV PSYCHOTHERAPY FOR SUBSTANCE ABUSE, PSYCHOEDUCATION (04/24/18) INDIVIDUAL PSYCHOTHERAPY, COGNITIVE-BEHAVIORAL (04/24/18) INDIVIDUAL PSYCHOTHERAPY, SUPPORTIVE (04/24/18) INFLUENZA VACCINATION (02/05/13) INSERTION OF FEEDING DEVICE INTO STOMACH, OPEN APPROACH (06/13/18) INSPECTION OF LARYNX, ENDO (06/13/18) LARYGNOSCOPY AND OTH TRACHEOSCOPY (05/02/14) PHARMACOTHERAPY FOR SUBSTANCE ABUSE, NICOTINE REPLACE (06/20/17) Family History: States: Unknown Family Hx - Social History Hx Tobacco Use: Yes Hx Alcohol Use: Yes Hx Substance Use: Yes - Immunization History Hx Tetanus Toxoid Vaccination: Yes Hx Influenza Vaccination: Yes (02/2018) Hx Pneumococcal Vaccination: No Review Of Systems Constitutional: Positive for: Other (decreased PO intake. ). Negative for: Fever, Chills Gastrointestinal: Positive for: Abdominal Pain. Negative for: Other (G-tube bleeding. ) Musculoskeletal: Positive for: Back Pain (secondary to abdominal pain. ) Neurological: Positive for: Other ((+) faiting episode. (+) lightheaded. ) Physical Exam - Physical Exam Appears: Chronically Ill, Other ( (+) cachectic.) Skin: Warm, Dry, Rash Head: Atraumatic, Normacephalic Eye(s): bilateral: Normal Inspection Oral Mucosa: Dry Throat: No Erythema, No Exudate, No Drooling Neck: Normal ROM, Supple Chest: Symmetrical, No Deformity Cardiovascular: Rhythm Regular, No Friction Rub, No Murmur Respiratory: Normal Breath Sounds, No Rales, No Rhonchi, No Wheezing Gastrointestinal/Abdominal: Soft, Tenderness (mild inconsistent tenderness.), Other (G-tube in place without signs of leakage or cellulitis) Back: Normal Inspection, No CVA Tenderness Extremity: Normal ROM, No Tenderness, No Swelling Extremity: Bilateral: Atraumatic, Normal Color And Temperature, Normal ROM Neurological/Psych: Oriented x3, Normal Speech, Normal Cognition ED Course And Treatment - Laboratory Results Result Diagrams: 07/20/18 12:34 07/20/18 12:34 O2 Sat by Pulse Oximetry: 100 (RA) Pulse Ox Interpretation: Normal Medical Decision Making Medical Decision Making: Initial plan: -Blood sent. -CXR -Pepcid -Zofran The patient is unable to tolerating PO. Signs of failure to thrive and weakness. The case was discussed with Dr. Johann Gill who agrees to admit the patient to his service. Disposition - Disposition Disposition: HOSPITALIZED Disposition Time: 13:28 Condition: STABLE Instructions: Weakness (ED) Forms: [facility] ([place]) - POA Present On Arrival: None - Clinical Impression Clinical Impression: Weakness, Failure to thrive - PA / ROOF PLUMBER / Resident Statement MD/DO has reviewed & agrees with the documentation as recorded. - Scribe Statement The provider has reviewed the documentation as recorded by the Scribe (Kirti Burnham)
--- NOTE | 2018-07-20 12:43 | RAD ---
Chest x-ray single frontal view HISTORY: Chest pain. Comparison: 06/18/2018 Findings: Mild venous congestion. Patchy increased markings in the right infrahilar region. Bilateral hilar prominence. Heart size within normal limits. Degenerative changes in the spine. Impression: Mild venous congestion. Patchy increased markings in the right infrahilar region. Bilateral hilar prominence.
[2018-07-20 12:44] LABS: BASO # 0.1 K/uL (0.0-0.2); BASO % 1.2 % (0.0-2.0); EOS # 0.2 K/uL (0.0-0.7); EOS % 1.8 % (0.0-4.0); HEMOGLOBIN 13.4 g/dL (12.0-18.0); LYMPH # 2.2 K/uL (1.0-4.3); LYMPH % 24.2 % (20.0-40.0); MEAN CELL VOLUME 81.3 fL (80.0-94.0); MEAN CORPUSCULAR HEMOGLOBIN 26.9 pg (27.0-31.0); MEAN PLATELET VOLUME 8.2 fL (7.2-11.7); MONO # 0.4 K/uL (0.0-0.8); MONO % 4.9 % (0.0-10.0); NEUT # 6.2 K/uL (1.8-7.0); NEUT % 67.9 % (50.0-75.0); RBC 4.97 Mil/uL (4.40-5.90); RED CELL DISTRIBUTION WIDTH 17.2 % (11.5-14.5); WHITE BLOOD COUNT 9.1 K/uL (4.8-10.8)
[2018-07-20 13:01] LABS: ALB/GLOB RATIO 1.3 (1.0-2.1); ALBUMIN 4.8 g/dL (3.5-5.0); ALT/SGPT < 6 U/L (21-72); AST/SGOT 30 U/L (17-59); BLOOD UREA NITROGEN 24 mg/dL (9-20); CALCIUM 10.5 mg/dl (8.6-10.4); GFR NON-AFRICAN AMERICAN > 60; LIPASE 19 U/L (23-300)
[2018-07-20] MEDS ORDERED: Aluminum Hydroxide/Magnesium Hydroxide Susp (30 mL) PO PRN (14:18)
--- NOTE | 2018-07-20 14:31 | CP.PCM.CON ---
<AjRaven - Last Filed: 07/20/18 17:55> History of Present Illness - History of Present Illness History of Present Illness: General Surgery Dr. Fitzpatrick 43 y/o M w/ PMHx of DM2, dysphagia 2/2 esophageal stricture, depression, polysubstance abuse presented to the ED from Rehab for evaluation of syncope and pre-syncopal episodes. Since last hospital admission, pt was slowly advanced to mechanical soft diet. Initially, pt tolerated well but, over last week pt has exhibited nausea/vomiting w/ solid food. Pt states food gets stuck causing him to vomit. Pt reports significant weakness and lightheadedness which pt contributes to low blood sugar and poor nutrition. Pt reports not receiving all of his meal supplements while at rehab. Currently pt denies F/C, CP, SOB, N/V, abd pain, D/C. Pt admits to some leaking around G-tube site but no bleeding or pain. PMHx: NIDDM, Pancreatitis, HTN, PUD, EtOH & opoid abuse Meds: reviewed in chart NKDA PSH: Open Caroline G-tube, EGD SHx: (+)tobacco. clean 40+days from EtOH, drug use FHx: noncontributory Review of Systems - Review of Systems All systems: reviewed and no additional remarkable complaints except (see HPI) Past Patient History - Infectious Disease Hx of Infectious Diseases: None - Tetanus Immunizations Tetanus Immunization: Unknown - Past Medical History & Family History Past Medical History?: Yes - Past Social History Smoking Status: Light Smoker < 10 Cigarettes Daily - CARDIAC Hx Hypertension: No - PULMONARY Hx Tuberculosis: No Other/Comment: Currently smokes 2 ppd - NEUROLOGICAL Hx Seizures: No - HEENT Hx HEENT Problems: No - RENAL Hx Chronic Kidney Disease: No - ENDOCRINE/METABOLIC Hx Diabetes Mellitus Type 2: Yes - HEMATOLOGICAL/ONCOLOGICAL Hx Human Immunodeficiency Virus (HIV): No - INTEGUMENTARY Hx Dermatological Problems: No - MUSCULOSKELETAL/RHEUMATOLOGICAL Hx Back Pain: Yes Hx Falls: Yes - GASTROINTESTINAL Hx Gastritis: Yes Hx Pancreatitis: Yes - GENITOURINARY/GYNECOLOGICAL Hx Sexually Transmitted Disorders: No - PSYCHIATRIC Hx Anxiety: Yes Hx Depression: No Hx Substance Use: Yes - SURGICAL HISTORY Hx Surgeries: No - ANESTHESIA Hx Anesthesia: No Meds Allergies/Adverse Reactions: Allergies Allergy/AdvReac Type Severity Reaction Status Date / Time No Known Allergies Allergy Verified 07/20/18 10:47 - Medications Medications: Current Medications Cyclobenzaprine HCl (Flexeril) 5 mg PO TIDAC [facility] Folic Acid (Folic Acid) 1 mg PO DAILY [facility] Gabapentin (Neurontin) 300 mg PO BID [facility] Glimepiride (Amaryl) 4 mg PO BID [facility] Home Med (Maalox 30 Ml) 30 ml PO Q6 PRN PRN Reason: GI distress Insulin Aspart (Novolog) 0 unit SC [facility]S [facility]; Protocol Lorazepam (Ativan) 1 mg PO Q8 PRN PRN Reason: Anxiety Magnesium Oxide (Mag-Ox) 400 mg PO BID [facility] Morphine Sulfate (Morphine) 2 mg IVP Q6 PRN PRN Reason: Pain, severe (8-10) Multivitamins (Hexavitamin) 1 tab PO DAILY [facility] Ondansetron HCl (Zofran Odt) 4 mg PO Q6 PRN PRN Reason: Nausea/Vomiting Pantoprazole Sodium (Protonix Inj) 40 mg IVP DAILY [facility] Sitagliptin Phosphate (Januvia) 25 mg PO DAILY [facility] Thiamine HCl (Vitamin B1 Tab) 100 mg PO DAILY [facility] Trazodone HCl (Desyrel) 100 mg PO HS PRN PRN Reason: Insomnia Physical Exam - Constitutional Appears: Non-toxic, No Acute Distress - Head Exam Head Exam: NORMAL INSPECTION - Eye Exam Eye Exam: Normal appearance - ENT Exam ENT Exam: Mucous Membranes Moist - Respiratory Exam Respiratory Exam: NORMAL BREATHING PATTERN. absent: Accessory Muscle Use, Respiratory Distress - Cardiovascular Exam Cardiovascular Exam: REGULAR RHYTHM. absent: Bradycardia, Tachycardia - GI/Abdominal Exam GI & Abdominal Exam: Soft. absent: Distended, Tenderness Additional comments: G-tube in place w/ some leakage of TF noted mild erythema from tape reaction midline scar well healed - Extremities Exam Extremities exam: Positive for: normal inspection - Neurological Exam Neurological exam: Alert, Oriented x3 - Psychiatric Exam Psychiatric exam: Normal Affect, Normal Mood - Skin Skin Exam: Dry, Intact, Normal Color, Warm Results - Vital Signs Recent Vital Signs: Last Vital Signs Temp 99.1 F 07/20/18 13:42 Pulse 98 H 07/20/18 14:17 Resp 20 07/20/18 14:17 BP 108/76 07/20/18 13:42 Pulse Ox 95 07/20/18 14:17 - Labs Result Diagrams: 07/20/18 12:34 03/17/19 12:34 Labs: Laboratory Results - last 24 hr 07/20/18 07/20/18 12:34 12:34 WBC 9.1 RBC 4.97 Hgb 13.4 Hct 40.5 MCV 81.3 D MCH 26.9 L MCHC 33.0 RDW 17.2 H Plt Count 433 H MPV 8.2 Neut % (Auto) 67.9 Lymph % (Auto) 24.2 [place] % (Auto) 4.9 Eos % (Auto) 1.8 Baso % (Auto) 1.2 Neut # (Auto) 6.2 Lymph # (Auto) 2.2 [place] # (Auto) 0.4 Eos # (Auto) 0.2 Baso # (Auto) 0.1 Sodium 132 Potassium 4.7 Chloride 91 L Carbon Dioxide 28 Anion Gap 17 BUN 24 H Creatinine 0.9 Est GFR ( Amer) > 60 Est GFR (Non-Af Amer) > 60 Random Glucose 227 H D Calcium 10.5 H Total Bilirubin 0.4 AST 30 ALT < 6 L D Alkaline Phosphatase 92 Total Protein 8.4 H Albumin 4.8 Globulin 3.6 Albumin/Globulin Ratio 1.3 Lipase 19 L - Imaging and Cardiology Chest x-ray Status: Image reviewed by me Assessment & Plan - Assessment and Plan (Free Text) Assessment: 43 y/o M w/ syncopal/pre-syncopal episodes likely 2/2 hypoglycemia Plan: - cont CLD - cont meal supplements 3-4x per day - monitor blood glucose - consider reducing PO hyperglycemia meds - cont medical management Pt discussed w/ Dr. Amari Rocha DO PGY3 <Derrick Fitzpatrick - Last Filed: 07/27/18 13:35> Results - Vital Signs Recent Vital Signs: Last Vital Signs Temp 97.9 F 07/26/18 15:15 Pulse 106 H 07/26/18 15:15 Resp 20 07/26/18 15:15 BP 111/78 07/26/18 15:15 Pulse Ox 99 07/26/18 15:15 - Labs Result Diagrams: 07/24/18 11:37 07/24/18 11:37 Labs: Laboratory Results - last 24 hr 07/26/18 16:43 POC Glucose (mg/dL) 114 H Attending/Attestation - Attestation I have fully participated in the care of the patient.: Yes I have reviewed all pertinent clinical information: Yes Notes (Text): Pt with weakness with Esophageal stricture Abdomen: Soft, NT, ND, G tube is functioning Labs and radiology reviewed Ass: Hypoglycemia, Failure to thrive Plan: Liquids orally C/w Tube feeds Dietitian consult c.w current mx Plan d.w pt in detail
--- NOTE | 2018-07-20 15:57 | CP.PCM.HP ---
Past Patient History - Infectious Disease Hx of Infectious Diseases: None - Tetanus Immunizations Tetanus Immunization: Unknown - Past Medical History & Family History Past Medical History?: Yes - Past Social History Smoking Status: Light Smoker < 10 Cigarettes Daily - CARDIAC Hx Hypertension: No - PULMONARY Hx Tuberculosis: No Other/Comment: Currently smokes 2 ppd - NEUROLOGICAL Hx Seizures: No - HEENT Hx HEENT Problems: No - RENAL Hx Chronic Kidney Disease: No - ENDOCRINE/METABOLIC Hx Diabetes Mellitus Type 2: Yes - HEMATOLOGICAL/ONCOLOGICAL Hx Human Immunodeficiency Virus (HIV): No - INTEGUMENTARY Hx Dermatological Problems: No - MUSCULOSKELETAL/RHEUMATOLOGICAL Hx Back Pain: Yes Hx Falls: Yes - GASTROINTESTINAL Hx Gastritis: Yes Hx Pancreatitis: Yes - GENITOURINARY/GYNECOLOGICAL Hx Sexually Transmitted Disorders: No - PSYCHIATRIC Hx Anxiety: Yes Hx Depression: No Hx Substance Use: Yes - SURGICAL HISTORY Hx Surgeries: No - ANESTHESIA Hx Anesthesia: No Meds Allergies/Adverse Reactions: Allergies Allergy/AdvReac Type Severity Reaction Status Date / Time No Known Allergies Allergy Verified 07/20/18 10:47 Physical Exam - Constitutional Appears: Well - Head Exam Head Exam: ATRAUMATIC, NORMAL INSPECTION, NORMOCEPHALIC - Eye Exam Eye Exam: EOMI, Normal appearance, PERRL Pupil Exam: NORMAL ACCOMODATION, PERRL - ENT Exam ENT Exam: Mucous Membranes Moist, Normal Exam - Neck Exam Neck exam: Positive for: Normal Inspection - Respiratory Exam Respiratory Exam: Decreased Breath Sounds - Cardiovascular Exam Cardiovascular Exam: REGULAR RHYTHM, +S1, +S2 - GI/Abdominal Exam GI & Abdominal Exam: Diminished Bowel Sounds, Soft - Rectal Exam Rectal Exam: Deferred Results - Vital Signs Recent Vital Signs: Last Vital Signs Temp 98 F 07/20/18 15:05 Pulse 69 07/20/18 15:05 Resp 20 07/20/18 15:05 BP 120/83 07/20/18 15:05 Pulse Ox 98 07/20/18 15:05 - Labs Result Diagrams: 07/20/18 12:34 07/20/18 12:34 Labs: Laboratory Results - last 24 hr 07/20/18 07/20/18 12:34 12:34 WBC 9.1 RBC 4.97 Hgb 13.4 Hct 40.5 MCV 81.3 D MCH 26.9 L MCHC 33.0 RDW 17.2 H Plt Count 433 H MPV 8.2 Neut % (Auto) 67.9 Lymph % (Auto) 24.2 [place] % (Auto) 4.9 Eos % (Auto) 1.8 Baso % (Auto) 1.2 Neut # (Auto) 6.2 Lymph # (Auto) 2.2 [place] # (Auto) 0.4 Eos # (Auto) 0.2 Baso # (Auto) 0.1 Sodium 132 Potassium 4.7 Chloride 91 L Carbon Dioxide 28 Anion Gap 17 BUN 24 H Creatinine 0.9 Est GFR ( Amer) > 60 Est GFR (Non-Af Amer) > 60 Random Glucose 227 H D Calcium 10.5 H Total Bilirubin 0.4 AST 30 ALT < 6 L D Alkaline Phosphatase 92 Total Protein 8.4 H Albumin 4.8 Globulin 3.6 Albumin/Globulin Ratio 1.3 Lipase 19 L
[2018-07-20] MEDS: (Novolog) Insulin Aspart, Recombinant 100 u/ml 10 ml vial SC SCH ×2 (16:52→21:58)
[2018-07-20] MEDS: Magnesium Oxide 400 mg Tab UD PO SCH (18:07)
[2018-07-21] MEDS: (Novolog) Insulin Aspart, Recombinant 100 u/ml 10 ml vial SC SCH ×4 (07:34→22:27)
[2018-07-21] MEDS: Multiple Vitamins Tab PO SCH (09:29)
[2018-07-21] MEDS: Magnesium Oxide 400 mg Tab UD PO SCH ×2 (09:29→18:25)
--- NOTE | 2018-07-21 13:20 | CP.PCM.CON ---
<Anupama Garcia - Last Filed: 07/21/18 13:05> History of Present Illness - History of Present Illness History of Present Illness: Gastroenterology Fellow/PGY6 Consult Note 43 year old male with PMH of distal esophageal stricture s/p G-tube placement 06/23/18 in setting of PUD (esophageal, gastric, duodenal) on EGDs November 2014 and Polysubstance Abuse over ten years (EtOH/cocaine/heroi n/benzodiazepines/tobacco), alcoholic pancreatitis 06/2018, Diabetes, and HTN presenting with vomiting solid food and fainting at rehab facility. Recent discharge 06/2018 for vomiting 2/2 distal esophageal stenosis at 30cm from incisors, not traversed and LAGD esophagitis from 15-35cm negative for mal ignancy/CMV/HSV on pathology. Patient endorses compliance to PPI and carafate therapy at rehab center alongwith sobriety and drug cessation. Prior longstanding noncompliance to medical therapy with known peptic ulcer disease since 2014 t o discharge 04/2018 for DKA and left against medical advice. Emeka kothari tolerated mechanical soft diet at rehab center for two weeks and advanced by speech therapist to solids for which he endorses he tolerated for 7- 10 days with new onset vomiting and abdominal discomfort leading to present admission. Denies additional weight loss in the last month since discharge 06/2018 with prior note of 40-50 pound unintentional weight loss. Denies diarrhea, constipation, melena, hematochezia, or hematemesis. No prior colonoscopy. Family History- denies stomach cancer, colon cancer Surgical History- none Social History- endorses sobriety since discharge 06/06/18- prior 3-4 pints vodka daily, beer daily (at least 10 years) , range tobacco use 1/2-2ppd x 30 years to illicit drug abuse- cocaine, heroin, opiates, BZDs Endoscopic History- 05/2014,11/2014- hiatal hernia, severe esophageal ulceration, Grade 1 GE junction esophageal varices, multiple gastric cardia/antral ulcers, duodenal bulb and descend duodenum ulcers, H. pylori negative gastritis 06/17/2018, repeat on 06/18 with pediatric scope unable to traverse esophageal stricture at 30cm from incisors, negative for malignancy/HSV/CMV, LAGD esophagitis 15-35cm from incisors, H. pylori negative gastritis Review of Systems - Review of Systems Review of Systems: 12-point review of systems negative except for as above Past Patient History - Infectious Disease Hx of Infectious Diseases: None - Tetanus Immunizations Tetanus Immunization: Unknown - Past Medical History & Family History Past Medical History?: Yes - Past Social History Smoking Status: Former Smoker - CARDIAC Hx Cardiac Disorders: No Hx Hypertension: No - PULMONARY Hx Respiratory Disorders: No Hx Tuberculosis: No Other/Comment: Currently smokes 2 ppd - NEUROLOGICAL Hx Seizures: No - HEENT Hx HEENT Problems: No - RENAL Hx Chronic Kidney Disease: No - ENDOCRINE/METABOLIC Hx Endocrine Disorders: Yes Hx Diabetes Mellitus Type 2: Yes - HEMATOLOGICAL/ONCOLOGICAL Hx Human Immunodeficiency Virus (HIV): No - INTEGUMENTARY Hx Dermatological Problems: No - MUSCULOSKELETAL/RHEUMATOLOGICAL Hx Musculoskeletal Disorders: Yes Hx Back Pain: Yes Hx Falls: Yes (from hypoglycemia, feeling lightheaded) - GASTROINTESTINAL Hx Gastrointestinal Disorders: Yes Hx Gastritis: Yes Hx Pancreatitis: Yes - GENITOURINARY/GYNECOLOGICAL Hx Genitourinary Disorders: No Hx Sexually Transmitted Disorders: No - PSYCHIATRIC Hx Psychophysiologic Disorder: Yes Hx Anxiety: Yes Hx Depression: No Hx Substance Use: Yes - SURGICAL HISTORY Hx Surgeries: No - ANESTHESIA Hx Anesthesia: Yes Hx Anesthesia Reactions: No Meds Allergies/Adverse Reactions: Allergies Allergy/AdvReac Type Severity Reaction Status Date / Time No Known Allergies Allergy Verified 07/20/18 10:47 - Medications Medications: Current Medications Al Hydrox/Mg Hydrox/Simethicone (Maalox 30 Ml) 30 ml PO Q6 PRN PRN Reason: GI distress Cyclobenzaprine HCl (Flexeril) 5 mg PO TIDAC [facility] Last Admin: 07/21/18 12:04 Dose: 5 mg Folic Acid (Folic Acid) 1 mg PO DAILY [facility] Last Admin: 07/21/18 09:29 Dose: 1 mg Gabapentin (Neurontin) 300 mg PO BID [facility] Last Admin: 07/21/18 09:29 Dose: 300 mg Glimepiride (Amaryl) 4 mg PO BID [facility] Last Admin: 07/21/18 09:29 Dose: 4 mg Heparin Sodium (Porcine) (Heparin) 5,000 units SC Q12 [facility] Last Admin: 07/21/18 09:30 Dose: 5,000 units Insulin Aspart (Novolog) [address] [facility]; Protocol Last Admin: 07/21/18 12:03 Dose: 1 u Lorazepam (Ativan) 1 mg PO Q8 PRN PRN Reason: Anxiety Magnesium Oxide (Mag-Ox) 400 mg PO BID [facility] Last Admin: 07/21/18 09:29 Dose: 400 mg Morphine Sulfate (Morphine) 2 mg IVP Q6 PRN PRN Reason: Pain, severe (8-10) Last Admin: 07/21/18 12:21 Dose: 2 mg Multivitamins (Hexavitamin) 1 tab PO DAILY [facility] Last Admin: 07/21/18 09:29 Dose: 1 tab Ondansetron HCl (Zofran Odt) 4 mg PO Q6 PRN PRN Reason: Nausea/Vomiting Pantoprazole Sodium (Protonix Inj) 40 mg IVP DAILY [facility] Last Admin: 07/21/18 09:30 Dose: 40 mg Sitagliptin Phosphate (Januvia) 25 mg PO DAILY [facility] Last Admin: 07/21/18 09:29 Dose: 25 mg Thiamine HCl (Vitamin B1 Tab) 100 mg PO DAILY [facility] Last Admin: 07/21/18 09:29 Dose: 100 mg Tramadol HCl (Ultram) 50 mg PO TID PRN PRN Reason: Pain, moderate (4-7) Trazodone HCl (Desyrel) 100 mg PO HS PRN PRN Reason: Insomnia Last Admin: 07/21/18 00:03 Dose: 100 mg Physical Exam - Constitutional Appears: Non-toxic, No Acute Distress, Cachectic, Chronically Ill - Head Exam Head Exam: ATRAUMATIC, NORMOCEPHALIC - Eye Exam Eye Exam: EOMI, PERRL. absent: Scleral icterus Pupil Exam: PERRL. absent: Miosis, Mydriatic - ENT Exam ENT Exam: Mucous Membranes Moist, Normal Oropharynx - Neck Exam Neck exam: Positive for: Full Rom, Normal Inspection - Respiratory Exam Respiratory Exam: Clear to Auscultation Bilateral. absent: Rales, Rhonchi, Wheezes - Cardiovascular Exam Cardiovascular Exam: RRR, +S1, +S2. absent: Gallop, Rubs - GI/Abdominal Exam GI & Abdominal Exam: Normal Bowel Sounds, Soft. absent: Distended, Firm, Guarding, Organomegaly, Rebound, Rigid, Tenderness Additional comments: LUQ G-tube in place, C/D/I - Extremities Exam Extremities exam: Positive for: normal inspection. Negative for: pedal edema - Neurological Exam Neurological exam: Alert, Oriented x3 - Psychiatric Exam Psychiatric exam: Normal Affect, Normal Mood - Skin Skin Exam: Dry, Intact, Normal Color, Warm Results - Vital Signs Recent Vital Signs: Last Vital Signs Temp 97.2 F L 07/21/18 07:30 Pulse 97 H 07/21/18 07:30 Resp 20 07/21/18 07:30 BP 101/74 07/21/18 07:30 Pulse Ox 96 07/21/18 07:30 - Labs Result Diagrams: 07/20/18 12:34 07/20/18 12:34 Labs: Laboratory Results - last 24 hr 07/20/18 07/20/18 07/21/18 17:12 21:50 06:14 POC Glucose (mg/dL) 128 H 213 H 174 H Assessment & Plan - Assessment and Plan (Free Text) Assessment: 43 year old male with PMH of distal esophageal stricture s/p G-tube placement 06/23/18 in setting of PUD (esophageal, gastric, duodenal) on EGDs November 2014 and polysubstance Abuse over ten years (EtOH/ cocaine/heroin/benzodiazepines/tobacco), alcoholic pancreatitis 06/2018, Diabetes, and HTN presenting with dysphagia to solids. Prior EGD 06/17/2018 with repeat on 06/18 with pediatric scope but unable to traverse esophageal stricture at 30cm from incisors, negative for malignancy/HSV/CMV on pathology, LAGD esophagitis 15-35cm from incisors, and H. pylori negative gastritis. No prior colonoscopy. Plan: -ordered barium esophagram to evaluate extinct of esophageal stricture -follow up labs for today, correct any electrolyte derangements if present -clear liquid diet by mouth only -on G-tube feeds -NPO after midnight -plan for esophageal dilatation with possible fluoroscopy tomorrow, 07/22/18 <Smith Jasso - Last Filed: 07/21/18 13:42> Meds - Medications Medications: Current Medications Al Hydrox/Mg Hydrox/Simethicone (Maalox 30 Ml) 30 ml PO Q6 PRN PRN Reason: GI distress Cyclobenzaprine HCl (Flexeril) 5 mg PO TIDAC [facility] Last Admin: 07/21/18 12:04 Dose: 5 mg Folic Acid (Folic Acid) 1 mg PO DAILY [facility] Last Admin: 07/21/18 09:29 Dose: 1 mg Gabapentin (Neurontin) 300 mg PO BID [facility] Last Admin: 07/21/18 09:29 Dose: 300 mg Glimepiride (Amaryl) 4 mg PO BID [facility] Last Admin: 07/21/18 09:29 Dose: 4 mg Heparin Sodium (Porcine) (Heparin) 5,000 units SC Q12 [facility] Last Admin: 07/21/18 09:30 Dose: 5,000 units Insulin Aspart (Novolog) 0 unit SC ACHS [facility]; Protocol Last Admin: 07/21/18 12:03 Dose: 1 u Lorazepam (Ativan) 1 mg PO Q8 PRN PRN Reason: Anxiety Magnesium Oxide (Mag-Ox) 400 mg PO BID [facility] Last Admin: 07/21/18 09:29 Dose: 400 mg Morphine Sulfate (Morphine) 2 mg IVP Q6 PRN PRN Reason: Pain, severe (8-10) Last Admin: 07/21/18 12:21 Dose: 2 mg Multivitamins (Hexavitamin) 1 tab PO DAILY [facility] Last Admin: 07/21/18 09:29 Dose: 1 tab Ondansetron HCl (Zofran Odt) 4 mg PO Q6 PRN PRN Reason: Nausea/Vomiting Pantoprazole Sodium (Protonix Inj) 40 mg IVP DAILY [facility] Last Admin: 07/21/18 09:30 Dose: 40 mg Sitagliptin Phosphate (Januvia) 25 mg PO DAILY [facility] Last Admin: 07/21/18 09:29 Dose: 25 mg Thiamine HCl (Vitamin B1 Tab) 100 mg PO DAILY [facility] Last Admin: 07/21/18 09:29 Dose: 100 mg Tramadol HCl (Ultram) 50 mg PO TID PRN PRN Reason: Pain, moderate (4-7) Trazodone HCl (Desyrel) 100 mg PO HS PRN PRN Reason: Insomnia Last Admin: 07/21/18 00:03 Dose: 100 mg Results - Vital Signs Recent Vital Signs: Last Vital Signs Temp 97.2 F L 07/21/18 07:30 Pulse 97 H 07/21/18 07:30 Resp 20 07/21/18 07:30 BP 101/74 07/21/18 07:30 Pulse Ox 96 07/21/18 07:30 - Labs Result Diagrams: 07/20/18 12:34 07/20/18 12:34 Labs: Laboratory Results - last 24 hr 07/20/18 07/20/18 07/21/18 17:12 21:50 06:14 POC Glucose (mg/dL) 128 H 213 H 174 H Attending/Attestation - Attestation I have personally seen and examined this patient.: Yes I have fully participated in the care of the patient.: Yes I have reviewed all pertinent clinical information: Yes Notes (Text): 07/21/18 13:35 I have seen and examined patient with GI fellow. Agree with above documentation with the following additions. In brief, this is a 43 year old male with history of ETOH and substance abuse, distal esophageal stricture s/p surgical gas trostomy placement last month, DM, HTN, who presents to hospital with pre- syncopal episode in setting of ongoing dysphagia and vomiting. He underwent attempted EGD last month using XP gastroscope showing distal stricture which was unable to be traversed. He was discharged to [facility] following placement of surgical feeding tube placement with subsequent plan to repeat EGD +/- dilation after medical therapy and ETOH abstinence. He continued to consume solid foods by mouth at nursing facility despite being advised to only use gastrostomy tube for ongoing nutritional support. Today he is seen sitting at side of bed, appears comfortable. No recurrent vomiting since arrival to hospital. He denies fever/chills, weight loss, or change in bowel habits. He claims to have stopped smoking/drinking since prior hospital discharge. ETOH and polysubstance abuse Dysphagia Esophageal stricture - Clear liquid diet as tolerated - Continue with PPI therapy - Prior abdominal and chest cross sectional imaging failed to show definitive evidence of space occupying mass lesion in distal esophagus/GEJ - Patient may benefit from repeat EGD +/- dilation using fluoroscopy, will discuss with Dr. Massey - TRISTANO after midnight
[2018-07-21] MEDS ORDERED: Barium Sulfate for Susp 96% w/w 176g Bottle PR ONE ×2 (13:48)
[2018-07-21] MEDS ORDERED: Barium Sulfate for Susp 98% w/w 340g Bottle ONE (13:48)
--- NOTE | 2018-07-21 15:53 | RAD ---
Date of service: 07/21/2018 PROCEDURE: Single contrast esophagram HISTORY: Esophageal stricture COMPARISON: None available. TECHNIQUE: Fluoroscopic evaluation of the esophagus was performed following administration of oral contrast. FINDINGS: Esophagus: Long segment smoothly marginated stricture extending from the mid esophagus to the GE junction. IMPRESSION: Long segment smoothly marginated stricture extending from the mid esophagus to the GE junction. Correlation with upper GI endoscopy is recommended.
[2018-07-21 18:22] LABS: BASO # 0.1 K/uL (0.0-0.2); BASO % 1.1 % (0.0-2.0); EOS # 0.7 K/uL (0.0-0.7); EOS % 6.3 % (0.0-4.0); LYMPH # 3.7 K/uL (1.0-4.3); LYMPH % 33.7 % (20.0-40.0); MEAN CELL VOLUME 81.1 fL (80.0-94.0); MEAN CORPUSCULAR HEMOGLOBIN 25.9 pg (27.0-31.0); MEAN CORPUSCULAR HGB CONC 31.9 g/dL (33.0-37.0); MEAN PLATELET VOLUME 8.3 fL (7.2-11.7); MONO # 0.5 K/uL (0.0-0.8); MONO % 4.8 % (0.0-10.0); NEUT # 5.9 K/uL (1.8-7.0); NEUT % 54.1 % (50.0-75.0); RBC 4.65 Mil/uL (4.40-5.90); RED CELL DISTRIBUTION WIDTH 17.7 % (11.5-14.5); WHITE BLOOD COUNT 10.8 K/uL (4.8-10.8)
[2018-07-21 18:30] LABS: PROTHROMBIN TIME 10.9 SECONDS (9.7-12.2)
[2018-07-21 18:47] LABS: ALB/GLOB RATIO 1.3 (1.0-2.1); ALBUMIN 4.1 g/dL (3.5-5.0); ALT/SGPT 13 U/L (21-72); AST/SGOT 28 U/L (17-59); BLOOD UREA NITROGEN 28 mg/dL (9-20); CALCIUM 9.8 mg/dl (8.6-10.4); GFR NON-AFRICAN AMERICAN > 60
--- NOTE | 2018-07-21 20:31 | CP.PCM.PN ---
Subjective - Date & Time of Evaluation Date of Evaluation: 07/21/18 Time of Evaluation: 10:00 - Subjective Subjective: clinically same Objective - Vital Signs/Intake and Output Vital Signs (last 24 hours): Temp Pulse Resp BP Pulse Ox 97.9 F 95 H 20 100/67 98 07/21/18 16:00 07/21/18 16:00 07/21/18 16:00 07/21/18 16:00 07/21/18 16:00 - Medications Medications: Current Medications Al Hydrox/Mg Hydrox/Simethicone (Maalox 30 Ml) 30 ml PO Q6 PRN PRN Reason: GI distress Cyclobenzaprine HCl (Flexeril) 5 mg PO TIDAC [facility] Last Admin: 07/21/18 17:25 Dose: 5 mg Folic Acid (Folic Acid) 1 mg PO DAILY [facility] Last Admin: 07/21/18 09:29 Dose: 1 mg Gabapentin (Neurontin) 300 mg PO BID [facility] Last Admin: 07/21/18 18:25 Dose: 300 mg Glimepiride (Amaryl) 4 mg PO BID [facility] Last Admin: 07/21/18 18:25 Dose: 4 mg Heparin Sodium (Porcine) (Heparin) 5,000 units SC Q12 [facility] Last Admin: 07/21/18 09:30 Dose: 5,000 units Insulin Aspart (Novolog) 0 unit SC [facility]; Protocol Last Admin: 07/21/18 17:05 Dose: Not Given Lorazepam (Ativan) 1 mg PO Q8 PRN PRN Reason: Anxiety Last Admin: 07/21/18 14:18 Dose: 1 mg Magnesium Oxide (Mag-Ox) 400 mg PO BID [facility] Last Admin: 07/21/18 18:25 Dose: 400 mg Morphine Sulfate (Morphine) 2 mg IVP Q6 PRN PRN Reason: Pain, severe (8-10) Last Admin: 07/21/18 19:00 Dose: 2 mg Multivitamins (Hexavitamin) 1 tab PO DAILY [facility] Last Admin: 07/21/18 09:29 Dose: 1 tab Ondansetron HCl (Zofran Odt) 4 mg PO Q6 PRN PRN Reason: Nausea/Vomiting Pantoprazole Sodium (Protonix Inj) 40 mg IVP DAILY [facility] Last Admin: 07/21/18 09:30 Dose: 40 mg Sitagliptin Phosphate (Januvia) 25 mg PO DAILY [facility] Last Admin: 07/21/18 09:29 Dose: 25 mg Thiamine HCl (Vitamin B1 Tab) 100 mg PO DAILY [facility] Last Admin: 07/21/18 09:29 Dose: 100 mg Tramadol HCl (Ultram) 50 mg PO TID PRN PRN Reason: Pain, moderate (4-7) Trazodone HCl (Desyrel) 100 mg PO HS PRN PRN Reason: Insomnia Last Admin: 07/21/18 00:03 Dose: 100 mg - Labs Labs: 07/21/18 18:16 07/21/18 18:16 PT 10.9 SECONDS (9.7-12.2) 07/21/18 18:16 INR 1.0 07/21/18 18:16 - Constitutional Appears: Well - Head Exam Head Exam: ATRAUMATIC, NORMAL INSPECTION, NORMOCEPHALIC - Eye Exam Eye Exam: EOMI, Normal appearance, PERRL Pupil Exam: NORMAL ACCOMODATION, PERRL - ENT Exam ENT Exam: Mucous Membranes Moist, Normal Exam - Neck Exam Neck Exam: Full ROM, Normal Inspection. absent: Lymphadenopathy - Respiratory Exam Respiratory Exam: Decreased Breath Sounds - Cardiovascular Exam Cardiovascular Exam: REGULAR RHYTHM, +S1, +S2 - GI/Abdominal Exam GI & Abdominal Exam: Soft, Hypoactive Bowel Sounds - Rectal Exam Rectal Exam: Deferred
[2018-07-22] MEDS ORDERED: Dextrose 50% SYRINGE Inj (50 ml) IV STA (06:41)
[2018-07-22] MEDS: (Novolog) Insulin Aspart, Recombinant 100 u/ml 10 ml vial SC SCH ×4 (08:21→21:24)
[2018-07-22] MEDS: Magnesium Oxide 400 mg Tab UD PO SCH ×2 (10:19→17:45)
[2018-07-22] MEDS: Multiple Vitamins Tab PO SCH (10:19)
--- NOTE | 2018-07-22 15:07 | CP.PCM.PCO ---
Physician Communication Note - Physician Communication Note Physician Communication Note: counselling on NPO status at bedside given with Dr. Massey
[2018-07-22] MEDS ORDERED: (Novolin R) Insulin Human Regular 100 units/ml vial SC SCH (16:30)
--- NOTE | 2018-07-22 18:09 | CP.PCM.PN ---
Subjective - Date & Time of Evaluation Date of Evaluation: 07/22/18 Time of Evaluation: 09:45 - Subjective Subjective: clinically same Objective - Vital Signs/Intake and Output Vital Signs (last 24 hours): Temp Pulse Resp BP Pulse Ox 97.6 F 79 20 114/80 99 07/22/18 16:00 07/22/18 16:00 07/22/18 16:00 07/22/18 16:00 07/22/18 16:00 Intake and Output: 07/22/18 07/22/18 06:59 18:59 Intake Total 480 390 Balance 480 390 - Medications Medications: Current Medications Al Hydrox/Mg Hydrox/Simethicone (Maalox 30 Ml) 30 ml PO Q6 PRN PRN Reason: GI distress Cyclobenzaprine HCl (Flexeril) 5 mg PO TIDAC [facility] Last Admin: 07/22/18 16:03 Dose: 5 mg Folic Acid (Folic Acid) 1 mg PO DAILY [facility] Last Admin: 07/22/18 10:19 Dose: Not Given Gabapentin (Neurontin) 300 mg PO BID [facility] Last Admin: 07/22/18 17:45 Dose: 300 mg Heparin Sodium (Porcine) (Heparin) 5,000 units SC Q12 [facility] Last Admin: 07/22/18 10:19 Dose: Not Given Dextrose (Dextrose 5% In Water) 500 mls @ 50 mls/hr IV .Q10H [facility] Stop: 07/22/18 20:29 Last Admin: 07/22/18 11:17 Dose: 50 mls/hr Insulin Aspart (Novolog) 0 unit SC ACHS [facility]; Protocol Last Admin: 07/22/18 17:46 Dose: Not Given Lorazepam (Ativan) 1 mg PO Q8 PRN PRN Reason: Anxiety Last Admin: 07/22/18 17:46 Dose: 1 mg Magnesium Oxide (Mag-Ox) 400 mg PO BID [facility] Last Admin: 07/22/18 17:45 Dose: 400 mg Morphine Sulfate (Morphine) 2 mg IVP Q6 PRN PRN Reason: Pain, severe (8-10) Last Admin: 07/22/18 16:03 Dose: 2 mg Multivitamins (Hexavitamin) 1 tab PO DAILY [facility] Last Admin: 07/22/18 10:19 Dose: Not Given Ondansetron HCl (Zofran Odt) 4 mg PO Q6 PRN PRN Reason: Nausea/Vomiting Pantoprazole Sodium (Protonix Inj) 40 mg IVP DAILY [facility] Last Admin: 07/22/18 11:00 Dose: 40 mg Sitagliptin Phosphate (Januvia) 25 mg PO DAILY [facility] Last Admin: 07/22/18 10:19 Dose: Not Given Thiamine HCl (Vitamin B1 Tab) 100 mg PO DAILY [facility] Last Admin: 07/22/18 10:20 Dose: Not Given Tramadol HCl (Ultram) 50 mg PO TID PRN PRN Reason: Pain, moderate (4-7) Trazodone HCl (Desyrel) 100 mg PO HS PRN PRN Reason: Insomnia Last Admin: 07/21/18 00:03 Dose: 100 mg - Labs Labs: 07/21/18 18:16 07/21/18 18:16 PT 10.9 SECONDS (9.7-12.2) 07/21/18 18:16 INR 1.0 07/21/18 18:16 - Constitutional Appears: Well - Head Exam Head Exam: ATRAUMATIC, NORMAL INSPECTION, NORMOCEPHALIC - Eye Exam Eye Exam: EOMI, Normal appearance, PERRL Pupil Exam: NORMAL ACCOMODATION, PERRL - ENT Exam ENT Exam: Mucous Membranes Moist, Normal Exam - Neck Exam Neck Exam: Full ROM, Normal Inspection. absent: Lymphadenopathy - Respiratory Exam Respiratory Exam: Decreased Breath Sounds - Cardiovascular Exam Cardiovascular Exam: REGULAR RHYTHM, +S1, +S2 - GI/Abdominal Exam GI & Abdominal Exam: Soft, Diminished Bowel Sounds - Rectal Exam Rectal Exam: Deferred
[2018-07-23] MEDS ORDERED: Propofol 10 mg/ml Inj (20 ML) ONE ×3 (11:12→11:54)
--- NOTE | 2018-07-23 14:48 | RAD ---
Date of service: 07/23/2018 PROCEDURE: Intraoperative Fluoroscopy. HISTORY: ESOPHAGEAL STRICTURE FINDINGS: Fluoroscopic assistance was provided for dilatation esophageal stricture. Please refer to the operative report from MARILIA Bills. Total fluoroscopic time (continuous mode) utilized during the procedure 39.7 seconds. Dose report: DLP [id number] (mGy/m2)
[2018-07-23] MEDS: Magnesium Oxide 400 mg Tab UD PO SCH (17:01)
[2018-07-23] MEDS: Sucralfate 1 gm/10 ml Oral Susp UD PO SCH ×2 (17:02→21:16)
[2018-07-23] MEDS: Pantoprazole 40 mg Susp UD PO SCH (17:02)
[2018-07-23] MEDS: (Novolog) Insulin Aspart, Recombinant 100 u/ml 10 ml vial SC SCH ×2 (17:03→21:18)
--- NOTE | 2018-07-23 19:20 | CP.PCM.PN ---
Subjective - Date & Time of Evaluation Date of Evaluation: 07/23/18 Time of Evaluation: 10:00 - Subjective Subjective: clinically same Objective - Vital Signs/Intake and Output Vital Signs (last 24 hours): Temp Pulse Resp BP Pulse Ox 98.6 F 92 H 18 133/87 97 07/23/18 15:35 07/23/18 15:35 07/23/18 15:35 07/23/18 15:35 07/23/18 15:35 Intake and Output: 07/23/18 07/24/18 18:59 06:59 Intake Total 475 Balance 475 - Medications Medications: Current Medications Al Hydrox/Mg Hydrox/Simethicone (Maalox 30 Ml) 30 ml PO Q6 PRN PRN Reason: GI distress Cyclobenzaprine HCl (Flexeril) 5 mg PO TIDAC [facility] Last Admin: 07/23/18 09:49 Dose: Not Given Folic Acid (Folic Acid) 1 mg PO DAILY [facility] Last Admin: 07/22/18 10:19 Dose: Not Given Gabapentin (Neurontin) 300 mg PO BID [facility] Last Admin: 07/23/18 17:02 Dose: 300 mg Heparin Sodium (Porcine) (Heparin) 5,000 units SC Q12 [facility] Last Admin: 07/22/18 21:24 Dose: Not Given Lactated Ringer's (Lactated Ringer's 500ml) 500 mls @ 75 mls/hr IV .Q6H40M [facility] Insulin Aspart (Novolog) 0 unit SC ACHS [facility]; Protocol Last Admin: 07/23/18 17:03 Dose: Not Given Lorazepam (Ativan) 1 mg PO Q8 PRN PRN Reason: Anxiety Last Admin: 07/22/18 17:46 Dose: 1 mg Magnesium Oxide (Mag-Ox) 400 mg PO BID [facility] Last Admin: 07/23/18 17:01 Dose: 400 mg Morphine Sulfate (Morphine) 2 mg IVP Q6 PRN PRN Reason: Pain, severe (8-10) Last Admin: 07/23/18 17:03 Dose: 2 mg Multivitamins (Hexavitamin) 1 tab PO DAILY [facility] Last Admin: 07/22/18 10:19 Dose: Not Given Ondansetron HCl (Zofran Odt) 4 mg PO Q6 PRN PRN Reason: Nausea/Vomiting Last Admin: 03/19/19 18:12 Dose: 4 mg Pantoprazole Sodium (Protonix Susp) 40 mg PO 0600,1600 [facility] Last Admin: 07/23/18 17:02 Dose: 40 mg Sitagliptin Phosphate (Januvia) 25 mg PO DAILY [facility] Last Admin: 07/22/18 10:19 Dose: Not Given Sucralfate (Carafate Oral Susp) 1 gm PO QID [facility] Last Admin: 07/23/18 17:02 Dose: 1 gm Thiamine HCl (Vitamin B1 Tab) 100 mg PO DAILY [facility] Last Admin: 07/22/18 10:20 Dose: Not Given Tramadol HCl (Ultram) 50 mg PO TID PRN PRN Reason: Pain, moderate (4-7) Trazodone HCl (Desyrel) 100 mg PO HS PRN PRN Reason: Insomnia Last Admin: 07/21/18 00:03 Dose: 100 mg - Labs Labs: 07/21/18 18:16 07/21/18 18:16 PT 10.9 SECONDS (9.7-12.2) 07/21/18 18:16 INR 1.0 07/21/18 18:16 - Constitutional Appears: Well - Head Exam Head Exam: ATRAUMATIC, NORMAL INSPECTION, NORMOCEPHALIC - Eye Exam Eye Exam: EOMI, Normal appearance, PERRL Pupil Exam: NORMAL ACCOMODATION, PERRL - ENT Exam ENT Exam: Mucous Membranes Moist, Normal Exam - Neck Exam Neck Exam: Full ROM, Normal Inspection. absent: Lymphadenopathy - Respiratory Exam Respiratory Exam: Decreased Breath Sounds - Cardiovascular Exam Cardiovascular Exam: REGULAR RHYTHM, +S1, +S2 - GI/Abdominal Exam GI & Abdominal Exam: Soft, Diminished Bowel Sounds - Rectal Exam Rectal Exam: Deferred
[2018-07-23] MEDS: Lactated Ringer's 500 ML IV SCH (21:17)
--- NOTE | 2018-07-23 22:41 | CARD ---
APPROVED REPORT Date of service: 07/21/2018 EKG Measurement Heart [id number] <Conclusion> Normal sinus rhythm Normal ECG
[2018-07-24] MEDS: Lactated Ringer's 500 ML IV SCH (04:07)
[2018-07-24] MEDS: Pantoprazole 40 mg Susp UD PO SCH ×2 (05:35→17:33)
--- NOTE | 2018-07-24 05:47 | CP.PCM.PN ---
<Anupama Garcia - Last Filed: 07/24/18 08:07> Subjective - Date & Time of Evaluation Date of Evaluation: 07/24/18 Time of Evaluation: 05:44 - Subjective Subjective: Gastroenterology Fellow/PGY6 Progress Note Patient feels well. Denies chest pain or abdominal pain. Tolerated clear liquids and pudding. Denies bowel movement. A 12-point review of systems negative except for as above. Objective - Vital Signs/Intake and Output Vital Signs (last 24 hours): Temp Pulse Resp BP Pulse Ox 98.4 F 95 H 19 129/89 94 L 07/24/18 00:15 07/24/18 00:15 07/24/18 00:15 07/24/18 00:15 07/24/18 00:15 Intake and Output: 07/23/18 07/24/18 18:59 06:59 Intake Total 475 Balance 475 - Medications Medications: Current Medications Al Hydrox/Mg Hydrox/Simethicone (Maalox 30 Ml) 30 ml PO Q6 PRN PRN Reason: GI distress Cyclobenzaprine HCl (Flexeril) 5 mg PO TIDAC [facility] Last Admin: 07/23/18 21:14 Dose: 5 mg Folic Acid (Folic Acid) 1 mg PO DAILY [facility] Last Admin: 07/22/18 10:19 Dose: Not Given Gabapentin (Neurontin) 300 mg PO BID [facility] Last Admin: 07/23/18 17:02 Dose: 300 mg Heparin Sodium (Porcine) (Heparin) 5,000 units SC Q12 [facility] Last Admin: 07/23/18 21:15 Dose: Not Given Lactated Ringer's (Lactated Ringer's 500ml) 500 mls @ 75 mls/hr IV .Q6H40M [facility] Last Admin: 07/24/18 04:07 Dose: Not Given Insulin Aspart (Novolog) 0 unit SC ACHS [facility]; Protocol Last Admin: 07/23/18 21:18 Dose: Not Given Lorazepam (Ativan) 1 mg PO Q8 PRN PRN Reason: Anxiety Last Admin: 07/22/18 17:46 Dose: 1 mg Magnesium Oxide (Mag-Ox) 400 mg PO BID [facility] Last Admin: 07/23/18 17:01 Dose: 400 mg Morphine Sulfate (Morphine) 2 mg IVP Q6 PRN PRN Reason: Pain, severe (8-10) Last Admin: 07/24/18 00:08 Dose: 2 mg Multivitamins (Hexavitamin) 1 tab PO DAILY [facility] Last Admin: 07/22/18 10:19 Dose: Not Given Ondansetron HCl (Zofran Odt) 4 mg PO Q6 PRN PRN Reason: Nausea/Vomiting Last Admin: 07/22/18 18:12 Dose: 4 mg Pantoprazole Sodium (Protonix Susp) 40 mg PO 0600,1600 [facility] Last Admin: 07/24/18 05:35 Dose: 40 mg Sitagliptin Phosphate (Januvia) 25 mg PO DAILY [facility] Last Admin: 07/22/18 10:19 Dose: Not Given Sucralfate (Carafate Oral Susp) 1 gm PO QID [facility] Last Admin: 07/23/18 21:16 Dose: 1 gm Thiamine HCl (Vitamin B1 Tab) 100 mg PO DAILY [facility] Last Admin: 07/22/18 10:20 Dose: Not Given Tramadol HCl (Ultram) 50 mg PO TID PRN PRN Reason: Pain, moderate (4-7) Trazodone HCl (Desyrel) 100 mg PO HS PRN PRN Reason: Insomnia Last Admin: 07/21/18 00:03 Dose: 100 mg - Labs Labs: 07/21/18 18:16 07/21/18 18:16 PT 10.9 SECONDS (9.7-12.2) 07/21/18 18:16 INR 1.0 07/21/18 18:16 - Constitutional Appears: Non-toxic, No Acute Distress - Head Exam Head Exam: ATRAUMATIC, NORMOCEPHALIC - Eye Exam Eye Exam: EOMI, PERRL - ENT Exam ENT Exam: Mucous Membranes Moist, Normal Oropharynx - Neck Exam Neck Exam: Full ROM, Normal Inspection - Respiratory Exam Respiratory Exam: Clear to Ausculation Bilateral. absent: Rales, Rhonchi, Wheezes - Cardiovascular Exam Cardiovascular Exam: RRR, +S1, +S2 - GI/Abdominal Exam GI & Abdominal Exam: Soft, Normal Bowel Sounds. absent: Distended, Firm, Guarding, Rigid, Tenderness, Organomegaly Additional comments: LUQ PEG in place C/D/I - Extremities Exam Extremities Exam: Normal Inspection. absent: Pedal Edema - Neurological Exam Neurological Exam: Alert, Awake - Psychiatric Exam Psychiatric exam: Normal Affect, Normal Mood - Skin Skin Exam: Dry, Intact, Normal Color, Warm Assessment and Plan - Assessment and Plan (Free Text) Assessment: 43 year old male with PMH of distal esophageal stricture s/p G-tube placement 06/23/18 in setting of PUD (esophageal, gastric, duodenal) on EGDs November 2014 and polysubstance Abuse over ten years (EtOH/cocaine/heroin/benzodiazepines/tobacco), alcoholic pancreatitis 06/2018, Diabetes, and HTN presenting with dysphagia to solids. Prior EGD 06/17/2018 with repeat on 06/18 with pediatric scope but unable to traverse esophageal stricture at 30cm from incisors, negative for malignancy/HSV /CMV on pathology, LAGD esophagitis 15-35cm from incisors, and H. pylori negative gastritis. No prior colonoscopy. Plan: -POD1 (07/23) EGD showing peptic stricture (approximately 5mm diameter) at 28cm from incisors s/p CRE balloon 6-7-8mm dilatation with fluoroscopy without complication- tissue friable, LAGD esophagitis -continue PPI BID and carafate QID before meals -clear to full liquid diet as tolerated -no solid foods -continue tube feeds for optimize nutritional goals -obtain nutrition consult -counselled on limited opioid use -start Miralax daily -will require serial dilations -recommend repeat dilation in two weeks, will provide information to Dr. Massey's office to schedule repeat dilatation <Smith Jasso - Last Filed: 07/24/18 09:11> Objective - Vital Signs/Intake and Output Vital Signs (last 24 hours): Temp Pulse Resp BP Pulse Ox 98.0 F 102 H 20 139/97 H 97 07/24/18 07:10 07/24/18 08:19 07/24/18 07:10 07/24/18 08:19 07/24/18 07:10 Intake and Output: 07/24/18 07/24/18 06:59 18:59 Intake Total 240 Balance 240 - Medications Medications: Current Medications Al Hydrox/Mg Hydrox/Simethicone (Maalox 30 Ml) 30 ml PO Q6 PRN PRN Reason: GI distress Cyclobenzaprine HCl (Flexeril) 5 mg PO TIDAC [facility] Last Admin: 07/24/18 08:10 Dose: 5 mg Folic Acid (Folic Acid) 1 mg PO DAILY [facility] Last Admin: 07/22/18 10:19 Dose: Not Given Gabapentin (Neurontin) 300 mg PO BID [facility] Last Admin: 07/23/18 17:02 Dose: 300 mg Heparin Sodium (Porcine) (Heparin) 5,000 units SC Q12 [facility] Last Admin: 07/23/18 21:15 Dose: Not Given Lactated Ringer's (Lactated Ringer's 500ml) 500 mls @ 75 mls/hr IV .Q6H40M [facility] Last Admin: 07/24/18 04:07 Dose: Not Given Insulin Aspart (Novolog) 0 unit SC ACHS [facility]; Protocol Last Admin: 07/24/18 08:10 Dose: 1 u Lorazepam (Ativan) 1 mg PO Q8 PRN PRN Reason: Anxiety Last Admin: 07/22/18 17:46 Dose: 1 mg Magnesium Oxide (Mag-Ox) 400 mg PO BID [facility] Last Admin: 07/23/18 17:01 Dose: 400 mg Morphine Sulfate (Morphine) 2 mg IVP Q6 PRN PRN Reason: Pain, severe (8-10) Last Admin: 07/24/18 08:10 Dose: 2 mg Multivitamins (Hexavitamin) 1 tab PO DAILY [facility] Last Admin: 07/22/18 10:19 Dose: Not Given Ondansetron HCl (Zofran Odt) 4 mg PO Q6 PRN PRN Reason: Nausea/Vomiting Last Admin: 07/22/18 18:12 Dose: 4 mg Pantoprazole Sodium (Protonix Susp) 40 mg PO 0600,1600 [facility] Last Admin: 07/24/18 05:35 Dose: 40 mg Polyethylene Glycol (Miralax) 17 gm PO DAILY [facility] Sitagliptin Phosphate (Januvia) 25 mg PO DAILY [facility] Last Admin: 07/22/18 10:19 Dose: Not Given Sucralfate (Carafate Oral Susp) 1 gm PO QID [facility] Last Admin: 07/23/18 21:16 Dose: 1 gm Thiamine HCl (Vitamin B1 Tab) 100 mg PO DAILY [facility] Last Admin: 07/22/18 10:20 Dose: Not Given Tramadol HCl (Ultram) 50 mg PO TID PRN PRN Reason: Pain, moderate (4-7) Trazodone HCl (Desyrel) 100 mg PO HS PRN PRN Reason: Insomnia Last Admin: 07/21/18 00:03 Dose: 100 mg - Labs Labs: 07/21/18 18:16 07/21/18 18:16 PT 10.9 SECONDS (9.7-12.2) 07/21/18 18:16 INR 1.0 07/21/18 18:16 Attending/Attestation - Attestation I have personally seen and examined this patient.: Yes I have fully participated in the care of the patient.: Yes I have reviewed all pertinent clinical information, including history, physical exam and plan: Yes Notes (Text): 07/24/18 09:07 I have seen and examined patient with GI fellow. No acute events overnight. He reports substernal burning but denies chest pain, nausea, vomiting, dysphagia, odynophagia, fever/chills. Tolerating PO liquids without difficulty. Review of vitals from today shows tachycardia. History of polysubstance abuse Dysphagia, esophageal stricture - s/p EGD with CRE dilation yesterday - Liquid diet as tolerated - Continue with gastrostomy feeding as tolerated for ongoing nutritional support - Continue with twice daily PPI therapy and carafate - ETOH and NSAID avoidance - Patient will require repeat endoscopy with dilation within 2 weeks, to be scheduled as outpatient with Dr. Massey (office contact information provided to patient). No further planned GI intervention at this time, will sign off case. Please reconsult as necessary, thank you.
[2018-07-24 08:02] VITALS: RESP 20
[2018-07-24] MEDS: (Novolog) Insulin Aspart, Recombinant 100 u/ml 10 ml vial SC SCH ×5 (08:10→22:33)
[2018-07-24] MEDS: Sucralfate 1 gm/10 ml Oral Susp UD PO SCH ×4 (09:40→22:32)
[2018-07-24] MEDS: Magnesium Oxide 400 mg Tab UD PO SCH ×2 (09:40→17:33)
[2018-07-24] MEDS: POLYETHYLENE GLYCOL 3350 17 GM/Dose PACKET PO SCH (09:41)
[2018-07-24] MEDS: Multiple Vitamins Tab PO SCH (09:41)
[2018-07-24 11:53] LABS: BASO # 0.1 K/uL (0.0-0.2); EOS # 0.2 K/uL (0.0-0.7); EOS % 2.1 % (0.0-4.0); HEMOGLOBIN 12.1 g/dL (12.0-18.0); LYMPH # 2.8 K/uL (1.0-4.3); LYMPH % 29.2 % (20.0-40.0); MEAN CELL VOLUME 80.9 fL (80.0-94.0); MEAN CORPUSCULAR HEMOGLOBIN 26.8 pg (27.0-31.0); MEAN CORPUSCULAR HGB CONC 33.1 g/dL (33.0-37.0); MONO # 0.4 K/uL (0.0-0.8); MONO % 4.7 % (0.0-10.0); RBC 4.5 Mil/uL (4.40-5.90); WHITE BLOOD COUNT 9.5 K/uL (4.8-10.8)
[2018-07-24 11:56] LABS: INR 1.1; PROTHROMBIN TIME 11.9 SECONDS (9.7-12.2)
[2018-07-24 12:18] LABS: ALB/GLOB RATIO 1.3 (1.0-2.1); ALBUMIN 3.8 g/dL (3.5-5.0); ALT/SGPT 15 U/L (21-72); AST/SGOT 20 U/L (17-59); BLOOD UREA NITROGEN 10 mg/dL (9-20); CALCIUM 9.3 mg/dl (8.6-10.4); GFR NON-AFRICAN AMERICAN > 60
--- NOTE | 2018-07-24 19:51 | CP.PCM.PN ---
Subjective - Date & Time of Evaluation Date of Evaluation: 07/24/18 Time of Evaluation: 09:30 - Subjective Subjective: clinically same Objective - Vital Signs/Intake and Output Vital Signs (last 24 hours): Temp Pulse Resp BP Pulse Ox 97.9 F 89 20 121/76 99 07/24/18 15:00 07/24/18 15:00 07/24/18 15:00 07/24/18 15:00 07/24/18 15:00 - Medications Medications: Current Medications Al Hydrox/Mg Hydrox/Simethicone (Maalox 30 Ml) 30 ml PO Q6 PRN PRN Reason: GI distress Cyclobenzaprine HCl (Flexeril) 5 mg PO TIDAC [facility] Last Admin: 07/24/18 17:33 Dose: 5 mg Folic Acid (Folic Acid) 1 mg PO DAILY [facility] Last Admin: 07/24/18 09:41 Dose: 1 mg Gabapentin (Neurontin) 300 mg PO BID [facility] Last Admin: 07/24/18 17:34 Dose: 300 mg Lactated Ringer's (Lactated Ringer's 500ml) 500 mls @ 75 mls/hr IV .Q6H40M [facility] Last Admin: 07/24/18 04:07 Dose: Not Given Insulin Aspart (Novolog) 0 unit SC [facility]; Protocol Last Admin: 07/24/18 17:34 Dose: 1 u Lorazepam (Ativan) 1 mg PO Q8 PRN PRN Reason: Anxiety Last Admin: 07/22/18 17:46 Dose: 1 mg Magnesium Oxide (Mag-Ox) 400 mg PO BID [facility] Last Admin: 07/24/18 17:33 Dose: 400 mg Morphine Sulfate (Morphine) 2 mg IVP Q6 PRN PRN Reason: Pain, severe (8-10) Last Admin: 07/24/18 14:33 Dose: 2 mg Multivitamins (Hexavitamin) 1 tab PO DAILY [facility] Last Admin: 07/24/18 09:41 Dose: 1 tab Ondansetron HCl (Zofran Odt) 4 mg PO Q6 PRN PRN Reason: Nausea/Vomiting Last Admin: 07/22/18 18:12 Dose: 4 mg Pantoprazole Sodium (Protonix Susp) 40 mg PO 0600,1600 [facility] Last Admin: 07/24/18 17:33 Dose: 40 mg Polyethylene Glycol (Miralax) 17 gm PO DAILY [facility] Last Admin: 07/24/18 09:41 Dose: 17 gm Sitagliptin Phosphate (Januvia) 25 mg PO DAILY [facility] Last Admin: 07/24/18 09:41 Dose: 25 mg Sucralfate (Carafate Oral Susp) 1 gm PO QID [facility] Last Admin: 07/24/18 17:33 Dose: 1 gm Thiamine HCl (Vitamin B1 Tab) 100 mg PO DAILY [facility] Last Admin: 07/24/18 09:40 Dose: 100 mg Tramadol HCl (Ultram) 50 mg PO TID PRN PRN Reason: Pain, moderate (4-7) Trazodone HCl (Desyrel) 100 mg PO HS PRN PRN Reason: Insomnia Last Admin: 07/21/18 00:03 Dose: 100 mg - Labs Labs: 07/24/18 11:37 07/24/18 11:37 PT 11.9 SECONDS (9.7-12.2) 07/24/18 11:37 INR 1.1 07/24/18 11:37 - Constitutional Appears: Well - Head Exam Head Exam: ATRAUMATIC, NORMAL INSPECTION, NORMOCEPHALIC - Eye Exam Eye Exam: EOMI, Normal appearance, PERRL Pupil Exam: NORMAL ACCOMODATION, PERRL - ENT Exam ENT Exam: Mucous Membranes Moist, Normal Exam - Neck Exam Neck Exam: Full ROM, Normal Inspection. absent: Lymphadenopathy - Respiratory Exam Respiratory Exam: Decreased Breath Sounds - Cardiovascular Exam Cardiovascular Exam: REGULAR RHYTHM, +S1, +S2 - GI/Abdominal Exam GI & Abdominal Exam: Soft, Diminished Bowel Sounds - Rectal Exam Rectal Exam: Deferred
[2018-07-25] MEDS: Lactated Ringer's 500 ML IV SCH ×3 (04:30→18:18)
[2018-07-25] MEDS: Pantoprazole 40 mg Susp UD PO SCH ×2 (05:39→16:23)
[2018-07-25] MEDS: (Novolog) Insulin Aspart, Recombinant 100 u/ml 10 ml vial SC SCH ×4 (07:49→21:36)
[2018-07-25] MEDS: POLYETHYLENE GLYCOL 3350 17 GM/Dose PACKET PO SCH ×2 (09:25→10:34)
[2018-07-25] MEDS: Multiple Vitamins Tab PO SCH (09:25)
[2018-07-25] MEDS: Sucralfate 1 gm/10 ml Oral Susp UD PO SCH ×4 (09:25→21:08)
[2018-07-25] MEDS: Magnesium Oxide 400 mg Tab UD PO SCH ×2 (09:25→18:17)
--- NOTE | 2018-07-25 20:00 | CP.PCM.PN ---
Subjective - Date & Time of Evaluation Date of Evaluation: 07/25/18 Time of Evaluation: 09:45 - Subjective Subjective: clinically same Objective - Vital Signs/Intake and Output Vital Signs (last 24 hours): Temp Pulse Resp BP Pulse Ox 98.9 F 111 H 20 115/81 96 07/25/18 15:00 07/25/18 15:00 07/25/18 15:00 07/25/18 15:00 07/25/18 15:00 - Medications Medications: Current Medications Al Hydrox/Mg Hydrox/Simethicone (Maalox 30 Ml) 30 ml PO Q6 PRN PRN Reason: GI distress Cyclobenzaprine HCl (Flexeril) 5 mg PO TIDAC [facility] Last Admin: 07/25/18 16:23 Dose: 5 mg Folic Acid (Folic Acid) 1 mg PO DAILY [facility] Last Admin: 07/25/18 09:24 Dose: 1 mg Gabapentin (Neurontin) 300 mg PO BID [facility] Last Admin: 07/25/18 18:17 Dose: 300 mg Lactated Ringer's (Lactated Ringer's 500ml) 500 mls @ 75 mls/hr IV .Q6H40M [facility] Last Admin: 07/25/18 18:18 Dose: Not Given Insulin Aspart (Novolog) [facility]; Protocol Last Admin: 07/25/18 17:00 Dose: Not Given Lorazepam (Ativan) 1 mg PO Q8 PRN PRN Reason: Anxiety Last Admin: 07/25/18 16:29 Dose: 1 mg Magnesium Oxide (Mag-Ox) 400 mg PO BID [facility] Last Admin: 07/25/18 18:17 Dose: 400 mg Morphine Sulfate (Morphine) 2 mg IVP Q6 PRN PRN Reason: Pain, severe (8-10) Last Admin: 07/25/18 16:23 Dose: 2 mg Multivitamins (Hexavitamin) 1 tab PO DAILY [facility] Last Admin: 07/25/18 09:25 Dose: 1 tab Ondansetron HCl (Zofran Odt) 4 mg PO Q6 PRN PRN Reason: Nausea/Vomiting Last Admin: 07/25/18 18:22 Dose: 4 mg Pantoprazole Sodium (Protonix Susp) 40 mg PO 0600,1600 [facility] Last Admin: 07/25/18 16:23 Dose: 40 mg Polyethylene Glycol (Miralax) 17 gm PO DAILY [facility] Last Admin: 07/25/18 10:34 Dose: Not Given Sitagliptin Phosphate (Januvia) 25 mg PO DAILY [facility] Last Admin: 07/25/18 09:24 Dose: 25 mg Sucralfate (Carafate Oral Susp) 1 gm PO QID [facility] Last Admin: 07/25/18 18:18 Dose: 1 gm Thiamine HCl (Vitamin B1 Tab) 100 mg PO DAILY [facility] Last Admin: 07/25/18 09:24 Dose: 100 mg Tramadol HCl (Ultram) 50 mg PO TID PRN PRN Reason: Pain, moderate (4-7) Trazodone HCl (Desyrel) 100 mg PO HS PRN PRN Reason: Insomnia Last Admin: 07/25/18 02:36 Dose: 100 mg - Labs Labs: 07/24/18 11:37 07/24/18 11:37 PT 11.9 SECONDS (9.7-12.2) 07/24/18 11:37 INR 1.1 07/24/18 11:37 - Constitutional Appears: Well - Head Exam Head Exam: ATRAUMATIC, NORMAL INSPECTION, NORMOCEPHALIC - Eye Exam Eye Exam: EOMI, Normal appearance, PERRL Pupil Exam: NORMAL ACCOMODATION, PERRL - ENT Exam ENT Exam: Mucous Membranes Moist, Normal Exam - Neck Exam Neck Exam: Full ROM, Normal Inspection. absent: Lymphadenopathy - Respiratory Exam Respiratory Exam: Decreased Breath Sounds - Cardiovascular Exam Cardiovascular Exam: REGULAR RHYTHM, +S1, +S2 - GI/Abdominal Exam GI & Abdominal Exam: Soft, Diminished Bowel Sounds - Rectal Exam Rectal Exam: Deferred
[2018-07-26] MEDS: Pantoprazole 40 mg Susp UD PO SCH ×2 (05:29→16:28)
[2018-07-26] MEDS: (Novolog) Insulin Aspart, Recombinant 100 u/ml 10 ml vial SC SCH ×3 (08:00→16:52)
[2018-07-26] MEDS: Sucralfate 1 gm/10 ml Oral Susp UD PO SCH ×3 (10:33→17:44)
[2018-07-26] MEDS: POLYETHYLENE GLYCOL 3350 17 GM/Dose PACKET PO SCH (10:34)
[2018-07-26] MEDS: Multiple Vitamins Tab PO SCH (10:39)
[2018-07-26] MEDS: Magnesium Oxide 400 mg Tab UD PO SCH ×2 (11:48→17:44)
--- NOTE | 2018-07-26 15:43 | CP.PCM.PN ---
Subjective - Date & Time of Evaluation Date of Evaluation: 07/26/18 Objective - Vital Signs/Intake and Output Vital Signs (last 24 hours): Temp Pulse Resp BP Pulse Ox 98.1 F 90 20 110/77 97 07/26/18 07:02 07/26/18 07:02 07/26/18 07:02 07/26/18 07:02 07/26/18 07:02 Intake and Output: 07/26/18 07/26/18 06:59 18:59 Intake Total 300 Balance 300 - Medications Medications: Current Medications Al Hydrox/Mg Hydrox/Simethicone (Maalox 30 Ml) 30 ml PO Q6 PRN PRN Reason: GI distress Last Admin: 07/26/18 10:34 Dose: 30 ml Cyclobenzaprine HCl (Flexeril) 5 mg PO TIDAC [facility] Last Admin: 07/26/18 11:48 Dose: 5 mg Folic Acid (Folic Acid) 1 mg PO DAILY [facility] Last Admin: 07/26/18 10:32 Dose: 1 mg Gabapentin (Neurontin) 300 mg PO BID [facility] Last Admin: 07/26/18 10:33 Dose: 300 mg Insulin Aspart (Novolog) 0 unit SC [facility]; Protocol Last Admin: 07/26/18 12:41 Dose: 3 u Lorazepam (Ativan) 1 mg PO Q8 PRN PRN Reason: Anxiety Last Admin: 07/26/18 10:33 Dose: 1 mg Magnesium Oxide (Mag-Ox) 400 mg PO BID [facility] Last Admin: 07/26/18 11:48 Dose: 400 mg Morphine Sulfate (Morphine) 2 mg IVP Q6 PRN PRN Reason: Pain, severe (8-10) Last Admin: 07/26/18 10:34 Dose: 2 mg Multivitamins (Hexavitamin) 1 tab PO DAILY [facility] Last Admin: 07/26/18 10:39 Dose: 1 tab Ondansetron HCl (Zofran Odt) 4 mg PO Q6 PRN PRN Reason: Nausea/Vomiting Last Admin: 07/25/18 18:22 Dose: 4 mg Pantoprazole Sodium (Protonix Susp) 40 mg PO 0600,1600 [facility] Last Admin: 07/26/18 05:29 Dose: 40 mg Polyethylene Glycol (Miralax) 17 gm PO DAILY [facility] Last Admin: 07/26/18 10:34 Dose: Not Given Sitagliptin Phosphate (Januvia) 25 mg PO DAILY [facility] Last Admin: 07/26/18 10:33 Dose: 25 mg Sucralfate (Carafate Oral Susp) 1 gm PO QID [facility] Last Admin: 07/26/18 13:57 Dose: 1 gm Thiamine HCl (Vitamin B1 Tab) 100 mg PO DAILY [facility] Last Admin: 07/26/18 10:33 Dose: 100 mg Tramadol HCl (Ultram) 50 mg PO TID PRN PRN Reason: Pain, moderate (4-7) Trazodone HCl (Desyrel) 100 mg PO HS PRN PRN Reason: Insomnia Last Admin: 07/25/18 22:25 Dose: 100 mg - Labs Labs: 07/24/18 11:37 07/24/18 11:37 PT 11.9 SECONDS (9.7-12.2) 07/24/18 11:37 INR 1.1 07/24/18 11:37 - Constitutional Appears: Well - Head Exam Head Exam: ATRAUMATIC, NORMAL INSPECTION, NORMOCEPHALIC - Eye Exam Eye Exam: EOMI, Normal appearance, PERRL Pupil Exam: NORMAL ACCOMODATION, PERRL - ENT Exam ENT Exam: Mucous Membranes Moist, Normal Exam - Neck Exam Neck Exam: Full ROM, Normal Inspection. absent: Lymphadenopathy - Respiratory Exam Respiratory Exam: Decreased Breath Sounds - Cardiovascular Exam Cardiovascular Exam: REGULAR RHYTHM, +S1, +S2 - GI/Abdominal Exam GI & Abdominal Exam: Soft, Diminished Bowel Sounds - Rectal Exam Rectal Exam: Deferred
[2018-07-26 18:43] VITALS: BP 111/78; PULSE 106; TEMP 97.9; O2SAT 99
== END 2018-07-26 19:15 | disposition home or self-care (01) | DRG 182 ==
LOC: C.ER 10:38 → C.9E 13:30 → C.6T 14:12
PROVIDERS: ADMIT Internal Medicine Nephrology; ATTEND Internal Medicine Nephrology
PROC: 0D718ZZ Dilation of Upper Esophagus, Via Natural or Artificial Opening Endoscopic (ICD-10-PCS; principal; 2018-07-20)
DX: K22.2 Esophageal obstruction (principal); E11.649 Type 2 diabetes mellitus with hypoglycemia without coma; K94.23 Gastrostomy malfunction; F41.9 Anxiety disorder, unspecified; Z87.11 Personal history of peptic ulcer disease; I10 Essential (primary) hypertension; R62.7 Adult failure to thrive; Z87.19 Personal history of other diseases of the digestive system; Z87.891 Personal history of nicotine dependence; Z91.19 Patient's noncompliance with other medical treatment and regimen

== ENCOUNTER 2018-08-13 12:36 | Inpatient (IN) | payer OTHER ==
[2018-08-13] MEDS ORDERED: Sodium Chloride 0.9% 1,000 ML IV ONE ×2 (12:45→14:30)
[2018-08-13 13:04] VITALS: BMI 16.2
[2018-08-13] MEDS ORDERED: Propofol 10 mg/ml 1,000 MG/100 ML VIAL ONE (13:06)
[2018-08-13] MEDS ORDERED: Etomidate 20 mg/10ml Inj IV ONE (13:06)
--- NOTE | 2018-08-13 13:12 | C.PDOC ---
History Of Present Illness Patient MOLLY from [facility], [facility] was not seen by management for several days, and when they checked on him he was completely obtunded. EMS reports he was not arousable to any stimulation, but had pulse and was breathing spontaneously. They think he was inserted alcohol directly into his PEG tube. Prior records reveal PMHx of NIDDM, pancreatitis, alcohol abuse, gastritis, anxiety. Time Seen by Provider: 08/13/18 13:05 Chief Complaint (Nursing): Altered Mental Status History Per: EMS History/Exam Limitations: clinical condition Onset/Duration Of Symptoms: Unknown Current Symptoms Are (Timing): Still Present Severity: Severe Past Medical History Reviewed: Historical Data, Nursing Documentation, Vital Signs - Medical History PMH: Anxiety, Diabetes (metformin), Gastritis, Pancreatitis - [facility] Procedures CLOSURE SKIN & SUBCUTANEOUS NEC (06/04/03) DETOXIFICATION SERVICES FOR SUBSTANCE ABUSE TREATMENT (04/24/18) DILATION OF UPPER ESOPHAGUS, ENDO (07/20/18) ESOPHAGOGASTRODUODENOSCOPY [EGD] W/CLOSED BIOPSY (11/12/14) GROUP TECHNICAL SERVICES MANAGER FOR SUBSTANCE ABUSE TREATMENT, PSYCHOEDUCATION (04/24/18) GROUP TECHNICAL SERVICES MANAGER FOR SUBSTANCE ABUSE, COGNITIVE BEHAVIORAL (04/24/18) GROUP PSYCHOTHERAPY (04/24/18) INDIV PSYCHOTHERAPY FOR SUBSTANCE ABUSE TREATMENT, SUPPORT (04/24/18) INDIV PSYCHOTHERAPY FOR SUBSTANCE ABUSE, COGNITIV BEHAVIORAL (04/24/18) INDIV PSYCHOTHERAPY FOR SUBSTANCE ABUSE, PSYCHOEDUCATION (04/24/18) INDIVIDUAL PSYCHOTHERAPY, COGNITIVE-BEHAVIORAL (04/24/18) INDIVIDUAL PSYCHOTHERAPY, SUPPORTIVE (04/24/18) INFLUENZA VACCINATION (02/05/13) INSERTION OF FEEDING DEVICE INTO STOMACH, OPEN APPROACH (06/13/18) INSPECTION OF LARYNX, ENDO (06/13/18) LARYGNOSCOPY AND OTH TRACHEOSCOPY (05/02/14) PHARMACOTHERAPY FOR SUBSTANCE ABUSE, NICOTINE REPLACE (06/20/17) Family History: States: No Known Family Hx - Social History Hx Tobacco Use: Yes Hx Alcohol Use: Yes Hx Substance Use: Yes - Immunization History Hx Tetanus Toxoid Vaccination: Yes Hx Influenza Vaccination: Yes (02/2018) Hx Pneumococcal Vaccination: No Review Of Systems Review Of Systems: ROS cannot be obtained secondary to pt's inabilty to answer questions. Physical Exam - Physical Exam Appears: Unkempt, Other (obtundd) Skin: Other (scattered excoriations on face/arms/torso) Head: Normacephalic Eye(s): bilateral: Other (dilated and reactive B/L ) Oral Mucosa: Moist, Other ((+) ETOH smell during intubation) Tongue: Normal Appearing, No Swelling Lips: Normal Appearing, No Swelling Cardiovascular: Rhythm Regular Respiratory: Normal Breath Sounds (equal breath sounds B/L ) Gastrointestinal/Abdominal: Bowel Sounds, Soft, Other (midline surgical scar inferior to umiblicus, (+) PEG tube) Neurological/Psych: Other (obtunded, GCS 3) ED Course And Treatment Progress Note: Patient obtunded with GCS 3 - emergently intubated by me for airway protection Endotracheal Intubation - Endotracheal Intubation Intubated With ETT Size: 75 Blade Type Used: Curved Indication: Airway Protection Intubated: Orally Pre-Intubation Airway Assessment: Ventilated And Oxygenated, Does Not Appear To Have A Difficult Airway Medications Used During Pre-Intubation: Etomidate (20mg) Post-Intubation Assessment: ETT Secured AT (cm): (23), Breath Sounds Equal Bilat, Placement Confirmed Via CXR, Color Change W/End Tidal CO2 Detector Disposition - Disposition Disposition Time: 13:30 Condition: FAIR Forms: [facility] (Malaysian) - Clinical Impression Clinical Impression: Alcohol intoxication, Obtunded Physician Patient Turnover Patient Signed Over To: Luz Maria Vance Handoff Comments: pending labs/studies, reassess
[2018-08-13] MEDS ORDERED: Propofol 10 mg/ml 1,000 MG/100 ML VIAL IV PRN (13:15)
[2018-08-13 13:43] LABS: BASO # 0.1 K/uL (0.0-0.2); BASO % 0.9 % (0.0-2.0); EOS # 0.1 K/uL (0.0-0.7); EOS % 0.9 % (0.0-4.0); LYMPH # 4.5 K/uL (1.0-4.3); LYMPH % 38.6 % (20.0-40.0); MEAN CELL VOLUME 82.5 fL (80.0-94.0); MEAN CORPUSCULAR HEMOGLOBIN 27.1 pg (27.0-31.0); MEAN CORPUSCULAR HGB CONC 32.9 g/dL (33.0-37.0); MEAN PLATELET VOLUME 7.9 fL (7.2-11.7); MONO # 0.7 K/uL (0.0-0.8); MONO % 6.2 % (0.0-10.0); NEUT # 6.3 K/uL (1.8-7.0); NEUT % 53.4 % (50.0-75.0); NRBC % 0.2 % (0.0-2.0); RBC 4.78 Mil/uL (4.40-5.90); RED CELL DISTRIBUTION WIDTH 18.9 % (11.5-14.5); WHITE BLOOD COUNT 11.7 K/uL (4.8-10.8)
[2018-08-13 13:46] LABS: ABG ALLEN TEST POS; ARTERIAL BLOOD GAS HCO3 24.7 mmol/L (21-28); ARTERIAL BLOOD GAS O2 SAT 99.9 % (95-98); ARTERIAL BLOOD GAS PCO2 33 mm/Hg (35-45); ARTERIAL BLOOD GAS PH 7.45 (7.35-7.45); ARTERIAL BLOOD GAS PO2 272 mm/Hg (80-100); ARTERIAL BLOOD GAS TCO2 23.9 mmol/L (22-28)
[2018-08-13 13:49] LABS: URINE BILIRUBIN NEGATIVE (NEGATIVE); URINE BLOOD NEGATIVE (NEGATIVE); URINE CLARITY Clear (Clear); URINE COLOR Yellow (YELLOW); URINE GLUCOSE (UA) NORMAL (Normal); URINE LEUKOCYTE ESTERASE NEG Leu/uL (Negative); URINE PROTEIN 1+ mg/dL (NEGATIVE); URINE UROBILINOGEN NORMAL mg/dL (0.2-1.0)
[2018-08-13 13:58] LABS: ALB/GLOB RATIO 1.4 (1.0-2.1); ALBUMIN 3.8 g/dL (3.5-5.0); ALT/SGPT 8 U/L (21-72); AST/SGOT 36 U/L (17-59); BLOOD UREA NITROGEN 13 mg/dL (9-20); CALCIUM 7.9 mg/dl (8.6-10.4); GFR NON-AFRICAN AMERICAN > 60
--- NOTE | 2018-08-13 14:05 | RAD ---
Date of service: 08/13/2018 PROCEDURE: CHEST RADIOGRAPH, 1 VIEW HISTORY: postintubation COMPARISON: 07/20/2018 FINDINGS: LUNGS: Clear. PLEURA: No pneumothorax or pleural fluid seen. CARDIOVASCULAR: No aortic atherosclerotic calcification present. Normal heart size. Endotracheal tube tip approximately 3.3 cm above the tracheal alison. A nasogastric tube is seen with its tip at the level of the mid to upper mediastinum, at the level of the alison.. This should be replaced or repositioned. OSSEOUS STRUCTURES: No significant abnormalities. VISUALIZED UPPER ABDOMEN: Normal. OTHER FINDINGS: None. IMPRESSION: ET tube appropriately position. Nasogastric tube tip is seen at the level of the alison in the mid upper thorax. The nasogastric tube should be replaced or repositioned. The findings in this examination were discussed with RADHA Davis in the ER at 2 p.m. on 08/13/2018.
[2018-08-13 14:26] LABS: BARBITURATES, UR NEGATIVE (NEGATIVE); BENZODIAZEPINES, UR NEGATIVE (NEGATIVE); PHENCYCLIDINE, UR NEGATIVE (NEGATIVE)
[2018-08-13 14:57] LABS: OPIATES, UR POSITIVE (NEGATIVE)
--- NOTE | 2018-08-13 15:54 | CT ---
Date of service: 08/13/2018 PROCEDURE: CT HEAD WITHOUT CONTRAST. HISTORY: OBTUNDED COMPARISON: None available. TECHNIQUE: Axial computed tomography images were obtained through the head/brain without intravenous contrast. Radiation dose: Total exam DLP = 1325.98 mGy-cm. This CT exam was performed using one or more of the following dose reduction techniques: Automated exposure control, adjustment of the mA and/or kV according to patient size, and/or use of iterative reconstruction technique. FINDINGS: HEMORRHAGE: Hyperdense changes at the right parietal lobe are less apparent in the posterior margins suggesting improved petechial contusions. No new hemorrhage is appreciated above or below the tentorium or within/around the brainstem. BRAIN: No mass effect or edema. No atrophy or chronic microvascular ischemic changes. Normal corticomedullary pattern appreciated. No focal or diffuse edema pattern evident. Midline brain anatomy appears stable. VENTRICLES: Unremarkable. No hydrocephalus. CALVARIUM: Unremarkable. PARANASAL SINUSES: Unremarkable as visualized. No significant inflammatory changes. MASTOID AIR CELLS: Unremarkable as visualized. No inflammatory changes. OTHER FINDINGS: None. IMPRESSION: Interval improvement in right parietal petechial hemorrhage. No mass effect, new intracranial hemorrhage or hydrocephalus. Adequate preservation of the corticomedullary pattern is identified.
[2018-08-13] MEDS ORDERED: Multivitamin (MVI) 10 ML, Thiamine 100 MG, Folic Acid 1 MG in Sodium Chloride 0.9% 1,00... IV ONE (17:42)
[2018-08-13] MEDS ORDERED: Dextrose 50% SYRINGE Inj (50 ml) IV PRN (17:49)
[2018-08-13] MEDS ORDERED: Glucagon Recombinant 1 mg Inj IM PRN (17:49)
--- NOTE | 2018-08-13 18:58 | CP.PCM.CON ---
<Dylan Molina - Last Filed: 08/13/18 18:57> History of Present Illness - History of Present Illness History of Present Illness: History obtained through chart review given patient's current mental status. Pt is a 43 y/o male with hx of polysubstance abuse (Cocaine, Benzos, Opiates, and ETOH), Hx of Pancreatitis, DMII (on insulin), Gastritis, Anxiety, PEG tube (due to esophageal strictures), frequent ER visits for intoxication, hx of Alcoholic seizures brought to ED by EMS after being found unresponsive in [facility]. Pt was intubated in ED for protection of airways given his mental status. PMD: None PMHX: Polysubstance abuse (Cocaine, Benzos, Opiates, and ETOH), Hx of Pancreatitis, DMII (on insulin), Chronic Gastritis, Anxiety, PEG tube (due to esophageal strictures) PSurgHx: Open Gastrostomy w/ PEG placement (06/2018) NKDA Social: Active smoker, Past Utox w/ (+) Opiates, Cocaine, and Heroine Review of Systems - Review of Systems Systems not reviewed;Unavailable: Altered Mental Status Past Patient History - Infectious Disease Hx of Infectious Diseases: None - Tetanus Immunizations Tetanus Immunization: Unknown - Past Medical History & Family History Past Medical History?: Yes - Past Social History Smoking Status: Heavy Smoker > 10 Cigarettes Daily - CARDIAC Hx Hypertension: No - PULMONARY Hx Tuberculosis: No Other/Comment: Currently smokes 2 ppd - NEUROLOGICAL Hx Seizures: No - HEENT Hx HEENT Problems: No - RENAL Hx Chronic Kidney Disease: No - ENDOCRINE/METABOLIC Hx Diabetes Mellitus Type 2: Yes - HEMATOLOGICAL/ONCOLOGICAL Hx Human Immunodeficiency Virus (HIV): No - INTEGUMENTARY Hx Dermatological Problems: No - MUSCULOSKELETAL/RHEUMATOLOGICAL Hx Falls: Yes (from hypoglycemia, feeling lightheaded) - GASTROINTESTINAL Hx Gastritis: Yes Hx Pancreatitis: Yes - GENITOURINARY/GYNECOLOGICAL Hx Sexually Transmitted Disorders: No - PSYCHIATRIC Hx Substance Use: Yes - SURGICAL HISTORY Hx Surgeries: No - ANESTHESIA Hx Anesthesia: Yes Meds Allergies/Adverse Reactions: Allergies Allergy/AdvReac Type Severity Reaction Status Date / Time No Known Allergies Allergy Verified 07/20/18 10:47 - Medications Medications: Current Medications Propofol (Diprivan) 1,000 mg in 100 mls @ 1.497 mls/hr IV .Q24H PRN; Protocol PRN Reason: TITRATE PER MD ORDER Last Admin: 08/13/18 13:15 Dose: 1.497 mls/hr Physical Exam - Constitutional Appears: No Acute Distress (Sedated) - Head Exam Head Exam: ATRAUMATIC, NORMAL INSPECTION - Eye Exam Eye Exam: Normal appearance, PERRL. absent: EOMI, Nystagmus, Scleral icterus - Respiratory Exam Respiratory Exam: Clear to Auscultation Bilateral. absent: Accessory Muscle Use, Rales, Wheezes - Cardiovascular Exam Cardiovascular Exam: REGULAR RHYTHM, +S1, +S2. absent: Systolic Murmur - GI/Abdominal Exam GI & Abdominal Exam: Normal Bowel Sounds, Soft. absent: Tenderness Additional comments: Left upper abdomen PEG tube, no redness, swelling or bleeding - Extremities Exam Extremities exam: Positive for: normal capillary refill, normal inspection, p edal pulses present. Negative for: pedal edema - Neurological Exam Neurological exam: Altered, Reflexes Normal - Skin Skin Exam: Normal Color Results - Vital Signs Recent Vital Signs: Last Vital Signs Temp 95.6 F L 08/13/18 12:37 Pulse 104 H 08/13/18 15:40 Resp 18 08/13/18 15:40 BP 98/60 L 08/13/18 15:39 Pulse Ox 100 08/13/18 15:40 - Labs Result Diagrams: 08/13/18 13:35 08/13/18 13:35 Labs: Laboratory Results - last 24 hr 08/13/18 08/13/18 08/13/18 13:35 13:35 13:35 WBC 11.7 H RBC 4.78 Hgb 13.0 Hct 39.5 MCV 82.5 MCH 27.1 MCHC 32.9 L RDW 18.9 H Plt Count 541 H D MPV 7.9 Neut % (Auto) 53.4 Lymph % (Auto) 38.6 [place] % (Auto) 6.2 Eos % (Auto) 0.9 Baso % (Auto) 0.9 Neut # (Auto) 6.3 Lymph # (Auto) 4.5 H [place] # (Auto) 0.7 Eos # (Auto) 0.1 Baso # (Auto) 0.1 Puncture Site pCO2 pO2 HCO3 ABG pH ABG Total CO2 ABG O2 Saturation ABG Base Excess Nathaniel Test ABG Potassium A-a O2 Difference Respiratory Index Glucose Lactate Vent Mode Mechanical Rate FiO2 Tidal Volume PEEP Crit Value Called To Crit Value Called By Crit Value Read Back Blood Gas Notified Time Sodium 142 Potassium 3.2 L Chloride 102 Carbon Dioxide 25 Anion Gap 18 BUN 13 Creatinine 0.5 L Est GFR ( Amer) > 60 Est GFR (Non-Af Amer) > 60 Random Glucose 105 D Calcium 7.9 L Total Bilirubin 0.3 AST 36 ALT 8 L D Alkaline Phosphatase 67 Total Protein 6.4 Albumin 3.8 Globulin 2.6 Albumin/Globulin Ratio 1.4 Arterial Blood Potassium Urine Color Yellow Urine Clarity Clear Urine pH 6.0 Ur Specific [place] 1.008 Urine Protein 1+ H Urine Glucose (UA) Normal Urine Ketones Trace Urine Blood Negative Urine Nitrate Negative Urine Bilirubin Negative Urine Urobilinogen Normal Ur Leukocyte Esterase Neg Urine WBC (Auto) 2 Urine RBC (Auto) 1 Hyaline Casts 3-5 H Urine Opiates Screen Urine Methadone Screen Ur Barbiturates Screen Ur Phencyclidine Scrn Ur Amphetamines Screen U Benzodiazepines Scrn U Oth Cocaine Metabols U Cannabinoids Screen Alcohol, Quantitative 582 H 08/13/18 08/13/18 13:35 13:41 WBC RBC Hgb Hct MCV MCH MCHC RDW Plt Count MPV Neut % (Auto) Lymph % (Auto) [place] % (Auto) Eos % (Auto) Baso % (Auto) Neut # (Auto) Lymph # (Auto) [place] # (Auto) Eos # (Auto) Baso # (Auto) Puncture Site Rrad pCO2 33 L pO2 272 H HCO3 24.7 ABG pH 7.45 ABG Total CO2 23.9 ABG O2 Saturation 99.9 H ABG Base Excess -0.4 Nathaniel Test Pos ABG Potassium 2.6 L A-a O2 Difference 400.0 Respiratory Index 1.5 Glucose 114 H Lactate 4.1 H* Vent Mode Prvc Mechanical Rate 16 FiO2 100.0 Tidal Volume 500 PEEP 5 Crit Value Called To Dr tran Crit Value Called By Johann childress consumer sales representative Crit Value Read Back Y Blood Gas Notified Time 1347 Sodium 144.0 Potassium Chloride 107.0 Carbon Dioxide Anion Gap BUN Creatinine Est GFR ( Amer) Est GFR (Non-Af Amer) Random Glucose Calcium Total Bilirubin AST ALT Alkaline Phosphatase Total Protein Albumin Globulin Albumin/Globulin Ratio Arterial Blood Potassium 2.6 L Urine Color Urine Clarity Urine pH Ur Specific [place] Urine Protein Urine Glucose (UA) Urine Ketones Urine Blood Urine Nitrate Urine Bilirubin Urine Urobilinogen Ur Leukocyte Esterase Urine WBC (Auto) Urine RBC (Auto) Hyaline Casts Urine Opiates Screen Positive H Urine Methadone Screen Negative Ur Barbiturates Screen Negative Ur Phencyclidine Scrn Negative Ur Amphetamines Screen Negative U Benzodiazepines Scrn Negative U Oth Cocaine Metabols Negative U Cannabinoids Screen Negative Alcohol, Quantitative Assessment & Plan - Assessment and Plan (Free Text) Assessment: Pt is a 43 y/o male with hx of polysubstance abuse (Cocaine, Benzos, Opiates, and ETOH), Hx of Pancreatitis, DMII (on insulin), Gastritis, Anxiety, PEG tube (due to esophageal strictures), frequent ER visits for intoxication, hx of Alcoholic seizures brought to ED by EMS after being found unresponsive in [facility]. Pt was intubated in ED for protection of airways given his mental status. Neuro: - Sedated, RASS (-4) - Propofol ggt - Versed 2mg q4 prn - Banana Bag at 100cc/hr - ETOH serum 582 - (+) Opiates in Utox - CIWA 0 Monitor for signs of ETOH withdrawal Cardio - Hemodynamically stable - BP borderline low in 90's systolic - Monitor BP; Maintain MAP>65 Pulm: - Intubated on MV, FIO2 40 - Mild Respiratory Alkalosis on ABG - ABG and Cxray in am - Keep HOB elevated GI - Glucerna via PEG tube at 20cc/hr - Liver Enzymes normal Renal - BUN/ Crea wnl - Lactic Acid 4, Hyaline cast in urine, likely dehydration. S/P 3L NS in ED. Will keep maintainence fluids to hydrate. F/U Repeat Lactate. - Maintain Urine Output >0.5cc/kg/hr Endocrine - Hx of uncontrolled DM, Last Hga1c 10.3 - ISS, Hypoglycemic protocol, and Accuchecks q6H Heme - H/H stable - Platelets 541 (Chronic thrombocytosis) ID - Afebrile - Leukocytosis 11.7, mild - Any signs of infection, will get cultures PPX -DVT: Lovenox 40SC daily -GI: Not indicated, will start if intubated >[address]iscuss[address] case [address] Dr[address] Danielito Molina, PGY2 <Luis Trinidad - Last Filed: 08/13/18 19:20> Meds - Medications Medications: Current Medications Dextrose (Dextrose 50% Inj) 0 ml IV STAT PRN; Protocol PRN Reason: Hypoglycemia Protocol Dextrose (Glutose 15) 0 gm PO ONCE PRN; Protocol PRN Reason: Hypoglycemia Protocol Enoxaparin Sodium (Lovenox) 40 mg SC DAILY LUCILA Glucagon (Glucagen Diagnostic Kit) 0 mg IM STAT PRN; Protocol PRN Reason: Hypoglycemia Protocol Propofol (Diprivan) 1,000 mg in 100 mls @ 1.497 mls/hr IV .Q24H PRN; Protocol PRN Reason: TITRATE PER MD ORDER Last Admin: 08/13/18 13:15 Dose: 1.497 mls/hr Multivitamins/Vitamin C 10 ml/Thiamine HCl 100 mg/ Folic Acid 1 mg/ Sodium Chloride 1,011.2 mls @ 100 mls/hr IV .Q10H7M ONE Stop: 08/14/18 03:48 Dextrose (Dextrose 5% In Water 1000 Ml) 1,000 mls @ 0 mls/hr IV .Q0M PRN; Protocol PRN Reason: Hypoglycemia Protocol Insulin Aspart (Novolog) 0 unit SC ACHS LUCILA; Protocol Midazolam HCl (Versed Inj) 2 mg IVP Q4H PRN PRN Reason: Agitation Ondansetron HCl (Zofran Inj) 4 mg IVP Q6H PRN PRN Reason: Nausea/Vomiting Results - Vital Signs Recent Vital Signs: Last Vital Signs Temp 97.5 F L 08/13/18 17:43 Pulse 90 08/13/18 18:00 Resp 16 08/13/18 18:00 BP 93/60 L 08/13/18 16:39 Pulse Ox 100 08/13/18 18:00 - Labs Result Diagrams: 08/13/18 13:35 08/13/18 13:35 Labs: Laboratory Results - last 24 hr 08/13/18 08/13/18 08/13/18 13:35 13:35 13:35 WBC 11.7 H RBC 4.78 Hgb 13.0 Hct 39.5 MCV 82.5 MCH 27.1 MCHC 32.9 L RDW 18.9 H Plt Count 541 H D MPV 7.9 Neut % (Auto) 53.4 Lymph % (Auto) 38.6 [place] % (Auto) 6.2 Eos % (Auto) 0.9 Baso % (Auto) 0.9 Neut # (Auto) 6.3 Lymph # (Auto) 4.5 H [place] # (Auto) 0.7 Eos # (Auto) 0.1 Baso # (Auto) 0.1 Puncture Site pCO2 pO2 HCO3 ABG pH ABG Total CO2 ABG O2 Saturation ABG Base Excess Nathaniel Test ABG Potassium A-a O2 Difference Respiratory Index Glucose Lactate Vent Mode Mechanical Rate FiO2 Tidal Volume PEEP Crit Value Called To Crit Value Called By Crit Value Read Back Blood Gas Notified Time Sodium 142 Potassium 3.2 L Chloride 102 Carbon Dioxide 25 Anion Gap 18 BUN 13 Creatinine 0.5 L Est GFR ( Amer) > 60 Est GFR (Non-Af Amer) > 60 POC Glucose (mg/dL) Random Glucose 105 D Calcium 7.9 L Total Bilirubin 0.3 AST 36 ALT 8 L D Alkaline Phosphatase 67 Total Protein 6.4 Albumin 3.8 Globulin 2.6 Albumin/Globulin Ratio 1.4 Arterial Blood Potassium Urine Color Yellow Urine Clarity Clear Urine pH 6.0 Ur Specific [place] 1.008 Urine Protein 1+ H Urine Glucose (UA) Normal Urine Ketones Trace Urine Blood Negative Urine Nitrate Negative Urine Bilirubin Negative Urine Urobilinogen Normal Ur Leukocyte Esterase Neg Urine WBC (Auto) 2 Urine RBC (Auto) 1 Hyaline Casts 3-5 H Urine Opiates Screen Urine Methadone Screen Ur Barbiturates Screen Ur Phencyclidine Scrn Ur Amphetamines Screen U Benzodiazepines Scrn U Oth Cocaine Metabols U Cannabinoids Screen Alcohol, Quantitative 582 H 08/13/18 08/13/18 08/13/18 13:35 13:41 18:00 WBC RBC Hgb Hct MCV MCH MCHC RDW Plt Count MPV Neut % (Auto) Lymph % (Auto) [place] % (Auto) Eos % (Auto) Baso % (Auto) Neut # (Auto) Lymph # (Auto) [place] # (Auto) Eos # (Auto) Baso # (Auto) Puncture Site Rrad pCO2 33 L pO2 272 H HCO3 24.7 ABG pH 7.45 ABG Total CO2 23.9 ABG O2 Saturation 99.9 H ABG Base Excess -0.4 Nathaniel Test Pos ABG Potassium 2.6 L A-a O2 Difference 400.0 Respiratory Index 1.5 Glucose 114 H Lactate 4.1 H* Vent Mode Prvc Mechanical Rate 16 FiO2 100.0 Tidal Volume 500 PEEP 5 Crit Value Called To Dr tran Crit Value Called By Johann childress consumer sales representative Crit Value Read Back Y Blood Gas Notified Time 1347 Sodium 144.0 Potassium Chloride 107.0 Carbon Dioxide Anion Gap BUN Creatinine Est GFR ( Amer) Est GFR (Non-Af Amer) POC Glucose (mg/dL) 90 Random Glucose Calcium Total Bilirubin AST ALT Alkaline Phosphatase Total Protein Albumin Globulin Albumin/Globulin Ratio Arterial Blood Potassium 2.6 L Urine Color Urine Clarity Urine pH Ur Specific [place] Urine Protein Urine Glucose (UA) Urine Ketones Urine Blood Urine Nitrate Urine Bilirubin Urine Urobilinogen Ur Leukocyte Esterase Urine WBC (Auto) Urine RBC (Auto) Hyaline Casts Urine Opiates Screen Positive H Urine Methadone Screen Negative Ur Barbiturates Screen Negative Ur Phencyclidine Scrn Negative Ur Amphetamines Screen Negative U Benzodiazepines Scrn Negative U Oth Cocaine Metabols Negative U Cannabinoids Screen Negative Alcohol, Quantitative Attending/Attestation - Attestation I have personally seen and examined this patient.: Yes I have fully participated in the care of the patient.: Yes I have reviewed all pertinent clinical information: Yes Notes (Text): 08/13/18 19:18 I have seen and examined the patient. Medical records, lab studies, and imaging were reviewed by me and a management plan was formulated on multidisciplinary rounds with resident Dr. Molina. I agree with their documented assessment and plan. patient found unconscious at motel most likely secondary to alcohol intoxication with possible seizure. Sedated with propofol gtt, and versed prn. Hydration with banana bag. Follow up lacate level. Critical Care Time 35 minutes. Multi-disciplinary rounds were performed with house staff, nursing, speech therapy, respiratory therapy, pharmacy and nutrition with integrated input from the primary team/attending and other consulting services. The documented time is cumulative and includes review of patient data/exams/labs/chart review and examination of the patient on rounds and throughout the day; time is exclusive of any procedures or teaching time.
--- NOTE | 2018-08-13 19:58 | CP.PCM.HP ---
Past Patient History - Infectious Disease Hx of Infectious Diseases: None - Tetanus Immunizations Tetanus Immunization: Unknown - Past Medical History & Family History Past Medical History?: Yes - Past Social History Smoking Status: Heavy Smoker > 10 Cigarettes Daily - CARDIAC Hx Hypertension: No - PULMONARY Hx Tuberculosis: No Other/Comment: Currently smokes 2 ppd - NEUROLOGICAL Hx Seizures: No - HEENT Hx HEENT Problems: No - RENAL Hx Chronic Kidney Disease: No - ENDOCRINE/METABOLIC Hx Diabetes Mellitus Type 2: Yes - HEMATOLOGICAL/ONCOLOGICAL Hx Human Immunodeficiency Virus (HIV): No - INTEGUMENTARY Hx Dermatological Problems: No - MUSCULOSKELETAL/RHEUMATOLOGICAL Hx Falls: Yes (from hypoglycemia, feeling lightheaded) - GASTROINTESTINAL Hx Gastritis: Yes Hx Pancreatitis: Yes - GENITOURINARY/GYNECOLOGICAL Hx Sexually Transmitted Disorders: No - PSYCHIATRIC Hx Substance Use: Yes - SURGICAL HISTORY Hx Surgeries: No - ANESTHESIA Hx Anesthesia: Yes Meds Allergies/Adverse Reactions: Allergies Allergy/AdvReac Type Severity Reaction Status Date / Time No Known Allergies Allergy Verified 07/20/18 10:47 Physical Exam - Constitutional Appears: Well - Head Exam Head Exam: ATRAUMATIC, NORMAL INSPECTION, NORMOCEPHALIC - Eye Exam Eye Exam: EOMI, Normal appearance, PERRL Pupil Exam: NORMAL ACCOMODATION, PERRL - ENT Exam ENT Exam: Mucous Membranes Moist, Normal Exam - Neck Exam Neck exam: Positive for: Normal Inspection - Respiratory Exam Respiratory Exam: Decreased Breath Sounds - Cardiovascular Exam Cardiovascular Exam: REGULAR RHYTHM, +S1, +S2 - GI/Abdominal Exam GI & Abdominal Exam: Diminished Bowel Sounds, Soft - Rectal Exam Rectal Exam: Deferred - Neurological Exam Neurological exam: Oriented x3 Results - Vital Signs Recent Vital Signs: Last Vital Signs Temp 97.5 F L 08/13/18 17:43 Pulse 90 08/13/18 18:00 Resp 16 08/13/18 18:00 BP 93/60 L 08/13/18 16:39 Pulse Ox 100 08/13/18 18:00 - Labs Result Diagrams: 08/13/18 13:35 08/13/18 13:35 Labs: Laboratory Results - last 24 hr 08/13/18 08/13/18 08/13/18 13:35 13:35 13:35 WBC 11.7 H RBC 4.78 Hgb 13.0 Hct 39.5 MCV 82.5 MCH 27.1 MCHC 32.9 L RDW 18.9 H Plt Count 541 H D MPV 7.9 Neut % (Auto) 53.4 Lymph % (Auto) 38.6 [place] % (Auto) 6.2 Eos % (Auto) 0.9 Baso % (Auto) 0.9 Neut # (Auto) 6.3 Lymph # (Auto) 4.5 H [place] # (Auto) 0.7 Eos # (Auto) 0.1 Baso # (Auto) 0.1 Puncture Site pCO2 pO2 HCO3 ABG pH ABG Total CO2 ABG O2 Saturation ABG Base Excess Nathaniel Test ABG Potassium A-a O2 Difference Respiratory Index Glucose Lactate Vent Mode Mechanical Rate FiO2 Tidal Volume PEEP Crit Value Called To Crit Value Called By Crit Value Read Back Blood Gas Notified Time Sodium 142 Potassium 3.2 L Chloride 102 Carbon Dioxide 25 Anion Gap 18 BUN 13 Creatinine 0.5 L Est GFR ( Amer) > 60 Est GFR (Non-Af Amer) > 60 POC Glucose (mg/dL) Random Glucose 105 D Lactic Acid Calcium 7.9 L Total Bilirubin 0.3 AST 36 ALT 8 L D Alkaline Phosphatase 67 Ammonia Total Protein 6.4 Albumin 3.8 Globulin 2.6 Albumin/Globulin Ratio 1.4 Arterial Blood Potassium Urine Color Yellow Urine Clarity Clear Urine pH 6.0 Ur Specific [place] 1.008 Urine Protein 1+ H Urine Glucose (UA) Normal Urine Ketones Trace Urine Blood Negative Urine Nitrate Negative Urine Bilirubin Negative Urine Urobilinogen Normal Ur Leukocyte Esterase Neg Urine WBC (Auto) 2 Urine RBC (Auto) 1 Hyaline Casts 3-5 H Urine Opiates Screen Urine Methadone Screen Ur Barbiturates Screen Ur Phencyclidine Scrn Ur Amphetamines Screen U Benzodiazepines Scrn U Oth Cocaine Metabols U Cannabinoids Screen Alcohol, Quantitative 582 H 08/13/18 08/13/18 08/13/18 13:35 13:41 18:00 WBC RBC Hgb Hct MCV MCH MCHC RDW Plt Count MPV Neut % (Auto) Lymph % (Auto) [place] % (Auto) Eos % (Auto) Baso % (Auto) Neut # (Auto) Lymph # (Auto) [place] # (Auto) Eos # (Auto) Baso # (Auto) Puncture Site Rrad pCO2 33 L pO2 272 H HCO3 24.7 ABG pH 7.45 ABG Total CO2 23.9 ABG O2 Saturation 99.9 H ABG Base Excess -0.4 Nathaniel Test Pos ABG Potassium 2.6 L A-a O2 Difference 400.0 Respiratory Index 1.5 Glucose 114 H Lactate 4.1 H* Vent Mode Prvc Mechanical Rate 16 FiO2 100.0 Tidal Volume 500 PEEP 5 Crit Value Called To Dr tran Crit Value Called By Johann childress business librarian Crit Value Read Back Y Blood Gas Notified Time 1347 Sodium 144.0 Potassium Chloride 107.0 Carbon Dioxide Anion Gap BUN Creatinine Est GFR ( Amer) Est GFR (Non-Af Amer) POC Glucose (mg/dL) 90 Random Glucose Lactic Acid Calcium Total Bilirubin AST ALT Alkaline Phosphatase Ammonia Total Protein Albumin Globulin Albumin/Globulin Ratio Arterial Blood Potassium 2.6 L Urine Color Urine Clarity Urine pH Ur Specific [place] Urine Protein Urine Glucose (UA) Urine Ketones Urine Blood Urine Nitrate Urine Bilirubin Urine Urobilinogen Ur Leukocyte Esterase Urine WBC (Auto) Urine RBC (Auto) Hyaline Casts Urine Opiates Screen Positive H Urine Methadone Screen Negative Ur Barbiturates Screen Negative Ur Phencyclidine Scrn Negative Ur Amphetamines Screen Negative U Benzodiazepines Scrn Negative U Oth Cocaine Metabols Negative U Cannabinoids Screen Negative Alcohol, Quantitative 08/13/18 08/13/18 19:20 19:20 WBC RBC Hgb Hct MCV MCH MCHC RDW Plt Count MPV Neut % (Auto) Lymph % (Auto) [place] % (Auto) Eos % (Auto) Baso % (Auto) Neut # (Auto) Lymph # (Auto) [place] # (Auto) Eos # (Auto) Baso # (Auto) Puncture Site pCO2 pO2 HCO3 ABG pH ABG Total CO2 ABG O2 Saturation ABG Base Excess Nathaniel Test ABG Potassium A-a O2 Difference Respiratory Index Glucose Lactate Vent Mode Mechanical Rate FiO2 Tidal Volume PEEP Crit Value Called To Crit Value Called By Crit Value Read Back Blood Gas Notified Time Sodium Potassium Chloride Carbon Dioxide Anion Gap BUN Creatinine Est GFR ( Amer) Est GFR (Non-Af Amer) POC Glucose (mg/dL) Random Glucose Lactic Acid 2.4 H Calcium Total Bilirubin AST ALT Alkaline Phosphatase Ammonia 17 Total Protein Albumin Globulin Albumin/Globulin Ratio Arterial Blood Potassium Urine Color Urine Clarity Urine pH Ur Specific [place] Urine Protein Urine Glucose (UA) Urine Ketones Urine Blood Urine Nitrate Urine Bilirubin Urine Urobilinogen Ur Leukocyte Esterase Urine WBC (Auto) Urine RBC (Auto) Hyaline Casts Urine Opiates Screen Urine Methadone Screen Ur Barbiturates Screen Ur Phencyclidine Scrn Ur Amphetamines Screen U Benzodiazepines Scrn U Oth Cocaine Metabols U Cannabinoids Screen Alcohol, Quantitative
[2018-08-13] MEDS ORDERED: (Novolog) Insulin Aspart, Recombinant 100 u/ml 10 ml vial SC SCH (22:00)
[2018-08-13] MEDS: (Novolog) Insulin Aspart, Recombinant 100 u/ml 10 ml vial SC SCH (23:45)
[2018-08-14] MEDS: Midazolam 2 MG/2 ML VIAL IVP PRN ×2 (00:56→05:54)
[2018-08-14] MEDS: (Novolog) Insulin Aspart, Recombinant 100 u/ml 10 ml vial SC SCH (05:35)
[2018-08-14 06:13] LABS: BASO % 0.3 % (0.0-2.0); EOS % 0.1 % (0.0-4.0); HEMOGLOBIN 11.6 g/dL (12.0-18.0); LYMPH # 1.6 K/uL (1.0-4.3); LYMPH % 9.7 % (20.0-40.0); MEAN CELL VOLUME 81.9 fL (80.0-94.0); MEAN CORPUSCULAR HEMOGLOBIN 26.5 pg (27.0-31.0); MEAN CORPUSCULAR HGB CONC 32.3 g/dL (33.0-37.0); MEAN PLATELET VOLUME 7.7 fL (7.2-11.7); MONO # 0.7 K/uL (0.0-0.8); MONO % 4.3 % (0.0-10.0); NEUT # 14.2 K/uL (1.8-7.0); NEUT % 85.6 % (50.0-75.0); PLATELET COUNT 477 K/uL (130-400); RBC 4.37 Mil/uL (4.40-5.90); RED CELL DISTRIBUTION WIDTH 18.9 % (11.5-14.5); WHITE BLOOD COUNT 16.6 K/uL (4.8-10.8)
[2018-08-14 07:32] LABS: ALB/GLOB RATIO 1.3 (1.0-2.1); ALBUMIN 3.3 g/dL (3.5-5.0); ALT/SGPT 12 U/L (21-72); AST/SGOT 41 U/L (17-59); BLOOD UREA NITROGEN 15 mg/dL (9-20); CALCIUM 8.1 mg/dl (8.6-10.4); GFR NON-AFRICAN AMERICAN > 60
[2018-08-14 07:51] VITALS: BP 125/68
[2018-08-14] MEDS ORDERED: Potassium Chloride 20 mEq ER Tab PO STA ×2 (08:25→08:58)
[2018-08-14 08:26] LABS: ANISOCYTOSIS SLIGHT; BANDS 3 % (0-2); LYMPHOCYTE 10 % (20-40); MONOCYTE 4 % (0-10); NEUTROPHIL 83 % (50-75); PLATELET ESTIMATE SLIGHTLY INCREASED (NORMAL); TOTAL CELLS COUNTED 100
[2018-08-14] MEDS ORDERED: Dexmedetomidine Hydrochloride 200 MCG in Sodium Chloride 0.9% 48 ML IV PRN (08:30)
[2018-08-14 09:15] VITALS: RESP 21
--- NOTE | 2018-08-14 09:32 | PCM.PSYCH ---
Initial Psychiatric Evaluation - Initial Psychiatric Evaluation Type of Admission: Voluntary Legal Status: Capacity History of Present Illness and Precipitating Events: Pt is a 43 y/o male with hx of polysubstance abuse (Cocaine, Benzos, Opiates, and ETOH), Hx of Pancreatitis, DMII (on insulin), Gastritis, Anxiety, PEG tube (due to esophageal strictures), frequent ER visits for intoxication, hx of Alcoholic seizures brought to ED by EMS after being found unresponsive in [facility]. Pt was intubated in ED for protection of airways given his mental status. Current Medications: Active Medications Generic Name Dose Route Start Last Admin Trade Name Freq PRN Reason Stop Dose Admin Dextrose 0 ml 08/13/18 17:49 Dextrose 50% Inj IV STAT PRN Hypoglycemia Protocol Protocol Dextrose 0 gm 08/13/18 17:49 Glutose 15 PO ONCE PRN Hypoglycemia Protocol Protocol Enoxaparin Sodium 40 mg 08/14/18 10:00 08/14/18 09:20 Lovenox SC 40 mg DAILY LUCILA Administration Folic Acid 1 mg 08/14/18 10:00 Folic Acid PO DAILY LUCILA Glucagon 0 mg 08/13/18 17:49 Glucagen Diagnostic Kit IM STAT PRN Hypoglycemia Protocol Protocol Dextrose 1,000 mls @ 0 mls/hr 08/13/18 17:49 Dextrose 5% In Water 1000 Ml IV .Q0M PRN Hypoglycemia Protocol Protocol Per Protocol Dexmedetomidine HCl 200 mcg/ 50 mls @ 2.54 mls/hr 08/14/18 08:30 Sodium Chloride IV TITR PRN Agitation Protocol 0.2 MCG/KG/HR Insulin Aspart 0 unit 08/14/18 00:00 08/14/18 05:35 Novolog SC Not Given Q6H LUCILA Protocol Ondansetron HCl 4 mg 08/13/18 17:43 Zofran Inj IVP Q6H PRN Nausea/Vomiting Potassium Chloride 20 meq 08/14/18 13:00 K-Dur 20 Meq Er Tab PO 1300 LUCILA Thiamine HCl 100 mg 08/14/18 10:00 Vitamin B1 Tab PO DAILY LUCILA Past Psychiatric History - Past Psychiatric History Pertinent Medical Hx (Current Medical&Sleep Prob, Allergies): Allergies Allergy/AdvReac Type Severity Reaction Status Date / Time No Known Allergies Allergy Verified 07/20/18 10:47 Cyclobenzaprine [Flexeril] 5 mg PO TIDAC #30 tab 02/25/19 Folic Acid 1 mg PO DAILY #30 tab 06/30/18 Gabapentin [Neurontin] 300 mg PO BID #60 cap 06/30/18 Glimepiride [amaRYL] 4 mg PO BID #60 tab 06/30/18 Magnesium Oxide [Mag-Ox] 400 mg PO BID #60 tab 06/30/18 Multivitamins [Hexavitamin] 1 tab PO DAILY #30 tab 06/30/18 Thiamine [Vitamin B1 Tab] 100 mg PO DAILY #30 tab 06/30/18 metFORMIN [glucOPHAGE] 1,000 mg PO BID #60 tab 06/30/18 traZODone [Desyrel] 100 mg PO HS PRN #30 tab 06/30/18 Insulin Aspart, Recombinant [Novolog] 0 unit 07/20/18 LORazepam [Ativan] 1 mg PO Q8 PRN 07/20/18 Maalox 30 ml 30 ml PO Q6 PRN 07/20/18 Nicotine 14 mg/24 hr [Nicoderm CQ] 1 patch TD DAILY 07/20/18 Nut.tx.gluc.intoler,Lac-Fr,Soy [Glucerna Therapeutic Nutrition] 237 ml PO DAILY 07/20/18 Ondansetron [Ondansetron Odt] 4 mg PO Q6 PRN 07/20/18 Pantoprazole Sodium [Protonix] 1 tab DAILY 07/20/18 SITagliptin [Januvia] 25 mg PO DAILY 07/20/18 oxyCODONE/Acetaminophen [Percocet 5/325 mg Tab] 1 tab PO Q6 PRN 07/20/18
[2018-08-14] MEDS ORDERED: NUT TX GLUC INTOLER LAC FR SOY PO SCH (10:00)
[2018-08-14] MEDS ORDERED: Enoxaparin 40 mg Syringe SC SCH (10:00)
[2018-08-14] MEDS ORDERED: [UNRECOGNIZED DRUG - OTHER] PO SCH (10:00)
--- NOTE | 2018-08-14 12:35 | CARD ---
APPROVED REPORT Date of service: 08/13/2018 EKG Measurement Heart [id number] <Conclusion> Sinus tachycardia Low voltage QRS Borderline ECG
[2018-08-14] MEDS ORDERED: Potassium Chloride 20 mEq ER Tab PO SCH (13:00)
--- NOTE | 2018-08-14 13:04 | CP.CCUPN ---
CCU Subjective - Physician Review Subjective (Free Text): 08/14/18 13:34 PGY-1 Critical Care Progress Note for Dr. Morris Patient seen and examined at bedside. Patient self-extubated overnight. Patient attempting to leave AMA this morning, but informed of need to be evaluated for mental competency. Patient acting agitated, but calmed down when we were able to locate the whereabouts of his belongings at the motel at which he had been staying and request the staff there that his belongings be secured. CCU Objective - Vital Signs / Intake & Output Vital Signs (Last 4 hours): Vital Signs Pulse Pulse Ox 08/14/18 10:07 88 98 Intake and Output (Last 8hrs): Intake & Output 08/13/18 08/14/18 08/14/18 22:59 06:59 14:59 Intake Total 505.6 833.6 20 Output Total 0 150 0 Balance 505.6 683.6 20 Weight 112 lb Intake: IV 4 46 Intake, IV Amount 421.6 627.6 0 Left Wrist 400 600 0 Right Antecubital 21.6 27.6 0 Oral 0 Tube Feeding 80 160 20 TPN/PPN 0 Blood Product 0 Lipid 0 Albumin 0 Other 0 Output: Gastric Amount 0 Stomach 0 Urine 0 150 0 Condom 0 150 0 Stool 0 0 0 Urine/Stool Mix 0 Emesis 0 0 Other 0 Other: # Voids Condom 1 # Bowel Movements 0 0 - Physical Exam Head: Positive for: Atraumatic, Normocephalic Pupils: Positive for: PERRL Extroacular Muscles: Positive for: EOMI Conjunctiva: Positive for: Normal Mouth: Positive for: Moist Mucous Membranes Respiratory/Chest: Positive for: Clear to Auscultation, Good Air Exchange. Negative for: Accessory Muscle Use Cardiovascular: Positive for: Regular Rate and Rhythm, Normal S1, S2 Abdomen: Negative for: Tenderness, Distention Neurological: Positive for: GCS=15, CN II-XII Intact, Motor Func Grossly Intact Psychiatric: Positive for: Alert, Oriented x 3, Agitated - Medications Active Medications: Active Medications Generic Name Dose Route Start Last Admin Trade Name Freq PRN Reason Stop Dose Admin Dextrose 0 ml 08/13/18 17:49 Dextrose 50% Inj IV STAT PRN Hypoglycemia Protocol Protocol Dextrose 0 gm 08/13/18 17:49 Glutose 15 PO ONCE PRN Hypoglycemia Protocol Protocol Enoxaparin Sodium 40 mg 08/14/18 10:00 08/14/18 09:20 Lovenox SC 40 mg DAILY LUCILA Administration Folic Acid 1 mg 08/14/18 10:00 Folic Acid PO DAILY LUCILA Glucagon 0 mg 08/13/18 17:49 Glucagen Diagnostic Kit IM STAT PRN Hypoglycemia Protocol Protocol Dextrose 1,000 mls @ 0 mls/hr 08/13/18 17:49 Dextrose 5% In Water 1000 Ml IV .Q0M PRN Hypoglycemia Protocol Protocol Per Protocol Dexmedetomidine HCl 200 mcg/ 50 mls @ 2.54 mls/hr 08/14/18 08:30 Sodium Chloride IV TITR PRN Agitation Protocol 0.2 MCG/KG/HR Insulin Aspart 0 unit 08/14/18 00:00 08/14/18 05:35 Novolog SC Not Given Q6H [facility] Protocol Ondansetron HCl 4 mg 08/13/18 17:43 Zofran Inj IVP Q6H PRN Nausea/Vomiting Potassium Chloride 20 meq 08/14/18 13:00 K-Dur 20 Meq Er Tab PO 1300 LUCILA Thiamine HCl 100 mg 08/14/18 10:00 Vitamin B1 Tab PO DAILY LUCILA - Patient Studies Lab Studies: Lab Studies 08/14/18 08/14/18 08/14/18 Range/Units 11:41 07:03 06:02 WBC (4.8-10.8) K/uL RBC (4.40-5.90) Mil/uL Hgb (12.0-18.0) g/dL Hct (35.0-51.0) % MCV (80.0-94.0) fL MCH (27.0-31.0) pg MCHC (33.0-37.0) g/dL RDW (11.5-14.5) % Plt Count (130-400) K/uL MPV (7.2-11.7) fL Neut % (Auto) (50.0-75.0) % Lymph % (Auto) (20.0-40.0) % Crenshaw % (Auto) (0.0-10.0) % Eos % (Auto) (0.0-4.0) % Baso % (Auto) (0.0-2.0) % Neut # (Auto) (1.8-7.0) K/uL Lymph # (Auto) (1.0-4.3) K/uL C[place]shaw # (Auto) (0.0-0.8) K/uL Eos # (Auto) (0.0-0.7) K/uL Baso # (Auto) (0.0-0.2) K/uL Neutrophils % (Manual) (50-75) % Band Neutrophils % (0-2) % Lymphocytes % (Manual) (20-40) % Monocytes % (Manual) (0-10) % Platelet Estimate (NORMAL) Anisocytosis (manual) Puncture Site pCO2 (35-45) mm/Hg pO2 (80-100) mm/Hg HCO3 (21-28) mmol/L ABG pH (7.35-7.45) ABG Total CO2 (22-28) mmol/L ABG O2 Saturation (95-98) % ABG Base Excess (-2.0-3.0) mmol/L Nathaniel Test ABG Potassium (3.6-5.2) mmol/L A-a O2 Difference mm/Hg Respiratory Index Glucose (75-110) mg/dl Lactate (0.7-2.1) mmol/L Vent Mode Mechanical Rate FiO2 % Tidal Volume PEEP Crit Value Called To Crit Value Called By Crit Value Read Back Blood Gas Notified Time Sodium 142 (132-148) mmol/L Potassium 3.1 L (3.6-5.2) mmol/L Chloride 109 H (98-107) mmol/L Carbon Dioxide 22 (22-30) mmol/L Anion Gap 14 (10-20) BUN 15 (9-20) mg/dL Creatinine 0.6 L (0.8-1.5) mg/dL Est GFR ( Amer) > 60 Est GFR (Non-Af Amer) > 60 POC Glucose (mg/dL) 118 H (65-110) mg/dL Random Glucose 112 H (75-110) mg/dL Lactic Acid 1.9 (0.7-2.1) mmol/L Calcium 8.1 L (8.6-10.4) mg/dl Phosphorus 3.4 (2.5-4.5) mg/dL Magnesium 2.0 (1.6-2.3) mg/dL Total Bilirubin 0.3 (0.2-1.3) mg/dL AST 41 (17-59) U/L ALT 12 L D (21-72) U/L Alkaline Phosphatase 69 (38-126) U/L Ammonia (9-33) umol/L Total Protein 5.9 L (6.3-8.3) g/dL Albumin 3.3 L (3.5-5.0) g/dL Globulin 2.6 (2.2-3.9) gm/dL Albumin/Globulin Ratio 1.3 (1.0-2.1) Arterial Blood Potassium (3.6-5.2) mmol/L Urine Color (YELLOW) Urine Clarity (Clear) Urine pH (5.0-8.0) Ur Specific [place] (1.003-1.030) Urine Protein (NEGATIVE) mg/dL Urine Glucose (UA) (Normal) mg/dL Urine Ketones (NEGATIVE) mg/dL Urine Blood (NEGATIVE) Urine Nitrate (NEGATIVE) Urine Bilirubin (NEGATIVE) Urine Urobilinogen (0.2-1.0) mg/dL Ur Leukocyte Esterase (Negative) Mando/uL Urine WBC (Auto) (0-5) /hpf Urine RBC (Auto) (0-3) /hpf Hyaline Casts (0-2) /lpf Urine Opiates Screen (NEGATIVE) Urine Methadone Screen (NEGATIVE) Ur Barbiturates Screen (NEGATIVE) Ur Phencyclidine Scrn (NEGATIVE) Ur Amphetamines Screen (NEGATIVE) U Benzodiazepines Scrn (NEGATIVE) U Oth Cocaine Metabols (NEGATIVE) U Cannabinoids Screen (NEGATIVE) Alcohol, Quantitative (0-10) mg/dl 08/14/18 08/14/18 08/13/18 Range/Units 06:02 05:27 23:45 WBC 16.6 H (4.8-10.8) K/uL RBC 4.37 L (4.40-5.90) Mil/uL Hgb 11.6 L (12.0-18.0) g/dL Hct 35.8 (35.0-51.0) % MCV 81.9 (80.0-94.0) fL MCH 26.5 L (27.0-31.0) pg MCHC 32.3 L (33.0-37.0) g/dL RDW 18.9 H (11.5-14.5) % Plt Count 477 H (130-400) K/uL MPV 7.7 (7.2-11.7) fL Neut % (Auto) 85.6 H (50.0-75.0) % Lymph % (Auto) 9.7 L (20.0-40.0) % Crenshaw % (Auto) 4.3 (0.0-10.0) % Eos % (Auto) 0.1 (0.0-4.0) % Baso % (Auto) 0.3 (0.0-2.0) % Neut # (Auto) 14.2 H (1.8-7.0) K/uL Lymph # (Auto) 1.6 (1.0-4.3) K/uL [place]shaw # (Auto) 0.7 (0.0-0.8) K/uL Eos # (Auto) 0.0 (0.0-0.7) K/uL Baso # (Auto) 0.0 (0.0-0.2) K/uL Neutrophils % (Manual) 83 H (50-75) % Band Neutrophils % 3 H (0-2) % Lymphocytes % (Manual) 10 L (20-40) % Monocytes % (Manual) 4 (0-10) % Platelet Estimate Slightly increased H (NORMAL) Anisocytosis (manual) Slight Puncture Site pCO2 (35-45) mm/Hg pO2 (80-100) mm/Hg HCO3 (21-28) mmol/L ABG pH (7.35-7.45) ABG Total CO2 (22-28) mmol/L ABG O2 Saturation (95-98) % ABG Base Excess (-2.0-3.0) mmol/L Nathaniel Test ABG Potassium (3.6-5.2) mmol/L A-a O2 Difference mm/Hg Respiratory Index Glucose (75-110) mg/dl Lactate (0.7-2.1) mmol/L Vent Mode Mechanical Rate FiO2 % Tidal Volume PEEP Crit Value Called To Crit Value Called By Crit Value Read Back Blood Gas Notified Time Sodium (132-148) mmol/L Potassium (3.6-5.2) mmol/L Chloride (98-107) mmol/L Carbon Dioxide (22-30) mmol/L Anion Gap (10-20) BUN (9-20) mg/dL Creatinine (0.8-1.5) mg/dL Est GFR ( Amer) Est GFR (Non-Af Amer) POC Glucose (mg/dL) 118 H 105 (65-110) mg/dL Random Glucose (75-110) mg/dL Lactic Acid (0.7-2.1) mmol/L Calcium (8.6-10.4) mg/dl Phosphorus (2.5-4.5) mg/dL Magnesium (1.6-2.3) mg/dL Total Bilirubin (0.2-1.3) mg/dL AST (17-59) U/L ALT (21-72) U/L Alkaline Phosphatase (38-126) U/L Ammonia (9-33) umol/L Total Protein (6.3-8.3) g/dL Albumin (3.5-5.0) g/dL Globulin (2.2-3.9) gm/dL Albumin/Globulin Ratio (1.0-2.1) Arterial Blood Potassium (3.6-5.2) mmol/L Urine Color (YELLOW) Urine Clarity (Clear) Urine pH (5.0-8.0) Ur Specific [place] (1.003-1.030) Urine Protein (NEGATIVE) mg/dL Urine Glucose (UA) (Normal) mg/dL Urine Ketones (NEGATIVE) mg/dL Urine Blood (NEGATIVE) Urine Nitrate (NEGATIVE) Urine Bilirubin (NEGATIVE) Urine Urobilinogen (0.2-1.0) mg/dL Ur Leukocyte Esterase (Negative) Mando/uL Urine WBC (Auto) (0-5) /hpf Urine RBC (Auto) (0-3) /hpf Hyaline Casts (0-2) /lpf Urine Opiates Screen (NEGATIVE) Urine Methadone Screen (NEGATIVE) Ur Barbiturates Screen (NEGATIVE) Ur Phencyclidine Scrn (NEGATIVE) Ur Amphetamines Screen (NEGATIVE) U Benzodiazepines Scrn (NEGATIVE) U Oth Cocaine Metabols (NEGATIVE) U Cannabinoids Screen (NEGATIVE) Alcohol, Quantitative (0-10) mg/dl 08/13/18 08/13/18 08/13/18 Range/Units 19:20 19:20 18:00 WBC (4.8-10.8) K/uL RBC (4.40-5.90) Mil/uL Hgb (12.0-18.0) g/dL Hct (35.0-51.0) % MCV (80.0-94.0) fL MCH (27.0-31.0) pg MCHC (33.0-37.0) g/dL RDW (11.5-14.5) % Plt Count (130-400) K/uL MPV (7.2-11.7) fL Neut % (Auto) (50.0-75.0) % Lymph % (Auto) (20.0-40.0) % C[place]shaw % (Auto) (0.0-10.0) % Eos % (Auto) (0.0-4.0) % Baso % (Auto) (0.0-2.0) % Neut # (Auto) (1.8-7.0) K/uL Lymph # (Auto) (1.0-4.3) K/uL [place] # (Auto) (0.0-0.8) K/uL Eos # (Auto) (0.0-0.7) K/uL Baso # (Auto) (0.0-0.2) K/uL Neutrophils % (Manual) (50-75) % Band Neutrophils % (0-2) % Lymphocytes % (Manual) (20-40) % Monocytes % (Manual) (0-10) % Platelet Estimate (NORMAL) Anisocytosis (manual) Puncture Site pCO2 (35-45) mm/Hg pO2 (80-100) mm/Hg HCO3 (21-28) mmol/L ABG pH (7.35-7.45) ABG Total CO2 (22-28) mmol/L ABG O2 Saturation (95-98) % ABG Base Excess (-2.0-3.0) mmol/L Nathaniel Test ABG Potassium (3.6-5.2) mmol/L A-a O2 Difference mm/Hg Respiratory Index Glucose (75-110) mg/dl Lactate (0.7-2.1) mmol/L Vent Mode Mechanical Rate FiO2 % Tidal Volume PEEP Crit Value Called To Crit Value Called By Crit Value Read Back Blood Gas Notified Time Sodium (132-148) mmol/L Potassium (3.6-5.2) mmol/L Chloride (98-107) mmol/L Carbon Dioxide (22-30) mmol/L Anion Gap (10-20) BUN (9-20) mg/dL Creatinine (0.8-1.5) mg/dL Est GFR ( Amer) Est GFR (Non-Af Amer) POC Glucose (mg/dL) 90 (65-110) mg/dL Random Glucose (75-110) mg/dL Lactic Acid 2.4 H (0.7-2.1) mmol/L Calcium (8.6-10.4) mg/dl Phosphorus (2.5-4.5) mg/dL Magnesium (1.6-2.3) mg/dL Total Bilirubin (0.2-1.3) mg/dL AST (17-59) U/L ALT (21-72) U/L Alkaline Phosphatase (38-126) U/L Ammonia 17 (9-33) umol/L Total Protein (6.3-8.3) g/dL Albumin (3.5-5.0) g/dL Globulin (2.2-3.9) gm/dL Albumin/Globulin Ratio (1.0-2.1) Arterial Blood Potassium (3.6-5.2) mmol/L Urine Color (YELLOW) Urine Clarity (Clear) Urine pH (5.0-8.0) Ur Specific [place] (1.003-1.030) Urine Protein (NEGATIVE) mg/dL Urine Glucose (UA) (Normal) mg/dL Urine Ketones (NEGATIVE) mg/dL Urine Blood (NEGATIVE) Urine Nitrate (NEGATIVE) Urine Bilirubin (NEGATIVE) Urine Urobilinogen (0.2-1.0) mg/dL Ur Leukocyte Esterase (Negative) Mando/uL Urine WBC (Auto) (0-5) /hpf Urine RBC (Auto) (0-3) /hpf Hyaline Casts (0-2) /lpf Urine Opiates Screen (NEGATIVE) Urine Methadone Screen (NEGATIVE) Ur Barbiturates Screen (NEGATIVE) Ur Phencyclidine Scrn (NEGATIVE) Ur Amphetamines Screen (NEGATIVE) U Benzodiazepines Scrn (NEGATIVE) U Oth Cocaine Metabols (NEGATIVE) U Cannabinoids Screen (NEGATIVE) Alcohol, Quantitative (0-10) mg/dl 08/13/18 08/13/18 08/13/18 Range/Units 13:41 13:35 13:35 WBC (4.8-10.8) K/uL RBC (4.40-5.90) Mil/uL Hgb (12.0-18.0) g/dL Hct (35.0-51.0) % MCV (80.0-94.0) fL MCH (27.0-31.0) pg MCHC (33.0-37.0) g/dL RDW (11.5-14.5) % Plt Count (130-400) K/uL MPV (7.2-11.7) fL Neut % (Auto) (50.0-75.0) % Lymph % (Auto) (20.0-40.0) % C[place]shaw % (Auto) (0.0-10.0) % Eos % (Auto) (0.0-4.0) % Baso % (Auto) (0.0-2.0) % Neut # (Auto) (1.8-7.0) K/uL Lymph # (Auto) (1.0-4.3) K/uL C[place]shaw # (Auto) (0.0-0.8) K/uL Eos # (Auto) (0.0-0.7) K/uL Baso # (Auto) (0.0-0.2) K/uL Neutrophils % (Manual) (50-75) % Band Neutrophils % (0-2) % Lymphocytes % (Manual) (20-40) % Monocytes % (Manual) (0-10) % Platelet Estimate (NORMAL) Anisocytosis (manual) Puncture Site Rrad pCO2 33 L (35-45) mm/Hg pO2 272 H (80-100) mm/Hg HCO3 24.7 (21-28) mmol/L ABG pH 7.45 (7.35-7.45) ABG Total CO2 23.9 (22-28) mmol/L ABG O2 Saturation 99.9 H (95-98) % ABG Base Excess -0.4 (-2.0-3.0) mmol/L Nathaniel Test Pos ABG Potassium 2.6 L (3.6-5.2) mmol/L A-a O2 Difference 400.0 mm/Hg Respiratory Index 1.5 Glucose 114 H (75-110) mg/dl Lactate 4.1 H* (0.7-2.1) mmol/L Vent Mode Prvc Mechanical Rate 16 FiO2 100.0 % Tidal Volume 500 PEEP 5 Crit Value Called To Dr tran Crit Value Called By Johann childress [employer] food services manager Crit Value Read Back Y Blood Gas Notified Time 1347 Sodium 144.0 142 (132-148) mmol/L Potassium 3.2 L (3.6-5.2) mmol/L Chloride 107.0 102 (98-107) mmol/L Carbon Dioxide 25 (22-30) mmol/L Anion Gap 18 (10-20) BUN 13 (9-20) mg/dL Creatinine 0.5 L (0.8-1.5) mg/dL Est GFR ( Amer) > 60 Est GFR (Non-Af Amer) > 60 POC Glucose (mg/dL) (65-110) mg/dL Random Glucose 105 D (75-110) mg/dL Lactic Acid (0.7-2.1) mmol/L Calcium 7.9 L (8.6-10.4) mg/dl Phosphorus (2.5-4.5) mg/dL Magnesium (1.6-2.3) mg/dL Total Bilirubin 0.3 (0.2-1.3) mg/dL AST 36 (17-59) U/L ALT 8 L D (21-72) U/L Alkaline Phosphatase 67 (38-126) U/L Ammonia (9-33) umol/L Total Protein 6.4 (6.3-8.3) g/dL Albumin 3.8 (3.5-5.0) g/dL Globulin 2.6 (2.2-3.9) gm/dL Albumin/Globulin Ratio 1.4 (1.0-2.1) Arterial Blood Potassium 2.6 L (3.6-5.2) mmol/L Urine Color (YELLOW) Urine Clarity (Clear) Urine pH (5.0-8.0) Ur Specific [place] (1.003-1.030) Urine Protein (NEGATIVE) mg/dL Urine Glucose (UA) (Normal) mg/dL Urine Ketones (NEGATIVE) mg/dL Urine Blood (NEGATIVE) Urine Nitrate (NEGATIVE) Urine Bilirubin (NEGATIVE) Urine Urobilinogen (0.2-1.0) mg/dL Ur Leukocyte Esterase (Negative) Mando/uL Urine WBC (Auto) (0-5) /hpf Urine RBC (Auto) (0-3) /hpf Hyaline Casts (0-2) /lpf Urine Opiates Screen Positive H (NEGATIVE) Urine Methadone Screen Negative (NEGATIVE) Ur Barbiturates Screen Negative (NEGATIVE) Ur Phencyclidine Scrn Negative (NEGATIVE) Ur Amphetamines Screen Negative (NEGATIVE) U Benzodiazepines Scrn Negative (NEGATIVE) U Oth Cocaine Metabols Negative (NEGATIVE) U Cannabinoids Screen Negative (NEGATIVE) Alcohol, Quantitative 582 H (0-10) mg/dl 08/13/18 08/13/18 08/13/18 Range/Units 13:35 13:35 12:42 WBC 11.7 H (4.8-10.8) K/uL RBC 4.78 (4.40-5.90) Mil/uL Hgb 13.0 (12.0-18.0) g/dL Hct 39.5 (35.0-51.0) % MCV 82.5 (80.0-94.0) fL MCH 27.1 (27.0-31.0) pg MCHC 32.9 L (33.0-37.0) g/dL RDW 18.9 H (11.5-14.5) % Plt Count 541 H D (130-400) K/uL MPV 7.9 (7.2-11.7) fL Neut % (Auto) 53.4 (50.0-75.0) % Lymph % (Auto) 38.6 (20.0-40.0) % [place] % (Auto) 6.2 (0.0-10.0) % Eos % (Auto) 0.9 (0.0-4.0) % Baso % (Auto) 0.9 (0.0-2.0) % Neut # (Auto) 6.3 (1.8-7.0) K/uL Lymph # (Auto) 4.5 H (1.0-4.3) K/uL [place] # (Auto) 0.7 (0.0-0.8) K/uL Eos # (Auto) 0.1 (0.0-0.7) K/uL Baso # (Auto) 0.1 (0.0-0.2) K/uL Neutrophils % (Manual) (50-75) % Band Neutrophils % (0-2) % Lymphocytes % (Manual) (20-40) % Monocytes % (Manual) (0-10) % Platelet Estimate (NORMAL) Anisocytosis (manual) Puncture Site pCO2 (35-45) mm/Hg pO2 (80-100) mm/Hg HCO3 (21-28) mmol/L ABG pH (7.35-7.45) ABG Total CO2 (22-28) mmol/L ABG O2 Saturation (95-98) % ABG Base Excess (-2.0-3.0) mmol/L Nathaniel Test ABG Potassium (3.6-5.2) mmol/L A-a O2 Difference mm/Hg Respiratory Index Glucose (75-110) mg/dl Lactate (0.7-2.1) mmol/L Vent Mode Mechanical Rate FiO2 % Tidal Volume PEEP Crit Value Called To Crit Value Called By Crit Value Read Back Blood Gas Notified Time Sodium (132-148) mmol/L Potassium (3.6-5.2) mmol/L Chloride (98-107) mmol/L Carbon Dioxide (22-30) mmol/L Anion Gap (10-20) BUN (9-20) mg/dL Creatinine (0.8-1.5) mg/dL Est GFR ( Amer) Est GFR (Non-Af Amer) POC Glucose (mg/dL) 114 H (65-110) mg/dL Random Glucose (75-110) mg/dL Lactic Acid (0.7-2.1) mmol/L Calcium (8.6-10.4) mg/dl Phosphorus (2.5-4.5) mg/dL Magnesium (1.6-2.3) mg/dL Total Bilirubin (0.2-1.3) mg/dL AST (17-59) U/L ALT (21-72) U/L Alkaline Phosphatase (38-126) U/L Ammonia (9-33) umol/L Total Protein (6.3-8.3) g/dL Albumin (3.5-5.0) g/dL Globulin (2.2-3.9) gm/dL Albumin/Globulin Ratio (1.0-2.1) Arterial Blood Potassium (3.6-5.2) mmol/L Urine Color Yellow (YELLOW) Urine Clarity Clear (Clear) Urine pH 6.0 (5.0-8.0) Ur Specific [place] 1.008 (1.003-1.030) Urine Protein 1+ H (NEGATIVE) mg/dL Urine Glucose (UA) Normal (Normal) mg/dL Urine Ketones Trace (NEGATIVE) mg/dL Urine Blood Negative (NEGATIVE) Urine Nitrate Negative (NEGATIVE) Urine Bilirubin Negative (NEGATIVE) Urine Urobilinogen Normal (0.2-1.0) mg/dL Ur Leukocyte Esterase Neg (Negative) Mando/uL Urine WBC (Auto) 2 (0-5) /hpf Urine RBC (Auto) 1 (0-3) /hpf Hyaline Casts 3-5 H (0-2) /lpf Urine Opiates Screen (NEGATIVE) Urine Methadone Screen (NEGATIVE) Ur Barbiturates Screen (NEGATIVE) Ur Phencyclidine Scrn (NEGATIVE) Ur Amphetamines Screen (NEGATIVE) U Benzodiazepines Scrn (NEGATIVE) U Oth Cocaine Metabols (NEGATIVE) U Cannabinoids Screen (NEGATIVE) Alcohol, Quantitative (0-10) mg/dl Laboratory Results - last 24 hr 08/13/18 08/13/18 08/13/18 12:42 13:35 13:35 WBC 11.7 H RBC 4.78 Hgb 13.0 Hct 39.5 MCV 82.5 MCH 27.1 MCHC 32.9 L RDW 18.9 H Plt Count 541 H D MPV 7.9 Neut % (Auto) 53.4 Lymph % (Auto) 38.6 C[place]shaw % (Auto) 6.2 Eos % (Auto) 0.9 Baso % (Auto) 0.9 Neut # (Auto) 6.3 Lymph # (Auto) 4.5 H [place] # (Auto) 0.7 Eos # (Auto) 0.1 Baso # (Auto) 0.1 Neutrophils % (Manual) Band Neutrophils % Lymphocytes % (Manual) Monocytes % (Manual) Platelet Estimate Anisocytosis (manual) Puncture Site pCO2 pO2 HCO3 ABG pH ABG Total CO2 ABG O2 Saturation ABG Base Excess Nathaniel Test ABG Potassium A-a O2 Difference Respiratory Index Glucose Lactate Vent Mode Mechanical Rate FiO2 Tidal Volume PEEP Crit Value Called To Crit Value Called By Crit Value Read Back Blood Gas Notified Time Sodium Potassium Chloride Carbon Dioxide Anion Gap BUN Creatinine Est GFR ( Amer) Est GFR (Non-Af Amer) POC Glucose (mg/dL) 114 H Random Glucose Lactic Acid Calcium Phosphorus Magnesium Total Bilirubin AST ALT Alkaline Phosphatase Ammonia Total Protein Albumin Globulin Albumin/Globulin Ratio Arterial Blood Potassium Urine Color Yellow Urine Clarity Clear Urine pH 6.0 Ur Specific [place] 1.008 Urine Protein 1+ H Urine Glucose (UA) Normal Urine Ketones Trace Urine Blood Negative Urine Nitrate Negative Urine Bilirubin Negative Urine Urobilinogen Normal Ur Leukocyte Esterase Neg Urine WBC (Auto) 2 Urine RBC (Auto) 1 Hyaline Casts 3-5 H Urine Opiates Screen Urine Methadone Screen Ur Barbiturates Screen Ur Phencyclidine Scrn Ur Amphetamines Screen U Benzodiazepines Scrn U Oth Cocaine Metabols U Cannabinoids Screen Alcohol, Quantitative 08/13/18 08/13/18 08/13/18 13:35 13:35 13:41 WBC RBC Hgb Hct MCV MCH MCHC RDW Plt Count MPV Neut % (Auto) Lymph % (Auto) [place] % (Auto) Eos % (Auto) Baso % (Auto) Neut # (Auto) Lymph # (Auto) [place] # (Auto) Eos # (Auto) Baso # (Auto) Neutrophils % (Manual) Band Neutrophils % Lymphocytes % (Manual) Monocytes % (Manual) Platelet Estimate Anisocytosis (manual) Puncture Site Rrad pCO2 33 L pO2 272 H HCO3 24.7 ABG pH 7.45 ABG Total CO2 23.9 ABG O2 Saturation 99.9 H ABG Base Excess -0.4 Nathaniel Test Pos ABG Potassium 2.6 L A-a O2 Difference 400.0 Respiratory Index 1.5 Glucose 114 H Lactate 4.1 H* Vent Mode Prvc Mechanical Rate 16 FiO2 100.0 Tidal Volume 500 PEEP 5 Crit Value Called To Dr tran Crit Value Called By Johann childress [employer] food services manager Crit Value Read Back Y Blood Gas Notified Time 1347 Sodium 142 144.0 Potassium 3.2 L Chloride 102 107.0 Carbon Dioxide 25 Anion Gap 18 BUN 13 Creatinine 0.5 L Est GFR ( Amer) > 60 Est GFR (Non-Af Amer) > 60 POC Glucose (mg/dL) Random Glucose 105 D Lactic Acid Calcium 7.9 L Phosphorus Magnesium Total Bilirubin 0.3 AST 36 ALT 8 L D Alkaline Phosphatase 67 Ammonia Total Protein 6.4 Albumin 3.8 Globulin 2.6 Albumin/Globulin Ratio 1.4 Arterial Blood Potassium 2.6 L Urine Color Urine Clarity Urine pH Ur Specific [place] Urine Protein Urine Glucose (UA) Urine Ketones Urine Blood Urine Nitrate Urine Bilirubin Urine Urobilinogen Ur Leukocyte Esterase Urine WBC (Auto) Urine RBC (Auto) Hyaline Casts Urine Opiates Screen Positive H Urine Methadone Screen Negative Ur Barbiturates Screen Negative Ur Phencyclidine Scrn Negative Ur Amphetamines Screen Negative U Benzodiazepines Scrn Negative U Oth Cocaine Metabols Negative U Cannabinoids Screen Negative Alcohol, Quantitative 582 H 08/13/18 08/13/18 08/13/18 18:00 19:20 19:20 WBC RBC Hgb Hct MCV MCH MCHC RDW Plt Count MPV Neut % (Auto) Lymph % (Auto) [place] % (Auto) Eos % (Auto) Baso % (Auto) Neut # (Auto) Lymph # (Auto) [place] # (Auto) Eos # (Auto) Baso # (Auto) Neutrophils % (Manual) Band Neutrophils % Lymphocytes % (Manual) Monocytes % (Manual) Platelet Estimate Anisocytosis (manual) Puncture Site pCO2 pO2 HCO3 ABG pH ABG Total CO2 ABG O2 Saturation ABG Base Excess Nathaniel Test ABG Potassium A-a O2 Difference Respiratory Index Glucose Lactate Vent Mode Mechanical Rate FiO2 Tidal Volume PEEP Crit Value Called To Crit Value Called By Crit Value Read Back Blood Gas Notified Time Sodium Potassium Chloride Carbon Dioxide Anion Gap BUN Creatinine Est GFR ( Amer) Est GFR (Non-Af Amer) POC Glucose (mg/dL) 90 Random Glucose Lactic Acid 2.4 H Calcium Phosphorus Magnesium Total Bilirubin AST ALT Alkaline Phosphatase Ammonia 17 Total Protein Albumin Globulin Albumin/Globulin Ratio Arterial Blood Potassium Urine Color Urine Clarity Urine pH Ur Specific [place] Urine Protein Urine Glucose (UA) Urine Ketones Urine Blood Urine Nitrate Urine Bilirubin Urine Urobilinogen Ur Leukocyte Esterase Urine WBC (Auto) Urine RBC (Auto) Hyaline Casts Urine Opiates Screen Urine Methadone Screen Ur Barbiturates Screen Ur Phencyclidine Scrn Ur Amphetamines Screen U Benzodiazepines Scrn U Oth Cocaine Metabols U Cannabinoids Screen Alcohol, Quantitative 08/13/18 08/14/18 08/14/18 23:45 05:27 06:02 WBC 16.6 H RBC 4.37 L Hgb 11.6 L Hct 35.8 MCV 81.9 MCH 26.5 L MCHC 32.3 L RDW 18.9 H Plt Count 477 H MPV 7.7 Neut % (Auto) 85.6 H Lymph % (Auto) 9.7 L [place] % (Auto) 4.3 Eos % (Auto) 0.1 Baso % (Auto) 0.3 Neut # (Auto) 14.2 H Lymph # (Auto) 1.6 [place] # (Auto) 0.7 Eos # (Auto) 0.0 Baso # (Auto) 0.0 Neutrophils % (Manual) 83 H Band Neutrophils % 3 H Lymphocytes % (Manual) 10 L Monocytes % (Manual) 4 Platelet Estimate Slightly increased H Anisocytosis (manual) Slight Puncture Site pCO2 pO2 HCO3 ABG pH ABG Total CO2 ABG O2 Saturation ABG Base Excess Nathaniel Test ABG Potassium A-a O2 Difference Respiratory Index Glucose Lactate Vent Mode Mechanical Rate FiO2 Tidal Volume PEEP Crit Value Called To Crit Value Called By Crit Value Read Back Blood Gas Notified Time Sodium Potassium Chloride Carbon Dioxide Anion Gap BUN Creatinine Est GFR ( Amer) Est GFR (Non-Af Amer) POC Glucose (mg/dL) 105 118 H Random Glucose Lactic Acid Calcium Phosphorus Magnesium Total Bilirubin AST ALT Alkaline Phosphatase Ammonia Total Protein Albumin Globulin Albumin/Globulin Ratio Arterial Blood Potassium Urine Color Urine Clarity Urine pH Ur Specific [place] Urine Protein Urine Glucose (UA) Urine Ketones Urine Blood Urine Nitrate Urine Bilirubin Urine Urobilinogen Ur Leukocyte Esterase Urine WBC (Auto) Urine RBC (Auto) Hyaline Casts Urine Opiates Screen Urine Methadone Screen Ur Barbiturates Screen Ur Phencyclidine Scrn Ur Amphetamines Screen U Benzodiazepines Scrn U Oth Cocaine Metabols U Cannabinoids Screen Alcohol, Quantitative 08/14/18 08/14/18 08/14/18 06:02 07:03 11:41 WBC RBC Hgb Hct MCV MCH MCHC RDW Plt Count MPV Neut % (Auto) Lymph % (Auto) [place] % (Auto) Eos % (Auto) Baso % (Auto) Neut # (Auto) Lymph # (Auto) [place] # (Auto) Eos # (Auto) Baso # (Auto) Neutrophils % (Manual) Band Neutrophils % Lymphocytes % (Manual) Monocytes % (Manual) Platelet Estimate Anisocytosis (manual) Puncture Site pCO2 pO2 HCO3 ABG pH ABG Total CO2 ABG O2 Saturation ABG Base Excess Nathaniel Test ABG Potassium A-a O2 Difference Respiratory Index Glucose Lactate Vent Mode Mechanical Rate FiO2 Tidal Volume PEEP Crit Value Called To Crit Value Called By Crit Value Read Back Blood Gas Notified Time Sodium 142 Potassium 3.1 L Chloride 109 H Carbon Dioxide 22 Anion Gap 14 BUN 15 Creatinine 0.6 L Est GFR ( Amer) > 60 Est GFR (Non-Af Amer) > 60 POC Glucose (mg/dL) 118 H Random Glucose 112 H Lactic Acid 1.9 Calcium 8.1 L Phosphorus 3.4 Magnesium 2.0 Total Bilirubin 0.3 AST 41 ALT 12 L D Alkaline Phosphatase 69 Ammonia Total Protein 5.9 L Albumin 3.3 L Globulin 2.6 Albumin/Globulin Ratio 1.3 Arterial Blood Potassium Urine Color Urine Clarity Urine pH Ur Specific [place] Urine Protein Urine Glucose (UA) Urine Ketones Urine Blood Urine Nitrate Urine Bilirubin Urine Urobilinogen Ur Leukocyte Esterase Urine WBC (Auto) Urine RBC (Auto) Hyaline Casts Urine Opiates Screen Urine Methadone Screen Ur Barbiturates Screen Ur Phencyclidine Scrn Ur Amphetamines Screen U Benzodiazepines Scrn U Oth Cocaine Metabols U Cannabinoids Screen Alcohol, Quantitative Radiology Impressions: Radiology Impressions Chest X-Ray 08/13/18 13:06 IMPRESSION: ET tube appropriately position. Nasogastric tube tip is seen at the level of the alison in the mid upper thorax. The nasogastric tube should be replaced or repositioned. The findings in this examination were discussed with RADHA Davis in the ER at 2 p.m. on 08/13/2018. Head CT 08/13/18 13:06 IMPRESSION: Interval improvement in right parietal petechial hemorrhage. No mass effect, new intracranial hemorrhage or hydrocephalus. Adequate preservation of the corticomedullary pattern is identified. EKG/Cardiology Studies: Cardiology / EKG Studies 08/13/18 13:06 ELECTROCARDIOGRAM Stat Comment: [id number] Mode Of Transportation: BED Reason For Exam: intubation,obtunded Fingerstick Blood Sugar Results: 118 Review of Systems - Review of Systems All systems: reviewed and no additional remarkable complaints except Assessment/Plan - Assessment and Plan (Free Text) Assessment: Pt is a 43 y/o male with hx of polysubstance abuse (Cocaine, Benzos, Opiates, and ETOH), Hx of Pancreatitis, DMII (on insulin), Gastritis, Anxiety, PEG tube (due to esophageal strictures), frequent ER visits for intoxication, hx of Alcoholic seizures brought to ED by EMS after being found unresponsive in [facility]. Pt was intubated in ED for protection of airways given his mental status, self- extubated overnight, currently being monitored for withdrawal in ICU given his blood alcohol level > 500 Neuro - ETOH serum 582 - (+) Opiates in Utox - CIWA 0 Monitor for signs of ETOH withdrawal - Self-extubated overnight - Off propofol - on precedex for agitation - Versed d/c'd - Thiamine/folate/multivitamin Cardio - Hemodynamically stable - Monitor BP; Maintain MAP>65 Pulm - Self-extubated overnight - Breathing spontaneously on room air. Continue to monitor respirator - Mild Respiratory Alkalosis on ABG - Keep HOB elevated GI - Glucerna via PEG tube at 20cc/hr - Liver Enzymes normal Renal - BUN/ Crea wnl - Lactic Acid 4, Hyaline cast in urine, likely dehydration. S/P 3L NS in ED. Will keep maintainence fluids to hydrate. F/U Repeat Lactate. - Maintain Urine Output >0.5cc/kg/hr Endocrine - Hx of uncontrolled DM, Last Hga1c 10.3 - ISS, Hypoglycemic protocol, and Accuchecks q6H Heme - H/H stable - Platelets 541 (Chronic thrombocytosis) ID - Afebrile - Leukocytosis 11.7, mild - Any signs of infection, will get cultures Psych -Psych consulted, Dr. Scott - need to determine competency, as patient attempting to leave against medical advice this morning PPX -DVT: Lovenox 40SC daily -GI: Not indicated, will start if intubated >48 hours Discussed case with Dr. Arturo Hernandez, PGY-1
[2018-08-14 14:07] VITALS: PULSE 216; TEMP 98.4; O2SAT 77
--- NOTE | 2018-08-14 16:14 | CP.PCM.DIS ---
Provider - Provider Date of Admission: 08/13/18 14:35 Attending physician: Morgan Gill MD Consults: 08/13/18 19:39 Nursing Referral for Palliative Care Routine Comment: Physician Instructions: Reason For Exam: goals of care 08/14/18 08:10 Psychiatry Consult Routine Comment: Consulting Provider: Elizabeth Scott Consulting Physician: Elizabeth Scott Reason for Consult: Determine competency for MDM Time Spent in preparation of Discharge (in minutes): 10 Hospital Course - Lab Results Lab Results: Most Recent Lab Values WBC 16.6 K/uL (4.8-10.8) H 08/14/18 06:02 RBC 4.37 Mil/uL (4.40-5.90) L 08/14/18 06:02 Hgb 11.6 g/dL (12.0-18.0) L 08/14/18 06:02 Hct 35.8 % (35.0-51.0) 08/14/18 06:02 MCV 81.9 fL (80.0-94.0) 08/14/18 06:02 MCH 26.5 pg (27.0-31.0) L 08/14/18 06:02 MCHC 32.3 g/dL (33.0-37.0) L 08/14/18 06:02 RDW 18.9 % (11.5-14.5) H 08/14/18 06:02 Plt Count 477 K/uL (130-400) H 08/14/18 06:02 MPV 7.7 fL (7.2-11.7) 08/14/18 06:02 Neut % (Auto) 85.6 % (50.0-75.0) H 08/14/18 06:02 Lymph % (Auto) 9.7 % (20.0-40.0) L 08/14/18 06:02 Sampson % (Auto) 4.3 % (0.0-10.0) 08/14/18 06:02 Eos % (Auto) 0.1 % (0.0-4.0) 08/14/18 06:02 Baso % (Auto) 0.3 % (0.0-2.0) 08/14/18 06:02 Neut # (Auto) 14.2 K/uL (1.8-7.0) H 08/14/18 06:02 Lymph # (Auto) 1.6 K/uL (1.0-4.3) 08/14/18 06:02 Sampson # (Auto) 0.7 K/uL (0.0-0.8) 08/14/18 06:02 Eos # (Auto) 0.0 K/uL (0.0-0.7) 08/14/18 06:02 Baso # (Auto) 0.0 K/uL (0.0-0.2) 08/14/18 06:02 Neutrophils % (Manual) 83 % (50-75) H 08/14/18 06:02 Band Neutrophils % 3 % (0-2) H 08/14/18 06:02 Lymphocytes % (Manual) 10 % (20-40) L 08/14/18 06:02 Monocytes % (Manual) 4 % (0-10) 08/14/18 06:02 Platelet Estimate Slightly increased (NORMAL) H 08/14/18 06:02 Anisocytosis (manual) Slight 08/14/18 06:02 Puncture Site Rrad 08/13/18 13:41 pCO2 33 mm/Hg (35-45) L 08/13/18 13:41 pO2 272 mm/Hg (80-100) H 08/13/18 13:41 HCO3 24.7 mmol/L (21-28) 08/13/18 13:41 ABG pH 7.45 (7.35-7.45) 08/13/18 13:41 ABG Total CO2 23.9 mmol/L (22-28) 08/13/18 13:41 ABG O2 Saturation 99.9 % (95-98) H 08/13/18 13:41 ABG Base Excess -0.4 mmol/L (-2.0-3.0) 08/13/18 13:41 Nathaniel Test Pos 08/13/18 13:41 ABG Potassium 2.6 mmol/L (3.6-5.2) L 08/13/18 13:41 A-a O2 Difference 400.0 mm/Hg 08/13/18 13:41 Respiratory Index 1.5 08/13/18 13:41 Sodium 144.0 mmol/l (132-148) 08/13/18 13:41 Chloride 107.0 mmol/L (98-107) 08/13/18 13:41 Glucose 114 mg/dl (75-110) H 08/13/18 13:41 Lactate 4.1 mmol/L (0.7-2.1) H* 08/13/18 13:41 Vent Mode Prvc 08/13/18 13:41 Mechanical Rate 16 08/13/18 13:41 FiO2 100.0 % 08/13/18 13:41 Tidal Volume 500 08/13/18 13:41 PEEP 5 08/13/18 13:41 Crit Value Called To Dr tran 08/13/18 13:41 Crit Value Called By Johann childress rrt 08/13/18 13:41 Crit Value Read Back Y 08/13/18 13:41 Blood Gas Notified Time 1347 08/13/18 13:41 Sodium 142 mmol/L (132-148) 08/14/18 07:03 Potassium 3.1 mmol/L (3.6-5.2) L 08/14/18 07:03 Chloride 109 mmol/L (98-107) H 08/14/18 07:03 Carbon Dioxide 22 mmol/L (22-30) 08/14/18 07:03 Anion Gap 14 (10-20) 08/14/18 07:03 BUN 15 mg/dL (9-20) 08/14/18 07:03 Creatinine 0.6 mg/dL (0.8-1.5) L 08/14/18 07:03 Est GFR ( Amer) > 60 08/14/18 07:03 Est GFR (Non-Af Amer) > 60 08/14/18 07:03 POC Glucose (mg/dL) 118 mg/dL (65-110) H 08/14/18 11:41 Random Glucose 112 mg/dL (75-110) H 08/14/18 07:03 Lactic Acid 1.9 mmol/L (0.7-2.1) 08/14/18 06:02 Calcium 8.1 mg/dl (8.6-10.4) L 08/14/18 07:03 Phosphorus 3.4 mg/dL (2.5-4.5) 08/14/18 07:03 Magnesium 2.0 mg/dL (1.6-2.3) 08/14/18 07:03 Total Bilirubin 0.3 mg/dL (0.2-1.3) 08/14/18 07:03 AST 41 U/L (17-59) 08/14/18 07:03 ALT 12 U/L (21-72) L D 08/14/18 07:03 Alkaline Phosphatase 69 U/L (38-126) 08/14/18 07:03 Ammonia 17 umol/L (9-33) 08/13/18 19:20 Total Protein 5.9 g/dL (6.3-8.3) L 08/14/18 07:03 Albumin 3.3 g/dL (3.5-5.0) L 08/14/18 07:03 Globulin 2.6 gm/dL (2.2-3.9) 08/14/18 07:03 Albumin/Globulin Ratio 1.3 (1.0-2.1) 08/14/18 07:03 Arterial Blood Potassium 2.6 mmol/L (3.6-5.2) L 08/13/18 13:41 Urine Color Yellow (YELLOW) 08/13/18 13:35 Urine Clarity Clear (Clear) 08/13/18 13:35 Urine pH 6.0 (5.0-8.0) 08/13/18 13:35 Ur Specific [place] 1.008 (1.003-1.030) 08/13/18 13:35 Urine Protein 1+ mg/dL (NEGATIVE) H 08/13/18 13:35 Urine Glucose (UA) Normal mg/dL (Normal) 08/13/18 13:35 Urine Ketones Trace mg/dL (NEGATIVE) 08/13/18 13:35 Urine Blood Negative (NEGATIVE) 08/13/18 13:35 Urine Nitrate Negative (NEGATIVE) 08/13/18 13:35 Urine Bilirubin Negative (NEGATIVE) 08/13/18 13:35 Urine Urobilinogen Normal mg/dL (0.2-1.0) 08/13/18 13:35 Ur Leukocyte Esterase Neg Mando/uL (Negative) 08/13/18 13:35 Urine WBC (Auto) 2 /hpf (0-5) 08/13/18 13:35 Urine RBC (Auto) 1 /hpf (0-3) 08/13/18 13:35 Hyaline Casts 3-5 /lpf (0-2) H 08/13/18 13:35 Urine Opiates Screen Positive (NEGATIVE) H 08/13/18 13:35 Urine Methadone Screen Negative (NEGATIVE) 08/13/18 13:35 Ur Barbiturates Screen Negative (NEGATIVE) 08/13/18 13:35 Ur Phencyclidine Scrn Negative (NEGATIVE) 08/13/18 13:35 Ur Amphetamines Screen Negative (NEGATIVE) 08/13/18 13:35 U Benzodiazepines Scrn Negative (NEGATIVE) 08/13/18 13:35 U Oth Cocaine Metabols Negative (NEGATIVE) 08/13/18 13:35 U Cannabinoids Screen Negative (NEGATIVE) 08/13/18 13:35 Alcohol, Quantitative 582 mg/dl (0-10) H 08/13/18 13:35 Discharge Exam - Head Exam Head Exam: ATRAUMATIC, NORMAL INSPECTION, NORMOCEPHALIC Discharge Plan - Follow Up Plan Condition: GOOD Disposition: AGAINST MEDICAL ADVICE
[2018-08-15] MEDS ORDERED: Multiple Vitamins Tab PO SCH (10:00)
== END 2018-08-14 14:00 | disposition left against medical advice (07) | DRG 743 ==
LOC: C.ER 12:36 → C.9I 14:35
PROVIDERS: ADMIT Internal Medicine Nephrology; ATTEND Internal Medicine Nephrology
PROC: 0BH17EZ Insertion of Endotracheal Airway into Trachea, Via Natural or Artificial Opening (ICD-10-PCS; principal; 2018-08-13)
PROC: 5A1945Z Respiratory Ventilation, 24-96 Consecutive Hours (ICD-10-PCS; 2018-08-13)
DX: F10.120 Alcohol abuse with intoxication, uncomplicated (principal); F11.10 Opioid abuse, uncomplicated; E86.0 Dehydration; E87.3 Alkalosis; Y90.8 Blood alcohol level of 240 mg/100 ml or more; E11.9 Type 2 diabetes mellitus without complications; D72.829 Elevated white blood cell count, unspecified; F17.200 Nicotine dependence, unspecified, uncomplicated; Z68.1 Body mass index [BMI] 19.9 or less, adult

== ENCOUNTER 2018-08-18 13:28 | Inpatient (IN) | payer OTHER ==
[2018-08-18 13:28] VITALS: BMI 16.2
--- NOTE | 2018-08-18 14:50 | C.PDOC ---
History Of Present Illness 43 year old homeless male w/ pmhx of diabetes and alcohol abuse presents to ED with complaints of cough, vomiting, peg site pain/drainage, unsteadiness when walking for 1 day. Patient reports he developed cough, productive of yellow sputum yesterday, reports vomiting s/p PEG feeds since last night, reports PEG site erythema and purulent drainage with abdominal pain for 1 day, reports gain instability/weakness since yesterday. Pt reports recent fall to knees bilaterally. Denies trauma/fall to head. Pt is unaware he was recently admitted on 08/13 in an obtunded state requiring intubation. Patient notes redness of hands, new low back pain and requests pain medication. <Alisha Khanna - Last Filed: 08/18/18 19:09> History Per: Patient History/Exam Limitations: no limitations Onset/Duration Of Symptoms: Days Current Symptoms Are (Timing): Still Present Context: Other (cough) Associated Symptoms: Dyspnea <Alisha Khanna - Last Filed: 08/18/18 19:09> <Rio Arredondo DO - Last Filed: 08/19/18 00:28> Chief Complaint (Nursing): Chest Pain Past Medical History Vital Signs: Last Vital Signs Temp Pulse 117 H 08/18/18 13:49 Resp 22 08/18/18 13:49 BP 108/64 08/18/18 13:49 Pulse Ox 94 L 08/18/18 13:49 - Medical History PMH: Diabetes (metformin), Gastritis, Pancreatitis Denies: Anxiety, Arthritis, Bipolar Disorder, Crohn's Disease, Depression, Diverticulitis, Fractures, Gall Bladder Disease, HIV, HTN, Hyperthyroidism, Hypothyroidism, Osteoporosis, Paranoia, Post Traumatic Stress Disorder, Chronic Kidney Disease, Rheumatoid Arthritis, Schizophrenia, Seizures, Sexually Transmitted Disease - [facility] Procedures CLOSURE SKIN & SUBCUTANEOUS NEC (06/04/03) DETOXIFICATION SERVICES FOR SUBSTANCE ABUSE TREATMENT (04/24/18) DILATION OF UPPER ESOPHAGUS, ENDO (07/20/18) ESOPHAGOGASTRODUODENOSCOPY [EGD] W/CLOSED BIOPSY (11/12/14) GROUP PREFABRICATOR FOR SUBSTANCE ABUSE TREATMENT, PSYCHOEDUCATION (04/24/18) GROUP PREFABRICATOR FOR SUBSTANCE ABUSE, COGNITIVE BEHAVIORAL (04/24/18) GROUP PSYCHOTHERAPY (04/24/18) INDIV PSYCHOTHERAPY FOR SUBSTANCE ABUSE TREATMENT, SUPPORT (04/24/18) INDIV PSYCHOTHERAPY FOR SUBSTANCE ABUSE, COGNITIV BEHAVIORAL (04/24/18) INDIV PSYCHOTHERAPY FOR SUBSTANCE ABUSE, PSYCHOEDUCATION (04/24/18) INDIVIDUAL PSYCHOTHERAPY, COGNITIVE-BEHAVIORAL (04/24/18) INDIVIDUAL PSYCHOTHERAPY, SUPPORTIVE (04/24/18) INFLUENZA VACCINATION (02/05/13) INSERTION OF ENDOTRACHEAL AIRWAY INTO TRACHEA, VIA OPENING (08/13/18) INSERTION OF FEEDING DEVICE INTO STOMACH, OPEN APPROACH (06/13/18) INSPECTION OF LARYNX, ENDO (06/13/18) LARYGNOSCOPY AND OTH TRACHEOSCOPY (05/02/14) PHARMACOTHERAPY FOR SUBSTANCE ABUSE, NICOTINE REPLACE (06/20/17) RESPIRATORY VENTILATION, 24-96 CONSECUTIVE HOURS (08/13/18) Family History: States: No Known Family Hx - Social History Hx Tobacco Use: Yes Hx Alcohol Use: Yes Hx Substance Use: Yes - Immunization History Hx Tetanus Toxoid Vaccination: Yes Hx Influenza Vaccination: Yes (02/2018) Hx Pneumococcal Vaccination: No <Alisha Khanna - Last Filed: 08/18/18 19:09> Vital Signs: Last Vital Signs Temp 98.1 F 08/18/18 17:23 Pulse 94 H 08/18/18 17:23 Resp 18 08/18/18 17:23 BP 118/86 08/18/18 17:23 Pulse Ox 94 L 08/18/18 18:44 - [facility] Procedures CLOSURE SKIN & SUBCUTANEOUS NEC (06/04/03) DETOXIFICATION SERVICES FOR SUBSTANCE ABUSE TREATMENT (04/24/18) DILATION OF UPPER ESOPHAGUS, ENDO (07/20/18) ESOPHAGOGASTRODUODENOSCOPY [EGD] W/CLOSED BIOPSY (11/12/14) GROUP PREFABRICATOR FOR SUBSTANCE ABUSE TREATMENT, PSYCHOEDUCATION (04/24/18) GROUP PREFABRICATOR FOR SUBSTANCE ABUSE, COGNITIVE BEHAVIORAL (04/24/18) GROUP PSYCHOTHERAPY (04/24/18) INDIV PSYCHOTHERAPY FOR SUBSTANCE ABUSE TREATMENT, SUPPORT (04/24/18) INDIV PSYCHOTHERAPY FOR SUBSTANCE ABUSE, COGNITIV BEHAVIORAL (04/24/18) INDIV PSYCHOTHERAPY FOR SUBSTANCE ABUSE, PSYCHOEDUCATION (04/24/18) INDIVIDUAL PSYCHOTHERAPY, COGNITIVE-BEHAVIORAL (04/24/18) INDIVIDUAL PSYCHOTHERAPY, SUPPORTIVE (04/24/18) INFLUENZA VACCINATION (02/05/13) INSERTION OF ENDOTRACHEAL AIRWAY INTO TRACHEA, VIA OPENING (08/13/18) INSERTION OF FEEDING DEVICE INTO STOMACH, OPEN APPROACH (06/13/18) INSPECTION OF LARYNX, ENDO (06/13/18) LARYGNOSCOPY AND OTH TRACHEOSCOPY (05/02/14) PHARMACOTHERAPY FOR SUBSTANCE ABUSE, NICOTINE REPLACE (06/20/17) RESPIRATORY VENTILATION, 24-96 CONSECUTIVE HOURS (08/13/18) <Rio Arredondo DO - Last Filed: 08/19/18 00:28> Review Of Systems Constitutional: Positive for: Weakness Cardiovascular: Negative for: Chest Pain Respiratory: Positive for: Cough, Shortness of Breath, Sputum (yellow). Negative for: Hemoptysis Gastrointestinal: Positive for: Vomiting, Abdominal Pain. Negative for: Hematemesis Musculoskeletal: Positive for: Back Pain Skin: Positive for: Other (redness/pain around PEG site) Neurological: Positive for: Weakness, Incoordination <Alisha Khanna - Last Filed: 08/18/18 19:09> Physical Exam - Physical Exam Appears: Non-toxic, No Acute Distress, Agitated Skin: Warm, Dry, Other (erythema/dried purulent drainage aroung PEG. Redness to dorsal hands B/L) Head: Atraumatic, Normacephalic Eye(s): bilateral: Normal Inspection, EOMI Cardiovascular: Rhythm Regular, No Murmur Respiratory: No Accessory Muscle Use, Rhonchi Gastrointestinal/Abdominal: Bowel Sounds, Soft, Tenderness (around PEG site/epigastric), No Distention, No Guarding, No Rebound Back: Normal Inspection, No Vertebral Tenderness, No Muscle Spasm, No Paraspinal Tenderness Extremity: No Pedal Edema, No Calf Tenderness Neurological/Psych: Oriented x3 <Alisha Khanna - Last Filed: 08/18/18 19:09> ED Course And Treatment - Laboratory Results Result Diagrams: 08/18/18 14:43 08/18/18 14:43 Lab Interpretation: Abnormal Interpretation Of Abnormal: hypokalemia, leukocytosis O2 Sat by Pulse Oximetry: 94 <Alisha Khanna Last Filed: 08/18/18 19:09> - Laboratory Results Result Diagrams: 08/18/18 14:43 08/18/18 14:43 Lab Results: Troponin I < 0.0120 ng/mL (0.00-0.120) 08/18/18 14:43 Total Bilirubin 1.5 mg/dL (0.2-1.3) H 08/18/18 14:43 AST 119 U/L (17-59) H D 08/18/18 14:43 ALT 91 U/L (21-72) H D 08/18/18 14:43 Alkaline Phosphatase 93 U/L (38-126) 08/18/18 14:43 Total Protein 7.4 g/dL (6.3-8.3) 08/18/18 14:43 Albumin 4.3 g/dL (3.5-5.0) 08/18/18 14:43 Globulin 3.1 gm/dL (2.2-3.9) 08/18/18 14:43 Albumin/Globulin Ratio 1.4 (1.0-2.1) 08/18/18 14:43 Lipase 29 U/L (23-300) 08/18/18 14:43 Urine Color Yellow (YELLOW) 08/18/18 15:32 Urine Clarity Hazy (Clear) 08/18/18 15:32 Urine pH 6.5 (5.0-8.0) 08/18/18 15:32 Ur Specific [place] > 1.030 (1.003-1.030) H 08/18/18 15:32 Urine Protein 100 mg/dL (NEGATIVE) 08/18/18 15:32 Urine Glucose (UA) 250 mg/dL (Normal) 08/18/18 15:32 Urine Ketones >80 mg/dL (NEGATIVE) 08/18/18 15:32 Urine Blood Trace (NEGATIVE) 08/18/18 15:32 Urine Nitrate Negative (NEGATIVE) 08/18/18 15:32 Urine Bilirubin Moderate (NEGATIVE) 08/18/18 15:32 Urine Urobilinogen 1.0 mg/dL (0.2-1.0) 08/18/18 15:32 Ur Leukocyte Esterase Negative Mando/uL (Negative) 08/18/18 15:32 Urine WBC (Auto) 8 /hpf (0-5) H 08/18/18 15:32 Urine RBC (Auto) 4 /hpf (0-3) H 08/18/18 15:32 Urine Bacteria Rare (<OCC) 08/18/18 15:32 Hyaline Casts >20 /lpf (0-2) H 08/18/18 15:32 - Other Rad CXR X-Ray: Viewed By Me, Read By Radiologist Interpretation: Date of service: 08/18/2018. HISTORY: cough, SOB. COMPARI SON: 08/13/2018. FINDINGS: LUNGS: The lungs are well inflated and clear. PLEURA: No pleural effusions or pneumothorax. CARDIOVASCULAR: The heart is normal in size. No aortic atherosclerotic calcifications present. OSSEOUS STRUCTURES: There is an old fracture deformity in the midshaft of the left clavicle. Otherwise, within normal limits for the patient's age. VISUALIZED UPPER ABDOMEN: Normal. OTHER FINDINGS: None. IMPRESSION: No active pulmonary disease. - CT Scan/US CT-Head Other Rad Studies (CT/US): Read By Radiologist, Radiology Report Reviewed CT/US Interpretation: Date of service: 08/18/2018. PROCEDURE: CT HEAD WITHOUT CONTRAST. HISTORY: recent parenchymal hemorrhage. COMPARISON: Noncontrast head CT performed 08/13/18. TECHNIQUE: Axial computed tomography images were obtained through the head/brain without intravenous contrast. Radiation dose: Total exam DLP = 1082.4 mGy-cm. This CT exam was performed using one or more of the following dose reduction techniques: Automated exposure control, adjustment of the mA and/or kV according to patient size, and/or use of iterative reconstruction technique. FINDINGS: HEMORRHAGE: No intracranial hemorrhage. BRAIN: No mass effect or edema. Scattered periventricular and subcortical white matter hypodensities, which are nonspecific, but often seen with chronic microvascular ischemic disease. VENTRICLES: No hydrocephalus. CALVARIUM: Unremarkable. PARANASAL SINUSES: Mucosal thickening of the left greater than right maxillary sinuses. MASTOID AIR CELLS: Unremarkable as visualized. No inflammatory changes. OTHER FINDINGS: None. IMPRESSION: Nonspecific white matter changes. Mucosal thickening of the left greater than right maxillary sinuses. CT-Abd & Pelv. Other Rad Studies (CT/US): Read By Radiologist, Radiology Report Reviewed CT/US Interpretation: PROCEDURE: CT Abdomen and Pelvis without Oral or IV contrast. HISTORY: Abdominal pain, vomiting, PEG. COMPARISON: CT abdomen and pelvis without IV contrast performed 04/03/18. TECHNIQUE: Contiguous axial images of the abdomen and pelvis. No oral or IV contrast administered. Coronal and Sagittal reformats generated and reviewed. Radiation dose: Total exam DLP = 252.14 mGy-cm. This CT exam was performed using one or more of the following dose reduction techniques: Automated exposure control, adjustment of the mA and/or kV according to patient size, and/or use of iterative reconstruction technique. FINDINGS: There is limited evaluation of the solid organs without the administration of IV contrast. LOWER THORAX: No visible consolidation, pleural effusion, or pneumothorax. LIVER: Hypoattenuation of the liver compatible with hepatic steatosis. GALLBLADDER AND BILE DUCTS: Unremarkable unenhanced appearance. PANCREAS: Unremarkable unenhanced appearance. SPLEEN: Unremarkable unenhanced appearance. ADRENALS: Bilateral adrenal gland hypertrophy. KIDNEYS AND URETERS: No hydronephrosis or obstructing renal calculus. BLADDER: Urinary bladder appears mildly thick-walled, likely exaggerated by under distension. REPRODUCTIVE: The prostate gland measures approximately 2.9 x 4.0 cm. APPENDIX: The appendix appears within normal limits of caliber. No secondary signs of acute appendicitis. BOWEL: Percutaneous gastrostomy tube appears in place. The stomach is nondistended. Lack of oral contrast limits evaluation for bowel pathology. The bowel loops appear within normal limits of caliber without evidence of intestinal obstruction. PERITONEUM: No significant free fluid. No definite free air. LYMPH NODES: No bulky lymphadenopathy identified. VASCULATURE: Atherosclerotic calcifications of the aorta. No aortic aneurysm. BONES: Degenerative changes. OTHER FINDINGS: None. IMPRESSION: Examination limited by motion, paucity of intra-abdominal/pelvic fat, as well as absence of oral or IV contrast. Hypoattenuation of the liver compatible with hepatic steatosis. Percutaneous gastrostomy tube appears in place within the stomach. Bilateral adrenal gland hypertrophy. Mildly thick-walled urinary bladder likely exaggerated by under distension. Additional findings as above. <Rio Arredondo DO - Last Filed: 08/19/18 00:28> Medical Decision Making Medical Decision Making: CBC CMP Lipase CXR CT head CT A/P blood cx UA UDS U cx K+ repletion IVF Zofran/reglan Zosyn morphine <Alisha Khanna - Last Filed: 08/18/18 19:09> Disposition Discussed With : Domenic Gill Comment: accepted to service Doctor Will See Patient In The: Hospital Counseled Patient/Family Regarding: Studies Performed, Diagnosis, Need For Followup - Disposition Disposition Time: 18:36 - POA Present On Arrival: None <Alisha Khanna - Last Filed: 08/18/18 19:09> - Disposition Disposition Time: 18:20 <Rio Arredondo DO - Last Filed: 08/19/18 00:28> - Disposition Disposition: HOSPITALIZED Condition: STABLE - Clinical Impression Clinical Impression: Hyperglycemia, Dehydration, Abdominal pain, Cellulitis - PA / ASSOCIATE EMBALMER/FUNERAL DIRECTOR / Resident Statement LATESHA has reviewed & agrees with the documentation as recorded. LATESHA has examined the patient and agrees with the treatment plan. <Rio Arredondo DO - Last Filed: 08/19/18 00:28>
[2018-08-18 14:54] LABS: BASO # 0.1 K/uL (0.0-0.2); BASO % 0.4 % (0.0-2.0); EOS % 0.1 % (0.0-4.0); LYMPH # 1.4 K/uL (1.0-4.3); LYMPH % 10.2 % (20.0-40.0); MEAN CELL VOLUME 82.7 fL (80.0-94.0); MEAN CORPUSCULAR HEMOGLOBIN 26.5 pg (27.0-31.0); MEAN PLATELET VOLUME 8.3 fL (7.2-11.7); MONO # 0.4 K/uL (0.0-0.8); MONO % 2.5 % (0.0-10.0); NEUT # 12.3 K/uL (1.8-7.0); NEUT % 86.8 % (50.0-75.0); RBC 5.31 Mil/uL (4.40-5.90); RED CELL DISTRIBUTION WIDTH 19.8 % (11.5-14.5); WHITE BLOOD COUNT 14.2 K/uL (4.8-10.8)
[2018-08-18 14:59] LABS: HEMOGLOBIN 14.1 g/dL (12.0-18.0)
[2018-08-18 15:14] LABS: ALB/GLOB RATIO 1.4 (1.0-2.1); ALBUMIN 4.3 g/dL (3.5-5.0); ALT/SGPT 91 U/L (21-72); AST/SGOT 119 U/L (17-59); BLOOD UREA NITROGEN 18 mg/dL (9-20); CALCIUM 9.8 mg/dl (8.6-10.4); GFR NON-AFRICAN AMERICAN > 60; LIPASE 29 U/L (23-300)
[2018-08-18 15:16] LABS: CK-MB 4.61 ng/mL (0.0-3.38)
[2018-08-18 15:49] LABS: URINE BILIRUBIN MODERATE (NEGATIVE); URINE GLUCOSE (UA) 250 mg/dL (Normal)
[2018-08-18 15:50] LABS: PH,URINE 6.5 (5.0-8.0); URINE BLOOD TRACE (NEGATIVE); URINE LEUKOCYTE ESTERASE Negative Leu/uL (Negative); URINE PROTEIN 100 mg/dL (NEGATIVE)
[2018-08-18] MEDS ORDERED: Sodium Chloride 0.9% 1,000 ML IV ONE (16:02)
[2018-08-18 16:06] LABS: URINE CLARITY Hazy (Clear); URINE COLOR YELLOW (YELLOW)
[2018-08-18 16:07] LABS: URINE BACTERIA RARE (<OCC); URINE HYALINE CAST >20 /lpf (0-2)
[2018-08-18] MEDS ORDERED: Sodium Chloride 0.9% 1,000 ML ONE (16:12)
--- NOTE | 2018-08-18 16:24 | RAD ---
Date of service: 08/18/2018 HISTORY: cough, SOB COMPARISON: 08/13/2018. FINDINGS: LUNGS: The lungs are well inflated and clear. PLEURA: No pleural effusions or pneumothorax. CARDIOVASCULAR: The heart is normal in size. No aortic atherosclerotic calcifications present. OSSEOUS STRUCTURES: There is an old fracture deformity in the midshaft of the left clavicle. Otherwise, within normal limits for the patient's age. VISUALIZED UPPER ABDOMEN: Normal. OTHER FINDINGS: None. IMPRESSION: No active pulmonary disease.
[2018-08-18 16:34] LABS: BARBITURATES, UR NEGATIVE (NEGATIVE); BENZODIAZEPINES, UR NEGATIVE (NEGATIVE); OPIATES, UR NEGATIVE (NEGATIVE); PHENCYCLIDINE, UR NEGATIVE (NEGATIVE)
--- NOTE | 2018-08-18 17:28 | CT ---
Date of service: 08/18/2018 PROCEDURE: CT HEAD WITHOUT CONTRAST. HISTORY: recent parenchymal hemorrhage COMPARISON: Noncontrast head CT performed 08/13/18 TECHNIQUE: Axial computed tomography images were obtained through the head/brain without intravenous contrast. Radiation dose: Total exam DLP = 1082.4 mGy-cm. This CT exam was performed using one or more of the following dose reduction techniques: Automated exposure control, adjustment of the mA and/or kV according to patient size, and/or use of iterative reconstruction technique. FINDINGS: HEMORRHAGE: No intracranial hemorrhage. BRAIN: No mass effect or edema. Scattered periventricular and subcortical white matter hypodensities, which are nonspecific, but often seen with chronic microvascular ischemic disease. VENTRICLES: No hydrocephalus. CALVARIUM: Unremarkable. PARANASAL SINUSES: Mucosal thickening of the left greater than right maxillary sinuses. MASTOID AIR CELLS: Unremarkable as visualized. No inflammatory changes. OTHER FINDINGS: None. IMPRESSION: Nonspecific white matter changes. Mucosal thickening of the left greater than right maxillary sinuses.
--- NOTE | 2018-08-18 18:27 | CT ---
PROCEDURE: CT Abdomen and Pelvis without Oral or IV contrast. HISTORY: Abdominal pain, vomiting, PEG COMPARISON: CT abdomen and pelvis without IV contrast performed 04/03/18 TECHNIQUE: Contiguous axial images of the abdomen and pelvis. No oral or IV contrast administered. Coronal and Sagittal reformats generated and reviewed. Radiation dose: Total exam DLP = 252.14 mGy-cm. This CT exam was performed using one or more of the following dose reduction techniques: Automated exposure control, adjustment of the mA and/or kV according to patient size, and/or use of iterative reconstruction technique. FINDINGS: There is limited evaluation of the solid organs without the administration of IV contrast. LOWER THORAX: No visible consolidation, pleural effusion, or pneumothorax. LIVER: Hypoattenuation of the liver compatible with hepatic steatosis. GALLBLADDER AND BILE DUCTS: Unremarkable unenhanced appearance. PANCREAS: Unremarkable unenhanced appearance. SPLEEN: Unremarkable unenhanced appearance. ADRENALS: Bilateral adrenal gland hypertrophy. KIDNEYS AND URETERS: No hydronephrosis or obstructing renal calculus. BLADDER: Urinary bladder appears mildly thick-walled, likely exaggerated by under distension. REPRODUCTIVE: The prostate gland measures approximately 2.9 x 4.0 cm. APPENDIX: The appendix appears within normal limits of caliber. No secondary signs of acute appendicitis. BOWEL: Percutaneous gastrostomy tube appears in place. The stomach is nondistended. Lack of oral contrast limits evaluation for bowel pathology. The bowel loops appear within normal limits of caliber without evidence of intestinal obstruction. PERITONEUM: No significant free fluid. No definite free air. LYMPH NODES: No bulky lymphadenopathy identified. VASCULATURE: Atherosclerotic calcifications of the aorta. No aortic aneurysm. BONES: Degenerative changes. OTHER FINDINGS: None. IMPRESSION: Examination limited by motion, paucity of intra-abdominal/pelvic fat, as well as absence of oral or IV contrast. Hypoattenuation of the liver compatible with hepatic steatosis. Percutaneous gastrostomy tube appears in place within the stomach. Bilateral adrenal gland hypertrophy. Mildly thick-walled urinary bladder likely exaggerated by under distension. Additional findings as above.
[2018-08-18] MEDS ORDERED: Piperacill/Tazo 3.375gm in Dex 3.375 GM/50 ML BAG IVPB STA (18:38)
[2018-08-18] MEDS ORDERED: Morphine 4 MG/ML VIAL IV STA (18:57)
[2018-08-18] MEDS ORDERED: Piperacillin/Tazobact 3.375 gm 100 ML IVPB ONE (18:59)
[2018-08-18] MEDS ORDERED: Potassium Chloride 20 mEq 100 ML ONE (19:25)
[2018-08-18 20:53] VITALS: RESP 20
--- NOTE | 2018-08-19 09:07 | CP.PCM.HP ---
Past Patient History - Infectious Disease Hx of Infectious Diseases: None - Tetanus Immunizations Tetanus Immunization: Unknown - Past Medical History & Family History Past Medical History?: Yes - Past Social History Smoking Status: Heavy Smoker > 10 Cigarettes Daily - CARDIAC Hx Cardiac Disorders: No Hx Hypertension: No - PULMONARY Hx Tuberculosis: No Other/Comment: Currently smokes 2 ppd - NEUROLOGICAL Hx Neurological Disorder: No Hx Seizures: No - HEENT Hx HEENT Problems: No - RENAL Hx Chronic Kidney Disease: No - ENDOCRINE/METABOLIC Hx Endocrine Disorders: No Hx Hyperthyroidism: No Hx Hypothyroidism: No - HEMATOLOGICAL/ONCOLOGICAL Hx Human Immunodeficiency Virus (HIV): No - INTEGUMENTARY Hx Dermatological Problems: No - MUSCULOSKELETAL/RHEUMATOLOGICAL Hx Falls: Yes - GASTROINTESTINAL Hx Gastrointestinal Disorders: Yes Hx Gastritis: Yes Hx Pancreatitis: Yes - GENITOURINARY/GYNECOLOGICAL Hx Genitourinary Disorders: No Hx Sexually Transmitted Disorders: No - PSYCHIATRIC Hx Substance Use: Yes - SURGICAL HISTORY Hx Surgeries: No - ANESTHESIA Hx Anesthesia: Yes Hx Anesthesia Reactions: No Hx Malignant Hyperthermia: No Has any member of the family had a problem w/ anesthesia?: No Meds Allergies/Adverse Reactions: Allergies Allergy/AdvReac Type Severity Reaction Status Date / Time No Known Allergies Allergy Verified 07/20/18 10:47 Results - Vital Signs Recent Vital Signs: Last Vital Signs Temp 97.4 F L 08/19/18 07:00 Pulse 60 08/19/18 07:00 Resp 20 08/19/18 07:00 BP 156/99 H 08/19/18 07:00 Pulse Ox 100 08/19/18 07:00 - Labs Result Diagrams: 08/18/18 14:43 08/18/18 14:43 Labs: Laboratory Results - last 24 hr 08/18/18 08/18/18 08/18/18 14:43 14:43 15:32 WBC 14.2 H RBC 5.31 Hgb 14.1 D Hct 43.9 MCV 82.7 MCH 26.5 L MCHC 32.0 L RDW 19.8 H Plt Count 345 D MPV 8.3 Neut % (Auto) 86.8 H Lymph % (Auto) 10.2 L [place] % (Auto) 2.5 Eos % (Auto) 0.1 Baso % (Auto) 0.4 Neut # (Auto) 12.3 H Lymph # (Auto) 1.4 [place] # (Auto) 0.4 Eos # (Auto) 0.0 Baso # (Auto) 0.1 Sodium 148 Potassium 3.1 L Chloride 103 Carbon Dioxide 26 Anion Gap 22 H BUN 18 Creatinine 0.9 Est GFR ( Amer) > 60 Est GFR (Non-Af Amer) > 60 POC Glucose (mg/dL) Random Glucose 397 H D Calcium 9.8 Total Bilirubin 1.5 H AST 119 H D ALT 91 H D Alkaline Phosphatase 93 Total Creatine Kinase 3029 H CK-MB (Mass) 4.61 H Troponin I < 0.0120 Total Protein 7.4 Albumin 4.3 Globulin 3.1 Albumin/Globulin Ratio 1.4 Lipase 29 Urine Color Urine Clarity Urine pH Ur Specific [place] Urine Protein Urine Glucose (UA) Urine Ketones Urine Blood Urine Nitrate Urine Bilirubin Urine Urobilinogen Ur Leukocyte Esterase Urine WBC (Auto) Urine RBC (Auto) Urine Bacteria Hyaline Casts Urine Opiates Screen Negative Urine Methadone Screen Negative Ur Barbiturates Screen Negative Ur Phencyclidine Scrn Negative Ur Amphetamines Screen Negative U Benzodiazepines Scrn Negative U Oth Cocaine Metabols Negative U Cannabinoids Screen Negative 08/18/18 08/19/18 08/19/18 15:32 02:09 06:59 WBC RBC Hgb Hct MCV MCH MCHC RDW Plt Count MPV Neut % (Auto) Lymph % (Auto) [place] % (Auto) Eos % (Auto) Baso % (Auto) Neut # (Auto) Lymph # (Auto) [place] # (Auto) Eos # (Auto) Baso # (Auto) Sodium Potassium Chloride Carbon Dioxide Anion Gap BUN Creatinine Est GFR ( Amer) Est GFR (Non-Af Amer) POC Glucose (mg/dL) 193 H 233 H Random Glucose Calcium Total Bilirubin AST ALT Alkaline Phosphatase Total Creatine Kinase CK-MB (Mass) Troponin I Total Protein Albumin Globulin Albumin/Globulin Ratio Lipase Urine Color Yellow Urine Clarity Hazy Urine pH 6.5 Ur Specific [place] > 1.030 H Urine Protein 100 Urine Glucose (UA) 250 Urine Ketones >80 Urine Blood Trace Urine Nitrate Negative Urine Bilirubin Moderate Urine Urobilinogen 1.0 Ur Leukocyte Esterase Negative Urine WBC (Auto) 8 H Urine RBC (Auto) 4 H Urine Bacteria Rare Hyaline Casts >20 H Urine Opiates Screen Urine Methadone Screen Ur Barbiturates Screen Ur Phencyclidine Scrn Ur Amphetamines Screen U Benzodiazepines Scrn U Oth Cocaine Metabols U Cannabinoids Screen Assessment & Plan (1) Abdominal pain Status: Acute (2) Cellulitis Status: Acute (3) Dehydration Status: Acute (4) Hyperglycemia Status: Acute (5) Airway compromise Status: Acute (6) Alcohol abuse Status: Acute (7) Alcohol intoxication Status: Acute (8) Alcohol use disorder, severe, dependence Status: Acute (9) Alcohol withdrawal Status: Acute (10) Alcoholic pancreatitis Status: Acute (11) Colitis Status: Acute (12) DKA (diabetic ketoacidoses) Status: Acute (13) Esophagitis Status: Acute (14) Failure to thrive Status: Acute (15) Hypokalemia Status: Acute (16) Hyponatremia Status: Acute (17) Obtunded Status: Acute (18) Seizure Status: Acute (19) Throat pain in adult Status: Acute (20) Upper gastrointestinal hemorrhage Status: Acute (21) Vomiting Status: Acute (22) Weakness Status: Acute (23) Intussusception of jejunum Status: Resolved - Assessment and Plan (Free Text) Plan: IV morphine as needed Status post KCl supplementations Reglan GI consult with we note for possible dilatations Patient IV Zosyn 3.375 every 6 Pain medications Patient has a stricture of the esophagus Protonix We will not give Lovenox as patient may undergo the procedure
[2018-08-19] MEDS: Piperacill/Tazo 3.375gm in Dex 3.375 GM/50 ML BAG IVPB SCH ×4 (10:59→22:22)
[2018-08-19 11:56] LABS: BLOOD UREA NITROGEN 17 mg/dL (9-20); CALCIUM 8.9 mg/dl (8.6-10.4); GFR NON-AFRICAN AMERICAN > 60
--- NOTE | 2018-08-19 12:11 | CP.PCM.CON ---
<Priscilla Gill - Last Filed: 08/19/18 13:57> History of Present Illness - History of Present Illness History of Present Illness: PGY5 GI Inital Consult Jared Rodríguez is a 43 year old male with PMH of distal esophageal stricture s/p G-tube placement 06/23/18 and dilatation 07/23/2018 in setting of PUD (esophageal, gastric, duodenal) on EGDs November 2014 and Polysubstance Abuse over ten years (EtOH/cocaine/heroin/benzodiazepines/tobacco), alcoholic pancreatitis 06/2018, Diabetes, and HTN presenting with weakness and abd pain. Pt states that he was unable to follow-up with GI for subsequent dilatation as an outpt due to insurance issues. He states that he continues to have abd pain, s imiliar to his prior pain. He also noted vomiting after his feeds last night. He denies any fever, chills or diaphoresis. He does admit that the skin around his PEG site has been more red for the past few days, but denies any discharge. He denies any recent PO intake or ETOH use. Recent discharge from [facility] ED on 07/30 and for ETOH intoxication. He was previously discharge in July 2018 after having an EGD with floro guided dilatation. Previously he presented on 06/2018 for vomiting 2/2 distal esophageal stenosis at 30cm from incisors, not traversed and LAGD esophagitis from 15-35cm negative for malignancy/CMV/HSV on pathology. Prior longstanding noncompliance to medical therapy with known peptic ulcer disease since 2014 t o discharge 04/2018 for DKA and left against medical advice. Denies additional weight loss in the last month since discharge 06/2018 with prior note of 40-50 pound unintentional weight loss. Denies diarrhea, constipation, melena, hematochezia, or hematemesis. No prior colonoscopy. Family History- denies stomach cancer, colon cancer Surgical History- none Social History- endorses sobriety since discharge 06/06/18- prior 3-4 pints vodka daily, beer daily (at least 10 years) , range tobacco use 1/2-2ppd x 30 years to illicit drug abuse- cocaine, heroin, opiates, BZDs Endoscopic History: 05/2014,11/2014- hiatal hernia, severe esophageal ulceration, Grade 1 GE junction esophageal varices, multiple gastric cardia/antral ulcers, duodenal bulb and descend duodenum ulcers, H. pylori negative gastritis 06/17/2018, repeat on 06/18 with pediatric scope unable to traverse esophageal stricture at 30cm from incisors, negative for malignancy/HSV/CMV, LAGD esophagitis 15-35cm from incisors, H. pylori negative gastritis (07/23) EGD showing peptic stricture (approximately 5mm diameter) at 28cm from incisors s/p CRE balloon 6-7-8mm dilatation with fluoroscopy without complication- tissue friable, LAGD esophagitis Past Patient History - Infectious Disease Hx of Infectious Diseases: None - Tetanus Immunizations Tetanus Immunization: Unknown - Past Medical History & Family History Past Medical History?: Yes - Past Social History Smoking Status: Heavy Smoker > 10 Cigarettes Daily - CARDIAC Hx Cardiac Disorders: No Hx Hypertension: No - PULMONARY Hx Tuberculosis: No Other/Comment: Currently smokes 2 ppd - NEUROLOGICAL Hx Neurological Disorder: No Hx Seizures: No - HEENT Hx HEENT Problems: No - RENAL Hx Chronic Kidney Disease: No - ENDOCRINE/METABOLIC Hx Endocrine Disorders: No Hx Hyperthyroidism: No Hx Hypothyroidism: No - HEMATOLOGICAL/ONCOLOGICAL Hx Human Immunodeficiency Virus (HIV): No - INTEGUMENTARY Hx Dermatological Problems: No - MUSCULOSKELETAL/RHEUMATOLOGICAL Hx Falls: Yes - GASTROINTESTINAL Hx Gastrointestinal Disorders: Yes Hx Gastritis: Yes Hx Pancreatitis: Yes - GENITOURINARY/GYNECOLOGICAL Hx Genitourinary Disorders: No Hx Sexually Transmitted Disorders: No - PSYCHIATRIC Hx Substance Use: Yes - SURGICAL HISTORY Hx Surgeries: No - ANESTHESIA Hx Anesthesia: Yes Hx Anesthesia Reactions: No Hx Malignant Hyperthermia: No Has any member of the family had a problem w/ anesthesia?: No Meds Allergies/Adverse Reactions: Allergies Allergy/AdvReac Type Severity Reaction Status Date / Time No Known Allergies Allergy Verified 07/20/18 10:47 - Medications Medications: Current Medications Piperacillin Sod/Tazobactam Sod (Zosyn 3.375 Gm Iv Premix) 3.375 gm in 50 mls @ 100 mls/hr IVPB Q6H LUCILA; Protocol Last Admin: 08/19/18 10:59 Dose: Not Given Sodium Chloride (Sodium Chloride 0.9%) 1,000 mls @ 100 mls/hr IV .Q10H LUCILA Morphine Sulfate (Morphine) 2 mg IVP Q6H PRN PRN Reason: Pain, severe (8-10) Last Admin: 08/19/18 11:05 Dose: 2 mg Ondansetron HCl (Zofran Inj) 4 mg IVP Q6H PRN PRN Reason: Nausea/Vomiting Pantoprazole Sodium (Protonix Inj) 40 mg IVP DAILY LUCILA Last Admin: 08/19/18 10:58 Dose: 40 mg Physical Exam - Constitutional Appears: Non-toxic, Chronically Ill - Head Exam Head Exam: ATRAUMATIC, NORMOCEPHALIC - Eye Exam Eye Exam: Normal appearance - ENT Exam ENT Exam: Mucous Membranes Moist, Normal Exam - Neck Exam Neck exam: Positive for: Normal Inspection - Respiratory Exam Respiratory Exam: Clear to Auscultation Bilateral, NORMAL BREATHING PATTERN. absent: Rales, Rhonchi, Wheezes - Cardiovascular Exam Cardiovascular Exam: REGULAR RHYTHM, +S1, +S2 - GI/Abdominal Exam GI & Abdominal Exam: Normal Bowel Sounds, Soft, Tenderness (aly PEG site). absent: Diminished Bowel Sounds, Distended, Firm, Guarding, Hernia, Rebound, Ri gid Additional comments: PEG site intact, erythema and slight induration around erythema, no obvious purulent discharge - Extremities Exam Extremities exam: Negative for: joint swelling, pedal edema - Neurological Exam Neurological exam: Alert, Oriented x3 - Psychiatric Exam Psychiatric exam: Normal Affect, Normal Mood - Skin Skin Exam: Dry, Intact, Normal Color, Warm Results - Vital Signs Recent Vital Signs: Last Vital Signs Temp 97.4 F L 08/19/18 07:00 Pulse 60 08/19/18 07:00 Resp 20 08/19/18 07:00 BP 156/99 H 08/19/18 07:00 Pulse Ox 100 08/19/18 07:00 - Labs Result Diagrams: 08/18/18 14:43 08/19/18 11:32 Labs: Laboratory Results - last 24 hr 08/18/18 08/18/18 08/18/18 14:43 14:43 15:32 WBC 14.2 H RBC 5.31 Hgb 14.1 D Hct 43.9 MCV 82.7 MCH 26.5 L MCHC 32.0 L RDW 19.8 H Plt Count 345 D MPV 8.3 Neut % (Auto) 86.8 H Lymph % (Auto) 10.2 L [place] % (Auto) 2.5 Eos % (Auto) 0.1 Baso % (Auto) 0.4 Neut # (Auto) 12.3 H Lymph # (Auto) 1.4 [place] # (Auto) 0.4 Eos # (Auto) 0.0 Baso # (Auto) 0.1 Sodium 148 Potassium 3.1 L Chloride 103 Carbon Dioxide 26 Anion Gap 22 H BUN 18 Creatinine 0.9 Est GFR ( Amer) > 60 Est GFR (Non-Af Amer) > 60 POC Glucose (mg/dL) Random Glucose 397 H D Calcium 9.8 Total Bilirubin 1.5 H AST 119 H D ALT 91 H D Alkaline Phosphatase 93 Total Creatine Kinase 3029 H CK-MB (Mass) 4.61 H Troponin I < 0.0120 Total Protein 7.4 Albumin 4.3 Globulin 3.1 Albumin/Globulin Ratio 1.4 Lipase 29 Urine Color Urine Clarity Urine pH Ur Specific [place] Urine Protein Urine Glucose (UA) Urine Ketones Urine Blood Urine Nitrate Urine Bilirubin Urine Urobilinogen Ur Leukocyte Esterase Urine WBC (Auto) Urine RBC (Auto) Urine Bacteria Hyaline Casts Urine Opiates Screen Negative Urine Methadone Screen Negative Ur Barbiturates Screen Negative Ur Phencyclidine Scrn Negative Ur Amphetamines Screen Negative U Benzodiazepines Scrn Negative U Oth Cocaine Metabols Negative U Cannabinoids Screen Negative 08/18/18 08/19/18 08/19/18 15:32 02:09 06:59 WBC RBC Hgb Hct MCV MCH MCHC RDW Plt Count MPV Neut % (Auto) Lymph % (Auto) [place] % (Auto) Eos % (Auto) Baso % (Auto) Neut # (Auto) Lymph # (Auto) [place] # (Auto) Eos # (Auto) Baso # (Auto) Sodium Potassium Chloride Carbon Dioxide Anion Gap BUN Creatinine Est GFR ( Amer) Est GFR (Non-Af Amer) POC Glucose (mg/dL) 193 H 233 H Random Glucose Calcium Total Bilirubin AST ALT Alkaline Phosphatase Total Creatine Kinase CK-MB (Mass) Troponin I Total Protein Albumin Globulin Albumin/Globulin Ratio Lipase Urine Color Yellow Urine Clarity Hazy Urine pH 6.5 Ur Specific [place] > 1.030 H Urine Protein 100 Urine Glucose (UA) 250 Urine Ketones >80 Urine Blood Trace Urine Nitrate Negative Urine Bilirubin Moderate Urine Urobilinogen 1.0 Ur Leukocyte Esterase Negative Urine WBC (Auto) 8 H Urine RBC (Auto) 4 H Urine Bacteria Rare Hyaline Casts >20 H Urine Opiates Screen Urine Methadone Screen Ur Barbiturates Screen Ur Phencyclidine Scrn Ur Amphetamines Screen U Benzodiazepines Scrn U Oth Cocaine Metabols U Cannabinoids Screen 08/19/18 08/19/18 11:05 11:32 WBC RBC Hgb Hct MCV MCH MCHC RDW Plt Count MPV Neut % (Auto) Lymph % (Auto) [place] % (Auto) Eos % (Auto) Baso % (Auto) Neut # (Auto) Lymph # (Auto) [place] # (Auto) Eos # (Auto) Baso # (Auto) Sodium 142 Potassium 3.0 L Chloride 104 Carbon Dioxide 33 H Anion Gap 8 L BUN 17 Creatinine 0.6 L Est GFR ( Amer) > 60 Est GFR (Non-Af Amer) > 60 POC Glucose (mg/dL) 200 H Random Glucose 237 H D Calcium 8.9 Total Bilirubin AST ALT Alkaline Phosphatase Total Creatine Kinase CK-MB (Mass) Troponin I Total Protein Albumin Globulin Albumin/Globulin Ratio Lipase Urine Color Urine Clarity Urine pH Ur Specific [place] Urine Protein Urine Glucose (UA) Urine Ketones Urine Blood Urine Nitrate Urine Bilirubin Urine Urobilinogen Ur Leukocyte Esterase Urine WBC (Auto) Urine RBC (Auto) Urine Bacteria Hyaline Casts Urine Opiates Screen Urine Methadone Screen Ur Barbiturates Screen Ur Phencyclidine Scrn Ur Amphetamines Screen U Benzodiazepines Scrn U Oth Cocaine Metabols U Cannabinoids Screen Assessment & Plan - Assessment and Plan (Free Text) Assessment: 43 year old male with PMH of distal esophageal stricture s/p G-tube placement 06/23/18 in setting of PUD (esophageal, gastric, duodenal) on EGDs November 2014 and polysubstance Abuse over ten years (EtOH/cocaine/heroin/benzodiazepines/tobacco), alcoholic pancreatitis 06/2018, Diabetes, and HTN presenting with nausea vomiting, abd pain Prior EGD 06/17/2018 with repeat on 06/18 with pediatric scope but unable to traverse esophageal stricture at 30cm from incisors, negative for malignancy/HSV/CMV on pathology, LAGD esophagitis 15-35cm from incisors, and H. pylori negative gastritis. No prior colonoscopy. Acute on chronic abd pain Cellulitis of the abd around gastric tube site Esophageal distal Stricture Hx of ETOH and polypsubstance abuse Transaminitis etiology unclear; suspect alcoholic hepatitis vs rhabo Plan: -keep NPO -would recommend consulting Dr. Fitzpatrick for possible cellulitis around gastric tube site -continue Zosyn -will plan for EGD with dilatation tomorrow -keep NPO, no feeds overnight after midnight okay to start glycerna feeds now -monitor LFTs; no indication for steroids -consulted on avoiding ETOH and illicit drugs -recommend PT/PTT D/W Dr. Massey <Maddi Massey - Last Filed: 08/19/18 14:17> Meds - Medications Medications: Current Medications Piperacillin Sod/Tazobactam Sod (Zosyn 3.375 Gm Iv Premix) 3.375 gm in 50 mls @ 100 mls/hr IVPB Q6H LUCILA; Protocol Last Admin: 08/19/18 13:09 Dose: 100 mls/hr Sodium Chloride (Sodium Chloride 0.9%) 1,000 mls @ 100 mls/hr IV .Q10H LUCILA Last Admin: 08/19/18 13:09 Dose: 100 mls/hr Morphine Sulfate (Morphine) 2 mg IVP Q6H PRN PRN Reason: Pain, severe (8-10) Last Admin: 08/19/18 11:05 Dose: 2 mg Neomycin/Polymyxin/Bacitracin (Neosporin Triple Antibiotic Oint) 0 gm TOP BID LUCILA Nystatin (Nystop Topical Powder) 1 applic TOP BID LUCILA Ondansetron HCl (Zofran Inj) 4 mg IVP Q6H PRN PRN Reason: Nausea/Vomiting Pantoprazole Sodium (Protonix Inj) 40 mg IVP DAILY LUCILA Last Admin: 08/19/18 10:58 Dose: 40 mg Results - Vital Signs Recent Vital Signs: Last Vital Signs Temp 97.4 F L 08/19/18 07:00 Pulse 60 08/19/18 07:00 Resp 20 08/19/18 07:00 BP 156/99 H 08/19/18 07:00 Pulse Ox 100 08/19/18 07:00 - Labs Result Diagrams: 08/18/18 14:43 08/19/18 11:32 Labs: Laboratory Results - last 24 hr 08/18/18 08/18/18 08/18/18 14:43 14:43 15:32 WBC 14.2 H RBC 5.31 Hgb 14.1 D Hct 43.9 MCV 82.7 MCH 26.5 L MCHC 32.0 L RDW 19.8 H Plt Count 345 D MPV 8.3 Neut % (Auto) 86.8 H Lymph % (Auto) 10.2 L [place] % (Auto) 2.5 Eos % (Auto) 0.1 Baso % (Auto) 0.4 Neut # (Auto) 12.3 H Lymph # (Auto) 1.4 [place] # (Auto) 0.4 Eos # (Auto) 0.0 Baso # (Auto) 0.1 Sodium 148 Potassium 3.1 L Chloride 103 Carbon Dioxide 26 Anion Gap 22 H BUN 18 Creatinine 0.9 Est GFR ( Amer) > 60 Est GFR (Non-Af Amer) > 60 POC Glucose (mg/dL) Random Glucose 397 H D Calcium 9.8 Phosphorus Magnesium Total Bilirubin 1.5 H AST 119 H D ALT 91 H D Alkaline Phosphatase 93 Total Creatine Kinase 3029 H CK-MB (Mass) 4.61 H Troponin I < 0.0120 Total Protein 7.4 Albumin 4.3 Globulin 3.1 Albumin/Globulin Ratio 1.4 Lipase 29 Urine Color Urine Clarity Urine pH Ur Specific [place] Urine Protein Urine Glucose (UA) Urine Ketones Urine Blood Urine Nitrate Urine Bilirubin Urine Urobilinogen Ur Leukocyte Esterase Urine WBC (Auto) Urine RBC (Auto) Urine Bacteria Hyaline Casts Urine Opiates Screen Negative Urine Methadone Screen Negative Ur Barbiturates Screen Negative Ur Phencyclidine Scrn Negative Ur Amphetamines Screen Negative U Benzodiazepines Scrn Negative U Oth Cocaine Metabols Negative U Cannabinoids Screen Negative 08/18/18 08/19/18 08/19/18 15:32 02:09 06:59 WBC RBC Hgb Hct MCV MCH MCHC RDW Plt Count MPV Neut % (Auto) Lymph % (Auto) [place] % (Auto) Eos % (Auto) Baso % (Auto) Neut # (Auto) Lymph # (Auto) [place] # (Auto) Eos # (Auto) Baso # (Auto) Sodium Potassium Chloride Carbon Dioxide Anion Gap BUN Creatinine Est GFR ( Amer) Est GFR (Non-Af Amer) POC Glucose (mg/dL) 193 H 233 H Random Glucose Calcium Phosphorus Magnesium Total Bilirubin AST ALT Alkaline Phosphatase Total Creatine Kinase CK-MB (Mass) Troponin I Total Protein Albumin Globulin Albumin/Globulin Ratio Lipase Urine Color Yellow Urine Clarity Hazy Urine pH 6.5 Ur Specific [place] > 1.030 H Urine Protein 100 Urine Glucose (UA) 250 Urine Ketones >80 Urine Blood Trace Urine Nitrate Negative Urine Bilirubin Moderate Urine Urobilinogen 1.0 Ur Leukocyte Esterase Negative Urine WBC (Auto) 8 H Urine RBC (Auto) 4 H Urine Bacteria Rare Hyaline Casts >20 H Urine Opiates Screen Urine Methadone Screen Ur Barbiturates Screen Ur Phencyclidine Scrn Ur Amphetamines Screen U Benzodiazepines Scrn U Oth Cocaine Metabols U Cannabinoids Screen 08/19/18 08/19/18 11:05 11:32 WBC RBC Hgb Hct MCV MCH MCHC RDW Plt Count MPV Neut % (Auto) Lymph % (Auto) [place] % (Auto) Eos % (Auto) Baso % (Auto) Neut # (Auto) Lymph # (Auto) [place] # (Auto) Eos # (Auto) Baso # (Auto) Sodium 142 Potassium 3.0 L Chloride 104 Carbon Dioxide 33 H Anion Gap 8 L BUN 17 Creatinine 0.6 L Est GFR ( Amer) > 60 Est GFR (Non-Af Amer) > 60 POC Glucose (mg/dL) 200 H Random Glucose 237 H D Calcium 8.9 Phosphorus 3.0 Magnesium 1.6 Total Bilirubin AST ALT Alkaline Phosphatase Total Creatine Kinase CK-MB (Mass) Troponin I Total Protein Albumin Globulin Albumin/Globulin Ratio Lipase Urine Color Urine Clarity Urine pH Ur Specific [place] Urine Protein Urine Glucose (UA) Urine Ketones Urine Blood Urine Nitrate Urine Bilirubin Urine Urobilinogen Ur Leukocyte Esterase Urine WBC (Auto) Urine RBC (Auto) Urine Bacteria Hyaline Casts Urine Opiates Screen Urine Methadone Screen Ur Barbiturates Screen Ur Phencyclidine Scrn Ur Amphetamines Screen U Benzodiazepines Scrn U Oth Cocaine Metabols U Cannabinoids Screen Attending/Attestation - Attestation I have personally seen and examined this patient.: Yes I have fully participated in the care of the patient.: Yes I have reviewed all pertinent clinical information: Yes Notes (Text): 08/19/18 14:03 I have seen and examined the patient with the GI fellow. In brief, this is a 43 yo M with PMH of EtOH and polysubstance abuse, DM, HTN and chronic distal esophageal stricture s/p G tube placement 06/23/18 with most recent hospitalization for n/v and EGD 07/23/18 done showing severe benign appearing stenosis - starting at 28 cm dilated with CRE balloon up to 8 mm - now returns for n/v and pain around PEG site. Pt states he was able to tolerate clear li quids for a few days after dilation, but then was not able to tolerate PO. Did not come for f/u as an outpatient as his insurance was not covered at the office. Currently, has not had any PO. Some pain around PEG site. General: thin, older appearing than stated age Abd: soft, nt, nd, erythema and warmth around PEG insertion site, moderate tenderness, able to rotate PEG tube Plan: -ok to resume tube feeds -npo after midnight -plan for EGD with repeat dilation tmrw -mildly elevated LFTs --> would just monitor for now -likely with some cellulitis around PEG site --> would send culture -on Zosyn currently, can probably narrow to Unasyn 3 gm IV q6hrs after culture -f/u wound care recs 08/19/18 14:16
[2018-08-19] MEDS: Sodium Chloride 0.9% 1,000 ML IV SCH ×2 (13:09→22:22)
[2018-08-19 14:15] LABS: INR 1.1; PROTHROMBIN TIME 12.2 SECONDS (9.7-12.2)
[2018-08-19] MEDS ORDERED: Potassium Chloride 20 mEq/15 ml LIQ UD PO SCH (17:00)
[2018-08-19] MEDS: Potassium Chloride 20 mEq/15 ml LIQ UD GT SCH ×2 (17:33→22:21)
[2018-08-19] MEDS: Bacitracin/Neomycin/Polymyxin Oint(30GM) TOP SCH (17:41)
--- NOTE | 2018-08-19 18:22 | CP.PCM.PN ---
Subjective - Date & Time of Evaluation Date of Evaluation: 08/19/18 Time of Evaluation: 08:00 - Subjective Subjective: patient seen and examined today no nausea no vomitng no fever no diarrhea no sob Objective - Vital Signs/Intake and Output Vital Signs (last 24 hours): Temp Pulse Resp BP Pulse Ox 97.9 F 64 20 118/75 97 08/19/18 15:30 08/19/18 15:30 08/19/18 15:30 08/19/18 15:30 08/19/18 15:30 - Medications Medications: Current Medications Piperacillin Sod/Tazobactam Sod (Zosyn 3.375 Gm Iv Premix) 3.375 gm in 50 mls @ 100 mls/hr IVPB Q6H [facility]; Protocol Last Admin: 08/19/18 16:37 Dose: 100 mls/hr Sodium Chloride (Sodium Chloride 0.9%) 1,000 mls @ 100 mls/hr IV .Q10H [facility] Last Admin: 08/19/18 13:09 Dose: 100 mls/hr Morphine Sulfate (Morphine) 2 mg IVP Q6H PRN PRN Reason: Pain, severe (8-10) Last Admin: 08/19/18 16:38 Dose: 2 mg Neomycin/Polymyxin/Bacitracin (Neosporin Triple Antibiotic Oint) 0 gm TOP BID [facility] Last Admin: 08/19/18 17:41 Dose: 1 applic Nystatin (Nystop Topical Powder) 1 applic TOP BID [facility] Last Admin: 08/19/18 17:40 Dose: 1 applic Ondansetron HCl (Zofran Inj) 4 mg IVP Q6H PRN PRN Reason: Nausea/Vomiting Pantoprazole Sodium (Protonix Inj) 40 mg IVP DAILY [facility] Last Admin: 08/19/18 10:58 Dose: 40 mg Potassium Chloride (Potassium Chloride Oral Soln) 40 meq GT Q4H [facility] Stop: 08/19/18 21:01 Last Admin: 08/19/18 17:33 Dose: 40 meq - Labs Labs: 08/18/18 14:43 08/19/18 11:32 PT 12.2 SECONDS (9.7-12.2) 08/19/18 14:00 INR 1.1 08/19/18 14:00 - Constitutional Appears: Well - Head Exam Head Exam: ATRAUMATIC, NORMAL INSPECTION, NORMOCEPHALIC - Eye Exam Eye Exam: EOMI, Normal appearance, PERRL Pupil Exam: NORMAL ACCOMODATION, PERRL - ENT Exam ENT Exam: Mucous Membranes Moist, Normal Exam - Neck Exam Neck Exam: Full ROM, Normal Inspection. absent: Lymphadenopathy - Respiratory Exam Respiratory Exam: Decreased Breath Sounds - Cardiovascular Exam Cardiovascular Exam: REGULAR RHYTHM, +S1, +S2 - GI/Abdominal Exam GI & Abdominal Exam: Soft, Diminished Bowel Sounds - Rectal Exam Rectal Exam: Deferred - Neurological Exam Neurological Exam: Oriented x3 Assessment and Plan (1) Abdominal pain Status: Acute (2) Cellulitis Status: Acute (3) Dehydration Status: Acute (4) Hyperglycemia Status: Acute (5) Airway compromise Status: Acute (6) Alcohol abuse Status: Acute (7) Alcohol intoxication Status: Acute (8) Alcohol use disorder, severe, dependence Status: Acute (9) Alcohol withdrawal Status: Acute (10) Alcoholic pancreatitis Status: Acute (11) Colitis Status: Acute (12) DKA (diabetic ketoacidoses) Status: Acute (13) Esophagitis Status: Acute (14) Failure to thrive Status: Acute (15) Hypokalemia Status: Acute (16) Hyponatremia Status: Acute (17) Obtunded Status: Acute (18) Seizure Status: Acute (19) Throat pain in adult Status: Acute (20) Upper gastrointestinal hemorrhage Status: Acute (21) Vomiting Status: Acute (22) Weakness Status: Acute - Assessment and Plan (Free Text) Plan: medications reviewed morphine neosporin nystop topical powder potassium chloride protonix inj sodium chloride zofran zosyn labs and vitals reviewed
--- NOTE | 2018-08-19 20:43 | CARD ---
APPROVED REPORT Date of service: 08/18/2018 EKG Measurement Heart [id number] <Conclusion> Sinus tachycardia Possible Left atrial enlargement Borderline ECG
[2018-08-19] MEDS ORDERED: Potassium Chloride 20 mEq/15 ml LIQ UD GT SCH (22:30)
[2018-08-20] MEDS: Piperacill/Tazo 3.375gm in Dex 3.375 GM/50 ML BAG IVPB SCH ×5 (04:30→23:26)
[2018-08-20 07:51] LABS: BASO % 0.4 % (0.0-2.0); EOS # 0.3 K/uL (0.0-0.7); EOS % 3.2 % (0.0-4.0); LYMPH # 3.1 K/uL (1.0-4.3); LYMPH % 33.9 % (20.0-40.0); MEAN CELL VOLUME 82.6 fL (80.0-94.0); MEAN CORPUSCULAR HGB CONC 31.4 g/dL (33.0-37.0); MEAN PLATELET VOLUME 8.2 fL (7.2-11.7); MONO # 0.2 K/uL (0.0-0.8); MONO % 2.1 % (0.0-10.0); NEUT # 5.5 K/uL (1.8-7.0); NEUT % 60.4 % (50.0-75.0); NRBC % 0.1 % (0.0-2.0); RBC 4.11 Mil/uL (4.40-5.90); RED CELL DISTRIBUTION WIDTH 18.2 % (11.5-14.5); WHITE BLOOD COUNT 9.1 K/uL (4.8-10.8)
[2018-08-20 07:59] LABS: HEMOGLOBIN 10.7 g/dL (12.0-18.0)
[2018-08-20 08:09] LABS: ALB/GLOB RATIO 1.2 (1.0-2.1); ALBUMIN 2.9 g/dL (3.5-5.0); ALT/SGPT 47 U/L (21-72); AST/SGOT 40 U/L (17-59); BLOOD UREA NITROGEN 9 mg/dL (9-20); GFR NON-AFRICAN AMERICAN > 60
[2018-08-20] MEDS: Sodium Chloride 0.9% 1,000 ML IV SCH ×3 (08:20→17:30)
[2018-08-20] MEDS: Bacitracin/Neomycin/Polymyxin Oint(30GM) TOP SCH ×2 (10:06→18:36)
[2018-08-20] MEDS ORDERED: Propofol 10 mg/ml Inj (20 ML) ONE ×3 (13:03→14:23)
[2018-08-20] MEDS ORDERED: Midazolam 2 MG/2 ML VIAL ONE (13:03)
[2018-08-20] MEDS ORDERED: Phenylephrine 10 mg/ml Inj ONE (14:00)
[2018-08-20] MEDS ORDERED: Iohexol 240 200 ML ONE ×2 (15:34→16:00)
[2018-08-20] MEDS ORDERED: Iodixanol 320 mg/ml 150 ml Bottle IV ONE (16:00)
--- NOTE | 2018-08-20 16:49 | RAD ---
Date of service: 08/20/2018 HISTORY: Dysphagia. COMPARISON: 07/21/2018. TECHNIQUE: Single contrast esophagogram was performed with water-soluble contrast. FINDINGS: Patient tolerated procedure well. ESOPHAGUS: The smooth passage of contrast from the esophagus into the stomach. There is linear and lobular extraluminal leakage of contrast along the left lateral wall and posteriorly at the site of clips. HIATAL HERNIA: None demonstrated. OTHER FINDINGS: The total fluoroscopic time was 1.1 minute. IMPRESSION: Extraluminal leakage of contrast from the left lateral wall of the mid esophagus also extending posteriorly at the site of the clips concerning for esophageal perforation. Critical findings were discussed with Dr. Song Gill on 08/20/2018 at 4.44 p.m.
--- NOTE | 2018-08-20 18:36 | CP.PCM.CON ---
History of Present Illness - History of Present Illness History of Present Illness: Thoracic Surgery Consult Note- Dr. Ruiz Reason for Consult: peptic ulcer stricture s/p dilatation concern for perforation 43M pmhx significant for etoh abuse, esophageal stricture s/p dilatation 07/2018 to 8mm using pediatric scope, and s/p G-Tube placement 06/2018, admitted for EGD and dilatation. During Dilatation today up to 10cm there was a false tract was made however remained intraluminal. During examination, patient was resting comfortably. Denies chest pain, shortness of breath, nausea, vomiting. G-tube in place. No palpable subcutaneous emphysema. Current Vitals: 98.2 66 134/92 100%RA PMH: stated above PSH: G-tube placement, 4 total endoscopies. ALL: NKDA SocialHx: endorses sobriety since discharge 06/06/18- prior 3-4 pints vodka daily, beer daily (at least 10 years) , range tobacco use 1/2-2ppd x 30 years to illicit drug abuse- cocaine, heroin, opiates, BZDs Review of Systems - Review of Systems All systems: reviewed and no additional remarkable complaints except - Constitutional Constitutional: As Per HPI Past Patient History - Infectious Disease Hx of Infectious Diseases: None - Tetanus Immunizations Tetanus Immunization: Unknown - Past Medical History & Family History Past Medical History?: Yes - Past Social History Smoking Status: Heavy Smoker > 10 Cigarettes Daily - CARDIAC Hx Cardiac Disorders: No Hx Hypertension: No - PULMONARY Hx Tuberculosis: No Other/Comment: Currently smokes 2 ppd - NEUROLOGICAL Hx Neurological Disorder: No Hx Seizures: No - HEENT Hx HEENT Problems: No - RENAL Hx Chronic Kidney Disease: No - ENDOCRINE/METABOLIC Hx Endocrine Disorders: No Hx Hyperthyroidism: No Hx Hypothyroidism: No - HEMATOLOGICAL/ONCOLOGICAL Hx Human Immunodeficiency Virus (HIV): No - INTEGUMENTARY Hx Dermatological Problems: No - MUSCULOSKELETAL/RHEUMATOLOGICAL Hx Falls: Yes - GASTROINTESTINAL Hx Gastrointestinal Disorders: Yes Hx Gastritis: Yes Hx Pancreatitis: Yes - GENITOURINARY/GYNECOLOGICAL Hx Genitourinary Disorders: No Hx Sexually Transmitted Disorders: No - PSYCHIATRIC Hx Substance Use: Yes - SURGICAL HISTORY Hx Surgeries: No - ANESTHESIA Hx Anesthesia: Yes Hx Anesthesia Reactions: No Hx Malignant Hyperthermia: No Has any member of the family had a problem w/ anesthesia?: No Meds Allergies/Adverse Reactions: Allergies Allergy/AdvReac Type Severity Reaction Status Date / Time No Known Allergies Allergy Verified 07/20/18 10:47 - Medications Medications: Current Medications Piperacillin Sod/Tazobactam Sod (Zosyn 3.375 Gm Iv Premix) 3.375 gm in 50 mls @ 100 mls/hr IVPB Q6H [facility]; Protocol Last Admin: 08/20/18 16:35 Dose: 100 mls/hr Sodium Chloride (Sodium Chloride 0.9%) 1,000 mls @ 100 mls/hr IV .Q10H [facility] Last Admin: 08/20/18 09:48 Dose: 100 mls/hr Morphine Sulfate (Morphine) 2 mg IVP Q6H PRN PRN Reason: Pain, severe (8-10) Last Admin: 08/20/18 16:28 Dose: 2 mg Neomycin/Polymyxin/Bacitracin (Neosporin Triple Antibiotic Oint) 0 gm TOP BID [facility] Last Admin: 08/20/18 10:06 Dose: 1 applic Nystatin (Nystop Topical Powder) 1 applic TOP BID [facility] Last Admin: 08/20/18 10:05 Dose: 1 applic Ondansetron HCl (Zofran Inj) 4 mg IVP Q6H PRN PRN Reason: Nausea/Vomiting Last Admin: 08/20/18 16:32 Dose: 4 mg Pantoprazole Sodium (Protonix Inj) 40 mg IVP BID [facility] Last Admin: 08/20/18 18:20 Dose: 40 mg Physical Exam - Eye Exam Eye Exam: EOMI. absent: Scleral icterus - ENT Exam ENT Exam: Mucous Membranes Moist - Respiratory Exam Respiratory Exam: NORMAL BREATHING PATTERN. absent: Accessory Muscle Use, Respiratory Distress Additional comments: No palpable crepitus - Cardiovascular Exam Cardiovascular Exam: REGULAR RHYTHM. absent: Bradycardia, Tachycardia - GI/Abdominal Exam GI & Abdominal Exam: Soft. absent: Rebound, Rigid, Tenderness Additional comments: G-tube in place - Neurological Exam Neurological exam: Alert, Oriented x3 - Skin Skin Exam: Intact, Warm Results - Vital Signs Recent Vital Signs: Last Vital Signs Temp 97.4 F L 08/20/18 15:13 Pulse 66 08/20/18 15:13 Resp 20 08/20/18 15:13 BP 122/91 H 08/20/18 15:13 Pulse Ox 100 08/20/18 15:13 - Labs Result Diagrams: 08/20/18 18:35 08/20/18 18:35 Labs: Laboratory Results - last 24 hr 08/19/18 08/20/18 08/20/18 21:03 07:13 07:29 WBC 9.1 RBC 4.11 L Hgb 10.7 L D Hct 33.9 L MCV 82.6 MCH 26.0 L MCHC 31.4 L RDW 18.2 H Plt Count 188 D MPV 8.2 Neut % (Auto) 60.4 Lymph % (Auto) 33.9 [place] % (Auto) 2.1 Eos % (Auto) 3.2 Baso % (Auto) 0.4 Neut # (Auto) 5.5 Lymph # (Auto) 3.1 [place] # (Auto) 0.2 Eos # (Auto) 0.3 Baso # (Auto) 0.0 Sodium Potassium Chloride Carbon Dioxide Anion Gap BUN Creatinine Est GFR ( Amer) Est GFR (Non-Af Amer) POC Glucose (mg/dL) 245 H 175 H Random Glucose Calcium Magnesium Total Bilirubin AST ALT Alkaline Phosphatase Total Protein Albumin Globulin Albumin/Globulin Ratio Blood Type Antibody Screen 08/20/18 08/20/18 08/20/18 07:29 11:17 12:55 WBC RBC Hgb Hct MCV MCH MCHC RDW Plt Count MPV Neut % (Auto) Lymph % (Auto) [place] % (Auto) Eos % (Auto) Baso % (Auto) Neut # (Auto) Lymph # (Auto) [place] # (Auto) Eos # (Auto) Baso # (Auto) Sodium 133 Potassium 3.9 Chloride 101 Carbon Dioxide 31 H Anion Gap 6 L BUN 9 Creatinine 0.5 L Est GFR ( Amer) > 60 Est GFR (Non-Af Amer) > 60 POC Glucose (mg/dL) 166 H Random Glucose 178 H D Calcium 8.0 L Magnesium 1.4 L Total Bilirubin 0.9 AST 40 ALT 47 Alkaline Phosphatase 59 Total Protein 5.3 L Albumin 2.9 L D Globulin 2.4 Albumin/Globulin Ratio 1.2 Blood Type AB POSITIVE Antibody Screen Negative 08/20/18 16:24 WBC RBC Hgb Hct MCV MCH MCHC RDW Plt Count MPV Neut % (Auto) Lymph % (Auto) [place] % (Auto) Eos % (Auto) Baso % (Auto) Neut # (Auto) Lymph # (Auto) [place] # (Auto) Eos # (Auto) Baso # (Auto) Sodium Potassium Chloride Carbon Dioxide Anion Gap BUN Creatinine Est GFR ( Amer) Est GFR (Non-Af Amer) POC Glucose (mg/dL) 153 H Random Glucose Calcium Magnesium Total Bilirubin AST ALT Alkaline Phosphatase Total Protein Albumin Globulin Albumin/Globulin Ratio Blood Type Antibody Screen Assessment & Plan - Assessment and Plan (Free Text) Assessment: 43M w/ esophageal stricture, s/p Dilatation, possible perforation Plan: - NPO - STAT xray now, repeat Xray in AM - monitor vitals closely - Gastric tube to suction - IV Abx - serial exams - discussed w/ Dr. Ruiz Thoracic Surgery attending PGY2
[2018-08-20 18:40] LABS: BASO # 0.1 K/uL (0.0-0.2); BASO % 0.4 % (0.0-2.0); EOS # 0.3 K/uL (0.0-0.7); EOS % 2.8 % (0.0-4.0); HEMOGLOBIN 11.6 g/dL (12.0-18.0); LYMPH # 3.6 K/uL (1.0-4.3); LYMPH % 30.7 % (20.0-40.0); MEAN CORPUSCULAR HEMOGLOBIN 26.2 pg (27.0-31.0); MEAN PLATELET VOLUME 7.8 fL (7.2-11.7); MONO # 0.3 K/uL (0.0-0.8); MONO % 2.6 % (0.0-10.0); NEUT # 7.4 K/uL (1.8-7.0); NEUT % 63.5 % (50.0-75.0); RBC 4.43 Mil/uL (4.40-5.90); WHITE BLOOD COUNT 11.6 K/uL (4.8-10.8)
[2018-08-20 18:51] LABS: BLOOD UREA NITROGEN 8 mg/dL (9-20); CALCIUM 8.7 mg/dl (8.6-10.4); GFR NON-AFRICAN AMERICAN > 60
--- NOTE | 2018-08-20 19:08 | CP.PCM.PN ---
Subjective - Date & Time of Evaluation Date of Evaluation: 08/20/18 - Subjective Subjective: patient seen and examined today no nausea no vomiting no dizziness no shortness of breath no fever Objective - Vital Signs/Intake and Output Vital Signs (last 24 hours): Temp Pulse Resp BP Pulse Ox 97.4 F L 66 20 122/91 H 100 08/20/18 15:13 08/20/18 15:13 08/20/18 15:13 08/20/18 15:13 08/20/18 15:13 Intake and Output: 08/20/18 08/21/18 18:59 06:59 Intake Total 650 Output Total 800 Balance -150 - Medications Medications: Current Medications Piperacillin Sod/Tazobactam Sod (Zosyn 3.375 Gm Iv Premix) 3.375 gm in 50 mls @ 100 mls/hr IVPB Q6H [facility]; Protocol Last Admin: 08/20/18 16:35 Dose: 100 mls/hr Sodium Chloride (Sodium Chloride 0.9%) 1,000 mls @ 100 mls/hr IV .Q10H [facility] Last Admin: 08/20/18 17:30 Dose: 100 mls/hr Fluconazole (Diflucan Iv 200 Mg/100 Ml Ns) 100 mls @ 100 mls/hr IVPB Q24H [facility]; Protocol Morphine Sulfate (Morphine) 2 mg IVP Q6H PRN PRN Reason: Pain, severe (8-10) Last Admin: 08/20/18 16:28 Dose: 2 mg Neomycin/Polymyxin/Bacitracin (Neosporin Triple Antibiotic Oint) 0 gm TOP BID [facility] Last Admin: 08/20/18 18:36 Dose: 1 applic Nystatin (Nystop Topical Powder) 1 applic TOP BID [facility] Last Admin: 08/20/18 18:36 Dose: 1 applic Ondansetron HCl (Zofran Inj) 4 mg IVP Q6H PRN PRN Reason: Nausea/Vomiting Last Admin: 08/20/18 16:32 Dose: 4 mg Pantoprazole Sodium (Protonix Inj) 40 mg IVP BID [facility] Last Admin: 08/20/18 18:20 Dose: 40 mg - Labs Labs: 08/20/18 18:35 08/20/18 18:35 PT 12.2 SECONDS (9.7-12.2) 08/19/18 14:00 INR 1.1 08/19/18 14:00 - Constitutional Appears: Well - Head Exam Head Exam: ATRAUMATIC, NORMAL INSPECTION, NORMOCEPHALIC - Eye Exam Eye Exam: EOMI, Normal appearance, PERRL Pupil Exam: NORMAL ACCOMODATION, PERRL - ENT Exam ENT Exam: Mucous Membranes Moist, Normal Exam - Neck Exam Neck Exam: Full ROM, Normal Inspection. absent: Lymphadenopathy - Respiratory Exam Respiratory Exam: Decreased Breath Sounds - Cardiovascular Exam Cardiovascular Exam: REGULAR RHYTHM, +S1, +S2 - GI/Abdominal Exam GI & Abdominal Exam: Soft, Diminished Bowel Sounds - Rectal Exam Rectal Exam: Deferred - Neurological Exam Neurological Exam: Oriented x3 Assessment and Plan (1) Abdominal pain Status: Acute (2) Cellulitis Status: Acute (3) Dehydration Status: Acute (4) Hyperglycemia Status: Acute (5) Airway compromise Status: Acute (6) Alcohol abuse Status: Acute (7) Alcohol intoxication Status: Acute (8) Alcohol use disorder, severe, dependence Status: Acute (9) Alcohol withdrawal Status: Acute (10) Alcoholic pancreatitis Status: Acute (11) Colitis Status: Acute (12) DKA (diabetic ketoacidoses) Status: Acute (13) Esophagitis Status: Acute (14) Failure to thrive Status: Acute (15) Hypokalemia Status: Acute (16) Hyponatremia Status: Acute (17) Obtunded Status: Acute (18) Seizure Status: Acute (19) Throat pain in adult Status: Acute (20) Upper gastrointestinal hemorrhage Status: Acute (21) Vomiting Status: Acute (22) Weakness Status: Acute - Assessment and Plan (Free Text) Plan: morphine neosporin nystop topical powder potassium chloride protonix inj sodium chloride zofran zosyn medications reviewed labs reviewed vitals reviewed
[2018-08-20] MEDS: Fluconazole IV 200mg/100 ml NS 100 ML IVPB SCH (21:07)
[2018-08-21] MEDS: Sodium Chloride 0.9% 1,000 ML IV SCH ×3 (02:36→23:22)
[2018-08-21] MEDS: Piperacill/Tazo 3.375gm in Dex 3.375 GM/50 ML BAG IVPB SCH ×4 (03:00→21:47)
--- NOTE | 2018-08-21 08:30 | CP.PCM.PN ---
<Priscilla Gill - Last Filed: 08/21/18 08:34> Subjective - Date & Time of Evaluation Date of Evaluation: 08/21/18 Time of Evaluation: 07:00 - Subjective Subjective: PGY 5 GI Follow-up Pt seen and examined bedside Denies abd pain Denies any nausea, vomiting Denies any BM still has pain in the back and near PEG site ROS: 12 point ROS conducted, neg other than above Objective - Vital Signs/Intake and Output Vital Signs (last 24 hours): Temp Pulse Resp BP Pulse Ox 98.1 F 70 20 134/87 96 08/21/18 07:31 08/21/18 07:31 08/21/18 07:31 08/21/18 07:31 08/21/18 07:31 Intake and Output: 08/21/18 08/21/18 06:59 18:59 Intake Total 700 800 Output Total 925 1125 Balance -225 -325 - Medications Medications: Current Medications Piperacillin Sod/Tazobactam Sod (Zosyn 3.375 Gm Iv Premix) 3.375 gm in 50 mls @ 100 mls/hr IVPB Q6H [facility]; Protocol Last Admin: 08/21/18 03:00 Dose: 100 mls/hr Sodium Chloride (Sodium Chloride 0.9%) 1,000 mls @ 100 mls/hr IV .Q10H [facility] Last Admin: 08/21/18 02:36 Dose: 100 mls/hr Fluconazole (Diflucan Iv 200 Mg/100 Ml Ns) 100 mls @ 100 mls/hr IVPB Q24H [facility]; Protocol Last Admin: 08/20/18 21:07 Dose: 100 mls/hr Morphine Sulfate (Morphine) 2 mg IVP Q6H PRN PRN Reason: Pain, severe (8-10) Last Admin: 08/21/18 04:55 Dose: 2 mg Neomycin/Polymyxin/Bacitracin (Neosporin Triple Antibiotic Oint) 0 gm TOP BID [facility] Last Admin: 08/20/18 18:36 Dose: 1 applic Nystatin (Nystop Topical Powder) 1 applic TOP BID [facility] Last Admin: 08/20/18 18:36 Dose: 1 applic Ondansetron HCl (Zofran Inj) 4 mg IVP Q6H PRN PRN Reason: Nausea/Vomiting Last Admin: 08/21/18 04:43 Dose: 4 mg Pantoprazole Sodium (Protonix Inj) 40 mg IVP BID [facility] Last Admin: 08/20/18 18:20 Dose: 40 mg - Labs Labs: 08/20/18 18:35 08/20/18 18:35 PT 12.2 SECONDS (9.7-12.2) 08/19/18 14:00 INR 1.1 08/19/18 14:00 - Constitutional Appears: Non-toxic, No Acute Distress - Head Exam Head Exam: ATRAUMATIC, NORMOCEPHALIC - Eye Exam Eye Exam: Normal appearance - ENT Exam ENT Exam: Mucous Membranes Moist, Normal Exam - Neck Exam Neck Exam: Normal Inspection - Respiratory Exam Respiratory Exam: Clear to Ausculation Bilateral, NORMAL BREATHING PATTERN. absent: Rales, Rhonchi, Wheezes, Respiratory Distress - Cardiovascular Exam Cardiovascular Exam: REGULAR RHYTHM, +S1, +S2 - GI/Abdominal Exam GI & Abdominal Exam: Soft, Normal Bowel Sounds. absent: Distended, Firm, Guarding, Rigid, Tenderness, Organomegaly Additional comments: PEG site intavt, no induration or discharge; site still slightly erythemic - Extremities Exam Extremities Exam: absent: Joint Swelling, Pedal Edema - Neurological Exam Neurological Exam: Alert, Awake, Oriented x3 - Psychiatric Exam Psychiatric exam: Normal Affect, Normal Mood - Skin Skin Exam: Dry, Intact, Normal Color, Warm Assessment and Plan - Assessment and Plan (Free Text) Assessment: 43 year old male with PMH of distal esophageal stricture s/p G-tube placement 06/23/18 in setting of PUD (esophageal, gastric, duodenal) on EGDs November 2014 and polysubstance Abuse over ten years (EtOH/cocaine/heroin/benzodiazepines/tobacco), alcoholic pancreatitis 06/2018, Diabetes, and HTN presenting with nausea vomiting, abd pain S/P EGD w/ dilation: +gastritis; severe stonosis with fibrosis and friability noted in the distal esophagus Esophageal distal Stricture s/p dilation Esophageal tear w/ subsequent false lumen enclosed and intact no perforation Acute on chronic abd pain Cellulitis of the abd around gastric tube site Hx of ETOH and polypsubstance abuse Transaminitis etiology unclear; suspect alcoholic hepatitis vs rhabo Plan: -keep NPO -continue Zosyn -CT surgery on board -recommendation noted and appreciated -G-Tube to gravity -repeat CXR in the AM normal without noted subq air -hold feeds for now -monitor LFTs; no indication for steroids -consulted on avoiding ETOH and illicit drugs D/W Dr. Massey <Maddi Massey - Last Filed: 08/21/18 19:45> Objective - Vital Signs/Intake and Output Vital Signs (last 24 hours): Temp Pulse Resp BP Pulse Ox 98.4 F 96 H 20 130/90 97 08/21/18 16:00 08/21/18 16:00 08/21/18 16:00 08/21/18 16:00 08/21/18 16:00 Intake and Output: 08/21/18 08/22/18 18:59 06:59 Intake Total 1600 Output Total 2225 Balance -625 - Medications Medications: Current Medications Piperacillin Sod/Tazobactam Sod (Zosyn 3.375 Gm Iv Premix) 3.375 gm in 50 mls @ 100 mls/hr IVPB Q6H [facility]; Protocol Last Admin: 08/21/18 16:55 Dose: 100 mls/hr Sodium Chloride (Sodium Chloride 0.9%) 1,000 mls @ 100 mls/hr IV .Q10H [facility] Last Admin: 08/21/18 14:11 Dose: Not Given Fluconazole (Diflucan Iv 200 Mg/100 Ml Ns) 100 mls @ 100 mls/hr IVPB Q24H [facility]; Protocol Last Admin: 08/20/18 21:07 Dose: 100 mls/hr Morphine Sulfate (Morphine) 2 mg IVP Q6H PRN PRN Reason: Pain, severe (8-10) Last Admin: 08/21/18 16:53 Dose: 2 mg Neomycin/Polymyxin/Bacitracin (Neosporin Triple Antibiotic Oint) 0 gm TOP BID [facility] Last Admin: 08/21/18 18:03 Dose: 1 applic Nystatin (Nystop Topical Powder) 1 applic TOP BID [facility] Last Admin: 08/21/18 18:03 Dose: 1 applic Ondansetron HCl (Zofran Inj) 4 mg IVP Q6H PRN PRN Reason: Nausea/Vomiting Last Admin: 08/21/18 16:53 Dose: 4 mg Pantoprazole Sodium (Protonix Inj) 40 mg IVP BID [facility] Last Admin: 08/21/18 18:03 Dose: 40 mg - Labs Labs: 08/20/18 18:35 08/20/18 18:35 PT 12.2 SECONDS (9.7-12.2) 08/19/18 14:00 INR 1.1 08/19/18 14:00 Attending/Attestation - Attestation I have personally seen and examined this patient.: Yes I have fully participated in the care of the patient.: Yes I have reviewed all pertinent clinical information, including history, physical exam and plan: Yes Notes (Text): 08/21/18 19:43 I have seen and examined the patient with the GI fellow. Pt doing well. Wants to drink. CXR w/o effusion. Ok to resume tube feeds for now. Will hold off on clear liquids until tomorrow.
--- NOTE | 2018-08-21 09:30 | CP.PCM.PN ---
Subjective - Date & Time of Evaluation Date of Evaluation: 08/21/18 - Subjective Subjective: patient seen today no nausea no vomiting no diarrhea no vomiting no fever no sob no dizziness Objective - Vital Signs/Intake and Output Vital Signs (last 24 hours): Temp Pulse Resp BP Pulse Ox 98.1 F 70 20 134/87 96 08/21/18 07:31 08/21/18 07:31 08/21/18 07:31 08/21/18 07:31 08/21/18 07:31 Intake and Output: 08/21/18 08/21/18 06:59 18:59 Intake Total 700 800 Output Total 925 1125 Balance -225 -325 - Medications Medications: Current Medications Piperacillin Sod/Tazobactam Sod (Zosyn 3.375 Gm Iv Premix) 3.375 gm in 50 mls @ 100 mls/hr IVPB Q6H [facility]; Protocol Last Admin: 08/21/18 03:00 Dose: 100 mls/hr Sodium Chloride (Sodium Chloride 0.9%) 1,000 mls @ 100 mls/hr IV .Q10H [facility] Last Admin: 08/21/18 02:36 Dose: 100 mls/hr Fluconazole (Diflucan Iv 200 Mg/100 Ml Ns) 100 mls @ 100 mls/hr IVPB Q24H [facility]; Protocol Last Admin: 08/20/18 21:07 Dose: 100 mls/hr Morphine Sulfate (Morphine) 2 mg IVP Q6H PRN PRN Reason: Pain, severe (8-10) Last Admin: 08/21/18 04:55 Dose: 2 mg Neomycin/Polymyxin/Bacitracin (Neosporin Triple Antibiotic Oint) 0 gm TOP BID [facility] Last Admin: 08/20/18 18:36 Dose: 1 applic Nystatin (Nystop Topical Powder) 1 applic TOP BID [facility] Last Admin: 08/20/18 18:36 Dose: 1 applic Ondansetron HCl (Zofran Inj) 4 mg IVP Q6H PRN PRN Reason: Nausea/Vomiting Last Admin: 08/21/18 04:43 Dose: 4 mg Pantoprazole Sodium (Protonix Inj) 40 mg IVP BID [facility] Last Admin: 08/20/18 18:20 Dose: 40 mg - Labs Labs: 08/20/18 18:35 08/20/18 18:35 PT 12.2 SECONDS (9.7-12.2) 08/19/18 14:00 INR 1.1 08/19/18 14:00 - Constitutional Appears: Well - Head Exam Head Exam: ATRAUMATIC, NORMAL INSPECTION, NORMOCEPHALIC - Eye Exam Eye Exam: EOMI, Normal appearance, PERRL Pupil Exam: NORMAL ACCOMODATION, PERRL - ENT Exam ENT Exam: Mucous Membranes Moist, Normal Exam - Neck Exam Neck Exam: Full ROM, Normal Inspection. absent: Lymphadenopathy - Respiratory Exam Respiratory Exam: Decreased Breath Sounds - Cardiovascular Exam Cardiovascular Exam: REGULAR RHYTHM, +S1, +S2 - GI/Abdominal Exam GI & Abdominal Exam: Soft, Diminished Bowel Sounds - Rectal Exam Rectal Exam: Deferred - Neurological Exam Neurological Exam: Oriented x3 Assessment and Plan (1) Abdominal pain Status: Acute (2) Cellulitis Status: Acute (3) Dehydration Status: Acute (4) Hyperglycemia Status: Acute (5) Airway compromise Status: Acute (6) Alcohol abuse Status: Acute (7) Alcohol intoxication Status: Acute (8) Alcohol use disorder, severe, dependence Status: Acute (9) Alcohol withdrawal Status: Acute (10) Alcoholic pancreatitis Status: Acute (11) Colitis Status: Acute (12) DKA (diabetic ketoacidoses) Status: Acute (13) Esophagitis Status: Acute (14) Failure to thrive Status: Acute (15) Hypokalemia Status: Acute (16) Hyponatremia Status: Acute (17) Obtunded Status: Acute (18) Seizure Status: Acute (19) Throat pain in adult Status: Acute (20) Upper gastrointestinal hemorrhage Status: Acute (21) Vomiting Status: Acute (22) Weakness Status: Acute - Assessment and Plan (Free Text) Plan: medications reviewed labs reviewed vitals reviewed diflucan morphine neosporin nystop topical powder protonix inj sodium chloride zofran zosyn
[2018-08-21] MEDS: Bacitracin/Neomycin/Polymyxin Oint(30GM) TOP SCH ×2 (10:07→18:03)
--- NOTE | 2018-08-21 10:43 | RAD ---
HISTORY: s/p esoph dilation, R/O free air COMPARISON: Chest x-ray performed 08/21/18 TECHNIQUE: Chest PA and lateral, 2 views FINDINGS: LUNGS: Subtle probable atelectasis/infiltrate within the medial right lower/middle lobe. Persistent evidence of pneumomediastinum. Discoid/linear atelectasis on the left. Please note that chest x-ray has limited sensitivity for the detection of pulmonary masses. PLEURA: No significant pleural effusion identified. No definite pneumothorax . CARDIOVASCULAR: Heart size appears within normal limits. Atherosclerotic calcifications of the aorta. OSSEOUS STRUCTURES: Degenerative changes. Chronic appearing deformity of the left mid clavicle. Compression fracture deformity of the mid thoracic spine. VISUALIZED UPPER ABDOMEN: Unremarkable. OTHER FINDINGS: Clips project over the midthoracic spine. IMPRESSION: Persistent evidence of pneumomediastinum. Discoid/linear atelectasis on the left. Subtle probable atelectasis/infiltrate within the medial right lower/middle lobe.
--- NOTE | 2018-08-21 10:53 | RAD ---
HISTORY: r/o free air s/p Esoph. dilatation COMPARISON: Chest x-ray performed 08/18/18 TECHNIQUE: Chest, one view. FINDINGS: LUNGS: Subtle probable atelectasis/infiltrate within the medial right upper lobe. Persistent evidence of pneumomediastinum. Discoid/linear atelectasis on the left. PLEURA: No significant pleural effusion identified. No definite pneumothorax . CARDIOVASCULAR: Heart size appears within normal limits. Atherosclerotic calcifications of the aorta. OSSEOUS STRUCTURES: Degenerative changes. Chronic appearing deformity of the left mid clavicle. Compression fracture deformity of the mid thoracic spine. VISUALIZED UPPER ABDOMEN: Unremarkable. OTHER FINDINGS: None. IMPRESSION: Persistent evidence of pneumomediastinum. Discoid/linear atelectasis on the left. Subtle probable atelectasis/infiltrate within the medial right upper lobe.
--- NOTE | 2018-08-21 12:35 | CP.PCM.PN ---
Subjective - Date & Time of Evaluation Date of Evaluation: 08/21/18 Time of Evaluation: 12:33 - Subjective Subjective: Surgery: Dr. Anaya Patient doing well, reports appetite. Denies f/c/n/v/SOB or chest pain Objective - Vital Signs/Intake and Output Vital Signs (last 24 hours): Temp Pulse Resp BP Pulse Ox 98.1 F 70 20 134/87 96 08/21/18 07:31 08/21/18 07:31 08/21/18 07:31 08/21/18 07:31 08/21/18 07:31 Intake and Output: 08/21/18 08/21/18 06:59 18:59 Intake Total 700 800 Output Total 925 1125 Balance -225 -325 - Medications Medications: Current Medications Piperacillin Sod/Tazobactam Sod (Zosyn 3.375 Gm Iv Premix) 3.375 gm in 50 mls @ 100 mls/hr IVPB Q6H [facility]; Protocol Last Admin: 08/21/18 10:05 Dose: 100 mls/hr Sodium Chloride (Sodium Chloride 0.9%) 1,000 mls @ 100 mls/hr IV .Q10H [facility] Last Admin: 08/21/18 02:36 Dose: 100 mls/hr Fluconazole (Diflucan Iv 200 Mg/100 Ml Ns) 100 mls @ 100 mls/hr IVPB Q24H [facility]; Protocol Last Admin: 08/20/18 21:07 Dose: 100 mls/hr Morphine Sulfate (Morphine) 2 mg IVP Q6H PRN PRN Reason: Pain, severe (8-10) Last Admin: 08/21/18 10:46 Dose: 2 mg Neomycin/Polymyxin/Bacitracin (Neosporin Triple Antibiotic Oint) 0 gm TOP BID [facility] Last Admin: 08/21/18 10:07 Dose: 1 applic Nystatin (Nystop Topical Powder) 1 applic TOP BID [facility] Last Admin: 08/21/18 10:07 Dose: 1 applic Ondansetron HCl (Zofran Inj) 4 mg IVP Q6H PRN PRN Reason: Nausea/Vomiting Last Admin: 08/21/18 04:43 Dose: 4 mg Pantoprazole Sodium (Protonix Inj) 40 mg IVP BID [facility] Last Admin: 08/21/18 10:05 Dose: 40 mg - Labs Labs: 08/20/18 18:35 08/20/18 18:35 PT 12.2 SECONDS (9.7-12.2) 08/19/18 14:00 INR 1.1 08/19/18 14:00 - Constitutional Appears: Non-toxic, No Acute Distress - Head Exam Head Exam: ATRAUMATIC, NORMOCEPHALIC - Eye Exam Eye Exam: EOMI, Normal appearance - ENT Exam ENT Exam: Mucous Membranes Moist - Respiratory Exam Respiratory Exam: NORMAL BREATHING PATTERN. absent: Respiratory Distress - Cardiovascular Exam Cardiovascular Exam: REGULAR RHYTHM. absent: Tachycardia - GI/Abdominal Exam GI & Abdominal Exam: Soft. absent: Guarding, Tenderness, Rebound - Neurological Exam Neurological Exam: Alert, Awake - Psychiatric Exam Psychiatric exam: Normal Affect, Normal Mood - Skin Skin Exam: Dry, Normal Color, Warm Assessment and Plan - Assessment and Plan (Free Text) Assessment: 43 y/o male s/p EGD w/ esophageal perforation Plan: -no clinical signs of sepsis -CXR this am w/o effusion -ok to start CLD from surgical standpoint -no acute surgical intervention at this time -patient seen and examined with Dr. Anaya [facility] PGY4
[2018-08-21] MEDS: Fluconazole IV 200mg/100 ml NS 100 ML IVPB SCH (20:37)
[2018-08-22] MEDS: Piperacill/Tazo 3.375gm in Dex 3.375 GM/50 ML BAG IVPB SCH ×4 (04:20→21:14)
[2018-08-22 07:13] LABS: BASO % 0.4 % (0.0-2.0); EOS # 0.3 K/uL (0.0-0.7); HEMOGLOBIN 11.3 g/dL (12.0-18.0); LYMPH # 1.8 K/uL (1.0-4.3); LYMPH % 21.2 % (20.0-40.0); MEAN CELL VOLUME 81.4 fL (80.0-94.0); MEAN CORPUSCULAR HEMOGLOBIN 26.5 pg (27.0-31.0); MEAN CORPUSCULAR HGB CONC 32.6 g/dL (33.0-37.0); MEAN PLATELET VOLUME 7.9 fL (7.2-11.7); MONO # 0.4 K/uL (0.0-0.8); MONO % 4.3 % (0.0-10.0); NEUT % 71.1 % (50.0-75.0); RBC 4.26 Mil/uL (4.40-5.90); RED CELL DISTRIBUTION WIDTH 17.9 % (11.5-14.5); WHITE BLOOD COUNT 8.5 K/uL (4.8-10.8)
[2018-08-22 07:49] LABS: ALB/GLOB RATIO 1.3 (1.0-2.1); ALBUMIN 3.1 g/dL (3.5-5.0); ALT/SGPT 37 U/L (21-72); AST/SGOT 20 U/L (17-59); BLOOD UREA NITROGEN 7 mg/dL (9-20); CALCIUM 8.5 mg/dl (8.6-10.4); GFR NON-AFRICAN AMERICAN > 60
--- NOTE | 2018-08-22 08:19 | CP.PCM.PN ---
<Priscilla Gill - Last Filed: 08/22/18 09:37> Subjective - Date & Time of Evaluation Date of Evaluation: 08/22/18 Time of Evaluation: 07:00 - Subjective Subjective: PGY 5 GI Follow-up Pt states that his bronchitis like discomfort is improved back pain and and pain improved Denies any fever, chills or diaphoresis ROS:12 point ROS conducted, neg other than above Objective - Vital Signs/Intake and Output Vital Signs (last 24 hours): Temp Pulse Resp BP Pulse Ox 98 F 68 20 131/88 97 08/22/18 00:00 08/22/18 00:00 08/22/18 00:00 08/22/18 00:00 08/22/18 00:00 Intake and Output: 08/22/18 08/22/18 06:59 18:59 Intake Total 1800 Output Total 1550 Balance 250 - Medications Medications: Current Medications Piperacillin Sod/Tazobactam Sod (Zosyn 3.375 Gm Iv Premix) 3.375 gm in 50 mls @ 100 mls/hr IVPB Q6H [facility]; Protocol Last Admin: 08/22/18 04:20 Dose: 100 mls/hr Sodium Chloride (Sodium Chloride 0.9%) 1,000 mls @ 100 mls/hr IV .Q10H [facility] Last Admin: 08/21/18 23:22 Dose: 100 mls/hr Fluconazole (Diflucan Iv 200 Mg/100 Ml Ns) 100 mls @ 100 mls/hr IVPB Q24H [facility]; Protocol Last Admin: 08/21/18 20:37 Dose: 100 mls/hr Morphine Sulfate (Morphine) 2 mg IVP Q6H PRN PRN Reason: Pain, severe (8-10) Last Admin: 08/22/18 06:45 Dose: 2 mg Neomycin/Polymyxin/Bacitracin (Neosporin Triple Antibiotic Oint) 0 gm TOP BID [facility] Last Admin: 08/21/18 18:03 Dose: 1 applic Nystatin (Nystop Topical Powder) 1 applic TOP BID [facility] Last Admin: 08/21/18 18:03 Dose: 1 applic Ondansetron HCl (Zofran Inj) 4 mg IVP Q6H PRN PRN Reason: Nausea/Vomiting Last Admin: 08/22/18 06:45 Dose: 4 mg Pantoprazole Sodium (Protonix Inj) 40 mg IVP BID [facility] Last Admin: 08/21/18 18:03 Dose: 40 mg - Labs Labs: 08/22/18 07:02 08/22/18 07:02 PT 12.2 SECONDS (9.7-12.2) 08/19/18 14:00 INR 1.1 08/19/18 14:00 - Constitutional Appears: Non-toxic, No Acute Distress - Head Exam Head Exam: ATRAUMATIC, NORMOCEPHALIC - Eye Exam Eye Exam: Normal appearance - ENT Exam ENT Exam: Mucous Membranes Moist, Normal Exam - Neck Exam Neck Exam: Normal Inspection - Respiratory Exam Respiratory Exam: Clear to Ausculation Bilateral, NORMAL BREATHING PATTERN. absent: Rales, Rhonchi, Wheezes, Respiratory Distress - Cardiovascular Exam Cardiovascular Exam: REGULAR RHYTHM, +S1, +S2 - GI/Abdominal Exam GI & Abdominal Exam: Soft, Normal Bowel Sounds Additional comments: PEG site intact, some slight discharge around the site - Extremities Exam Extremities Exam: absent: Joint Swelling, Pedal Edema - Neurological Exam Neurological Exam: Alert, Awake, Oriented x3 - Psychiatric Exam Psychiatric exam: Normal Affect, Normal Mood - Skin Skin Exam: Normal Color, Warm Assessment and Plan - Assessment and Plan (Free Text) Assessment: 43 year old male with PMH of distal esophageal stricture s/p G-tube placement 06/23/18 in setting of PUD (esophageal, gastric, duodenal) on EGDs May/November 2014 and polysubstance Abuse over ten years (EtOH/cocaine/heroin/benzodiazepines/tobacco), alcoholic pancreatitis 06/2018, Diabetes, and HTN presenting with nausea vomiting, abd pain S/P EGD w/ dilation: +gastritis; severe stonosis with fibrosis and friability noted in the distal esophagus Esophageal distal Stricture s/p dilation Esophageal tear w/ subsequent false lumen enclosed and intact no perforation Acute on chronic abd pain Cellulitis of the abd around gastric tube site Hx of ETOH and polypsubstance abuse Transaminitis etiology unclear; suspect alcoholic hepatitis vs rhabo; improved Plan: -start clears -continue Zosyn -CT surgery on board -recommendation noted and appreciated -start bolus 2 can per meals feeds daily -repeat CXR in the AM normal without noted subq air -monitor LFTs; no indication for steroids -consulted on avoiding ETOH and illicit drugs D/W Dr. Massey <Maddi Massey - Last Filed: 08/22/18 10:34> Objective - Vital Signs/Intake and Output Vital Signs (last 24 hours): Temp Pulse Resp BP Pulse Ox 98.1 F 66 20 140/89 96 08/22/18 07:00 08/22/18 07:00 08/22/18 07:00 08/22/18 07:00 08/22/18 07:00 Intake and Output: 08/22/18 08/22/18 06:59 18:59 Intake Total 1800 Output Total 1550 Balance 250 - Medications Medications: Current Medications Piperacillin Sod/Tazobactam Sod (Zosyn 3.375 Gm Iv Premix) 3.375 gm in 50 mls @ 100 mls/hr IVPB Q6H [facility]; Protocol Last Admin: 08/22/18 04:20 Dose: 100 mls/hr Sodium Chloride (Sodium Chloride 0.9%) 1,000 mls @ 100 mls/hr IV .Q10H [facility] Last Admin: 08/21/18 23:22 Dose: 100 mls/hr Fluconazole (Diflucan Iv 200 Mg/100 Ml Ns) 100 mls @ 100 mls/hr IVPB Q24H [facility]; Protocol Last Admin: 08/21/18 20:37 Dose: 100 mls/hr Morphine Sulfate (Morphine) 2 mg IVP Q6H PRN PRN Reason: Pain, severe (8-10) Last Admin: 08/22/18 06:45 Dose: 2 mg Neomycin/Polymyxin/Bacitracin (Neosporin Triple Antibiotic Oint) 0 gm TOP BID [facility] Last Admin: 08/21/18 18:03 Dose: 1 applic Nystatin (Nystop Topical Powder) 1 applic TOP BID [facility] Last Admin: 08/21/18 18:03 Dose: 1 applic Ondansetron HCl (Zofran Inj) 4 mg IVP Q6H PRN PRN Reason: Nausea/Vomiting Last Admin: 08/22/18 06:45 Dose: 4 mg Pantoprazole Sodium (Protonix Inj) 40 mg IVP BID [facility] Last Admin: 08/21/18 18:03 Dose: 40 mg - Labs Labs: 08/22/18 07:02 08/22/18 07:02 PT 12.2 SECONDS (9.7-12.2) 08/19/18 14:00 INR 1.1 08/19/18 14:00 Attending/Attestation - Attestation I have personally seen and examined this patient.: Yes I have fully participated in the care of the patient.: Yes I have reviewed all pertinent clinical information, including history, physical exam and plan: Yes Notes (Text): 08/22/18 10:33 I have seen and examined the pt with the GI fellow. Appears to be doing well. Still with chronic abdominal and back pain. Tube feeds not started yesterday, but pt feels well today and had some Glucerna via PO. Notes no difficulty swallowing. Would advance to clear liquid diet via PO and Glucerna via G-tube.
[2018-08-22] MEDS: Sodium Chloride 0.9% 1,000 ML IV SCH (11:02)
[2018-08-22] MEDS: Bacitracin/Neomycin/Polymyxin Oint(30GM) TOP SCH ×2 (11:02→17:34)
--- NOTE | 2018-08-22 13:02 | CP.PCM.PN ---
Subjective - Date & Time of Evaluation Date of Evaluation: 08/22/18 - Subjective Subjective: patient seen and examined today no nausea no vomiting no fever no dizziness no shortness of breath no diarrhea Objective - Vital Signs/Intake and Output Vital Signs (last 24 hours): Temp Pulse Resp BP Pulse Ox 98.1 F 66 20 140/89 96 08/22/18 07:00 08/22/18 07:00 08/22/18 07:00 08/22/18 07:00 08/22/18 07:00 Intake and Output: 08/22/18 08/22/18 06:59 18:59 Intake Total 1800 Output Total 1550 Balance 250 - Medications Medications: Current Medications Piperacillin Sod/Tazobactam Sod (Zosyn 3.375 Gm Iv Premix) 3.375 gm in 50 mls @ 100 mls/hr IVPB Q6H [facility]; Protocol Last Admin: 08/22/18 11:03 Dose: 100 mls/hr Fluconazole (Diflucan Iv 200 Mg/100 Ml Ns) 100 mls @ 100 mls/hr IVPB Q24H [facility]; Protocol Last Admin: 08/21/18 20:37 Dose: 100 mls/hr Morphine Sulfate (Morphine) 2 mg IVP Q6H PRN PRN Reason: Pain, severe (8-10) Last Admin: 08/22/18 12:39 Dose: 2 mg Neomycin/Polymyxin/Bacitracin (Neosporin Triple Antibiotic Oint) 0 gm TOP BID [facility] Last Admin: 08/22/18 11:02 Dose: 1 applic Nystatin (Nystop Topical Powder) 1 applic TOP BID [facility] Last Admin: 08/22/18 11:01 Dose: 1 applic Ondansetron HCl (Zofran Inj) 4 mg IVP Q6H PRN PRN Reason: Nausea/Vomiting Last Admin: 08/22/18 06:45 Dose: 4 mg Pantoprazole Sodium (Protonix Inj) 40 mg IVP BID [facility] Last Admin: 08/22/18 10:57 Dose: 40 mg - Labs Labs: 08/22/18 07:02 08/22/18 07:02 PT 12.2 SECONDS (9.7-12.2) 08/19/18 14:00 INR 1.1 08/19/18 14:00 - Constitutional Appears: Well - Head Exam Head Exam: ATRAUMATIC, NORMAL INSPECTION, NORMOCEPHALIC - Eye Exam Eye Exam: EOMI, Normal appearance, PERRL Pupil Exam: NORMAL ACCOMODATION, PERRL - ENT Exam ENT Exam: Mucous Membranes Moist, Normal Exam - Neck Exam Neck Exam: Full ROM, Normal Inspection. absent: Lymphadenopathy - Respiratory Exam Respiratory Exam: Decreased Breath Sounds - Cardiovascular Exam Cardiovascular Exam: REGULAR RHYTHM, +S1, +S2 - GI/Abdominal Exam GI & Abdominal Exam: Soft, Diminished Bowel Sounds - Rectal Exam Rectal Exam: Deferred - Neurological Exam Neurological Exam: Oriented x3 Assessment and Plan (1) Abdominal pain Status: Acute (2) Cellulitis Status: Acute (3) Dehydration Status: Acute (4) Hyperglycemia Status: Acute (5) Airway compromise Status: Acute (6) Alcohol abuse Status: Acute (7) Alcohol intoxication Status: Acute (8) Alcohol use disorder, severe, dependence Status: Acute (9) Alcohol withdrawal Status: Acute (10) Alcoholic pancreatitis Status: Acute (11) Colitis Status: Acute (12) DKA (diabetic ketoacidoses) Status: Acute (13) Esophagitis Status: Acute (14) Failure to thrive Status: Acute (15) Hypokalemia Status: Acute (16) Hyponatremia Status: Acute (17) Obtunded Status: Acute (18) Seizure Status: Acute (19) Throat pain in adult Status: Acute (20) Upper gastrointestinal hemorrhage Status: Acute (21) Vomiting Status: Acute (22) Weakness Status: Acute - Assessment and Plan (Free Text) Plan: medications reviewed labs reviewed vitals reviewed diflucan morphine neosporin nystop topical powder potassium chloride protonix inj zofran zosyn
[2018-08-22] MEDS: Fluconazole IV 200mg/100 ml NS 100 ML IVPB SCH (20:00)
[2018-08-23] MEDS: Piperacill/Tazo 3.375gm in Dex 3.375 GM/50 ML BAG IVPB SCH ×4 (04:00→21:06)
[2018-08-23] MEDS: Bacitracin/Neomycin/Polymyxin Oint(30GM) TOP SCH ×3 (11:02→20:12)
--- NOTE | 2018-08-23 12:49 | CP.PCM.PN ---
<Anupama Garcia - Last Filed: 08/23/18 12:50> Subjective - Date & Time of Evaluation Date of Evaluation: 08/23/18 Time of Evaluation: 12:46 - Subjective Subjective: Gastroenterology Fellow/PGY6 Progress Note Patient admits to nausea and one vomiting episode due to large gulp of broth intake. Tolerating small volume oral liquid intake. Tolerating tube feeds. Notes bowel movement yesterday. A 12-point review of systems negative except for as above. Objective - Vital Signs/Intake and Output Vital Signs (last 24 hours): Temp Pulse Resp BP Pulse Ox 98.6 F 83 20 125/86 96 08/23/18 07:56 08/23/18 07:56 08/23/18 07:56 08/23/18 07:56 08/23/18 07:56 Intake and Output: 08/23/18 08/23/18 06:59 18:59 Intake Total 1690 Output Total 1000 Balance 690 - Medications Medications: Current Medications Piperacillin Sod/Tazobactam Sod (Zosyn 3.375 Gm Iv Premix) 3.375 gm in 50 mls @ 100 mls/hr IVPB Q6H [facility]; Protocol Last Admin: 08/23/18 10:55 Dose: 100 mls/hr Fluconazole (Diflucan Iv 200 Mg/100 Ml Ns) 100 mls @ 100 mls/hr IVPB Q24H [facility]; Protocol Last Admin: 08/22/18 20:00 Dose: 100 mls/hr Morphine Sulfate (Morphine) 2 mg IVP Q6H PRN PRN Reason: Pain, severe (8-10) Neomycin/Polymyxin/Bacitracin (Neosporin Triple Antibiotic Oint) 0 gm TOP BID [facility] [place] Last Admin: 08/23/18 11:02 Dose: 1 applic Nystatin (Nystop Topical Powder) 1 applic TOP BID [facility] Last Admin: 08/23/18 11:01 Dose: 1 applic Ondansetron HCl (Zofran Inj) 4 mg IVP Q6H PRN PRN Reason: Nausea/Vomiting Last Admin: 08/23/18 06:57 Dose: 4 mg Pantoprazole Sodium (Protonix Inj) 40 mg IVP BID [facility] [place] Last Admin: 08/23/18 10:55 Dose: 40 mg - Labs Labs: 08/22/18 07:02 08/22/18 07:02 PT 12.2 SECONDS (9.7-12.2) 08/19/18 14:00 INR 1.1 08/19/18 14:00 - Constitutional Appears: Non-toxic, No Acute Distress - Head Exam Head Exam: ATRAUMATIC, NORMOCEPHALIC - Eye Exam Eye Exam: EOMI, PERRL. absent: Scleral icterus Pupil Exam: PERRL. absent: Miosis, Mydriatic - ENT Exam ENT Exam: Mucous Membranes Moist, Normal Oropharynx - Neck Exam Neck Exam: Full ROM, Normal Inspection - Respiratory Exam Respiratory Exam: Clear to Ausculation Bilateral. absent: Rales, Rhonchi, Wheezes - Cardiovascular Exam Cardiovascular Exam: RRR, +S1, +S2. absent: Gallop, Rubs - GI/Abdominal Exam GI & Abdominal Exam: Soft, Normal Bowel Sounds. absent: Distended, Firm, Guarding, Rigid, Tenderness, Organomegaly, Rebound Additional comments: LUQ PEG site C/D/I - Extremities Exam Extremities Exam: Normal Inspection - Neurological Exam Neurological Exam: Alert, Awake - Psychiatric Exam Psychiatric exam: Normal Affect, Normal Mood - Skin Skin Exam: Dry, Intact, Normal Color, Warm Assessment and Plan - Assessment and Plan (Free Text) Assessment: 43 year old male with PMH of distal esophageal stricture s/p G-tube placement 06/23/18 in setting of PUD (esophageal, gastric, duodenal) on EGDs November 2014 and polysubstance Abuse over ten years (EtOH/cocaine/heroin/benzodiazepine s/tobacco), alcoholic pancreatitis 06/2018, Diabetes, and HTN presenting nausea, vomiting, and abdominal pain. Active treatment of esophageal stenosis s/p EGD (08/20) serial dilation complicated by esophageal tear with subsequent false lumen enclosed without perforation and abdominal wall cellulitis at gastric tube. EGD 06/17/2018 with repeat on 06/18 with pediatric scope but unable to traverse esophageal stricture at 30cm from incisors, negative for malignancy/HSV/CMV on pathology, LAGD esophagitis 15-35cm from incisors, and H. pylori negative gastritis. No prior colonoscopy. (07/23) EGD showing peptic stricture (approximately 5mm diameter) at 28cm from incisors s/p CRE balloon 6-7-8mm dilatation with fluoroscopy without complication- tissue friable, LAGD esophagitis Plan: -on broad spectrum antibiotics -continue liquid diet and tube feeds as tolerated -continue PPI IV BID -zofran PRN -counselled on alcohol cessation -will follow clinical course <Maddi Massey - Last Filed: 08/23/18 13:12> Objective - Vital Signs/Intake and Output Vital Signs (last 24 hours): Temp Pulse Resp BP Pulse Ox 98.6 F 83 20 125/86 96 08/23/18 07:56 08/23/18 07:56 08/23/18 07:56 08/23/18 07:56 08/23/18 07:56 Intake and Output: 08/23/18 08/23/18 06:59 18:59 Intake Total 1690 Output Total 1000 Balance 690 - Medications Medications: Current Medications Piperacillin Sod/Tazobactam Sod (Zosyn 3.375 Gm Iv Premix) 3.375 gm in 50 mls @ 100 mls/hr IVPB Q6H [facility]; Protocol Last Admin: 08/23/18 10:55 Dose: 100 mls/hr Fluconazole (Diflucan Iv 200 Mg/100 Ml Ns) 100 mls @ 100 mls/hr IVPB Q24H [facility]; Protocol Last Admin: 08/22/18 20:00 Dose: 100 mls/hr Morphine Sulfate (Morphine) 2 mg IVP Q6H PRN PRN Reason: Pain, severe (8-10) Neomycin/Polymyxin/Bacitracin (Neosporin Triple Antibiotic Oint) 0 gm TOP BID [facility] Last Admin: 08/23/18 11:02 Dose: 1 applic Nystatin (Nystop Topical Powder) 1 applic TOP BID [facility] [place] Last Admin: 08/23/18 11:01 Dose: 1 applic Ondansetron HCl (Zofran Inj) 4 mg IVP Q6H PRN PRN Reason: Nausea/Vomiting Last Admin: 08/23/18 06:57 Dose: 4 mg Pantoprazole Sodium (Protonix Inj) 40 mg IVP BID [facility] Last Admin: 08/23/18 10:55 Dose: 40 mg - Labs Labs: 08/22/18 07:02 08/22/18 07:02 PT 12.2 SECONDS (9.7-12.2) 08/19/18 14:00 INR 1.1 08/19/18 14:00 Attending/Attestation - Attestation I have personally seen and examined this patient.: Yes I have fully participated in the care of the patient.: Yes I have reviewed all pertinent clinical information, including history, physical exam and plan: Yes Notes (Text): 08/23/18 13:11 I have seen and examined the patient with the GI fellow. Tolerating clear liquids w/o difficulty. Advance to full liquid diet. Would d/c pt on this diet until repeat EGD in 4 wks. Ok to continue tube feeds. Needs to take PPI po bid. D/w pt at bedside.
--- NOTE | 2018-08-23 19:17 | CP.PCM.PN ---
Subjective - Date & Time of Evaluation Date of Evaluation: 08/23/18 - Subjective Subjective: patient seen today no nausea, no vomitng, no diarrhea, no fever, no dizziness, no shortness of breath Objective - Vital Signs/Intake and Output Vital Signs (last 24 hours): Temp Pulse Resp BP Pulse Ox 98.4 F 96 H 20 117/83 97 08/23/18 15:30 08/23/18 15:30 08/23/18 15:30 08/23/18 15:30 08/23/18 15:30 - Medications Medications: Current Medications Gabapentin (Neurontin) 300 mg PEG BID [facility] Last Admin: 08/23/18 17:02 Dose: 300 mg Piperacillin Sod/Tazobactam Sod (Zosyn 3.375 Gm Iv Premix) 3.375 gm in 50 mls @ 100 mls/hr IVPB Q6H [facility]; Protocol Last Admin: 08/23/18 16:06 Dose: 100 mls/hr Fluconazole (Diflucan Iv 200 Mg/100 Ml Ns) 100 mls @ 100 mls/hr IVPB Q24H [facility]; Protocol Last Admin: 08/22/18 20:00 Dose: 100 mls/hr Morphine Sulfate (Morphine) 2 mg IVP Q6H PRN PRN Reason: Pain, severe (8-10) Last Admin: 08/23/18 13:47 Dose: 2 mg Neomycin/Polymyxin/Bacitracin (Neosporin Triple Antibiotic Oint) 0 gm TOP BID [facility] Last Admin: 08/23/18 17:02 Dose: 1 applic Nystatin (Nystop Topical Powder) 1 applic TOP BID [facility] Last Admin: 08/23/18 17:02 Dose: 1 applic Ondansetron HCl (Zofran Inj) 4 mg IVP Q6H PRN PRN Reason: Nausea/Vomiting Last Admin: 08/23/18 06:57 Dose: 4 mg Pantoprazole Sodium (Protonix Inj) 40 mg IVP BID [facility] Last Admin: 08/23/18 17:02 Dose: 40 mg Trazodone HCl (Desyrel) 100 mg JT HS PRN PRN Reason: Insomnia - Labs Labs: 08/22/18 07:02 08/22/18 07:02 PT 12.2 SECONDS (9.7-12.2) 08/19/18 14:00 INR 1.1 08/19/18 14:00 - Constitutional Appears: Well - Head Exam Head Exam: ATRAUMATIC, NORMAL INSPECTION, NORMOCEPHALIC - Eye Exam Eye Exam: EOMI, Normal appearance, PERRL Pupil Exam: NORMAL ACCOMODATION, PERRL - ENT Exam ENT Exam: Mucous Membranes Moist, Normal Exam - Neck Exam Neck Exam: Full ROM, Normal Inspection. absent: Lymphadenopathy - Respiratory Exam Respiratory Exam: Decreased Breath Sounds - Cardiovascular Exam Cardiovascular Exam: REGULAR RHYTHM, +S1, +S2 - GI/Abdominal Exam GI & Abdominal Exam: Soft, Diminished Bowel Sounds - Rectal Exam Rectal Exam: Deferred - Neurological Exam Neurological Exam: Oriented x3 Assessment and Plan (1) Abdominal pain Status: Acute (2) Cellulitis Status: Acute (3) Dehydration Status: Acute (4) Hyperglycemia Status: Acute (5) Airway compromise Status: Acute (6) Alcohol abuse Status: Acute (7) Alcohol intoxication Status: Acute (8) Alcohol use disorder, severe, dependence Status: Acute (9) Alcohol withdrawal Status: Acute (10) Alcoholic pancreatitis Status: Acute (11) Colitis Status: Acute (12) DKA (diabetic ketoacidoses) Status: Acute (13) Esophagitis Status: Acute (14) Failure to thrive Status: Acute (15) Hypokalemia Status: Acute (16) Hyponatremia Status: Acute (17) Obtunded Status: Acute (18) Seizure Status: Acute (19) Throat pain in adult Status: Acute (20) Upper gastrointestinal hemorrhage Status: Acute (21) Vomiting Status: Acute (22) Weakness Status: Acute - Assessment and Plan (Free Text) Plan: medications reviewed vitals reivewed labs reviewed bentyl desyrel glucophage glucotrol xl humalog lactated ringers neurontin protonix ec tab toradol zofran tab
[2018-08-23] MEDS: Fluconazole IV 200mg/100 ml NS 100 ML IVPB SCH (19:48)
[2018-08-24] MEDS: Piperacill/Tazo 3.375gm in Dex 3.375 GM/50 ML BAG IVPB SCH ×4 (04:09→21:56)
[2018-08-24] MEDS: Morphine 4 MG/ML VIAL IVP PRN ×3 (07:49→19:46)
--- NOTE | 2018-08-24 10:09 | CP.PCM.PN ---
<Anupama Garcia - Last Filed: 08/24/18 11:48> Subjective - Date & Time of Evaluation Date of Evaluation: 08/24/18 Time of Evaluation: 10:04 - Subjective Subjective: Gastroenterology Fellow/PGY6 Progress Note Patient notes vomiting with intake of broth that he endorsed to be oily. Denies chest pain or abdominal pain. Tolerating full liquids and tube feeds. Notes daily bowel movement yesterday. A 12-point review of systems negative except for as above. Objective - Vital Signs/Intake and Output Vital Signs (last 24 hours): Temp Pulse Resp BP Pulse Ox 98.8 F 92 H 20 104/72 95 08/24/18 08:05 08/24/18 08:05 08/24/18 08:05 08/24/18 08:05 08/24/18 08:05 Intake and Output: 08/24/18 08/24/18 06:59 18:59 Intake Total 1040 Output Total 800 Balance 240 - Medications Medications: Current Medications Gabapentin (Neurontin) 300 mg PEG BID [facility] Last Admin: 08/23/18 17:02 Dose: 300 mg Morphine Sulfate (Morphine) 2 mg IVP Q6H PRN PRN Reason: Pain, severe (8-10) Last Admin: 08/24/18 07:49 Dose: 2 mg Neomycin/Polymyxin/Bacitracin (Neosporin Triple Antibiotic Oint) 0 gm TOP BID [facility] Last Admin: 08/23/18 20:12 Dose: Not Given Nystatin (Nystop Topical Powder) 1 applic TOP BID [facility] Last Admin: 08/23/18 20:12 Dose: Not Given Ondansetron HCl (Zofran Inj) 4 mg IVP Q6H PRN PRN Reason: Nausea/Vomiting Last Admin: 08/24/18 07:48 Dose: 4 mg Pantoprazole Sodium (Protonix Inj) 40 mg IVP BID [facility] Last Admin: 08/24/18 09:07 Dose: Not Given Trazodone HCl (Desyrel) 100 mg JT HS PRN PRN Reason: Insomnia - Labs Labs: 08/22/18 07:02 08/22/18 07:02 PT 12.2 SECONDS (9.7-12.2) 08/19/18 14:00 INR 1.1 08/19/18 14:00 - Constitutional Appears: Non-toxic, No Acute Distress - Head Exam Head Exam: ATRAUMATIC, NORMOCEPHALIC - Eye Exam Eye Exam: EOMI, PERRL. absent: Scleral icterus Pupil Exam: PERRL. absent: Miosis, Mydriatic - ENT Exam ENT Exam: Mucous Membranes Moist, Normal Oropharynx - Neck Exam Neck Exam: Full ROM, Normal Inspection - Respiratory Exam Respiratory Exam: Clear to Ausculation Bilateral. absent: Rales, Rhonchi, Wheezes - Cardiovascular Exam Cardiovascular Exam: RRR, +S1, +S2. absent: Gallop, Rubs - GI/Abdominal Exam GI & Abdominal Exam: Soft, Normal Bowel Sounds. absent: Distended, Firm, Guarding, Rigid, Tenderness, Organomegaly, Rebound Additional comments: PEG site C/D/I - Extremities Exam Extremities Exam: Normal Inspection - Neurological Exam Neurological Exam: Alert, Awake - Psychiatric Exam Psychiatric exam: Normal Affect, Normal Mood - Skin Skin Exam: Dry, Intact, Normal Color, Warm Assessment and Plan - Assessment and Plan (Free Text) Assessment: 43 year old male with PMH of distal esophageal stricture s/p G-tube placement 06/23/18 in setting of PUD (esophageal, gastric, duodenal) on EGDs November 2014 and polysubstance Abuse over ten years (EtOH/cocaine/heroin/benzodiazepines /tobacco), alcoholic pancreatitis 06/2018, Diabetes, and HTN presenting nausea, vomiting, and abdominal pain. Active treatment of esophageal stenosis s/p EGD (08/20) serial dilation complicated by esophageal tear with subsequent false lumen enclosed without perforation and abdominal wall cellulitis at gastric tube. EGD 06/17/2018 with repeat on 06/18 with pediatric scope but unable to traverse esophageal stricture at 30cm from incisors, negative for malignancy/HSV/CMV on pathology, LAGD esophagitis 15-35cm from incisors, and H. pylori negative gastritis. No prior colonoscopy. (07/23) EGD showing peptic stricture (approximately 5mm diameter) at 28cm from incisors s/p CRE balloon 6-7-8mm dilatation with fluoroscopy without complication- tissue friable, LAGD esophagitis Plan: -completed Zosyn 08/19-08/24 -tolerating full liquid diet, counselled on small volume portions -continue tube feed supplement to meet nutritional goals -continue PPI PO BID before meals -counselled on alcohol cessation -okay for discharge from GI standpoint on full liquid diet with plan for repeat EGD in 4 weeks <Maddi Massey - Last Filed: 08/24/18 11:59> Objective - Vital Signs/Intake and Output Vital Signs (last 24 hours): Temp Pulse Resp BP Pulse Ox 98.8 F 92 H 20 104/72 95 08/24/18 08:05 08/24/18 08:05 08/24/18 08:05 08/24/18 08:05 08/24/18 08:05 Intake and Output: 08/24/18 08/24/18 06:59 18:59 Intake Total 1040 Output Total 800 Balance 240 - Medications Medications: Current Medications Gabapentin (Neurontin) 300 mg PEG BID [facility] Last Admin: 08/24/18 10:34 Dose: 300 mg Piperacillin Sod/Tazobactam Sod (Zosyn 3.375 Gm Iv Premix) 3.375 gm in 50 mls @ 100 mls/hr IVPB Q6H [facility]; Protocol Morphine Sulfate (Morphine) 2 mg IVP Q6H PRN PRN Reason: Pain, severe (8-10) Last Admin: 08/24/18 07:49 Dose: 2 mg Neomycin/Polymyxin/Bacitracin (Neosporin Triple Antibiotic Oint) 0 gm TOP BID [facility] Last Admin: 08/24/18 10:33 Dose: 1 applic Nystatin (Nystop Topical Powder) 1 applic TOP BID [facility] Last Admin: 08/24/18 10:34 Dose: 1 applic Ondansetron HCl (Zofran Inj) 4 mg IVP Q6H PRN PRN Reason: Nausea/Vomiting Last Admin: 08/24/18 07:48 Dose: 4 mg Pantoprazole Sodium (Protonix Inj) 40 mg IVP BID [facility] Last Admin: 08/24/18 09:07 Dose: Not Given Trazodone HCl (Desyrel) 100 mg JT HS PRN PRN Reason: Insomnia - Labs Labs: 08/22/18 07:02 08/22/18 07:02 PT 12.2 SECONDS (9.7-12.2) 08/19/18 14:00 INR 1.1 08/19/18 14:00 Attending/Attestation - Attestation I have personally seen and examined this patient.: Yes I have fully participated in the care of the patient.: Yes I have reviewed all pertinent clinical information, including history, physical exam and plan: Yes Notes (Text): Pt tolerating full liquids, but notes that he vomited a little today 2/2 oily broth. Otherwise, feels well and denies any pain. Continue tube feeds. Stable for d/c from the GI perspective. Advised pt to f/u in the office and then repeat EGD in 3-4 wks. Discussed with the pt. 08/24/18 11:55
[2018-08-24] MEDS: Bacitracin/Neomycin/Polymyxin Oint(30GM) TOP SCH ×2 (10:33→17:39)
--- NOTE | 2018-08-24 15:56 | CP.PCM.PN ---
Subjective - Date & Time of Evaluation Date of Evaluation: 08/24/18 - Subjective Subjective: patient seen and examined today at bedside no diarrhea no fever no dizziness no vomiting no shortness no nausea Objective - Vital Signs/Intake and Output Vital Signs (last 24 hours): Temp Pulse Resp BP Pulse Ox 98.8 F 92 H 20 104/72 95 08/24/18 08:05 08/24/18 08:05 08/24/18 08:05 08/24/18 08:05 08/24/18 08:05 Intake and Output: 08/24/18 08/24/18 06:59 18:59 Intake Total 1040 Output Total 800 Balance 240 - Medications Medications: Current Medications Gabapentin (Neurontin) 300 mg PEG BID [facility] Last Admin: 08/24/18 10:34 Dose: 300 mg Piperacillin Sod/Tazobactam Sod (Zosyn 3.375 Gm Iv Premix) 3.375 gm in 50 mls @ 100 mls/hr IVPB Q6H [facility]; Protocol Morphine Sulfate (Morphine) 2 mg IVP Q6H PRN PRN Reason: Pain, severe (8-10) Last Admin: 08/24/18 13:50 Dose: 2 mg Neomycin/Polymyxin/Bacitracin (Neosporin Triple Antibiotic Oint) 0 gm TOP BID [facility] Last Admin: 08/24/18 10:33 Dose: 1 applic Nystatin (Nystop Topical Powder) 1 applic TOP BID [facility] Last Admin: 08/24/18 10:34 Dose: 1 applic Ondansetron HCl (Zofran Inj) 4 mg IVP Q6H PRN PRN Reason: Nausea/Vomiting Last Admin: 08/24/18 13:50 Dose: 4 mg Pantoprazole Sodium (Protonix Inj) 40 mg IVP BID [facility] Last Admin: 08/24/18 09:07 Dose: Not Given Trazodone HCl (Desyrel) 100 mg JT HS PRN PRN Reason: Insomnia - Labs Labs: 08/22/18 07:02 08/22/18 07:02 PT 12.2 SECONDS (9.7-12.2) 08/19/18 14:00 INR 1.1 08/19/18 14:00 - Constitutional Appears: Well - Head Exam Head Exam: ATRAUMATIC, NORMAL INSPECTION, NORMOCEPHALIC - Eye Exam Eye Exam: EOMI, Normal appearance, PERRL Pupil Exam: NORMAL ACCOMODATION, PERRL - ENT Exam ENT Exam: Mucous Membranes Moist, Normal Exam - Neck Exam Neck Exam: Full ROM, Normal Inspection. absent: Lymphadenopathy - Respiratory Exam Respiratory Exam: Decreased Breath Sounds - Cardiovascular Exam Cardiovascular Exam: REGULAR RHYTHM, +S1, +S2 - GI/Abdominal Exam GI & Abdominal Exam: Soft, Diminished Bowel Sounds - Rectal Exam Rectal Exam: Deferred - Neurological Exam Neurological Exam: Oriented x3 Assessment and Plan (1) Abdominal pain Status: Acute (2) Cellulitis Status: Acute (3) Dehydration Status: Acute (4) Hyperglycemia Status: Acute (5) Airway compromise Status: Acute (6) Alcohol abuse Status: Acute (7) Alcohol intoxication Status: Acute (8) Alcohol use disorder, severe, dependence Status: Acute (9) Alcohol withdrawal Status: Acute (10) Alcoholic pancreatitis Status: Acute (11) Colitis Status: Acute (12) DKA (diabetic ketoacidoses) Status: Acute (13) Esophagitis Status: Acute (14) Failure to thrive Status: Acute (15) Hypokalemia Status: Acute (16) Hyponatremia Status: Acute (17) Obtunded Status: Acute (18) Seizure Status: Acute (19) Throat pain in adult Status: Acute (20) Upper gastrointestinal hemorrhage Status: Acute (21) Vomiting Status: Acute (22) Weakness Status: Acute - Assessment and Plan (Free Text) Plan: labs reviewed medications reviewed vitals reviewed bentyl desyrel glucophage glucotrol xl humalog lactated ringers neurontin protonix ec tab toradol zofran tab
[2018-08-25] MEDS: Morphine 4 MG/ML VIAL IVP PRN ×2 (03:08→09:33)
[2018-08-25] MEDS: Piperacill/Tazo 3.375gm in Dex 3.375 GM/50 ML BAG IVPB SCH ×2 (03:11→09:40)
[2018-08-25] MEDS ORDERED: Glucagon Recombinant 1 mg Inj IM PRN (08:35)
[2018-08-25] MEDS ORDERED: Dextrose 50% SYRINGE Inj (50 ml) IV PRN (08:35)
--- NOTE | 2018-08-25 08:41 | CP.PCM.PN ---
Subjective - Date & Time of Evaluation Date of Evaluation: 08/25/18 Time of Evaluation: 08:40 - Subjective Subjective: Medicine progress note for Dr. Gill Patient seen and examined at bedside. No acute events overnight. Patient reports to be tolerating liquid diet. Alcohol cessation is further advised. Patient denies fever, chills, shortness of breath, chest pain, nausea, vomiting, or urinary symptoms. Objective - Vital Signs/Intake and Output Vital Signs (last 24 hours): Temp Pulse Resp BP Pulse Ox 98.9 F 98 H 20 129/89 98 08/25/18 00:00 08/25/18 00:00 08/25/18 00:00 08/25/18 00:00 08/25/18 00:00 Intake and Output: 08/25/18 08/25/18 06:59 18:59 Intake Total 780 Balance 780 - Medications Medications: Current Medications Dextrose (Dextrose 50% Inj) 0 ml IV STAT PRN; Protocol PRN Reason: Hypoglycemia Protocol Dextrose (Glutose 15) 0 gm PO ONCE PRN; Protocol PRN Reason: Hypoglycemia Protocol Gabapentin (Neurontin) 300 mg PEG BID [facility] Last Admin: 08/24/18 17:39 Dose: 300 mg Glucagon (Glucagen Diagnostic Kit) 0 mg IM STAT PRN; Protocol PRN Reason: Hypoglycemia Protocol Piperacillin Sod/Tazobactam Sod (Zosyn 3.375 Gm Iv Premix) 3.375 gm in 50 mls @ 100 mls/hr IVPB Q6H [facility]; Protocol Last Admin: 08/25/18 03:11 Dose: 100 mls/hr Dextrose (Dextrose 5% In Water 1000 Ml) 1,000 mls @ 0 mls/hr IV .Q0M PRN; Protocol PRN Reason: Hypoglycemia Protocol Insulin Human Regular (Novolin R) 0 unit SC ACHS [facility]; Protocol Morphine Sulfate (Morphine) 2 mg IVP Q6H PRN PRN Reason: Pain, severe (8-10) Last Admin: 08/25/18 03:08 Dose: 2 mg Neomycin/Polymyxin/Bacitracin (Neosporin Triple Antibiotic Oint) 0 gm TOP BID [facility] Last Admin: 08/24/18 17:39 Dose: 1 applic Nystatin (Nystop Topical Powder) 1 applic TOP BID [facility] Last Admin: 08/24/18 17:39 Dose: 1 applic Ondansetron HCl (Zofran Inj) 4 mg IVP Q6H PRN PRN Reason: Nausea/Vomiting Last Admin: 08/24/18 13:50 Dose: 4 mg Pantoprazole Sodium (Protonix Inj) 40 mg IVP BID [facility] Last Admin: 08/24/18 17:39 Dose: 40 mg Trazodone HCl (Desyrel) 100 mg JT HS PRN PRN Reason: Insomnia Last Admin: 08/24/18 21:57 Dose: 100 mg - Labs Labs: 08/22/18 07:02 08/22/18 07:02 PT 12.2 SECONDS (9.7-12.2) 08/19/18 14:00 INR 1.1 08/19/18 14:00 - Constitutional Appears: Well, No Acute Distress - Head Exam Head Exam: ATRAUMATIC, NORMAL INSPECTION, NORMOCEPHALIC - Eye Exam Eye Exam: EOMI, Normal appearance - Neck Exam Neck Exam: Full ROM, Normal Inspection. absent: Lymphadenopathy - Respiratory Exam Respiratory Exam: Clear to Ausculation Bilateral, NORMAL BREATHING PATTERN. absent: Wheezes, Respiratory Distress - Cardiovascular Exam Cardiovascular Exam: REGULAR RHYTHM, +S1, +S2. absent: Murmur - GI/Abdominal Exam GI & Abdominal Exam: Soft, Normal Bowel Sounds Additional comments: PEG intact - Extremities Exam Extremities Exam: Full ROM, Normal Capillary Refill, Normal Inspection. absent: Joint Swelling, Pedal Edema - Neurological Exam Neurological Exam: Alert, Awake, Oriented x3 - Psychiatric Exam Psychiatric exam: Normal Affect, Normal Mood - Skin Skin Exam: Normal Color, Warm Assessment and Plan - Assessment and Plan (Free Text) Assessment: Distal esophageal stricture -s/p dilation complicated by esophageal tear with endoscopic closure -Follow GI team's recommendations -Full liquid diet with small volume -Start Pantoprazole 40mg PO BID -Repeat EGD in 4 weeks with outpatient GI Type 2 diabetes -ISS -accucheck ACHS -continue Metformin 1000mg BID -continue Glimepiride 4mg BID Alcohol abuse -Alcohol cessation is strongly advised Patient is medically stable to be discharged from the hospital Case discussed with attending Dr. Morgan Gill All management per attending physician Dr. Gill
--- NOTE | 2018-08-25 08:55 | CP.PCM.PN ---
<Jovanni Bhatt - Last Filed: 08/25/18 08:52> Subjective - Date & Time of Evaluation Date of Evaluation: 08/25/18 Time of Evaluation: 08:52 - Subjective Subjective: Tolerating full liquid diet. Passing flatus. Mild abdominal pain at PEG site. Denies chest pain, fever, vomiting. 5pt ROS completed and negative except for above. Objective - Vital Signs/Intake and Output Vital Signs (last 24 hours): Temp Pulse Resp BP Pulse Ox 98.9 F 98 H 20 129/89 98 08/25/18 00:00 08/25/18 00:00 08/25/18 00:00 08/25/18 00:00 08/25/18 00:00 Intake and Output: 08/25/18 08/25/18 06:59 18:59 Intake Total 780 Balance 780 - Medications Medications: Current Medications Dextrose (Dextrose 50% Inj) 0 ml IV STAT PRN; Protocol PRN Reason: Hypoglycemia Protocol Dextrose (Glutose 15) 0 gm PO ONCE PRN; Protocol PRN Reason: Hypoglycemia Protocol Gabapentin (Neurontin) 300 mg PEG BID [facility] Last Admin: 08/24/18 17:39 Dose: 300 mg Glucagon (Glucagen Diagnostic Kit) 0 mg IM STAT PRN; Protocol PRN Reason: Hypoglycemia Protocol Piperacillin Sod/Tazobactam Sod (Zosyn 3.375 Gm Iv Premix) 3.375 gm in 50 mls @ 100 mls/hr IVPB Q6H [facility]; Protocol Last Admin: 08/25/18 03:11 Dose: 100 mls/hr Dextrose (Dextrose 5% In Water 1000 Ml) 1,000 mls @ 0 mls/hr IV .Q0M PRN; Protocol PRN Reason: Hypoglycemia Protocol Insulin Human Regular (Novolin R) 0 unit SC ACHS [facility]; Protocol Morphine Sulfate (Morphine) 2 mg IVP Q6H PRN PRN Reason: Pain, severe (8-10) Last Admin: 08/25/18 03:08 Dose: 2 mg Neomycin/Polymyxin/Bacitracin (Neosporin Triple Antibiotic Oint) 0 gm TOP BID [facility] Last Admin: 08/24/18 17:39 Dose: 1 applic Nystatin (Nystop Topical Powder) 1 applic TOP BID [facility] Last Admin: 08/24/18 17:39 Dose: 1 applic Ondansetron HCl (Zofran Inj) 4 mg IVP Q6H PRN PRN Reason: Nausea/Vomiting Last Admin: 08/24/18 13:50 Dose: 4 mg Pantoprazole Sodium (Protonix Inj) 40 mg IVP BID [facility] Last Admin: 08/24/18 17:39 Dose: 40 mg Trazodone HCl (Desyrel) 100 mg JT HS PRN PRN Reason: Insomnia Last Admin: 08/24/18 21:57 Dose: 100 mg - Labs Labs: 08/22/18 07:02 08/22/18 07:02 PT 12.2 SECONDS (9.7-12.2) 08/19/18 14:00 INR 1.1 08/19/18 14:00 - Constitutional Appears: Non-toxic, No Acute Distress, Cachectic, Chronically Ill - ENT Exam ENT Exam: Mucous Membranes Moist, Normal Exam - Respiratory Exam Respiratory Exam: Clear to Ausculation Bilateral, NORMAL BREATHING PATTERN - Cardiovascular Exam Cardiovascular Exam: REGULAR RHYTHM, +S1, +S2 - GI/Abdominal Exam GI & Abdominal Exam: Soft, Normal Bowel Sounds. absent: Tenderness Additional comments: peg site with mild erythema. - Neurological Exam Neurological Exam: Alert, Awake, Oriented x3 - Psychiatric Exam Psychiatric exam: Normal Affect, Normal Mood - Skin Skin Exam: Normal Color, Warm Assessment and Plan - Assessment and Plan (Free Text) Assessment: 43 year old male with PMH of distal esophageal stricture s/p G-tube placement 06/23/18 in setting of PUD (esophageal, gastric, duodenal) on EGDs November 2014 and polysubstance Abuse over ten years (EtOH/ cocaine/heroin/benzodiazepines/tobacco), alcoholic pancreatitis 06/2018, Diabetes, and HTN presenting nausea, vomiting, and abdominal pain. Active treatment of esophageal stenosis s/p EGD (08/20) serial dilation complicated by esophageal tear with subsequent false lumen enclosed without perforation and abdominal wall cellulitis at gastric tube. EGD 06/17/2018 with repeat on 06/18 with pediatric scope but unable to traverse esophageal stricture at 30cm from incisors, negative for malignancy/HSV/CMV on pathology, LAGD esophagitis 15-35cm from incisors, and H. pylori negative gastritis. No prior colonoscopy. (07/23) EGD showing peptic stricture (approximately 5mm diameter) at 28cm from incisors s/p CRE balloon 6-7-8mm dilatation with fluoroscopy without complication- tissue friable, LAGD esophagitis Plan: -completed Zosyn 08/19-08/25 -tolerating full liquid diet, counselled on small volume portions -continue tube feed supplement to meet nutritional goals -continue PPI PO BID before meals -counselled on alcohol cessation -okay for discharge from GI standpoint on full liquid diet with plan for repeat EGD in 4 weeks Case discussed with Dr. Jasso, see attestation <Smith Jasso - Last Filed: 08/25/18 10:08> Objective - Vital Signs/Intake and Output Vital Signs (last 24 hours): Temp Pulse Resp BP Pulse Ox 98.9 F 98 H 20 129/89 98 08/25/18 00:00 08/25/18 00:00 08/25/18 00:00 08/25/18 00:00 08/25/18 00:00 Intake and Output: 08/25/18 08/25/18 06:59 18:59 Intake Total 780 Balance 780 - Medications Medications: Current Medications Dextrose (Dextrose 50% Inj) 0 ml IV STAT PRN; Protocol PRN Reason: Hypoglycemia Protocol Dextrose (Glutose 15) 0 gm PO ONCE PRN; Protocol PRN Reason: Hypoglycemia Protocol Gabapentin (Neurontin) 300 mg PEG BID [facility] Last Admin: 08/25/18 09:35 Dose: 300 mg Glucagon (Glucagen Diagnostic Kit) 0 mg IM STAT PRN; Protocol PRN Reason: Hypoglycemia Protocol Piperacillin Sod/Tazobactam Sod (Zosyn 3.375 Gm Iv Premix) 3.375 gm in 50 mls @ 100 mls/hr IVPB Q6H [facility]; Protocol Last Admin: 08/25/18 09:40 Dose: 100 mls/hr Dextrose (Dextrose 5% In Water 1000 Ml) 1,000 mls @ 0 mls/hr IV .Q0M PRN; Protocol PRN Reason: Hypoglycemia Protocol Insulin Human Regular (Novolin R) 0 unit SC ACHS [facility]; Protocol Morphine Sulfate (Morphine) 2 mg IVP Q6H PRN PRN Reason: Pain, severe (8-10) Last Admin: 08/25/18 09:33 Dose: 2 mg Neomycin/Polymyxin/Bacitracin (Neosporin Triple Antibiotic Oint) 0 gm TOP BID [facility] Last Admin: 08/24/18 17:39 Dose: 1 applic Nystatin (Nystop Topical Powder) 1 applic TOP BID [facility] Last Admin: 08/25/18 09:38 Dose: 1 applic Ondansetron HCl (Zofran Inj) 4 mg IVP Q6H PRN PRN Reason: Nausea/Vomiting Last Admin: 08/24/18 13:50 Dose: 4 mg Pantoprazole Sodium (Protonix Inj) 40 mg IVP BID [facility] Last Admin: 08/25/18 09:35 Dose: 40 mg Trazodone HCl (Desyrel) 100 mg JT HS PRN PRN Reason: Insomnia Last Admin: 08/24/18 21:57 Dose: 100 mg - Labs Labs: 08/22/18 07:02 08/22/18 07:02 PT 12.2 SECONDS (9.7-12.2) 08/19/18 14:00 INR 1.1 08/19/18 14:00 Attending/Attestation - Attestation I have personally seen and examined this patient.: Yes I have fully participated in the care of the patient.: Yes I have reviewed all pertinent clinical information, including history, physical exam and plan: Yes Notes (Text): 08/25/18 10:05 I have seen and examined patient with GI fellow. No acute events overnight, he is seen resting in bed comfortably. He reports mild dysphagia after attempting to eat oatmeal. He otherwise denies nausea, vomiting, fever/chills. Distal esophageal stricture s/p dilation complicated by esophageal tear with endoscopic closure s/p gastrostomy placement by surgical team Polysubstance abuse - Full liquid diet as tolerated - Continue with tube feeding - Continue with PPI therapy - Patient should follow up with Dr. Massey in office and will consider repeat dilation in 1 month. No further planned GI intervention at this time, will sign off case. Please reconsult as necessary, thank you.
[2018-08-25] MEDS ORDERED: (Novolin R) Insulin Human Regular 100 units/ml vial SC SCH (11:30)
[2018-08-25] MEDS: Bacitracin/Neomycin/Polymyxin Oint(30GM) TOP SCH (12:22)
[2018-08-25 14:03] LABS: BASO % 0.3 % (0.0-2.0); EOS # 0.1 K/uL (0.0-0.7); EOS % 1.5 % (0.0-4.0); HEMOGLOBIN 10.3 g/dL (12.0-18.0); LYMPH # 1.7 K/uL (1.0-4.3); LYMPH % 18.1 % (20.0-40.0); MEAN CELL VOLUME 83.2 fL (80.0-94.0); MEAN CORPUSCULAR HEMOGLOBIN 26.8 pg (27.0-31.0); MEAN CORPUSCULAR HGB CONC 32.2 g/dL (33.0-37.0); MEAN PLATELET VOLUME 7.9 fL (7.2-11.7); MONO # 0.9 K/uL (0.0-0.8); NEUT # 6.5 K/uL (1.8-7.0); NEUT % 70.1 % (50.0-75.0); RBC 3.83 Mil/uL (4.40-5.90); RED CELL DISTRIBUTION WIDTH 18.4 % (11.5-14.5); WHITE BLOOD COUNT 9.3 K/uL (4.8-10.8)
[2018-08-25 14:48] LABS: BLOOD UREA NITROGEN 8 mg/dL (9-20); CALCIUM 8.9 mg/dl (8.6-10.4); GFR NON-AFRICAN AMERICAN > 60
[2018-08-25 16:53] VITALS: BP 114/71; PULSE 91; TEMP 98; O2SAT 99
== END 2018-08-25 14:42 | disposition home or self-care (01) | DRG 182 ==
LOC: C.ER 13:28 → C.9E 18:38 → C.3T 21:13
PROVIDERS: ADMIT Internal Medicine Nephrology; ATTEND Internal Medicine Nephrology
PROC: 0D758DZ Dilation of Esophagus with Intraluminal Device, Via Natural or Artificial Opening Endoscopic (ICD-10-PCS; principal; 2018-08-20 13:11)
DX: K22.2 Esophageal obstruction (principal); R56.9 Unspecified convulsions; L03.311 Cellulitis of abdominal wall; E87.6 Hypokalemia; E87.1 Hypo-osmolality and hyponatremia; F10.239 Alcohol dependence with withdrawal, unspecified; E11.10 Type 2 diabetes mellitus with ketoacidosis without coma; I10 Essential (primary) hypertension; R62.7 Adult failure to thrive; Z59.0 Homelessness; Z68.1 Body mass index [BMI] 19.9 or less, adult; K52.9 Noninfective gastroenteritis and colitis, unspecified; Z79.84 Long term (current) use of oral hypoglycemic drugs; Z93.1 Gastrostomy status; G89.29 Other chronic pain; E86.0 Dehydration